=== PATIENT | female | born 1960 | race Caucasian/White ===

== ENCOUNTER 2016-10-11 11:15 | Outpatient (CLI) | payer MEDICAID | END 2016-10-11 11:16 | disposition home or self-care (01) | DX: M19.071 Primary osteoarthritis, right ankle and foot (principal) ==

== ENCOUNTER 2016-12-07 14:48 | Outpatient (CLI) | payer MEDICAID | END 2016-12-07 14:49 | disposition home or self-care (01) | DX: R53.83 Other fatigue (principal) ==

== ENCOUNTER 2017-06-15 11:35 | Emergency (ER) | payer MEDICAID ==
--- NOTE | 2017-06-15 12:18 | ED Physician Documentation ---
PD HPI ABD PAIN - Stated complaint Stated Complaint: ABD PAIN/RASH - Chief complaint Chief Complaint: General - History obtained from History obtained from: Patient - History of Present Illness Timing - onset: How many days ago (2-3 days of upper right abd pain, intermittently. Has had similar with pancreatitis in the past. Nausea but no vomiting. Thought she had yellowing of eyes. Also with left eyebrow/upper lid redness and some weeping in rounded patch over past few days. No other rash noted.) Timing - duration: Days Timing - details: Gradual onset, Still present, Waxing and waning Quality: Cramping, Aching, Pain Location: RUQ, Epigastric Radiation: No: Lower back Improved by: No: Eating, Position Worsened by: Eating, Palpation. No: Position Associated symptoms: Nausea, Loss of appetite. No: Fever, Vomiting, Diarrhea Similar symptoms before: Diagnosis (pancreatitis and usually just has clear liquids and takes meds for 1-2 days.) Recently seen: Not recently seen Review of Systems Constitutional: denies: Fever, Chills Nose: denies: Rhinorrhea / runny nose, Congestion Throat: denies: Sore throat Cardiac: denies: Chest pain / pressure Respiratory: denies: Cough GI: reports: Abdominal Pain, Nausea, Vomiting (few times). denies: Constipation , Diarrhea, Bloody / black stool : denies: Dysuria, Frequency Skin: reports: Rash (left upper eyelid/eyebrow with rounded patch red rash for few days, increasing size.). 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 06/15/17 Ondansetron Odt [Zofran] 4 mg TL Q6H PRN #15 tablet 06/15/17 Sulfamethox/Trimeth 800/160 1 each PO BID #10 tablet 06/15/17 [Bactrim Ds 800/160] oxyCODONE [Roxicodone] 5 mg PO Q4-6H PRN #15 tablet 06/15/17 - Allergies Allergies/Adverse Reactions: Allergies Allergy/AdvReac Type Severity Reaction Status Date / Time ketorolac tromethamine * Allergy Severe Hives Verified 06/15/17 12:22 [From Toradol] - Social History Does the pt smoke?: Yes Smoking Status: Current every day smoker Does the pt drink ETOH?: Yes Does the pt have substance abuse?: No - Immunizations Immunizations are current?: Yes Immunizations: TDAP current <10years - POLST Patient has POLST: No PD ED PE NORMAL - Vitals Vital signs reviewed: Yes - General General: Alert and oriented X 3, No acute distress, Well developed/nourished - HEENT HEENT: Atraumatic, PERRL (nonicteric), Ears normal, Pharynx benign - Neck Neck: Supple, no meningeal sign, No adenopathy - Cardiac Cardiac: RRR, No murmur - Respiratory Respiratory: Clear bilaterally - Abdomen Abdomen: Soft, Non distended, No organomegaly, Other (tender RUQ/epigastric area with some guarding, no percussion tender. ) - Female Female : Deferred - Rectal Rectal: Deferred - Back Back: No CVA TTP - Derm Derm: Normal color, Warm and dry, Other - Extremities Extremities: No deformity, No tenderness to palpate, No edema, No calf tenderness / cord - Neuro Neuro: Alert and oriented X 3, No motor deficit, Normal speech - Psych Psych: Normal mood Results - Vitals Vitals: Vital Signs - 24 hr 06/15/17 06/15/17 06/15/17 11:40 13:39 13:43 Temperature 36.9 C 36.7 C Heart Rate 73 69 66 Respiratory 18 16 16 Rate Blood Pressure 136/86 H 99/66 110/77 O2 Saturation 100 99 99 06/15/17 14:41 Temperature 36.5 C Heart Rate 62 Respiratory 18 Rate Blood Pressure 118/71 O2 Saturation 100 Oxygen O2 Source Room air - Labs Labs: Laboratory Tests 06/15/17 06/15/17 12:30 12:30 WBC 4.2 L RBC 4.07 L Hgb 13.1 Hct 38.9 MCV 95.6 MCH 32.2 H MCHC 33.7 RDW 16.2 H Plt Count 187 MPV 7.1 L Neut # 2.4 Lymph # 1.3 L [place] # 0.4 Eos # 0.1 Baso # 0.0 Absolute Nucleated RBC 0.00 Nucleated RBC % 0.1 Sodium 138 Potassium 3.9 Chloride 101 Carbon Dioxide 27 Anion Gap 10.0 BUN 19 Creatinine 0.6 Estimated GFR (MDRD) 103 Glucose 118 H Calcium 9.6 Total Bilirubin 0.5 AST 148 H ALT 187 H Alkaline Phosphatase 63 Total Protein 7.2 Albumin 4.5 Globulin 2.7 Albumin/Globulin Ratio 1.7 Lipase 77 H - Rads (name of study) RUQ U/S Radiology: Prelim report reviewed (liver abnormal c/w cirrhosis. CBD 9 mm. GB normal. ), EMP read contemporaneously (comparison with MRI abd 11/25 showing CBD 7 mm, is fairly similar. ) PD MEDICAL DECISION MAKING - ED course Complexity details: reviewed results (bili normal and Alk phos okay so not obvious CBD blockage. It is dilated at 9 mm but comparison is 7 mm on prior study. Labs show mild elevation lipase of 77, similar to prior labs. Does not seem significant pancreatic inflammation. The facial rash looks like small patch of impetigo on eyebrow/eyelid area. ), considered differential (eval for pancreatitis, CBD blockage, other process. ), d/w patient Departure - Departure Disposition: 01 Home, Self Care Clinical Impression: Right upper quadrant abdominal pain, Skin infection Pancreatitis, chronic Qualifiers: Pancreatitis type: unspecified pancreatitis type Qualified Code(s): K86.1 - Other chronic pancreatitis Condition: Stable Record reviewed to determine appropriate education?: Yes Instructions: ED Abdominal Pain Unkn Cause, ED Pancreatitis Follow-Up: Miguel Chatterjee PA-C [Primary Care Provider] - Prescriptions: Mupirocin 1 applic TP TID #15 oint...g. Ondansetron Odt [Zofran] 4 mg TL Q6H PRN #15 tablet PRN Reason: Nausea / Vomiting oxyCODONE [Roxicodone] 5 mg PO Q4-6H PRN #15 tablet PRN Reason: Pain Sulfamethox/Trimeth 800/160 [Bactrim Ds 800/160] 1 each PO BID #10 tablet Comments: Small frequent fluids. Clear liquid diet for the next few days. Ondansetron if needed for nausea. Oxycodone if needed for pain. Recheck with your primary care if not better over the next few more days. Your ultrasound shows some inflammation of the liver. Your pancreas numbers are just slightly elevated so consider mild pancreatitis at this time. The common bile duct does not appear clogged. Discharge Date/Time: 06/15/17 14:44
[2017-06-15] MEDS ORDERED: ONDANSETRON 4 MG/2 ML VIAL ONE ×2 (12:37→14:11)
[2017-06-15] MEDS ORDERED: HYDROmorphone 1 MG/ML CARPUJECT ONE ×2 (12:37→14:11)
[2017-06-15 12:38] LABS: BASOPHILS % (AUTO) 0.5 %; EOSINOPHILS # (AUTO) 0.1 10^3/uL (0.0-0.7); EOSINOPHILS % (AUTO) 1.5 %; HCT - HEMATOCRIT 38.9 % (37.0-47.0); HGB - HEMOGLOBIN 13.1 g/dL (12.0-16.0); LYMPHOCYTES # (AUTO) 1.3 10^3/uL (1.5-3.5); LYMPHOCYTES % (AUTO) 31.4 %; MEAN CORPUSCULAR HEMOGLOBIN 32.2 pg (27.0-31.0); MEAN CORPUSCULAR HGB CONC 33.7 g/dL (32.0-36.0); MEAN CORPUSCULAR VOLUME 95.6 fL (81.0-99.0); MEAN PLATELET VOLUME 7.1 fL (7.9-10.8); MONOCYTES # (AUTO) 0.4 10^3/uL (0.0-1.0); MONOCYTES % (AUTO) 9.5 %; NEUTROPHILS # (AUTO) 2.4 10^3/uL (1.5-6.6); NEUTROPHILS % (AUTO) 57.1 %; NUCLEATED RED BLOOD CELLS AUTO 0.1 /100WBC; RED BLOOD COUNT 4.07 10^6/uL (4.20-5.40); RED CELL DISTRIBUTION WIDTH 16.2 % (12.0-15.0); UNCORRECTED WHITE BLOOD COUNT 4.2 x10^3/uL; WHITE BLOOD COUNT 4.2 x10^3/uL (4.8-10.8)
[2017-06-15] MEDS ORDERED: MUPIROCIN 2% OINT 1 GM ONE (12:38)
[2017-06-15 12:57] LABS: ALBUMIN/GLOBULIN RATIO 1.7 (1.0-2.2); BILIRUBIN,TOTAL 0.5 mg/dL (0.2-1.0); CALCIUM 9.6 mg/dL (8.5-10.3); CREATININE 0.6 mg/dL (0.4-1.0); POTASSIUM 3.9 mmol/L (3.5-5.0); TOTAL PROTEIN 7.2 g/dL (6.7-8.2)
[2017-06-15] MEDS: SODIUM CHLORIDE 0.9% 1,000 ML IV ONE (13:12)
[2017-06-15] MEDS: MUPIROCIN 2% OINT 1 GM TOP STA (13:13)
[2017-06-15] MEDS: ONDANSETRON 4 MG/2 ML VIAL IVP STA ×2 (13:13→14:10)
[2017-06-15] MEDS: HYDROmorphone 1 MG/ML CARPUJECT IVP STA ×2 (13:13→14:10)
--- NOTE | 2017-06-15 13:41 | Ultrasound Report ---
RIGHT UPPER QUADRANT ULTRASOUND: 06/15/2017 CLINICAL INDICATION: Pain. TECHNIQUE: Real-time scanning was performed with food service sales representatives static images obtained. FINDINGS: The liver is enlarged, measuring 19.5 cm. Hepatic echogenicity is diffusely increased, and the margin appears mildly lobular, suggestive of cirrhosis. No intrahepatic biliary dilatation is georgina reciated. The common bile duct is enlarged, measuring 9 mm. The gallbladder is unremarkable. The righ t kidney measures 10.4 cm, and demonstrates no hydronephrosis. The pancreatic duct is mildly prominen t, as noted on previous MRI of 12/09/2015. IMPRESSION: A 9 MM COMMON BILE DUCT. NORMAL GALLBLADDER. HETEROGENEOUS, ECHOGENIC LIVER, WITH POSSIBL E EARLY CIRRHOTIC CHANGES. NO EVIDENCE OF CHOLELITHIASIS. JOB #: [id number] EXT JOB #:[id number]
[2017-06-15 14:41] VITALS: BP 118/71
--- NOTE | 2017-06-16 13:24 | ED Physician Documentation ---
ED Addendum - Addendum Addendum: 06/16/17 13:23 pt needed her septra and bactroban rx reprinted
== END 2017-06-15 14:44 | disposition home or self-care (01) ==
LOC: ED 11:35
DX: R10.10 Upper abdominal pain, unspecified (principal); L08.9 Local infection of the skin and subcutaneous tissue, unspecified; I25.2 Old myocardial infarction; F17.200 Nicotine dependence, unspecified, uncomplicated
CPT/HCPCS: 36415; 76705; 80053; 83690; 85025; 96361; 96374; 96375; 96376; 99283; 99284

== ENCOUNTER 2018-02-08 19:05 | Inpatient (IN) | payer MEDICAID ==
[2018-02-08] MEDS ORDERED: ONDANSETRON 4 MG/2 ML VIAL IVP STA (19:51)
[2018-02-08] MEDS ORDERED: MORPHINE 10 MG/ML VIAL IVP STA ×3 (19:51→22:16)
[2018-02-08] MEDS ORDERED: SODIUM CHLORIDE 0.9% 1,000 ML IV ONE (19:51)
--- NOTE | 2018-02-08 19:55 | ED Physician Documentation ---
PD HPI ABD PAIN - Stated complaint Stated Complaint: ABD PX/COUGH - Chief complaint Chief Complaint: Abd Pain - History obtained from History obtained from: Patient - History of Present Illness Timing - onset: Other (57-year-old woman with history of alcoholism and pancreas divisum status post stent placement and later removal about 12 years ago while in [place] in her common bile duct and pancreatic duct. She has episodes of pancreatitis, the last was a few months ago. She had been sober for alcohol from several months. But a week ago she started to feel right upper quadrant epigastric pain associated with productive cough and increased salivation. She has not been able to eat and complains of decreased bowel movements as well. There is no associated fever. Cough is productive of white sputum. She is short of breath. She said that she really has been drinking except for today she had a few sips of a drink to try to help her get sleep.) Review of Systems Ten Systems: 10 systems reviewed and negative Constitutional: reports: Fatigue, Sweats. denies: Fever, Chills Ears: denies: Ear pain, Drainage/discharge Nose: denies: Rhinorrhea / runny nose, Congestion Throat: denies: Sore throat Cardiac: denies: Chest pain / pressure, Palpitations Respiratory: reports: Dyspnea, Cough GI: reports: Abdominal Pain, Nausea, Vomiting. 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 11/16/17 oxyCODONE [Roxicodone] 5 mg PO Q4-6H #15 tablet 11/16/17 - Allergies Allergies/Adverse Reactions: Allergies Allergy/AdvReac Type Severity Reaction Status Date / Time ketorolac tromethamine * Allergy Severe Hives Verified 11/13/17 19:25 [From Toradol] - Social History Does the pt smoke?: Yes Smoking Status: Current every day smoker Does the pt drink ETOH?: Yes Does the pt have substance abuse?: No - Family History Family history: reports: Non contributory - Immunizations Immunizations are current?: Yes Immunizations: TDAP current <10years - POLST Patient has POLST: No POLST Status: Full Code PD ED PE NORMAL - Vitals Vital signs reviewed: Yes - General General: Alert and oriented X 3, Other (Shaky and tremulous) - HEENT HEENT: PERRL, EOMI - Neck Neck: Supple, no meningeal sign, No bony TTP - Cardiac Cardiac: RRR, No murmur - Respiratory Respiratory: No respiratory distress, Clear bilaterally - Abdomen Abdomen: Soft, Other (She has modest upper abdominal tenderness especially in the right upper quadrant with very firm liver.) - Back Back: No CVA TTP, No spinal TTP - Derm Derm: Normal color, Warm and dry - Extremities Extremities: No deformity, No tenderness to palpate, No edema, No calf tenderness / cord - Neuro Neuro: Alert and oriented X 3 Eye Opening: Spontaneous Motor: Obeys Commands Verbal: Oriented GCS Score: 15 Results - Vitals Vitals: Vital Signs - 24 hr 02/08/18 02/08/18 02/08/18 19:17 20:15 21:20 Temperature 36.5 C Heart Rate 107 H 98 95 Respiratory 18 17 18 Rate Blood Pressure 163/95 H 147/93 H 135/88 H O2 Saturation 96 96 99 Oxygen O2 Source Room air - EKG (time done) 1938 Rate: Rate (enter#) (99) Rhythm: NSR Severance: Normal Ischemia: Q waves (inferior), Non specific changes (Increased flat anterior T waves compared to the last EKG in the chart which was November 13, 2017) - Labs Labs: Laboratory Tests 02/08/18 02/08/18 02/08/18 19:35 19:35 19:35 WBC 6.3 RBC 3.94 L Hgb 12.8 Hct 38.7 MCV 98.2 MCH 32.6 H MCHC 33.2 RDW 15.2 H Plt Count 173 MPV 8.0 Neut # 4.7 Lymph # 1.2 L [place] # 0.3 Eos # 0.0 Baso # 0.0 Absolute Nucleated RBC 0.00 Nucleated RBC % 0.0 Sodium 132 L Potassium 3.4 L Chloride 89 L Carbon Dioxide 29 Anion Gap 14.0 H BUN 6 Creatinine 0.5 Estimated GFR (MDRD) 128 Glucose 113 H Calcium 9.3 Magnesium 1.9 Total Bilirubin 1.5 H AST 192 H ALT 82 H Alkaline Phosphatase 184 H Troponin I < 0.04 Total Protein 7.5 Albumin 4.2 Globulin 3.3 Albumin/Globulin Ratio 1.3 Lipase 68 H Urine Opiates Screen Ur Oxycodone Screen Urine Methadone Screen Ur Propoxyphene Screen Ur Barbiturates Screen Ur Tricyclics Screen Ur Phencyclidine Scrn Ur Amphetamine Screen U Methamphetamines Scrn U Benzodiazepines Scrn Urine Cocaine Screen U Cannabinoids Screen Ethyl Alcohol 28.0 02/08/18 20:35 WBC RBC Hgb Hct MCV MCH MCHC RDW Plt Count MPV Neut # Lymph # [place] # Eos # Baso # Absolute Nucleated RBC Nucleated RBC % Sodium Potassium Chloride Carbon Dioxide Anion Gap BUN Creatinine Estimated GFR (MDRD) Glucose Calcium Magnesium Total Bilirubin AST ALT Alkaline Phosphatase Troponin I Total Protein Albumin Globulin Albumin/Globulin Ratio Lipase Urine Opiates Screen POSITIVE H Ur Oxycodone Screen NEGATIVE Urine Methadone Screen NEGATIVE Ur Propoxyphene Screen NEGATIVE Ur Barbiturates Screen NEGATIVE Ur Tricyclics Screen NEGATIVE Ur Phencyclidine Scrn NEGATIVE Ur Amphetamine Screen NEGATIVE U Methamphetamines Scrn NEGATIVE U Benzodiazepines Scrn NEGATIVE Urine Cocaine Screen NEGATIVE U Cannabinoids Screen NEGATIVE Ethyl Alcohol - Rads (name of study) CXR Radiology: EMP read contemporaneously (normal) CT A?P Radiology: EMP read contemporaneously (Fatty liver, chronic L2 compression fracture, distended gallbladder) PD MEDICAL DECISION MAKING - ED course ED course: 57-year-old woman who is evasive about her alcohol use presents with upper abdominal pain, vomiting, dehydration. Some shaking is concerning for alcohol withdrawal. Workup demonstrates significantly enlarged liver, modestly elevated liver enzymes and lipase suggesting a combination of liver disease, gastritis, and pancreatitis as the cause of her pain which was very difficult to control in the emergency department and required multiple divided doses of narcotic analgesia IV fluids etc. Spoke with Dr. Aguilar for observation at 10: 20 PM. Departure - Departure Disposition: ED Place in Observation Clinical Impression: H/O ETOH abuse, LFT elevation Vomiting Qualifiers: Vomiting type: unspecified Vomiting Intractability: intractable Nausea presence : with nausea Qualified Code(s): R11.2 - Nausea with vomiting, unspecified Abdominal pain Qualifiers: Abdominal location: epigastric Qualified Code(s): R10.13 - Epigastric pain Pancreatitis Qualifiers: Chronicity: acute Pancreatitis type: alcohol induced Acute pancreatitis complication: no infection or necrosis Qualified Code(s): K85.20 - Alcohol induced acute pancreatitis without necrosis or infection Condition: Stable
[2018-02-08 20:01] LABS: BASOPHILS % (AUTO) 0.2 %; EOSINOPHILS % (AUTO) 0.2 %; HGB - HEMOGLOBIN 12.8 g/dL (12.0-16.0); LYMPHOCYTES # (AUTO) 1.2 10^3/uL (1.5-3.5); LYMPHOCYTES % (AUTO) 18.6 %; MEAN CORPUSCULAR HEMOGLOBIN 32.6 pg (27.0-31.0); MEAN CORPUSCULAR HGB CONC 33.2 g/dL (32.0-36.0); MEAN CORPUSCULAR VOLUME 98.2 fL (81.0-99.0); MONOCYTES # (AUTO) 0.3 10^3/uL (0.0-1.0); MONOCYTES % (AUTO) 5.6 %; NEUTROPHILS # (AUTO) 4.7 10^3/uL (1.5-6.6); NEUTROPHILS % (AUTO) 75.4 %; PLT - PLATELET COUNT 173 10^3/uL (130-450); RED BLOOD COUNT 3.94 10^6/uL (4.20-5.40); RED CELL DISTRIBUTION WIDTH 15.2 % (12.0-15.0); WHITE BLOOD COUNT 6.3 x10^3/uL (4.8-10.8)
[2018-02-08 20:15] LABS: ALBUMIN 4.2 g/dL (3.2-5.5); ALBUMIN/GLOBULIN RATIO 1.3 (1.0-2.2); BILIRUBIN,TOTAL 1.5 mg/dL (0.2-1.0); CALCIUM 9.3 mg/dL (8.5-10.3); CREATININE 0.5 mg/dL (0.4-1.0); MAGNESIUM 1.9 mg/dL (1.7-2.8); TOTAL PROTEIN 7.5 g/dL (6.7-8.2)
[2018-02-08] MEDS ORDERED: THIAMINE INJ 100 MG in SODIUM CHLORIDE 0.9% 50 ML IV STA (20:18)
[2018-02-08] MEDS ORDERED: IOPAMIDOL-300 100 ML VIAL ONE (20:41)
[2018-02-08 20:53] LABS: MUDS CUTOFF CONCENTRATIONS CUTOFF CONC BELOW:
[2018-02-08 21:10] LABS: COCAINE SCREEN URINE NEGATIVE (NEGATIVE); METHAMPHETAMINES SCREEN, URINE NEGATIVE (NEGATIVE)
[2018-02-08 21:11] LABS: AMPHETAMINE SCREEN,URINE NEGATIVE (NEGATIVE); BENZODIAZEPINES SCREEN, URINE NEGATIVE (NEGATIVE); METHADONE SCREEN, URINE NEGATIVE (NEGATIVE); OPIATE SCREEN, URINE POSITIVE (NEGATIVE); OXYCODONE SCREEN, URINE NEGATIVE (NEGATIVE); TRICYCLIC ANTIDEPRESSANT,URINE NEGATIVE (NEGATIVE)
[2018-02-08 21:12] LABS: PROPOXYPHENE SCREEN, URINE NEGATIVE (NEGATIVE)
[2018-02-08] MEDS ORDERED: IOPAMIDOL-300 100 ML VIAL IVP ONE (21:17)
--- NOTE | 2018-02-08 21:33 | XRAY Preliminary Report ---
Exam: XR CHEST 2 VIEW X-RAY IMPRESSION: No acute cardiopulmonary abnormality. [facility] SITE ID: [id number]
--- NOTE | 2018-02-08 21:33 | XRAY Report ---
EXAM: CHEST RADIOGRAPHY EXAM DATE: 02/08/2018 08:46 PM. CLINICAL HISTORY: Productive cough x1 week COMPARISON: 03/10/2015. TECHNIQUE: 2 views. FINDINGS: Lungs/Pleura: Normal volumes. No focal consolidation or evidence of edema. No pleural effusion or pne umothorax. Mediastinum: Normal cardiomediastinal contour. Other: Mild left convex curvature of the upper lumbar spine. IMPRESSION: No acute cardiopulmonary abnormality. [facility] Referring Provider Line: [phone] SITE ID: [id number]
--- NOTE | 2018-02-08 22:08 | CT Preliminary Report ---
Exam: CT ABDOMEN/PELVIS W/ IMPRESSION: 1. Distended gallbladder without visible stones or dilated ducts. 2. Fatty liver. 3. Chronic L2 compression fracture. [facility] SITE ID: [id number]
--- NOTE | 2018-02-08 22:08 | CT Report ---
EXAM: CT ABDOMEN AND PELVIS EXAM DATE: 02/08/2018 08:49 PM. CLINICAL HISTORY: Upper abdomen pain. Nausea and vomiting. COMPARISONS: 11/13/2017. TECHNIQUE: Routine helical CT imaging was performed through the abdomen and pelvis. IV contrast: 100 ML ISOVUE 300. Enteric contrast: No. Reconstructions: Coronal and sagittal. In accordance with CT protocol optimization, one or more of the following dose reduction techniques w ere utilized for this exam: automated exposure control, adjustment of mA and/or KV based on patient s ize, or use of iterative reconstructive technique. FINDINGS: Lung Bases: Unremarkable. Liver: Few small low-density. Gallbladder/Bile Ducts: Distended gallbladder. No stones or dilated ducts. Spleen: Normal. Pancreas: Normal. Adrenal Glands: Normal. Kidneys: Normal. No masses or hydronephrosis. Peritoneal Cavity/Bowel: Normal. No free fluid, free air or adenopathy. No masses or acute inflammato ry process. Nonvisualized appendix. Pelvic Organs: The reproductive organs and bladder are unremarkable. Vasculature: No aneurysms or other significant abnormality. Bones: Chronic L2 compression fracture. Degenerative disk disease at L4-L5 and L5-S1. Other: None. IMPRESSION: 1. Distended gallbladder without visible stones or dilated ducts. 2. Fatty liver. 3. Chronic L2 compression fracture. [facility] Referring Provider Line: [phone] SITE ID: [id number]
[2018-02-08] MEDS ORDERED: LORazepam 2 MG/ML VIAL IVP STA (22:16)
[2018-02-08] MEDS ORDERED: LACTATED RINGERS 1,000 ML IV STA (22:17)
[2018-02-08] MEDS ORDERED: ALBUTEROL NEB 2.5 MG/3 ML INH PRN (23:08)
[2018-02-08] MEDS ORDERED: ACETAMINOPHEN 325 MG TABLET PO PRN (23:08)
[2018-02-08] MEDS ORDERED: PROMETHAZINE 25 MG/1 ML VIAL IM PRN (23:08)
[2018-02-08] MEDS ORDERED: ONDANSETRON 4 MG/2 ML VIAL IVP PRN (23:08)
[2018-02-08] MEDS ORDERED: PROCHLORPERAZINE 10 MG/2 ML VIAL IVP PRN (23:08)
[2018-02-08] MEDS ORDERED: ZOLPIDEM 5 MG TABLET PO PRN (23:08)
[2018-02-08] MEDS ORDERED: oxyCODONE 5 MG TABLET PO PRN (23:08)
--- NOTE | 2018-02-08 23:26 | HISTORY & PHYSICAL EXAMINATION ---
Chief Complaint - Chief Complaint Chief Complaint: Abdominal pain History of Present Illness - Admitted From Admitted From:: Emergency Department - History Obtained From Records Reviewed: Yes History obtained from: Patient Exam Limitations: None - History of Present Illness HPI Comment/Other: Patient is a 57-year-old female with a past medical history significant for anxiety, migraines, osteoarthritis, alcohol abuse, opioid dependence on suboxone , fatty liver and pancreatitis with history of ductal stenosis treated with ERCP , sphincterotomy and stent placement with removal of stents 2 weeks later who presented to the emergency department with a chief complaint of abdominal pain. The patient was recently hospitalized at [facility] about 2 months ago at which time she was found to have acalculus cholecystitis but was discharged without getting a cholecystectomy as her symptoms and numbers seem to improve. Today the patient presents with 1 week of right upper quadrant abdominal pain. The patient states that over the last week she has been experiencing right upper quadrant abdominal pain and feels as though her abdomen is hard as a rock. She states the pain is dull and constant but she will intermittently have attacks where the pain will become severe and be 10 out of 10. She states the pain comes in waves and is unrelated to her eating. The patient states that over the last 4-5 days she has been unable to eat anything as she has been extremely nauseated and had severe abdominal pain. She states that when she did try to eat chicken broth the other day she vomited right back up. She also states that she is constipated. She states that she is not a heavy drinker and only took a sip of alcohol earlier today but otherwise is not drinking on a daily basis. She states that she stopped taking her Suboxone yesterday as she felt that that was just blocking any pain medication she was taking. She also states that she has been experiencing symptoms of congestion and mucus production every morning. She states that when she wakes up in the morning she feels her eyes are watery and she is congested in her throat she states that she coughs for several minutes and feels short of breath but after about 2-3 hours she states that she does feel much better. She states that today she felt like she was dying she states that she had to lay on her bed and is unable to eat or drink. She states her hands were tingling bilaterally and she states that she just felt like she was going to from her abdominal pain and everything that was going on. Patient denies any headaches, blurred vision, sore throat, difficulty swallowing , palpitations, chest pain, fevers, orthopnea, PND, increased lower extremity swelling, diarrhea, urinary urgency, urinary frequency, dysuria, joint pain, joint swelling, back pain, neck stiffness, recent unintentional weight loss, hair loss, skin rashes, night sweats or any focal neurologic deficits. On presentation to the emergency department the patient was afebrile she was slightly tachycardic and hypertensive but was not in any respiratory distress. The patient was complaining of significant abdominal pain and required several doses of IV pain medication in the emergency department with 3 doses of IV morphine and also required 1 dose of IV Ativan as she appeared to be anxious. The patient's lab work revealed a sodium of 132, potassium of 3.4, bilirubin of 1.5, AST of 192, ALT of 82, alk phos of 184, lipase of 68 and a normal CBC. The patient's U tox was positive for opioids and blood alcohol level was 28. The patient underwent a chest x-ray in the emergency department which revealed no acute cardiopulmonary abnormality, she also underwent a CT of her abdomen and pelvis in the emergency department which revealed a distended gallbladder without visible stones or dilated ducts and a fatty liver. The patient then underwent an ultrasound of her abdomen which showed a normal-appearing gallbladder with questionable extrahepatic bile duct dilation and a fatty liver. Due to the patient being unable to tolerate any oral medication and having intractable abdominal pain the patient was placed in observation for symptom management and further workup. 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 Social History Notes: Patient lives in [place], [place] with her . She has 2 children one son and one daughter. 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 She continues to smoke 3 cigarettes a day and states that she does drink alcohol but only once a week and she drinks 1 large glass of wine. She denies any illicit drug use. - Substance History Use: Uses substance without health or social issues: Tobacco - POLST Patient has POLST: No POLST Status: Full Code Meds/Allgy - Home Medications Home Medications: Ambulatory Orders Medication Instructions Recorded Confirmed Buprenorphine HCl/Naloxone HCl 2 film TOP DAILY 11/14/17 11/14/17 [Suboxone 8 mg-2 mg Sl Film] Ciprofloxacin HCl [Cipro] 500 mg PO BID #10 tablet 11/16/17 Metronidazole [Flagyl] 500 mg PO BID #10 tablet 11/16/17 Omeprazole 20 mg PO DAILY #7 tablet. 11/16/17 oxyCODONE [Roxicodone] 5 mg PO Q4-6H #15 tablet 11/16/17 - Allergies Allergies/Adverse Reactions: Allergies Allergy/AdvReac Type Severity Reaction Status Date / Time ketorolac tromethamine * Allergy Severe Hives Verified 11/13/17 19:25 [From Toradol] Review of Systems - Other Findings Other Findings: A comprehensive review of systems was performed the pertinent positives and negatives are stated above in the HPI and the remainder of the review of systems is negative. Exam - Vital Signs Vital Signs: Vital Signs x48h Temp Pulse Resp BP Pulse Ox 02/08/18 22:48 94 16 99 02/08/18 21:20 95 18 135/88 H 99 02/08/18 20:15 98 17 147/93 H 96 02/08/18 19:17 36.5 C 107 H 18 163/95 H 96 - Physical Exam General Appearance: positive: Alert, Moderate distress (Patient is in significant pain and distress), Anxious, Other (She is very flushed and appears quite disheveled) Eyes Bilateral: positive: Normal inspection, PERRL, EOMI, No lid inflammation, Conjunctivae nml, No scleral icterus ENT: positive: ENT inspection nml, Pharynx nml, Dry mucous membranes. negative : Purulent nasal drainage, Pharyngeal erythema, Oral lesions Neck: positive: Nml inspection, Thyroid nml, No JVD, Trachea midline. negative : Lymphadenopathy (R), Lymphadenopathy (L), Stiff neck, Carotid bruit, Tracheal deviation Respiratory: positive: Chest non-tender, No respiratory distress, Breath sounds nml. negative: Wheezes, Rales, Rhonchi Cardiovascular: positive: Regular rate & rhythm, No murmur, No gallop Peripheral Pulses: positive: 2+ Abdomen: positive: Tenderness (Tender especially in the right upper quadrant and epigastric areas, with guarding and hepatomegaly.), Guarding, Hepatomegaly. negative: Rebound Back: positive: Nml inspection. negative: CVA tenderness (R), CVA tenderness (L ) Skin: positive: Warm, Dry, Other (Flushed appearing). negative: Cyanosis, Diaphoresis, Pallor Extremities: positive: Non-tender, Full ROM, Nml appearance, No pedal edema Neurologic/Psychiatric: positive: Oriented x3, CN's nml (2-12), Motor nml, Sensation nml, Mood/affect nml Conclusion/Plan - Problem List (1) Abdominal pain Conclusion/Plan: Patient presents with abdominal pain that has been going on for the last week. Patient has had abdominal pain in the past secondary to pancreatitis and most recently due to likely acalculus cholecystitis. Today the patient presents with right upper quadrant abdominal pain her description is very much like cholecystitis or pain due to gallstones. However her CT and abdominal ultrasound show a normal gallbladder. The patient does have some extrahepatic biliary ductal dilation on the ultrasound which is concerning. The patient's abdominal pain is most likely secondary to aggravation of her fatty liver due to alcohol abuse. Could also be secondary to gastritis secondary to alcohol. There could also be some biliary obstruction. At this point patient's pain is intractable and she is unable to keep anything down orally therefore she needs to be hospitalized. Plan: N.p.o. IV fluids MRCP GI cocktail and Pepcid IV pain medication IV antiemetics Qualifiers: Abdominal location: right upper quadrant Qualified Code(s): R10.11 - Right upper quadrant pain (2) Fatty liver Conclusion/Plan: The patient presents with right upper quadrant abdominal pain for about 1 week. The patient's liver appears to be enlarged on examination and CT and ultrasound both show a fatty liver. The patient's LFTs are elevated and a 2-1 pattern of AST to ALT and patient does have positive alcohol in her bloodstream. Given this it is likely that the patient has been continuing to drink despite denying it. Patient's drinking is likely led to worsening right upper quadrant abdominal pain from her previously fatty liver. Patient needs to abstain from drinking alcohol and this was explained to the patient she was counseled. In the meantime we will treat the patient with multivitamins, thiamine, folic acid and IV fluid. (3) Hyponatremia Conclusion/Plan: Patient has hyponatremia with a sodium of 132. Patient appears to be hypovolemic with hyponatremia likely secondary to poor oral intake and nausea. Patient will be given IV fluids and will continue to monitor the patient's sodium (4) Hypokalemia Conclusion/Plan: Patient does have hypokalemia with a potassium of 3.4. The patient's potassium will be replaced with IV fluids and will continue to monitor the patient's potassium. Likely patient's potassium is low secondary to nausea and vomiting. (5) H/O ETOH abuse Conclusion/Plan: The patient does have a history of alcohol abuse although she denies drinking heavily at this time. The patient does have positive alcohol in her bloodstream although not at a large concentration. The patient also has elevated LFTs with AST ALT 2:1 ratio. This makes me suspicious that she is still drinking more than she lets on. The patient did also state that she was shaky at home and did appear to be tachycardic on presentation. Although the patient does not appear to be an active alcohol withdrawal we will be very cautious and will treat her with Ativan throughout the hospitalization. Patient will also be given IV thiamine, folic acid and multivitamin. We will monitor closely for alcohol withdrawal. The patient was counseled on need to quit drinking (6) LFT elevation Conclusion/Plan: The patient does have elevated LFTs with 2-1 ratio of AST and ALT and a mildly elevated bilirubin and alk phos. It appears that the LFT elevation is likely due to alcoholic hepatitis. We will monitor the patient's LFTs and treat as above. (7) Pancreatitis Conclusion/Plan: The patient has history of pancreatitis requiring stent placement in the past. Currently the patient does not appear to have pancreatitis as her lipase is only 68. The patient however does continue to have intractable nausea as well as intractable pain. For now the patient will be treated like a pancreatitis with being n.p.o. and symptom management. Qualifiers: Chronicity: acute Pancreatitis type: alcohol induced Acute pancreatitis complication: no infection or necrosis Qualified Code(s): K85.20 - Alcohol induced acute pancreatitis without necrosis or infection (8) Opioid dependence Conclusion/Plan: The patient does have a history of opioid dependence secondary to her history of pancreatitis and long-term use of opioids. The patient is currently on Suboxone to deal with her dependence. The patient states that she did not take Suboxone the last 2 days. The we will need to confirm her dose of Suboxone and give it to her here. The patient will be given IV pain medications in the acute setting of her current condition but we will be careful about how much we will give in for how long we will continue to give it. Qualifiers: Substance use status: in remission Qualified Code(s): F11.21 - Opioid dependence, in remission (9) Anxiety and depression Conclusion/Plan: The patient has history of anxiety and depression and appears to be quite anxious on presentation. The patient will be placed on Ativan every 2 hours as needed while she is hospitalized. (10) Tobacco abuse Conclusion/Plan: The patient continues to drink 3-4 cigarettes a day. The patient was counseled on need to quit smoking. The patient will be offered a nicotine patch while she is hospitalized. - Lab Results Lab results reviewed: Yes Fish Bones: 02/08/18 19:35 02/08/18 19:35 Other Lab Results: Laboratory Results WBC 6.3 x10^3/uL (4.8-10.8) 02/08/18 19:35 RBC 3.94 10^6/uL (4.20-5.40) L 02/08/18 19:35 Hgb 12.8 g/dL (12.0-16.0) 02/08/18 19:35 Hct 38.7 % (37.0-47.0) 02/08/18 19:35 MCV 98.2 fL (81.0-99.0) 02/08/18 19:35 MCH 32.6 pg (27.0-31.0) H 02/08/18 19:35 MCHC 33.2 g/dL (32.0-36.0) 02/08/18 19:35 RDW 15.2 % (12.0-15.0) H 02/08/18 19:35 Plt Count 173 10^3/uL (130-450) 02/08/18 19:35 MPV 8.0 fL (7.9-10.8) 02/08/18 19:35 Neut # 4.7 10^3/uL (1.5-6.6) 02/08/18 19:35 Lymph # 1.2 10^3/uL (1.5-3.5) L 02/08/18 19:35 [place] # 0.3 10^3/uL (0.0-1.0) 02/08/18 19:35 Eos # 0.0 10^3/uL (0.0-0.7) 02/08/18 19:35 Baso # 0.0 10^3/uL (0.0-0.1) 02/08/18 19:35 Absolute Nucleated RBC 0.00 x10^3/uL 02/08/18 19:35 Nucleated RBC % 0.0 /100WBC 02/08/18 19:35 Sodium 132 mmol/L (135-145) L 02/08/18 19:35 Potassium 3.4 mmol/L (3.5-5.0) L 02/08/18 19:35 Chloride 89 mmol/L (101-111) L 02/08/18 19:35 Carbon Dioxide 29 mmol/L (21-32) 02/08/18 19:35 Anion Gap 14.0 (6-13) H 02/08/18 19:35 BUN 6 mg/dL (6-20) 02/08/18 19:35 Creatinine 0.5 mg/dL (0.4-1.0) 02/08/18 19:35 Estimated GFR (MDRD) 128 (>89) 02/08/18 19:35 Glucose 113 mg/dL (70-100) H 02/08/18 19:35 Calcium 9.3 mg/dL (8.5-10.3) 02/08/18 19:35 Magnesium 1.9 mg/dL (1.7-2.8) 02/08/18 19:35 Total Bilirubin 1.5 mg/dL (0.2-1.0) H 02/08/18 19:35 AST 192 IU/L (10-42) H 02/08/18 19:35 ALT 82 IU/L (10-60) H 02/08/18 19:35 Alkaline Phosphatase 184 IU/L (42-121) H 02/08/18 19:35 Troponin I < 0.04 ng/mL (<0.49) 02/08/18 19:35 Total Protein 7.5 g/dL (6.7-8.2) 02/08/18 19:35 Albumin 4.2 g/dL (3.2-5.5) 02/08/18 19:35 Globulin 3.3 g/dL (2.1-4.2) 02/08/18 19:35 Albumin/Globulin Ratio 1.3 (1.0-2.2) 02/08/18 19:35 Lipase 68 U/L (22-51) H 02/08/18 19:35 Urine Opiates Screen POSITIVE (NEGATIVE) H 02/08/18 20:35 Ur Oxycodone Screen NEGATIVE (NEGATIVE) 02/08/18 20:35 Urine Methadone Screen NEGATIVE (NEGATIVE) 02/08/18 20:35 Ur Propoxyphene Screen NEGATIVE (NEGATIVE) 02/08/18 20:35 Ur Barbiturates Screen NEGATIVE (NEGATIVE) 02/08/18 20:35 Ur Tricyclics Screen NEGATIVE (NEGATIVE) 02/08/18 20:35 Ur Phencyclidine Scrn NEGATIVE (NEGATIVE) 02/08/18 20:35 Ur Amphetamine Screen NEGATIVE (NEGATIVE) 02/08/18 20:35 U Methamphetamines Scrn NEGATIVE (NEGATIVE) 02/08/18 20:35 U Benzodiazepines Scrn NEGATIVE (NEGATIVE) 02/08/18 20:35 Urine Cocaine Screen NEGATIVE (NEGATIVE) 02/08/18 20:35 U Cannabinoids Screen NEGATIVE (NEGATIVE) 02/08/18 20:35 Ethyl Alcohol 28.0 mg/dL 02/08/18 19:35 - Diagnostic Imaging Results Diagnostic Imaging Results: positive: Final report reviewed Diagnostic Imaging Results Comments: Abdominal ultrasound Impression: 1. Gallbladder appears normal. 2. Questionable extrahepatic bile duct dilatation is very poorly seen. No cholelithiasis seen in the short visualized portion of the duct. If there is continued clinical concern for obstructive cause of bilirubin elevation, ERCP or MRCP should be considered. 3. Quite fatty liver. CT abdomen/pelvis Impression: 1. Distended gallbladder without visible stone or dilated ducts 2. Fatty liver 3. Chronic L2 compression fracture Chest x-ray Impression: No acute cardiopulmonary abnormality. - EKG Results EKG Interpreted Independently: Yes EKG Comparison: Unchanged from prior EKG Core Measures - Anticipated LOS I expect patient to be DC'd or transferred within 96 hours.: Yes - DVT/VTE - Prophylaxis VTE/DVT Prophylaxis med ordered at admit?: Yes
--- NOTE | 2018-02-09 01:36 | Ultrasound Preliminary Report ---
Exam: US ABDOMEN COMPLETE IMPRESSION: 1. Gallbladder appears normal. 2. Questionable extra hepatic bile duct dilatation is very poorly seen. No cholelithiasis seen in the short visualized portion of the duct. If there is continued clinical concern for an obstructive caus e of bilirubin elevation, ERCP or MRCP should be considered. 3. Quite fatty liver. [facility] SITE ID: [id number]
--- NOTE | 2018-02-09 01:48 | Ultrasound Report ---
EXAM: ABDOMEN ULTRASOUND EXAM DATE: 02/09/2018 12:58 AM. CLINICAL HISTORY: Right upper quadrant abdominal pain, elevated bilirubin. COMPARISON: CT 02/08/2018, ultrasound 11/14/2017. TECHNIQUE: Real-time scanning was performed with static images obtained. FINDINGS: Liver: Large and echogenic without gross focal abnormality seen. Main portal vein flow: Hepatopetal. Gallbladder: Normal. No stones, wall thickening, or sonographic Cheek's sign. Biliary System: No gross intrahepatic ductal dilatation. Extrahepatic duct not well-seen but question ably up to 11 mm. No choledocholithiasis seen in the very short portion of the extrahepatic duct visu alized. Pancreas: Visualized portion is unremarkable. Kidneys: Right: 12 cm longitudinally. Normal. No contour-deforming mass, stones, or hydronephrosis. Left: 11 cm longitudinally. Normal. No contour-deforming mass, stones, or hydronephrosis. Spleen: 12 cm. Normal in size and echotexture. Aorta and Inferior Vena Cava: Unremarkable. Other: None. IMPRESSION: 1. Gallbladder appears normal. 2. Questionable extrahepatic bile duct dilatation is very poorly seen. No choledocholithiasis seen in the short visualized portion of the duct. If there is continued clinical concern for an obstructive cause of bilirubin elevation, ERCP or MRCP should be considered. 3. Quite fatty liver. [facility] Referring Provider Line: [phone] SITE ID: [id number]
[2018-02-09] MEDS: MORPHINE 2 MG/ML SYRINGE IVP PRN ×7 (02:21→22:45)
[2018-02-09] MEDS: SODIUM CHLORIDE FLUSH 0.9% 10 ML SYRINGE IVP SCH ×3 (02:21→17:31)
[2018-02-09] MEDS: FOLIC ACID 1 MG TABLET PO SCH ×2 (02:25→11:42)
[2018-02-09] MEDS: GI COCKTAIL 120 ML BOTTLE PO SCH ×4 (02:26→18:20)
[2018-02-09] MEDS: THIAMINE 100 MG TABLET PO SCH ×2 (02:29→11:42)
[2018-02-09] MEDS: NS W/20 MEQ KCL 1,000 ML IV SCH ×3 (02:30→17:35)
[2018-02-09] MEDS: FAMOTIDINE 20 MG/50 ML 50 ML IV SCH ×3 (02:30→20:24)
[2018-02-09] MEDS: MULTIVITAMIN 10 ML in SODIUM CHLORIDE 0.9% 1,000 ML IV SCH ×2 (03:30→20:35)
[2018-02-09] MEDS: LORazepam 2 MG/ML VIAL IVP PRN ×2 (04:48→20:25)
[2018-02-09] MEDS: SODIUM CHLORIDE FLUSH 0.9% 10 ML SYRINGE IVP PRN (04:49)
[2018-02-09] MEDS: oxyCODONE 5 MG TABLET PO PRN ×2 (06:57→18:19)
[2018-02-09 07:10] LABS: BASOPHILS % (AUTO) 0.6 %; EOSINOPHILS # (AUTO) 0.1 10^3/uL (0.0-0.7); EOSINOPHILS % (AUTO) 1.6 %; HGB - HEMOGLOBIN 11.3 g/dL (12.0-16.0); MEAN CORPUSCULAR HGB CONC 33.6 g/dL (32.0-36.0); MEAN CORPUSCULAR VOLUME 98.1 fL (81.0-99.0); MEAN PLATELET VOLUME 7.1 fL (7.9-10.8); MONOCYTES # (AUTO) 0.4 10^3/uL (0.0-1.0); MONOCYTES % (AUTO) 9.4 %; NEUTROPHILS # (AUTO) 2.4 10^3/uL (1.5-6.6); NEUTROPHILS % (AUTO) 62.4 %; PLT - PLATELET COUNT 132 10^3/uL (130-450); RED BLOOD COUNT 3.41 10^6/uL (4.20-5.40); RED CELL DISTRIBUTION WIDTH 15.6 % (12.0-15.0); WHITE BLOOD COUNT 3.8 x10^3/uL (4.8-10.8)
[2018-02-09 07:27] LABS: ALBUMIN 3.4 g/dL (3.2-5.5); ALBUMIN/GLOBULIN RATIO 1.2 (1.0-2.2); BILIRUBIN,TOTAL 1.4 mg/dL (0.2-1.0); CREATININE 0.5 mg/dL (0.4-1.0); MAGNESIUM 1.8 mg/dL (1.7-2.8); PHOSPHORUS 2.9 mg/dL (2.5-4.6); TOTAL PROTEIN 6.3 g/dL (6.7-8.2)
[2018-02-09 07:45] LABS: INR 1.2 (0.8-1.2); PT - PROTHROMBIN TIME 13.1 secs (9.9-12.6)
[2018-02-09] MEDS: POLYETHYLENE GLYCOL 3350 17 GM PACKET PO SCH (11:43)
[2018-02-09] MEDS: ENOXAPARIN 40 MG/0.4 ML SYRINGE SUBQ SCH (11:43)
--- NOTE | 2018-02-09 12:03 | MRI Preliminary Report ---
Exam: MRI MRCP W/O IMPRESSION: Probable type III pancreas divisum and with filamentous communication between dorsal and ventral duct s. New mild dilatation of main pancreatic duct compared to prior 12/09/2015 MRCP. New mild common josefina e duct dilatation without evidence for choledocholithiasis. Minimal intrahepatic ductal dilatation. G allbladder is distended. Mild diffuse pancreatic edema may be related to pancreatitis. Consider follo w-up ERCP/EUS to further assess pancreatic head if clinically warranted. Hepatomegaly with marked, diffuse fatty liver infiltration has developed since 12/09/2015. [facility] SITE ID: [id number]
--- NOTE | 2018-02-09 13:05 | MRI Report ---
EXAM: MR ABDOMEN WITHOUT CONTRAST (MR CHOLANGIOPANCREATOGRAPHY) EXAM DATE: 02/09/2018 11:30 AM. CLINICAL HISTORY: Abdominal pain and elevated bilirubin. COMPARISON: Correlation with abdominal CT 02/08/2018 and ultrasound 02/09/2018. MRCP 12/09/2015. TECHNIQUE: Multiplanar breath-hold T1 and T2 sequences obtained through the abdomen on an MR scanner. Dedicated 2D and 3D MRCP sequences obtained through the biliary and pancreatic ducts. No intravenous contrast given. FINDINGS: Lung Bases: The lung bases are clear. Liver: Marked diffuse fatty liver infiltration. Estimated/approximate hepatic fat percentage based on in/out phase series: 42%. Severe steatosis. Enlarged right liver lobe measuring 24 cm craniocaudal. CBD: Common bile duct has increased in diameter from 5 mm to 7 mm since 12/09/2015 MRCP. Common hepa tic duct has increased in diameter from 6 mm to 10 mm. Minimal hepatic biliary ductal dilatation. Gallbladder: Distended gallbladder without evidence for stone. Small amount of right upper quadrant f ree fluid. Pancreas: Probable type III pancreas divisum with filamentous connection between dorsal and ventral ducts. Dilatation of duct within pancreatic head is again noted, measuring 8 mm today, previously 5-6 mm. Main pancreatic duct is mildly dilated today measuring 4-5 mm, previously normal at 2-3 mm. Mild edema adjacent to pancreas. No pseudocyst. Spleen: The spleen appears normal. Kidneys and Adrenals: The kidneys appear normal with no mass or hydronephrosis. Small bilateral renal cysts. The adrenals appear normal. Bowel: The small bowel and colon appear normal with no inflammation or obstruction. Retroperitoneum: The retroperitoneal structures appear normal with no mass or lymphadenopathy. IMPRESSION: 1. Probable type III pancreas divisum with filamentous communication between dorsal and ventral ducts . New mild dilatation of main pancreatic duct compared to prior MRCP. Some increase in focal dilatati on of pancreatic duct within head of pancrease. New mild common bile duct dilatation, without evidenc e for choledocholithiasis. Minimal intrahepatic biliary ductal dilatation. Gallbladder is distended. Mild diffuse peripancreatic edema may be related to pancreatitis. Consider follow-up ERCP/EUS to furt her assess pancreatic head if clinically warranted. 2. Hepatomegaly with marked diffuse fatty liver infiltration is new compared to 12/09/2015 MRCP. [facility] Referring Provider Line: [phone] SITE ID: [id number]
[2018-02-09] MEDS: LORazepam 0.5 MG TABLET PO PRN (13:09)
--- NOTE | 2018-02-09 16:17 | CONSULTATION NOTE ---
Referring Provider Name of Referring Provider:: Sung Consult Date: 02/09/18 Chief Complaint - Chief Complaint Chief Complaint: RUQ abd pain History of Present Illness - Admitted From Admitted From:: ER - History Obtained From Records Reviewed: yes History obtained from: pt Exam Limitations: no - History of Present Illness HPI Comment/Other: 57 yo female admitted with 5 day hx of RUQ pain, N, V. Pain is a dull ache with intermittent colicky exacerbation. Unaffected by meals, position. No fever/ chills. Pt has hx many similar episodes. She has a hx of pancreatic divisum and is s/p ERCP with pancreatic stent placement in [place] approx 15 yrs ago. Neg FH GI tumors. No hx melena, hematochezia. Her last bm was 3-4 days ago. Evaluation since admission yesterday has included CT abd/pelvis showing fatty liver and mild biliary ductal dilatation; abd US showing a nl gallbladder and also biliary ductal dilatation; MRCP showing dilated biliary and pancreatic ducts, pancreatic divisum, mild pancreatitis, nl gallbladder, fatty liver. Since admission she has had no further N/V but her pain persists. Nevertheless she is hungry and would like a regular diet and discharge home if possible. No recent significant wt loss. She denies hx of viral hepatitis or high risk behaviors. She reports minimal alcohol intake. History - Past Medical History Cardiovascular: reports: Coronary artery disease, [place] Respiratory: reports: None Neuro: reports: Migraines, Tremors Endocrine/Autoimmune: reports: None GI: reports: Pancreatitis (Pancreatic divisum with a hx of stent placement.), Other (Fatty liver) SERVICE MANAGER: reports: None : reports: None HEENT: reports: None Psych: reports: Anxiety, ADD/ADHD Musculoskeletal: reports: Osteoarthritis Derm: reports: None MRSA Hx?: No - Past Surgical History General: reports: Other (ERCP with sphincterotomies and pancreatic stent placement ) /SERVICE MANAGER: reports: Breast implants HEENT: reports: Other - Family & Social History Family History: Mother: , CVA/TIA, Father: , Hyperlipidemia, Hypertension, [place], Sister: Alive and Well (Epilepsy), Brother: Alive and Well, Other family: Cancer, Diabetes, Type 2 Living arrangement: At home Living Situation: With spouse/s.o. Social History Notes: Patient lives in [place], [place] with her . She has 2 children one son and one daughter. 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 She continues to smoke 3 cigarettes a day and states that she does drink alcohol but only once a week and she drinks 1 large glass of wine. She denies any illicit drug use. - Substance History Use: Uses substance without health or social issues: Tobacco - POLST Patient has POLST: No POLST Status: Full Code Meds/Allgy - Home Medications Home Medications: Ambulatory Orders Medication Instructions Recorded Confirmed Buprenorphine HCl/Naloxone HCl 1.5 film SL DAILY 11/14/17 02/09/18 [Suboxone 8 mg-2 mg Sl Film] Indomethacin 25 - 50 mg PO TID 02/09/18 02/09/18 hydrOXYzine pamoate [Hydroxyzine 25 mg PO BID 02/09/18 02/09/18 Pamoate] - Allergies Allergies/Adverse Reactions: Allergies Allergy/AdvReac Type Severity Reaction Status Date / Time ketorolac tromethamine * Allergy Severe Hives Verified 11/13/17 19:25 [From Toradol] Review of Systems - Constitutional Constitutional: reports: Poor appetite. denies: Fever, Chills, Weight loss - Gastrointestinal Gastrointestinal: reports: Abdominal pain, Constipation, Nausea, Vomiting, Poor appetite. denies: Diarrhea, Rectal bleeding, Black stools, Bloody stools, Lorenzo blood emesis, Coffee grounds emesis Exam - Vital Signs Reviewed Vital Signs: Yes Vital Signs: Vital Signs x48h Temp Pulse Pulse Resp BP Pulse Ox 02/09/18 15:45 36.8 C 79 18 138/81 H 98 02/09/18 09:40 88 14 - Physical Exam General Appearance: positive: Alert, Mild distress Eyes Bilateral: positive: Normal inspection, PERRL, EOMI, Conjunctivae nml, No scleral icterus ENT: positive: ENT inspection nml, Pharynx nml, No signs of dehydration Neck: positive: No JVD. negative: Lymphadenopathy (R), Lymphadenopathy (L) Respiratory: positive: Chest non-tender, No respiratory distress, Breath sounds nml Cardiovascular: positive: No murmur, No gallop Abdomen: positive: Nml bowel sounds, No distention, Tenderness (RUQ and epigastric tenderness, guarding; no generalized peritoneal signs), Guarding. negative: Rebound, Hepatomegaly, Splenomegaly, Mass Skin: positive: Color nml, No rash, Warm, Dry Extremities: positive: Nml appearance, No pedal edema. negative: Calf tenderness Neurologic/Psychiatric: positive: Oriented x3 Conclusion/Plan - Diagnosis Diagnosis: RUQ pain associated with abn lft's, mild elevation of lipase, dilated biliary and pancreatic ducts on imaging all suggest pancreatic divisum with recurrent stricture at ampulla or other site causing pancreatitis and mild biliary obstruction. Also possible is NAFLD with steatohepatiis, or alcoholic hepatitis, or viral hepatitis. Rec: hepatitis screen, and referral for ERCP. - Lab Results Lab results reviewed: Yes Fish Bones: 02/09/18 06:55 02/09/18 06:55 - Diagnostic Imaging Results Diagnostic Imaging Results: positive: Final report reviewed Labs, EKG, Meds, Allergy - Lab Results Fish Bones: 02/09/18 06:55 02/09/18 06:55 Other Lab Results: Lab Results x24hrs 02/09/18 02/09/18 02/09/18 Range/Units 06:55 06:55 06:55 WBC 3.8 L (4.8-10.8) x10^3/uL RBC 3.41 L (4.20-5.40) 10^6/uL Hgb 11.3 L (12.0-16.0) g/dL Hct 33.5 L (37.0-47.0) % MCV 98.1 (81.0-99.0) fL MCH 33.0 H (27.0-31.0) pg MCHC 33.6 (32.0-36.0) g/dL RDW 15.6 H (12.0-15.0) % Plt Count 132 (130-450) 10^3/uL MPV 7.1 L (7.9-10.8) fL Neut # 2.4 (1.5-6.6) 10^3/uL Lymph # 1.0 L (1.5-3.5) 10^3/uL [place] # 0.4 (0.0-1.0) 10^3/uL Eos # 0.1 (0.0-0.7) 10^3/uL Baso # 0.0 (0.0-0.1) 10^3/uL Absolute Nucleated RBC 0.00 x10^3/uL Nucleated RBC % 0.1 /100WBC PT 13.1 H (9.9-12.6) secs INR 1.2 (0.8-1.2) Sodium 136 (135-145) mmol/L Potassium 3.5 (3.5-5.0) mmol/L Chloride 99 L (101-111) mmol/L Carbon Dioxide 30 (21-32) mmol/L Anion Gap 7.0 (6-13) BUN 6 (6-20) mg/dL Creatinine 0.5 (0.4-1.0) mg/dL Estimated GFR (MDRD) 128 (>89) Glucose 129 H (70-100) mg/dL Calcium 8.0 L (8.5-10.3) mg/dL Phosphorus 2.9 (2.5-4.6) mg/dL Magnesium 1.8 (1.7-2.8) mg/dL Total Bilirubin 1.4 H (0.2-1.0) mg/dL AST 147 H (10-42) IU/L ALT 63 H (10-60) IU/L Alkaline Phosphatase 143 H (42-121) IU/L Total Protein 6.3 L (6.7-8.2) g/dL Albumin 3.4 (3.2-5.5) g/dL Globulin 2.9 (2.1-4.2) g/dL Albumin/Globulin Ratio 1.2 (1.0-2.2) lipase 68 - Other Diagnostic Imaging Results Diagnostic Imaging Results Comments: See HPI for details - Medications Medications: Ambulatory Orders Medication Instructions Recorded Confirmed Buprenorphine HCl/Naloxone HCl 1.5 film SL DAILY 11/14/17 02/09/18 [Suboxone 8 mg-2 mg Sl Film] Indomethacin 25 - 50 mg PO TID 02/09/18 02/09/18 hydrOXYzine pamoate [Hydroxyzine 25 mg PO BID 02/09/18 02/09/18 Pamoate] - Allergy Allergy: Allergies Allergy/AdvReac Type Severity Reaction Status Date / Time ketorolac tromethamine * Allergy Severe Hives Verified 11/13/17 19:25 [From Toradol] Buprenorphine HCl/Naloxone HCl [Suboxone 8 mg-2 mg Sl Film] 1.5 film SL DAILY Indomethacin 25 - 50 mg PO TID 02/09/18 hydrOXYzine pamoate [Hydroxyzine Pamoate] 25 mg PO BID 02/09/18
--- NOTE | 2018-02-09 18:41 | PROVIDER PROGRESS NOTE ---
Subjective - Prog Note Date Prog Note Date: 02/09/18 - Subjective Pt reports feeling: No change Subjective: pt can not tolerate the diet, complain lots of pain. No chest pain and SOB. MRCP is done and recommend for ERCP. Pt is transferred in, and may transfer to other hospital for ERCP Current Medications - Current Medications Current Medications: Active Medications Acetaminophen (Tylenol) 650 mg PO Q4HR PRN PRN Reason: Pain 1 to 4 Albuterol () 2.5 mg INH RTQ4H PRN PRN Reason: Wheezing Enoxaparin Sodium (Lovenox) 40 mg SUBQ DAILY [facility] Last Admin: 02/10/18 09:44 Dose: Not Given Folic Acid () 1 mg PO DAILY [facility] Last Admin: 02/10/18 09:41 Dose: 1 mg Hydroxyzine Pamoate (Vistaril) 25 mg PO BID [facility] Last Admin: 02/10/18 09:40 Dose: 25 mg Multivitamins 10 ml/ Sodium (Chloride) 1,010 mls @ 100 mls/hr IV HS [facility] Last Infusion: 02/10/18 07:39 Dose: Infused Famotidine (Pepcid 20 Mg/50 Ml) 50 mls @ 100 mls/hr IV BID [facility] Last Admin: 02/10/18 09:42 Dose: 100 mls/hr Lorazepam (Ativan Inj (Vial)) 1 mg IVP Q2H PRN PRN Reason: Anxiety Last Admin: 02/10/18 04:02 Dose: 1 mg Lorazepam (Ativan) 0.5 mg PO Q6H PRN PRN Reason: Anxiety Last Admin: 02/10/18 07:48 Dose: 0.5 mg Morphine Sulfate (Morphine) 4 mg IVP Q2H PRN PRN Reason: Pain 8 to 10 Last Admin: 02/10/18 09:55 Dose: 4 mg Multi-Ingredient Mouthwash/Gargle () 30 ml PO Q6HR [facility] Last Admin: 02/10/18 06:23 Dose: 30 ml Nicotine (Nicoderm) 1 patch TOP DAILY [facility] Last Admin: 02/10/18 09:42 Dose: 1 patch Ondansetron HCl (Zofran Inj) 4 mg IVP Q6HR PRN PRN Reason: Nausea / Vomiting Oxycodone HCl (Roxicodone) 5 mg PO Q4HR PRN PRN Reason: Pain 5 to 7 Oxycodone HCl (Roxicodone) 10 mg PO Q4HR PRN PRN Reason: Pain 8 to 10 Last Admin: 02/10/18 07:48 Dose: 10 mg (Buprenorphine Hcl/Naloxone Hcl [ Suboxone 8 Mg-2 Mg Sl Film]) 1.5 each PO DAILY [facility] Polyethylene Glycol (Miralax) 17 gm PO DAILY [facility] Last Admin: 02/10/18 09:44 Dose: Not Given Prochlorperazine Edisylate (Compazine Inj) 10 mg IVP Q6HR PRN PRN Reason: Nausea / Vomiting Promethazine HCl (Phenergan Inj) 25 mg IM Q6HR PRN PRN Reason: Nausea / Vomiting Sodium Chloride (Normal Saline Flush 0.9%) 10 ml IVP PRN PRN PRN Reason: NEEDED PER PROVIDER ORDERS Last Admin: 02/10/18 04:01 Dose: 10 ml Sodium Chloride (Normal Saline Flush 0.9%) 10 ml IVP 0100,0900,1700 [facility] Last Admin: 02/10/18 06:30 Dose: 10 ml Thiamine HCl (Vitamin B-1) 100 mg PO DAILY [facility] Last Admin: 02/10/18 09:40 Dose: 100 mg Zolpidem Tartrate (Ambien) 5 mg PO QPM PRN PRN Reason: Insomnia Buprenorphine HCl/Naloxone HCl [Suboxone 8 mg-2 mg Sl Film] 1.5 film SL DAILY Indomethacin 25 - 50 mg PO TID 02/09/18 hydrOXYzine pamoate [Hydroxyzine Pamoate] 25 mg PO BID 02/09/18 Objective - Vital Signs/Intake & Output Reviewed Vital Signs: Yes Vital Signs: Vital Signs x48h Temp Pulse Resp BP Pulse Ox 02/09/18 15:45 36.8 C 79 18 138/81 H 98 Intake & Output: Intake & Output 02/06/18 02/07/18 02/08/18 02/09/18 23:59 23:59 23:59 23:59 Intake Total 2904.167 Balance 2214.167 - Objective General Appearance: positive: No acute distress, Alert. negative: Lethargic Eyes Bilateral: positive: Normal inspection, PERRL, No lid inflammation, Conjunctivae nml ENT: positive: ENT inspection nml, Pharynx nml, No signs of dehydration. negative: Purulent nasal drainage, Pharyngeal erythema, Oral lesions Neck: positive: Nml inspection, Thyroid nml, No JVD, Trachea midline. negative : Thyromegaly, Lymphadenopathy (R), Lymphadenopathy (L), Stiff neck, Carotid bruit, Swelling/bruising, Tracheal deviation Respiratory: positive: Chest non-tender, No respiratory distress, Breath sounds nml. negative: Wheezes, Rales, Rhonchi Cardiovascular: positive: Regular rate & rhythm, No murmur, No gallop. negative : Irregularly irregular, Extrasystoles, Tachycardia, Bradycardia, Systolic murmur, Diastolic murmur Peripheral Pulses: 2+ Radial (R), 2+ Radial (L), 2+ Dorsalis pedis (R), 2+ Dorsalis pedis (L) Abdomen: positive: Non-tender, No organomegaly, Nml bowel sounds, No distention. negative: Tenderness, Guarding, Rebound Back: positive: Nml inspection. negative: CVA tenderness (R), CVA tenderness (L ) Skin: positive: Color nml, No rash, Warm, Dry. negative: Cyanosis, Diaphoresis , Pallor Extremities: positive: Non-tender, Full ROM, Nml appearance. negative: Calf tenderness, Joint swelling, Brian's sign/cords Neurologic/Psychiatric: positive: Oriented x3, Motor nml, Sensation nml, Mood/ affect nml. negative: Sensory loss, Facial droop, Slurred/abnml speech, Depressed mood/affect - Lab Results Fish Bones: 02/10/18 05:45 02/10/18 05:45 Other Labs: Lab Results x24hrs 02/09/18 02/09/18 02/09/18 Range/Units 06:55 06:55 06:55 WBC 3.8 L (4.8-10.8) x10^3/uL RBC 3.41 L (4.20-5.40) 10^6/uL Hgb 11.3 L (12.0-16.0) g/dL Hct 33.5 L (37.0-47.0) % MCV 98.1 (81.0-99.0) fL MCH 33.0 H (27.0-31.0) pg MCHC 33.6 (32.0-36.0) g/dL RDW 15.6 H (12.0-15.0) % Plt Count 132 (130-450) 10^3/uL MPV 7.1 L (7.9-10.8) fL Neut # 2.4 (1.5-6.6) 10^3/uL Lymph # 1.0 L (1.5-3.5) 10^3/uL [place] # 0.4 (0.0-1.0) 10^3/uL Eos # 0.1 (0.0-0.7) 10^3/uL Baso # 0.0 (0.0-0.1) 10^3/uL Absolute Nucleated RBC 0.00 x10^3/uL Nucleated RBC % 0.1 /100WBC PT 13.1 H (9.9-12.6) secs INR 1.2 (0.8-1.2) Sodium 136 (135-145) mmol/L Potassium 3.5 (3.5-5.0) mmol/L Chloride 99 L (101-111) mmol/L Carbon Dioxide 30 (21-32) mmol/L Anion Gap 7.0 (6-13) BUN 6 (6-20) mg/dL Creatinine 0.5 (0.4-1.0) mg/dL Estimated GFR (MDRD) 128 (>89) Glucose 129 H (70-100) mg/dL Calcium 8.0 L (8.5-10.3) mg/dL Phosphorus 2.9 (2.5-4.6) mg/dL Magnesium 1.8 (1.7-2.8) mg/dL Total Bilirubin 1.4 H (0.2-1.0) mg/dL AST 147 H (10-42) IU/L ALT 63 H (10-60) IU/L Alkaline Phosphatase 143 H (42-121) IU/L Total Protein 6.3 L (6.7-8.2) g/dL Albumin 3.4 (3.2-5.5) g/dL Globulin 2.9 (2.1-4.2) g/dL Albumin/Globulin Ratio 1.2 (1.0-2.2) ABX Reporting Has patient been on IV antibiotics over the past 48 hours?: No Assessment/Plan - Problem List (1) Abdominal pain Impression: Conclusion/Plan: pt request regular diet after she did not have abdominal pain and N/V but pt complain abdominal pain again after she eta regular diet transfer to inpt pt may need ERCP Patient presents with abdominal pain that has been going on for the last week. Patient has had abdominal pain in the past secondary to pancreatitis and most recently due to likely acalculus cholecystitis. Today the patient presents with right upper quadrant abdominal pain her description is very much like cholecystitis or pain due to gallstones. However her CT and abdominal ultrasound show a normal gallbladder. The patient does have some extrahepatic biliary ductal dilation on the ultrasound which is concerning. The patient's abdominal pain is most likely secondary to aggravation of her fatty liver due to alcohol abuse. Could also be secondary to gastritis secondary to alcohol. There could also be some biliary obstruction. At this point patient's pain is intractable and she is unable to keep anything down orally therefore she needs to be hospitalized. Plan: N.p.o. IV fluids MRCP GI cocktail and Pepcid IV pain medication IV antiemetics (2) Fatty liver Conclusion/Plan: The patient presents with right upper quadrant abdominal pain for about 1 week. The patient's liver appears to be enlarged on examination and CT and ultrasound both show a fatty liver. The patient's LFTs are elevated and a 2-1 pattern of AST to ALT and patient does have positive alcohol in her bloodstream. Given this it is likely that the patient has been continuing to drink despite denying it. Patient's drinking is likely led to worsening right upper quadrant abdominal pain from her previously fatty liver. Patient needs to abstain from drinking alcohol and this was explained to the patient she was counseled. In the meantime we will treat the patient with multivitamins, thiamine, folic acid and IV fluid. (3) Hyponatremia Conclusion/Plan: resolved Patient has hyponatremia with a sodium of 132. Patient appears to be hypovolemic with hyponatremia likely secondary to poor oral intake and nausea. Patient will be given IV fluids and will continue to monitor the patient's sodium (4) Hypokalemia Conclusion/Plan: resolved Patient does have hypokalemia with a potassium of 3.4. The patient's potassium will be replaced with IV fluids and will continue to monitor the patient's potassium. Likely patient's potassium is low secondary to nausea and vomiting. (5) H/O ETOH abuse Conclusion/Plan: consult with pt for quitting of alcohol The patient does have a history of alcohol abuse although she denies drinking heavily at this time. The patient does have positive alcohol in her bloodstream although not at a large concentration. The patient also has elevated LFTs with AST ALT 2:1 ratio. This makes me suspicious that she is still drinking more than she lets on. The patient did also state that she was shaky at home and did appear to be tachycardic on presentation. Although the patient does not appear to be an active alcohol withdrawal we will be very cautious and will treat her with Ativan throughout the hospitalization. Patient will also be given IV thiamine, folic acid and multivitamin. We will monitor closely for alcohol withdrawal. The patient was counseled on need to quit drinking (6) LFT elevation Conclusion/Plan: order acute hep panel test The patient does have elevated LFTs with 2-1 ratio of AST and ALT and a mildly elevated bilirubin and alk phos. It appears that the LFT elevation is likely due to alcoholic hepatitis. We will monitor the patient's LFTs and treat as above. (7) Pancreatitis Conclusion/Plan: pt denies N/V, continue to check Lipase, lipase 68 The patient has history of pancreatitis requiring stent placement in the past. Currently the patient does not appear to have pancreatitis as her lipase is only 68. The patient however does continue to have intractable nausea as well as intractable pain. For now the patient will be treated like a pancreatitis with being n.p.o. and symptom management. (8) Opioid dependence Conclusion/Plan: consult with pt for quiting of opioid The patient does have a history of opioid dependence secondary to her history of pancreatitis and long-term use of opioids. The patient is currently on Suboxone to deal with her dependence. The patient states that she did not take Suboxone the last 2 days. The we will need to confirm her dose of Suboxone and give it to her here. The patient will be given IV pain medications in the acute setting of her current condition but we will be careful about how much we will give in for how long we will continue to give it. (9) Anxiety and depression Conclusion/Plan: stable The patient has history of anxiety and depression and appears to be quite anxious on presentation. The patient will be placed on Ativan every 2 hours as needed while she is hospitalized. (10) Tobacco abuse Conclusion/Plan: consult for quitting of cigarette smoking. The patient continues to drink 3-4 cigarettes a day. The patient was counseled on need to quit smoking. The patient will be offered a nicotine patch while she is hospitalized. Qualifiers: Abdominal location: right upper quadrant Qualified Code(s): R10.11 - Right upper quadrant pain
[2018-02-09] MEDS: hydrOXYzine PAMOATE 25 MG CAPSULE PO SCH (20:25)
[2018-02-09] MEDS: NICOTINE 14 MG PATCH TOP SCH (20:25)
[2018-02-10] MEDS: GI COCKTAIL 120 ML BOTTLE PO SCH ×3 (00:18→11:49)
[2018-02-10] MEDS: MORPHINE 2 MG/ML SYRINGE IVP PRN ×5 (00:19→09:55)
[2018-02-10] MEDS: LORazepam 2 MG/ML VIAL IVP PRN ×3 (00:20→04:02)
[2018-02-10] MEDS: SODIUM CHLORIDE FLUSH 0.9% 10 ML SYRINGE IVP SCH ×2 (00:20→06:30)
[2018-02-10] MEDS: SODIUM CHLORIDE FLUSH 0.9% 10 ML SYRINGE IVP PRN ×2 (03:01→04:01)
[2018-02-10 06:26] LABS: BASOPHILS % (AUTO) 0.6 %; EOSINOPHILS # (AUTO) 0.1 10^3/uL (0.0-0.7); EOSINOPHILS % (AUTO) 2.2 %; HGB - HEMOGLOBIN 10.9 g/dL (12.0-16.0); LYMPHOCYTES # (AUTO) 1.3 10^3/uL (1.5-3.5); LYMPHOCYTES % (AUTO) 32.2 %; MEAN CORPUSCULAR HEMOGLOBIN 33.7 pg (27.0-31.0); MEAN CORPUSCULAR HGB CONC 33.9 g/dL (32.0-36.0); MEAN CORPUSCULAR VOLUME 99.5 fL (81.0-99.0); MEAN PLATELET VOLUME 7.9 fL (7.9-10.8); MONOCYTES # (AUTO) 0.4 10^3/uL (0.0-1.0); MONOCYTES % (AUTO) 8.7 %; NEUTROPHILS # (AUTO) 2.3 10^3/uL (1.5-6.6); NEUTROPHILS % (AUTO) 56.3 %; PLT - PLATELET COUNT 131 10^3/uL (130-450); RED BLOOD COUNT 3.23 10^6/uL (4.20-5.40); RED CELL DISTRIBUTION WIDTH 15.8 % (12.0-15.0); WHITE BLOOD COUNT 4.2 x10^3/uL (4.8-10.8)
[2018-02-10 06:44] LABS: ALBUMIN 3.3 g/dL (3.2-5.5); ALBUMIN/GLOBULIN RATIO 1.2 (1.0-2.2); BILIRUBIN,TOTAL 0.9 mg/dL (0.2-1.0); CALCIUM 8.1 mg/dL (8.5-10.3); CREATININE 0.4 mg/dL (0.4-1.0)
[2018-02-10] MEDS: LORazepam 0.5 MG TABLET PO PRN (07:48)
[2018-02-10] MEDS: oxyCODONE 5 MG TABLET PO PRN ×2 (07:48→11:48)
[2018-02-10] MEDS ORDERED: BUPRENORPHINE HCL SL SCH (09:00)
[2018-02-10] MEDS ORDERED: NALOXONE HCL SL SCH (09:00)
[2018-02-10] MEDS ORDERED: [UNRECOGNIZED DRUG - OTHER] SL SCH (09:00)
[2018-02-10] MEDS: THIAMINE 100 MG TABLET PO SCH (09:40)
[2018-02-10] MEDS: hydrOXYzine PAMOATE 25 MG CAPSULE PO SCH (09:40)
[2018-02-10] MEDS: FOLIC ACID 1 MG TABLET PO SCH (09:41)
[2018-02-10] MEDS: FAMOTIDINE 20 MG/50 ML 50 ML IV SCH (09:42)
[2018-02-10] MEDS: NICOTINE 14 MG PATCH TOP SCH (09:42)
[2018-02-10] MEDS: ENOXAPARIN 40 MG/0.4 ML SYRINGE SUBQ SCH (09:44)
[2018-02-10] MEDS: POLYETHYLENE GLYCOL 3350 17 GM PACKET PO SCH (09:44)
--- NOTE | 2018-02-10 10:41 | Discharge Plan ---
Discharge Plan Disposition: Home, Self Care Condition: Poor Diet: Regular Activity Restrictions: Activity as Tolerated Shower Restrictions: No (fall precaution) Weight Bearing: Full Weight Instruction Topics: Abdominal Pain, Pancreatitis, ED Gallstone W Biliary Colic , Lipase Additional Instructions or Follow Up instructions: You may follow up your PCP in one week. You did not have abdominal pain after you have regular diet today. You are advised to have ERCP. You would like to have ERCP as out-pt. You may follow up Dr. Aurelio Rojas in 1-2 weeks. Our pharmacy did not have suboxone. You would like to be discharged to home today. Your Lipase level increased from 68 to 292 today. I explain the risk and possible deterioration of your medical condition. You still request to be discharged today. Should your symptoms return or worsen, you may present ER or call 911 for help. No Smoking: If you smoke, Please STOP! Call for help.
[2018-02-10 11:38] VITALS: BP 143/86
--- NOTE | 2018-02-10 11:38 | DISCHARGE SUMMARY ---
Discharge Summary Discharge Date: 02/10/18 Discharging Provider: ARSHAD Primary Care Provider: flora alves [facility] Condition at Discharge: Poor Discharge Disposition: 01 Home, Self Care Discharge Facility Name: home - DIAGNOSES Admission Diagnoses: (1) Abdominal pain (2) Fatty liver (3) Hyponatremia (4) Hypokalemia (5) H/O ETOH abuse (6) LFT elevation (7) Pancreatitis (8) Opioid dependence (9) Anxiety and depression (10) Tobacco abuse Discharge Diagnoses with Status of Each Condition: (1) Abdominal pain resolved. pt denies abdominal pain. pt tolerate the regular diet. pt refused to be transferred and have ERCP done in another facility. pt is advised she had elevated Lipase level. Pt state "I have something needed to be done, I have to leave today. I can do it as out-pt when I am ready" Pt had US, CT and MRCP of abdomen. ERCP is recommended but pt refused to be transferred to another hospital for ERCP. Dr. Aurelio Rojas was reported this condition, pt refused to have referral ERCP for another facility, agree pt may do ERCP as out-pt (2) Fatty liver chronic, stable. (3) Hyponatremia resolved (4) Hypokalemia resolved (5) H/O ETOH abuse pt state she did not drink much but drink daily. pt is advised to quit alcohol drinking completely for her medical condition. pt state she will. (6) LFT elevation chronic condition from last years. acute Hepatitis was done and pending. (7) Pancreatitis pt had elevated Lipase from 68 to 292. pt denies abdominal pain, she tolerated the regular food, no nausea or vomiting. (8) Opioid dependence advise pt quit opioid dependence (9) Anxiety and depression stable (10) Tobacco abuse advise pt quit - HPI History of Present Illness: refer from Dr. Aguilar's HPI for pt as the following: Patient is a 57-year-old female with a past medical history significant for anxiety, migraines, osteoarthritis, alcohol abuse, opioid dependence on suboxone , fatty liver and pancreatitis with history of ductal stenosis treated with ERCP , sphincterotomy and stent placement with removal of stents 2 weeks later who presented to the emergency department with a chief complaint of abdominal pain. The patient was recently hospitalized at [facility] about 2 months ago at which time she was found to have acalculus cholecystitis but was discharged without getting a cholecystectomy as her symptoms and numbers seem to improve. Today the patient presents with 1 week of right upper quadrant abdominal pain. The patient states that over the last week she has been experiencing right upper quadrant abdominal pain and feels as though her abdomen is hard as a rock. She states the pain is dull and constant but she will intermittently have attacks where the pain will become severe and be 10 out of 10. She states the pain comes in waves and is unrelated to her eating. The patient states that over the last 4-5 days she has been unable to eat anything as she has been extremely nauseated and had severe abdominal pain. She states that when she did try to eat chicken broth the other day she vomited right back up. She also states that she is constipated. She states that she is not a heavy drinker and only took a sip of alcohol earlier today but otherwise is not drinking on a daily basis. She states that she stopped taking her Suboxone yesterday as she felt that that was just blocking any pain medication she was taking. She also states that she has been experiencing symptoms of congestion and mucus production every morning. She states that when she wakes up in the morning she feels her eyes are watery and she is congested in her throat she states that she coughs for several minutes and feels short of breath but after about 2-3 hours she states that she does feel much better. She states that today she felt like she was dying she states that she had to lay on her bed and is unable to eat or drink. She states her hands were tingling bilaterally and she states that she just felt like she was going to from her abdominal pain and everything that was going on. Patient denies any headaches, blurred vision, sore throat, difficulty swallowing , palpitations, chest pain, fevers, orthopnea, PND, increased lower extremity swelling, diarrhea, urinary urgency, urinary frequency, dysuria, joint pain, joint swelling, back pain, neck stiffness, recent unintentional weight loss, hair loss, skin rashes, night sweats or any focal neurologic deficits. On presentation to the emergency department the patient was afebrile she was slightly tachycardic and hypertensive but was not in any respiratory distress. The patient was complaining of significant abdominal pain and required several doses of IV pain medication in the emergency department with 3 doses of IV morphine and also required 1 dose of IV Ativan as she appeared to be anxious. The patient's lab work revealed a sodium of 132, potassium of 3.4, bilirubin of 1.5, AST of 192, ALT of 82, alk phos of 184, lipase of 68 and a normal CBC. The patient's U tox was positive for opioids and blood alcohol level was 28. The patient underwent a chest x-ray in the emergency department which revealed no acute cardiopulmonary abnormality, she also underwent a CT of her abdomen and pelvis in the emergency department which revealed a distended gallbladder without visible stones or dilated ducts and a fatty liver. The patient then underwent an ultrasound of her abdomen which showed a normal-appearing gallbladder with questionable extrahepatic bile duct dilation and a fatty liver. Due to the patient being unable to tolerate any oral medication and having intractable abdominal pain the patient was placed in observation for symptom management and further workup. - CONSULTS | PROCEDURES Consultations: Dr. Aurelio Rojas Procedures: no procedure. - ALLERGIES Allergies/Adverse Reactions: Allergies Allergy/AdvReac Type Severity Reaction Status Date / Time ketorolac tromethamine * Allergy Severe Hives Verified 11/13/17 19:25 [From Toradol] - MEDICATIONS Home Medications: Ambulatory Orders Medication Instructions Recorded Confirmed Buprenorphine HCl/Naloxone HCl 1.5 film SL DAILY 11/14/17 02/09/18 [Suboxone 8 mg-2 mg Sl Film] Indomethacin 25 - 50 mg PO TID 02/09/18 02/09/18 hydrOXYzine pamoate [Hydroxyzine 25 mg PO BID 02/09/18 02/09/18 Pamoate] - PHYSICAL EXAM AT DISCHARGE General Appearance: positive: No acute distress, Alert. negative: Lethargic Eyes Bilateral: positive: Normal inspection, PERRL, No lid inflammation, Conjunctivae nml ENT: positive: ENT inspection nml, Pharynx nml, No signs of dehydration. negative: Purulent nasal drainage, Pharyngeal erythema, Oral lesions Neck: positive: Nml inspection, Thyroid nml, No JVD, Trachea midline. negative : Thyromegaly, Lymphadenopathy (R), Lymphadenopathy (L), Stiff neck, Carotid bruit, Swelling/bruising, Tracheal deviation Respiratory: positive: Chest non-tender, No respiratory distress, Breath sounds nml. negative: Wheezes, Rales, Rhonchi Cardiovascular: positive: Regular rate & rhythm, No murmur, No gallop. negative : Irregularly irregular, Extrasystoles, Tachycardia, Bradycardia, Systolic murmur, Diastolic murmur Peripheral Pulses: positive: 2+ Abdomen: positive: Non-tender, No organomegaly, Nml bowel sounds, No distention. negative: Tenderness, Guarding, Rebound Back: positive: Nml inspection. negative: CVA tenderness (R), CVA tenderness (L ) Skin: positive: Color nml, No rash, Warm, Dry. negative: Cyanosis, Diaphoresis , Pallor Extremities: positive: Non-tender, Full ROM, Nml appearance. negative: Calf tenderness, Joint swelling, Brian's sign/cords Neurologic/Psychiatric: positive: Oriented x3, Motor nml, Sensation nml, Mood/ affect nml. negative: Weakness, Sensory loss, Facial droop, Slurred/abnml speech, Depressed mood/affect - LABS Result Diagrams: 02/10/18 05:45 02/10/18 05:45 - FOLLOW UP Follow Up: You may follow up your PCP in one week. You did not have abdominal pain after you have regular diet today. You are advised to have ERCP. You would like to have ERCP as out-pt. You may follow up Dr. Aurelio Rojas in 1-2 weeks. Our pharmacy did not have suboxone. You would like to be discharged to home today. Your Lipase level increased from 68 to 292 today. I explain the risk and possible deterioration of your medical condition. You still request to be discharged today. Should your symptoms return or worsen, you may present ER or call 911 for help. - TIME SPENT Time Spent in Discharge (Minutes): 60
[2018-02-11 16:12] LABS: HEPATITIS A IGM NON-REACTIVE (NON-REACTIVE); HEPATITIS B CORE ANTIBODY IGM NON-REACTIVE (NON-REACTIVE); HEPATITIS B SURFACE ANTIGEN NON-REACTIVE (NON-REACTIVE); HEPATITIS C ANTIBODY NON-REACTIVE (NON-REACTIVE)
== END 2018-02-10 12:20 | disposition home or self-care (01) | DRG 441 ==
LOC: ED 19:05 → OBS 23:08 → OBSVTOIN 02-09 17:31 → MS2 02-09 19:47
PROVIDERS: ADMIT Internal Medicine; ATTEND Nurse Practitioner Gerontology
DX: K70.0 Alcoholic fatty liver (principal); K83.1 Obstruction of bile duct; K86.1 Other chronic pancreatitis; Q45.3 Other congenital malformations of pancreas and pancreatic duct; E87.1 Hypo-osmolality and hyponatremia; F11.20 Opioid dependence, uncomplicated; F10.188 Alcohol abuse with other alcohol-induced disorder; K70.10 Alcoholic hepatitis without ascites; Y90.1 Blood alcohol level of 20-39 mg/100 ml; E87.6 Hypokalemia; F32.9 Major depressive disorder, single episode, unspecified; F41.9 Anxiety disorder, unspecified; F17.210 Nicotine dependence, cigarettes, uncomplicated; F90.9 Attention-deficit hyperactivity disorder, unspecified type; M19.90 Unspecified osteoarthritis, unspecified site; G43.909 Migraine, unspecified, not intractable, without status migrainosus; Z79.899 Other long term (current) drug therapy
CPT/HCPCS: 36415; 71046; 74177; 74181; 76700; 80053; 80074; 80306; 80320; 83690; 83735; 84100; 84484; 85025; 85610; 93005; 96361; 96365; 96366; 96367; 96368; 96375; 96376; 99284

== ENCOUNTER 2018-05-30 10:04 | Observation (INO) | payer MEDICAID ==
--- NOTE | 2018-05-30 11:10 | XRAY Report ---
Reason: soa Procedure Date: 05/30/2018 Accession Number: [id number] / [id number] Procedure: XR - Chest 2 View X-Ray CPT Code: 72580 FULL RESULT: EXAM: CHEST RADIOGRAPHY EXAM DATE: 05/30/2018 10:45 AM. CLINICAL HISTORY: Short of air. COMPARISON: Chest 2 view 02/08/2018 8:33 PM. TECHNIQUE: 2 views. FINDINGS: Lungs/Pleura: No focal opacities evident. No pleural effusion. No pneumothorax. Normal volumes. Mediastinum: Heart and mediastinal contours are unremarkable. Other: None. IMPRESSION: No acute cardiopulmonary abnormality. RADIA
[2018-05-30 11:17] LABS: BASOPHILS % (AUTO) 0.6 %; EOSINOPHILS # (AUTO) 0.1 10^3/uL (0.0-0.7); EOSINOPHILS % (AUTO) 1.8 %; HGB - HEMOGLOBIN 13.6 g/dL (12.0-16.0); LYMPHOCYTES # (AUTO) 0.8 10^3/uL (1.5-3.5); LYMPHOCYTES % (AUTO) 17.6 %; MEAN CORPUSCULAR HEMOGLOBIN 35.5 pg (27.0-31.0); MEAN CORPUSCULAR HGB CONC 34.6 g/dL (32.0-36.0); MEAN CORPUSCULAR VOLUME 102.8 fL (81.0-99.0); MEAN PLATELET VOLUME 7.5 fL (7.9-10.8); MONOCYTES # (AUTO) 0.4 10^3/uL (0.0-1.0); MONOCYTES % (AUTO) 8.5 %; NEUTROPHILS # (AUTO) 3.3 10^3/uL (1.5-6.6); NEUTROPHILS % (AUTO) 71.5 %; PLT - PLATELET COUNT 179 10^3/uL (130-450); RED BLOOD COUNT 3.83 10^6/uL (4.20-5.40); RED CELL DISTRIBUTION WIDTH 13.9 % (12.0-15.0); WHITE BLOOD COUNT 4.6 x10^3/uL (4.8-10.8)
[2018-05-30 11:25] LABS: INR 1.3 (0.8-1.2); PT - PROTHROMBIN TIME 14.3 secs (9.9-12.6)
[2018-05-30 11:28] LABS: ALBUMIN 3.7 g/dL (3.2-5.5); ALBUMIN/GLOBULIN RATIO 1.3 (1.0-2.2); BILIRUBIN,TOTAL 1.2 mg/dL (0.2-1.0); CALCIUM 8.8 mg/dL (8.5-10.3); CREATININE 0.5 mg/dL (0.4-1.0); TOTAL PROTEIN 6.6 g/dL (6.7-8.2)
--- NOTE | 2018-05-30 12:17 | ED Physician Documentation ---
History of Present Illness - Stated complaint Stated Complaint: SOA/ABD PRESSURE - Chief complaint Chief Complaint: Abd Pain - Additonal information Additional information: 58-year-old female presents the emergency department with worsening abdominal pain over the past several months. The patient reports increased abdominal distention. The patient is scheduled to see GI tomorrow for reports increased pain over the past 2 days. The patient reports that the abdominal distention is causing her to feel short of breath. The patient reports URI symptoms, chest pain or dyspnea on exertion. The patient denies any focal area of abdominal pain. The patient denies fevers, chills, dysuria or vaginal discharge. The patient does have a history of alcohol abuse but reports no alcohol for the past 7 days. No triggering factors. No relieving factors. Symptoms are described as moderate. Review of Systems Constitutional: denies: Fever, Chills Eyes: denies: Discharge Ears: denies: Ear pain Nose: denies: Congestion Throat: denies: Sore throat Cardiac: denies: Chest pain / pressure Respiratory: reports: Dyspnea. denies: Cough, Hemoptysis, Wheezing GI: reports: Abdominal Pain : denies: Dysuria Skin: denies: Rash Musculoskeletal: denies: Back pain Neurologic: denies: Generalized weakness PD PAST MEDICAL HISTORY - Past Medical History Past Medical History: Yes Cardiovascular: Coronary artery disease, [place] Respiratory: None Neuro: Migraines, Tremors Endocrine/Autoimmune: None GI: Pancreatitis, Cholelithiasis, Other SELF PAY SPECIALIST: None : None HEENT: None Psych: Anxiety, ADD/ADHD Musculoskeletal: Osteoarthritis Derm: None - Past Surgical History Past Surgical History: Yes General: Other /SELF PAY SPECIALIST: Tubal ligation, Breast implants HEENT: Other - Present Medications Home Medications: Ambulatory Orders Medication Instructions Recorded Confirmed Buprenorphine HCl/Naloxone HCl 1.5 film SL DAILY 11/14/17 02/09/18 [Suboxone 8 mg-2 mg Sl Film] Indomethacin 25 - 50 mg PO TID 02/09/18 02/09/18 hydrOXYzine pamoate [Hydroxyzine 25 mg PO PRN PRN 02/09/18 02/09/18 Pamoate] - Allergies Allergies/Adverse Reactions: Allergies Allergy/AdvReac Type Severity Reaction Status Date / Time ketorolac tromethamine * Allergy Severe Hives Verified 05/30/18 10:26 [From Toradol] - Social History Does the pt smoke?: Yes Smoking Status: Current every day smoker Does the pt drink ETOH?: Yes Does the pt have substance abuse?: No - Immunizations Immunizations are current?: Yes Immunizations: TDAP current <10years - POLST Patient has POLST: No POLST Status: Full Code PD ED PE NORMAL - General General: Alert and oriented X 3, No acute distress, Other (Upon entering room the patient appears to be in no acute distress and is eating Lays potato chips) - HEENT HEENT: Atraumatic - Neck Neck: Supple, no meningeal sign - Cardiac Cardiac: RRR, Strong equal pulses - Respiratory Respiratory: No respiratory distress - Abdomen Abdomen: Soft, Non tender. No: Non distended - Derm Derm: Normal color - Extremities Extremities: No deformity, No edema - Neuro Neuro: Alert and oriented X 3, Normal speech - Psych Psych: Normal mood Results - Vitals Vitals: Vital Signs - 24 hr 05/30/18 05/30/18 10:23 13:57 Temperature 98.7 C H Heart Rate 79 73 Respiratory 22 19 Rate Blood Pressure 136/92 H 129/85 H O2 Saturation 99 97 Oxygen O2 Source Room air - Labs Labs: Laboratory Tests 05/30/18 05/30/18 05/30/18 11:05 11:05 11:05 WBC 4.6 L RBC 3.83 L Hgb 13.6 Hct 39.4 MCV 102.8 H MCH 35.5 H MCHC 34.6 RDW 13.9 Plt Count 179 MPV 7.5 L Neut # (Auto) 3.3 Lymph # (Auto) 0.8 L [place] # (Auto) 0.4 Eos # (Auto) 0.1 Baso # (Auto) 0.0 Absolute Nucleated RBC 0.00 Nucleated RBC % 0.0 PT INR Sodium 137 Potassium 3.7 Chloride 100 L Carbon Dioxide 28 Anion Gap 9.0 BUN 8 Creatinine 0.5 Estimated GFR (MDRD) 127 Glucose 126 H Calcium 8.8 Total Bilirubin 1.2 H AST 114 H ALT 38 Alkaline Phosphatase 101 Troponin I < 0.04 B-Natriuretic Peptide Total Protein 6.6 L Albumin 3.7 Globulin 2.9 Albumin/Globulin Ratio 1.3 Lipase 50 05/30/18 05/30/18 11:05 11:05 WBC RBC Hgb Hct MCV MCH MCHC RDW Plt Count MPV Neut # (Auto) Lymph # (Auto) Laurel # (Auto) Eos # (Auto) Baso # (Auto) Absolute Nucleated RBC Nucleated RBC % PT 14.3 H INR 1.3 H Sodium Potassium Chloride Carbon Dioxide Anion Gap BUN Creatinine Estimated GFR (MDRD) Glucose Calcium Total Bilirubin AST ALT Alkaline Phosphatase Troponin I B-Natriuretic Peptide 142 H Total Protein Albumin Globulin Albumin/Globulin Ratio Lipase - Rads (name of study) CT abd/pelvis Radiology: Final report received (1. Interval development of moderate four- quadrant ascites. 2. Hepatomegaly with recanalized umbilical vein.3. Chronic pancreatic ductal dilatation with pancreatic divisum. 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 There is no clinical evidence to suggest spontaneous bacterial peritonitis at this point. The patient will require admission for a ultrasound-guided paracentesis by interventional radiology in the morning for therapeutic and further workup. The findings and plan were discussed with the patient understands and agrees. The case was discussed with the hospitalist Dr. Altamirano who accepts the patient onto her service - Sepsis Event Vital Signs: Vital Signs - 24 hr 05/30/18 05/30/18 10:23 13:57 Temperature 98.7 C H Heart Rate 79 73 Respiratory 22 19 Rate Blood Pressure 136/92 H 129/85 H O2 Saturation 99 97 Oxygen O2 Source Room air Departure - Departure Disposition: ED Place in Observation Clinical Impression: Abdominal pain Qualifiers: Abdominal location: generalized Qualified Code(s): R10.84 - Generalized abdominal pain Ascites Qualifiers: Ascites type: other type Qualified Code(s): R18.8 - Other ascites Condition: Fair
[2018-05-30] MEDS ORDERED: IOPAMIDOL-300 100 ML VIAL ONE (12:18)
[2018-05-30] MEDS ORDERED: IOPAMIDOL-300 100 ML VIAL IVP ONE (13:11)
--- NOTE | 2018-05-30 13:55 | CT Report ---
Reason: increasing abdominal pain Procedure Date: 05/30/2018 Accession Number: [id number] / [id number] Procedure: CT - Abdomen/Pelvis W/ CPT Code: FULL RESULT: EXAM: CT ABDOMEN AND PELVIS EXAM DATE: 05/30/2018 01:15 PM. CLINICAL HISTORY: Increasing abdominal pain. COMPARISONS: None. TECHNIQUE: Routine helical CT imaging was performed through the abdomen and pelvis. IV contrast: CE. Enteric contrast: No. Reconstructions: Coronal and sagittal. In accordance with CT protocol optimization, one or more of the following dose reduction techniques were utilized for this exam: automated exposure control, adjustment of mA and/or KV based on patient size, or use of iterative reconstructive technique. FINDINGS: Lung Bases: Unremarkable. Liver: Enlarged, fatty infiltrated, 22 cm. Recanalized umbilical vein. Portal vein patent. Gallbladder/Bile Ducts: Unremarkable. Spleen: Normal. Pancreas: Pancreatic ductal dilatation 7 mm with known pancreas divisum stable Adrenal Glands: Normal. Kidneys: Both kidneys have subcentimeter densities too small to characterize Peritoneal Cavity/Bowel: Interval development of moderate four-quadrant ascites. GI tract unremarkable. Pelvic Organs: Bladder are unremarkable. Small fibroid uterus. Vasculature: No aneurysms or other significant abnormality. Bones: Chronic L2 compression Other: None. IMPRESSION: 1. Interval development of moderate four-quadrant ascites. 2. Hepatomegaly with recanalized umbilical vein. 3. Chronic pancreatic ductal dilatation with pancreatic divisum. RADIA
[2018-05-30] MEDS ORDERED: fentaNYL 100 MCG/2 ML VIAL IVP STA ×2 (14:20→16:54)
[2018-05-30] MEDS ORDERED: SODIUM CHLORIDE FLUSH 0.9% 10 ML SYRINGE IVP PRN (16:58)
--- NOTE | 2018-05-30 17:00 | HISTORY & PHYSICAL EXAMINATION ---
Chief Complaint - Chief Complaint Chief Complaint: abdominal swelling History of Present Illness - Admitted From Admitted From:: ED - History Obtained From Records Reviewed: yes History obtained from: chart review, patient Exam Limitations: none - History of Present Illness HPI Comment/Other: Lee Ann Jones is a 58-year old female with a past medical history of alcohol dependence, tobacco dependence, opioid dependence, anxiety, clausterphobia, osteoarthritis, depression, PTSD, ADD, CAD, [place], migraines, tremors, pancreatitis, and cholelithiasis. The patient came to the ED with a primary complaint of shortness of breath and increased abdominal girth. The patient states that over the past month, she has noticed more swelling in her abdomen accompanied with a cough, shortness of breath, loss of appetite, dark urine and decreased activity tolerance. Upon exam the patient appeared short of breath, uncomfortable, and anxious about her upcoming paracentesis. Labs showed a low WBC count of 4.6, an elevated MCV of 102.8, a normal platelet count of 179, a low chloride of 100, an elevated glucose of 126, an elevated bilirubin of 1.2, an elevated AST of 114, and a negative troponin. Her PT/PTT was 1.3/14.3 and a BNP of 142. Labs showed hypertension with a B/P of 136/92, normal heart rate of 79, and she was afebrile. We will admit her to observation for a planned paracentesis in the AM, pain control and re-check labs. History - Past Medical History Cardiovascular: reports: Coronary artery disease, [place], Murmur Respiratory: reports: COPD, Shortness of breath Neuro: reports: Headaches, Migraines, Tremors Endocrine/Autoimmune: reports: None GI: reports: GERD, Pancreatitis, Cirrhosis, Cholelithiasis, Other PLASTER WHITTLER: reports: None : reports: Nocturia HEENT: reports: Chronic sinusitis Psych: reports: Depression, Anxiety, ADD/ADHD, Post traumatic stress disorder Musculoskeletal: reports: Osteoarthritis, Chronic back pain Derm: reports: None MRSA Hx?: No - Past Surgical History General: reports: Other /PLASTER WHITTLER: reports: Tubal ligation, Breast implants HEENT: reports: Other - Family & Social History Family History: Mother: , CVA/TIA, Father: , Hyperlipidemia, Hypertension, [place], Sister: Alive and Well (Epilepsy), Brother: Alive and Well, Other family: Cancer, Diabetes, Type 2 Living arrangement: At home Living Situation: With spouse/s.o. Social History Notes: Patient lives in [place], [place] with her . She has 2 children one son and one daughter. 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 She continues to smoke 3 cigarettes a day and states that she does drink alcohol but only once a week and she drinks 1 large glass of wine. She denies any illicit drug use. - Substance History Use: Uses substance without health or social issues: NONE Abuse: Recurrent use of substance despite neg consequences: Alcohol Abuse Issues: Anxiety Disorder Dependence: Experiences withdrawal or developed tolerances: Tobacco Dependence Issues: Anxiety Disorder Tobacco Details: Cigarettes - POLST Patient has POLST: No POLST Status: Full Code Meds/Allgy - Home Medications Home Medications: Ambulatory Orders Medication Instructions Recorded Confirmed Buprenorphine HCl/Naloxone HCl 1.75 film SL DAILY 11/14/17 05/30/18 [Suboxone 8 mg-2 mg Sl Film] hydrOXYzine pamoate [Hydroxyzine 25 mg PO Q8H PRN 02/09/18 05/30/18 Pamoate] - Allergies Allergies/Adverse Reactions: Allergies Allergy/AdvReac Type Severity Reaction Status Date / Time ketorolac tromethamine * Allergy Severe Hives Verified 05/30/18 10:26 [From Toradol] Review of Systems - Constitutional Constitutional: reports: Fatigue, Weakness, Poor appetite, Weight loss - Eyes Eyes: reports: Corrective lenses - Ears, Nose & Throat Ears, Nose & Throat: reports: Postnasal drainage - Cardiovascular Cariovascular: reports: Edema, Lightheadedness, Decr. exercise tolerance, Orthopnea - Respiratory Respiratory: reports: Cough, Orthopnea, SOB with exertion - Gastrointestinal Gastrointestinal: reports: Abdominal pain, Abdominal distention, Nausea, Reflux/heartburn, Poor appetite - Genitourinary Genitourinary: reports: Dysuria, Frequency, Nocturia - Musculoskeletal Musculoskeletal: reports: Back pain, Muscle weakness - Integumentary Integumentary: reports: Dryness - Neurological Neurological: reports: General weakness, Headache, Memory problems, Pre-existing deficit - Psychiatric Psychiatric: reports: Depression, Anxiety - All Other Systems All Other Systems: reports: Reviewed and negative Exam - Vital Signs Reviewed Vital Signs: Yes Vital Signs: Vital Signs x48h Temp Pulse Resp BP Pulse Ox 05/30/18 13:57 73 19 129/85 H 97 05/30/18 10:23 98.7 C H 79 22 136/92 H 99 - Physical Exam General Appearance: positive: Alert, Moderate distress, Anxious Eyes Bilateral: positive: No lid inflammation ENT: positive: No signs of dehydration Neck: positive: Thyroid nml, No JVD, Stiff neck Respiratory: positive: Chest non-tender, No respiratory distress, Breath sounds nml Cardiovascular: positive: Regular rate & rhythm, Systolic murmur Peripheral Pulses: positive: 2+ Abdomen: positive: Tenderness, Guarding, Hepatomegaly, Abnml bowel sounds Back: positive: Nml inspection Skin: positive: No rash, Warm, Dry, Other (mild jaundice) Extremities: positive: Non-tender, Full ROM, Nml appearance, No pedal edema Neurologic/Psychiatric: positive: Oriented x3, CN's nml (2-12), Motor nml, S ensation nml, Depressed mood/affect Reflexes: Bicep (R): 3+, Bicep (L): 3+ Conclusion/Plan - Problem List (1) Ascites Conclusion/Plan: The patient has a known history of this and states that she just wants to get this taken care of as she will be in her daughter's wedding in the near future and wants to fit into her gown. Plans for the patient to undergo an IR guided paracentesis in the AM. She likely has ascites as a consequence to her alcohol abuse. She states that she does not currently use alcohol and continues to work as a financial supervisor at the [employer]. Plan: Stay in observation for a paracentesis. Qualifiers: Ascites type: other type Qualified Code(s): R18.8 - Other ascites (2) Abdominal pain Conclusion/Plan: Upon exam the patient has tenderness in all 4 quadrants of her abdomen. She as a small stature, so her ascities is very pronounced with the appearance of being . She also complains of back pain as a consequence of her increased abdominal girth. She states that in the ED she was given Fentanyl, which worked for her. Plan: Continue to treat her pain, avoid tylenol as she has liver disease. Qualifiers: Abdominal location: generalized Qualified Code(s): R10.84 - Generalized abdominal pain (3) Anxiety and depression Conclusion/Plan: The patient has several addictions in her life including opioids, tobacco, and alcohol. She is consequently a very anxious person. She is not prescribed any antidepressants for this and does not see a regular therapist. She denies suicidal ideation, and is looking forward to her daughter's wedding. Plan: Continue to monitor for alterations in mood. (4) H/O ETOH abuse Conclusion/Plan: The patient states that she began use in her teens, and doesn't believe that she was ever a true "alcoholic", and her drink of choice was wine. She states that she quit some time last fall. Plan: Continue to encourage cessation. (5) Nicotine dependence Conclusion/Plan: The patient states that with her recent shortness of breath, she has cut back on her cigarette use. Plan: Continue to encourage cessation and offer a patch upon discharge. Qualifiers: Nicotine product type: cigarettes - Lab Results Lab results reviewed: Yes Ricci Bones: 05/31/18 06:23 05/31/18 06:23 Core Measures - Anticipated LOS I expect patient to be DC'd or transferred within 96 hours.: Yes - DVT/VTE - Prophylaxis VTE/DVT Device ordered at admit?: Yes VTE/DVT Prophylaxis med ordered at admit?: No Not Ordered - Medical Reason: Contraindicated - Stroke - Rehab Assessment Rehab services assessment to be ordered?: No Not Ordered - Medical Reason: Contraindicated - AMI - Statin at Admit Aspirin Prescribed on Admit: No Not Ordered - Medical Reason: Contraindicated
[2018-05-30] MEDS ORDERED: hydrOXYzine PAMOATE 25 MG CAPSULE PO PRN (19:53)
[2018-05-30] MEDS ORDERED: ONDANSETRON 4 MG/2 ML VIAL IVP PRN (19:54)
[2018-05-30] MEDS: fentaNYL 100 MCG/2 ML VIAL IVP PRN ×2 (20:18→22:51)
[2018-05-30] MEDS: SODIUM CHLORIDE FLUSH 0.9% 10 ML SYRINGE IVP SCH ×2 (20:19→22:51)
[2018-05-31] MEDS: SODIUM CHLORIDE FLUSH 0.9% 10 ML SYRINGE IVP SCH ×3 (01:21→16:44)
[2018-05-31] MEDS: fentaNYL 100 MCG/2 ML VIAL IVP PRN ×5 (06:39→16:49)
[2018-05-31 06:47] LABS: BASOPHILS % (AUTO) 0.7 %; EOSINOPHILS # (AUTO) 0.2 10^3/uL (0.0-0.7); EOSINOPHILS % (AUTO) 4.4 %; HGB - HEMOGLOBIN 12.8 g/dL (12.0-16.0); LYMPHOCYTES # (AUTO) 1.2 10^3/uL (1.5-3.5); LYMPHOCYTES % (AUTO) 28.5 %; MEAN CORPUSCULAR HEMOGLOBIN 35.5 pg (27.0-31.0); MEAN CORPUSCULAR VOLUME 104.5 fL (81.0-99.0); MEAN PLATELET VOLUME 7.9 fL (7.9-10.8); MONOCYTES # (AUTO) 0.4 10^3/uL (0.0-1.0); MONOCYTES % (AUTO) 9.1 %; NEUTROPHILS # (AUTO) 2.4 10^3/uL (1.5-6.6); NEUTROPHILS % (AUTO) 57.3 %; PLT - PLATELET COUNT 163 10^3/uL (130-450); RED CELL DISTRIBUTION WIDTH 14.4 % (12.0-15.0); WHITE BLOOD COUNT 4.2 x10^3/uL (4.8-10.8)
[2018-05-31 07:00] LABS: ALBUMIN 3.1 g/dL (3.2-5.5); ALBUMIN/GLOBULIN RATIO 1.2 (1.0-2.2); CALCIUM 8.4 mg/dL (8.5-10.3); CREATININE 0.4 mg/dL (0.4-1.0); TOTAL PROTEIN 5.6 g/dL (6.7-8.2)
[2018-05-31] MEDS ORDERED: POLYETHYLENE GLYCOL 3350 17 GM PACKET PO SCH (09:00)
[2018-05-31] MEDS ORDERED: BUFFERED LIDOCAINE 10 ML SYRINGE ID ONE (11:30)
[2018-05-31 13:17] LABS: CC,BF RBC 439 /mm^3
[2018-05-31 13:19] LABS: BF SOURCE PERITONEAL
[2018-05-31 13:20] LABS: BF COLOR YELLOW
--- NOTE | 2018-05-31 13:56 | Ultrasound Report ---
Reason: ascities Procedure Date: 05/31/2018 Accession Number: [id number] / [id number] Procedure: US - Abdominal Paracentesis CPT Code: FULL RESULT: EXAM: ULTRASOUND-GUIDED PARACENTESIS EXAM DATE: 05/31/2018 12:56 PM. CLINICAL HISTORY: Ascites. COMPARISON: ABDOMEN/PELVIS W/ 05/30/2018 12:57 PM. TECHNIQUE: Risks, benefits, and alternatives to the procedure were discussed with the patient. All questions answered. Written and verbal consent obtained. Patient was placed in the supine position and the skin overlying the ascites marked with sonographic guidance. The skin was sterilely prepped and draped, and 1% buffered lidocaine was used for local anesthesia. An 17-gauge safety centesis was advanced into the peritoneal ascites and fluid aspirated. Upon completion, the catheter was removed. FINDINGS: A total of 3300 mL of fluid was removed without immediate complication. Patient tolerated procedure well. IMPRESSION: Ultrasound-guided paracentesis without immediate complications. RADIA
[2018-05-31 14:08] LABS: LYMPHOCYTES %,BODY FLUID 31; MACROPHAGES %,BODY FLUID 49 %; MESOTHELIAL %, BF 7 %; MONOCYTES %,BODY FLUID 7 %
[2018-05-31] MEDS ORDERED: SPIRONOLACTONE 25 MG TABLET PO SCH (16:35)
[2018-05-31] MEDS ORDERED: BUFFERED LIDOCAINE 10 ML SYRINGE IU ONE (17:03)
[2018-05-31 17:12] VITALS: BP 124/77
--- NOTE | 2018-05-31 17:17 | Discharge Plan ---
Discharge Plan Disposition: 01 Home, Self Care Condition: Good Prescriptions: Spironolactone [Aldactone] 25 mg PO DAILY #30 tablet Diet: Regular Activity Restrictions: Activity as Tolerated Shower Restrictions: No Driving Restrictions: No Weight Bearing: Full Weight Additional Instructions or Follow Up instructions: You were in observation overnight for pain control as you waited for your paracentesis. You should be referred to a occupational therapy professor (a liver specialist) by your PCP. To help slow future swelling, you were started on a medication called Spironolactone, which should be increased in dose at a later date. Please take this everyday. Please do not use alcohol and see your PCP within one week. No Smoking: If you smoke, Please STOP! Call for help. Follow-up with: Aurelio Rojas MD [Primary Care Provider] -
--- NOTE | 2018-05-31 17:20 | DISCHARGE SUMMARY ---
Discharge Summary Admit Date: 05/30/18 Discharge Date: 05/31/18 Discharging Provider: RAQUEL Mayer Primary Care Provider: Madhavi Jackson Code Status: Attempt Resuscitation Condition at Discharge: Good Discharge Disposition: 01 Home, Self Care - DIAGNOSES Admission Diagnoses: Other ascites (R18.8) Unspecified abdominal pain (R10.9) Anxiety disorder, unspecified (F41.9) Personal history of other specified conditions (Z87.898) Nicotine dependence, unspecified, uncomplicated (F17.200) Discharge Diagnoses with Status of Each Condition: Other ascites (R18.8) improved, patient was started on spironolactone. Unspecified abdominal pain (R10.9) improved, stable. Anxiety disorder, unspecified (F41.9) chronic, stable. Personal history of other specified conditions (Z87.898) chronic, stable. Nicotine dependence, unspecified, uncomplicated (F17.200) chronic, stable. Shortness of breath (R06.02) chronic, stable and improved since paracentesis. - HPI History of Present Illness: Lee Ann Jones is a 58-year old female with a past medical history of alcohol dependence, tobacco dependence, opioid dependence, anxiety, clausterphobia, osteoarthritis, depression, PTSD, ADD, CAD, [place], migraines, tremors, pancreatitis, and cholelithiasis. The patient came to the ED with a primary complaint of shortness of breath and increased abdominal girth. The patient states that over the past month, she has noticed more swelling in her abdomen accompanied with a cough, shortness of breath, loss of appetite, dark urine and decreased activity tolerance. Upon exam the patient appeared short of breath, uncomfortable, and anxious about her upcoming paracentesis. Labs showed a low WBC count of 4.6, an elevated MCV of 102.8, a normal platelet count of 179, a low chloride of 100, an elevated glucose of 126, an elevated bilirubin of 1.2, an elevated AST of 114, and a negative troponin. Her PT/PTT was 1.3/14.3 and a BNP of 142. Labs showed hypertension with a B/P of 136/92, normal heart rate of 79, and she was afebrile. We will admit her to observation for a planned par acentesis in the AM, pain control and re-check labs. - HOSPITAL COURSE Hospital Course: (1) Ascites The patient has a known history of this and states that she just wants to get this taken care of as she will be in her daughter's wedding in the near future and wants to fit into her gown. Plans for the patient to undergo an IR guided paracentesis in the AM. She likely has ascites as a consequence to her alcohol abuse. 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 The patient underwent a paracentesis as planned with an estimated 2L of fluid drained. She did not have any complications, consumed a meal and was discharged on daily Spironolactone which should be continued and titrated up at home. She should establish care with a chart writer. (2) Abdominal pain Upon exam the patient has tenderness in all 4 quadrants of her abdomen. She as a small stature, so her ascities is very pronounced with the appearance of being . She also complains of back pain as a consequence of her increased abdominal girth. She states that in the ED she was given Fentanyl, which worked for her. After her procedure her pain was nearly resolved and she was cautioned to avoid tylenol at home. (3) Anxiety and depression The patient has several addictions in her life including opioids, tobacco, and alcohol. She is consequently a very anxious person. She is not prescribed any antidepressants for this and does not see a regular therapist. She denied suicidal ideation, and is looking forward to her daughter's wedding. (4) H/O ETOH abuse The patient states that she began use in her teens, and doesn't believe that she was ever a true "alcoholic", and her drink of choice was wine. She states that she quit some time last fall. (5) Nicotine dependence The patient states that with her recent shortness of breath, she has cut back on her cigarette use. Plan: Continue to encourage cessation and offer a patch upon discharge. (6) Shortness of breath The patient complained of shortness of breath that started at home and became worse as her ascites became worse. After her paracentesis, this symptom improved but was not resolved. She was encouraged to stop smoking. Disposition: The patient was anxious to return home and was medically stable at the time of discharge. Sprionolactone was sent to her pharmacy and she was given her first dose here. Her PCP should titrate this dose up in the next few months to slow her ascities. - ALLERGIES Allergies/Adverse Reactions: Allergies Allergy/AdvReac Type Severity Reaction Status Date / Time ketorolac tromethamine * Allergy Severe Hives Verified 05/30/18 10:26 [From Toradol] - MEDICATIONS Home Medications: Ambulatory Orders Medication Instructions Recorded Confirmed Buprenorphine HCl/Naloxone HCl 1.75 film SL DAILY 11/14/17 05/30/18 [Suboxone 8 mg-2 mg Sl Film] hydrOXYzine pamoate [Hydroxyzine 25 mg PO Q8H PRN 02/09/18 05/30/18 Pamoate] Spironolactone [Aldactone] 25 mg PO DAILY #30 tablet 05/31/18 - PHYSICAL EXAM AT DISCHARGE General Appearance: positive: No acute distress, Alert, Anxious Eyes Bilateral: positive: Normal inspection, No lid inflammation ENT: positive: ENT inspection nml, Pharynx nml, No signs of dehydration, Pharyngeal erythema Neck: positive: Thyroid nml, No JVD, Trachea midline, Stiff neck Respiratory: positive: Chest non-tender, No respiratory distress, Breath sounds nml Cardiovascular: positive: Regular rate & rhythm, No gallop, Systolic murmur Peripheral Pulses: positive: 1+ Abdomen: positive: Tenderness, Guarding, Abnml bowel sounds Back: positive: Nml inspection Skin: positive: No rash, Warm, Dry, Other (mild jaundice) Extremities: positive: Non-tender, Full ROM, Nml appearance, No pedal edema Neurologic/Psychiatric: positive: Oriented x3, CN's nml (2-12), Motor nml, Sensation nml, Depressed mood/affect Reflexes: Bicep (R): 2+, Bicep (L): 2+ - LABS Result Diagrams: 05/31/18 06:23 05/31/18 06:23 - DIAGNOSTIC IMAGING Diagnostic Imaging Results: Final report reviewed Diagnostic Imaging Results Comments: EXAM: CHEST RADIOGRAPHY EXAM DATE: 05/30/2018 10:45 AM. IMPRESSION: No acute cardiopulmonary abnormality. EXAM: CT ABDOMEN AND PELVIS EXAM DATE: 05/30/2018 01:15 PM. IMPRESSION: 1. Interval development of moderate four-quadrant ascites. 2. Hepatomegaly with recanalized umbilical vein. 3. Chronic pancreatic ductal dilatation with pancreatic divisum. EXAM: ULTRASOUND-GUIDED PARACENTESIS EXAM DATE: 05/31/2018 12:56 PM. IMPRESSION: Ultrasound-guided paracentesis without immediate complications. - FOLLOW UP Follow Up: Disposition: 01 Home, Self Care Condition: Good Prescriptions: Spironolactone [Aldactone] 25 mg PO DAILY #30 tablet Diet: Regular Activity Restrictions: Activity as Tolerated Shower Restrictions: No Driving Restrictions: No Weight Bearing: Full Weight Additional Instructions or Follow Up instructions: You were in observation overnight for pain control as you waited for your paracentesis. You should be referred to a chart writer (a liver specialist) by your PCP. To help slow future swelling, you were started on a medication called Spironolactone, which should be increased in dose at a later date. Please take this everyday. Please do not use alcohol and see your PCP within one week. - TIME SPENT Time Spent in Discharge (Minutes): 40
== END 2018-05-31 17:30 | disposition home or self-care (01) ==
LOC: ED 10:04 → OBS 16:58
PROVIDERS: ADMIT Nurse Practitioner; ATTEND Nurse Practitioner
DX: R18.8 Other ascites (principal); R10.84 Generalized abdominal pain; F41.9 Anxiety disorder, unspecified; F17.210 Nicotine dependence, cigarettes, uncomplicated; F10.21 Alcohol dependence, in remission; F11.21 Opioid dependence, in remission; F32.9 Major depressive disorder, single episode, unspecified; R16.0 Hepatomegaly, not elsewhere classified; I25.2 Old myocardial infarction; I25.10 Atherosclerotic heart disease of native coronary artery without angina pectoris; J44.9 Chronic obstructive pulmonary disease, unspecified; R17 Unspecified jaundice
CPT/HCPCS: 36415; 49083; 71046; 74177; 80053; 81599; 83690; 83880; 84484; 85025; 85610; 87070; 87205; 89051; 93005; 96374; 96376; 99283; 99284; A9270; G0378; Q9967; 82040; 84155

== ENCOUNTER 2018-07-12 14:50 | Outpatient (CLI) | payer MEDICAID | END 2018-07-12 14:51 | disposition critical access hospital (66) | LOC: EMS 14:50 | PROVIDERS: ATTEND Surgery | DX: R10.9 Unspecified abdominal pain (principal) | CPT/HCPCS: A0425; A0429; A0999 ==

== ENCOUNTER 2018-07-12 14:58 | Observation (INO) | payer MEDICAID ==
[2018-07-12 15:43] LABS: BASOPHILS # (AUTO) 0.1 10^3/uL (0.0-0.1); BASOPHILS % (AUTO) 1.7 %; EOSINOPHILS % (AUTO) 0.6 %; HGB - HEMOGLOBIN 14.1 g/dL (12.0-16.0); LYMPHOCYTES # (AUTO) 1.3 10^3/uL (1.5-3.5); LYMPHOCYTES % (AUTO) 22.9 %; MEAN CORPUSCULAR HEMOGLOBIN 33.7 pg (27.0-31.0); MEAN CORPUSCULAR HGB CONC 34.6 g/dL (32.0-36.0); MEAN CORPUSCULAR VOLUME 97.4 fL (81.0-99.0); MEAN PLATELET VOLUME 7.5 fL (7.9-10.8); MONOCYTES # (AUTO) 0.7 10^3/uL (0.0-1.0); MONOCYTES % (AUTO) 11.9 %; NEUTROPHILS # (AUTO) 3.5 10^3/uL (1.5-6.6); NEUTROPHILS % (AUTO) 62.9 %; PLT - PLATELET COUNT 175 10^3/uL (130-450); RED CELL DISTRIBUTION WIDTH 14.8 % (12.0-15.0); WHITE BLOOD COUNT 5.5 x10^3/uL (4.8-10.8)
[2018-07-12] MEDS ORDERED: FUROSEMIDE 40 MG/4 ML VIAL IVP STA (15:46)
[2018-07-12 15:48] LABS: INR 1.3 (0.8-1.2); PT - PROTHROMBIN TIME 15.1 secs (9.9-12.6)
[2018-07-12 15:56] LABS: ALBUMIN 4.6 g/dL (3.2-5.5); ALBUMIN/GLOBULIN RATIO 1.4 (1.0-2.2); BILIRUBIN,TOTAL 1.1 mg/dL (0.2-1.0); CALCIUM 8.9 mg/dL (8.5-10.3); CREATININE 0.5 mg/dL (0.4-1.0); MAGNESIUM 1.9 mg/dL (1.7-2.8); TOTAL PROTEIN 7.9 g/dL (6.7-8.2)
[2018-07-12] MEDS ORDERED: fentaNYL 100 MCG/2 ML VIAL IVP STA (16:04)
--- NOTE | 2018-07-12 16:12 | ED Physician Documentation ---
History of Present Illness - Stated complaint Stated Complaint: PANCREATITIS - Chief complaint Chief Complaint: Abd Pain - History obtained from History obtained from: Patient - History of Present Illness Timing: How many days ago Pain level max: 8 Pain level now: 8 - Treatment prior to arrival Treatment prior to arrival: Patient is a 58-year-old female who presents to the emergency department with abdominal pain today. States worsening of the past 3 days. Feels like her prior bouts of pancreatitis. She denies any alcohol use. Does have ascites. No fevers. No vomiting. States that she believes that her pancreas has "ruptured". Nothing makes the pain better. Worse with movement or palpation. She also feels short of breath. Review of Systems Ten Systems: 10 systems reviewed and negative Constitutional: denies: Fever, Chills Ears: denies: Ear pain Nose: denies: Rhinorrhea / runny nose, Congestion Throat: denies: Sore throat Cardiac: denies: Palpitations Respiratory: denies: Dyspnea, Cough, Wheezing GI: denies: Vomiting, Diarrhea, Hematemesis Skin: denies: Rash Musculoskeletal: denies: Neck pain, Back pain Neurologic: denies: Headache PD PAST MEDICAL HISTORY - Past Medical History Cardiovascular: Coronary artery disease, [place], Murmur Respiratory: COPD, Shortness of breath Neuro: Headaches, Migraines, Tremors Endocrine/Autoimmune: None GI: GERD, Pancreatitis, Cirrhosis, Cholelithiasis, Other 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: None : Nocturia HEENT: Chronic sinusitis Psych: Depression, Anxiety, ADD/ADHD, Post traumatic stress disorder Musculoskeletal: Osteoarthritis, Chronic back pain Derm: None - Past Surgical History Past Surgical History: Yes General: Other /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: Tubal ligation, Breast implants HEENT: Other - Present Medications Home Medications: Ambulatory Orders Medication Instructions Recorded Confirmed Buprenorphine HCl/Naloxone HCl 1.75 film SL DAILY 11/14/17 05/30/18 [Suboxone 8 mg-2 mg Sl Film] Spironolactone [Aldactone] 25 mg PO DAILY #30 tablet 05/31/18 - Allergies Allergies/Adverse Reactions: Allergies Allergy/AdvReac Type Severity Reaction Status Date / Time ketorolac tromethamine * Allergy Severe Hives Verified 05/30/18 10:26 [From Toradol] - Social History Does the pt smoke?: Yes Smoking Status: Current every day smoker Does the pt drink ETOH?: Yes Does the pt have substance abuse?: No - Immunizations Immunizations are current?: Yes Immunizations: TDAP current <10years - POLST Patient has POLST: No POLST Status: Full Code PD ED PE NORMAL - Vitals Vital signs reviewed: Yes - General General: Alert and oriented X 3, No acute distress - HEENT HEENT: Moist mucous membranes - Neck Neck: Supple, no meningeal sign - Cardiac Cardiac: RRR, Strong equal pulses - Respiratory Respiratory: No respiratory distress, Clear bilaterally - Abdomen Abdomen: Soft, Other (Mild tenderness to palpation epigastric. No peritoneal signs. Mild distention, soft) - Derm Derm: Warm and dry - Extremities Extremities: No edema - Neuro Neuro: Alert and oriented X 3 - Psych Psych: Normal mood, Normal affect Results - Vitals Vitals: Vital Signs - 24 hr 07/12/18 15:17 Temperature 36.5 C Heart Rate 92 Respiratory 30 H Rate Blood Pressure 120/84 H O2 Saturation 99 Oxygen O2 Source Room air - Labs Labs: Laboratory Tests 07/12/18 07/12/18 07/12/18 15:37 15:37 15:37 WBC 5.5 RBC 4.20 Hgb 14.1 Hct 40.9 MCV 97.4 MCH 33.7 H MCHC 34.6 RDW 14.8 Plt Count 175 MPV 7.5 L Neut # (Auto) 3.5 Lymph # (Auto) 1.3 L Larue # (Auto) 0.7 Eos # (Auto) 0.0 Baso # (Auto) 0.1 Absolute Nucleated RBC 0.00 Nucleated RBC % 0.0 PT 15.1 H INR 1.3 H APTT 29.4 Sodium 135 Potassium 3.4 L Chloride 100 L Carbon Dioxide 18 L Anion Gap 17.0 H BUN 8 Creatinine 0.5 Estimated GFR (MDRD) 127 Glucose 92 Calcium 8.9 Magnesium 1.9 Total Bilirubin 1.1 H AST 298 H ALT 137 H Alkaline Phosphatase 128 H Total Protein 7.9 Albumin 4.6 Globulin 3.3 Albumin/Globulin Ratio 1.4 Lipase 176 H Ethyl Alcohol 07/12/18 15:55 WBC RBC Hgb Hct MCV MCH MCHC RDW Plt Count MPV Neut # (Auto) Lymph # (Auto) Larue # (Auto) Eos # (Auto) Baso # (Auto) Absolute Nucleated RBC Nucleated RBC % PT INR APTT Sodium Potassium Chloride Carbon Dioxide Anion Gap BUN Creatinine Estimated GFR (MDRD) Glucose Calcium Magnesium Total Bilirubin AST ALT Alkaline Phosphatase Total Protein Albumin Globulin Albumin/Globulin Ratio Lipase Ethyl Alcohol 208.3 PD MEDICAL DECISION MAKING - ED course Complexity details: reviewed results, re-evaluated patient, considered differential, d/w patient ED course: Upon further history, patient now admits to drinking a bottle of wine daily for the last week. This likely the cause of her recurrent pancreatitis. She continues to have pain and is unable to tolerate p.o. well in the emergency department, therefore will place in observation for further care. Discussed the case with Dr. Hanks, hospitalist who accepts This document was made in part using voice recognition software. While efforts are made to proofread this document, sound alike and grammatical errors may occur. Departure - Departure Disposition: ED Place in Observation Clinical Impression: Alcoholic pancreatitis Qualifiers: Chronicity: acute Acute pancreatitis complication: unspecified Qualified C ode(s): K85.20 - Alcohol induced acute pancreatitis without necrosis or infection Condition: Stable Discharge Date/Time: 07/12/18 19:56
[2018-07-12] MEDS ORDERED: MORPHINE 10 MG/ML VIAL IVP STA (16:59)
[2018-07-12] MEDS ORDERED: SODIUM CHLORIDE 0.9% 1,000 ML IV ONE (17:03)
[2018-07-12] MEDS ORDERED: ONDANSETRON ODT 4 MG TABLET TL PRN (17:16)
[2018-07-12] MEDS ORDERED: ONDANSETRON 4 MG/2 ML VIAL IVP PRN (17:16)
--- NOTE | 2018-07-12 17:26 | HISTORY & PHYSICAL EXAMINATION ---
Chief Complaint - Chief Complaint Chief Complaint: Epigastric and left upper quadrant abdominal pain History of Present Illness - Admitted From Admitted From:: Emergency room/home - History Obtained From Records Reviewed: [facility] History obtained from: Dr. Briones and patient Exam Limitations: acute alcohol intoxication - History of Present Illness HPI Comment/Other: This is an unfortunate white female who has been admitted to our facility numerous times for pancreatitis as well as acute alcohol hepatitis and alcoholic liver disease with ascites. She drinks approximately a bottle of wine a day. Last drink was this morning. She has had numerous episodes of pancreatitis and now returns with 3 days of abdominal pain, it hurts too much to take a deep breath. Pain is in the abdomen when she takes a deep breath. She denies fever, chills. There is been no vomiting or diarrhea. No blood in her stool. Pain is in the epigastrium, radiates to the straight to the back, and slightly to the left side. Pancreatitis began in 2010 when she was visiting son in [facility]. Right upper quadrant pain evaluation showed her to have pancreatitis from pancreas divisum. 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 Since that time this patient has had numerous visits to the emergency room for r ight upper quadrant pain. Sometimes she has been thought to have possible acalculous cholecystitis, but many times the patient has been intoxicated and is also felt to have alcoholic pancreatitis. She was evaluated by Dr. Briones in the emergency room. She is afebrile, normotensive, 99% on room air. Breathing at 30 breaths a minute. Potassium was slightly low at 3.4. Chloride is low at 100. Carbon dioxide is low at 18. BUN 8 creatinine 0.5. Total bili is 1.1, AST 298, ALT 137. Lipase 176 1. Ethyl alcohol is 208.3 In the emergency room she is received fentanyl, Lasix, morphine, and a liter of normal saline. 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: reports: None : reports: Nocturia HEENT: reports: Chronic sinusitis Psych: reports: Depression, Anxiety, ADD/ADHD, Post traumatic stress disorder Musculoskeletal: reports: Osteoarthritis, Chronic back pain Derm: reports: None MRSA Hx?: No - Past Surgical History General: reports: Other /CALENDER ROLL PRESS OPERATOR: reports: Tubal ligation, Breast implants HEENT: reports: Other - Family & Social History Family History: Mother: , CVA/TIA, Father: , Hyperlipidemia, Hypertension, [place], Sister: Alive and Well (Epilepsy), Brother: Alive and Well, Other family: Cancer, Diabetes, Type 2 Social History Notes: Patient lives in [place], [place] with her . She has 2 children one son and one daughter. 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 She continues to smoke 3 cigarettes a day and states that she does drink alcohol but only once a week and she drinks 1 large glass of wine. She denies any illicit drug use. - Substance History Use: Uses substance without health or social issues: NONE - POLST Patient has POLST: No POLST Status: Full Code Meds/Allgy - Home Medications Home Medications: Ambulatory Orders Medication Instructions Recorded Confirmed Buprenorphine HCl/Naloxone HCl 1.75 film SL DAILY 11/14/17 05/30/18 [Suboxone 8 mg-2 mg Sl Film] Lipase/Protease/Amylase [Creon 1 each PO TIDWM #90 capsule. 07/13/18 24,000 Units Capsule] Lorazepam [Ativan] 1 mg PO QPM PRN #14 tablet 07/13/18 Ondansetron Odt [Zofran Odt] 4 mg TL Q6HR PRN #15 tablet 07/13/18 Spironolactone [Aldactone] 50 mg PO DAILY #60 tablet 07/13/18 - Allergies Allergies/Adverse Reactions: Allergies Allergy/AdvReac Type Severity Reaction Status Date / Time ketorolac tromethamine * Allergy Severe Hives Verified 05/30/18 10:26 [From Toradol] Review of Systems - Constitutional Constitutional: reports: Fatigue, Malaise, Poor appetite. denies: Fever, Chills, Weakness, Diaphoresis - Eyes Eyes: denies: Pain, Irritation, Vision loss, Dipolpia - Ears, Nose & Throat Ears, Nose & Throat: denies: Ear pain, Vertigo, Nasal obstruction, Postnasal drainage, Sore throat - Cardiovascular Cariovascular: denies: Irregular heart rate, Chest pain, Edema, Syncope, Exertional dyspnea, Orthopnea - Respiratory Respiratory: denies: Cough, Wheezing, Snoring - Gastrointestinal Gastrointestinal: reports: Abdominal pain, Abdominal distention, Nausea, Vomiting. denies: Diarrhea, Change in bowel habits - Genitourinary Genitourinary: denies: Dysuria, Frequency, Urgency - Musculoskeletal Musculoskeletal: denies: Muscle pain, Gout, Joint swelling - Integumentary Integumentary: denies: Rash, Pruritis - Neurological Neurological: denies: General weakness, Focal weakness, Headache - Psychiatric Psychiatric: reports: Anxiety. denies: Depression, Suicidal - Endocrine Endocrine: denies: Polyuria, Polyphagia - Hematologic/Lymphatic Hematologic/Lymphatic: denies: Anemia, Bruising Prior Level of Functionality: Is still working full-time. Completely independent with activities of daily living. Exam - Vital Signs Reviewed Vital Signs: Yes Vital Signs: Vital Signs x48h Temp Pulse Resp BP Pulse Ox 07/12/18 17:23 94 16 113/78 96 07/12/18 15:17 36.5 C 92 30 H 120/84 H 99 - Physical Exam General Appearance: positive: Alert, Mild distress (From her abdominal pain), Other (Middle-aged white female well-groomed well-nourished) Eyes Bilateral: positive: PERRL, EOMI ENT: positive: Dry mucous membranes Neck: positive: No JVD. negative: Stiff neck, Carotid bruit Respiratory: positive: Chest non-tender. negative: Wheezes, Rales Cardiovascular: positive: Regular rate & rhythm. negative: Systolic murmur, Gallop/S4, Friction rub Peripheral Pulses: positive: 1+ Abdomen: positive: Non-tender, No organomegaly, Nml bowel sounds Skin: positive: Color nml, Warm, Dry Extremities: positive: Non-tender, No pedal edema Neurologic/Psychiatric: positive: Oriented x3, CN's nml (2-12), Motor nml, Other (Tearful and embarrassed about her drinking) Conclusion/Plan - Problem List (1) Alcoholic pancreatitis Conclusion/Plan: Even though we are calling this an acute episode of alcoholic pancreatitis and this wound has been drinking a bottle of wine for a week, this is most likely acute on chronic. She has been having episodes of pancreatitis for years now. Episodic binge drinking.In the past the differential diagnosis included her pancreas divisum, acalculus cholecystitis vs. gallstone pancreatitis. At this point in time I think it is reasonable to say that this is alcoholic pancreatitis. [place] criteria calculated at 2 points. Severe pancreatitis unlikely Plan: Place in observation Give 3 L of IV fluid over the next 24 hours Monitor BMP and hemoglobin hematocrit to then recalculate Julia criteria tomorrow Control pain with IV opiates Control nausea with Zofran Patient counseled to stop drinking and why Qualifiers: Chronicity: acute Acute pancreatitis complication: no infection or necrosis Qualified Code(s): K85.20 - Alcohol induced acute pancreatitis without necrosis or infection (2) Alcoholic hepatitis with ascites Conclusion/Plan: She continues to be a binge drinker. Previous ultrasounds of confirmed fatty liver.She says that she is going to stop drinking. Her daughter is so angry at her right now.Although the thought of spontaneous bacterial peritonitis is been thought of, in a patient with this ascites, she is adamant that this abdominal pain is the same pain that she always has with her pancreatitis and from to the epigastric and left upper quadrant. Plan: Patient is again counseled with regards to what this means. How alcoholic liver disease can progress to esophageal varices, fulminant liver failure.. Banana bag to be started. Ultrasound ordered and canceled. No paracentesis at this time. Monitor for SS of withdrawal. (3) Hypokalemia Conclusion/Plan: Supplement IV - Lab Results Fish Bones: 07/13/18 05:26 07/13/18 05:26 Other Lab Results: Laboratory Tests 07/12/18 15:37 Sodium 135 Potassium 3.4 L Chloride 100 L Carbon Dioxide 18 L Anion Gap 17.0 H Calcium 8.9 Magnesium 1.9 Total Bilirubin 1.1 H AST 298 H ALT 137 H Alkaline Phosphatase 128 H Total Protein 7.9 Lipase 176 H Laboratory Tests 07/12/18 15:37 WBC 5.5 RBC 4.20 Hgb 14.1 Hct 40.9 MCV 97.4 Plt Count 175 - Diagnostic Imaging Results Diagnostic Imaging Results Comments: Review of CT of abdomen and pelvis from May 30 shows a enlarged, fatty liver. Recanalized umbilical vein. Portal vein patent. Pancreatic ductal dilatation 7 mm with known pancreas divisum stable. Moderate 4 quadrant ascites. Chronic L2 compression. - EKG Results EKG Interpreted Independently: No Core Measures - Anticipated LOS I expect patient to be DC'd or transferred within 96 hours.: Yes - DVT/VTE - Prophylaxis VTE/DVT Device ordered at admit?: Yes
[2018-07-12] MEDS: HYDROmorphone 1 MG/ML CARPUJECT IVP PRN ×3 (18:22→22:30)
[2018-07-12] MEDS ORDERED: NICOTINE 21 MG PATCH TOP SCH (21:56)
[2018-07-12] MEDS: SODIUM CHLORIDE FLUSH 0.9% 10 ML SYRINGE IVP PRN ×2 (22:30→23:06)
[2018-07-12] MEDS: DEXTROSE 5%-0.9% NACL 1,000 ML IV SCH ×2 (23:06→23:39)
[2018-07-12 23:07] LABS: MUDS CUTOFF CONCENTRATIONS CUTOFF CONC BELOW:
[2018-07-12 23:18] LABS: AMPHETAMINE SCREEN,URINE POSITIVE (NEGATIVE); BENZODIAZEPINES SCREEN, URINE NEGATIVE (NEGATIVE); COCAINE SCREEN URINE NEGATIVE (NEGATIVE); METHADONE SCREEN, URINE NEGATIVE (NEGATIVE); METHAMPHETAMINES SCREEN, URINE POSITIVE (NEGATIVE); OPIATE SCREEN, URINE POSITIVE (NEGATIVE); OXYCODONE SCREEN, URINE NEGATIVE (NEGATIVE); PROPOXYPHENE SCREEN, URINE NEGATIVE (NEGATIVE); TRICYCLIC ANTIDEPRESSANT,URINE NEGATIVE (NEGATIVE)
[2018-07-12] MEDS: SODIUM CHLORIDE FLUSH 0.9% 10 ML SYRINGE IVP SCH (23:49)
[2018-07-13] MEDS ORDERED: LORazepam 2 MG/ML VIAL IVP SCH (00:08)
[2018-07-13] MEDS: SODIUM CHLORIDE FLUSH 0.9% 10 ML SYRINGE IVP PRN ×5 (00:36→14:49)
[2018-07-13] MEDS: HYDROmorphone 1 MG/ML CARPUJECT IVP PRN ×7 (00:36→17:09)
[2018-07-13] MEDS: DEXTROSE 5%-0.9% NACL 1,000 ML IV SCH (04:20)
[2018-07-13 05:41] LABS: BASOPHILS % (AUTO) 1.1 %; EOSINOPHILS # (AUTO) 0.1 10^3/uL (0.0-0.7); EOSINOPHILS % (AUTO) 1.5 %; HGB - HEMOGLOBIN 11.7 g/dL (12.0-16.0); LYMPHOCYTES # (AUTO) 1.5 10^3/uL (1.5-3.5); LYMPHOCYTES % (AUTO) 35.1 %; MEAN CORPUSCULAR HEMOGLOBIN 33.2 pg (27.0-31.0); MEAN CORPUSCULAR HGB CONC 33.8 g/dL (32.0-36.0); MEAN CORPUSCULAR VOLUME 98.3 fL (81.0-99.0); MEAN PLATELET VOLUME 7.3 fL (7.9-10.8); MONOCYTES # (AUTO) 0.6 10^3/uL (0.0-1.0); MONOCYTES % (AUTO) 13.2 %; NEUTROPHILS # (AUTO) 2.1 10^3/uL (1.5-6.6); NEUTROPHILS % (AUTO) 49.1 %; PLT - PLATELET COUNT 145 10^3/uL (130-450); RED BLOOD COUNT 3.53 10^6/uL (4.20-5.40); RED CELL DISTRIBUTION WIDTH 14.4 % (12.0-15.0); WHITE BLOOD COUNT 4.3 x10^3/uL (4.8-10.8)
[2018-07-13 05:55] LABS: ALBUMIN 3.5 g/dL (3.2-5.5); ALBUMIN/GLOBULIN RATIO 1.2 (1.0-2.2); BILIRUBIN,TOTAL 1.4 mg/dL (0.2-1.0); CALCIUM 7.5 mg/dL (8.5-10.3); CREATININE 0.4 mg/dL (0.4-1.0); PHOSPHORUS 3.4 mg/dL (2.5-4.6); TOTAL PROTEIN 6.4 g/dL (6.7-8.2)
[2018-07-13] MEDS: SODIUM CHLORIDE FLUSH 0.9% 10 ML SYRINGE IVP SCH (07:44)
[2018-07-13] MEDS: POTASSIUM CHLORIDE INJ 40 MEQ in SODIUM CHLORIDE 0.9% 500 ML IV SCH ×2 (08:42→12:56)
[2018-07-13] MEDS ORDERED: POLYETHYLENE GLYCOL 3350 17 GM PACKET PO SCH (09:00)
[2018-07-13] MEDS ORDERED: MULTIVITAMIN 10 ML, THIAMINE INJ 100 MG, FOLIC ACID INJ 1 MG in D5.45NS W/20 MEQ KCL 1,... IV SCH (09:00)
[2018-07-13] MEDS ORDERED: NICOTINE 7 MG PATCH TOP SCH (09:00)
--- NOTE | 2018-07-13 17:21 | Discharge Plan ---
Discharge Plan Disposition: Home, Self Care Condition: Good Prescriptions: Ondansetron Odt [Zofran Odt] 4 mg TL Q6HR PRN #15 tablet PRN Reason: Nausea / Vomiting Lipase/Protease/Amylase [Bulmaro Rosaroi 24,000 Units Capsule] 1 each PO TIDWM #90 capsule. Lorazepam [Ativan] 1 mg PO QPM PRN #14 tablet PRN Reason: Insomnia Potassium Chloride [Klor-Con 10] 20 meq PO DAILY #14 tablet.er Spironolactone [Aldactone] 50 mg PO DAILY #60 tablet Diet: Regular (very low fat with soft easy to digest foods for the next week. Stick close to clear liquids as possible while your pancreas recovers. use the pancreatic enzymes when you eat.) Activity Restrictions: Activity as Tolerated Shower Restrictions: No Driving Restrictions: No Instruction Topics: Lorazepam tablets, Ondansetron tablets, Pancrelipase capsules, Spironolactone tablets, Pancreatitis Chronic Dc Additional Instructions or Follow Up instructions: You were placed in the hospital for observation for recurrent bout of abdominal pain from low-grade pancreatitis. You have 2 causes for your pancreatitis which includes pancreas divisum as well as alcoholic pancreatitis. You must stop dr orlando completely. You cannot have any alcohol at all for the rest of your life.Our oncology social worker has given you a list of possible rehab facilities. I also recommend you join a support group such as Alcoholics Anonymous. You required only one overnight stay. While you are uncomfortable with eating, it is not agonizing. Your vomiting has stopped. I am sending you home on Ativan to help you sleep at night. Pancreatic enzymes to take with each meal to help her digest food. I am also sending you home with Zofran to help you with nausea if it recurs. You may resume your other usual medications. No Smoking: If you smoke, Please STOP! Call for help. Follow-up with: Madhavi Love ARNP [Credentialed Staff Provider] -
[2018-07-13 18:11] VITALS: BP 110/60
--- NOTE | 2018-07-13 19:25 | DISCHARGE SUMMARY ---
Physician: Genet Hanks MD DATE OF ADMISSION: 07/12/2018 DATE OF DISCHARGE: 07/13/2018 DISCHARGE DIAGNOSES 1. Alcoholic pancreatitis. 2. Alcoholic hepatitis with ascites. 3. Hypokalemia. 4. Left upper quadrant abdominal pain. DISCHARGE MEDICATIONS: 1. Buprenorphine with naloxone 1.75 film sublingual daily. 2. Zofran ODT 4 mg every 6 hours as needed for nausea. 3. Creon 24,000-unit capsule 1 capsule with each meal t.i.d. 4. Ativan 1 mg p.o. q. p.m., #14. 5. Potassium chloride 10-mEq tablet 20 mEq daily for 7 days only. 6. Spironolactone increased from 25 mg daily to 50 mg daily. ADMISSION HISTORY: She is a 58-year-old, white female who has a history of pancreas divisum. Initially, that was felt to be the cause of her pancreatitis that started approximately 2010; however, with her frequent hospitalizations or visits to our emergency room, it has become increasingly evident that this patient's pancreatitis is from alcohol abuse. She has been evaluated as gallstone pancreatitis as well. General surgery has seen her twice now. They do not feel she has gallstone pancreatitis. They do not even feel she has acalculous cholecystitis. She is currently drinking a bottle of wine a day. For the last 3 days, she has had increasing abdominal pain, superimposed on chronic abdominal burning. The pain is pleuritic, worse with lying on that side. She denies fever or chills. There has been no vomiting or diarrhea. No blood in her stool. Pain is in the epigastrium and to the left upper quadrant and straight to the back, made worse by food. She was evaluated in the emergency room by Dr. Lan and was afebrile, normotensive, 99% on room air, initially breathing at 30 breaths a minute and, with pain control and IV fluids, was down to normal breaths per minute. Potassium slightly low at 3.4, chloride low at 100, carbon dioxide low at 18. BUN 8, creatinine 0.5. Liver enzymes had an AST of 298, ALT 137, lipase 176 with ethyl alcohol level 208.3. In the emergency room, she received Fentanyl, Lasix, morphine, and a liter of normal saline. She was feeling increasing abdominal distention from the ascites that was seen in May 2018 admission. She did not want a paracentesis, and she states that Lasix made her feel much better. HOSPITAL COURSE: The patient was initially made n.p.o., given 3 liters of fluid over 24 hours. Initial Julia criteria without a blood gas was calculated at 2 points with severe pancreatitis unlikely. Over the next 24 hours, the patient's Julia's criteria changed to 5 points with a 40% predicted mortality. In spite of increasing risks and increasing Julia score, the patient was clinically better. She really wanted to eat and to go home. She was started on a clear liquid diet in the morning and had only midabdominal burning with this, then transitioned to a regular diet that was low fat. Again, she had some abdominal burning with this that was worse, but nothing approaching the severity of her abdominal pain that she has had in the past. She has a slightly distended belly with a fluid wave. Pain is only in the epigastrium and left upper quadrant. We did wonder about spontaneous bacterial peritonitis, but since the pain remained localized only to the areas of where she feels her usual pancreatitis is, we did not pursue a paracentesis. Vital signs remained stable during her stay. She was a little bit hypotensive at 102/57 on the day of discharge, but by the time of discharge was 110/68. She was tolerating a regular diet. Pain was controlled with oral oxycodone alternating with Tylenol. She was requesting Ativan to be given to her at home. She says a part of her problem is insomnia at night, so she uses her alcohol to not only control her pain, but to also get her to sleep at night. I explained to her that her mortality risk is much increased because of her drinking. Over the last couple of years, she has shown progression in the fatty liver disease, which is most likely now to be alcoholic cirrhosis. She has now developed ascites. All prognostic indicators indicate a poor prognosis, if she continues what she is doing, to eventual . She is tearful. She says that her boyfriend and her daughter are quite angry with her right now. She is adamant that she will stop drinking. She was given a list of counselors for rehabilitation. She was also advised to at least start attending AA meetings. During her stay, she did receive a banana bag. At discharge, I have added Bulmaro, started Ativan for only 7 nights. I am strongly encouraging her to take a vitamin. She was hypokalemic during her stay. I requested her to take potassium on a daily basis for the next 7 days and get a BMP checked to make sure she is not hyperkalemic in the face of spironolactone. She said the spironolactone 25 mg is not helping her and requested that she go up to 50 mg a day, and that was given to her as well. I explained that the spironolactone and the potassium supplement can result in too high serum potassium level and that it was important she followup with her PCP to get that checked. I also prescribed Zofran for nausea. I have asked her to please follow up with her primary care provider in the next 1 week, again to stop drinking. At discharge, temperature was 37.1, pulse 82, blood pressure 110/60, respirations 18, 98% on room air. She is a slender, slightly underweight, middle-aged female, pale, but no jaundice. Neck is supple. Lungs are clear. She has a regular rate and rhythm with diminished breath sounds at the bases, which improved with a deep cough. She has a regular rate and rhythm. No murmurs, rubs, or gallops. Abdomen is slightly distended with a slight fluid wave. Tenderness is almost completely gone in the epigastrium and left upper quadrant at discharge. She said it is bearable and controllable and she does not want to stay. Extremities have no edema. Greater than 30 minutes was spent coordinating discharge. TD: 07/13/2018 18:39 NATHAN
== END 2018-07-13 18:01 | disposition home or self-care (01) ==
LOC: ED 14:58 → ICU 17:16 → OBS 19:49
PROVIDERS: ADMIT Specialist; ATTEND Specialist
DX: K85.20 Alcohol induced acute pancreatitis without necrosis or infection (principal); F10.129 Alcohol abuse with intoxication, unspecified; K70.11 Alcoholic hepatitis with ascites; E87.6 Hypokalemia; I25.10 Atherosclerotic heart disease of native coronary artery without angina pectoris; J44.9 Chronic obstructive pulmonary disease, unspecified; R01.1 Cardiac murmur, unspecified; G43.909 Migraine, unspecified, not intractable, without status migrainosus; K21.9 Gastro-esophageal reflux disease without esophagitis; R35.1 Nocturia; J32.9 Chronic sinusitis, unspecified; F41.9 Anxiety disorder, unspecified; F90.9 Attention-deficit hyperactivity disorder, unspecified type; F43.10 Post-traumatic stress disorder, unspecified; M19.90 Unspecified osteoarthritis, unspecified site; G89.29 Other chronic pain; M54.9 Dorsalgia, unspecified; F17.210 Nicotine dependence, cigarettes, uncomplicated; I25.2 Old myocardial infarction
CPT/HCPCS: 36415; 80053; 80306; 80320; 82150; 83690; 83735; 84100; 85025; 85610; 85730; 96361; 96365; 96366; 96367; 96368; 96375; 96376; 99284; A9270; G0378; J1170; J2060; J3411; 96374

== ENCOUNTER 2018-08-14 13:34 | Outpatient (CLI) | payer MEDICAID ==
[2018-08-14 14:17] LABS: CALCIUM 9.2 mg/dL (8.5-10.3); CREATININE 0.7 mg/dL (0.4-1.0)
== END 2018-08-14 13:35 | disposition home or self-care (01) ==
LOC: LAB 13:34
PROVIDERS: ATTEND Nurse Practitioner
DX: E87.6 Hypokalemia (principal); E53.8 Deficiency of other specified B group vitamins
CPT/HCPCS: 36415; 80048; 82607

== ENCOUNTER 2018-08-19 12:21 | Emergency (ER) | payer MEDICAID ==
[2018-08-19] MEDS ORDERED: LIDOCAINE 1% 2 ML VIAL SUBQ ONE (13:59)
[2018-08-19] MEDS ORDERED: cefTRIAXone 1 GM VIAL IM STA (13:59)
--- NOTE | 2018-08-19 14:02 | ED Physician Documentation ---
PD HPI ANIMAL BITE - Stated complaint Stated Complaint: CAT BITE - Chief complaint Chief Complaint: Wound - History obtained from History obtained from: Patient - History of Present Illness Location of injury(ies): LUE, Left hand Details of the event: Cat, Bite, Scratch, Wild animal, Well appearing, Immunization unknown, Provoked Timing - onset: Last night Timing - duration: Hours Timing - details: Abrupt onset, Still present Improved by: Rest, Immobilization Worsened by: Moving, Palpating Associated symptoms: Swelling, Discolored. No: Weakness, Numbness Similar symptoms before: Has not had sx before Recently seen: Not recently seen - Additional information Additional information: 58-year-old female with history of alcoholic cirrhosis has been bitten by a cat last night and she developed immediate redness and swelling. She has had redness and swelling overnight she is come in now to the emergency department with redness and swelling of her left hand. She has bites on the forearm but do not appear to have had any type of reaction to them. She states that the cat is a fat appearing cat that did not appear ill and that is familiar to her neighborhood. When she tried to pet the cat the cat attacked her. She is uncertain about the animals immunizations. Review of Systems Constitutional: denies: Fever, Chills, Myalgias Eyes: denies: Decreased vision Ears: denies: Ear pain Nose: denies: Rhinorrhea / runny nose, Congestion Throat: denies: Sore throat Respiratory: denies: Cough GI: denies: Abdominal Pain, Nausea, Vomiting : denies: Dysuria Skin: denies: Rash Musculoskeletal: reports: Extremity pain, Extremity swelling. denies: Neck pain, Back pain Neurologic: denies: Generalized weakness, Focal weakness, Numbness PD PAST MEDICAL HISTORY - Past Medical History Past Medical History: Yes Cardiovascular: Coronary artery disease, [place], Murmur Respiratory: COPD, Shortness of breath Neuro: Headaches, Migraines, Tremors Endocrine/Autoimmune: None GI: GERD, Pancreatitis, Cirrhosis, Cholelithiasis, Other TOBACCO SORTER: None : Nocturia HEENT: Chronic sinusitis Psych: Depression, Anxiety, ADD/ADHD, Post traumatic stress disorder Musculoskeletal: Osteoarthritis, Chronic back pain Derm: None - Past Surgical History Past Surgical History: Yes General: Other Ortho: Other /TOBACCO SORTER: Tubal ligation, Breast implants HEENT: Other - Present Medications Home Medications: Ambulatory Orders Medication Instructions Recorded Confirmed Buprenorphine HCl/Naloxone HCl 1.75 film SL DAILY 11/14/17 05/30/18 [Suboxone 8 mg-2 mg Sl Film] Lipase/Protease/Amylase [Bulmaro Rosario 1 each PO TIDWM #90 capsule. 07/13/18 24,000 Units Capsule] Ondansetron Odt [Zofran Odt] 4 mg TL Q6HR PRN #15 tablet 07/13/18 Spironolactone [Aldactone] 50 mg PO DAILY #60 tablet 07/13/18 Amox/Clav 875/125 [Augmentin] 1 each PO Q12H #14 tablet 08/19/18 Indomethacin 08/19/18 08/19/18 - Allergies Allergies/Adverse Reactions: Allergies Allergy/AdvReac Type Severity Reaction Status Date / Time ketorolac tromethamine * Allergy Severe Hives Verified 08/19/18 12:31 [From Toradol] - Social History Does the pt smoke?: Yes Smoking Status: Current every day smoker Does the pt drink ETOH?: No Does the pt have substance abuse?: No - Immunizations Immunizations are current?: No Immunizations: TDAP >10years/unknown - POLST Patient has POLST: No POLST Status: Full Code PD ED PE NORMAL - Vitals Vital signs reviewed: Yes (hypertensive ) - General General: Alert and oriented X 3, No acute distress, Well developed/nourished - HEENT HEENT: Atraumatic, PERRL, EOMI - Neck Neck: Supple, no meningeal sign - Respiratory Respiratory: No respiratory distress - Derm Derm: Normal color, Warm and dry, No rash - Extremities Extremities: No deformity, Other (There is swelling and erythema to the dorsum of the left hand with puncture catalan consistent with bites. There are bite markes to the proxima forearm and these to not appear inflammed. ) - Neuro Neuro: Alert and oriented X 3, foreign languages professor 2-12 intact, No motor deficit, No sensory deficit, Normal speech Eye Opening: Spontaneous Motor: Obeys Commands Verbal: Oriented GCS Score: 15 - Psych Psych: Normal mood, Normal affect Results - Vitals Vitals: Vital Signs - 24 hr 08/19/18 12:29 Temperature 37 C Heart Rate 73 Respiratory 17 Rate Blood Pressure 148/83 H O2 Saturation 100 Oxygen O2 Source Room air PD MEDICAL DECISION MAKING - ED course Complexity details: reviewed old records, considered differential, d/w patient ED course: 58-year-old female with an infected cat bite appears to have cellulitis to the left hand. She is administered Rocephin 1 [address] IM and will [address] her on some Augmentin. I have given the patient instructions to return to the emergency department should she have progression of symptoms despite beginning of treatment. Her wound is marked with a surgical marker at 2:00 in the afternoon. Departure - Departure Disposition: 01 Home, Self Care Clinical Impression: Infected cat bite of hand Qualifiers: Encounter type: initial encounter Laterality: left Qualified Code(s): S61.452A - Open bite of left hand, initial encounter; L08.9 - Local infection of the skin and subcutaneous tissue, unspecified; W55.01XA - Bitten by cat, initial encounter Condition: Stable Instructions: ED Bite Cat Follow-Up: Phyllis Daugherty DNP [Primary Care Provider] - Prescriptions: Amox/Clav 875/125 [Augmentin] 1 each PO Q12H #14 tablet
[2018-08-19 14:22] VITALS: BP 140/87
== END 2018-08-19 14:22 | disposition home or self-care (01) ==
LOC: ED 12:21
DX: S61.452A Open bite of left hand, initial encounter (principal); L08.9 Local infection of the skin and subcutaneous tissue, unspecified; W55.01XA Bitten by cat, initial encounter; I25.10 Atherosclerotic heart disease of native coronary artery without angina pectoris; I25.2 Old myocardial infarction; F17.200 Nicotine dependence, unspecified, uncomplicated
CPT/HCPCS: 96372; 99283

== ENCOUNTER 2018-09-19 23:53 | Observation (INO) | payer MEDICAID ==
[2018-09-20 00:21] LABS: BASOPHILS % (AUTO) 0.7 %; EOSINOPHILS % (AUTO) 0.7 %; LYMPHOCYTES # (AUTO) 1.2 10^3/uL (1.5-3.5); LYMPHOCYTES % (AUTO) 23.1 %; MEAN CORPUSCULAR HEMOGLOBIN 33.8 pg (27.0-31.0); MEAN CORPUSCULAR HGB CONC 35.1 g/dL (32.0-36.0); MEAN CORPUSCULAR VOLUME 96.4 fL (81.0-99.0); MEAN PLATELET VOLUME 7.4 fL (7.9-10.8); MONOCYTES # (AUTO) 0.4 10^3/uL (0.0-1.0); MONOCYTES % (AUTO) 8.6 %; NEUTROPHILS # (AUTO) 3.4 10^3/uL (1.5-6.6); NEUTROPHILS % (AUTO) 66.9 %; PLT - PLATELET COUNT 119 10^3/uL (130-450); RED BLOOD COUNT 3.83 10^6/uL (4.20-5.40); RED CELL DISTRIBUTION WIDTH 15.7 % (12.0-15.0); WHITE BLOOD COUNT 5.2 x10^3/uL (4.8-10.8)
[2018-09-20] MEDS ORDERED: ONDANSETRON 4 MG/2 ML VIAL IVP STA (00:29)
[2018-09-20] MEDS ORDERED: SODIUM CHLORIDE 0.9% 1,000 ML IV ONE (00:29)
[2018-09-20] MEDS ORDERED: HYDROmorphone 1 MG/ML CARPUJECT IVP STA ×2 (00:29→01:21)
[2018-09-20 00:30] LABS: ALBUMIN 4.5 g/dL (3.2-5.5); ALBUMIN/GLOBULIN RATIO 1.5 (1.0-2.2); CALCIUM 9.4 mg/dL (8.5-10.3); CREATININE 0.5 mg/dL (0.4-1.0); TOTAL PROTEIN 7.6 g/dL (6.7-8.2)
[2018-09-20 00:38] LABS: MUDS CUTOFF CONCENTRATIONS CUTOFF CONC BELOW:
[2018-09-20 00:46] LABS: BILIRUBIN,URINE NEGATIVE (NEGATIVE); GLUCOSE, URINE (UA) NEGATIVE (NEGATIVE); KETONES,URINE (UA) NEGATIVE (NEGATIVE); LEUKOCYTE ESTERASE, URINE NEGATIVE (NEGATIVE); NITRITE,URINE NEGATIVE (NEGATIVE); OCCULT BLOOD,URINE NEGATIVE (NEGATIVE); PH,URINE 7.5 PH (5.0-7.5); PROTEIN,URINE NEGATIVE (NEGATIVE); UROBILINOGEN,URINE 2 E.U./dL (NORMAL)
[2018-09-20 00:48] LABS: INR 1.2 (0.8-1.2)
[2018-09-20 00:50] LABS: CLARITY,URINE CLEAR (CLEAR)
[2018-09-20 01:17] LABS: AMPHETAMINE SCREEN,URINE NEGATIVE (NEGATIVE); BENZODIAZEPINES SCREEN, URINE NEGATIVE (NEGATIVE); COCAINE SCREEN URINE NEGATIVE (NEGATIVE); METHADONE SCREEN, URINE NEGATIVE (NEGATIVE); METHAMPHETAMINES SCREEN, URINE NEGATIVE (NEGATIVE); OPIATE SCREEN, URINE NEGATIVE (NEGATIVE); OXYCODONE SCREEN, URINE POSITIVE (NEGATIVE); PROPOXYPHENE SCREEN, URINE NEGATIVE (NEGATIVE); TRICYCLIC ANTIDEPRESSANT,URINE NEGATIVE (NEGATIVE)
[2018-09-20] MEDS ORDERED: FOLIC ACID INJ 1 MG, THIAMINE INJ 100 MG, MAGNESIUM SULFATE 2 GM, MULTIVITAMIN 10 ML in... IV STA ×5 (02:04)
--- NOTE | 2018-09-20 02:07 | ED Physician Documentation ---
PD HPI ABD PAIN - Stated complaint Stated Complaint: ABDOMINAL PAIN - Chief complaint Chief Complaint: Abd Pain - History obtained from History obtained from: Patient - History of Present Illness Timing - onset: How many days ago (5) Timing - duration: Days (5) Timing - details: Gradual onset, Still present, Waxing and waning Quality: Sharp, Pain Location: RUQ Improved by: Position Worsened by: Eating, Moving, Breathing, Position, Palpation Associated symptoms: Nausea, Vomiting, Loss of appetite Similar symptoms before: Diagnosis (alcoholic pancreatitis) Recently seen: Admitted - Additional information Additional information: 58-year-old alcoholic female presents to the emergency department with abdominal pain nausea and vomiting of 5 days duration. She states that she was attempted to treat this at home by not eating and staying in her room. She admits to having some wine this morning to make her feel better. She has noted abdominal distention and pain. She is recently been admitted into the hospital again at the end of June and she was discharged the following day improved.A review of the patient's medical record indicates that she does have pancreatic divisum and that this has previously been treated years ago. She carries a diagnosis of recurrent pancreatitis and she has a history of an issue with her gallbladder that is never been completely resolved. She has had a distended tender gallbladder previously with prior admissions that all appeared to be related to alcohol. Review of Systems Constitutional: reports: Myalgias, Fatigue. denies: Fever Eyes: denies: Decreased vision Ears: denies: Ear pain Nose: denies: Rhinorrhea / runny nose, Congestion Throat: denies: Sore throat Cardiac: denies: Chest pain / pressure, Palpitations Respiratory: denies: Dyspnea, Cough GI: reports: Abdominal Pain, Nausea, Vomiting. denies: Diarrhea : denies: Dysuria, Frequency Skin: denies: Rash, Lesions Musculoskeletal: reports: Back pain. denies: Neck pain Neurologic: reports: Generalized weakness. 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 07/13/18 09/20/18 24,000 Units Capsule] Ondansetron Odt [Zofran Odt] 4 mg TL Q6HR PRN #15 tablet 07/13/18 09/20/18 Spironolactone [Aldactone] 50 mg PO DAILY #60 tablet 07/13/18 09/20/18 - Allergies Allergies/Adverse Reactions: Allergies Allergy/AdvReac Type Severity Reaction Status Date / Time ketorolac tromethamine * Allergy Severe Hives Verified 09/19/18 23:58 [From Toradol] - Social History Does the pt smoke?: Yes Smoking Status: Current every day smoker Does the pt drink ETOH?: No Does the pt have substance abuse?: No - Immunizations Immunizations are current?: No Immunizations: TDAP >10years/unknown - POLST Patient has POLST: No POLST Status: Full Code PD ED PE NORMAL - Vitals Vital signs reviewed: Yes (tachy nad hypertensive) - General General: Alert and oriented X 3, Well developed/nourished, Other (moaning in pain rolling side to side) - HEENT HEENT: Atraumatic, PERRL, EOMI, Other (no scleral icterus ) - Neck Neck: Supple, no meningeal sign, No bony TTP - Cardiac Cardiac: No murmur, Other (tachy to 110) - Respiratory Respiratory: No respiratory distress, Clear bilaterally - Abdomen Abdomen: Other (The abdomen is firm and tender to palpation in the RUQ. The pain behavior appear exaggerated with light touch. There is no LUQ tenderness. There is some distention of the abdomen. ) - Back Back: No CVA TTP, No spinal TTP - Derm Derm: Normal color, Warm and dry, No rash - Extremities Extremities: No deformity, No edema - Neuro Neuro: Alert and oriented X 3, hide and skin classer 2-12 intact, No motor deficit, No sensory deficit, Normal speech Eye Opening: Spontaneous Motor: Obeys Commands Verbal: Oriented GCS Score: 15 - Psych Psych: Other (mood is withdrawn and the affect is flat ) Results - Vitals Vitals: Vital Signs - 24 hr 09/19/18 09/20/18 09/20/18 23:56 00:54 01:13 Temperature 35.9 C L Heart Rate 108 H 85 87 Respiratory 18 16 18 Rate Blood Pressure 139/78 H 130/75 115/71 O2 Saturation 99 99 96 09/20/18 09/20/18 09/20/18 01:40 01:54 02:42 Temperature 36.4 C L Heart Rate 85 86 90 Respiratory 15 17 16 Rate Blood Pressure 111/69 120/71 127/62 O2 Saturation 100 98 98 09/20/18 03:10 Temperature Heart Rate 93 Respiratory 16 Rate Blood Pressure 108/65 O2 Saturation 96 Oxygen O2 Source Room air - Labs Labs: Laboratory Tests 09/20/18 09/20/18 09/20/18 00:10 00:10 00:10 WBC 5.2 RBC 3.83 L Hgb 13.0 Hct 36.9 L MCV 96.4 MCH 33.8 H MCHC 35.1 RDW 15.7 H Plt Count 119 L MPV 7.4 L Neut # (Auto) 3.4 Lymph # (Auto) 1.2 L Pope # (Auto) 0.4 Eos # (Auto) 0.0 Baso # (Auto) 0.0 Absolute Nucleated RBC 0.00 Nucleated RBC % 0.1 PT 13.0 H INR 1.2 Sodium 134 L Potassium 3.8 Chloride 94 L Carbon Dioxide 26 Anion Gap 14.0 H BUN 5 L Creatinine 0.5 Estimated GFR (MDRD) 127 Glucose 132 H Calcium 9.4 Total Bilirubin 1.0 AST 98 H ALT 45 Alkaline Phosphatase 116 Total Protein 7.6 Albumin 4.5 Globulin 3.1 Albumin/Globulin Ratio 1.5 Amylase 98 Lipase 90 H Urine Color Urine Clarity Urine pH Ur Specific [place] Urine Protein Urine Glucose (UA) Urine Ketones Urine Occult Blood Urine Nitrite Urine Bilirubin Urine Urobilinogen Ur Leukocyte Esterase Ur Microscopic Review Urine Culture Comments Urine Opiates Screen Ur Oxycodone Screen Urine Methadone Screen Ur Propoxyphene Screen Ur Barbiturates Screen Ur Tricyclics Screen Ur Phencyclidine Scrn Ur Amphetamine Screen U Methamphetamines Scrn U Benzodiazepines Scrn Urine Cocaine Screen U Cannabinoids Screen Ethyl Alcohol 122.5 09/20/18 00:35 WBC RBC Hgb Hct MCV MCH MCHC RDW Plt Count MPV Neut # (Auto) Lymph # (Auto) Pope # (Auto) Eos # (Auto) Baso # (Auto) Absolute Nucleated RBC Nucleated RBC % PT INR Sodium Potassium Chloride Carbon Dioxide Anion Gap BUN Creatinine Estimated GFR (MDRD) Glucose Calcium Total Bilirubin AST ALT Alkaline Phosphatase Total Protein Albumin Globulin Albumin/Globulin Ratio Amylase Lipase Urine Color YELLOW Urine Clarity CLEAR Urine pH 7.5 Ur Specific [place] 1.015 Urine Protein NEGATIVE Urine Glucose (UA) NEGATIVE Urine Ketones NEGATIVE Urine Occult Blood NEGATIVE Urine Nitrite NEGATIVE Urine Bilirubin NEGATIVE Urine Urobilinogen 2 H Ur Leukocyte Esterase NEGATIVE Ur Microscopic Review NOT INDICATED Urine Culture Comments NOT INDICATED Urine Opiates Screen NEGATIVE Ur Oxycodone Screen POSITIVE H Urine Methadone Screen NEGATIVE Ur Propoxyphene Screen NEGATIVE Ur Barbiturates Screen NEGATIVE Ur Tricyclics Screen NEGATIVE Ur Phencyclidine Scrn NEGATIVE Ur Amphetamine Screen NEGATIVE U Methamphetamines Scrn NEGATIVE U Benzodiazepines Scrn NEGATIVE Urine Cocaine Screen NEGATIVE U Cannabinoids Screen NEGATIVE Ethyl Alcohol Procedures - Bedside sono Bedside sono by EMP: With use of bedside ultrasound the gallbladder is imaged it does appear to be tender and distended with a gallbladder wall thickness of 0.4 cm. - IVC sono (time) 0020 Bedside IVC sono: IVC measures (cm) (0.92), IVC collapsed c insp (cm) (complete), Dehydration (est 1-2 liter deficit) PD MEDICAL DECISION MAKING - ED course Complexity details: reviewed old records, reviewed results, re-evaluated patient, considered differential, d/w patient ED course: 58-year-old female with alcoholic pancreatitis and alcoholic cirrhosis with ascites has had 4 admissions to the hospital in the past year for alcoholic pancreatitis. Each of those admissions have been accompanied by severe abdominal pain that is been difficult to control in the emergency department and vomiting and dehydration. She has cleared each of these times with IV hydration and bowel rest and she has not stopped drinking. She has made a lot of statements that she wants to stop drinking. Today appears no different than previously she does have a swollen tender gallbladder mildly elevated lipase mildly elevated LFTs but her Julia criteria do not indicate significant mortality anticipated. Here in the emergency department she is administered intravenous saline Dilaudid Zofran and and a banana bag. She continues to have pain and she is administered morphine as well. Departure - Departure Disposition: ED Place in Observation Clinical Impression: Right upper quadrant abdominal pain, H/O ETOH abuse, Dehydration Pancreatitis, chronic Qualifiers: Pancreatitis type: alcohol induced Qualified Code(s): K86.0 - Alcohol-induced chronic pancreatitis Ascites Qualifiers: Ascites type: due to alcoholic cirrhosis Qualified Code(s): K70.31 - Alcoholic cirrhosis of liver with ascites
[2018-09-20] MEDS ORDERED: THIAMINE 100 MG/1 ML 2 ML MDV ONE (02:29)
[2018-09-20] MEDS ORDERED: MAGNESIUM SULFATE 1 GM/2 ML VIAL ONE (02:37)
[2018-09-20] MEDS ORDERED: MORPHINE 10 MG/ML VIAL IVP STA (02:51)
[2018-09-20] MEDS ORDERED: PROCHLORPERAZINE 10 MG/2 ML VIAL IVP PRN (03:49)
[2018-09-20] MEDS ORDERED: ONDANSETRON 4 MG/2 ML VIAL IVP PRN (03:49)
[2018-09-20] MEDS ORDERED: TEMAZEPAM 15 MG CAPSULE PO PRN (03:49)
[2018-09-20] MEDS ORDERED: ACETAMINOPHEN 1,000 MG/100 ML 100 ML IV PRN (04:26)
[2018-09-20] MEDS: SODIUM CHLORIDE 0.9% 1,000 ML IV SCH ×2 (04:34→09:52)
[2018-09-20] MEDS: HYDROmorphone 0.5 MG/0.5 ML SYRINGE IVP PRN ×3 (04:44→11:33)
[2018-09-20] MEDS: MORPHINE 2 MG/ML CARPUJECT IVP PRN ×3 (05:49→16:33)
--- NOTE | 2018-09-20 06:56 | HISTORY & PHYSICAL EXAMINATION ---
Chief Complaint - Chief Complaint Chief Complaint: Abdominal pain History of Present Illness - Admitted From Admitted From:: Emergency department - History Obtained From Records Reviewed: Emergency department as well as previous visits History obtained from: Patient and Dr. 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 Patient has a history of multiple episodes of acute pancreatitis in the past year, most recently seen in the hospital in May 2018 with similar symptoms having undergone diagnostic workup for acute pancreatitis presents with similar symptoms that began without known precipitant 5 days prior to presenting to the ED. Patient states that she was in her previous state of health, had not had any changes to her diet, no changes to activity level, and suddenly began to have pain Which has been progressively worsening associated with nausea but no vomiti ng, no fevers, no hematochezia. Patient had been drinking about 1 bottle of wine regularly up until about 2 months ago at which point she decreased to 1 glass of wine. She states the last 5 days she has not had anything to eat with the exception of 1 glass of wine last night that she says she took to help ease her anxiety. She has been through this before, and has a referral to a cold roll inspector, and she was hoping she could manage this at home by simply not eating however the pain got so much worse that she had to come into the ED. In the emergency department, patient presented with her same symptoms and workup included lab work showing a only mildly elevated lipase of 70, and without any other major lab abnormalities. Dr. Diaz, ED physician, having reviewed her records saw that she was presenting in a very similar fashion to the acute pancreatitis she has had before performed a bedside ultrasound to make sure she did not have any obstruction, or dilated bile duct on ultrasound which she did not. He also noted that she required a significant amount of pain medication mosley ving first given 1 mg of Dilaudid x2 which did not help very much, progressing to 10 mg of morphine x1 which after 2 hours already started to wear off. Having concluded that she is in acute alcoholic pancreatitis, and seeing that she has previously responded very well within 24-48 hours hospitalist service was contacted to place the patient in observation and pain control. History - Past Medical History Cardiovascular: reports: Coronary artery disease, [place], Murmur Respiratory: reports: COPD, Shortness of breath Neuro: reports: Headaches, Migraines, Tremors Endocrine/Autoimmune: reports: None GI: reports: GERD, Pancreatitis, Cirrhosis, Cholelithiasis, Other BRICK PICKER: reports: None : reports: Nocturia HEENT: reports: Chronic sinusitis Psych: reports: Depression, Anxiety, ADD/ADHD, Post traumatic stress disorder Musculoskeletal: reports: Osteoarthritis, Chronic back pain Derm: reports: None MRSA Hx?: No - Past Surgical History General: reports: Other Ortho: reports: Other /BRICK PICKER: reports: Tubal ligation, Breast implants HEENT: reports: Other - Family & Social History Family History: Mother: , CVA/TIA, Father: , Hyperlipidemia, Hypertension, CT, Sister: Alive and Well (Epilepsy), Brother: Alive and Well, Other family: Cancer, Diabetes, Type 2 Social History Notes: Patient lives in [place], [place] with her . She has 2 children one son and one daughter. 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 She continues to smoke 3 cigarettes a day and states that she does drink alcohol but only once a week and she drinks 1 large glass of wine. She denies any illicit drug use. - Substance History Use: Uses substance without health or social issues: NONE - POLST Patient has POLST: No POLST Status: Full Code Meds/Allgy - Home Medications Home Medications: Ambulatory Orders Medication Instructions Recorded Confirmed Lipase/Protease/Amylase [Bulmaro Rosario 1 each PO TIDWM #90 capsule. 07/13/18 09/20/18 24,000 Units Capsule] Ondansetron Odt [Zofran Odt] 4 mg TL Q6HR PRN #15 tablet 07/13/18 09/20/18 Spironolactone [Aldactone] 50 mg PO DAILY #60 tablet 07/13/18 09/20/18 - Allergies Allergies/Adverse Reactions: Allergies Allergy/AdvReac Type Severity Reaction Status Date / Time ketorolac tromethamine * Allergy Severe Hives Verified 09/19/18 23:58 [From Toradol] Prior Level of Functionality: Independent Exam - Vital Signs Reviewed Vital Signs: Yes Vital Signs: Vital Signs x48h Temp Pulse Pulse Resp BP BP Pulse Ox 09/20/18 05:19 82 12 113/60 94 09/20/18 04:37 37.1 C 93 20 136/73 H 96 09/20/18 04:07 89 18 103/66 96 09/20/18 03:10 93 16 108/65 96 09/20/18 02:42 90 16 127/62 98 09/20/18 01:54 36.4 C L 86 17 120/71 98 09/20/18 01:40 85 15 111/69 100 09/20/18 01:13 87 18 115/71 96 09/20/18 00:54 85 16 130/75 99 09/19/18 23:56 35.9 C L 108 H 18 139/78 H 99 - Physical Exam General Appearance: positive: Mild distress Eyes Bilateral: positive: Normal inspection ENT: positive: ENT inspection nml Neck: positive: Nml inspection Respiratory: positive: Chest non-tender, Breath sounds nml Cardiovascular: positive: Regular rate & rhythm, No gallop, Irregularly irregular, Systolic murmur Peripheral Pulses: positive: 2+ Abdomen: positive: Tenderness, Other (Abdomen is mildly tense without any obvious fluid wave or ascites). negative: Guarding, Rebound, Hepatomegaly, Splenomegaly, Mass, Abnml bowel sounds Skin: positive: Color nml, No rash Extremities: positive: Non-tender, Nml appearance, No pedal edema Neurologic/Psychiatric: positive: Oriented x3, CN's nml (2-12), Motor nml Conclusion/Plan - Problem List (1) Alcoholic pancreatitis Conclusion/Plan: Based on the patient's symptoms and her history, the most likely diagnosis to explain her pain is acute alcoholic pancreatitis. Initial plan is to admit the patient with n.p.o., IV fluids at 200 mL's per hour, and monitor for symptomatic improvement. However, having said that, her pain control has been more difficult this time, requiring 10 mg of morphine and 2 mg of Dilaudid in the urgency department. Initially, I do not think a CT scan is necessary given the consistency with her symptoms and previous evaluations, but if her pain does not improve within 6-8 hours, or if it worsens, and may be necessary to order a CT scan of the abdomen with contrast to ensure that there is no morphologic change or obstruction for which she may need an ERCP and transfer. Qualifiers: Chronicity: acute Acute pancreatitis complication: no infection or necrosis Qualified Code(s): K85.20 - Alcohol induced acute pancreatitis without necrosis or infection (2) Alcohol abuse Conclusion/Plan: According to the patient, she has not had alcohol for 5 days, she may be passed the withdrawal window. But she did have one glass of wine last night in the last 5 days, so this may be enough to restart her withdrawal clock. She does not have evidence of withdrawal at the time of admission and therefore does not need a CIWA protocol, but will start with as needed Ativan and start the protocol if necessary. (3) Right upper quadrant abdominal pain Conclusion/Plan: As stated above, most likely diagnosis is acute alcoholic pancreatitis but would not hesitate to order CT scan with contrast of the abdomen stat if symptoms worsen, or if she fails to improve in 6-8 hours of adequate treatment. - Lab Results Lab results reviewed: Yes Ricci Bones: 09/20/18 00:10 09/20/18 00:10 Core Measures - Anticipated LOS I expect patient to be DC'd or transferred within 96 hours.: Yes - DVT/VTE - Prophylaxis VTE/DVT Device ordered at admit?: Yes
[2018-09-20] MEDS: PANTOPRAZOLE 40 MG VIAL IVP SCH (07:48)
[2018-09-20] MEDS: SODIUM CHLORIDE FLUSH 0.9% 10 ML SYRINGE IVP SCH ×3 (07:49→23:39)
[2018-09-20] MEDS: LORazepam 2 MG/ML VIAL IVP PRN ×5 (07:49→23:36)
[2018-09-20] MEDS ORDERED: MULTIVITAMIN 10 ML, THIAMINE INJ 100 MG, FOLIC ACID INJ 1 MG in SODIUM CHLORIDE 0.9% 1,... IV SCH (09:00)
[2018-09-20] MEDS: POLYETHYLENE GLYCOL 3350 17 GM PACKET PO SCH (09:28)
--- NOTE | 2018-09-20 10:18 | XRAY Report ---
Reason: Positive TB screen Procedure Date: 09/20/2018 Accession Number: [id number] / [id number] Procedure: XR - Chest 2 View X-Ray CPT Code: 01569 FULL RESULT: EXAM: CHEST RADIOGRAPHY EXAM DATE: 09/20/2018 08:29 AM. CLINICAL HISTORY: Positive TB screen. COMPARISON: CHEST 2 VIEW 05/30/2018 10:25 AM. TECHNIQUE: 2 views. FINDINGS: Lungs/Pleura: No focal opacities evident. No pleural effusion. No pneumothorax. Normal volumes. Mediastinum: Heart and mediastinal contours are unremarkable. Other: None. IMPRESSION: No perihilar or intrapulmonary calcific foci to suggest prior tuberculosis and no evidence of active pneumonia. RADIA
[2018-09-20] MEDS: SODIUM CHLORIDE FLUSH 0.9% 10 ML SYRINGE IVP PRN ×4 (18:24→23:54)
[2018-09-20] MEDS: MORPHINE 4 MG/ML VIAL IVP PRN ×3 (19:35→23:53)
[2018-09-21] MEDS: MULTIVITAMIN 10 ML, THIAMINE INJ 100 MG, FOLIC ACID INJ 1 MG in SODIUM CHLORIDE 0.9% 1,... IV SCH (01:51)
[2018-09-21] MEDS: SODIUM CHLORIDE FLUSH 0.9% 10 ML SYRINGE IVP PRN ×5 (01:59→11:44)
[2018-09-21] MEDS: MORPHINE 4 MG/ML VIAL IVP PRN ×3 (04:03→20:32)
[2018-09-21] MEDS: PANTOPRAZOLE 40 MG VIAL IVP SCH (06:10)
[2018-09-21 06:11] LABS: ALBUMIN 3.2 g/dL (3.2-5.5); ALBUMIN/GLOBULIN RATIO 1.2 (1.0-2.2); ALKALINE PHOSPHATASE 87 IU/L (42-121); ALT ALANINE AMINOTRANSFERASE 34 IU/L (10-60); AST ASPARTATE AMINOTRANSFERASE 73 IU/L (10-42); BILIRUBIN,TOTAL 0.8 mg/dL (0.2-1.0); BUN - BLOOD UREA NITROGEN < 5 mg/dL (6-20); CALCIUM 7.6 mg/dL (8.5-10.3); CARBON DIOXIDE - CO2 25 mmol/L (21-32); CHLORIDE 106 mmol/L (101-111); CREATININE 0.4 mg/dL (0.4-1.0); GFR - MDRD 165 (>89); GLUCOSE 109 mg/dL (70-100); LIPASE 144 U/L (22-51); SODIUM 137 mmol/L (135-145); TOTAL PROTEIN 5.8 g/dL (6.7-8.2)
[2018-09-21] MEDS: HYDROmorphone 1 MG/ML CARPUJECT IVP PRN ×5 (07:58→23:02)
[2018-09-21] MEDS: LORazepam 2 MG/ML VIAL IVP PRN ×3 (10:12→19:40)
[2018-09-21] MEDS: POLYETHYLENE GLYCOL 3350 17 GM PACKET PO SCH (10:12)
[2018-09-21] MEDS: SODIUM CHLORIDE FLUSH 0.9% 10 ML SYRINGE IVP SCH ×2 (10:12→16:10)
--- NOTE | 2018-09-21 13:32 | MRI Report ---
Reason: upper quandrant pain Procedure Date: 09/21/2018 Accession Number: [id number] / [id number] Procedure: MRI - MRCP W/O CPT Code: FULL RESULT: EXAM: MR ABDOMEN WITHOUT CONTRAST (MR CHOLANGIOPANCREATOGRAPHY) EXAM DATE: 09/21/2018 10:58 AM. CLINICAL HISTORY: Upper quadrant pain. COMPARISON: MRCP without contrast 02/09/2018 11:04 AM. TECHNIQUE: Multiplanar breath-hold T1 and T2 sequences obtained through the abdomen on an MR scanner. Dedicated 2D and 3D MRCP sequences obtained through the biliary and pancreatic ducts. No intravenous contrast given. FINDINGS: Study quality is degraded by ascites, increased from prior. Lung Bases: The lung bases are clear. Saline breast implants are noted. Liver: The liver has normal size, morphology and signal. No evidence of mass. The intrahepatic bile ducts appear normal. CBD: Common hepatic duct measures 10 mm, similar to prior. The CBD is 10 mm in diameter, dilated. No stones are seen. Gallbladder: Gallbladder is distended without gallstones. Pancreas: The pancreas appears normal with no mass. The pancreatic duct measures 6 mm in diameter with redemonstration of pancreatic divisum with focal dilation of pancreatic duct in the head of up to 8 mm. Spleen: The spleen appears normal. Kidneys and Adrenals: The kidneys appear normal with no mass or hydronephrosis. There are small bilateral cysts in the kidneys. The adrenals appear normal. Bowel: The small bowel and colon appear normal with no inflammation or obstruction. Retroperitoneum: The retroperitoneal structures appear normal with no mass or lymphadenopathy. IMPRESSION: No choledocholithiasis. Moderate ascites. Redemonstration of extrahepatic biliary ductal dilation and pancreatic divisum with pancreatic ductal dilation. Hepatomegaly with steatosis. RADIA
[2018-09-21] MEDS ORDERED: SODIUM CHLORIDE 0.9% 1,000 ML IV ONE (13:34)
[2018-09-21] MEDS: SODIUM CHLORIDE 0.9% 1,000 ML IV SCH ×2 (13:34→20:19)
--- NOTE | 2018-09-21 14:12 | PROVIDER PROGRESS NOTE ---
Subjective - Prog Note Date Prog Note Date: 09/21/18 - Subjective Pt reports feeling: Improved Subjective: pt report she did not have more N/V, but she report she has still abdominal pain, locates at right epigastric. she denies fever, chill, chest pain, cough SOB. she is planned to have MRCP. Current Medications - Current Medications Current Medications: Active Medications Hydromorphone HCl (Dilaudid Inj Carp) 1 mg IVP Q1H PRN PRN Reason: PAIN Last Admin: 09/21/18 11:44 Dose: 1 mg Acetaminophen (Ofirmev) 100 mls @ 400 mls/hr IV Q6HR PRN PRN Reason: PAIN Last Infusion: 09/20/18 05:20 Dose: Infused Multivitamins 10 ml/ Thiamine HCl 100 mg/ Folic Acid 1 mg/Sodium Chloride 1,011.2 mls @ 100 mls/hr IV Q24H [facility] Last Infusion: 09/21/18 13:33 Dose: Infused Sodium Chloride (Normal Saline 0.9%) 1,000 mls @ 150 mls/hr IV .Q6H40M [facility] Last Admin: 09/21/18 13:34 Dose: 150 mls/hr Lorazepam (Ativan Inj (Vial)) 1 mg IVP Q2H PRN PRN Reason: Alcohol Withdrawal Last Admin: 09/21/18 12:44 Dose: 1 mg Morphine Sulfate (Morphine) 4 mg IVP Q2HR PRN PRN Reason: Pain 8 to 10 Last Admin: 09/21/18 04:03 Dose: 4 mg Ondansetron HCl (Zofran Inj) 4 mg IVP Q6HR PRN PRN Reason: Nausea / Vomiting Pantoprazole Sodium (Protonix) 40 mg IVP QDAC [facility] Last Admin: 09/21/18 06:10 Dose: 40 mg Polyethylene Glycol (Miralax) 17 gm PO DAILY [facility] Last Admin: 09/21/18 10:12 Dose: Not Given Prochlorperazine Edisylate (Compazine Inj) 10 mg IVP Q6HR PRN PRN Reason: Nausea / Vomiting Sodium Chloride (Normal Saline Flush 0.9%) 10 ml IVP PRN PRN PRN Reason: NEEDED PER PROVIDER ORDERS Last Admin: 09/21/18 11:44 Dose: 10 ml Sodium Chloride (Normal Saline Flush 0.9%) 10 ml IVP 0100,0900,1700 [facility] Last Admin: 09/21/18 10:12 Dose: 10 ml Temazepam (Restoril) 15 mg PO QPM PRN PRN Reason: Insomnia Objective - Vital Signs/Intake & Output Reviewed Vital Signs: Yes Vital Signs: Vital Signs x48h Temp Pulse Resp BP Pulse Ox 09/21/18 07:36 37.0 C 87 18 106/61 100 Intake & Output: Intake & Output 09/18/18 09/19/18 09/20/18 09/21/18 23:59 23:59 23:59 23:59 Intake Total 6160.2 1811.2 Balance 6160.2 1811.2 - Objective General Appearance: positive: No acute distress, Alert. negative: Lethargic Eyes Bilateral: positive: Normal inspection, PERRL, Conjunctivae nml ENT: positive: ENT inspection nml, Pharynx nml, No signs of dehydration. negative: Purulent nasal drainage, Pharyngeal erythema, Oral lesions Neck: positive: Nml inspection, Thyroid nml, No JVD, Trachea midline. negative: Thyromegaly, Lymphadenopathy (R), Lymphadenopathy (L), Stiff neck, Swelling/bruising, Tracheal deviation Respiratory: positive: Chest non-tender, No respiratory distress, Breath sounds nml. negative: Wheezes, Rales, Rhonchi Cardiovascular: positive: Regular rate & rhythm, No murmur, No gallop. negative: Irregularly irregular, Extrasystoles, Tachycardia, Bradycardia, JVD present, Systolic murmur, Diastolic murmur Peripheral Pulses: 2+ Radial (R), 2+ Radial (L), 2+ Dorsalis pedis (R), 2+ Dorsalis pedis (L) Abdomen: positive: Non-tender, No organomegaly, No distention. negative: Tenderness, Guarding, Rebound Back: positive: Nml inspection, CVA tenderness (R). negative: CVA tenderness (L) Skin: positive: Color nml, No rash, Warm, Dry. negative: Cyanosis, Diaphoresis, Pallor Extremities: positive: Non-tender, Full ROM, Nml appearance. negative: Calf tenderness, Joint swelling, Brian's sign/cords Neurologic/Psychiatric: positive: Oriented x3, Motor nml, Sensation nml, Mood/affect nml. negative: Weakness, Sensory loss, Facial droop, Slurred/abnml speech, Depressed mood/affect - Lab Results Fish Bones: 09/20/18 00:10 09/21/18 05:07 Other Labs: Lab Results x24hrs 09/21/18 Range/Units 05:07 Sodium 137 (135-145) mmol/L Potassium 3.7 (3.5-5.0) mmol/L Chloride 106 (101-111) mmol/L Carbon Dioxide 25 (21-32) mmol/L Anion Gap 6.0 (6-13) BUN < 5 L (6-20) mg/dL Creatinine 0.4 (0.4-1.0) mg/dL Estimated GFR (MDRD) 165 (>89) Glucose 109 H (70-100) mg/dL Calcium 7.6 L (8.5-10.3) mg/dL Total Bilirubin 0.8 (0.2-1.0) mg/dL AST 73 H (10-42) IU/L ALT 34 (10-60) IU/L Alkaline Phosphatase 87 (42-121) IU/L Total Protein 5.8 L (6.7-8.2) g/dL Albumin 3.2 (3.2-5.5) g/dL Globulin 2.6 (2.1-4.2) g/dL Albumin/Globulin Ratio 1.2 (1.0-2.2) Lipase 144 H (22-51) U/L ABX Reporting Has patient been on IV antibiotics over the past 48 hours?: No Assessment/Plan - Problem List (1) Alcoholic pancreatitis Impression: pt report she feel better, N/V controlled. but pt report she still has abdominal pain. order MRCP, is pending continue IVF of NS continue pain control pt request to have diet, start clear liquid diet, advanced as tolerate. continue lab monitor (2) Alcohol abuse Conclusion/Plan: pt report she did have alcohol intake before she was admitted. pt has hx of alcohol abuse. It seems pt did not present alcohol withdrawal symptoms at this time, closely monitor, if need CIWA. continue Ativan PRN continue multiple vit (3) Right upper quadrant abdominal pain Conclusion/Plan: pt continue to have abdominal pain. pt has hx of pancreas divisum, order MRCP, will followup continue pain control Qualifiers: Chronicity: acute Acute pancreatitis complication: no infection or necrosis Qualified Code(s): K85.20 - Alcohol induced acute pancreatitis without necrosis or infection
[2018-09-22] MEDS: LORazepam 2 MG/ML VIAL IVP PRN ×2 (00:55→03:36)
[2018-09-22] MEDS: HYDROmorphone 1 MG/ML CARPUJECT IVP PRN ×3 (01:01→07:37)
[2018-09-22] MEDS ORDERED: INSULIN REGULAR HUMAN 100 UNIT/1 ML 10 ML MDV ONE (02:52)
[2018-09-22] MEDS: MULTIVITAMIN 10 ML, THIAMINE INJ 100 MG, FOLIC ACID INJ 1 MG in SODIUM CHLORIDE 0.9% 1,... IV SCH (02:55)
[2018-09-22] MEDS: SODIUM CHLORIDE FLUSH 0.9% 10 ML SYRINGE IVP PRN ×2 (03:36→07:06)
[2018-09-22 05:42] LABS: BASOPHILS % (AUTO) 0.5 %; EOSINOPHILS # (AUTO) 0.1 10^3/uL (0.0-0.7); HGB - HEMOGLOBIN 11.1 g/dL (12.0-16.0); LYMPHOCYTES # (AUTO) 1.1 10^3/uL (1.5-3.5); LYMPHOCYTES % (AUTO) 31.7 %; MEAN CORPUSCULAR HEMOGLOBIN 33.9 pg (27.0-31.0); MEAN CORPUSCULAR HGB CONC 33.1 g/dL (32.0-36.0); MEAN CORPUSCULAR VOLUME 102.5 fL (81.0-99.0); MEAN PLATELET VOLUME 7.2 fL (7.9-10.8); MONOCYTES # (AUTO) 0.3 10^3/uL (0.0-1.0); NEUTROPHILS # (AUTO) 1.9 10^3/uL (1.5-6.6); NEUTROPHILS % (AUTO) 55.8 %; PLT - PLATELET COUNT 113 10^3/uL (130-450); RED BLOOD COUNT 3.27 10^6/uL (4.20-5.40); RED CELL DISTRIBUTION WIDTH 16.5 % (12.0-15.0); WHITE BLOOD COUNT 3.4 x10^3/uL (4.8-10.8)
[2018-09-22 05:52] LABS: ALBUMIN 3.1 g/dL (3.2-5.5); ALBUMIN/GLOBULIN RATIO 1.1 (1.0-2.2); BILIRUBIN,TOTAL 0.7 mg/dL (0.2-1.0); CALCIUM 8.2 mg/dL (8.5-10.3); CREATININE 0.3 mg/dL (0.4-1.0); TOTAL PROTEIN 5.8 g/dL (6.7-8.2)
[2018-09-22] MEDS: PANTOPRAZOLE 40 MG VIAL IVP SCH (07:05)
[2018-09-22] MEDS: SODIUM CHLORIDE FLUSH 0.9% 10 ML SYRINGE IVP SCH (07:11)
[2018-09-22] MEDS ORDERED: SODIUM CHLORIDE 0.9% 1,000 ML IV SCH (07:21)
[2018-09-22] MEDS ORDERED: LIPASE/PROTEASE/AMYLASE CAPSULE PO SCH (08:00)
[2018-09-22 08:15] VITALS: BP 127/54
[2018-09-22] MEDS: POLYETHYLENE GLYCOL 3350 17 GM PACKET PO SCH (08:41)
[2018-09-22] MEDS ORDERED: SPIRONOLACTONE 25 MG TABLET PO SCH (09:00)
[2018-09-22] MEDS: MORPHINE 4 MG/ML VIAL IVP PRN (09:13)
--- NOTE | 2018-09-22 10:38 | Discharge Plan ---
Discharge Plan Disposition: Home, Self Care Condition: Poor Prescriptions: Multivitamin [Multiple Vitamins] 1 each PO DAILY #10 tablet oxyCODONE [Roxicodone] 10 mg PO Q6H PRN #30 tablet PRN Reason: Pain Diet: Regular Activity Restrictions: Activity as Tolerated Shower Restrictions: No (fall precaution) Instruction Topics: Oxycodone tablets or capsules, Pancreatitis, ED Withdrawal Alcohol, Withdrawal Alcohol What Expect Additional Instructions or Follow Up instructions: You may followup your PCP in one week, followup chain repairer as out-pt. You are encouraged to quit your alcohol. Should your symptoms return or worsen, you may present ER or call 911 or your PCP for help No Smoking: If you smoke, Please STOP! Call for help. Follow-up with: Phyllis Daugherty DNP [Primary Care Provider] -
--- NOTE | 2018-09-22 10:46 | DISCHARGE SUMMARY ---
Discharge Summary Discharge Date: 09/22/18 Discharging Provider: ARSHAD Primary Care Provider: Phyllis Smith Condition at Discharge: Poor Discharge Disposition: 01 Home, Self Care Discharge Facility Name: home - DIAGNOSES Admission Diagnoses: (1) Alcoholic pancreatitis (2) Alcohol abuse (3) Right upper quadrant abdominal pain Discharge Diagnoses with Status of Each Condition: 1) Alcoholic pancreatitis Lipase is down to 90. pt report she tolerate the regular diet, no N/V or diarrhea. her pain is controlled. she had hx of chronic pain issue. advise pt quit alcohol. she state she will quit. Her MRCP still reveal pancreas divisum as her baseline without significant new findings (2) Alcohol abuse discuss with pt about her alcohol abuse. she state she will quit alcohol abuse (3) Right upper quadrant abdominal pain better controlled. discuss with pt about her alcohol abuse and quit alcohol. MRCP still reveal pancreas divisum as her baseline. (4) chronic pain pt report she had hx of chronic pain, followup PCP and pain management. - HPI History of Present Illness: refer from Dr. 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 Patient has a history of multiple episodes of acute pancreatitis in the past year, most recently seen in the hospital in May 2018 with similar symptoms having undergone diagnostic workup for acute pancreatitis presents with similar symptoms that began without known precipitant 5 days prior to presenting to the ED. Patient states that she was in her previous state of health, had not had any changes to her diet, no changes to activity level, and suddenly began to have pain Which has been progressively worsening associated with nausea but no vomiting, no fevers, no hematochezia. Patient had been drinking about 1 bottle of wine regularly up until about 2 months ago at which point she decreased to 1 glass of wine. She states the last 5 days she has not had anything to eat with the exception of 1 glass of wine last night that she says she took to help ease her anxiety. She has been through this before, and has a referral to a certified hyperbaric technician, and she was hoping she could manage this at home by simply not eating however the pain got so much worse that she had to come into the ED. In the emergency department, patient presented with her same symptoms and workup included lab work showing a only mildly elevated lipase of 70, and without any other major lab abnormalities. Dr. Diaz, ED physician, having reviewed her records saw that she was presenting in a very similar fashion to the acute pancreatitis she has had before performed a bedside ultrasound to make sure she did not have any obstruction, or dilated bile duct on ultrasound which she did not. He also noted that she required a significant amount of pain medication having first given 1 mg of Dilaudid x2 which did not help very much, progressing to 10 mg of morphine x1 which after 2 hours already started to wear off. Having concluded that she is in acute alcoholic pancreatitis, and seeing that she has previously responded very well within 24-48 hours hospitalist service was contacted to place the patient in observation and pain control. - HOSPITAL COURSE Hospital Course: pt was admitted for N/V, and upper right quadrant pain. pt has hx of alcohol abuse and chronic pain. pt report she did drink lots of alcohol recently. pt also had hx of pancreas divisum, her lab test lipase was very slightly elevated at 90. pt was treated bowel rest, IVF of NS, pain control, anti-emesis. pt also had MRCP. After treatment, pt can tolerate regular, she report her pain is good controlled, she request to be d/c home. pt's MRCP has no significant new findings. pt is advised to quit alcohol. pt state she will and understand the importance for her to quit alcohol. - ALLERGIES Allergies/Adverse Reactions: Allergies Allergy/AdvReac Type Severity Reaction Status Date / Time ketorolac tromethamine * Allergy Severe Hives Verified 09/19/18 23:58 [From Toradol] - MEDICATIONS Home Medications: Ambulatory Orders Medication Instructions Recorded Confirmed Lipase/Protease/Amylase [Bulmaro Rosario 1 each PO TIDWM #90 capsule. 07/13/18 09/20/18 24,000 Units Capsule] Ondansetron Odt [Zofran Odt] 4 mg TL Q6HR PRN #15 tablet 07/13/18 09/20/18 Spironolactone [Aldactone] 50 mg PO DAILY #60 tablet 07/13/18 09/20/18 Multivitamin [Multiple Vitamins] 1 each PO DAILY #10 tablet 09/22/18 oxyCODONE [Roxicodone] 10 mg PO Q6H PRN #30 tablet 09/22/18 - PHYSICAL EXAM AT DISCHARGE General Appearance: positive: No acute distress, Alert. negative: Lethargic Eyes Bilateral: positive: Normal inspection, PERRL, No lid inflammation, Conjunctivae nml ENT: positive: ENT inspection nml, Pharynx nml, No signs of dehydration. negative: Purulent nasal drainage, Pharyngeal erythema, Oral lesions Neck: positive: Nml inspection, Thyroid nml, No JVD, Trachea midline. negative: Thyromegaly, Lymphadenopathy (R), Lymphadenopathy (L), Stiff neck, Swelling/bruising, Tracheal deviation Respiratory: positive: Chest non-tender, No respiratory distress, Breath sounds nml. negative: Wheezes, Rales, Rhonchi Cardiovascular: positive: Regular rate & rhythm, No murmur, No gallop. negative: Irregularly irregular, Extrasystoles, Tachycardia, Bradycardia, JVD present, Systolic murmur, Diastolic murmur Peripheral Pulses: positive: 2+ Abdomen: positive: Non-tender, No organomegaly, Nml bowel sounds, No distention. negative: Tenderness, Guarding, Rebound Back: positive: Nml inspection. negative: CVA tenderness (R), CVA tenderness (L) Skin: positive: Color nml, No rash, Warm, Dry. negative: Cyanosis, Diaphoresis, Pallor Extremities: positive: Non-tender, Full ROM, Nml appearance. negative: Calf tenderness, Joint swelling, Brian's sign/cords Neurologic/Psychiatric: positive: Oriented x3, Motor nml, Sensation nml, Mood/affect nml. negative: Weakness, Sensory loss, Facial droop, Slurred/abnml speech, Depressed mood/affect - LABS Result Diagrams: 09/22/18 05:20 09/22/18 05:20 - FOLLOW UP Follow Up: You may followup your PCP in one week, followup certified hyperbaric technician as out-pt for your pancreas divisum. You are encouraged to quit your alcohol. Should your symptoms return or worsen, you may present ER or call 911 or your PCP for help - TIME SPENT Time Spent in Discharge (Minutes): 50
== END 2018-09-22 11:43 | disposition home or self-care (01) ==
LOC: ED 23:53 → OBS 09-20 03:49
PROVIDERS: ADMIT Family Medicine Sports Medicine; ATTEND Nurse Practitioner Gerontology
DX: K85.20 Alcohol induced acute pancreatitis without necrosis or infection (principal); F10.10 Alcohol abuse, uncomplicated; R10.11 Right upper quadrant pain; G89.29 Other chronic pain; K21.9 Gastro-esophageal reflux disease without esophagitis; F17.210 Nicotine dependence, cigarettes, uncomplicated; J44.9 Chronic obstructive pulmonary disease, unspecified; R63.0 Anorexia; I25.2 Old myocardial infarction; I25.10 Atherosclerotic heart disease of native coronary artery without angina pectoris; K74.60 Unspecified cirrhosis of liver
CPT/HCPCS: 36415; 71046; 74181; 80053; 80306; 80320; 81003; 82150; 83690; 85025; 85610; 96365; 96367; 96375; 96376; 99284; A9270; G0378; J0131; J1170; J2060; J2270; J3411; 81001; 87086; 99285

== ENCOUNTER 2018-12-06 05:04 | Outpatient (CLI) | payer MEDICAID | END 2018-12-06 05:05 | disposition critical access hospital (66) | LOC: EMS 05:04 | PROVIDERS: ATTEND Surgery | DX: R10.9 Unspecified abdominal pain (principal); R05 Cough | CPT/HCPCS: A0425; A0429; A0999 ==

== ENCOUNTER 2018-12-06 05:10 | Inpatient (IN) | payer MEDICAID ==
[2018-12-06] MEDS ORDERED: LORazepam 2 MG/ML VIAL IVP STA ×2 (05:34→06:46)
[2018-12-06] MEDS ORDERED: HALOPERIDOL 5 MG/ML VIAL IVP ONE (05:34)
[2018-12-06] MEDS ORDERED: SODIUM CHLORIDE 0.9% 1,000 ML IV ONE ×3 (05:35→06:15)
--- NOTE | 2018-12-06 05:54 | ED Physician Documentation ---
PD HPI ABD PAIN - Stated complaint Stated Complaint: ABD PAIN - Chief complaint Chief Complaint: Abd Pain - History obtained from History obtained from: Patient - History of Present Illness Timing - onset: How many weeks ago (2) Timing - duration: Weeks (2) Timing - details: Gradual onset Pain level max: 6 Pain level now: 6 Severity Comments: moderate Quality: Cramping Location: RUQ Radiation: No: Chest, Left flank, Right flank Improved by: No: Eating Worsened by: Eating Associated symptoms: Nausea, Vomiting Similar symptoms before: Diagnosis (Recurrent pancreatitis) Review of Systems Ten Systems: 10 systems reviewed and negative Constitutional: reports: Reviewed and negative Eyes: reports: Reviewed and negative Ears: reports: Reviewed and negative Nose: reports: Reviewed and negative Throat: reports: Reviewed and negative Cardiac: reports: Reviewed and negative Respiratory: reports: Reviewed and negative GI: reports: Reviewed and negative : reports: Reviewed and negative Skin: reports: Reviewed and negative Musculoskeletal: reports: Reviewed and negative Neurologic: reports: Reviewed and negative Psychiatric: reports: Reviewed and negative Endocrine: reports: Reviewed and negative Immunocompromised: reports: Reviewed and negative PD PAST MEDICAL HISTORY - Past Medical History Cardiovascular: Coronary artery disease, AR, Murmur Respiratory: COPD, Shortness of breath Neuro: Headaches, Migraines, Tremors Endocrine/Autoimmune: None GI: GERD, Pancreatitis, Cirrhosis, Cholelithiasis, Other 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 07/13/18 09/20/18 24,000 Units Capsule] Ondansetron Odt [Zofran Odt] 4 mg TL Q6HR PRN #15 tablet 07/13/18 09/20/18 Spironolactone [Aldactone] 50 mg PO DAILY #60 tablet 07/13/18 09/20/18 Multivitamin [Multiple Vitamins] 1 each PO DAILY #10 tablet 09/22/18 oxyCODONE [Roxicodone] 10 mg PO Q6H PRN #30 tablet 09/22/18 - Allergies Allergies/Adverse Reactions: Allergies Allergy/AdvReac Type Severity Reaction Status Date / Time ketorolac tromethamine * Allergy Severe Hives Verified 12/06/18 05:14 [From Toradol] - Social History Does the pt smoke?: Yes Smoking Status: Current every day smoker Does the pt drink ETOH?: No Does the pt have substance abuse?: No - Family History Family history: reports: Other (Reviewed and not pertinent) - Immunizations Immunizations are current?: No Immunizations: TDAP >10years/unknown - POLST Patient has POLST: No POLST Status: Full Code PD ED PE NORMAL - Vitals Vital signs reviewed: Yes - General General: Alert and oriented X 3, No acute distress - HEENT HEENT: PERRL - Neck Neck: Supple, no meningeal sign - Cardiac Cardiac: RRR, No murmur - Respiratory Respiratory: Clear bilaterally - Abdomen Abdomen: Normal bowel sounds, Soft, Non distended, Other (Generalized abdominal tenderness with no guarding read) - Derm Derm: Warm and dry - Extremities Extremities: No deformity - Neuro Neuro: Alert and oriented X 3 - Psych Psych: Normal mood, Normal affect Results - Vitals Vitals: Vital Signs - 24 hr 12/06/18 12/06/18 12/06/18 05:11 05:45 06:05 Temperature 37.1 C Heart Rate 98 90 102 H Respiratory 20 18 17 Rate Blood Pressure 131/70 H 125/98 H 130/76 O2 Saturation 99 99 92 Oxygen O2 Source Room air - EKG (time done) 0541 Rate: Rate (enter#) (87) Rhythm: NSR [place]: Normal Intervals: Normal NV. No: Prolonged QT QRS: Normal Ischemia: Normal ST segments. No: T wave inversion - Labs Labs: Laboratory Tests 12/06/18 12/06/18 12/06/18 05:53 05:53 05:53 WBC 4.9 RBC 3.35 L Hgb 11.2 L Hct 32.7 L MCV 97.6 MCH 33.4 H MCHC 34.2 RDW 22.3 H Plt Count 124 L MPV 7.0 L Neut # (Auto) 3.8 Lymph # (Auto) 0.5 L [place] # (Auto) 0.6 Eos # (Auto) 0.0 Baso # (Auto) 0.0 Absolute Nucleated RBC 0.01 Nucleated RBC % 0.2 Sodium 129 L Potassium 3.2 L Chloride 88 L Carbon Dioxide 23 Anion Gap 18.0 H BUN 8 Creatinine 0.3 L Estimated GFR (MDRD) 229 Glucose 128 H Lactic Acid Calcium 8.6 Total Bilirubin 4.8 H AST 420 H ALT 120 H Alkaline Phosphatase 286 H Troponin I < 0.04 Total Protein 6.4 L Albumin 3.5 Globulin 2.9 Albumin/Globulin Ratio 1.2 Lipase 190 H Ethyl Alcohol 12/06/18 12/06/18 05:53 05:53 WBC RBC Hgb Hct MCV MCH MCHC RDW Plt Count MPV Neut # (Auto) Lymph # (Auto) [place] # (Auto) Eos # (Auto) Baso # (Auto) Absolute Nucleated RBC Nucleated RBC % Sodium Potassium Chloride Carbon Dioxide Anion Gap BUN Creatinine Estimated GFR (MDRD) Glucose Lactic Acid 3.9 H* Calcium Total Bilirubin AST ALT Alkaline Phosphatase Troponin I Total Protein Albumin Globulin Albumin/Globulin Ratio Lipase Ethyl Alcohol 20.5 PD MEDICAL DECISION MAKING - ED course Complexity details: reviewed old records, reviewed results, re-evaluated patient, considered differential, d/w patient ED course: 58-year-old female with history of recurrent pancreatitis and recent daily alcohol use presents with right upper quadrant abdominal pain. Labs notable for elevated LFTs and elevated lipase. Patient unable to p.o. Patient's lactate is elevated. Patient given IV fluids, broad-spectrum antibiotics, signed out to incoming physician with CT abdomen pelvis pending. Departure - Departure Clinical Impression: Hepatitis, Lactic acidosis, Hypokalemia Acute pancreatitis Qualifiers: Pancreatitis type: alcohol induced Acute pancreatitis complication: unspecified Qualified Code(s): K85.20 - Alcohol induced acute pancreatitis without necrosis or infection
[2018-12-06] MEDS ORDERED: IOPAMIDOL-300 100 ML VIAL ONE (06:02)
[2018-12-06] MEDS ORDERED: DICYCLOMINE 10 MG CAPSULE PO STA (06:08)
[2018-12-06] MEDS ORDERED: METOCLOPRAMIDE 10 MG/2 ML VIAL IVP STA (06:08)
[2018-12-06 06:14] LABS: ALBUMIN 3.5 g/dL (3.2-5.5); ALBUMIN/GLOBULIN RATIO 1.2 (1.0-2.2); BILIRUBIN,TOTAL 4.8 mg/dL (0.2-1.0); CALCIUM 8.6 mg/dL (8.5-10.3); CREATININE 0.3 mg/dL (0.4-1.0); TOTAL PROTEIN 6.4 g/dL (6.7-8.2)
[2018-12-06 06:17] LABS: BASOPHILS % (AUTO) 0.6 %; EOSINOPHILS % (AUTO) 0.2 %; HGB - HEMOGLOBIN 11.2 g/dL (12.0-16.0); LYMPHOCYTES # (AUTO) 0.5 10^3/uL (1.5-3.5); LYMPHOCYTES % (AUTO) 9.8 %; MEAN CORPUSCULAR HEMOGLOBIN 33.4 pg (27.0-31.0); MEAN CORPUSCULAR HGB CONC 34.2 g/dL (32.0-36.0); MEAN CORPUSCULAR VOLUME 97.6 fL (81.0-99.0); MONOCYTES # (AUTO) 0.6 10^3/uL (0.0-1.0); MONOCYTES % (AUTO) 11.9 %; NEUTROPHILS # (AUTO) 3.8 10^3/uL (1.5-6.6); NEUTROPHILS % (AUTO) 77.5 %; PLT - PLATELET COUNT 124 10^3/uL (130-450); RED BLOOD COUNT 3.35 10^6/uL (4.20-5.40); RED CELL DISTRIBUTION WIDTH 22.3 % (12.0-15.0); WHITE BLOOD COUNT 4.9 x10^3/uL (4.8-10.8)
[2018-12-06] MEDS ORDERED: MORPHINE 2 MG/ML SYRINGE IVP STA (06:17)
[2018-12-06] MEDS ORDERED: PIPERACILLIN/TAZOBACTAM 4.5 GM in SODIUM CHLORIDE 0.9% MINIBAG 100 ML IV STA (06:18)
[2018-12-06] MEDS ORDERED: IOPAMIDOL-300 100 ML VIAL IVP ONE (06:34)
[2018-12-06] MEDS ORDERED: POTASSIUM CHLOR 20 MEQ/100 ML 20 MEQ/100 ML BAG IV ONE (06:45)
[2018-12-06] MEDS ORDERED: MAGNESIUM SULFATE 2 GRAM 2 GM/50 ML BAG IV ONE (06:46)
[2018-12-06 06:51] LABS: MUDS CUTOFF CONCENTRATIONS CUTOFF CONC BELOW:
--- NOTE | 2018-12-06 06:54 | CT Report ---
Reason: abd pain, h/o pancreatitis Procedure Date: 12/06/2018 Accession Number: [id number] / [id number] Procedure: CT - Abdomen/Pelvis W CPT Code: FULL RESULT: EXAM: CT ABDOMEN AND PELVIS EXAM DATE: 12/06/2018 06:35 AM. CLINICAL HISTORY: Abd pain, h/o pancreatitis. COMPARISONS: ABDOMEN/PELVIS W/ 05/30/2018 12:57 PM. TECHNIQUE: Routine helical CT imaging was performed through the abdomen and pelvis. IV contrast: ISOVUE 300 100mL. Enteric contrast: No. Reconstructions: Coronal and sagittal. In accordance with CT protocol optimization, one or more of the following dose reduction techniques were utilized for this exam: automated exposure control, adjustment of mA and/or KV based on patient size, or use of iterative reconstructive technique. FINDINGS: Lung Bases: Unremarkable. Liver: Diffuse decrease in hepatic attenuation. Stable recanalization of the umbilical vein, compatible with portal hypertension. No definite focal hepatic lesion. Gallbladder/Bile Ducts: Unremarkable. Spleen: Normal. Pancreas: Stable appearance of the pancreas. No evident peripancreatic inflammation to suggest pancreatitis. Adrenal Glands: Normal. Kidneys: 2 mm nonobstructing calculus in the upper pole of the left kidney. Peritoneal Cavity/Bowel: Decreased volume of ascites. No evidence of bowel obstruction. No free intraperitoneal gas. Pelvic Organs: Normal. The bladder and visualized pelvic organs are within normal limits. Vasculature: No aneurysms or other significant abnormality. Bones: No significant abnormality. Other: None. IMPRESSION: Heterogeneous liver. Interval decrease in volume of ascites. Stable recanalization of the umbilical vein. No evidence of bowel obstruction or perforation. No localized peripancreatic inflammation appreciated. RADIA
[2018-12-06 06:55] LABS: BILIRUBIN,URINE NEGATIVE (NEGATIVE); GLUCOSE, URINE (UA) NEGATIVE (NEGATIVE); KETONES,URINE (UA) NEGATIVE (NEGATIVE); LEUKOCYTE ESTERASE, URINE NEGATIVE (NEGATIVE); NITRITE,URINE NEGATIVE (NEGATIVE); OCCULT BLOOD,URINE NEGATIVE (NEGATIVE); PROTEIN,URINE NEGATIVE (NEGATIVE); UROBILINOGEN,URINE 0.2 (NORMAL) E.U./dL (NORMAL)
[2018-12-06 07:09] LABS: CLARITY,URINE HAZY (CLEAR)
[2018-12-06 07:12] LABS: AMPHETAMINE SCREEN,URINE NEGATIVE (NEGATIVE); BENZODIAZEPINES SCREEN, URINE NEGATIVE (NEGATIVE); COCAINE SCREEN URINE NEGATIVE (NEGATIVE); METHADONE SCREEN, URINE NEGATIVE (NEGATIVE); METHAMPHETAMINES SCREEN, URINE NEGATIVE (NEGATIVE); OPIATE SCREEN, URINE NEGATIVE (NEGATIVE); OXYCODONE SCREEN, URINE NEGATIVE (NEGATIVE); PROPOXYPHENE SCREEN, URINE NEGATIVE (NEGATIVE); TRICYCLIC ANTIDEPRESSANT,URINE NEGATIVE (NEGATIVE)
[2018-12-06 07:13] LABS: BACTERIA,URINE Few /HPF (None Seen); RBC,URINE 0-5 /HPF (0-5); SQUAMOUS EPITHELIAL CELL,UR MOD Squamous (<= Few)
[2018-12-06] MEDS: POTASSIUM CHLOR 10 MEQ/100 ML 10 MEQ/100 ML BAG IV SCH ×2 (08:11→10:24)
[2018-12-06] MEDS ORDERED: ONDANSETRON 4 MG/2 ML VIAL IVP PRN (08:33)
[2018-12-06] MEDS ORDERED: ZOLPIDEM 5 MG TABLET PO PRN (08:33)
[2018-12-06] MEDS ORDERED: ACETAMINOPHEN 325 MG TABLET PO PRN (08:33)
[2018-12-06] MEDS ORDERED: PROCHLORPERAZINE 10 MG/2 ML VIAL IVP PRN (08:33)
[2018-12-06] MEDS ORDERED: POTASSIUM CHLORIDE 20 MEQ TABLET PO STA (08:44)
[2018-12-06] MEDS ORDERED: SODIUM CHLORIDE 0.9% 1,000 ML IV SCH (09:00)
[2018-12-06 09:04] LABS: INR 1.6 (0.8-1.2); PT - PROTHROMBIN TIME 17.8 secs (9.9-12.6)
--- NOTE | 2018-12-06 09:29 | XRAY Report ---
Reason: cough, fever at home Procedure Date: 12/06/2018 Accession Number: [id number] / [id number] Procedure: XR - Chest 2 View X-Ray CPT Code: 12279 FULL RESULT: EXAM: CHEST RADIOGRAPHY EXAM DATE: 12/06/2018 09:13 AM. CLINICAL HISTORY: Cough, fever at home. Pancreatitis. COMPARISON: CHEST 2 VIEW 09/20/2018 8:12 AM. TECHNIQUE: 2 views. FINDINGS: Lungs/Pleura: No focal opacities evident. No pleural effusion. No pneumothorax. Normal volumes. Mediastinum: Heart and mediastinal contours are unremarkable. Other: Mild right hemidiaphragm elevation. IMPRESSION: No consolidation evident. RADIA
[2018-12-06] MEDS: SODIUM CHLORIDE 0.9% 1,000 ML IV SCH ×2 (10:09→18:22)
[2018-12-06] MEDS: NICOTINE 14 MG PATCH TOP SCH (10:10)
[2018-12-06] MEDS: SODIUM CHLORIDE FLUSH 0.9% 10 ML SYRINGE IVP SCH ×3 (10:10→23:49)
[2018-12-06] MEDS: MORPHINE 2 MG/ML SYRINGE IVP PRN ×6 (10:10→23:49)
[2018-12-06] MEDS: POLYETHYLENE GLYCOL 3350 17 GM PACKET PO SCH (10:14)
--- NOTE | 2018-12-06 10:21 | HISTORY & PHYSICAL EXAMINATION ---
Chief Complaint - Chief Complaint Chief Complaint: abdominal pain History of Present Illness - History of Present Illness HPI Comment/Other: Lee Ann Jones is a 58-year old female with a past medical history significant of alcohol dependence, tobacco dependence, opioid dependence, anxiety, clausterphobia, osteoarthritis, depression, PTSD, ADD, CAD, NM, migraines, tremors, pancreatitis, and cholelithiasis, who came to the ED with a primary complaint of abdominal pain. She report she just drunk one cup of alcohol on last night, then she became abdominal pain. Pt is sharp, located on right upper and middle quadrant of abdomen, which was the similar as her previous admission complaints. Pt was admitted to our facility numerous times for pancreatitis as well as acute alcohol hepatitis and alcoholic liver disease with ascites. She drinks approximately a bottle of wine a day. pt also complain of cough with yellowish sputum. CXR reveals unremarkable. CT of abdomen and pelvis reveals heterogeneous liver, interval decrease in volume of ascites. stable recanalization of umbilical vein. No SBO or perforation, no localized peripancreatic inflammation. Pt has positive level of alcohol in UDS, elevated lactic acid, significant elevated total bililubin, and liver enzyme, and slightly elevated Lipase 190. pt also report lower degree fever at home. pt denies chest chest pain, headache, shortness of breath, nausea, vomiting or diarrhea. pt is admitted for recurrent acute alcoholic pancreatitis. History - Past Medical History Cardiovascular: reports: Coronary artery disease, NM, Murmur Respiratory: reports: Shortness of breath Neuro: reports: Headaches, Migraines, Tremors Endocrine/Autoimmune: reports: None GI: reports: GERD, Pancreatitis, Cirrhosis, Cholelithiasis, Other TALENT ANALYST: reports: None : reports: Nocturia HEENT: reports: Chronic sinusitis Psych: reports: Depression, Anxiety, ADD/ADHD, Post traumatic stress disorder Musculoskeletal: reports: Osteoarthritis, Chronic back pain Derm: reports: None MRSA Hx?: No - Past Surgical History General: reports: Other Ortho: reports: Other /TALENT ANALYST: reports: Tubal ligation, Breast implants HEENT: reports: Other - Family & Social History Family History: Mother: , CVA/TIA, Father: , Hyperlipidemia, Hypertension, NM, Sister: Alive and Well (Epilepsy), Brother: Alive and Well, Other family: Cancer, Diabetes, Type 2 Social History Notes: Patient lives in [place], [place] with her . She has 2 children one son and one daughter. 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 She continues to smoke 3 cigarettes a day and states that she does drink alcohol but only once a week and she drinks 1 large glass of wine. She denies any illicit drug use. - Substance History Use: Uses substance without health or social issues: NONE - POLST Patient has POLST: No POLST Status: Full Code Meds/Allgy - Home Medications Home Medications: Ambulatory Orders Medication Instructions Recorded Confirmed Lipase/Protease/Amylase [Bulmaro Rosario 1 each PO TIDWM #90 capsule. 07/13/18 12/06/18 24,000 Units Capsule] Ondansetron Odt [Zofran Odt] 4 mg TL Q6HR PRN #15 tablet 07/13/18 12/06/18 Multivitamin [Multiple Vitamins] 1 each PO DAILY #10 tablet 09/22/18 12/06/18 Spironolactone [Aldactone] 25 mg PO BID 12/06/18 12/06/18 - Allergies Allergies/Adverse Reactions: Allergies Allergy/AdvReac Type Severity Reaction Status Date / Time ketorolac tromethamine * Allergy Severe Hives Verified 12/06/18 05:14 [From Toradol] Review of Systems - Constitutional Constitutional: reports: Fever. denies: Fatigue, Chills, Malaise, Weakness, Poor appetite, Diaphoresis, Night sweats - Eyes Eyes: denies: Pain, Irritation, Amaurosis, Blurred vision, Spots in vision, Field loss, Vision loss, Dipolpia - Ears, Nose & Throat Ears, Nose & Throat: denies: Ear pain, Hearing loss, Tinnitus, Vertigo, Nasal p ain, Nasal discharge, Nosebleeds, Nasal obstruction, Postnasal drainage, Dentures, Sore throat, Hoarseness, Mouth lesions, Bleeding gums - Cardiovascular Cariovascular: denies: Irregular heart rate, Palpitations, Chest pain, Edema, Syncope, Exertional dyspnea, Decr. exercise tolerance - Respiratory Respiratory: reports: Cough, Sputum production. denies: Wheezing, Snoring, Hemoptysis, Orthopnea, SOB at rest, SOB with exertion - Gastrointestinal Gastrointestinal: reports: Abdominal pain. denies: Abdominal distention, Constipation, Diarrhea, Change in bowel habits, Rectal bleeding, Black stools, Bloody stools, Nausea, Vomiting, Bile emesis, Lorenzo blood emesis, Coffee grounds emesis, Reflux/heartburn - Genitourinary Genitourinary: denies: Dysuria, Frequency, Urgency, Hematuria, Incontinence, Flank pain, Nocturia, Urethral discharge - Musculoskeletal Musculoskeletal: denies: Muscle pain, Back pain, Muscle aches, Stiffness, Limited range of motion, Muscle weakness, Gout, Joint pain - Integumentary Integumentary: denies: Rash, Pruritis, Lesions, Lumps, Acne, Pigment changes, Nail changes - Neurological Neurological: denies: General weakness, Focal weakness, Headache, Dizziness, Numbness, Memory problems, Pre-existing deficit, Abnormal gait, Seizures, Incoordination, Slurred speech - Psychiatric Psychiatric: denies: Depression, Anxiety, Suicidal, Delusions, Hallucinations, Homicidal - Endocrine Endocrine: denies: Polyuria, Polydypsia, Polyphagia, Intolerance to cold - Hematologic/Lymphatic Hematologic/Lymphatic: denies: Anemia, Bruising, Petechiae, Blood clots, Lymphadenopathy, Bleeding tendencies Exam - Vital Signs Reviewed Vital Signs: Yes Vital Signs: Vital Signs x48h Temp Pulse Pulse Resp BP BP Pulse Ox 12/06/18 09:44 37.2 C 84 20 108/66 99 12/06/18 09:28 94 12/06/18 08:11 94 16 104/68 98 12/06/18 07:30 87 15 106/66 96 12/06/18 07:19 89 15 113/70 92 12/06/18 06:47 36.9 C 98 16 117/68 96 12/06/18 06:05 102 H 17 130/76 92 12/06/18 05:45 90 18 125/98 H 99 12/06/18 05:11 37.1 C 98 20 131/70 H 99 - Physical Exam General Appearance: positive: No acute distress, Alert. negative: Lethargic Eyes Bilateral: positive: Normal inspection, PERRL, No lid inflammation, Conjunctivae nml ENT: positive: ENT inspection nml, Pharynx nml, No signs of dehydration. negative: Purulent nasal drainage, Pharyngeal erythema, Oral lesions Neck: positive: Nml inspection, Thyroid nml, No JVD, Trachea midline. negative: Thyromegaly, Lymphadenopathy (R), Lymphadenopathy (L), Stiff neck, Swelling/bruising, Tracheal deviation Respiratory: positive: Chest non-tender, No respiratory distress, Breath sounds nml. negative: Wheezes, Rales, Rhonchi Cardiovascular: positive: Regular rate & rhythm, No murmur, No gallop. negative: Irregularly irregular, Extrasystoles, Tachycardia, Bradycardia, JVD present, Systolic murmur, Diastolic murmur Peripheral Pulses: positive: 2+ Abdomen: positive: No organomegaly, Nml bowel sounds, Tenderness. negative: Non-tender, No distention, Guarding, Rebound Back: positive: Nml inspection. negative: CVA tenderness (R), CVA tenderness (L) Skin: positive: Color nml, No rash, Warm, Dry. negative: Cyanosis, Diaphoresis, Pallor Extremities: positive: Non-tender, Full ROM, Nml appearance. negative: Calf tenderness, Joint swelling, Brian's sign/cords Neurologic/Psychiatric: positive: Oriented x3, Motor nml, Sensation nml, Mood/affect nml. negative: Weakness, Sensory loss, Facial droop, Slurred/abnml speech, Depressed mood/affect Sepsis Event Note (H) - Evaluation Current Stage of Sepsis: Ruled out Conclusion/Plan - Problem List (1) Acute pancreatitis Conclusion/Plan: recurrent, and pt was admitted for numerous times for same problem. CT of abdomen reveals no significant acute finding. pain control bowel rest NPO with IVF of NS Lipase monitor Qualifiers: Pancreatitis type: alcohol induced Acute pancreatitis complication: unspecified Qualified Code(s): K85.20 - Alcohol induced acute pancreatitis without necrosis or infection (2) Lactic acidosis Conclusion/Plan: pt has initially elevated Lactic acid up to 3.9. Second time it is down to 2.0. hydration, treat infection with cough and yellowing sputum with Azithyomycin (3) Elevated liver enzymes Conclusion/Plan: The similar problem as her every time admission, alcoholic hepatitis, elevated liver enzyme, and total Bili advise pt quit alcohol continue support, daily lab monitor (4) Alcoholism /alcohol abuse Conclusion/Plan: advise and consult with pt for quit alcohol again. since pt has previous withdrawal, and clinic present some tremor, anxiety put CIWA protocol IV of ativan as needed order and B1 vitamin (5) Cigarette smoker Conclusion/Plan: pt report she still continue to smoke cigarette 3 per day. and ask for nicotine patch (6) Cough productive of yellow sputum Conclusion/Plan: pt seem present bronchititis, cough, sputum with yellowing, and report lower degree fever at home begin with Azithyoimycin, followup blood culture done at ER. (7) Hyponatremia Conclusion/Plan: today Na 129, continue IVF of NS, daily lab monitor (8) Hypokalemia Conclusion/Plan: K is 3.2 today, replacement, daily lab monitor (9) Full code status Conclusion/Plan: pt request full code - Lab Results Fish Bones: 12/06/18 05:53 12/06/18 05:53 Core Measures - Anticipated LOS I expect patient to be DC'd or transferred within 96 hours.: Yes - DVT/VTE - Prophylaxis VTE/DVT Device ordered at admit?: Yes VTE/DVT Prophylaxis med ordered at admit?: Yes - Stroke - Rehab Assessment Rehab services assessment to be ordered?: Yes - AMI - Statin at Admit Aspirin Prescribed on Admit: Yes
[2018-12-06] MEDS: THIAMINE 100 MG TABLET PO SCH (10:23)
[2018-12-06] MEDS: ENOXAPARIN 40 MG/0.4 ML SYRINGE SUBQ SCH (10:23)
[2018-12-06] MEDS: PANTOPRAZOLE 40 MG TABLET PO SCH (10:23)
[2018-12-06] MEDS: PRENATAL VITAMIN TABLET PO SCH (10:23)
[2018-12-06] MEDS ORDERED: AZITHROMYCIN 250 MG TABLET PO SCH (13:00)
[2018-12-06] MEDS: LORazepam 2 MG/ML VIAL IVP PRN ×3 (14:46→21:55)
[2018-12-06] MEDS: SODIUM CHLORIDE FLUSH 0.9% 10 ML SYRINGE IVP PRN ×3 (18:18→21:55)
[2018-12-07] MEDS: SODIUM CHLORIDE FLUSH 0.9% 10 ML SYRINGE IVP PRN ×3 (01:17→10:50)
[2018-12-07] MEDS: LORazepam 2 MG/ML VIAL IVP PRN ×6 (01:17→22:44)
[2018-12-07] MEDS: SODIUM CHLORIDE 0.9% 1,000 ML IV SCH ×3 (01:44→17:38)
[2018-12-07] MEDS: MORPHINE 2 MG/ML SYRINGE IVP PRN ×4 (03:30→10:49)
[2018-12-07] MEDS: PANTOPRAZOLE 40 MG TABLET PO SCH (06:34)
[2018-12-07 06:44] LABS: BASOPHILS % (AUTO) 1.1 %; EOSINOPHILS % (AUTO) 1.1 %; HGB - HEMOGLOBIN 10.8 g/dL (12.0-16.0); LYMPHOCYTES # (AUTO) 0.6 10^3/uL (1.5-3.5); MEAN CORPUSCULAR HEMOGLOBIN 33.7 pg (27.0-31.0); MEAN CORPUSCULAR HGB CONC 33.6 g/dL (32.0-36.0); MEAN CORPUSCULAR VOLUME 100.2 fL (81.0-99.0); MEAN PLATELET VOLUME 7.7 fL (7.9-10.8); MONOCYTES # (AUTO) 0.4 10^3/uL (0.0-1.0); MONOCYTES % (AUTO) 12.9 %; NEUTROPHILS # (AUTO) 2.2 10^3/uL (1.5-6.6); NEUTROPHILS % (AUTO) 66.9 %; PLT - PLATELET COUNT 114 10^3/uL (130-450); RED BLOOD COUNT 3.21 10^6/uL (4.20-5.40); WHITE BLOOD COUNT 3.4 x10^3/uL (4.8-10.8)
[2018-12-07 06:56] LABS: ALBUMIN 2.8 g/dL (3.2-5.5); ALKALINE PHOSPHATASE 239 IU/L (42-121); ALT ALANINE AMINOTRANSFERASE 92 IU/L (10-60); AST ASPARTATE AMINOTRANSFERASE 275 IU/L (10-42); BILIRUBIN,TOTAL 5.7 mg/dL (0.2-1.0); BUN - BLOOD UREA NITROGEN < 5 mg/dL (6-20); CALCIUM 7.1 mg/dL (8.5-10.3); CARBON DIOXIDE - CO2 23 mmol/L (21-32); CHLORIDE 102 mmol/L (101-111); CREATININE 0.3 mg/dL (0.4-1.0); GFR - MDRD 229 (>89); GLUCOSE 108 mg/dL (70-100); LIPASE 132 U/L (22-51); MAGNESIUM 1.7 mg/dL (1.7-2.8); SODIUM 134 mmol/L (135-145); TOTAL PROTEIN 5.5 g/dL (6.7-8.2)
[2018-12-07] MEDS ORDERED: POTASSIUM CHLORIDE 20 MEQ TABLET PO ONE (08:11)
[2018-12-07] MEDS ORDERED: POTASSIUM CHLOR 20 MEQ/100 ML 20 MEQ/100 ML BAG IV ONE (08:11)
[2018-12-07] MEDS: THIAMINE 100 MG TABLET PO SCH (08:19)
[2018-12-07] MEDS: PRENATAL VITAMIN TABLET PO SCH (08:19)
[2018-12-07] MEDS: ENOXAPARIN 40 MG/0.4 ML SYRINGE SUBQ SCH (08:19)
[2018-12-07] MEDS: AZITHROMYCIN 250 MG TABLET PO SCH (08:19)
[2018-12-07] MEDS: SACCHAROMYCES BOULARDII 250 MG CAPSULE PO SCH ×2 (08:19→17:39)
[2018-12-07] MEDS: POLYETHYLENE GLYCOL 3350 17 GM PACKET PO SCH (08:20)
[2018-12-07] MEDS: NICOTINE 14 MG PATCH TOP SCH (08:21)
[2018-12-07] MEDS: SODIUM CHLORIDE FLUSH 0.9% 10 ML SYRINGE IVP SCH ×2 (08:28→15:44)
[2018-12-07] MEDS ORDERED: CALCIUM GLUCONATE 1,000 MG in SODIUM CHLORIDE 0.9% 50 ML IV SCH (09:00)
[2018-12-07] MEDS: HYDROmorphone 1 MG/ML CARPUJECT IVP PRN ×4 (12:53→21:17)
--- NOTE | 2018-12-07 13:11 | PROVIDER PROGRESS NOTE ---
Subjective - Prog Note Date Prog Note Date: 12/07/18 - Subjective Pt reports feeling: Improved Subjective: pt report her abdominal pain is slight better but still has pain. she denies chill, fever, chest pain, shortness of breath. Current Medications - Current Medications Current Medications: Active Medications Acetaminophen (Tylenol) 650 mg PO Q4HR PRN PRN Reason: Pain 1 to 4 Azithromycin (Zithromax) 250 mg PO DAILY [facility] Stop: 12/10/18 12:00 Last Admin: 12/07/18 08:19 Dose: 250 mg Enoxaparin Sodium (Lovenox) 40 mg SUBQ DAILY [facility] Last Admin: 12/07/18 08:19 Dose: 40 mg Hydromorphone HCl (Dilaudid Inj Carp) 1 mg IVP Q2HR PRN PRN Reason: PAIN Last Admin: 12/07/18 12:53 Dose: 1 mg Sodium Chloride (Normal Saline 0.9%) 1,000 mls @ 125 mls/hr IV .Q8H [facility] Last Admin: 12/07/18 09:25 Dose: 125 mls/hr Lorazepam (Ativan Inj (Vial)) 1 mg IVP Q30M PRN; Protocol PRN Reason: CIWA >8 Last Admin: 12/07/18 12:32 Dose: 1 mg Nicotine (Nicoderm) 1 patch TOP DAILY [facility] Last Admin: 12/07/18 08:21 Dose: 1 patch Ondansetron HCl (Zofran Inj) 4 mg IVP Q6HR PRN PRN Reason: Nausea / Vomiting Pantoprazole Sodium (Protonix) 40 mg PO QDAC [facility] Last Admin: 12/07/18 06:34 Dose: 40 mg Polyethylene Glycol (Miralax) 17 gm PO DAILY [facility] Last Admin: 12/07/18 08:20 Dose: Not Given Multivit/Folic Acid/Iron (Trinatal Rx 1) 1 tab PO DAILY [facility] Last Admin: 12/07/18 08:19 Dose: 1 tab Prochlorperazine Edisylate (Compazine Inj) 10 mg IVP Q6HR PRN PRN Reason: Nausea / Vomiting Saccharomyces Boulardii (Florastor) 250 mg PO BIDWM [facility] Last Admin: 12/07/18 08:19 Dose: 250 mg Sodium Chloride (Normal Saline Flush 0.9%) 10 ml IVP PRN PRN PRN Reason: NEEDED PER PROVIDER ORDERS Last Admin: 12/07/18 10:50 Dose: 10 ml Sodium Chloride (Normal Saline Flush 0.9%) 10 ml IVP 0100,0900,1700 [facility] Last Admin: 12/07/18 08:28 Dose: 10 ml Thiamine HCl (Vitamin B-1) 100 mg PO DAILY [facility] Last Admin: 12/07/18 08:19 Dose: 100 mg Zolpidem Tartrate (Ambien) 5 mg PO QPM PRN PRN Reason: Insomnia Spironolactone [Aldactone] 25 mg PO BID 12/06/18 Objective - Vital Signs/Intake & Output Reviewed Vital Signs: Yes Vital Signs: Vital Signs x48h Temp Pulse Resp BP Pulse Ox 12/07/18 08:34 36.9 C 91 16 120/64 98 12/07/18 04:44 36.8 C 89 18 112/69 99 Intake & Output: Intake & Output 12/04/18 12/05/18 12/06/18 12/07/18 23:59 23:59 23:59 23:59 Intake Total 4350 2041.250 Balance 4350 2041.250 - Objective General Appearance: positive: No acute distress, Alert. negative: Lethargic Eyes Bilateral: positive: Normal inspection, PERRL, No lid inflammation, Conjunctivae nml ENT: positive: ENT inspection nml, Pharynx nml, No signs of dehydration. negative: Purulent nasal drainage, Pharyngeal erythema, Oral lesions Neck: positive: Nml inspection, Thyroid nml, No JVD, Trachea midline. negative: Thyromegaly, Lymphadenopathy (R), Lymphadenopathy (L), Stiff neck, Swelling/ bruising, Tracheal deviation Respiratory: positive: Chest non-tender, No respiratory distress, Breath sounds nml. negative: Wheezes, Rales, Rhonchi Cardiovascular: positive: Regular rate & rhythm, No murmur, No gallop. negative: Irregularly irregular, Extrasystoles, Tachycardia, Bradycardia, JVD present, Systolic murmur, Diastolic murmur Peripheral Pulses: 2+ Radial (R), 2+ Radial (L), 2+ Dorsalis pedis (R), 2+ Dorsalis pedis (L) Abdomen: positive: Non-tender, No organomegaly, Nml bowel sounds, No distention. negative: Tenderness, Guarding, Rebound Back: positive: Nml inspection. negative: CVA tenderness (R), CVA tenderness (L) Skin: positive: Color nml, No rash, Warm, Dry. negative: Cyanosis, Diaphoresis, Pallor Extremities: positive: Non-tender, Full ROM, Nml appearance. negative: Calf tenderness, Joint swelling, Brian's sign/cords Neurologic/Psychiatric: positive: Oriented x3, Motor nml, Sensation nml. negative: Weakness, Sensory loss, Facial droop, Slurred/abnml speech, Depressed mood/affect - Lab Results Fish Bones: 12/07/18 05:10 12/07/18 05:10 Other Labs: Lab Results x24hrs 12/07/18 12/07/18 Range/Units 05:10 05:10 WBC 3.4 L (4.8-10.8) x10^3/uL RBC 3.21 L (4.20-5.40) 10^6/uL Hgb 10.8 L (12.0-16.0) g/dL Hct 32.2 L (37.0-47.0) % MCV 100.2 H (81.0-99.0) fL MCH 33.7 H (27.0-31.0) pg MCHC 33.6 (32.0-36.0) g/dL RDW 23.0 H (12.0-15.0) % Plt Count 114 L (130-450) 10^3/uL MPV 7.7 L (7.9-10.8) fL Neut # (Auto) 2.2 (1.5-6.6) 10^3/uL Lymph # (Auto) 0.6 L (1.5-3.5) 10^3/uL [place] # (Auto) 0.4 (0.0-1.0) 10^3/uL Eos # (Auto) 0.0 (0.0-0.7) 10^3/uL Baso # (Auto) 0.0 (0.0-0.1) 10^3/uL Absolute Nucleated RBC 0.01 x10^3/uL Nucleated RBC % 0.3 /100WBC Sodium 134 L (135-145) mmol/L Potassium 3.1 L (3.5-5.0) mmol/L Chloride 102 (101-111) mmol/L Carbon Dioxide 23 (21-32) mmol/L Anion Gap 9.0 (6-13) BUN < 5 L (6-20) mg/dL Creatinine 0.3 L (0.4-1.0) mg/dL Estimated GFR (MDRD) 229 (>89) Glucose 108 H (70-100) mg/dL Calcium 7.1 L (8.5-10.3) mg/dL Magnesium 1.7 (1.7-2.8) mg/dL Total Bilirubin 5.7 H (0.2-1.0) mg/dL AST 275 H (10-42) IU/L ALT 92 H (10-60) IU/L Alkaline Phosphatase 239 H (42-121) IU/L Total Protein 5.5 L (6.7-8.2) g/dL Albumin 2.8 L (3.2-5.5) g/dL Globulin 2.7 (2.1-4.2) g/dL Albumin/Globulin Ratio 1.0 (1.0-2.2) Lipase 132 H (22-51) U/L ABX Reporting Has patient been on IV antibiotics over the past 48 hours?: No Sepsis Event Note (H) - Evaluation Current Stage of Sepsis: Ruled out Assessment/Plan - Problem List (1) Acute pancreatitis Impression: 12/07 pt feel slight better for pain. Lipase is down to 130 from 190. continue IVF of NS, continue Lab monitor pain control with dilaudid since morphine does not control her pain recurrent, and pt was admitted for numerous times for same problem. CT of abdomen reveals no significant acute finding. pain control bowel rest NPO with IVF of NS Lipase monitor (2) Lactic acidosis Conclusion/Plan: stable pt has initially elevated Lactic acid up to 3.9. Second time it is down to 2.0. hydration, treat infection with cough and yellowing sputum with Azithyomycin (3) Elevated liver enzymes Conclusion/Plan: 12/07 improved. continue lab monitor The similar problem as her every time admission, alcoholic hepatitis, elevated liver enzyme, and total Bili advise pt quit alcohol continue support, daily lab monitor (4) Alcoholism /alcohol abuse Conclusion/Plan: advise and consult with pt for quit alcohol again. since pt has previous withdrawal, and clinic present some tremor, anxiety put CIWA protocol IV of ativan as needed order and B1 vitamin (5) Cigarette smoker Conclusion/Plan: pt report she still continue to smoke cigarette 3 per day. and ask for nicotine patch (6) Cough productive of yellow sputum Conclusion/Plan: 12/07pt feel better for her cough and breath. 99% sats on room air continue Azithyomycin pt seem present bronchititis, cough, sputum with yellowing, and report lower degree fever at home begin with Azithyoimycin, followup blood culture done at ER. (7) Hyponatremia Conclusion/Plan: 12/07 Improved. Na 134 today Na 129, continue IVF of NS, daily lab monitor (8) Hypokalemia Conclusion/Plan: K is 3.2 today, replacement, daily lab monitor Qualifiers: Pancreatitis type: alcohol induced Acute pancreatitis complication: unspecified Qualified Code(s): K85.20 - Alcohol induced acute pancreatitis without necrosis or infection
[2018-12-08] MEDS: SODIUM CHLORIDE FLUSH 0.9% 10 ML SYRINGE IVP SCH ×3 (01:18→17:07)
[2018-12-08] MEDS: SODIUM CHLORIDE 0.9% 1,000 ML IV SCH ×3 (01:19→18:31)
[2018-12-08] MEDS: HYDROmorphone 1 MG/ML CARPUJECT IVP PRN ×7 (01:30→20:28)
[2018-12-08] MEDS: SODIUM CHLORIDE FLUSH 0.9% 10 ML SYRINGE IVP PRN ×2 (04:53→20:28)
[2018-12-08 06:24] LABS: BASOPHILS # (AUTO) 0.1 10^3/uL (0.0-0.1); BASOPHILS % (AUTO) 1.8 %; EOSINOPHILS % (AUTO) 0.9 %; HGB - HEMOGLOBIN 11.6 g/dL (12.0-16.0); LYMPHOCYTES # (AUTO) 0.7 10^3/uL (1.5-3.5); LYMPHOCYTES % (AUTO) 12.5 %; MEAN CORPUSCULAR HEMOGLOBIN 33.9 pg (27.0-31.0); MEAN CORPUSCULAR HGB CONC 34.1 g/dL (32.0-36.0); MEAN CORPUSCULAR VOLUME 99.6 fL (81.0-99.0); MEAN PLATELET VOLUME 7.6 fL (7.9-10.8); MONOCYTES # (AUTO) 0.6 10^3/uL (0.0-1.0); NEUTROPHILS # (AUTO) 3.9 10^3/uL (1.5-6.6); NEUTROPHILS % (AUTO) 73.8 %; PLT - PLATELET COUNT 125 10^3/uL (130-450); RED BLOOD COUNT 3.43 10^6/uL (4.20-5.40); RED CELL DISTRIBUTION WIDTH 24.1 % (12.0-15.0); WHITE BLOOD COUNT 5.3 x10^3/uL (4.8-10.8)
[2018-12-08] MEDS: PANTOPRAZOLE 40 MG TABLET PO SCH (06:32)
[2018-12-08 06:38] LABS: ALBUMIN 2.9 g/dL (3.2-5.5); ALKALINE PHOSPHATASE 237 IU/L (42-121); ALT ALANINE AMINOTRANSFERASE 92 IU/L (10-60); AST ASPARTATE AMINOTRANSFERASE 237 IU/L (10-42); BUN - BLOOD UREA NITROGEN < 5 mg/dL (6-20); CALCIUM 7.5 mg/dL (8.5-10.3); CARBON DIOXIDE - CO2 21 mmol/L (21-32); CHLORIDE 105 mmol/L (101-111); GLUCOSE 138 mg/dL (70-100); LIPASE 100 U/L (22-51); SODIUM 136 mmol/L (135-145); TOTAL PROTEIN 5.8 g/dL (6.7-8.2)
[2018-12-08 06:46] LABS: CREATININE < 0.3 mg/dL (0.4-1.0)
[2018-12-08] MEDS: ENOXAPARIN 40 MG/0.4 ML SYRINGE SUBQ SCH (08:26)
[2018-12-08] MEDS: SACCHAROMYCES BOULARDII 250 MG CAPSULE PO SCH ×2 (08:26→17:16)
[2018-12-08] MEDS: AZITHROMYCIN 250 MG TABLET PO SCH (08:26)
[2018-12-08] MEDS: NICOTINE 14 MG PATCH TOP SCH (08:26)
[2018-12-08] MEDS: POLYETHYLENE GLYCOL 3350 17 GM PACKET PO SCH (08:27)
[2018-12-08] MEDS: THIAMINE 100 MG TABLET PO SCH (08:27)
[2018-12-08] MEDS: PRENATAL VITAMIN TABLET PO SCH (08:27)
[2018-12-08] MEDS: LORazepam 0.5 MG TABLET PO PRN ×2 (11:02→17:06)
--- NOTE | 2018-12-08 12:12 | Ultrasound Report ---
Reason: elevated bili, right upper quadrant pain Procedure Date: 12/08/2018 Accession Number: [id number] / [id number] Procedure: US - Abdomen Limited CPT Code: FULL RESULT: EXAM: ABDOMEN ULTRASOUND LIMITED, RUQ EXAM DATE: 12/08/2018 10:53 AM. CLINICAL HISTORY: Elevated bili, right upper quadrant pain. COMPARISON: ABDOMEN LIMITED 11/14/2017 8:47 AM. TECHNIQUE: Real-time scanning was performed with static images obtained. FINDINGS: The examination is limited by patient body habitus and poor acoustic windows. Liver: Increased echogenicity is noted of liver parenchyma which masks fine detail such as underlying masses. There is hepatomegaly with the right lobe of the liver measuring greater than 22 cm. Contour of the liver appears nodular with perihepatic ascites. Main portal vein flow: Hepatopetal. Gallbladder: There is ascites. Gallbladder wall is thin. Sludge is noted within the gallbladder. Sonographic Cheek's sign is negative. Biliary System: CBD measures 11 mm. Intrahepatic ducts are difficult to assess due to the echogenic parenchyma. The CBD caliber is larger than normal. Other: None. IMPRESSION: Tumefactive sludge in the gallbladder. Markedly dilated CBD, suspicious for distal biliary obstruction. Perihepatic ascites and cirrhosis. RADIA
[2018-12-09] MEDS: LORazepam 0.5 MG TABLET PO PRN ×3 (00:33→12:30)
[2018-12-09] MEDS: HYDROmorphone 1 MG/ML CARPUJECT IVP PRN ×5 (00:34→09:54)
[2018-12-09] MEDS: SODIUM CHLORIDE 0.9% 1,000 ML IV SCH ×3 (02:27→18:05)
[2018-12-09] MEDS: SODIUM CHLORIDE FLUSH 0.9% 10 ML SYRINGE IVP SCH ×4 (03:09→15:49)
[2018-12-09] MEDS: PANTOPRAZOLE 40 MG TABLET PO SCH (06:32)
[2018-12-09 07:07] LABS: BASOPHILS % (AUTO) 0.9 %; EOSINOPHILS % (AUTO) 0.7 %; HGB - HEMOGLOBIN 11.4 g/dL (12.0-16.0); LYMPHOCYTES % (AUTO) 29.5 %; MEAN CORPUSCULAR HEMOGLOBIN 33.7 pg (27.0-31.0); MEAN CORPUSCULAR HGB CONC 33.3 g/dL (32.0-36.0); MEAN CORPUSCULAR VOLUME 101.4 fL (81.0-99.0); MEAN PLATELET VOLUME 7.5 fL (7.9-10.8); MONOCYTES % (AUTO) 7.9 %; PLT - PLATELET COUNT 134 10^3/uL (130-450); RED BLOOD COUNT 3.37 10^6/uL (4.20-5.40); RED CELL DISTRIBUTION WIDTH 25.6 % (12.0-15.0); WHITE BLOOD COUNT 5.8 x10^3/uL (4.8-10.8)
[2018-12-09 07:14] LABS: ALBUMIN 2.5 g/dL (3.2-5.5); ALBUMIN/GLOBULIN RATIO 0.9 (1.0-2.2); ALKALINE PHOSPHATASE 186 IU/L (42-121); ALT ALANINE AMINOTRANSFERASE 82 IU/L (10-60); AST ASPARTATE AMINOTRANSFERASE 204 IU/L (10-42); BILIRUBIN,TOTAL 8.5 mg/dL (0.2-1.0); BUN - BLOOD UREA NITROGEN 5 mg/dL (6-20); CALCIUM 7.1 mg/dL (8.5-10.3); CARBON DIOXIDE - CO2 21 mmol/L (21-32); CHLORIDE 103 mmol/L (101-111); GLUCOSE 92 mg/dL (70-100); LIPASE 71 U/L (22-51); SODIUM 133 mmol/L (135-145); TOTAL PROTEIN 5.4 g/dL (6.7-8.2)
[2018-12-09 07:18] LABS: CREATININE < 0.3 mg/dL (0.4-1.0)
[2018-12-09 07:42] LABS: ABNORMAL LYMPHS % (MANUAL) 0 %
[2018-12-09 07:45] LABS: BAND NEUTROPHILS % (MANUAL) 2 %; BASOPHILS # (MANUAL) 0.2 10^3/uL (0-0.1); BASOPHILS % (MANUAL) 3 %; LYMPHOCYTES # (MANUAL) 0.9 10^3/uL (1.5-3.5); LYMPHOCYTES % (MANUAL) 15 %; MONOCYTES # (MANUAL) 0.5 10^3/uL (0.0-1.0); NEUTROPHILS # (MANUAL) 4.3 10^3/uL (1.5-6.6); NEUTROPHILS % (MANUAL) 72 %
[2018-12-09 07:46] LABS: PLATELET MORPHOLOGY NORMAL APPEARANCE (NORMAL)
[2018-12-09 07:47] LABS: DIFFERENTIAL COMMENT MANUAL DIFFERENTIAL; PLATELET ESTIMATE, MANUAL DECREASED (<130,000) (NORMAL)
[2018-12-09] MEDS: POLYETHYLENE GLYCOL 3350 17 GM PACKET PO SCH (08:15)
[2018-12-09] MEDS: PRENATAL VITAMIN TABLET PO SCH (08:44)
[2018-12-09] MEDS: NICOTINE 14 MG PATCH TOP SCH (08:44)
[2018-12-09] MEDS: SACCHAROMYCES BOULARDII 250 MG CAPSULE PO SCH ×2 (08:44→18:05)
[2018-12-09] MEDS: AZITHROMYCIN 250 MG TABLET PO SCH (08:44)
[2018-12-09] MEDS: THIAMINE 100 MG TABLET PO SCH (08:44)
[2018-12-09] MEDS: ENOXAPARIN 40 MG/0.4 ML SYRINGE SUBQ SCH (08:45)
--- NOTE | 2018-12-09 11:49 | PROVIDER PROGRESS NOTE ---
Subjective - Prog Note Date Prog Note Date: 12/08/18 - Subjective Pt reports feeling: Improved Subjective: In the morning when I assessed pt. pt stated she still feel pain at her abdomen. Pt also had elevated Bilirubin. So I order the US of abdomen. After [facility] had the the result of US. I discussed the US test result with my colleague Dr. Yeni Barrera. I assessed pt again. Pt stated she feel her abdomen pain was much better. I also discussed the US result with pt, pt had dilated CBD at 11 mm diameter, suspicious for distal biliary obstruction. Pt told she had stents on the area done before. She had a similar abdomen pain at , and she had MRCP on 2018, which measured dilation as 10mm diameter, no stone. Because pt felt her abdomen pain is much better, and there is similar dilation, so I called and consulted by phone with our surgeon , he advised order of MRCP, if pt has stone or obstruction, and pt need ERCP, pt need to be transferred. I then ordered MRCP Current Medications - Current Medications Current Medications: Active Medications Acetaminophen (Tylenol) 650 mg PO Q4HR PRN PRN Reason: Pain 1 to 4 Azithromycin (Zithromax) 250 mg PO DAILY [facility] Stop: 12/10/18 12:00 Last Admin: 12/09/18 08:44 Dose: 250 mg Enoxaparin Sodium (Lovenox) 40 mg SUBQ DAILY [facility] Last Admin: 12/09/18 08:45 Dose: 40 mg Hydromorphone HCl (Dilaudid Inj Carp) 1 mg IVP Q2HR PRN PRN Reason: PAIN Last Admin: 12/09/18 09:54 Dose: 1 mg Hydromorphone HCl (Dilaudid [employer] 20mg/100ml) 20 mg IV PRN PRN; Protocol PRN Reason: Abdominal Pain Sodium Chloride (Normal Saline 0.9%) 1,000 mls @ 125 mls/hr IV .Q8H [facility] Last Admin: 12/09/18 10:38 Dose: 125 mls/hr Lorazepam (Ativan Inj (Vial)) 1 mg IVP Q30M PRN; Protocol PRN Reason: CIWA >8 Last Admin: 12/07/18 22:44 Dose: 1 mg Lorazepam (Ativan) 0.5 mg PO Q6H PRN PRN Reason: Anxiety Last Admin: 12/09/18 06:33 Dose: 0.5 mg Nicotine (Nicoderm) 1 patch TOP DAILY [facility] Last Admin: 12/09/18 08:44 Dose: 1 patch Ondansetron HCl (Zofran Inj) 4 mg IVP Q6HR PRN PRN Reason: Nausea / Vomiting Pantoprazole Sodium (Protonix) 40 mg PO QDAC [facility] Last Admin: 12/09/18 06:32 Dose: 40 mg Polyethylene Glycol (Miralax) 17 gm PO DAILY [facility] Last Admin: 12/09/18 08:15 Dose: Not Given Multivit/Folic Acid/Iron (Trinatal Rx 1) 1 tab PO DAILY [facility] Last Admin: 12/09/18 08:44 Dose: 1 tab Prochlorperazine Edisylate (Compazine Inj) 10 mg IVP Q6HR PRN PRN Reason: Nausea / Vomiting Saccharomyces Boulardii (Florastor) 250 mg PO BIDWM [facility] Last Admin: 12/09/18 08:44 Dose: 250 mg Sodium Chloride (Normal Saline Flush 0.9%) 10 ml IVP PRN PRN PRN Reason: NEEDED PER PROVIDER ORDERS Last Admin: 12/08/18 20:28 Dose: 10 ml Sodium Chloride (Normal Saline Flush 0.9%) 10 ml IVP 0100,0900,1700 [facility] Last Admin: 12/09/18 08:45 Dose: 10 ml Thiamine HCl (Vitamin B-1) 100 mg PO DAILY [facility] Last Admin: 12/09/18 08:44 Dose: 100 mg Zolpidem Tartrate (Ambien) 5 mg PO QPM PRN PRN Reason: Insomnia Spironolactone [Aldactone] 25 mg PO BID 12/06/18 Objective - Vital Signs/Intake & Output Reviewed Vital Signs: Yes Vital Signs: Vital Signs x48h Temp Pulse Resp BP Pulse Ox 12/09/18 07:30 36.8 C 88 18 124/71 97 12/09/18 05:35 36.6 C 89 18 122/74 99 Intake & Output: Intake & Output 12/06/18 12/07/18 12/08/18 12/09/18 23:59 23:59 23:59 23:59 Intake Total 4350 4021.250 3748.417 1991.667 Output Total 350 300 Balance 4350 4021.250 3398.417 1691.667 - Objective General Appearance: positive: No acute distress, Alert. negative: Lethargic Eyes Bilateral: positive: Normal inspection, PERRL, No lid inflammation, Conjunctivae nml ENT: positive: ENT inspection nml, Pharynx nml, No signs of dehydration. negative: Purulent nasal drainage, Pharyngeal erythema, Oral lesions Neck: positive: Nml inspection, Thyroid nml, No JVD, Trachea midline. negative: Thyromegaly, Lymphadenopathy (R), Lymphadenopathy (L), Stiff neck, Swelling/bruising, Tracheal deviation Respiratory: positive: Chest non-tender, No respiratory distress, Breath sounds nml. negative: Wheezes, Rales, Rhonchi Cardiovascular: positive: Regular rate & rhythm, No murmur, No gallop. negative: Irregularly irregular, Extrasystoles, Tachycardia, Bradycardia, JVD present, Systolic murmur, Diastolic murmur Peripheral Pulses: 2+ Radial (R), 2+ Radial (L), 2+ Dorsalis pedis (R), 2+ Dorsalis pedis (L) Abdomen: positive: No organomegaly, Nml bowel sounds, Tenderness. negative: Non-tender, Guarding, Rebound Back: positive: Nml inspection. negative: CVA tenderness (R), CVA tenderness (L) Skin: positive: Color nml, No rash, Warm, Dry. negative: Cyanosis, Diaphoresis, Pallor Extremities: positive: Non-tender, Full ROM, Nml appearance. negative: Calf tenderness, Joint swelling, Brian's sign/cords Neurologic/Psychiatric: positive: Oriented x3, Motor nml, Sensation nml, Mood/affect nml. negative: Weakness, Sensory loss, Facial droop, Slurred/abnml speech, Depressed mood/affect - Lab Results Fish Bones: 12/09/18 06:32 12/09/18 06:32 Other Labs: Lab Results x24hrs 12/09/18 12/09/18 Range/Units 06:32 06:32 WBC 5.8 (4.8-10.8) x10^3/uL RBC 3.37 L (4.20-5.40) 10^6/uL Hgb 11.4 L (12.0-16.0) g/dL Hct 34.2 L (37.0-47.0) % MCV 101.4 H (81.0-99.0) fL MCH 33.7 H (27.0-31.0) pg MCHC 33.3 (32.0-36.0) g/dL RDW 25.6 H (12.0-15.0) % Plt Count 134 (130-450) 10^3/uL MPV 7.5 L (7.9-10.8) fL Neut # (Auto) Not Reportable Lymph # (Auto) Not Reportable [place] # (Auto) Not Reportable Eos # (Auto) Not Reportable Baso # (Auto) Not Reportable Absolute Nucleated RBC Not Reportable Total Counted 100 Band Neuts % (Manual) 2 (0 - 10) % Abnorm Lymph % (Manual) 0 % Nucleated RBC % Not Reportable Neutrophils # (Manual) 4.3 (1.5-6.6) 10^3/uL Lymphocytes # (Manual) 0.9 L (1.5-3.5) 10^3/uL Monocytes # (Manual) 0.5 (0.0-1.0) 10^3/uL Eosinophils # (Manual) 0.0 (0-0.7) 10^3/uL Basophils # (Manual) 0.2 H (0-0.1) 10^3/uL Differential Comment MANUAL DIFFERENTIAL Manual Slide Review Indicated WBC Morphology 1+ TOXIC GRANULATION (NORMAL) Platelet Estimate DECREASED (<130,000) (NORMAL) Platelet Morphology NORMAL APPEARANCE (NORMAL) RBC Morph Micro Appear 1+ MACROCYTOSIS (NORMAL) Sodium 133 L (135-145) mmol/L Potassium 3.5 (3.5-5.0) mmol/L Chloride 103 (101-111) mmol/L Carbon Dioxide 21 (21-32) mmol/L Anion Gap 9.0 (6-13) BUN 5 L (6-20) mg/dL Creatinine < 0.3 L (0.4-1.0) mg/dL Estimated GFR (MDRD) Not Reportable Glucose 92 (70-100) mg/dL Calcium 7.1 L (8.5-10.3) mg/dL Total Bilirubin 8.5 H (0.2-1.0) mg/dL AST 204 H (10-42) IU/L ALT 82 H (10-60) IU/L Alkaline Phosphatase 186 H (42-121) IU/L Total Protein 5.4 L (6.7-8.2) g/dL Albumin 2.5 L (3.2-5.5) g/dL Globulin 2.9 (2.1-4.2) g/dL Albumin/Globulin Ratio 0.9 L (1.0-2.2) Lipase 71 H (22-51) U/L ABX Reporting Has patient been on IV antibiotics over the past 48 hours?: Yes Sepsis Event Note (H) - Evaluation Current Stage of Sepsis: Ruled out Assessment/Plan - Problem List (1) Acute pancreatitis Impression: pt feel her abdominal pain is much better at the afternoon. Her Lipase is down to 100 continue IVF of NS, clear diet, advanced diet as tolerated continue monitor Lipase, other lab and vital monitor continue pain control 12/07 pt feel slight better for pain. Lipase is down to 130 from 190. continue IVF of NS, continue Lab monitor pain control with dilaudid since morphine does not control her pain recurrent, and pt was admitted for numerous times for same problem. CT of abdomen reveals no significant acute finding. pain control bowel rest NPO with IVF of NS Lipase monitor (2) Lactic acidosis Conclusion/Plan: stable pt has initially elevated Lactic acid up to 3.9. Second time it is down to 2.0. hydration, treat infection with cough and yellowing sputum with Azithyomycin (3) Elevated liver enzymes Conclusion/Plan: 12/08 slight improved. pt has hx of alcoholic hepatic cirrhosis 12/07 improved. continue lab monitor The similar problem as her every time admission, alcoholic hepatitis, elevated liver enzyme, and total Bili advise pt quit alcohol continue support, daily lab monitor (4) Alcoholism /alcohol abuse Conclusion/Plan: advise and consult with pt for quit alcohol again. since pt has previous withdrawal, and clinic present some tremor, anxiety put CIWA protocol IV of ativan as needed order and B1 vitamin (5) Cigarette smoker Conclusion/Plan: pt report she still continue to smoke cigarette 3 per day. and ask for nicotine patch (6) Cough productive of yellow sputum Conclusion/Plan: 12/08 improved. 99% on room air 12/07pt feel better for her cough and breath. 99% sats on room air continue Azithyomycin pt seem present bronchititis, cough, sputum with yellowing, and report lower degree fever at home begin with Azithyoimycin, followup blood culture done at ER. (7) Hyponatremia Conclusion/Plan: 12/08 resolved. Na 136 12/07 Improved. Na 134 today Na 129, continue IVF of NS, daily lab monitor (8) Hypokalemia Conclusion/Plan: 12/08 resolved K is 3.2 today, replacement, daily lab monitor (9) elevated total bilirubin today pt's bilirubin is 7. In the morning pt still complain abdominal pain. order US limited abdomen. The result was discussed with pt. At the time pt rep ort her abdominal pain is much better. pt had dilated CBD at 11 mm diameter, suspicious for distal biliary obstruction. I also discussed with Dr. Yeni Barrera. [facility] called and consulted with our surgeon Dr. Knight. He advised to order MRCP. MRCP was ordered. Pt had similar dilation in US today as she had one on MRCP. followup MRCP result. continue lab monitor closely. If pt's bilirubin continue increase, pt may need high level care with GI speciality. Qualifiers: Pancreatitis type: alcohol induced Acute pancreatitis complication: unsp ecified Qualified Code(s): K85.20 - Alcohol induced acute pancreatitis without necrosis or infection
[2018-12-09] MEDS: HYDROmorphone PCA 20MG/100ML IV PRN (12:09)
--- NOTE | 2018-12-09 17:28 | PROVIDER PROGRESS NOTE ---
Subjective - Prog Note Date Prog Note Date: 12/09/18 Prog Note Time: 12:00 - Subjective Pt reports feeling: No change Subjective: Lee Ann complains of extreme thirst and requests a Popsicle . She denies chest pain, nausea, vomiting, dizziness or a new cough. -Offered to search for an accepting facility to undergo a more emergent MRCP since this department has no weekend hours[place] I explained the possible implications of waiting; such as worsening bilirubin, infection, uncontrolled pain, or worsening of pancreatitis. Current Medications - Current Medications Current Medications: Active Medications Azithromycin (Zithromax) 250 mg PO DAILY [facility] Stop: 12/10/18 12:00 Last Admin: 12/09/18 08:44 Dose: 250 mg Enoxaparin Sodium (Lovenox) 40 mg SUBQ DAILY [facility] Last Admin: 12/09/18 08:45 Dose: 40 mg Hydromorphone HCl (Dilaudid Inj Carp) 1 mg IVP Q2HR PRN PRN Reason: PAIN Last Admin: 12/09/18 09:54 Dose: 1 mg Hydromorphone HCl (Dilaudid [employer] 20mg/100ml) 20 mg IV PRN PRN; Protocol PRN Reason: Abdominal Pain Last Admin: 12/09/18 12:09 Dose: 20 mg Sodium Chloride (Normal Saline 0.9%) 1,000 mls @ 125 mls/hr IV .Q8H [facility] Last Admin: 12/09/18 10:38 Dose: 125 mls/hr Lorazepam (Ativan Inj (Vial)) 1 mg IVP Q30M PRN; Protocol PRN Reason: CIWA >8 Last Admin: 12/07/18 22:44 Dose: 1 mg Lorazepam (Ativan) 0.5 mg PO Q6H PRN PRN Reason: Anxiety Last Admin: 12/09/18 12:30 Dose: 0.5 mg Nicotine (Nicoderm) 1 patch TOP DAILY [facility] Last Admin: 12/09/18 08:44 Dose: 1 patch Ondansetron HCl (Zofran Inj) 4 mg IVP Q6HR PRN PRN Reason: Nausea / Vomiting Pantoprazole Sodium (Protonix) 40 mg PO QDAC [facility] Last Admin: 12/09/18 06:32 Dose: 40 mg Polyethylene Glycol (Miralax) 17 gm PO DAILY [facility] Last Admin: 12/09/18 08:15 Dose: Not Given Multivit/Folic Acid/Iron (Trinatal Rx 1) 1 tab PO DAILY [facility] Last Admin: 12/09/18 08:44 Dose: 1 tab Prochlorperazine Edisylate (Compazine Inj) 10 mg IVP Q6HR PRN PRN Reason: Nausea / Vomiting Saccharomyces Boulardii (Florastor) 250 mg PO BIDWM [facility] Last Admin: 12/09/18 08:44 Dose: 250 mg Thiamine HCl (Vitamin B-1) 100 mg PO DAILY [facility] Last Admin: 12/09/18 08:44 Dose: 100 mg Zolpidem Tartrate (Ambien) 5 mg PO QPM PRN PRN Reason: Insomnia Spironolactone [Aldactone] 25 mg PO BID 12/06/18 Objective - Vital Signs/Intake & Output Reviewed Vital Signs: Yes Vital Signs: Vital Signs x48h Temp Pulse Resp BP Pulse Ox 12/09/18 16:00 37.2 C 90 18 117/72 96 12/09/18 12:40 20 12/09/18 12:22 37 C 87 20 125/74 98 Intake & Output: Intake & Output 12/06/18 12/07/18 12/08/18 12/09/18 23:59 23:59 23:59 23:59 Intake Total 4350 4021.250 3748.417 1991.667 Output Total 350 300 Balance 4350 4021.250 3398.417 1691.667 - Objective General Appearance: positive: Alert, Moderate distress, Anxious Eyes Bilateral: positive: PERRL Eyes: OU Conjunctivae pale, OU Scleral icterus (mild) ENT: positive: Pharynx nml, Dry mucous membranes Neck: positive: Thyroid nml, Trachea midline, Stiff neck Respiratory: positive: Chest non-tender, No respiratory distress Cardiovascular: positive: Regular rate & rhythm, Systolic murmur, Diastolic murmur, Decreased pulse(s) Peripheral Pulses: 1+ Radial (R), 1+ Radial (L) Abdomen: positive: Tenderness, Guarding, Hepatomegaly, Splenomegaly, Abnml bowel sounds Back: positive: Nml inspection Skin: positive: No rash, Warm, Other (bronze) Extremities: positive: Non-tender, Pedal edema Neurologic/Psychiatric: positive: Oriented x3, CN's nml (2-12), Motor nml, Weakness, Slurred/abnml speech, Depressed mood/affect Reflexes: Bicep (R): 2+, Bicep (L): 2+ - Lab Results Fish Bones: 12/10/18 06:07 12/10/18 06:07 Other Labs: Lab Results x24hrs 12/09/18 12/09/18 Range/Units 06:32 06:32 WBC 5.8 (4.8-10.8) x10^3/uL RBC 3.37 L (4.20-5.40) 10^6/uL Hgb 11.4 L (12.0-16.0) g/dL Hct 34.2 L (37.0-47.0) % MCV 101.4 H (81.0-99.0) fL MCH 33.7 H (27.0-31.0) pg MCHC 33.3 (32.0-36.0) g/dL RDW 25.6 H (12.0-15.0) % Plt Count 134 (130-450) 10^3/uL MPV 7.5 L (7.9-10.8) fL Neut # (Auto) Not Reportable Lymph # (Auto) Not Reportable [place] # (Auto) Not Reportable Eos # (Auto) Not Reportable Baso # (Auto) Not Reportable Absolute Nucleated RBC Not Reportable Total Counted 100 Band Neuts % (Manual) 2 (0 - 10) % Abnorm Lymph % (Manual) 0 % Nucleated RBC % Not Reportable Neutrophils # (Manual) 4.3 (1.5-6.6) 10^3/uL Lymphocytes # (Manual) 0.9 L (1.5-3.5) 10^3/uL Monocytes # (Manual) 0.5 (0.0-1.0) 10^3/uL Eosinophils # (Manual) 0.0 (0-0.7) 10^3/uL Basophils # (Manual) 0.2 H (0-0.1) 10^3/uL Differential Comment MANUAL DIFFERENTIAL Manual Slide Review Indicated WBC Morphology 1+ TOXIC GRANULATION (NORMAL) Platelet Estimate DECREASED (<130,000) (NORMAL) Platelet Morphology NORMAL APPEARANCE (NORMAL) RBC Morph Micro Appear 1+ MACROCYTOSIS (NORMAL) Sodium 133 L (135-145) mmol/L Potassium 3.5 (3.5-5.0) mmol/L Chloride 103 (101-111) mmol/L Carbon Dioxide 21 (21-32) mmol/L Anion Gap 9.0 (6-13) BUN 5 L (6-20) mg/dL Creatinine < 0.3 L (0.4-1.0) mg/dL Estimated GFR (MDRD) Not Reportable Glucose 92 (70-100) mg/dL Calcium 7.1 L (8.5-10.3) mg/dL Total Bilirubin 8.5 H (0.2-1.0) mg/dL AST 204 H (10-42) IU/L ALT 82 H (10-60) IU/L Alkaline Phosphatase 186 H (42-121) IU/L Total Protein 5.4 L (6.7-8.2) g/dL Albumin 2.5 L (3.2-5.5) g/dL Globulin 2.9 (2.1-4.2) g/dL Albumin/Globulin Ratio 0.9 L (1.0-2.2) Lipase 71 H (22-51) U/L ABX Reporting Has patient been on IV antibiotics over the past 48 hours?: No Sepsis Event Note (H) - Evaluation Current Stage of Sepsis: Ruled out Assessment/Plan - Problem List (1) Acute pancreatitis Impression: - MRCP was ordered, but no available services on the weekend - Spoke with Lee Ann who refuses a transfer to another hospital to undergo a more urgent MRCP Plan: Continue pain control with dilaudid ULTRASOUND COORDINATOR, await MRCP on Tuesday, general surgery following Qualifiers: Pancreatitis type: alcohol induced Acute pancreatitis complication: unspecified Qualified Code(s): K85.20 - Alcohol induced acute pancreatitis without necrosis or infection (2) Total bilirubin, elevated Impression: - Bili up to 8.5 today, which has increased from admission (5.7) - On exam, diffuse abdominal tenderness is appreciated Plan: Continue labs, await MRCP (3) B12 deficiency anemia Impression: -H/H 11.4/34.2 today with an elevated MCV of 101.4, consistent with this disorder Plan: Continue to monitor, transfuse if hemoglobin less than 7 (4) ADD (attention deficit disorder) Impression: - Life long disorder - No prescribed meds at this time Plan: Monitor for impulsive or inattention (5) Elevated liver enzymes Impression: -AST 204, ALT 82, alk phos 186 today (generally unchanged from previous) Plan: Continue to monitor, await MRCP
[2018-12-10] MEDS: SODIUM CHLORIDE FLUSH 0.9% 10 ML SYRINGE IVP SCH ×3 (01:49→17:11)
[2018-12-10] MEDS: SODIUM CHLORIDE 0.9% 1,000 ML IV SCH ×4 (01:49→20:51)
[2018-12-10] MEDS: PANTOPRAZOLE 40 MG TABLET PO SCH (06:19)
[2018-12-10 06:38] LABS: BASOPHILS % (AUTO) 2.3 %; EOSINOPHILS % (AUTO) 0.4 %; HGB - HEMOGLOBIN 11.6 g/dL (12.0-16.0); LYMPHOCYTES % (AUTO) 32.5 %; MEAN CORPUSCULAR HEMOGLOBIN 34.5 pg (27.0-31.0); MEAN CORPUSCULAR HGB CONC 33.7 g/dL (32.0-36.0); MEAN CORPUSCULAR VOLUME 102.3 fL (81.0-99.0); MEAN PLATELET VOLUME 7.6 fL (7.9-10.8); MONOCYTES % (AUTO) 13.9 %; NEUTROPHILS % (AUTO) 50.9 %; PLT - PLATELET COUNT 141 10^3/uL (130-450); RED BLOOD COUNT 3.36 10^6/uL (4.20-5.40); RED CELL DISTRIBUTION WIDTH 26.7 % (12.0-15.0)
[2018-12-10 06:50] LABS: ALBUMIN 2.5 g/dL (3.2-5.5); ALBUMIN/GLOBULIN RATIO 0.8 (1.0-2.2); BILIRUBIN,TOTAL 9.9 mg/dL (0.2-1.0); CREATININE 0.3 mg/dL (0.4-1.0); TOTAL PROTEIN 5.5 g/dL (6.7-8.2)
[2018-12-10 07:55] LABS: ABNORMAL LYMPHS % (MANUAL) 0 %
[2018-12-10 08:01] LABS: BAND NEUTROPHILS % (MANUAL) 1 %; EOSINOPHILS # (MANUAL) 0.2 10^3/uL (0-0.7); LYMPHOCYTES % (MANUAL) 17 %; NEUTROPHILS # (MANUAL) 3.9 10^3/uL (1.5-6.6); NEUTROPHILS % (MANUAL) 64 %
[2018-12-10 08:05] LABS: PLATELET MORPHOLOGY NORMAL APPEARANCE (NORMAL)
[2018-12-10 08:06] LABS: DIFFERENTIAL COMMENT MANUAL DIFFERENTIAL; PLATELET ESTIMATE, MANUAL NORMAL (130-450,000) (NORMAL)
[2018-12-10] MEDS: LORazepam 0.5 MG TABLET PO PRN ×3 (08:21→22:02)
[2018-12-10] MEDS: AZITHROMYCIN 250 MG TABLET PO SCH (08:21)
[2018-12-10] MEDS: NICOTINE 14 MG PATCH TOP SCH (08:21)
[2018-12-10] MEDS: SACCHAROMYCES BOULARDII 250 MG CAPSULE PO SCH ×2 (08:21→17:10)
[2018-12-10] MEDS: PRENATAL VITAMIN TABLET PO SCH (08:21)
[2018-12-10] MEDS: THIAMINE 100 MG TABLET PO SCH (08:21)
[2018-12-10] MEDS: ENOXAPARIN 40 MG/0.4 ML SYRINGE SUBQ SCH (08:21)
[2018-12-10] MEDS: POLYETHYLENE GLYCOL 3350 17 GM PACKET PO SCH (08:24)
[2018-12-10] MEDS ORDERED: ONDANSETRON 4 MG/2 ML VIAL IVP PRN (11:01)
--- NOTE | 2018-12-10 11:01 | PROVIDER PROGRESS NOTE ---
Subjective - Prog Note Date Prog Note Date: 12/10/18 Prog Note Time: 10:58 - Subjective Pt reports feeling: No change Subjective: Lee Ann admits to sleeping well last night, but complains of increased shortness of breath when sitting up due to her abdominal edema. Current Medications - Current Medications Current Medications: Active Medications Acetaminophen (Tylenol) 650 mg PO Q4HR PRN PRN Reason: Pain 1 to 4 Azithromycin (Zithromax) 250 mg PO DAILY [facility] Stop: 12/10/18 12:00 Last Admin: 12/10/18 08:21 Dose: 250 mg Enoxaparin Sodium (Lovenox) 40 mg SUBQ DAILY [facility] Last Admin: 12/10/18 08:21 Dose: 40 mg Hydromorphone HCl (Dilaudid Inj Carp) 1 mg IVP Q2HR PRN PRN Reason: PAIN Last Admin: 12/09/18 09:54 Dose: 1 mg Hydromorphone HCl (Dilaudid Civil Cad Designer 20mg/100ml) 20 mg IV PRN PRN; Protocol PRN Reason: Abdominal Pain Last Admin: 12/09/18 12:09 Dose: 20 mg Lorazepam (Ativan Inj (Vial)) 1 mg IVP Q30M PRN; Protocol PRN Reason: CIWA >8 Last Admin: 12/07/18 22:44 Dose: 1 mg Lorazepam (Ativan) 0.5 mg PO Q6H PRN PRN Reason: Anxiety Last Admin: 12/10/18 08:21 Dose: 0.5 mg Nicotine (Nicoderm) 1 patch TOP DAILY [facility] Last Admin: 12/10/18 08:21 Dose: 1 patch Ondansetron HCl (Zofran Inj) 4 mg IVP Q4HR PRN PRN Reason: Nausea / Vomiting Pantoprazole Sodium (Protonix) 40 mg PO QDAC [facility] Last Admin: 12/10/18 06:19 Dose: 40 mg Polyethylene Glycol (Miralax) 17 gm PO DAILY [facility] Last Admin: 12/10/18 08:24 Dose: Not Given Multivit/Folic Acid/Iron (Trinatal Rx 1) 1 tab PO DAILY [facility] Last Admin: 12/10/18 08:21 Dose: 1 tab Prochlorperazine Edisylate (Compazine Inj) 10 mg IVP Q6HR PRN PRN Reason: Nausea / Vomiting Saccharomyces Boulardii (Florastor) 250 mg PO BIDWM [facility] Last Admin: 12/10/18 08:21 Dose: 250 mg Sodium Chloride (Normal Saline Flush 0.9%) 10 ml IVP PRN PRN PRN Reason: NEEDED PER PROVIDER ORDERS Last Admin: 12/08/18 20:28 Dose: 10 ml Sodium Chloride (Normal Saline Flush 0.9%) 10 ml IVP 0100,0900,1700 [facility] Last Admin: 12/10/18 08:24 Dose: Not Given Thiamine HCl (Vitamin B-1) 100 mg PO DAILY [facility] Last Admin: 12/10/18 08:21 Dose: 100 mg Ursodiol (Benny 250) 500 mg PO BID [facility] Zolpidem Tartrate (Ambien) 5 mg PO QPM PRN PRN Reason: Insomnia Spironolactone [Aldactone] 25 mg PO BID 12/06/18 Objective - Vital Signs/Intake & Output Reviewed Vital Signs: Yes Vital Signs: Vital Signs x48h Temp Pulse Resp BP BP Pulse Ox 12/10/18 10:00 16 12/10/18 08:00 16 12/10/18 07:31 37.1 C 88 16 118/75 97 12/10/18 06:22 18 12/10/18 05:05 36.9 C 87 18 118/79 97 12/10/18 04:52 18 Intake & Output: Intake & Output 12/07/18 12/08/18 12/09/18 12/10/18 23:59 23:59 23:59 23:59 Intake Total 4021.250 3748.417 3162.917 2456.667 Output Total 350 300 300 Balance 4021.250 3398.417 2862.917 2156.667 - Objective General Appearance: positive: Alert, Mild distress, Anxious Eyes Bilateral: positive: PERRL Eyes: OU Scleral icterus ENT: positive: Pharynx nml, Dry mucous membranes Neck: positive: Thyroid nml, No JVD, Trachea midline Respiratory: positive: Chest non-tender, Wheezes, Rhonchi, Other (Difficulty with breathing, worse when HOB is up) Cardiovascular: positive: Tachycardia, Systolic murmur, Decreased pulse(s) Peripheral Pulses: 1+ Radial (R), 1+ Radial (L) Abdomen: positive: Tenderness, Guarding, Hepatomegaly, Abnml bowel sounds Back: positive: Nml inspection Skin: positive: No rash, Warm, Dry (flaky), Other (bronze toned skin) Extremities: positive: Non-tender, Pedal edema Neurologic/Psychiatric: positive: Oriented x3, CN's nml (2-12), Motor nml, Sensation nml, Weakness, Depressed mood/affect, Other (forgetful) Reflexes: Bicep (R): 3+, Bicep (L): 3+ - Lab Results Fish Bones: 12/10/18 06:07 12/10/18 06:07 Other Labs: Lab Results x24hrs 12/10/18 12/10/18 Range/Units 06:07 06:07 WBC 6.0 (4.8-10.8) x10^3/uL RBC 3.36 L (4.20-5.40) 10^6/uL Hgb 11.6 L (12.0-16.0) g/dL Hct 34.4 L (37.0-47.0) % MCV 102.3 H (81.0-99.0) fL MCH 34.5 H (27.0-31.0) pg MCHC 33.7 (32.0-36.0) g/dL RDW 26.7 H (12.0-15.0) % Plt Count 141 (130-450) 10^3/uL MPV 7.6 L (7.9-10.8) fL Neut # (Auto) Not Reportable Lymph # (Auto) Not Reportable [place] # (Auto) Not Reportable Eos # (Auto) Not Reportable Baso # (Auto) Not Reportable Absolute Nucleated RBC Not Reportable Total Counted 200 Band Neuts % (Manual) 1 (0 - 10) % Abnorm Lymph % (Manual) 0 % Nucleated RBC % Not Reportable Neutrophils # (Manual) 3.9 (1.5-6.6) 10^3/uL Lymphocytes # (Manual) 1.0 L (1.5-3.5) 10^3/uL Monocytes # (Manual) 1.0 (0.0-1.0) 10^3/uL Eosinophils # (Manual) 0.2 (0-0.7) 10^3/uL Basophils # (Manual) 0.0 (0-0.1) 10^3/uL Differential Comment MANUAL DIFFERENTIAL Manual Slide Review Indicated WBC Morphology NORMAL APPEARANCE (NORMAL) Platelet Estimate NORMAL (130-450,000) (NORMAL) Platelet Morphology NORMAL APPEARANCE (NORMAL) RBC Morph Micro Appear 1+ POLYCHROMASIA (NORMAL) Sodium 132 L (135-145) mmol/L Potassium 3.2 L (3.5-5.0) mmol/L Chloride 104 (101-111) mmol/L Carbon Dioxide 21 (21-32) mmol/L Anion Gap 7.0 (6-13) BUN 6 (6-20) mg/dL Creatinine 0.3 L (0.4-1.0) mg/dL Estimated GFR (MDRD) 229 (>89) Glucose 98 (70-100) mg/dL Calcium 7.0 L (8.5-10.3) mg/dL Total Bilirubin 9.9 H (0.2-1.0) mg/dL AST 172 H (10-42) IU/L ALT 77 H (10-60) IU/L Alkaline Phosphatase 172 H (42-121) IU/L Total Protein 5.5 L (6.7-8.2) g/dL Albumin 2.5 L (3.2-5.5) g/dL Globulin 3.0 (2.1-4.2) g/dL Albumin/Globulin Ratio 0.8 L (1.0-2.2) Lipase 63 H (22-51) U/L ABX Reporting Has patient been on IV antibiotics over the past 48 hours?: No Sepsis Event Note (H) - Evaluation Current Stage of Sepsis: Ruled out Assessment/Plan - Problem List (1) Acute pancreatitis Impression: - MRCP was ordered, but no available services on the weekend - Spoke with Lee Ann and her boyfriend again today; who refuses a transfer to another hospital to undergo a more urgent MRCP - Started Ursodiol today to help dissolve sludge in common bile duct, but this may cause nausea Plan: Continue pain control with dilaudid METAL TILE SETTER, await MRCP on Tuesday, general surgery following Qualifiers: Pancreatitis type: alcohol induced Acute pancreatitis complication: unspecified Qualified Code(s): K85.20 - Alcohol induced acute pancreatitis without necrosis or infection (2) Total bilirubin, elevated Impression: - Bili up to 9.9 today, which has increased from admission (5.7) - On exam, diffuse abdominal tenderness is appreciated - No jaundice appreciated on exam, only mild scleral icterus Plan: Continue labs, await MRCP (3) B12 deficiency anemia Impression: -H/H 11.6/34.4 today with an elevated MCV of 102.3, consistent with this disorder Plan: Continue to monitor, transfuse if hemoglobin less than 7 (4) ADD (attention deficit disorder) Impression: - Life long disorder - No prescribed meds at this time Plan: Monitor for impulsive or inattention (5) Elevated liver enzymes Impression: -AST 172, ALT 77, alk phos 172 today (generally unchanged from previous) - Still with a firm, tight abdominal appearance Plan: Continue to monitor, await MRCP (6) Tachycardia Impression: - Heart rates elevated at 90-110 - + murmur Plan: Continue to hydrate, consider beta blockers if still the case after MRCP
[2018-12-10] MEDS: URSODIOL 250 MG TABLET PO SCH ×2 (11:24→20:51)
[2018-12-10] MEDS: HYDROmorphone PCA 20MG/100ML IV PRN (20:10)
[2018-12-11] MEDS: SODIUM CHLORIDE FLUSH 0.9% 10 ML SYRINGE IVP SCH ×3 (00:28→16:47)
[2018-12-11 05:56] LABS: BASOPHILS # (AUTO) 0.1 10^3/uL (0.0-0.1); BASOPHILS % (AUTO) 1.5 %; EOSINOPHILS % (AUTO) 0.4 %; HGB - HEMOGLOBIN 11.6 g/dL (12.0-16.0); LYMPHOCYTES # (AUTO) 2.6 10^3/uL (1.5-3.5); MEAN CORPUSCULAR HEMOGLOBIN 34.1 pg (27.0-31.0); MEAN CORPUSCULAR HGB CONC 33.3 g/dL (32.0-36.0); MEAN CORPUSCULAR VOLUME 102.2 fL (81.0-99.0); MEAN PLATELET VOLUME 7.4 fL (7.9-10.8); MONOCYTES # (AUTO) 0.8 10^3/uL (0.0-1.0); MONOCYTES % (AUTO) 14.2 %; NEUTROPHILS # (AUTO) 2.3 10^3/uL (1.5-6.6); NEUTROPHILS % (AUTO) 38.9 %; PLT - PLATELET COUNT 151 10^3/uL (130-450); RED CELL DISTRIBUTION WIDTH 26.6 % (12.0-15.0); WHITE BLOOD COUNT 5.8 x10^3/uL (4.8-10.8)
[2018-12-11 06:07] LABS: ALBUMIN 2.5 g/dL (3.2-5.5); ALBUMIN/GLOBULIN RATIO 0.9 (1.0-2.2); ALKALINE PHOSPHATASE 176 IU/L (42-121); ALT ALANINE AMINOTRANSFERASE 66 IU/L (10-60); AST ASPARTATE AMINOTRANSFERASE 135 IU/L (10-42); BUN - BLOOD UREA NITROGEN 5 mg/dL (6-20); CALCIUM 7.1 mg/dL (8.5-10.3); CARBON DIOXIDE - CO2 21 mmol/L (21-32); CHLORIDE 106 mmol/L (101-111); CREATININE < 0.3 mg/dL (0.4-1.0); GLUCOSE 93 mg/dL (70-100); LIPASE 44 U/L (22-51); SODIUM 135 mmol/L (135-145); TOTAL PROTEIN 5.2 g/dL (6.7-8.2)
[2018-12-11 06:27] LABS: PLATELET ESTIMATE, MANUAL NORMAL (130-450,000) (NORMAL); PLATELET MORPHOLOGY NORMAL APPEARANCE (NORMAL)
[2018-12-11] MEDS: SODIUM CHLORIDE 0.9% 1,000 ML IV SCH ×2 (06:38→18:48)
[2018-12-11] MEDS: LORazepam 0.5 MG TABLET PO PRN ×2 (06:39→13:51)
[2018-12-11] MEDS: PANTOPRAZOLE 40 MG TABLET PO SCH (06:40)
[2018-12-11] MEDS: POLYETHYLENE GLYCOL 3350 17 GM PACKET PO SCH (07:55)
[2018-12-11] MEDS: URSODIOL 250 MG TABLET PO SCH (09:32)
[2018-12-11] MEDS: NICOTINE 14 MG PATCH TOP SCH (09:32)
[2018-12-11] MEDS: SACCHAROMYCES BOULARDII 250 MG CAPSULE PO SCH ×2 (09:32→16:42)
[2018-12-11] MEDS: ENOXAPARIN 40 MG/0.4 ML SYRINGE SUBQ SCH (09:32)
[2018-12-11] MEDS: PRENATAL VITAMIN TABLET PO SCH (09:32)
[2018-12-11] MEDS: THIAMINE 100 MG TABLET PO SCH (09:33)
--- NOTE | 2018-12-11 10:39 | PROVIDER PROGRESS NOTE ---
Subjective - Prog Note Date Prog Note Date: 12/11/18 Prog Note Time: 10:36 - Subjective Pt reports feeling: No change Subjective: Lee Ann admits to increased abdominal pain, ongoing RUQ pain, nausea, no appetite, and difficulty with sitting up in bed as this makes her very short of breath. She denies chest pain, fever, chills, insomnia, a rash, blurred vision, dizziness, vomiting, diarrhea or a productive cough. She continues on the Dilaudid MANAGER SURGICAL with good relief. Current Medications - Current Medications Current Medications: Active Medications: Acetaminophen (Tylenol) 650 mg PO Q4HR PRN Enoxaparin Sodium (Lovenox) 40 mg SUBQ DAILY [facility] Hydromorphone HCl (Dilaudid Inj Carp) 1 mg IVP Q2HR PRN Hydromorphone HCl (Dilaudid Quality Control Assessor 20mg/100ml) 20 mg IV PRN PRN; Protocol Sodium Chloride (Normal Saline 0.9%) 1,000 mls @ 100 mls/hr IV .Q10H [facility] Lorazepam (Ativan Inj (Vial)) 1 mg IVP Q30M PRN; Protocol Lorazepam (Ativan) 0.5 mg PO Q6H PRN Nicotine (Nicoderm) 1 patch TOP DAILY [facility] Ondansetron HCl (Zofran Inj) 4 mg IVP Q4HR PRN Pantoprazole Sodium (Protonix) 40 mg PO QDAC [facility] Polyethylene Glycol (Miralax) 17 gm PO DAILY [facility] Multivit/Folic Acid/Iron (Trinatal Rx 1) 1 tab PO DAILY [facility] Prochlorperazine Edisylate (Compazine Inj) 10 mg IVP Q6HR PRN Saccharomyces Boulardii (Florastor) 250 mg PO BIDWM [facility] Thiamine HCl (Vitamin B-1) 100 mg PO DAILY [facility] Ursodiol (Benny 250) 500 mg PO BID [facility] Zolpidem Tartrate (Ambien) 5 mg PO QPM PRN Vitamin K 10 mg IV x1 HOME meds: Spironolactone [Aldactone] 25 mg PO BID 12/06/18 Objective - Vital Signs/Intake & Output Reviewed Vital Signs: Yes Vital Signs: Vital Signs x48h Temp Pulse Resp BP Pulse Ox 12/11/18 09:29 16 12/11/18 09:00 36.8 C 86 18 113/69 96 12/11/18 06:00 18 12/11/18 04:00 16 Intake & Output: Intake & Output 12/08/18 12/09/18 12/10/18 12/11/18 23:59 23:59 23:59 23:59 Intake Total 3748.417 3162.917 4338.000 1428.333 Output Total 350 300 300 Balance 3398.417 2862.917 4038.000 1428.333 - Objective General Appearance: positive: Alert, Moderate distress, Anxious Eyes Bilateral: positive: PERRL Eyes: OU Scleral icterus (moderate today) ENT: positive: Pharyngeal erythema, Dry mucous membranes Neck: positive: No JVD, Trachea midline, Lymphadenopathy (R), Lymphadenopathy (L), Stiff neck Respiratory: positive: Chest non-tender, Rhonchi Cardiovascular: positive: Tachycardia, Systolic murmur, Gallop/S3 Peripheral Pulses: 1+ Radial (R), 1+ Radial (L) Abdomen: positive: Guarding, Hepatomegaly, Abnml bowel sounds, Other (firm, rounded, rotund) Back: positive: Nml inspection Skin: positive: No rash, Warm, Dry, Other (mild jaundice, bronze) Extremities: positive: Non-tender, Pedal edema, Other (dry, flaky skin BLEs) Neurologic/Psychiatric: positive: Oriented x3, CN's nml (2-12), Weakness, Sensory loss, Depressed mood/affect, Other (sluggish speech) Reflexes: Bicep (R): 2+, Bicep (L): 2+ - Lab Results Fish Bones: 12/11/18 05:40 12/11/18 05:40 Other Labs: Lab Results x24hrs 12/11/18 12/11/18 Range/Units 05:40 05:40 WBC 5.8 (4.8-10.8) x10^3/uL RBC 3.40 L (4.20-5.40) 10^6/uL Hgb 11.6 L (12.0-16.0) g/dL Hct 34.8 L (37.0-47.0) % MCV 102.2 H (81.0-99.0) fL MCH 34.1 H (27.0-31.0) pg MCHC 33.3 (32.0-36.0) g/dL RDW 26.6 H (12.0-15.0) % Plt Count 151 (130-450) 10^3/uL MPV 7.4 L (7.9-10.8) fL Neut # (Auto) 2.3 (1.5-6.6) 10^3/uL Lymph # (Auto) 2.6 (1.5-3.5) 10^3/uL Page # (Auto) 0.8 (0.0-1.0) 10^3/uL Eos # (Auto) 0.0 (0.0-0.7) 10^3/uL Baso # (Auto) 0.1 (0.0-0.1) 10^3/uL Absolute Nucleated RBC 0.00 x10^3/uL Nucleated RBC % 0.0 /100WBC Manual Slide Review Indicated Platelet Estimate NORMAL (130-450,000) (NORMAL) Platelet Morphology NORMAL APPEARANCE (NORMAL) RBC Morph Micro Appear 1+ TARGET CELLS (NORMAL) Sodium 135 (135-145) mmol/L Potassium 3.1 L (3.5-5.0) mmol/L Chloride 106 (101-111) mmol/L Carbon Dioxide 21 (21-32) mmol/L Anion Gap 8.0 (6-13) BUN 5 L (6-20) mg/dL Creatinine < 0.3 L (0.4-1.0) mg/dL Estimated GFR (MDRD) (>89) Glucose 93 (70-100) mg/dL Calcium 7.1 L (8.5-10.3) mg/dL Total Bilirubin 10.0 H (0.2-1.0) mg/dL AST 135 H (10-42) IU/L ALT 66 H (10-60) IU/L Alkaline Phosphatase 176 H (42-121) IU/L Total Protein 5.2 L (6.7-8.2) g/dL Albumin 2.5 L (3.2-5.5) g/dL Globulin 2.7 (2.1-4.2) g/dL Albumin/Globulin Ratio 0.9 L (1.0-2.2) Lipase 44 (22-51) U/L ABX Reporting Has patient been on IV antibiotics over the past 48 hours?: No Sepsis Event Note (H) - Evaluation Current Stage of Sepsis: Ruled out Assessment/Plan - Problem List (1) Alcoholic hepatitis with ascites Impression: - A call to , Hepatology was made for a possible transfer to a higher level of care. - Spoke with Conchita Santiago MD who suggested vitamin K 10 mg x1 - Recommend IR to perform an abdominal US to tap abdomen for diagnostic purposes concerning for peritonitis. - Awaiting transfer to for more specialized care Plan: Continue to monitor, watch for bleeding, give Vitamin K, and IR for abdominal paracentesis is pending (2) Acute pancreatitis Impression: - MRCP was ordered, but no available services on the weekend, and NO services until as per MRI department - Spoke with Lee Ann; who refuses a transfer to another hospital to undergo a more urgent MRCP - Started Ursodiol on 12/10/2018 to help dissolve sludge in common bile duct, but this may cause nausea - Dr. Aurelio Rojas was updated on the plan and current bili level - Now Paracentesis US with IR is pending Plan: Continue pain control with dilaudid MANAGER SURGICAL, await paracentesis for diagnostic sampling, general surgery following Qualifiers: Pancreatitis type: alcohol induced Acute pancreatitis complication: unspecified Qualified Code(s): K85.20 - Alcohol induced acute pancreatitis without necrosis or infection (3) Total bilirubin, elevated Impression: - Bili up to 11.4 today, which has increased from admission (5.7) - On exam, abdominal tenderness is appreciated. Primarily to RUQ, and bilateral lower quadrants. - Mild jaundice appreciated on exam, and mild scleral icterus Plan: Continue labs, await paracentesis and possible transfer to Hepatology (4) B12 deficiency anemia Impression: -H/H 11.6/34.8, with an elevated MCV of 102.3, consistent with this disorder Plan: Continue to monitor, transfuse if hemoglobin less than 7 (5) ADD (attention deficit disorder) Impression: - Life long disorder - No prescribed meds at this time Plan: Monitor for impulsive or inattention (6) Elevated liver enzymes Impression: -AST 135, ALT 66, alk phos 176 (generally unchanged from previous) - Still with a firm, tight abdominal appearance - Now with low abdominal pain, RUQ pain Plan: Continue to monitor, await transfer to (7) Tachycardia Impression: - Heart rates elevated at 90-110 - + murmur Plan: Continue to hydrate, consider beta blockers if still the case after MRCP
[2018-12-11] MEDS ORDERED: IOPAMIDOL-300 50 ML VIAL ONE (14:02)
[2018-12-11] MEDS ORDERED: IOPAMIDOL-300 100 ML VIAL ONE (14:02)
--- NOTE | 2018-12-11 14:32 | CONSULTATION NOTE ---
Referring Provider Name of Referring Provider:: Shaggy Zelaya APC Consult Date: 12/11/18 Chief Complaint - Chief Complaint Chief Complaint: abd pain, jaundice History of Present Illness - Admitted From Admitted From:: ER - History Obtained From Records Reviewed: yes History obtained from: pt, records Exam Limitations: complex past medical hx - History of Present Illness HPI Comment/Other: 58 yo female admitted 12/06/18 with diagnosis of alcoholic pancreatitis and hepatitis, with progressive worsening of jaundice, increasing abdominal distention, and an US showing sludge in gallbladder and dilated extrahepatic bile duct to 11 mm concerning for possible distal obstruction. MRCP was ordered but is not presently available. Surgical consultation was requested for additional advice regarding management. Pt has chronic abdominal pain, chronic alcoholism and hx of multiple admits for same. She also has a hx of pancreatic divisum diagnosed approx 15 yrs ago with ERCP (per pt, in [place]) and treated with pancreatic sphincterotomy and stenting. An MRI in 2015 showed pancreatic divisum and a 10 mm common bile duct. An MRCP in Sep showed similar findings. Pt complains of chronic epigastric and RUQ pain over past 18 months, worsening recently with associated N/V prompting current admission. She reports a 30 # wt loss over the same period of time. Neg FH GI tumors; denies prior colonoscopy. Reports several glasses of wine over the past week prior to admission. Her diet consists primarily of nutritional supplements such as Ensure, which temporarily relieve her abd discomfort. No hx GI bleeding but she reports recent nose bleeds and gross hematuria. No recent fever/chills. Previous imaging has shown ascites, an enlarged cirrhotic liver, and evidence of portal hypertension. CT abd/pelvis this admission does not show evidence of intrahepatic bile duct dilation, or pancreatic mass. Ascites is present. History - Past Medical History Cardiovascular: reports: Coronary artery disease, [place], Murmur Respiratory: reports: Shortness of breath Neuro: reports: Headaches, Migraines, Tremors Endocrine/Autoimmune: reports: None GI: reports: GERD, Pancreatitis, Hepatitis, Cirrhosis, Cholelithiasis (sludge in gallbladder), Other. denies: GI bleed RD LAB TECHNICIAN: reports: None : reports: Nocturia HEENT: reports: Chronic sinusitis Psych: reports: Depression, Anxiety, ADD/ADHD, Post traumatic stress disorder Musculoskeletal: reports: Osteoarthritis, Chronic back pain Derm: reports: None MRSA Hx?: No - Past Surgical History General: reports: Other Ortho: reports: Other /RD LAB TECHNICIAN: reports: Tubal ligation, Breast implants HEENT: reports: Other - Family & Social History Family History: Mother: , CVA/TIA, Father: , Hyperlipidemia, Hypertension, [place], Sister: Alive and Well (Epilepsy), Brother: Alive and Well, Other family: Cancer, Diabetes, Type 2 Family History Comment/Other: neg for GI tumors Living arrangement: At home Living Situation: With spouse/s.o. Social History Notes: Patient lives in [place], [place] with her . She has 2 children one son and one daughter. 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 She continues to smoke 3 cigarettes a day and states that she does drink alcohol but only once a week and she drinks 1 large glass of wine. She denies any illicit drug use. - Substance History Abuse: Recurrent use of substance despite neg consequences: Alcohol Dependence: Experiences withdrawal or developed tolerances: Tobacco Tobacco Details: Cigarettes - POLST Patient has POLST: No POLST Status: Full Code Meds/Allgy - Home Medications Home Medications: Ambulatory Orders Medication Instructions Recorded Confirmed Lipase/Protease/Amylase [Bulmaro Rosario 1 each PO TIDWM #90 capsule. 07/13/18 12/06/18 24,000 Units Capsule] Ondansetron Odt [Zofran Odt] 4 mg TL Q6HR PRN #15 tablet 07/13/18 12/06/18 Multivitamin [Multiple Vitamins] 1 each PO DAILY #10 tablet 09/22/18 12/06/18 Spironolactone [Aldactone] 25 mg PO BID 12/06/18 12/06/18 - Allergies Allergies/Adverse Reactions: Allergies Allergy/AdvReac Type Severity Reaction Status Date / Time ketorolac tromethamine * Allergy Severe Hives Verified 12/06/18 05:14 [From Toradol] Review of Systems - Constitutional Constitutional: reports: Poor appetite, Weight loss. denies: Fever, Chills - Ears, Nose & Throat Ears, Nose & Throat: reports: Nosebleeds - Cardiovascular Cariovascular: denies: Chest pain - Respiratory Respiratory: denies: Hemoptysis - Gastrointestinal Gastrointestinal: reports: Abdominal pain, Abdominal distention, Nausea, Vomiting. denies: Rectal bleeding, Black stools, Bloody stools - Genitourinary Genitourinary: reports: Hematuria - Neurological Neurological: reports: General weakness - Hematologic/Lymphatic Hematologic/Lymphatic: denies: Bruising, Blood clots Exam - Vital Signs Reviewed Vital Signs: Yes Vital Signs: Vital Signs x48h Temp Pulse Resp BP BP Pulse Ox 12/11/18 13:52 18 12/11/18 13:00 37.0 C 88 18 134/76 H 96 12/11/18 12:00 14 12/11/18 09:29 16 12/11/18 09:00 36.8 C 86 18 113/69 96 - Physical Exam General Appearance: positive: Alert, Mild distress Eyes Bilateral: positive: Other (marked scleral icterus) ENT: positive: Dry mucous membranes Neck: positive: No JVD, Trachea midline. negative: Lymphadenopathy (R), Lym phadenopathy (L) Respiratory: positive: Chest non-tender, No respiratory distress, Breath sounds nml Cardiovascular: positive: Regular rate & rhythm, No murmur, No gallop Abdomen: positive: Non-tender, No organomegaly, Nml bowel sounds, Other (marked distention, firm; early caput medusae). negative: Guarding, Rebound, Hepa tomegaly, Splenomegaly, Mass Skin: positive: Color nml, No rash, Warm, Dry. negative: Cyanosis Extremities: positive: Pedal edema, Other (muscle wasting evident). negative: Calf tenderness Neurologic/Psychiatric: positive: Oriented x3 Conclusion/Plan - Diagnosis Diagnosis: 1. Abnormal liver function tests; ddx includes liver failure/acute hepatitis, obstructive jaundice. 2. Worsening ascites. 3. Possible evolving coagulopathy - Plan Plan: Would obtain total and direct bilirubin, GGT and repeat INR. If findings suggest hepatic failure/dysfunction rather than obstruction, then no further imaging/evaluation of biliary tree would be indicated at present. If findings suggest obstruction, then a repeat abd/pelvis CT might be helpful pending more definitive evaluation with MRCP. Consider US guided paracentesis for sx ascites. Consider EGD to evaluate for varices and initiate banding therapy if present, when/if acute condition subsides. - Lab Results Fish Bones: 12/11/18 05:40 12/11/18 05:40 Other Lab Results: Bili increased from 4 to 10 since admit, ALT, AST initially moderated elevated, now minimally elevated; lipase initially mildly elevated, now back to nl. - Diagnostic Imaging Results Diagnostic Imaging Results: positive: Final report reviewed, Discussed with radiologist, Read independently Diagnostic Imaging Results Comments: See HPI
[2018-12-11 14:51] LABS: INR 2.4 (0.8-1.2); PT - PROTHROMBIN TIME 26.9 secs (9.9-12.6)
[2018-12-11 14:56] LABS: BILIRUBIN,DIRECT 6.5 mg/dL (0.1-0.5); BILIRUBIN,INDIRECT 4.9 mg/dL; BILIRUBIN,TOTAL 11.4 mg/dL (0.2-1.0)
[2018-12-11] MEDS ORDERED: IOPAMIDOL-300 100 ML VIAL IVP ONE (16:12)
--- NOTE | 2018-12-11 16:31 | CT Report ---
Reason: elevated bili, abdominal pain Procedure Date: 12/11/2018 Accession Number: [id number] / [id number] Procedure: CT - Abdomen/Pelvis W CPT Code: FULL RESULT: EXAM: CT ABDOMEN AND PELVIS EXAM DATE: 12/11/2018 03:58 PM. CLINICAL HISTORY: Elevated bili, abdominal pain. COMPARISONS: ABDOMEN/PELVIS W/ 12/06/2018 6:24 AM. TECHNIQUE: Routine helical CT imaging was performed through the abdomen and pelvis. IV contrast: 100 cc Isovue-300. Enteric contrast: Yes. Reconstructions: Coronal and sagittal. In accordance with CT protocol optimization, one or more of the following dose reduction techniques were utilized for this exam: automated exposure control, adjustment of mA and/or KV based on patient size, or use of iterative reconstructive technique. FINDINGS: Lung Bases: Small bilateral pleural effusions with underlying atelectasis in the posterior sulci. Small hiatal hernia with oral contrast in the distal esophagus most compatible with reflux. Liver: Diffusely hypoattenuated parenchyma with marked heterogeneity. Probable cysts or hemangiomata along the right lobe image best seen on sagittal image 59. No definite suspicious lesion. Recanalization of umbilical vein. Gallbladder/Bile Ducts: Distended gallbladder. No ductal dilation. Spleen: Normal. Pancreas: Normal. Adrenal Glands: Normal. Kidneys: Tiny probable cortical cysts. Punctate nonobstructing calcification in left mid kidney. Otherwise unremarkable. No hydronephrosis. Peritoneal Cavity/Bowel: Moderate amount of ascites. No free air, bowel dilation, more lymphadenopathy. The appendix is well visualized and normal. Pelvic Organs: Normal. The bladder and visualized pelvic organs are within normal limits. Vasculature: No aneurysms or other significant abnormality. Bones: No significant abnormality. Other: Bilateral decompressed breast implants. Anasarca. IMPRESSION: 1. Fatty liver with recanalization of umbilical vein and a moderate amount of ascites. Ascites has increased since previous exam. 2. Small bilateral pleural effusions with underlying atelectasis not present on previous exam. 3. Anasarca, new since previous exam. 4. Other chronic or incidental findings. RADIA
[2018-12-11] MEDS: HYDROmorphone 1 MG/ML CARPUJECT IVP PRN (16:44)
[2018-12-11] MEDS ORDERED: PHYTONADIONE INJ (ADULT) 10 MG in SODIUM CHLORIDE 0.9% 50 ML IV ONE (17:50)
[2018-12-11] MEDS: SODIUM CHLORIDE FLUSH 0.9% 10 ML SYRINGE IVP PRN (18:49)
[2018-12-12] MEDS: SODIUM CHLORIDE FLUSH 0.9% 10 ML SYRINGE IVP SCH ×2 (00:05→08:25)
[2018-12-12] MEDS: SODIUM CHLORIDE FLUSH 0.9% 10 ML SYRINGE IVP PRN (00:13)
[2018-12-12] MEDS: HYDROmorphone PCA 20MG/100ML IV PRN ×2 (02:58→06:03)
[2018-12-12] MEDS: SODIUM CHLORIDE 0.9% 1,000 ML IV SCH (03:49)
[2018-12-12 05:48] LABS: BASOPHILS % (AUTO) 2.5 %; EOSINOPHILS % (AUTO) 0.2 %; HGB - HEMOGLOBIN 10.6 g/dL (12.0-16.0); LYMPHOCYTES % (AUTO) 40.3 %; MEAN CORPUSCULAR HEMOGLOBIN 34.1 pg (27.0-31.0); MEAN CORPUSCULAR HGB CONC 33.5 g/dL (32.0-36.0); MEAN CORPUSCULAR VOLUME 101.8 fL (81.0-99.0); MEAN PLATELET VOLUME 7.5 fL (7.9-10.8); MONOCYTES % (AUTO) 14.3 %; NEUTROPHILS % (AUTO) 42.7 %; PLT - PLATELET COUNT 157 10^3/uL (130-450); RED BLOOD COUNT 3.12 10^6/uL (4.20-5.40); RED CELL DISTRIBUTION WIDTH 26.7 % (12.0-15.0); WHITE BLOOD COUNT 4.9 x10^3/uL (4.8-10.8)
[2018-12-12 05:58] LABS: ALBUMIN 2.2 g/dL (3.2-5.5); ALBUMIN/GLOBULIN RATIO 0.8 (1.0-2.2); ALKALINE PHOSPHATASE 159 IU/L (42-121); ALT ALANINE AMINOTRANSFERASE 60 IU/L (10-60); AST ASPARTATE AMINOTRANSFERASE 117 IU/L (10-42); BILIRUBIN,TOTAL 10.4 mg/dL (0.2-1.0); BUN - BLOOD UREA NITROGEN < 5 mg/dL (6-20); CALCIUM 7.1 mg/dL (8.5-10.3); CARBON DIOXIDE - CO2 23 mmol/L (21-32); CHLORIDE 105 mmol/L (101-111); GLUCOSE 98 mg/dL (70-100); SODIUM 135 mmol/L (135-145); TOTAL PROTEIN 5.1 g/dL (6.7-8.2)
[2018-12-12 05:59] LABS: CREATININE < 0.3 mg/dL (0.4-1.0)
[2018-12-12 06:01] LABS: INR 2.1 (0.8-1.2); PT - PROTHROMBIN TIME 23.2 secs (9.9-12.6)
[2018-12-12] MEDS: PANTOPRAZOLE 40 MG TABLET PO SCH (06:08)
[2018-12-12 06:14] LABS: ABNORMAL LYMPHS % (MANUAL) 0 %; BAND NEUTROPHILS % (MANUAL) 0 %
[2018-12-12 06:56] LABS: BASOPHILS % (MANUAL) 1 %; LYMPHOCYTES # (MANUAL) 0.7 10^3/uL (1.5-3.5); LYMPHOCYTES % (MANUAL) 14 %; MONOCYTES # (MANUAL) 0.7 10^3/uL (0.0-1.0); NEUTROPHILS # (MANUAL) 3.4 10^3/uL (1.5-6.6); NEUTROPHILS % (MANUAL) 70 %
[2018-12-12 06:57] LABS: PLATELET ESTIMATE, MANUAL NORMAL (130-450,000) (NORMAL)
[2018-12-12] MEDS ORDERED: SODIUM CHLORIDE 0.9% 1,000 ML IV SCH (07:33)
[2018-12-12] MEDS ORDERED: POTASSIUM CHLORIDE 20 MEQ TABLET PO SCH (08:00)
[2018-12-12] MEDS ORDERED: SODIUM CHLORIDE 0.9% 50 ML IV ONE (08:06)
[2018-12-12] MEDS: POTASSIUM CHLOR 10 MEQ/100 ML 10 MEQ/100 ML BAG IV SCH ×2 (08:22→09:24)
[2018-12-12] MEDS: NICOTINE 14 MG PATCH TOP SCH (08:24)
[2018-12-12] MEDS: SACCHAROMYCES BOULARDII 250 MG CAPSULE PO SCH (08:24)
[2018-12-12] MEDS: POLYETHYLENE GLYCOL 3350 17 GM PACKET PO SCH (08:24)
[2018-12-12] MEDS: PRENATAL VITAMIN TABLET PO SCH (08:24)
[2018-12-12] MEDS ORDERED: CALCIUM GLUCONATE 1,000 MG in SODIUM CHLORIDE 0.9% 50 ML IV ONE (08:30)
[2018-12-12] MEDS: LORazepam 0.5 MG TABLET PO PRN ×3 (11:17→16:04)
[2018-12-12] MEDS ORDERED: BUFFERED LIDOCAINE 10 ML SYRINGE ONE (11:41)
[2018-12-12] MEDS ORDERED: SODIUM CHLORIDE 0.9% 500 ML IV PRN (13:12)
--- NOTE | 2018-12-12 13:46 | DISCHARGE SUMMARY ---
"Discharge Summary Discharge Date: 12/12/18 Discharging Provider: ARSHAD Primary Care Provider: Phyllis Smith Discharge Disposition: 02 Transfer Acute Care Hosp Discharge Facility Name: [facility] - DIAGNOSES Admission Diagnoses: (1) Acute alcoholic pancreatitis (2) elevated Lactic acidosis (3) Elevated liver enzymes and total bilirubin (4) Alcoholism /alcohol abuse with hepatic ascites (5) Cigarette smoker (6) Cough productive of yellow sputum (7) Hyponatremia (8) Hypokalemia Discharge Diagnoses with Status of Each Condition: (1) Acute alcoholic pancreatitis with abdominal pain (2) elevated Lactic acidosis (3) Elevated liver enzymes and total bilirubin (4) Alcoholism /alcohol abuse with hepatic ascites (5) Cigarette smoker (6) Cough productive of yellow sputum (7) Hyponatremia (8) Hypokalemia - HPI History of Present Illness: Lee Ann Jones is a 58-year old female with a past medical history significant of alcohol dependence, tobacco dependence, opioid dependence, anxiety, clausterphobia, osteoarthritis, depression, PTSD, ADD, CAD, [place], migraines, tremors, pancreatitis, and cholelithiasis, who came to the ED with a primary complaint of abdominal pain. She report she just drunk one cup of alcohol on last night, then she became abdominal pain. Pain was sharp, was located on right upper and middle quadrant of abdomen. The pain is the similar as her previous admission's complaints. Pt was admitted to our facility numerous times for acute alcoholic pancreatitis as well as acute alcohol hepatitis. pt had hx of alcoholic liver disease with ascites. She usually drinks approximately a bottle of wine a day in the previous. pt also complain of cough with yellowish sputum today. CXR reveals unremarkable. CT of abdomen and pelvis reveals heterogeneous liver, interval decrease in volume of ascites, stable recanalization of umbilical vein, No SBO or perforation, no localized peripancreatic inflammation. Pt has positive level of alcohol in UDS, elevated lactic acid, elevated total bililubin, and liver enzyme, and slightly elevated Lipase 190. pt also report lower degree fever at home. pt denies chest chest pain, headache, shortness of breath, nausea, vomiting or diarrhea. pt is admitted for above medical reason. - CONSULTS | PROCEDURES Consultations: Dr. Aurelio Rojas, IR Procedures: paracentesis - HOSPITAL COURSE Hospital Course: (1) Acute alcoholic pancreatitis with abdominal pain pt's upper quadrant pain is still not released. Lipase is decreased to normal arrange. pt has hx of pancreatic divisum diagnosed approx 15 yrs ago with ERCP and treated with pancreatic sphincterotomy and stenting. US reveals dilution to 11mm at distal CBD but the latest CT did not reveals dilution. we even do not have MRCP study now. pt require GI speciality and high level care. pt is transfer to [facility] for high level of care (2) elevated Lactic acidosis resolved (3) Elevated liver enzymes and total bilirubin pt had steady elevated total bilirubin from 4.8 to 10.4 now, and jaundice. Pt also had elevated direct bili and elevated GGT, elevated liver enzyme, and elevated PT/INR. pt has no anticoagulant. it indicate pt may have liver failure, distal CBD blockage or stenosis. pt need more studies, need high level of care, may need side laster tack as well. (4) Alcoholism /alcohol abuse with hepatic ascites pt had paracentesis today, pt had 3.5 liter of fluid draw. The gram staining and culture are pending. (5) Cigarette smoker request nicotin patch (6) Cough productive of yellow sputum resolved, no more cough (7) Hyponatremia resolved (8) Hypokalemia replaced - ALLERGIES Allergies/Adverse Reactions: Allergies Allergy/AdvReac Type Severity Reaction Status Date / Time ketorolac tromethamine * Allergy Severe Hives Verified 12/06/18 05:14 [From Toradol] - MEDICATIONS Home Medications: Ambulatory Orders Medication Instructions Recorded Confirmed Lipase/Protease/Amylase [Bulmaro Rosario 1 each PO TIDWM #90 capsule. 07/13/18 12/06/18 24,000 Units Capsule] Ondansetron Odt [Zofran Odt] 4 mg TL Q6HR PRN #15 tablet 07/13/18 12/06/18 Multivitamin [Multiple Vitamins] 1 each PO DAILY #10 tablet 09/22/18 12/06/18 Spironolactone [Aldactone] 25 mg PO BID 12/06/18 12/06/18 - PHYSICAL EXAM AT DISCHARGE General Appearance: positive: Alert, Mild distress. negative: Lethargic Eyes Bilateral: positive: Normal inspection, PERRL, No lid inflammation, Conjunctivae nml ENT: positive: ENT inspection nml, Pharynx nml, No signs of dehydration. negative: Purulent nasal drainage, Pharyngeal erythema, Oral lesions Neck: positive: Nml inspection, Thyroid nml, No JVD, Trachea midline. negative: Thyromegaly, Lymphadenopathy (R), Lymphadenopathy (L), Stiff neck, Swelling/bruising, Tracheal deviation Respiratory: positive: Chest non-tender, No respiratory distress, Breath sounds nml. negative: Wheezes, Rales, Rhonchi Cardiovascular: positive: Regular rate & rhythm, No murmur, No gallop. negative: Irregularly irregular, Extrasystoles, Tachycardia, Bradycardia, JVD present, Systolic murmur, Diastolic murmur Peripheral Pulses: positive: 2+ Abdomen: positive: Tenderness, Abnml bowel sounds. negative: No distention, Guarding, Rebound Back: positive: Nml inspection. negative: CVA tenderness (R), CVA tenderness (L) Skin: positive: Color nml, No rash, Warm, Dry. negative: Cyanosis, Diaphoresis, Pallor Extremities: positive: Non-tender, Full ROM, Nml appearance. negative: Calf tenderness, Joint swelling, Brian's sign/cords Neurologic/Psychiatric: positive: Oriented x3, Sensation nml, Mood/affect nml. negative: Weakness, Sensory loss, Facial droop, Slurred/abnml speech, Depressed mood/affect - LABS Result Diagrams: 12/12/18 05:10 12/12/18 05:10 - SEPSIS Current Stage of Sepsis: Ruled out - FOLLOW UP Follow Up: transfer to [facility] for high level care - TIME SPENT Time Spent in Discharge (Minutes): 60"
--- NOTE | 2018-12-12 13:49 | Ultrasound Report ---
Reason: evaluate for peritonitis Procedure Date: 12/12/2018 Accession Number: [id number] / [id number] Procedure: US - Abdominal Paracentesis CPT Code: FULL RESULT: EXAM: ULTRASOUND-GUIDED PARACENTESIS EXAM DATE: 12/12/2018 12:36 PM. CLINICAL HISTORY: Evaluate for peritonitis. COMPARISON: ABDOMINAL PARACENTESIS 05/31/2018 11:35 AM. TECHNIQUE: Risks, benefits, and alternatives to the procedure were discussed with the patient. All questions answered. Written and verbal consent obtained. Patient was placed in the supine position and the skin overlying the ascites marked with sonographic guidance. The skin was sterilely prepped and draped, and 1% buffered lidocaine was used for local anesthesia. An 18-gauge shopandsave catheter was advanced into the peritoneal ascites and fluid aspirated. Upon completion, the catheter was removed. FINDINGS: A total of 3200 mL of fluid was removed without immediate complication. Patient tolerated procedure well. IMPRESSION: Ultrasound-guided paracentesis without immediate complications. Per prior instruction, samples were sent for Gram stain, culture and sensitivity. JALEN
[2018-12-12 15:58] VITALS: BP 104/55
[2018-12-12] MEDS ORDERED: BUFFERED LIDOCAINE 10 ML SYRINGE IU ONE (18:14)
== END 2018-12-12 14:05 | disposition short-term general hospital (02) | DRG 439 ==
LOC: EDUNIT# → EDBD → ED 05:10 → MS2 08:33
PROVIDERS: ADMIT Nurse Practitioner Gerontology; ATTEND Nurse Practitioner Gerontology
PROC: 0W9G3ZX Drainage of Peritoneal Cavity, Percutaneous Approach, Diagnostic (ICD-10-PCS; principal; 2018-12-12)
DX: K85.20 Alcohol induced acute pancreatitis without necrosis or infection (principal); E87.2 Acidosis; E87.1 Hypo-osmolality and hyponatremia; F11.20 Opioid dependence, uncomplicated; K86.0 Alcohol-induced chronic pancreatitis; I25.10 Atherosclerotic heart disease of native coronary artery without angina pectoris; I25.2 Old myocardial infarction; R01.1 Cardiac murmur, unspecified; J44.9 Chronic obstructive pulmonary disease, unspecified; G43.909 Migraine, unspecified, not intractable, without status migrainosus; R25.1 Tremor, unspecified; K21.9 Gastro-esophageal reflux disease without esophagitis; K70.31 Alcoholic cirrhosis of liver with ascites; K80.20 Calculus of gallbladder without cholecystitis without obstruction; R35.1 Nocturia; J32.9 Chronic sinusitis, unspecified; F32.9 Major depressive disorder, single episode, unspecified; F41.9 Anxiety disorder, unspecified; F90.9 Attention-deficit hyperactivity disorder, unspecified type; F43.10 Post-traumatic stress disorder, unspecified; M19.90 Unspecified osteoarthritis, unspecified site; G89.29 Other chronic pain; M54.9 Dorsalgia, unspecified; F17.210 Nicotine dependence, cigarettes, uncomplicated; E87.6 Hypokalemia; R79.89 Other specified abnormal findings of blood chemistry; F10.20 Alcohol dependence, uncomplicated; F40.240 Claustrophobia; K70.11 Alcoholic hepatitis with ascites; E80.6 Other disorders of bilirubin metabolism; D51.9 Vitamin B12 deficiency anemia, unspecified; R00.0 Tachycardia, unspecified
CPT/HCPCS: 36415; 49083; 71046; 74177; 76705; 80053; 80306; 80320; 81001; 82247; 82248; 82977; 83605; 83690; 83735; 84484; 85025; 85610; 87040; 87070; 87205; 93005; 96365; 96368; 96375; 96376; 99284; A9270; J1170; J1650; J2060; J2270; J2765; J7040; Q9967; 81003; 87086

== ENCOUNTER 2018-12-20 13:51 | Outpatient (CLI) | payer MEDICAID ==
[2018-12-20 19:30] LABS: ALBUMIN 2.7 g/dL (3.2-5.5); ALBUMIN/GLOBULIN RATIO 0.7 (1.0-2.2); BILIRUBIN,TOTAL 8.4 mg/dL (0.2-1.0); CALCIUM 8.4 mg/dL (8.5-10.3); CREATININE 0.7 mg/dL (0.4-1.0); TOTAL PROTEIN 6.8 g/dL (6.7-8.2)
[2018-12-20 19:42] LABS: BASOPHILS # (AUTO) 0.1 10^3/uL (0.0-0.1); BASOPHILS % (AUTO) 0.8 %; EOSINOPHILS % (AUTO) 0.3 %; HGB - HEMOGLOBIN 12.6 g/dL (12.0-16.0); LYMPHOCYTES # (AUTO) 1.4 10^3/uL (1.5-3.5); LYMPHOCYTES % (AUTO) 12.8 %; MEAN CORPUSCULAR HEMOGLOBIN 33.8 pg (27.0-31.0); MEAN CORPUSCULAR HGB CONC 32.5 g/dL (32.0-36.0); MEAN CORPUSCULAR VOLUME 103.9 fL (81.0-99.0); MEAN PLATELET VOLUME 9.2 fL (7.9-10.8); MONOCYTES # (AUTO) 0.8 10^3/uL (0.0-1.0); MONOCYTES % (AUTO) 7.2 %; NEUTROPHILS # (AUTO) 8.8 10^3/uL (1.5-6.6); NEUTROPHILS % (AUTO) 78.9 %; PLT - PLATELET COUNT 250 10^3/uL (130-450); RED BLOOD COUNT 3.74 10^6/uL (4.20-5.40); RED CELL DISTRIBUTION WIDTH 25.1 % (12.0-15.0); WHITE BLOOD COUNT 11.1 x10^3/uL (4.8-10.8)
== END 2018-12-20 23:59 | disposition home or self-care (01) ==
LOC: LAB.N 13:51
PROVIDERS: ATTEND Family Medicine
DX: K86.1 Other chronic pancreatitis (principal); R10.9 Unspecified abdominal pain; N18.2 Chronic kidney disease, stage 2 (mild); K72.90 Hepatic failure, unspecified without coma
CPT/HCPCS: 36415; 80053; 82150; 83690; 85025; 85610

== ENCOUNTER 2018-12-25 09:05 | Outpatient (CLI) | payer MEDICAID ==
[2018-12-25 09:48] LABS: BASOPHILS # (AUTO) 0.1 10^3/uL (0.0-0.1); BASOPHILS % (AUTO) 0.6 %; EOSINOPHILS # (AUTO) 0.2 10^3/uL (0.0-0.7); EOSINOPHILS % (AUTO) 1.3 %; HGB - HEMOGLOBIN 12.8 g/dL (12.0-16.0); LYMPHOCYTES # (AUTO) 1.8 10^3/uL (1.5-3.5); LYMPHOCYTES % (AUTO) 15.5 %; MEAN CORPUSCULAR HEMOGLOBIN 35.1 pg (27.0-31.0); MEAN CORPUSCULAR HGB CONC 33.7 g/dL (32.0-36.0); MEAN CORPUSCULAR VOLUME 104.2 fL (81.0-99.0); MEAN PLATELET VOLUME 8.4 fL (7.9-10.8); MONOCYTES # (AUTO) 0.9 10^3/uL (0.0-1.0); MONOCYTES % (AUTO) 8.1 %; NEUTROPHILS # (AUTO) 8.5 10^3/uL (1.5-6.6); NEUTROPHILS % (AUTO) 74.5 %; PLT - PLATELET COUNT 265 10^3/uL (130-450); RED BLOOD COUNT 3.64 10^6/uL (4.20-5.40); RED CELL DISTRIBUTION WIDTH 20.6 % (12.0-15.0); WHITE BLOOD COUNT 11.4 x10^3/uL (4.8-10.8)
[2018-12-25 09:54] LABS: ALBUMIN 2.7 g/dL (3.2-5.5); ALBUMIN/GLOBULIN RATIO 0.6 (1.0-2.2); BILIRUBIN,TOTAL 6.7 mg/dL (0.2-1.0); CALCIUM 8.7 mg/dL (8.5-10.3); CREATININE 0.5 mg/dL (0.4-1.0); TOTAL PROTEIN 6.9 g/dL (6.7-8.2)
[2018-12-25 10:15] LABS: PLATELET ESTIMATE, MANUAL NORMAL (130-450,000) (NORMAL); PLATELET MORPHOLOGY NORMAL APPEARANCE (NORMAL)
== END 2018-12-25 09:06 | disposition home or self-care (01) ==
LOC: LAB 09:05
PROVIDERS: ATTEND Family Medicine
DX: K72.90 Hepatic failure, unspecified without coma (principal); K86.1 Other chronic pancreatitis
CPT/HCPCS: 36415; 80053; 82150; 83690; 85025

== ENCOUNTER 2019-01-01 09:03 | Outpatient (CLI) | payer MEDICAID ==
[2019-01-01 09:43] LABS: BASOPHILS # (AUTO) 0.1 10^3/uL (0.0-0.1); BASOPHILS % (AUTO) 1.1 %; EOSINOPHILS # (AUTO) 0.1 10^3/uL (0.0-0.7); EOSINOPHILS % (AUTO) 1.3 %; HGB - HEMOGLOBIN 13.3 g/dL (12.0-16.0); LYMPHOCYTES # (AUTO) 1.3 10^3/uL (1.5-3.5); LYMPHOCYTES % (AUTO) 12.5 %; MEAN CORPUSCULAR HEMOGLOBIN 35.3 pg (27.0-31.0); MEAN CORPUSCULAR HGB CONC 33.5 g/dL (32.0-36.0); MEAN CORPUSCULAR VOLUME 105.2 fL (81.0-99.0); MEAN PLATELET VOLUME 8.2 fL (7.9-10.8); MONOCYTES # (AUTO) 0.8 10^3/uL (0.0-1.0); MONOCYTES % (AUTO) 7.7 %; NEUTROPHILS # (AUTO) 8.2 10^3/uL (1.5-6.6); NEUTROPHILS % (AUTO) 77.4 %; PLT - PLATELET COUNT 271 10^3/uL (130-450); RED BLOOD COUNT 3.76 10^6/uL (4.20-5.40); RED CELL DISTRIBUTION WIDTH 17.7 % (12.0-15.0); WHITE BLOOD COUNT 10.5 x10^3/uL (4.8-10.8)
[2019-01-01 09:57] LABS: ALBUMIN 3.2 g/dL (3.2-5.5); ALBUMIN/GLOBULIN RATIO 0.7 (1.0-2.2); BILIRUBIN,TOTAL 4.4 mg/dL (0.2-1.0); CALCIUM 9.1 mg/dL (8.5-10.3); CREATININE 0.7 mg/dL (0.4-1.0); TOTAL PROTEIN 7.9 g/dL (6.7-8.2)
== END 2019-01-01 09:04 | disposition home or self-care (01) ==
LOC: LAB 09:03
PROVIDERS: ATTEND Family Medicine
DX: K72.90 Hepatic failure, unspecified without coma (principal); K86.1 Other chronic pancreatitis; R10.9 Unspecified abdominal pain
CPT/HCPCS: 36415; 80053; 82150; 83690; 85025; 85610

== ENCOUNTER 2019-01-08 08:30 | Outpatient (CLI) | payer MEDICAID ==
[2019-01-08 09:02] LABS: BASOPHILS # (AUTO) 0.1 10^3/uL (0.0-0.1); BASOPHILS % (AUTO) 0.6 %; EOSINOPHILS # (AUTO) 0.2 10^3/uL (0.0-0.7); EOSINOPHILS % (AUTO) 1.5 %; HGB - HEMOGLOBIN 14.4 g/dL (12.0-16.0); LYMPHOCYTES # (AUTO) 2.1 10^3/uL (1.5-3.5); LYMPHOCYTES % (AUTO) 20.3 %; MEAN CORPUSCULAR HEMOGLOBIN 34.8 pg (27.0-31.0); MEAN CORPUSCULAR HGB CONC 33.1 g/dL (32.0-36.0); MEAN CORPUSCULAR VOLUME 105.2 fL (81.0-99.0); MEAN PLATELET VOLUME 8.1 fL (7.9-10.8); MONOCYTES # (AUTO) 0.9 10^3/uL (0.0-1.0); MONOCYTES % (AUTO) 8.7 %; NEUTROPHILS # (AUTO) 7.1 10^3/uL (1.5-6.6); NEUTROPHILS % (AUTO) 68.9 %; PLT - PLATELET COUNT 265 10^3/uL (130-450); RED BLOOD COUNT 4.14 10^6/uL (4.20-5.40); RED CELL DISTRIBUTION WIDTH 15.8 % (12.0-15.0); WHITE BLOOD COUNT 10.4 x10^3/uL (4.8-10.8)
[2019-01-08 09:12] LABS: ALBUMIN 3.6 g/dL (3.2-5.5); ALBUMIN/GLOBULIN RATIO 0.7 (1.0-2.2); BILIRUBIN,TOTAL 3.2 mg/dL (0.2-1.0); CALCIUM 9.7 mg/dL (8.5-10.3); CREATININE 0.5 mg/dL (0.4-1.0); TOTAL PROTEIN 8.5 g/dL (6.7-8.2)
== END 2019-01-08 08:31 | disposition home or self-care (01) ==
LOC: LAB 08:30
PROVIDERS: ATTEND Family Medicine
DX: K72.90 Hepatic failure, unspecified without coma (principal); K86.1 Other chronic pancreatitis
CPT/HCPCS: 36415; 80053; 82150; 83690; 85025; 85610

== ENCOUNTER 2019-02-11 17:06 | Outpatient (CLI) | payer MEDICAID | END 2019-02-11 17:07 | disposition critical access hospital (66) | LOC: EMS 17:06 | PROVIDERS: ATTEND Surgery | DX: R10.9 Unspecified abdominal pain (principal); S00.11XA Contusion of right eyelid and periocular area, initial encounter; S80.12XA Contusion of left lower leg, initial encounter; S80.11XA Contusion of right lower leg, initial encounter; S30.1XXA Contusion of abdominal wall, initial encounter; X58.XXXA Exposure to other specified factors, initial encounter | CPT/HCPCS: A0425; A0429; A0999 ==

== ENCOUNTER 2019-02-11 17:15 | Inpatient (IN) | payer MEDICAID ==
[~2019-02-11 17:15] MED LIST: IOVERSOL 320 100 ML VIAL IVP ONE
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
[2019-02-11 17:37] LABS: BASOPHILS # (AUTO) 0.1 10^3/uL (0.0-0.1); BASOPHILS % (AUTO) 0.6 %; EOSINOPHILS # (AUTO) 0.1 10^3/uL (0.0-0.7); EOSINOPHILS % (AUTO) 0.7 %; HGB - HEMOGLOBIN 13.2 g/dL (12.0-16.0); LYMPHOCYTES # (AUTO) 2.7 10^3/uL (1.5-3.5); LYMPHOCYTES % (AUTO) 31.1 %; MEAN CORPUSCULAR HEMOGLOBIN 33.1 pg (27.0-31.0); MEAN CORPUSCULAR HGB CONC 34.7 g/dL (32.0-36.0); MEAN CORPUSCULAR VOLUME 95.3 fL (81.0-99.0); MEAN PLATELET VOLUME 7.3 fL (7.9-10.8); MONOCYTES # (AUTO) 0.6 10^3/uL (0.0-1.0); MONOCYTES % (AUTO) 7.3 %; NEUTROPHILS # (AUTO) 5.2 10^3/uL (1.5-6.6); NEUTROPHILS % (AUTO) 60.3 %; PLT - PLATELET COUNT 126 10^3/uL (130-450); RED BLOOD COUNT 3.99 10^6/uL (4.20-5.40); RED CELL DISTRIBUTION WIDTH 14.5 % (12.0-15.0); WHITE BLOOD COUNT 8.6 x10^3/uL (4.8-10.8)
[2019-02-11] MEDS ORDERED: SODIUM CHLORIDE 0.9% 1,000 ML IV ONE ×2 (17:45→19:29)
[2019-02-11 17:49] LABS: ALBUMIN 3.8 g/dL (3.2-5.5); BILIRUBIN,TOTAL 1.2 mg/dL (0.2-1.0); CALCIUM 8.3 mg/dL (8.5-10.3); CREATININE 0.3 mg/dL (0.4-1.0); TOTAL PROTEIN 7.6 g/dL (6.7-8.2)
[2019-02-11] MEDS ORDERED: IOVERSOL 320 100 ML VIAL IVP ONE ×2 (17:59→18:29)
--- NOTE | 2019-02-11 18:48 | XRAY Report ---
Reason: chest pain Procedure Date: 02/11/2019 Accession Number: [id number] / [id number] Procedure: XR - Chest 1 View X-Ray CPT Code: 02270 FULL RESULT: EXAM: CHEST RADIOGRAPHY EXAM DATE: 02/11/2019 06:00 PM. CLINICAL HISTORY: Chest pain. COMPARISON: CHEST 2 VIEW 12/06/2018 8:49 AM. TECHNIQUE: 1 view. FINDINGS: Lungs/Pleura: No focal opacities evident. No pleural effusion. No pneumothorax. Mediastinum: Within exam limitations, the cardiomediastinal contour is normal. Other: None. IMPRESSION: No acute intrathoracic plain film abnormality. RADIA
--- NOTE | 2019-02-11 18:59 | CT Report ---
Reason: trauma Procedure Date: 02/11/2019 Accession Number: [id number] / [id number] Procedure: CT - HEAD WO CPT Code: FULL RESULT: EXAM: CT HEAD WITHOUT CONTRAST. EXAM DATE: 02/11/2019 06:11 PM. CLINICAL HISTORY: Trauma. COMPARISON: None. TECHNIQUE: Multiaxial CT images were obtained from the foramen magnum to the vertex. Reformats: Sagittal and coronal. IV contrast: None. In accordance with CT protocol optimization, one or more of the following dose reduction techniques were utilized for this exam: automated exposure control, adjustment of mA and/or KV based on patient size, or use of iterative reconstructive technique. FINDINGS: Parenchyma: No intraparenchymal hemorrhage. No evidence of mass, midline shift, or CT findings of infarction. Mcbride-white differentiation is distinct. Extraaxial Spaces: Normal for age. No subdural or epidural collections identified. Ventricles: Normal in size and position. Sinuses and Orbits: Imaged paranasal sinuses, orbits, and mastoids show no significant abnormality. Bones: No evidence of fracture or calvarial defect. Other: A mucus retention cyst is in the right maxillary sinus. IMPRESSION: No acute findings. RADIA
--- NOTE | 2019-02-11 19:02 | CT Report ---
Reason: trauma Procedure Date: 02/11/2019 Accession Number: [id number] / [id number] Procedure: CT - MAXILLOFACIAL WO CPT Code: FULL RESULT: EXAM: CT MAXILLOFACIAL WITHOUT CONTRAST. EXAM DATE: 02/11/2019 06:11 PM. CLINICAL HISTORY: Trauma. COMPARISONS: Orbit exam 08/20/2014. TECHNIQUE: Thin-section axial images were acquired of the face without contrast. Post-processing: Coronal and sagittal reformats. Other: None. In accordance with CT protocol optimization, one or more of the following dose reduction techniques were utilized for this exam: automated exposure control, adjustment of mA and/or KV based on patient size, or use of iterative reconstructive technique. FINDINGS: Soft Tissue: The infratemporal fossa and parapharyngeal spaces are unremarkable. Orbits: Symmetric and unremarkable. Bones: Prominent degenerative changes in the visualized cervical spine. Mild osteopenia is present. Temporomandibular Joints: The temporomandibular joints are symmetric and normally located. Sinuses: Normal. No mucosal thickening or fluid levels. Other: A mucus retention cyst is in the right maxillary sinus. There is mild left maxillary mucosal thickening. No fractures. IMPRESSION: No traumatic findings. RADIA
--- NOTE | 2019-02-11 19:05 | CT Report ---
Reason: abd pain Procedure Date: 02/11/2019 Accession Number: [id number] / [id number] Procedure: CT - Abdomen/Pelvis W CPT Code: FULL RESULT: EXAM: CT ABDOMEN AND PELVIS EXAM DATE: 02/11/2019 06:28 PM. CLINICAL HISTORY: Abdomen pain. COMPARISONS: ABDOMEN/PELVIS W/ 12/11/2018 3:47 PM. TECHNIQUE: Routine helical CT imaging was performed through the abdomen and pelvis. IV contrast: 80 cc of Optiray 320. Enteric contrast: No. Reconstructions: Coronal and sagittal. In accordance with CT protocol optimization, one or more of the following dose reduction techniques were utilized for this exam: automated exposure control, adjustment of mA and/or KV based on patient size, or use of iterative reconstructive technique. FINDINGS: Lung Bases: Collapsed breast implants noted. Esophageal varices noted. Liver: Diffuse low density. Mild heterogeneity. Gallbladder/Bile Ducts: Unremarkable. Spleen: Normal. Pancreas: Normal. Adrenal Glands: Normal. Kidneys: Normal. No masses or hydronephrosis. Peritoneal Cavity/Bowel: Mild ascites, less than prior exam. No free air or adenopathy. No masses. Diffuse wall thickening involving the right colon and hepatic flexure. The appendix is well visualized and normal. Pelvic Organs: Normal. The bladder and visualized pelvic organs are within normal limits. Vasculature: No aortic aneurysm. Recanalized umbilical vein noted. Bones: Chronic L2 compression fracture. Degenerative disk disease at L4-L5 and L5-S1. Other: None. IMPRESSION: 1. Fatty mildly heterogeneous liver likely due to cirrhosis, with esophageal varices, recanalized umbilical vein, and mild ascites, less than prior exam. 2. Right-sided colitis, likely secondary to portal hypertension. RADIA
[2019-02-11] MEDS ORDERED: PROCHLORPERAZINE 10 MG/2 ML VIAL IVP PRN (20:50)
[2019-02-11] MEDS ORDERED: ONDANSETRON ODT 4 MG TABLET TL PRN (20:50)
[2019-02-11] MEDS ORDERED: ONDANSETRON 4 MG/2 ML VIAL IVP PRN (20:50)
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
[2019-02-11] MEDS ORDERED: NS W/20 MEQ KCL 1,000 ML IV SCH (21:00)
[2019-02-11 21:02] LABS: BILIRUBIN,URINE NEGATIVE (NEGATIVE); GLUCOSE, URINE (UA) NEGATIVE (NEGATIVE); KETONES,URINE (UA) NEGATIVE (NEGATIVE); LEUKOCYTE ESTERASE, URINE NEGATIVE (NEGATIVE); MUDS CUTOFF CONCENTRATIONS CUTOFF CONC BELOW:; NITRITE,URINE NEGATIVE (NEGATIVE); OCCULT BLOOD,URINE NEGATIVE (NEGATIVE); PH,URINE 6.5 PH (5.0-7.5); PROTEIN,URINE NEGATIVE (NEGATIVE); UROBILINOGEN,URINE 0.2 (NORMAL) E.U./dL (NORMAL)
[2019-02-11 21:05] LABS: CLARITY,URINE CLEAR (CLEAR)
[2019-02-11 21:13] LABS: AMPHETAMINE SCREEN,URINE NEGATIVE (NEGATIVE); BENZODIAZEPINES SCREEN, URINE NEGATIVE (NEGATIVE); COCAINE SCREEN URINE NEGATIVE (NEGATIVE); METHADONE SCREEN, URINE NEGATIVE (NEGATIVE); METHAMPHETAMINES SCREEN, URINE NEGATIVE (NEGATIVE); OPIATE SCREEN, URINE NEGATIVE (NEGATIVE); OXYCODONE SCREEN, URINE NEGATIVE (NEGATIVE); PROPOXYPHENE SCREEN, URINE NEGATIVE (NEGATIVE); TRICYCLIC ANTIDEPRESSANT,URINE NEGATIVE (NEGATIVE)
[2019-02-11] MEDS: oxyCODONE 5 MG TABLET PO PRN (21:35)
[2019-02-11] MEDS ORDERED: THIAMINE 100 MG/1 ML 2 ML MDV ONE (23:20)
[2019-02-11 23:51] LABS: HGB - HEMOGLOBIN 11.8 g/dL (12.0-16.0)
[2019-02-11] MEDS: ACETAMINOPHEN 325 MG TABLET PO PRN (23:58)
[2019-02-12] MEDS: oxyCODONE 5 MG TABLET PO PRN ×3 (01:17→09:13)
[2019-02-12] MEDS: SODIUM CHLORIDE FLUSH 0.9% 10 ML SYRINGE IVP SCH ×3 (01:23→18:56)
[2019-02-12] MEDS: ACETAMINOPHEN 325 MG TABLET PO PRN ×2 (03:58→11:14)
[2019-02-12 05:07] LABS: BASOPHILS % (AUTO) 0.4 %; EOSINOPHILS # (AUTO) 0.1 10^3/uL (0.0-0.7); EOSINOPHILS % (AUTO) 1.3 %; LYMPHOCYTES # (AUTO) 1.7 10^3/uL (1.5-3.5); LYMPHOCYTES % (AUTO) 30.3 %; MEAN CORPUSCULAR HEMOGLOBIN 33.4 pg (27.0-31.0); MEAN CORPUSCULAR HGB CONC 33.9 g/dL (32.0-36.0); MEAN CORPUSCULAR VOLUME 98.3 fL (81.0-99.0); MEAN PLATELET VOLUME 7.3 fL (7.9-10.8); MONOCYTES # (AUTO) 0.6 10^3/uL (0.0-1.0); MONOCYTES % (AUTO) 10.8 %; NEUTROPHILS # (AUTO) 3.2 10^3/uL (1.5-6.6); NEUTROPHILS % (AUTO) 57.2 %; PLT - PLATELET COUNT 111 10^3/uL (130-450); RED CELL DISTRIBUTION WIDTH 14.6 % (12.0-15.0); WHITE BLOOD COUNT 5.6 x10^3/uL (4.8-10.8)
[2019-02-12 05:18] LABS: ALBUMIN 2.9 g/dL (3.2-5.5); BILIRUBIN,TOTAL 1.3 mg/dL (0.2-1.0); CREATININE 0.3 mg/dL (0.4-1.0); TOTAL PROTEIN 5.8 g/dL (6.7-8.2)
[2019-02-12] MEDS: PANTOPRAZOLE 40 MG VIAL IVP SCH (06:42)
[2019-02-12] MEDS: SODIUM CHLORIDE FLUSH 0.9% 10 ML SYRINGE IVP PRN ×4 (06:42→21:49)
[2019-02-12] MEDS ORDERED: SODIUM BICARBONATE 100 MEQ in DEXTROSE 5% 1,000 ML IV SCH (07:00)
[2019-02-12] MEDS: MULTIVITAMIN 10 ML, THIAMINE INJ 100 MG, FOLIC ACID INJ 1 MG in SODIUM CHLORIDE 0.9% 1,... IV SCH ×2 (07:39→09:58)
[2019-02-12] MEDS ORDERED: MULTIVITAMIN 10 ML, THIAMINE INJ 100 MG, FOLIC ACID INJ 1 MG in SODIUM CHLORIDE 0.9% 1,... IV SCH (09:00)
[2019-02-12] MEDS: LORazepam 1 MG TABLET PO PRN ×5 (09:11→20:43)
[2019-02-12] MEDS: POLYETHYLENE GLYCOL 3350 17 GM PACKET PO SCH (09:12)
[2019-02-12 10:50] LABS: HGB - HEMOGLOBIN 9.5 g/dL (12.0-16.0)
[2019-02-12 10:56] LABS: INR 1.6 (0.8-1.2); PT - PROTHROMBIN TIME 17.5 secs (9.9-12.6)
--- NOTE | 2019-02-12 11:29 | CONSULTATION NOTE ---
Referring Provider Name of Referring Provider:: TARAS Montelongo Consult Date: 02/12/19 Chief Complaint - Chief Complaint Chief Complaint: vomiting blood History of Present Illness - Admitted From Admitted From:: ER - History Obtained From Records Reviewed: yes History obtained from: pt, records Exam Limitations: unreliable historian - History of Present Illness HPI Comment/Other: 58 yo female admitted last night with acute alcohol intoxication and abdominal pain. She has known alcoholic liver disease as well as hx of pancreatic divisum and is s/p pancreatic sphincterotomy with stent placement in the remote past. Has had multiple admissions this year for alcoholic hepatitis, acute liver failure, symptomatic ascites. At a recent admission at [facility] she apparently underwent an EGD showing small nonbleeding varices that were reportedly not treated. She reports an episode of hemetemisis last night prior to admission where a cup of bright red blood was vomited. She reports several bloody stools over night as well. She reports continued ongoing chronic upper abdominal pain. She denies any prior episodes of GI bleeding. She reports no prior lower gi evaluations and a neg FH GI tumors. She reports 25# wt loss over the last several months and attributes it to diuretic use. She denies use of NSAIDs. She reports minimal alcohol use, having one glass of wine prior to admission, but alcohol level on admission was over 500. She has been hemodynamically stable since admission although Hgb has dropped from 13 to 9.5 overnight. There has been no hematemsis since admission. CT abd/pelvis yesterday showed esophageal varices, portal hypertension, ascites, possible right sided colitis, possible portal hypertension induced. 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 : reports: Nocturia HEENT: reports: Chronic sinusitis Psych: reports: Depression, Anxiety, ADD/ADHD, Post traumatic stress disorder Musculoskeletal: reports: Osteoarthritis, Chronic back pain Derm: reports: None MRSA Hx?: No - Past Surgical History General: reports: Other Ortho: reports: Other /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 Social History Notes: Patient lives in [place], [place] with her boyfriend. She has 2 children one son and one daughter. 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 She continues to smoke 3 cigarettes a day and states that she does drink alcohol but only once a week and she drinks 1 large glass of wine. She denies any illicit drug use. - Substance History Use: Uses substance without health or social issues: Tobacco Abuse: Recurrent use of substance despite neg consequences: Alcohol Abuse Issues: Intoxication, Mood Disorder, Other (Alcoholic liver disease) Dependence: Experiences withdrawal or developed tolerances: Alcohol Dependence Issues: Intoxication Tobacco Details: Cigarettes - POLST Patient has POLST: No POLST Status: Full Code Meds/Allgy - Home Medications Home Medications: Ambulatory Orders Medication Instructions Recorded Confirmed Lipase/Protease/Amylase [Bulmaro Rosario 1 each PO TIDWM #90 capsule. 07/13/18 02/12/19 24,000 Units Capsule] Multivitamin [Multiple Vitamins] 1 each PO DAILY #10 tablet 09/22/18 02/12/19 Spironolactone [Aldactone] 25 mg PO BID 12/06/18 02/12/19 Naloxone HCl [Narcan] 1 spray ALLI PRN PRN 02/12/19 02/12/19 - Allergies Allergies/Adverse Reactions: Allergies Allergy/AdvReac Type Severity Reaction Status Date / Time ketorolac tromethamine * Allergy Severe Hives Verified 02/11/19 17:24 [From Toradol] Review of Systems - Constitutional Constitutional: reports: Weakness, Weight loss - Cardiovascular Cariovascular: denies: Chest pain - Respiratory Respiratory: denies: Cough - Gastrointestinal Gastrointestinal: reports: Abdominal pain, Abdominal distention, Change in bowel habits, Bloody stools, Lorenzo blood emesis - Neurological Neurological: reports: General weakness - Hematologic/Lymphatic Hematologic/Lymphatic: reports: Bruising, Bleeding tendencies Exam - Vital Signs Reviewed Vital Signs: Yes Vital Signs: Vital Signs x48h Temp Pulse Pulse Resp BP Pulse Ox 02/12/19 08:00 36.7 C 100 18 144/79 H 95 06/03/19 05:29 36.7 C 97 18 99 - Physical Exam General Appearance: positive: Mild distress, Anxious Eyes Bilateral: positive: No scleral icterus ENT: positive: Dry mucous membranes Neck: positive: No JVD Respiratory: positive: Chest non-tender, No respiratory distress, Breath sounds nml. negative: Wheezes, Rales, Rhonchi Cardiovascular: positive: Regular rate & rhythm, No murmur, No gallop Abdomen: positive: Non-tender, No organomegaly, Nml bowel sounds. negative: No distention (mod distention with fluid wave), Tenderness, Guarding, Rebound, Hepatomegaly, Splenomegaly Skin: positive: Color nml, No rash, Warm, Dry. negative: Cyanosis Extremities: positive: No pedal edema. negative: Calf tenderness (mild muscle wasting is noted.) Neurologic/Psychiatric: positive: Oriented x3, Other (tremulous) Conclusion/Plan - Diagnosis Diagnosis: UGI Bleed/hematemesis in pt with known alcoholic liver disease and varices; at risk for variceal hemorrhage, less likely PUD, gastritis, etc; currently hemodynamically stable. - Plan Plan: EGD with possible banding. PAR conference. Will schedule for later today. Thanks, - Lab Results Lab results reviewed: Yes Fish Bones: 02/12/19 10:44 02/12/19 04:58 - Diagnostic Imaging Results Diagnostic Imaging Results Comments: See HPI
[2019-02-12] MEDS: MORPHINE 2 MG/ML CARPUJECT IVP PRN ×4 (11:34→18:58)
--- NOTE | 2019-02-12 11:40 | ANESTHESIA ---
Pre-Anesthesia VS, & Labs - Diagnosis GI Bleed - Procedure EGD Vital Signs: Temp Pulse Resp BP Pulse Ox 36.7 C 100 18 144/79 H 95 02/12/19 08:00 02/12/19 08:00 02/12/19 08:00 02/12/19 08:00 02/12/19 08:00 Height 5 ft 2 in Weight (kg) 54.5 kg Body Mass Index 21.9 - NPO >8 hours Last Fluid Intake: Water 30 mins ago - Is Patient ?: No - Lab Results Current Lab Results: Laboratory Tests 02/12/19 10:44: PT 17.5 H, INR 1.6 H 02/12/19 10:44: Ethyl Alcohol 5.3 02/12/19 10:44: Lipase 166 H 02/12/19 10:44: Lactic Acid 2.3 H 02/12/19 10:44: Hgb 9.5 L, Hct 27.7 L 02/12/19 04:58: Magnesium 1.7 02/12/19 04:58: Lactic Acid 5.4 H* 02/12/19 04:58: Sodium 134 L, Potassium 3.5, Chloride 107, Carbon Dioxide 15 L, Anion Gap 12.0, BUN 5 L, Creatinine 0.3 L, Estimated GFR (MDRD) 229, Glucose 112 H, Calcium 7.0 L, Total Bilirubin 1.3 H, AST 107 H, ALT 37, Alkaline Phosphatase 78, Total Protein 5.8 L, Albumin 2.9 L, Globulin 2.9, Albumin/Globulin Ratio 1.0, Ethyl Alcohol 134.9 02/12/19 04:58: WBC 5.6, RBC 3.00 L, Hgb 10.0 L, Hct 29.5 L, MCV 98.3, MCH 33.4 H, MCHC 33.9, RDW 14.6, Plt Count 111 L, MPV 7.3 L, Neut # (Auto) 3.2, Lymph # (Auto) 1.7, Wright # (Auto) 0.6, Eos # (Auto) 0.1, Baso # (Auto) 0.0, Absolute Nucleated RBC 0.00, Nucleated RBC % 0.1 02/11/19 23:27: Blood Type A POSITIVE, Antibody Screen NEGATIVE 02/11/19 23:27: Hgb 11.8 L, Hct 34.6 L 02/11/19 20:55: Urine Opiates Screen NEGATIVE, Ur Oxycodone Screen NEGATIVE, Urine Methadone Screen NEGATIVE, Ur Propoxyphene Screen NEGATIVE, Ur Barbiturat es Screen NEGATIVE, Ur Tricyclics Screen NEGATIVE, Ur Phencyclidine Scrn NEGATIVE, Ur Amphetamine Screen NEGATIVE, U Methamphetamines Scrn NEGATIVE, U Benzodiazepines Scrn NEGATIVE, Urine Cocaine Screen NEGATIVE, U Cannabinoids Screen NEGATIVE 02/11/19 20:45: Lactic Acid 3.4 H* 02/11/19 18:30: Lactic Acid 3.5 H* 02/11/19 17:30: Ethyl Alcohol 527.1 H* 02/11/19 17:30: Sodium 128 L, Potassium 3.4 L, Chloride 94 L, Carbon Dioxide 19 L, Anion Gap 15.0 H, BUN 7, Creatinine 0.3 L, Estimated GFR (MDRD) 229, Glucose 128 H, Calcium 8.3 L, Total Bilirubin 1.2 H, AST 115 H, ALT 44, Alkaline Phosphatase 103, Total Protein 7.6, Albumin 3.8, Globulin 3.8, Albumin/Globulin Ratio 1.0, Lipase 142 H 02/11/19 17:30: WBC 8.6, RBC 3.99 L, Hgb 13.2, Hct 38.1, MCV 95.3, MCH 33.1 H, MCHC 34.7, RDW 14.5, Plt Count 126 L, MPV 7.3 L, Neut # (Auto) 5.2, Lymph # (Auto) 2.7, Wright # (Auto) 0.6, Eos # (Auto) 0.1, Baso # (Auto) 0.1, Absolute Nuc leated RBC 0.01, Nucleated RBC % 0.1 Fish Bones: 02/12/19 10:44 02/12/19 04:58 Home Medications and Allergies Home Medications: Ambulatory Orders Naloxone HCl [Narcan] 1 spray ALLI PRN PRN 02/12/19 Active Medications Acetaminophen (Tylenol) 650 mg PO Q4HR PRN PRN Reason: Pain 1 to 4 Last Admin: 02/12/19 11:14 Dose: 650 mg Multivitamins 10 ml/ Thiamine HCl 100 mg/ Folic Acid 1 mg/Sodium Chloride 1,011.2 mls @ 150 mls/hr IV DAILY MEDARDO Last Admin: 02/12/19 09:58 Dose: 75 mls/hr Sodium Bicarbonate 100 meq/ (Dextrose) 1,100 mls @ 100 mls/hr IV .Q11H COUNT INCLUDES THE [facility] Last Infusion: 02/12/19 08:19 Dose: 75 mls/hr Octreotide Acetate 500 mcg/ (Sodium Chloride) 100 mls @ 10 mls/hr IV .Q10H MEDARDO Lorazepam (Ativan) 1 mg PO Q1H PRN; Protocol PRN Reason: CIWA > 8 Last Admin: 02/12/19 11:14 Dose: 1 mg Morphine Sulfate (Morphine (Carpuject)) 2 mg IVP Q2HR PRN PRN Reason: PAIN Last Admin: 02/12/19 11:34 Dose: 2 mg Ondansetron HCl (Zofran Inj) 4 mg IVP Q6HR PRN PRN Reason: Nausea / Vomiting Ondansetron HCl (Zofran Odt) 4 mg TL Q6HR PRN PRN Reason: Nausea / Vomiting Pantoprazole Sodium (Protonix) 40 mg IVP QDAC COUNT INCLUDES THE [facility] Last Admin: 02/12/19 06:42 Dose: 40 mg Polyethylene Glycol (Miralax) 17 gm PO DAILY COUNT INCLUDES THE [facility] Last Admin: 02/12/19 09:12 Dose: Not Given Prochlorperazine Edisylate (Compazine Inj) 10 mg IVP Q6HR PRN PRN Reason: Nausea / Vomiting Sodium Chloride (Normal Saline Flush 0.9%) 10 ml IVP PRN PRN PRN Reason: NEEDED PER PROVIDER ORDERS Last Admin: 02/12/19 06:46 Dose: 10 ml Sodium Chloride (Normal Saline Flush 0.9%) 10 ml IVP 0100,0900,1700 COUNT INCLUDES THE [facility] Last Admin: 02/12/19 09:13 Dose: 10 ml Spironolactone [Aldactone] 25 mg PO BID 12/06/18 Naloxone HCl [Narcan] 1 spray ALLI PRN PRN 02/12/19 Allergies/Adverse Reactions: Allergies Allergy/AdvReac Type Severity Reaction Status Date / Time ketorolac tromethamine * Allergy Severe Hives Verified 02/11/19 17:24 [From Toradol] Anes History & Medical History - Medical History Cardiovascular: reports: Coronary artery disease, [place] Pulmonary: reports: Shortness of breath Gastrointestinal: reports: GERD, Pancreatitis, Hepatitis, Cirrhosis, Cholelithiasis (sludge in gallbladder), Other Urinary: reports: Nocturia Neuro: reports: Headaches, Migraines, Tremors Musculoskeletal: reports: Osteoarthritis, Chronic back pain Endocrine/Autoimmune: reports: None Blood Disorders: reports: None Skin: reports: None Smoking Status: Current every day smoker Psychosocial: reports: Alcohol - Surgical History General: Other Eyes Ears Nose Throat (EENT): Other Gynecologic: Tubal ligation, Breast implants Orthopedic: Other Exam General: Alert, Oriented x3, Cooperative, No acute distress Dental: WNL Mouth Openin Fingerbreadth Neck Mobility: Normal Mallampati classification: III Thyromental Distance: greater than 6 cm Plan Anesthesia Type: General Consent for Procedure(s) Verified and Reviewed: Yes Code Status: Attempt Resuscitation ASA classification: 3-Severe systemic disease Is this case an emergency?: Yes
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
[2019-02-12] MEDS ORDERED: LACTATED RINGERS 1,000 ML IV ONE (11:50)
[2019-02-12] MEDS ORDERED: SUGAMMADEX 200 MG/2 ML VIAL IVP ONE (12:17)
[2019-02-12] MEDS ORDERED: fentaNYL 100 MCG/2 ML VIAL ONE (13:03)
[2019-02-12] MEDS: OCTREOTIDE 500 MCG in SODIUM CHLORIDE 0.9% 100ML 99 ML IV SCH (13:27)
[2019-02-12] MEDS ORDERED: SODIUM CHLORIDE 0.9% 1,000 ML IV SCH ×3 (15:00)
[2019-02-12 16:37] LABS: HGB - HEMOGLOBIN 9.5 g/dL (12.0-16.0)
[2019-02-12] MEDS: MORPHINE 2 MG/ML SYRINGE IVP PRN (21:48)
[2019-02-12 22:48] LABS: HGB - HEMOGLOBIN 9.5 g/dL (12.0-16.0)
[2019-02-13] MEDS: MORPHINE 2 MG/ML SYRINGE IVP PRN ×5 (00:53→13:53)
[2019-02-13] MEDS: SODIUM CHLORIDE FLUSH 0.9% 10 ML SYRINGE IVP SCH ×4 (00:53→23:53)
[2019-02-13] MEDS: OCTREOTIDE 500 MCG in SODIUM CHLORIDE 0.9% 100ML 99 ML IV SCH ×2 (00:57→08:27)
[2019-02-13] MEDS: SODIUM CHLORIDE FLUSH 0.9% 10 ML SYRINGE IVP PRN ×6 (04:40→23:53)
[2019-02-13 05:58] LABS: BASOPHILS % (AUTO) 0.7 %; EOSINOPHILS # (AUTO) 0.1 10^3/uL (0.0-0.7); EOSINOPHILS % (AUTO) 3.6 %; HGB - HEMOGLOBIN 9.8 g/dL (12.0-16.0); LYMPHOCYTES # (AUTO) 1.2 10^3/uL (1.5-3.5); LYMPHOCYTES % (AUTO) 39.7 %; MEAN CORPUSCULAR HGB CONC 33.7 g/dL (32.0-36.0); MEAN CORPUSCULAR VOLUME 98.1 fL (81.0-99.0); MEAN PLATELET VOLUME 7.5 fL (7.9-10.8); MONOCYTES # (AUTO) 0.4 10^3/uL (0.0-1.0); MONOCYTES % (AUTO) 11.7 %; NEUTROPHILS # (AUTO) 1.4 10^3/uL (1.5-6.6); NEUTROPHILS % (AUTO) 44.3 %; PLT - PLATELET COUNT 78 10^3/uL (130-450); RED BLOOD COUNT 2.98 10^6/uL (4.20-5.40); RED CELL DISTRIBUTION WIDTH 14.9 % (12.0-15.0); WHITE BLOOD COUNT 3.1 x10^3/uL (4.8-10.8)
[2019-02-13 06:00] LABS: INR 1.6 (0.8-1.2); PT - PROTHROMBIN TIME 17.5 secs (9.9-12.6)
[2019-02-13] MEDS: PANTOPRAZOLE 40 MG VIAL IVP SCH (06:06)
[2019-02-13 06:15] LABS: ALBUMIN 2.7 g/dL (3.2-5.5); ALKALINE PHOSPHATASE 66 IU/L (42-121); ALT ALANINE AMINOTRANSFERASE 31 IU/L (10-60); AST ASPARTATE AMINOTRANSFERASE 84 IU/L (10-42); BILIRUBIN,TOTAL 1.8 mg/dL (0.2-1.0); BUN - BLOOD UREA NITROGEN < 5 mg/dL (6-20); CALCIUM 7.1 mg/dL (8.5-10.3); CARBON DIOXIDE - CO2 23 mmol/L (21-32); CHLORIDE 100 mmol/L (101-111); CREATININE 0.4 mg/dL (0.4-1.0); GFR - MDRD 165 (>89); GLUCOSE 134 mg/dL (70-100); LIPASE 107 U/L (22-51); MAGNESIUM 1.3 mg/dL (1.7-2.8); PHOSPHORUS 2.3 mg/dL (2.5-4.6); SODIUM 132 mmol/L (135-145); TOTAL PROTEIN 5.3 g/dL (6.7-8.2)
[2019-02-13 06:16] LABS: CRP - C-REACTIVE PROTEIN < 1.0 mg/dL (0-1.0)
[2019-02-13] MEDS ORDERED: POTASSIUM CHLORIDE 20 MEQ/15 ML UDC PO SCH (08:00)
[2019-02-13] MEDS: LORazepam 1 MG TABLET PO PRN ×5 (08:28→20:22)
[2019-02-13] MEDS: POLYETHYLENE GLYCOL 3350 17 GM PACKET PO SCH (08:28)
[2019-02-13] MEDS: ACETAMINOPHEN 325 MG TABLET PO PRN ×2 (08:56→13:53)
[2019-02-13] MEDS ORDERED: MULTIVITAMIN 10 ML, THIAMINE INJ 100 MG, FOLIC ACID INJ 1 MG in SODIUM CHLORIDE 0.9% 1,... IV SCH (09:00)
--- NOTE | 2019-02-13 10:02 | PROVIDER PROGRESS NOTE ---
Assessment/Plan - Problem List (1) Esophageal varices with hemorrhage Qualifiers: Esophageal varices type: secondary Qualified Code(s): I85.11 - Secondary esophageal varices with bleeding Assessment/Plan: Bleeding clinically resolved following EGD with variceal band ligation; at risk for rebleeding; Rec: advance to soft diet as clarissa; outpt f/u with me; Pt will need repeat banding q 3 months until varices have resolved; pt needs to stop drinking to allow liver disease to possibly improve and portal hypertension to possibly resolve. Discussed with patient. Beta yvonne therapy has also been shown to reduce risk of recurrent bleeding from varices. - Current Meds Current Meds: Current Medications Generic Name Dose Route Start Last Admin Trade Name Freq PRN Reason Stop Dose Admin Acetaminophen 650 mg 02/11/19 20:50 02/13/19 08:56 Tylenol PO 650 mg Q4HR PRN Administration Pain 1 to 4 Octreotide Acetate 500 mcg/ 100 mls @ 10 mls/hr 02/12/19 12:00 02/13/19 08:27 Sodium Chloride IV 50 mcg/hr .Q10H MEDARDO 10 mls/hr Administration 50 MCG/HR Multivitamins 10 ml/ Thiamine 1,011.2 mls @ 125 mls/hr 02/13/19 09:00 02/13/19 08:58 HCl 100 mg/ Folic Acid 1 mg/ IV 125 mls/hr Sodium Chloride DAILY MEDARDO Administration Lorazepam 1 mg 02/12/19 08:32 02/13/19 08:28 Ativan PO 1 mg Q1H PRN Administration CIWA > 8 Protocol Morphine Sulfate 2 mg 02/12/19 20:30 02/13/19 08:28 Morphine IVP 2 mg Q2HR PRN Administration PAIN Polyethylene Glycol 17 gm 02/12/19 09:00 02/13/19 08:28 Miralax PO Not Given DAILY MEDARDO Potassium Chloride 40 meq 02/13/19 08:00 02/13/19 08:26 PO 40 meq DAILYWM MEDARDO Administration Sodium Chloride 10 ml 02/11/19 20:50 02/13/19 08:58 Normal Saline Flush 0.9% IVP 10 ml PRN PRN Administration NEEDED PER PROVIDER ORDERS Sodium Chloride 10 ml 02/12/19 01:00 02/13/19 08:29 Normal Saline Flush 0.9% IVP 10 ml 0100,0900,1700 MEDARDO Administration - Lab Result Fish Bone Diagrams: 02/13/19 05:17 02/13/19 05:17 Subjective - Subjective Patient Reports: Abdominal Pain (no change in chronic RUQ pain), Other (c/o mild ondynophagia, no N/V; no bm since procedure yesterday) Objective Vital Signs: Vital Signs - 24 hr 02/12/19 02/12/19 02/12/19 12:39 12:45 12:50 Temperature 36.9 C 37 C 37 C Heart Rate 105 H 104 H 106 H Heart Rate [ Brachial] Heart Rate [ Monitoring electrodes] Heart Rate [ Radial] Respiratory 20 20 20 Rate Blood Pressure 131/78 H 126/72 125/69 Blood Pressure [Right Brachial artery] O2 Saturation 100 100 95 02/12/19 02/12/19 02/12/19 12:55 13:00 13:05 Temperature 36.8 C 36.8 C 37 C Heart Rate 105 H 103 H 104 H Heart Rate [ Brachial] Heart Rate [ Monitoring electrodes] Heart Rate [ Radial] Respiratory 20 18 20 Rate Blood Pressure 123/70 123/69 123/68 Blood Pressure [Right Brachial artery] O2 Saturation 95 95 94 02/12/19 02/12/19 02/12/19 13:21 14:02 15:55 Temperature 37 C 37.2 C 37.0 C Heart Rate Heart Rate [ 102 H Brachial] Heart Rate [ Monitoring electrodes] Heart Rate [ 103 H 99 Radial] Respiratory 14 18 16 Rate Blood Pressure Blood Pressure 112/69 122/70 111/56 L [Right Brachial artery] O2 Saturation 94 94 94 02/12/19 02/12/19 02/12/19 17:10 19:03 20:11 Temperature 37.1 C Heart Rate Heart Rate [ 92 Brachial] Heart Rate [ 93 94 Monitoring electrodes] Heart Rate [ Radial] Respiratory 16 Rate Blood Pressure Blood Pressure 104/65 [Right Brachial artery] O2 Saturation 96 98 02/13/19 02/13/19 02/13/19 00:44 05:00 08:10 Temperature 37.0 C 36.8 C 37.1 C Heart Rate Heart Rate [ 94 Brachial] Heart Rate [ 99 99 Monitoring electrodes] Heart Rate [ Radial] Respiratory 18 18 18 Rate Blood Pressure Blood Pressure 112/67 109/73 108/58 L [Right Brachial artery] O2 Saturation 98 95 98 Oxygen O2 Source Nasal cannula I&O (Last 24 Hrs): Intake and Output Totals x24h 02/11/19 02/12/19 02/13/19 23:59 23:59 23:59 Intake Total 1823.7 3852.550 990 Output Total 1100 Balance 1823.7 2752.550 990 General: Alert, Oriented x3, Cooperative, No acute distress, Other (tremulous and anxious) Abdomen: No tenderness, Other (mod distention, firm) Extremities: No edema, No tenderness/swelling - Results Results: Laboratory Results WBC 3.1 x10^3/uL (4.8-10.8) L 02/13/19 05:17 RBC 2.98 10^6/uL (4.20-5.40) L 02/13/19 05:17 Hgb 9.8 g/dL (12.0-16.0) L 02/13/19 05:17 Hct 29.2 % (37.0-47.0) L 02/13/19 05:17 MCV 98.1 fL (81.0-99.0) 02/13/19 05:17 MCH 33.0 pg (27.0-31.0) H 02/13/19 05:17 MCHC 33.7 g/dL (32.0-36.0) 02/13/19 05:17 RDW 14.9 % (12.0-15.0) 02/13/19 05:17 Plt Count 78 10^3/uL (130-450) L 02/13/19 05:17 MPV 7.5 fL (7.9-10.8) L 02/13/19 05:17 Neut # (Auto) 1.4 10^3/uL (1.5-6.6) L 02/13/19 05:17 Lymph # (Auto) 1.2 10^3/uL (1.5-3.5) L 02/13/19 05:17 [place] # (Auto) 0.4 10^3/uL (0.0-1.0) 02/13/19 05:17 Eos # (Auto) 0.1 10^3/uL (0.0-0.7) 02/13/19 05:17 Baso # (Auto) 0.0 10^3/uL (0.0-0.1) 02/13/19 05:17 Absolute Nucleated RBC 0.00 x10^3/uL 02/13/19 05:17 Nucleated RBC % 0.1 /100WBC 02/13/19 05:17 ESR 10 mm/Hr (0-30) 02/13/19 05:17 PT 17.5 secs (9.9-12.6) H 02/13/19 05:17 INR 1.6 (0.8-1.2) H 02/13/19 05:17 Sodium 132 mmol/L (135-145) L 02/13/19 05:17 Potassium 3.2 mmol/L (3.5-5.0) L 02/13/19 05:17 Chloride 100 mmol/L (101-111) L 02/13/19 05:17 Carbon Dioxide 23 mmol/L (21-32) 02/13/19 05:17 Anion Gap 9.0 (6-13) 02/13/19 05:17 BUN < 5 mg/dL (6-20) L 02/13/19 05:17 Creatinine 0.4 mg/dL (0.4-1.0) 02/13/19 05:17 Estimated GFR (MDRD) 165 (>89) 02/13/19 05:17 Glucose 134 mg/dL (70-100) H 02/13/19 05:17 Lactic Acid 1.2 mmol/L (0.5-2.2) 02/12/19 14:03 Calcium 7.1 mg/dL (8.5-10.3) L 02/13/19 05:17 Phosphorus 2.3 mg/dL (2.5-4.6) L 02/13/19 05:17 Magnesium 1.3 mg/dL (1.7-2.8) L 02/13/19 05:17 Total Bilirubin 1.8 mg/dL (0.2-1.0) H 02/13/19 05:17 AST 84 IU/L (10-42) H 02/13/19 05:17 ALT 31 IU/L (10-60) 02/13/19 05:17 Alkaline Phosphatase 66 IU/L (42-121) 02/13/19 05:17 C-Reactive Protein < 1.0 mg/dL (0-1.0) 02/13/19 05:17 Total Protein 5.3 g/dL (6.7-8.2) L 02/13/19 05:17 Albumin 2.7 g/dL (3.2-5.5) L 02/13/19 05:17 Globulin 2.6 g/dL (2.1-4.2) 02/13/19 05:17 Albumin/Globulin Ratio 1.0 (1.0-2.2) 02/13/19 05:17 Lipase 107 U/L (22-51) H 02/13/19 05:17 Urine Color YELLOW 02/11/19 20:55 Urine Clarity CLEAR (CLEAR) 02/11/19 20:55 Urine pH 6.5 PH (5.0-7.5) 02/11/19 20:55 Ur Specific [place] <=1.005 (1.002-1.030) 02/11/19 20:55 Urine Protein NEGATIVE mg/dL (NEGATIVE) 02/11/19 20:55 Urine Glucose (UA) NEGATIVE mg/dL (NEGATIVE) 02/11/19 20:55 Urine Ketones NEGATIVE mg/dL (NEGATIVE) 02/11/19 20:55 Urine Occult Blood NEGATIVE (NEGATIVE) 02/11/19 20:55 Urine Nitrite NEGATIVE (NEGATIVE) 02/11/19 20:55 Urine Bilirubin NEGATIVE (NEGATIVE) 02/11/19 20:55 Urine Urobilinogen 0.2 (NORMAL) E.U./dL (NORMAL) 02/11/19 20:55 Ur Leukocyte Esterase NEGATIVE (NEGATIVE) 02/11/19 20:55 Ur Microscopic Review NOT INDICATED 02/11/19 20:55 Urine Culture Comments NOT INDICATED 02/11/19 20:55 Stl Occult Blood (IFOB) POSITIVE (NEGATIVE) A 02/12/19 06:06 Urine Opiates Screen NEGATIVE (NEGATIVE) 02/11/19 20:55 Ur Oxycodone Screen NEGATIVE (NEGATIVE) 02/11/19 20:55 Urine Methadone Screen NEGATIVE (NEGATIVE) 02/11/19 20:55 Ur Propoxyphene Screen NEGATIVE (NEGATIVE) 02/11/19 20:55 Ur Barbiturates Screen NEGATIVE (NEGATIVE) 02/11/19 20:55 Ur Tricyclics Screen NEGATIVE (NEGATIVE) 02/11/19 20:55 Ur Phencyclidine Scrn NEGATIVE (NEGATIVE) 02/11/19 20:55 Ur Amphetamine Screen NEGATIVE (NEGATIVE) 02/11/19 20:55 U Methamphetamines Scrn NEGATIVE (NEGATIVE) 02/11/19 20:55 U Benzodiazepines Scrn NEGATIVE (NEGATIVE) 02/11/19 20:55 Urine Cocaine Screen NEGATIVE (NEGATIVE) 02/11/19 20:55 U Cannabinoids Screen NEGATIVE (NEGATIVE) 02/11/19 20:55 Ethyl Alcohol 5.3 mg/dL 02/12/19 10:44 Blood Type A POSITIVE 02/11/19 23:27 Blood Type Recheck A POSITIVE 02/12/19 10:44 Antibody Screen NEGATIVE 02/11/19 23:27 - Procedures Procedures: Procedures DRAINAGE OF PERITONEAL CAVITY, PERCUTANEOUS APPROACH, DIAGN (12/06/18) Sepsis Event Note (H) - Evaluation Current Stage of Sepsis: Ruled out ABX Reporting Has patient been on IV antibiotics over the past 48 hours?: No
[2019-02-13] MEDS: SPIRONOLACTONE 25 MG TABLET PO SCH ×2 (10:33→22:16)
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
[2019-02-13] MEDS ORDERED: ROCURONIUM 50 MG/5 ML VIAL IVP ONE (12:43)
[2019-02-13] MEDS ORDERED: PROPOFOL 200 MG/20 ML VIAL IVP ONE (12:43)
[2019-02-13] MEDS: THIAMINE 100 MG TABLET PO SCH (13:31)
[2019-02-13] MEDS: MAGNESIUM OXIDE 400 MG TABLET PO SCH (17:18)
[2019-02-13] MEDS: oxyCODONE 5 MG TABLET PO PRN ×2 (17:19→23:51)
[2019-02-13] MEDS: LIPASE/PROTEASE/AMYLASE CAPSULE PO SCH (17:58)
[2019-02-13] MEDS: PROPRANOLOL 10 MG TABLET PO SCH ×2 (18:40→23:44)
[2019-02-13] MEDS ORDERED: PANTOPRAZOLE 40 MG TABLET PO SCH (21:00)
[2019-02-14] MEDS: LORazepam 1 MG TABLET PO PRN (01:44)
[2019-02-14 04:53] LABS: BASOPHILS % (AUTO) 1.1 %; EOSINOPHILS # (AUTO) 0.1 10^3/uL (0.0-0.7); EOSINOPHILS % (AUTO) 4.1 %; HGB - HEMOGLOBIN 10.2 g/dL (12.0-16.0); LYMPHOCYTES % (AUTO) 29.3 %; MEAN CORPUSCULAR HEMOGLOBIN 33.4 pg (27.0-31.0); MEAN CORPUSCULAR VOLUME 98.3 fL (81.0-99.0); MEAN PLATELET VOLUME 7.8 fL (7.9-10.8); MONOCYTES # (AUTO) 0.4 10^3/uL (0.0-1.0); MONOCYTES % (AUTO) 10.6 %; NEUTROPHILS # (AUTO) 1.8 10^3/uL (1.5-6.6); NEUTROPHILS % (AUTO) 54.9 %; PLT - PLATELET COUNT 87 10^3/uL (130-450); RED BLOOD COUNT 3.06 10^6/uL (4.20-5.40); RED CELL DISTRIBUTION WIDTH 14.7 % (12.0-15.0); WHITE BLOOD COUNT 3.4 x10^3/uL (4.8-10.8)
[2019-02-14 04:57] LABS: INR 1.6 (0.8-1.2); PT - PROTHROMBIN TIME 17.5 secs (9.9-12.6)
[2019-02-14 05:14] LABS: ALBUMIN 2.6 g/dL (3.2-5.5); ALBUMIN/GLOBULIN RATIO 0.9 (1.0-2.2); ALKALINE PHOSPHATASE 73 IU/L (42-121); ALT ALANINE AMINOTRANSFERASE 28 IU/L (10-60); AST ASPARTATE AMINOTRANSFERASE 78 IU/L (10-42); BILIRUBIN,TOTAL 1.4 mg/dL (0.2-1.0); BUN - BLOOD UREA NITROGEN < 5 mg/dL (6-20); CALCIUM 7.8 mg/dL (8.5-10.3); CARBON DIOXIDE - CO2 25 mmol/L (21-32); CHLORIDE 102 mmol/L (101-111); CREATININE 0.4 mg/dL (0.4-1.0); GAMMA GLUTAMYL TRANSPEPTIDASE 90 IU/L (8-38); GFR - MDRD 165 (>89); GLUCOSE 122 mg/dL (70-100); MAGNESIUM 1.5 mg/dL (1.7-2.8); PHOSPHORUS 2.4 mg/dL (2.5-4.6); SODIUM 133 mmol/L (135-145); TOTAL PROTEIN 5.4 g/dL (6.7-8.2)
[2019-02-14] MEDS: oxyCODONE 5 MG TABLET PO PRN ×2 (05:57→11:24)
[2019-02-14] MEDS ORDERED: PANTOPRAZOLE 40 MG TABLET PO SCH (07:00)
[2019-02-14] MEDS ORDERED: POLYETHYLENE GLYCOL 3350 17 GM PACKET PO PRN (07:01)
--- NOTE | 2019-02-14 07:05 | PROVIDER PROGRESS NOTE ---
Assessment/Plan - Problem List (1) Esophageal varices with hemorrhage Qualifiers: Esophageal varices type: secondary Qualified Code(s): I85.11 - Secondary esophageal varices with bleeding Assessment/Plan: Resolved; agree with beta yvonne therapy; rx ascites; outpt f/u in my office to arrange repeat banding to reduce risk of rebleeding. - Current Meds Current Meds: Current Medications Generic Name Dose Route Start Last Admin Trade Name Freq PRN Reason Stop Dose Admin Lipase/Protease/Amylase 1 cap 02/13/19 17:00 02/13/19 17:[address] 5,000/17,000/27,000 Chcf PO 1 cap TIDWM MEDARDO Administration Lorazepam 1 mg 02/12/19 08:32 02/14/19 01:44 Ativan PO 1 mg Q1H PRN Administration CIWA > 8 Protocol Magnesium Oxide 800 mg 02/13/19 17:00 02/13/19 17:18 Mag Ox PO 800 mg BIDWM MEDARDO Administration Oxycodone HCl 5 mg 02/13/19 15:37 02/14/19 05:57 Roxicodone PO 5 mg Q4HR PRN Administration PAIN Pantoprazole Sodium 40 mg 02/14/19 07:00 02/14/19 06:54 Protonix PO 40 mg QDAC MEDARDO Administration Propranolol HCl 10 mg 02/13/19 16:00 02/13/19 23:44 Inderal PO 10 mg BID MEDARDO Administration Sodium Chloride 10 ml 02/11/19 20:50 02/13/19 23:53 Normal Saline Flush 0.9% IVP 10 ml PRN PRN Administration NEEDED PER PROVIDER ORDERS Sodium Chloride 10 ml 02/12/19 01:00 02/13/19 23:53 Normal Saline Flush 0.9% IVP 10 ml 0100,0900,1700 MEDARDO Administration Spironolactone 25 mg 02/13/19 09:00 02/13/19 22:16 Aldactone PO 25 mg BID MEDARDO Administration Thiamine HCl 100 mg 02/13/19 12:00 02/13/19 13:31 Vitamin B-1 PO 100 mg DAILY MEDARDO Administration - Lab Result Lab results reviewed: Yes Fish Bone Diagrams: 02/14/19 04:35 02/14/19 04:35 - Additional Planning Condition/Complexity: Improved My Orders: My Active Orders 02/14/19 07:00 Pantoprazole [Protonix] 40 mg PO QDAC 02/14/19 07:01 Polyethylene Glycol 3350 [Miralax] 17 gm PO DAILY PRN Plan Discussed with:: Patient, Other (Dr. Hanks) Time Spent: 15-30 minutes Subjective - Subjective Patient Reports: Feeling Better, Abdominal Pain (c/o persistent RUQ pain, chronic, but tolerating soft diet well, no N/V; no bm since banding procedure 2 days ago.) Objective Vital Signs: Vital Signs - 24 hr 02/13/19 02/13/19 02/13/19 08:10 12:00 15:41 Temperature 37.1 C 36.8 C 37.0 C Heart Rate [ Brachial] Heart Rate [ 99 91 90 Monitoring electrodes] Respiratory 18 20 20 Rate Blood Pressure 108/58 L 112/50 L 99/58 L [Right Brachial artery] O2 Saturation 98 95 96 02/13/19 02/13/19 02/13/19 18:00 22:00 23:50 Temperature 36.9 C 36.7 C Heart Rate [ Brachial] Heart Rate [ 87 94 93 Monitoring electrodes] Respiratory 20 16 Rate Blood Pressure 100/65 114/78 106/67 [Right Brachial artery] O2 Saturation 97 97 02/14/19 02/14/19 01:42 06:05 Temperature Heart Rate [ 79 Brachial] Heart Rate [ 79 Monitoring electrodes] Respiratory Rate Blood Pressure 107/60 106/68 [Right Brachial artery] O2 Saturation 95 Oxygen O2 Source Room air I&O (Last 24 Hrs): Intake and Output Totals x24h 02/12/19 02/13/19 02/14/19 23:59 23:59 23:59 Intake Total 3852.550 2682.2 340 Output Total 1100 Balance 2752.550 2682.2 340 General: Alert, Oriented x3, Cooperative, No acute distress Neuro: Alert Abdomen: No tenderness (when distracted), No masses, Other (moderately distended c/w ascites) Extremities: No edema, No tenderness/swelling - Results Results: Laboratory Results WBC 3.4 x10^3/uL (4.8-10.8) L 02/14/19 04:35 RBC 3.06 10^6/uL (4.20-5.40) L 02/14/19 04:35 Hgb 10.2 g/dL (12.0-16.0) L 02/14/19 04:35 Hct 30.0 % (37.0-47.0) L 02/14/19 04:35 MCV 98.3 fL (81.0-99.0) 02/14/19 04:35 MCH 33.4 pg (27.0-31.0) H 02/14/19 04:35 MCHC 34.0 g/dL (32.0-36.0) 02/14/19 04:35 RDW 14.7 % (12.0-15.0) 02/14/19 04:35 Plt Count 87 10^3/uL (130-450) L 02/14/19 04:35 MPV 7.8 fL (7.9-10.8) L 02/14/19 04:35 Neut # (Auto) 1.8 10^3/uL (1.5-6.6) 02/14/19 04:35 Lymph # (Auto) 1.0 10^3/uL (1.5-3.5) L 02/14/19 04:35 [place] # (Auto) 0.4 10^3/uL (0.0-1.0) 02/14/19 04:35 Eos # (Auto) 0.1 10^3/uL (0.0-0.7) 02/14/19 04:35 Baso # (Auto) 0.0 10^3/uL (0.0-0.1) 02/14/19 04:35 Absolute Nucleated RBC 0.00 x10^3/uL 02/14/19 04:35 Nucleated RBC % 0.1 /100WBC 02/14/19 04:35 ESR 10 mm/Hr (0-30) 02/13/19 05:17 PT 17.5 secs (9.9-12.6) H 02/14/19 04:35 INR 1.6 (0.8-1.2) H 02/14/19 04:35 Sodium 133 mmol/L (135-145) L 02/14/19 04:35 Potassium 3.8 mmol/L (3.5-5.0) 02/14/19 04:35 Chloride 102 mmol/L (101-111) 02/14/19 04:35 Carbon Dioxide 25 mmol/L (21-32) 02/14/19 04:35 Anion Gap 6.0 (6-13) 02/14/19 04:35 BUN < 5 mg/dL (6-20) L 02/14/19 04:35 Creatinine 0.4 mg/dL (0.4-1.0) 02/14/19 04:35 Estimated GFR (MDRD) 165 (>89) 02/14/19 04:35 Glucose 122 mg/dL (70-100) H 02/14/19 04:35 Lactic Acid 1.2 mmol/L (0.5-2.2) 02/12/19 14:03 Calcium 7.8 mg/dL (8.5-10.3) L 02/14/19 04:35 Phosphorus 2.4 mg/dL (2.5-4.6) L 02/14/19 04:35 Magnesium 1.5 mg/dL (1.7-2.8) L 02/14/19 04:35 Total Bilirubin 1.4 mg/dL (0.2-1.0) H 02/14/19 04:35 GGT 90 IU/L (8-38) H 02/14/19 04:35 AST 78 IU/L (10-42) H 02/14/19 04:35 ALT 28 IU/L (10-60) 02/14/19 04:35 Alkaline Phosphatase 73 IU/L (42-121) 02/14/19 04:35 C-Reactive Protein < 1.0 mg/dL (0-1.0) 02/13/19 05:17 Total Protein 5.4 g/dL (6.7-8.2) L 02/14/19 04:35 Albumin 2.6 g/dL (3.2-5.5) L 02/14/19 04:35 Globulin 2.8 g/dL (2.1-4.2) 02/14/19 04:35 Albumin/Globulin Ratio 0.9 (1.0-2.2) L 02/14/19 04:35 Lipase 107 U/L (22-51) H 02/13/19 05:17 Urine Color YELLOW 02/11/19 20:55 Urine Clarity CLEAR (CLEAR) 02/11/19 20:55 Urine pH 6.5 PH (5.0-7.5) 02/11/19 20:55 Ur Specific [place] <=1.005 (1.002-1.030) 02/11/19 20:55 Urine Protein NEGATIVE mg/dL (NEGATIVE) 02/11/19 20:55 Urine Glucose (UA) NEGATIVE mg/dL (NEGATIVE) 02/11/19 20:55 Urine Ketones NEGATIVE mg/dL (NEGATIVE) 02/11/19 20:55 Urine Occult Blood NEGATIVE (NEGATIVE) 02/11/19 20:55 Urine Nitrite NEGATIVE (NEGATIVE) 02/11/19 20:55 Urine Bilirubin NEGATIVE (NEGATIVE) 02/11/19 20:55 Urine Urobilinogen 0.2 (NORMAL) E.U./dL (NORMAL) 02/11/19 20:55 Ur Leukocyte Esterase NEGATIVE (NEGATIVE) 02/11/19 20:55 Ur Microscopic Review NOT INDICATED 02/11/19 20:55 Urine Culture Comments NOT INDICATED 02/11/19 20:55 Stl Occult Blood (IFOB) POSITIVE (NEGATIVE) A 02/12/19 06:06 Urine Opiates Screen NEGATIVE (NEGATIVE) 02/11/19 20:55 Ur Oxycodone Screen NEGATIVE (NEGATIVE) 02/11/19 20:55 Urine Methadone Screen NEGATIVE (NEGATIVE) 02/11/19 20:55 Ur Propoxyphene Screen NEGATIVE (NEGATIVE) 02/11/19 20:55 Ur Barbiturates Screen NEGATIVE (NEGATIVE) 02/11/19 20:55 Ur Tricyclics Screen NEGATIVE (NEGATIVE) 02/11/19 20:55 Ur Phencyclidine Scrn NEGATIVE (NEGATIVE) 02/11/19 20:55 Ur Amphetamine Screen NEGATIVE (NEGATIVE) 02/11/19 20:55 U Methamphetamines Scrn NEGATIVE (NEGATIVE) 02/11/19 20:55 U Benzodiazepines Scrn NEGATIVE (NEGATIVE) 02/11/19 20:55 Urine Cocaine Screen NEGATIVE (NEGATIVE) 02/11/19 20:55 U Cannabinoids Screen NEGATIVE (NEGATIVE) 02/11/19 20:55 Ethyl Alcohol 5.3 mg/dL 02/12/19 10:44 Blood Type A POSITIVE 02/11/19 23:27 Blood Type Recheck A POSITIVE 02/12/19 10:44 Antibody Screen NEGATIVE 02/11/19 23:27 - Procedures Procedures: Procedures DRAINAGE OF PERITONEAL CAVITY, PERCUTANEOUS APPROACH, DIAGN (12/06/18) Sepsis Event Note (H) - Evaluation Current Stage of Sepsis: Ruled out ABX Reporting Has patient been on IV antibiotics over the past 48 hours?: No
--- NOTE | 2019-02-14 07:55 | Discharge Plan ---
Discharge Plan Disposition: Home, Self Care Condition: Good Prescriptions: oxyCODONE [Roxicodone] 5 mg PO Q4HR PRN #25 tablet PRN Reason: Pain Magnesium Oxide [Mag Ox] 400 mg PO BIDWM #60 tablet Propranolol [Inderal] 10 mg PO BID #60 tablet Thiamine [Vitamin B-1] 100 mg PO DAILY #30 tablet Diet: Soft Activity Restrictions: Activity as Tolerated Shower Restrictions: No Driving Restrictions: No Instruction Topics: Oxycodone extended-release capsules, Ethanol Blood, Alcoholism Additional Instructions or Follow Up instructions: You were admitted for a GI bleed. General surgery, Dr. Aurelio Rojas performed an esophageal banding to resolve the bleeding. You did not require a blood transfusion. You will need to follow up with Dr. Aurelio Rojas in one week and plan for more esophageal banding procedures in the near future. Please take magnesium twice daily because your magnesium blood level is low. You have a condition called portal hypertension (a consequence of your liver disease), which leads to worsening of your esophageal varices. Please take a medication called propranolol, which has been started here. I have given you a short course of oxycodone for your abdominal pain and headaches. To ensure your intermediate frame tender health, you should no longer use alcohol. Social work has provided you with near-by community resources. Please see your PCP within one week of this visit. No Smoking: If you smoke, Please STOP! Call for help.
[2019-02-14] MEDS ORDERED: PRENATAL VITAMIN TABLET PO SCH (08:00)
[2019-02-14] MEDS: SODIUM CHLORIDE FLUSH 0.9% 10 ML SYRINGE IVP SCH (08:32)
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
[2019-02-14] MEDS: MAGNESIUM OXIDE 400 MG TABLET PO SCH (11:24)
[2019-02-14] MEDS: SPIRONOLACTONE 25 MG TABLET PO SCH (11:24)
[2019-02-14] MEDS: LIPASE/PROTEASE/AMYLASE CAPSULE PO SCH ×2 (11:24→14:37)
[2019-02-14] MEDS: THIAMINE 100 MG TABLET PO SCH (11:25)
[2019-02-14] MEDS: PROPRANOLOL 10 MG TABLET PO SCH (11:27)
[2019-02-14] MEDS ORDERED: ZINC OXIDE 20% OINT 28.35 GM TUBE TOP PRN (12:30)
[2019-02-14 14:03] VITALS: BP 115/66
== END 2019-02-14 15:00 | disposition home or self-care (01) | DRG 441 ==
LOC: EDUNIT# → ED 17:15 → MS2 20:50
PROVIDERS: ADMIT Specialist; ATTEND Nurse Practitioner
PROC: 06L38CZ Occlusion of Esophageal Vein with Extraluminal Device, Via Natural or Artificial Opening Endoscopic (ICD-10-PCS; principal; 2019-02-12 12:00)
DX: K76.6 Portal hypertension (principal); I85.11 Secondary esophageal varices with bleeding; T74.11XA Adult physical abuse, confirmed, initial encounter; K86.0 Alcohol-induced chronic pancreatitis; E87.1 Hypo-osmolality and hyponatremia; F11.20 Opioid dependence, uncomplicated; F10.24 Alcohol dependence with alcohol-induced mood disorder; D62 Acute posthemorrhagic anemia; K70.31 Alcoholic cirrhosis of liver with ascites; S00.12XA Contusion of left eyelid and periocular area, initial encounter; S00.11XA Contusion of right eyelid and periocular area, initial encounter; S00.33XA Contusion of nose, initial encounter; S00.03XA Contusion of scalp, initial encounter; S00.83XA Contusion of other part of head, initial encounter; S30.1XXA Contusion of abdominal wall, initial encounter; S20.222A Contusion of left back wall of thorax, initial encounter; S40.022A Contusion of left upper arm, initial encounter; S40.021A Contusion of right upper arm, initial encounter; S80.12XA Contusion of left lower leg, initial encounter; S80.11XA Contusion of right lower leg, initial encounter; H11.31 Conjunctival hemorrhage, right eye; Y04.2XXA Assault by strike against or bumped into by another person, initial encounter; W10.9XXA Fall (on) (from) unspecified stairs and steps, initial encounter; Y90.8 Blood alcohol level of 240 mg/100 ml or more; Y07.03 Male partner, perpetrator of maltreatment and neglect; G89.4 Chronic pain syndrome; D51.9 Vitamin B12 deficiency anemia, unspecified; E87.6 Hypokalemia; E87.8 Other disorders of electrolyte and fluid balance, not elsewhere classified; F10.229 Alcohol dependence with intoxication, unspecified; F43.10 Post-traumatic stress disorder, unspecified; F90.9 Attention-deficit hyperactivity disorder, unspecified type; F40.240 Claustrophobia; M19.90 Unspecified osteoarthritis, unspecified site; M54.9 Dorsalgia, unspecified; I25.10 Atherosclerotic heart disease of native coronary artery without angina pectoris; G43.909 Migraine, unspecified, not intractable, without status migrainosus; K70.11 Alcoholic hepatitis with ascites; K52.9 Noninfective gastroenteritis and colitis, unspecified; K82.8 Other specified diseases of gallbladder; K21.9 Gastro-esophageal reflux disease without esophagitis; F41.9 Anxiety disorder, unspecified; F32.9 Major depressive disorder, single episode, unspecified; B19.20 Unspecified viral hepatitis C without hepatic coma; F17.210 Nicotine dependence, cigarettes, uncomplicated; I25.2 Old myocardial infarction; Z79.899 Other long term (current) drug therapy; Z98.82 Breast implant status; Z87.738 Personal history of other specified (corrected) congenital malformations of digestive system
CPT/HCPCS: 36415; 70450; 70486; 71045; 74177; 80053; 80306; 80320; 81003; 82274; 82977; 83605; 83690; 83735; 84100; 85014; 85018; 85025; 85610; 85651; 86140; 86850; 86900; 86901; 87040; 87177; 87209; 93005; 96360; 96361; 99284; A9270; J2270; J3411; J7120; J8499; Q0162; Q9967; 81001; 87086

== ENCOUNTER 2019-02-17 21:02 | Outpatient (CLI) | payer MEDICAID | END 2019-02-17 21:03 | disposition critical access hospital (66) | LOC: EMS 21:02 | PROVIDERS: ATTEND Surgery | DX: K92.0 Hematemesis (principal); K92.1 Melena; R42 Dizziness and giddiness; R53.1 Weakness | CPT/HCPCS: A0425; A0429; A0999 ==

== ENCOUNTER 2019-02-17 21:10 | Emergency (ER) | payer MEDICAID ==
[2019-02-17] MEDS ORDERED: PANTOPRAZOLE 80 MG in SODIUM CHLORIDE 0.9% 100ML 100 ML IV STA (21:27)
[2019-02-17] MEDS ORDERED: OCTREOTIDE 500 MCG in SODIUM CHLORIDE 0.9% 100ML 95 ML IV STA (21:27)
[2019-02-17] MEDS ORDERED: OCTREOTIDE 100 MCG/ML VIAL IVP STA (21:27)
[2019-02-17] MEDS ORDERED: cefTRIAXone 1 GM in SODIUM CHLORIDE 0.9% MINIBAG 100 ML IV STA (21:27)
[2019-02-17] MEDS ORDERED: PANTOPRAZOLE 40 MG VIAL IVP STA (21:27)
[2019-02-17] MEDS ORDERED: SODIUM CHLORIDE 0.9% 1,000 ML IV ONE (21:27)
--- NOTE | 2019-02-17 21:32 | ED Physician Documentation ---
PD HPI ABD PAIN - Stated complaint Stated Complaint: VOMITING BLOOD - Chief complaint Chief Complaint: Abd Pain - History obtained from History obtained from: Patient, EMS - History of Present Illness Timing - onset: Other (This is a 58-year-old woman with history of alcoholism, varices and cirrhosis who presents with continued vomiting of blood. She was discharged here 3 days ago after admission for bleeding esophageal varices. She did have endoscopy with treatment here. She says that subsequent to discharge she is continued to vomit blood and have melena. She also has abdominal swelling. No acute abdominal pain but she does have chronic abdominal pain. She admits to drinking 2 glasses of Chardonnay tonight. She says she is taking her medications except for the pain medication she was prescribed because she has been vomiting it up.) Review of Systems Ten Systems: 10 systems reviewed and negative Constitutional: denies: Fever, Chills Throat: denies: Dental pain / toothache, Sore throat Cardiac: denies: Chest pain / pressure, Palpitations PD PAST MEDICAL HISTORY - Past Medical History Cardiovascular: Coronary artery disease, [place], Murmur Respiratory: Shortness of breath Neuro: Headaches, Migraines, Tremors Endocrine/Autoimmune: None GI: GERD, Pancreatitis, Hepatitis, Cirrhosis, Cholelithiasis (sludge in gallbladder), Other FAMILY AND MARRIAGE COUNSELLOR: None : Nocturia HEENT: Chronic sinusitis Psych: Depression, Anxiety, ADD/ADHD, Post traumatic stress disorder Musculoskeletal: Osteoarthritis, Chronic back pain Derm: None - Past Surgical History Past Surgical History: Yes General: Other Ortho: Other /FAMILY AND MARRIAGE COUNSELLOR: Tubal ligation, Breast implants HEENT: Other - Present Medications Home Medications: Ambulatory Orders Medication Instructions Recorded Confirmed RX: Lipase/Protease/Amylase [Creon 1 each PO TIDWM #90 capsule. 07/13/18 02/12/19 24,000 Units Capsule] RX: Multivitamin [Multiple 1 each PO DAILY #10 tablet 09/22/18 02/12/19 Vitamins] RX: Spironolactone [Aldactone] 25 mg PO BID 12/06/18 02/12/19 RX: Naloxone HCl [Narcan] 1 spray ALLI PRN PRN 02/12/19 02/12/19 RX: Magnesium Oxide [Mag Ox] 400 mg PO BIDWM #60 tablet 02/14/19 RX: Propranolol [Inderal] 10 mg PO BID #60 tablet 02/14/19 RX: Thiamine [Vitamin B-1] 100 mg PO DAILY #30 tablet 02/14/19 RX: oxyCODONE [Roxicodone] 5 mg PO Q4HR PRN #25 tablet 02/14/19 - Allergies Allergies/Adverse Reactions: Allergies Allergy/AdvReac Type Severity Reaction Status Date / Time ketorolac tromethamine * Allergy Severe Hives Verified 02/11/19 17:24 [From Toradol] - Social History Does the pt smoke?: Yes Smoking Status: Current every day smoker Does the pt drink ETOH?: No Does the pt have substance abuse?: No - Family History Family history: reports: Non contributory - Immunizations Immunizations are current?: No Immunizations: TDAP >10years/unknown - POLST Patient has POLST: No POLST Status: Full Code PD ED PE NORMAL - Vitals Vital signs reviewed: Yes - General General: Alert and oriented X 3, No acute distress, Other (She smells of alcohol) - HEENT HEENT: PERRL, EOMI, Other (Right greater than left periorbital ecchymosis from an injury about 10 days ago) - Neck Neck: Supple, no meningeal sign, No bony TTP - Cardiac Cardiac: RRR, No murmur - Respiratory Respiratory: No respiratory distress, Clear bilaterally - Abdomen Abdomen: Other (She has ascites, not quite tense but close with mild upper abdominal and right upper quadrant tenderness) - Back Back: No CVA TTP, No spinal TTP - Derm Derm: Normal color, Warm and dry - Extremities Extremities: Normal ROM s pain, No calf tenderness / cord - Neuro Neuro: Alert and oriented X 3, Normal speech Results - Vitals Vitals: Vital Signs - 24 hr 02/18/19 02/18/19 02/18/19 09:00 11:21 12:25 Heart Rate 62 66 93 Respiratory 22 22 18 Rate Blood Pressure 113/74 111/82 H 111/72 O2 Saturation 99 100 99 02/18/19 02/18/19 14:48 16:04 Heart Rate 67 88 Respiratory 18 20 Rate Blood Pressure 93/62 107/73 O2 Saturation 100 97 Oxygen O2 Source Room air - EKG (time done) 2133 Rate: Rate (enter#) (92) Rhythm: NSR [place]: Normal Intervals: Normal [place] QRS: Normal Ischemia: Q waves (inferior) Computer interpretation: Agree with computer - Labs Labs: Laboratory Tests 02/17/19 02/17/19 02/17/19 21:45 21:45 21:45 WBC 6.2 RBC 3.36 L Hgb 11.2 L Hct 33.0 L MCV 98.1 MCH 33.2 H MCHC 33.9 RDW 16.2 H Plt Count 136 MPV 7.6 L Neut # (Auto) 3.2 Lymph # (Auto) 1.8 [place] # (Auto) 1.0 Eos # (Auto) 0.1 Baso # (Auto) 0.0 Absolute Nucleated RBC 0.00 Nucleated RBC % 0.1 PT 16.2 H INR 1.4 H Sodium 139 Potassium 3.3 L Chloride 104 Carbon Dioxide 22 Anion Gap 13.0 BUN 9 Creatinine 0.5 Estimated GFR (MDRD) 127 Glucose 126 H Lactic Acid Calcium 8.3 L Magnesium 1.9 Total Bilirubin 0.9 AST 68 H ALT 31 Alkaline Phosphatase 87 Total Protein 5.9 L Albumin 3.0 L Globulin 2.9 Albumin/Globulin Ratio 1.0 Lipase 101 H Ethyl Alcohol 189.8 Blood Type Antibody Screen 02/17/19 02/17/19 02/18/19 21:45 21:45 05:25 WBC RBC Hgb 10.6 L Hct 31.4 L MCV MCH MCHC RDW Plt Count MPV Neut # (Auto) Lymph # (Auto) [place] # (Auto) Eos # (Auto) Baso # (Auto) Absolute Nucleated RBC Nucleated RBC % PT INR Sodium Potassium Chloride Carbon Dioxide Anion Gap BUN Creatinine Estimated GFR (MDRD) Glucose Lactic Acid 2.9 H Calcium Magnesium Total Bilirubin AST ALT Alkaline Phosphatase Total Protein Albumin Globulin Albumin/Globulin Ratio Lipase Ethyl Alcohol Blood Type A POSITIVE Antibody Screen NEGATIVE PD MEDICAL DECISION MAKING - ED course ED course: She presents by ambulance for complaints of upper GI bleeding in the setting of known varices. However she is hemodynamically stable here with no vomiting and no melena. Her Hgb Is a point higher than it was 3 days ago on discharge. She is intoxicated with a blood alcohol of 189. I touched base by phone with Dr. Aurelio Rojas, the on-call surgeon who knows her well and did not see any indication for urgent intervention. He does relay a history of both drug- seeking behavior and attention seeking as well as some malingering. Given the hemodynamic stability and improved H&H significant GI bleed is unlikely. I discussed with this with the patient, she seems more worried about pain medication and anxiety then she does about the bleeding. I discussed with her that at this point there does not seem to be an indication for admission, but I recommended social work consultation for inpatient alcohol detoxification given that alcoholism is definitely killing her. She agreed and will board in the emergency department overnight pending that. Initially given the chief complaint I had ordered antibiotics, Rocephin, octreotide, Protonix and blood. I canceled all of these orders except for the Protonix bolus and added thiamine and Ativan to help her rest overnight. Care to Dr. Wiley at shift change with the plan to do a H&H in 6 hours or so out of an abundance of caution and then social work in the morning. If the patient changes her mind about detox and would like to be discharged I do not think that is unsafe. Departure - Departure Disposition: 01 Home, Self Care Clinical Impression: History of substance abuse, Alcohol abuse Ascites Qualifiers: Ascites type: due to alcoholic cirrhosis Qualified Code(s): K70.31 - Alcoholic cirrhosis of liver with ascites Alcohol intoxication Qualifiers: Complication of substance-induced condition: uncomplicated Qualified Code(s): F10.920 - Alcohol use, unspecified with intoxication, uncomplicated Condition: Fair Discharge Date/Time: 02/18/19 17:29
[2019-02-17 21:49] LABS: BASOPHILS % (AUTO) 0.4 %; EOSINOPHILS # (AUTO) 0.1 10^3/uL (0.0-0.7); EOSINOPHILS % (AUTO) 0.8 %; HGB - HEMOGLOBIN 11.2 g/dL (12.0-16.0); LYMPHOCYTES # (AUTO) 1.8 10^3/uL (1.5-3.5); LYMPHOCYTES % (AUTO) 29.9 %; MEAN CORPUSCULAR HEMOGLOBIN 33.2 pg (27.0-31.0); MEAN CORPUSCULAR HGB CONC 33.9 g/dL (32.0-36.0); MEAN CORPUSCULAR VOLUME 98.1 fL (81.0-99.0); MEAN PLATELET VOLUME 7.6 fL (7.9-10.8); NEUTROPHILS # (AUTO) 3.2 10^3/uL (1.5-6.6); NEUTROPHILS % (AUTO) 51.9 %; PLT - PLATELET COUNT 136 10^3/uL (130-450); RED BLOOD COUNT 3.36 10^6/uL (4.20-5.40); RED CELL DISTRIBUTION WIDTH 16.2 % (12.0-15.0); WHITE BLOOD COUNT 6.2 x10^3/uL (4.8-10.8)
[2019-02-17] MEDS ORDERED: MORPHINE 2 MG/ML CARPUJECT IVP STA (21:50)
[2019-02-17 21:56] LABS: INR 1.4 (0.8-1.2); PT - PROTHROMBIN TIME 16.2 secs (9.9-12.6)
[2019-02-17 22:00] LABS: BILIRUBIN,TOTAL 0.9 mg/dL (0.2-1.0); CALCIUM 8.3 mg/dL (8.5-10.3); CREATININE 0.5 mg/dL (0.4-1.0); MAGNESIUM 1.9 mg/dL (1.7-2.8); TOTAL PROTEIN 5.9 g/dL (6.7-8.2)
[2019-02-17] MEDS ORDERED: THIAMINE INJ 100 MG in SODIUM CHLORIDE 0.9% 50 ML IV STA (22:11)
[2019-02-17] MEDS ORDERED: LORazepam 2 MG/ML VIAL IVP STA (22:11)
[2019-02-18] MEDS ORDERED: LORazepam 2 MG/ML VIAL IVP STA ×5 (00:29→17:28)
[2019-02-18 05:32] LABS: HGB - HEMOGLOBIN 10.6 g/dL (12.0-16.0)
[2019-02-18] MEDS ORDERED: LORazepam 2 MG/ML VIAL ONE (15:21)
[2019-02-18 16:05] VITALS: BP 107/73
== END 2019-02-18 17:29 | disposition home or self-care (01) ==
LOC: EDUNIT# → ED 21:10
DX: K70.31 Alcoholic cirrhosis of liver with ascites (principal); F10.220 Alcohol dependence with intoxication, uncomplicated; Y90.6 Blood alcohol level of 120-199 mg/100 ml; I85.10 Secondary esophageal varices without bleeding; F41.9 Anxiety disorder, unspecified; F17.200 Nicotine dependence, unspecified, uncomplicated
CPT/HCPCS: 36415; 80053; 80320; 83605; 83690; 83735; 85014; 85018; 85025; 85610; 86850; 86900; 86901; 93005; 99284; J2060; J2354; J3411; J7040; 80306; 86920

== ENCOUNTER 2019-03-03 08:44 | Emergency (ER) | payer MEDICAID ==
[2019-03-03] MEDS ORDERED: PANTOPRAZOLE 40 MG VIAL IVP STA (09:25)
[2019-03-03] MEDS ORDERED: FAMOTIDINE 20 MG/2 ML VIAL IVP STA (09:25)
[2019-03-03] MEDS ORDERED: SUCRALFATE 1 GM/10 ML UDC PO STA (09:25)
[2019-03-03] MEDS ORDERED: PHENobarb/HYOSCY/ATROPINE/SCOP 5 ML UDC PO STA ×2 (09:25→09:51)
[2019-03-03] MEDS ORDERED: LIDOCAINE VISCOUS 2% 15 ML UDC MM STA (09:27)
[2019-03-03] MEDS ORDERED: chlordiazePOXIDE 25 MG CAPSULE PO STA (09:31)
--- NOTE | 2019-03-03 09:31 | ED Physician Documentation ---
PD HPI ABD PAIN - Stated complaint Stated Complaint: ABD PX/POST OP COMPLICATIONS - Chief complaint Chief Complaint: Abd Pain - History obtained from History obtained from: Patient - History of Present Illness Timing - onset: Other (several days) Timing - duration: Days (3) Timing - details: Gradual onset Pain level max: 9 Pain level now: 8 Quality: Aching, Pain Location: Epigastric Improved by: Other (nothing) Worsened by: Eating, Palpation Associated symptoms: Nausea. No: Fever, Vomiting, Hematemesis, Diarrhea, Constipation, Melena, Hematochezia, Dysuria, Hematuria Recently seen: Not recently seen Review of Systems Ten Systems: 10 systems reviewed and negative Constitutional: denies: Fever, Chills Nose: denies: Rhinorrhea / runny nose, Congestion Throat: denies: Sore throat GI: denies: Vomiting, Diarrhea Skin: denies: Rash Musculoskeletal: denies: Neck pain, Back pain Neurologic: denies: Headache PD PAST MEDICAL HISTORY - Past Medical History Cardiovascular: Coronary artery disease, [place], Murmur Respiratory: Shortness of breath Neuro: Headaches, Migraines, Tremors Endocrine/Autoimmune: None GI: GERD, Pancreatitis, Hepatitis, Cirrhosis, Cholelithiasis (sludge in gallbladder), Other DIE DEVELOPER: None : Nocturia HEENT: Chronic sinusitis Psych: Depression, Anxiety, ADD/ADHD, Post traumatic stress disorder Musculoskeletal: Osteoarthritis, Chronic back pain Derm: None - Past Surgical History Past Surgical History: Yes General: Other Ortho: Other /DIE DEVELOPER: Tubal ligation, Breast implants HEENT: Other - Present Medications Home Medications: Ambulatory Orders Medication Instructions Recorded Confirmed Lipase/Protease/Amylase [Bulmaro [place] 1 each PO TIDWM #90 capsule. 07/13/18 02/12/19 24,000 Units Capsule] Multivitamin [Multiple Vitamins] 1 each PO DAILY #10 tablet 09/22/18 02/12/19 Spironolactone [Aldactone] 25 mg PO BID 12/06/18 02/12/19 Naloxone HCl [Narcan] 1 spray ALLI PRN PRN 02/12/19 02/12/19 Magnesium Oxide [Mag Ox] 400 mg PO BIDWM #60 tablet 02/14/19 Propranolol [Inderal] 10 mg PO BID #60 tablet 02/14/19 Thiamine [Vitamin B-1] 100 mg PO DAILY #30 tablet 02/14/19 oxyCODONE [Roxicodone] 5 mg PO Q4HR PRN #25 tablet 02/14/19 Furosemide [Lasix] 20 mg PO DAILY #14 tablet 03/03/19 Pantoprazole [Protonix] 40 mg PO BID #30 tablet 03/03/19 oxyCODONE [Roxicodone] 5 mg PO Q4-6H PRN #14 tablet 03/03/19 - Allergies Allergies/Adverse Reactions: Allergies Allergy/AdvReac Type Severity Reaction Status Date / Time ketorolac tromethamine * Allergy Severe Hives Verified 03/03/19 09:02 [From Toradol] - Social History Does the pt smoke?: Yes Smoking Status: Current every day smoker Does the pt drink ETOH?: No Does the pt have substance abuse?: No - Immunizations Immunizations are current?: No Immunizations: TDAP >10years/unknown - POLST Patient has POLST: No POLST Status: Full Code PD ED PE NORMAL - Vitals Vital signs reviewed: Yes - General General: Alert and oriented X 3, No acute distress, Well developed/nourished - HEENT HEENT: PERRL, Moist mucous membranes - Neck Neck: Supple, no meningeal sign - Cardiac Cardiac: RRR, Strong equal pulses - Respiratory Respiratory: No respiratory distress, Clear bilaterally - Abdomen Abdomen: Normal bowel sounds, Soft, Other (mild distension. mild epigastric TTP. no peritoneal signs. ) - Derm Derm: Warm and dry, No rash - Extremities Extremities: No edema - Neuro Neuro: Alert and oriented X 3 - Psych Psych: Normal mood, Normal affect Results - Vitals Vitals: Vital Signs - 24 hr 03/03/19 03/03/19 08:57 10:20 Temperature 36.2 C L Heart Rate 101 H 90 Respiratory 22 15 Rate Blood Pressure 112/95 H 93/52 L O2 Saturation 97 96 Oxygen O2 Source Room air - Labs Labs: Laboratory Tests 03/03/19 03/03/19 03/03/19 09:32 09:32 09:32 WBC 10.7 RBC 4.19 L Hgb 12.1 Hct 38.7 MCV 92.4 MCH 28.9 MCHC 31.3 L RDW 16.8 H Plt Count 373 MPV 9.2 Neut # (Auto) 6.8 H Lymph # (Auto) 2.7 [place] # (Auto) 0.9 Eos # (Auto) 0.2 Baso # (Auto) 0.1 Absolute Nucleated RBC 0.00 Nucleated RBC % 0.0 PT 16.0 H INR 1.4 H APTT 34.9 H Sodium 139 Potassium 3.7 Chloride 105 Carbon Dioxide 22 Anion Gap 12.0 BUN 10 Creatinine 0.7 Estimated GFR (MDRD) 86 L Glucose 119 H Calcium 9.2 Total Bilirubin 0.9 AST 61 H ALT 28 Alkaline Phosphatase 91 Total Protein 7.0 Albumin 3.2 Globulin 3.8 Albumin/Globulin Ratio 0.8 L Lipase 159 H Urine Color Urine Clarity Urine pH Ur Specific [place] Urine Protein Urine Glucose (UA) Urine Ketones Urine Occult Blood Urine Nitrite Urine Bilirubin Urine Urobilinogen Ur Leukocyte Esterase Urine RBC Urine WBC Ur Squamous Epith Cells Amorphous Sediment Urine Bacteria Urine Casts Ur Microscopic Review Urine Culture Comments Urine Opiates Screen Ur Oxycodone Screen Urine Methadone Screen Ur Propoxyphene Screen Ur Barbiturates Screen Ur Tricyclics Screen Ur Phencyclidine Scrn Ur Amphetamine Screen U Methamphetamines Scrn U Benzodiazepines Scrn Urine Cocaine Screen U Cannabinoids Screen Ethyl Alcohol < 5.0 03/03/19 03/03/19 09:34 09:34 WBC RBC Hgb Hct MCV MCH MCHC RDW Plt Count MPV Neut # (Auto) Lymph # (Auto) [place] # (Auto) Eos # (Auto) Baso # (Auto) Absolute Nucleated RBC Nucleated RBC % PT INR APTT Sodium Potassium Chloride Carbon Dioxide Anion Gap BUN Creatinine Estimated GFR (MDRD) Glucose Calcium Total Bilirubin AST ALT Alkaline Phosphatase Total Protein Albumin Globulin Albumin/Globulin Ratio Lipase Urine Color YELLOW Urine Clarity CLOUDY Urine pH 7.5 Ur Specific [place] 1.015 Urine Protein NEGATIVE Urine Glucose (UA) NEGATIVE Urine Ketones NEGATIVE Urine Occult Blood TRACE-INTA Urine Nitrite NEGATIVE Urine Bilirubin NEGATIVE Urine Urobilinogen 0.2 (NORMAL) Ur Leukocyte Esterase NEGATIVE Urine RBC 0-5 Urine WBC 0-3 Ur Squamous Epith Cells MANY Squamous H Amorphous Sediment Marked Urine Bacteria Many H Urine Casts 6-10 Granular Casts Ur Microscopic Review INDICATED Urine Culture Comments NOT INDICATED Urine Opiates Screen NEGATIVE Ur Oxycodone Screen NEGATIVE Urine Methadone Screen NEGATIVE Ur Propoxyphene Screen NEGATIVE Ur Barbiturates Screen NEGATIVE Ur Tricyclics Screen NEGATIVE Ur Phencyclidine Scrn NEGATIVE Ur Amphetamine Screen NEGATIVE U Methamphetamines Scrn NEGATIVE U Benzodiazepines Scrn POSITIVE H Urine Cocaine Screen NEGATIVE U Cannabinoids Screen NEGATIVE Ethyl Alcohol PD MEDICAL DECISION MAKING - ED course Complexity details: reviewed old records ([facility] d/c summary.), reviewed results, re-evaluated patient, considered differential, d/w patient ED course: Patient with alcoholic cirrhosis and mild ascites. No diffuse abdominal tenderness. No fevers. No leukocytosis. No evidence of SBP. She does have chronic epigastric pain from chronic pancreatitis. No significant change to GI cocktail. Is not taking her Protonix. Pain improved with IV Protonix and a single dose of oxycodone. Will prescribe a small amount of pain medications for home. We will follow-up with her doctor for further evaluation and care. No indication for emergent paracentesis at this time. Recommend she have this performed with radiology next week. She will contact her doctor's office on Tuesday for this referral. Patient counseled regarding signs and symptoms for which I believe and urgent re-evaluation would be necessary. Patient with good understanding of and agreement to plan and is comfortable going home at this time This document was made in part using voice recognition software. While efforts are made to proofread this document, sound alike and grammatical errors may occur. Departure - Departure Disposition: Home, Self Care Clinical Impression: Chronic pancreatitis Qualifiers: Pancreatitis type: alcohol induced Qualified Code(s): K86.0 - Alcohol-induced chronic pancreatitis Ascites Qualifiers: Ascites type: due to alcoholic cirrhosis Qualified Code(s): K70.31 - Alcoholic cirrhosis of liver with ascites Condition: Stable Health Concerns: abd pain Plan of Treatment: lasix, pain control Care Goals: improve condition Assessment: improved Instructions: Pancreatitis Chronic Dc, ED Ascites Follow-Up: Phyllis Daugherty DNP [Credentialed Staff Provider] - Within 1 week Prescriptions: Furosemide [Lasix] 20 mg PO DAILY #14 tablet oxyCODONE [Roxicodone] 5 mg PO Q4-6H PRN #14 tablet PRN Reason: Abdominal Pain Pantoprazole [Protonix] 40 mg PO BID #30 tablet Comments: Use the medications as prescribed. Follow-up with your doctor for further care. Return if you worsen. You should contact the clinic on Tuesday to have your paracentesis scheduled with radiology. Do not drink alcohol or drive while on narcotic pain medicine. Note that many narcotic pain relievers also contain tylenol/acetaminophen. Please ensure that your total dose of acetaminophen from all sources does not exceed 3 grams (3000mg) per day. You may constipated on this medication, take a stool softener such as "Colace" twice a day while you are on it. Also recommend a [id number] laxative such as senna or MiraLAX any day that you do not have a bowel movement. If you received narcotic pain medication in the emergency department, do not drive or operate machinery for the next 24 hours.
[2019-03-03] MEDS ORDERED: PHENobarb/HYOSCY/ATROPINE/SCOP 5 ML SYRINGE PO STA ×2 (09:37→09:59)
[2019-03-03 09:43] LABS: BILIRUBIN,URINE NEGATIVE (NEGATIVE); GLUCOSE, URINE (UA) NEGATIVE (NEGATIVE); KETONES,URINE (UA) NEGATIVE (NEGATIVE); LEUKOCYTE ESTERASE, URINE NEGATIVE (NEGATIVE); NITRITE,URINE NEGATIVE (NEGATIVE); OCCULT BLOOD,URINE TRACE-INTA (NEGATIVE); PH,URINE 7.5 PH (5.0-7.5); PROTEIN,URINE NEGATIVE (NEGATIVE); UROBILINOGEN,URINE 0.2 (NORMAL) E.U./dL (NORMAL)
[2019-03-03 09:59] LABS: AMORPHOUS SEDIMENT,UR Marked /LPF; BACTERIA,URINE Many /HPF (None Seen); CLARITY,URINE CLOUDY (CLEAR); RBC,URINE 0-5 /HPF (0-5); SQUAMOUS EPITHELIAL CELL,UR MANY Squamous (<= Few)
[2019-03-03 09:59] LABS: BASOPHILS # (AUTO) 0.1 10^3/uL (0.0-0.1); BASOPHILS % (AUTO) 0.6 %; EOSINOPHILS # (AUTO) 0.2 10^3/uL (0.0-0.7); EOSINOPHILS % (AUTO) 2.2 %; HGB - HEMOGLOBIN 12.1 g/dL (12.0-16.0); LYMPHOCYTES # (AUTO) 2.7 10^3/uL (1.5-3.5); LYMPHOCYTES % (AUTO) 25.4 %; MEAN CORPUSCULAR HEMOGLOBIN 28.9 pg (27.0-31.0); MEAN CORPUSCULAR HGB CONC 31.3 g/dL (32.0-36.0); MEAN CORPUSCULAR VOLUME 92.4 fL (81.0-99.0); MEAN PLATELET VOLUME 9.2 fL (7.9-10.8); MONOCYTES # (AUTO) 0.9 10^3/uL (0.0-1.0); NEUTROPHILS # (AUTO) 6.8 10^3/uL (1.5-6.6); NEUTROPHILS % (AUTO) 63.3 %; PLT - PLATELET COUNT 373 10^3/uL (130-450); RED BLOOD COUNT 4.19 10^6/uL (4.20-5.40); RED CELL DISTRIBUTION WIDTH 16.8 % (12.0-15.0); WHITE BLOOD COUNT 10.7 x10^3/uL (4.8-10.8)
[2019-03-03 10:08] LABS: ALBUMIN 3.2 g/dL (3.2-5.5); ALBUMIN/GLOBULIN RATIO 0.8 (1.0-2.2); ALKALINE PHOSPHATASE 91 IU/L (42-121); ALT ALANINE AMINOTRANSFERASE 28 IU/L (10-60); AST ASPARTATE AMINOTRANSFERASE 61 IU/L (10-42); BILIRUBIN,TOTAL 0.9 mg/dL (0.2-1.0); BUN - BLOOD UREA NITROGEN 10 mg/dL (6-20); CALCIUM 9.2 mg/dL (8.5-10.3); CARBON DIOXIDE - CO2 22 mmol/L (21-32); CHLORIDE 105 mmol/L (101-111); CREATININE 0.7 mg/dL (0.4-1.0); GFR - MDRD 86 (>89); GLUCOSE 119 mg/dL (70-100); LIPASE 159 U/L (22-51); SODIUM 139 mmol/L (135-145)
[2019-03-03 10:12] LABS: MUDS CUTOFF CONCENTRATIONS CUTOFF CONC BELOW:
[2019-03-03 10:12] LABS: INR 1.4 (0.8-1.2)
[2019-03-03 10:19] LABS: PARTIAL THROMBOPLASTIN TIME 34.9 secs (24.9-33.3)
[2019-03-03 10:23] LABS: AMPHETAMINE SCREEN,URINE NEGATIVE (NEGATIVE); BENZODIAZEPINES SCREEN, URINE POSITIVE (NEGATIVE); COCAINE SCREEN URINE NEGATIVE (NEGATIVE); METHADONE SCREEN, URINE NEGATIVE (NEGATIVE); METHAMPHETAMINES SCREEN, URINE NEGATIVE (NEGATIVE); OPIATE SCREEN, URINE NEGATIVE (NEGATIVE); OXYCODONE SCREEN, URINE NEGATIVE (NEGATIVE); PROPOXYPHENE SCREEN, URINE NEGATIVE (NEGATIVE); TRICYCLIC ANTIDEPRESSANT,URINE NEGATIVE (NEGATIVE)
[2019-03-03] MEDS ORDERED: oxyCODONE 5 MG TABLET PO STA (10:45)
[2019-03-03 11:04] VITALS: BP 109/74
== END 2019-03-03 11:07 | disposition home or self-care (01) ==
LOC: ED 08:44
DX: K86.0 Alcohol-induced chronic pancreatitis (principal); K70.31 Alcoholic cirrhosis of liver with ascites; F17.200 Nicotine dependence, unspecified, uncomplicated
CPT/HCPCS: 36415; 80053; 80306; 80320; 81001; 83690; 85025; 85610; 85730; 96374; 99283; 99284; A9270; 81003; 87086

== ENCOUNTER 2019-03-11 11:57 | Outpatient (CLI) | payer MEDICAID ==
[2019-03-11 12:50] LABS: ALBUMIN 3.3 g/dL (3.2-5.5); ALBUMIN/GLOBULIN RATIO 0.8 (1.0-2.2); CALCIUM 9.1 mg/dL (8.5-10.3); CREATININE 0.7 mg/dL (0.4-1.0); TOTAL PROTEIN 7.3 g/dL (6.7-8.2)
== END 2019-03-11 11:58 | disposition home or self-care (01) ==
LOC: LAB 11:57
PROVIDERS: ATTEND Family Medicine
DX: K72.90 Hepatic failure, unspecified without coma (principal); K86.1 Other chronic pancreatitis
CPT/HCPCS: 36415; 80053; 82150; 83690; 85025; 85610

== ENCOUNTER 2019-03-12 11:16 | Outpatient (CLI) | payer MEDICAID ==
[2019-03-12 11:38] LABS: BASOPHILS % (AUTO) 0.2 %; EOSINOPHILS # (AUTO) 0.2 10^3/uL (0.0-0.7); EOSINOPHILS % (AUTO) 3.9 %; HGB - HEMOGLOBIN 10.2 g/dL (12.0-16.0); LYMPHOCYTES # (AUTO) 1.5 10^3/uL (1.5-3.5); LYMPHOCYTES % (AUTO) 33.8 %; MEAN CORPUSCULAR HEMOGLOBIN 28.8 pg (27.0-31.0); MEAN CORPUSCULAR HGB CONC 31.7 g/dL (32.0-36.0); MEAN PLATELET VOLUME 9.5 fL (7.9-10.8); MONOCYTES # (AUTO) 0.6 10^3/uL (0.0-1.0); MONOCYTES % (AUTO) 14.4 %; NEUTROPHILS # (AUTO) 2.1 10^3/uL (1.5-6.6); NEUTROPHILS % (AUTO) 47.2 %; PLT - PLATELET COUNT 199 10^3/uL (130-450); RED BLOOD COUNT 3.54 10^6/uL (4.20-5.40); RED CELL DISTRIBUTION WIDTH 16.1 % (12.0-15.0); WHITE BLOOD COUNT 4.4 x10^3/uL (4.8-10.8)
[2019-03-12 11:49] LABS: INR 1.4 (0.8-1.2); PT - PROTHROMBIN TIME 15.6 secs (9.9-12.6)
== END 2019-03-12 11:17 | disposition home or self-care (01) ==
LOC: LAB 11:16
PROVIDERS: ATTEND Family Medicine
DX: K72.90 Hepatic failure, unspecified without coma (principal); K86.1 Other chronic pancreatitis; K86.81 Exocrine pancreatic insufficiency
CPT/HCPCS: 36415; 85025; 85610

== ENCOUNTER 2019-04-26 17:54 | Outpatient (CLI) | payer MEDICAID | END 2019-04-26 17:55 | disposition critical access hospital (66) | LOC: EMS 17:54 | PROVIDERS: ATTEND Surgery | DX: K92.0 Hematemesis (principal); K92.1 Melena | CPT/HCPCS: A0425; A0429; A0999 ==

== ENCOUNTER 2019-04-26 18:03 | Emergency (ER) | payer MEDICAID ==
[2019-04-26 18:50] LABS: BASOPHILS % (AUTO) 0.3 %; EOSINOPHILS # (AUTO) 0.1 10^3/uL (0.0-0.7); EOSINOPHILS % (AUTO) 1.1 %; LYMPHOCYTES # (AUTO) 3.3 10^3/uL (1.5-3.5); LYMPHOCYTES % (AUTO) 29.5 %; MEAN CORPUSCULAR HGB CONC 32.1 g/dL (32.0-36.0); MEAN PLATELET VOLUME 9.3 fL (7.9-10.8); MONOCYTES # (AUTO) 0.6 10^3/uL (0.0-1.0); MONOCYTES % (AUTO) 5.6 %; NEUTROPHILS % (AUTO) 62.9 %; PLT - PLATELET COUNT 171 10^3/uL (130-450); RED CELL DISTRIBUTION WIDTH 21.5 % (12.0-15.0); WHITE BLOOD COUNT 11.1 x10^3/uL (4.8-10.8)
[2019-04-26 18:54] LABS: HGB - HEMOGLOBIN 5.4 g/dL (12.0-16.0)
[2019-04-26] MEDS ORDERED: OCTREOTIDE 500 MCG in SODIUM CHLORIDE 0.9% 100ML 95 ML IV STA (18:55)
[2019-04-26] MEDS ORDERED: cefTRIAXone 1 GM in SODIUM CHLORIDE 0.9% MINIBAG 100 ML IV STA (18:55)
[2019-04-26] MEDS ORDERED: OCTREOTIDE 100 MCG/ML VIAL IVP STA (18:55)
[2019-04-26] MEDS ORDERED: PANTOPRAZOLE 80 MG in SODIUM CHLORIDE 0.9% 100ML 100 ML IV STA ×4 (18:55)
[2019-04-26 19:02] LABS: INR 1.4 (0.8-1.2); PT - PROTHROMBIN TIME 16.2 secs (9.9-12.6)
[2019-04-26 19:06] LABS: ALBUMIN 3.6 g/dL (3.2-5.5); BILIRUBIN,TOTAL 0.7 mg/dL (0.2-1.0); CALCIUM 9.2 mg/dL (8.5-10.3); CREATININE 0.8 mg/dL (0.4-1.0); TOTAL PROTEIN 7.2 g/dL (6.7-8.2)
[2019-04-26] MEDS ORDERED: MORPHINE 2 MG/ML CARPUJECT IVP STA ×3 (19:16→20:59)
[2019-04-26] MEDS ORDERED: ONDANSETRON 4 MG/2 ML VIAL IVP STA (19:16)
--- NOTE | 2019-04-26 19:17 | ED Physician Documentation ---
History of Present Illness - Stated complaint Stated Complaint: VOMITED BLOOD 4 DAYS AGO - Chief complaint Chief Complaint: Abd Pain - History obtained from History obtained from: Patient - History of Present Illness Timing: Other (This is a 58-year-old woman with alcoholic cirrhosis who continues to drink despite having trouble with esophageal varices and bleeding. She says she has been bleeding for 4 to 5 days with hematemesis all over her bedroom. She feels weak and dizzy and did pass out a couple of days ago and hit her head on something and has a persistent headache as well. The only other pain is in her epigastrium. She was last banded a couple of months ago at [facility]. She is noncompliant with her medications because she cannot get down the stairs to where she keeps the medications.) Review of Systems Ten Systems: 10 systems reviewed and negative Constitutional: reports: Fatigue. denies: Fever, Chills Cardiac: denies: Chest pain / pressure, Palpitations Respiratory: denies: Dyspnea, Cough GI: reports: Abdominal Pain, Nausea, Vomiting, Hematemesis, Bloody / black stool. denies: Diarrhea PD PAST MEDICAL HISTORY - Past Medical History Cardiovascular: Coronary artery disease, OR, Murmur Respiratory: Shortness of breath Neuro: Headaches, Migraines, Tremors Endocrine/Autoimmune: None GI: GERD, Pancreatitis, Hepatitis, Cirrhosis, Cholelithiasis (sludge in gallbladder), Other [employer] MEMBER: None : Nocturia HEENT: Chronic sinusitis Psych: Depression, Anxiety, ADD/ADHD, Post traumatic stress disorder Musculoskeletal: Osteoarthritis, Chronic back pain Derm: None - Past Surgical History Past Surgical History: Yes General: Other Ortho: Other /[employer] MEMBER: Tubal ligation, Breast implants HEENT: Other - Present Medications Home Medications: Ambulatory Orders Medication Instructions Recorded Confirmed Lipase/Protease/Amylase [Bulmaro Rosario 1 each PO TIDWM #90 capsule. 07/13/18 02/12/19 24,000 Units Capsule] Multivitamin [Multiple Vitamins] 1 each PO DAILY #10 tablet 09/22/18 02/12/19 Spironolactone [Aldactone] 25 mg PO BID 12/06/18 02/12/19 Naloxone HCl [Narcan] 1 spray ALLI PRN PRN 02/12/19 02/12/19 Magnesium Oxide [Mag Ox] 400 mg PO BIDWM #60 tablet 02/14/19 Propranolol [Inderal] 10 mg PO BID #60 tablet 02/14/19 Thiamine [Vitamin B-1] 100 mg PO DAILY #30 tablet 02/14/19 oxyCODONE [Roxicodone] 5 mg PO Q4HR PRN #25 tablet 02/14/19 Furosemide [Lasix] 20 mg PO DAILY #14 tablet 03/03/19 Pantoprazole [Protonix] 40 mg PO BID #30 tablet 03/03/19 oxyCODONE [Roxicodone] 5 mg PO Q4-6H PRN #14 tablet 03/03/19 - Allergies Allergies/Adverse Reactions: Allergies Allergy/AdvReac Type Severity Reaction Status Date / Time ketorolac tromethamine * Allergy Severe Hives Verified 03/03/19 09:02 [From Toradol] - Social History Does the pt smoke?: Yes Smoking Status: Current every day smoker Does the pt drink ETOH?: No Does the pt have substance abuse?: No - Immunizations Immunizations are current?: No Immunizations: TDAP >10years/unknown - POLST Patient has POLST: No POLST Status: Full Code PD ED PE NORMAL - Vitals Vital signs reviewed: Yes - General General: Alert and oriented X 3, No acute distress - HEENT HEENT: PERRL, EOMI - Neck Neck: Supple, no meningeal sign, No bony TTP - Cardiac Cardiac: RRR, No murmur - Respiratory Respiratory: No respiratory distress, Clear bilaterally - Abdomen Abdomen: Other (Mild epigastric tenderness without surgical signs, small volume ascites, not tense, no diffuse tenderness.) - Derm Derm: Normal color, Warm and dry, No rash - Extremities Extremities: No edema, No calf tenderness / cord - Neuro Neuro: Alert and oriented X 3, Normal speech Results - Vitals Vitals: Vital Signs - 24 hr 04/26/19 04/26/19 04/26/19 18:11 20:26 20:42 Temperature 37.3 C 37.1 C 37.4 C Heart Rate 101 H 90 91 Respiratory 16 25 H 17 Rate Blood Pressure 99/61 86/54 L 90/55 L O2 Saturation 100 04/26/19 21:07 Temperature Heart Rate 88 Respiratory 25 H Rate Blood Pressure 91/55 L O2 Saturation 100 Oxygen O2 Source Room air - Labs Labs: Laboratory Tests 04/26/19 04/26/1919 18:38 18:38 18:38 WBC 11.1 H RBC 2.00 L Hgb 5.4 L* Hct 16.8 L* MCV 84.0 MCH 27.0 MCHC 32.1 RDW 21.5 H Plt Count 171 MPV 9.3 Neut # (Auto) 7.0 H Lymph # (Auto) 3.3 [place] # (Auto) 0.6 Eos # (Auto) 0.1 Baso # (Auto) 0.0 Absolute Nucleated RBC 0.02 Nucleated RBC % 0.2 Platelet Estimate NORMAL (130-450,000) Platelet Morphology NORMAL APPEARANCE RBC Morph Micro Appear 1+ POLYCHROMASIA PT 16.2 H INR 1.4 H Sodium 133 L Potassium 3.3 L Chloride 94 L Carbon Dioxide 19 L Anion Gap 20.0 H BUN 20 Creatinine 0.8 Estimated GFR (MDRD) 74 L Glucose 125 H Calcium 9.2 Total Bilirubin 0.7 AST 254 H ALT 181 H Alkaline Phosphatase 97 Total Protein 7.2 Albumin 3.6 Globulin 3.6 Albumin/Globulin Ratio 1.0 Lipase 175 H Ethyl Alcohol 188.2 Blood Type Antibody Screen Crossmatch IS Only 04/26/19 18:38 WBC RBC Hgb Hct MCV MCH MCHC RDW Plt Count MPV Neut # (Auto) Lymph # (Auto) [place] # (Auto) Eos # (Auto) Baso # (Auto) Absolute Nucleated RBC Nucleated RBC % Platelet Estimate Platelet Morphology RBC Morph Micro Appear PT INR Sodium Potassium Chloride Carbon Dioxide Anion Gap BUN Creatinine Estimated GFR (MDRD) Glucose Calcium Total Bilirubin AST ALT Alkaline Phosphatase Total Protein Albumin Globulin Albumin/Globulin Ratio Lipase Ethyl Alcohol Blood Type A POSITIVE Antibody Screen NEGATIVE Crossmatch IS Only See Detail - Rads (name of study) Ct Head Radiology: EMP read contemporaneously (no ICH) Procedures - General procedure General procedure: Prior to my personal evaluation I had written triage orders including 2 IVs. The nurses were only able to find one. I placed a second IV, and 18-gauge in the right external jugular vein after ChloraPrep which diony and flushed well. Subsequent to that the nurse needed more access for all the drips and what not. I placed a second external jugular IV, peripheral 20-gauge in the left external jugular vein this time after ChloraPrep which flushed and diony well. PD MEDICAL DECISION MAKING - ED course ED course: 58-year-old woman with history of alcoholic cirrhosis and known varices presents with 4 days of hematemesis. She has a mild shock index with a heart rate of 105 and a systolic of 99. She has a hemoglobin of 5.6. She hit her head a couple of days ago but a head CT showed no intracranial hemorrhage. She was started on both octreotide and Protonix drips. Blood was readied and transfused. She received 1 g of Rocephin IV. Initially I called [facility] for potential transfer to a GI capable facility, their ICU was full. We follow this by calling [facility], their ICU was full. We called this by calling [place] and I discussed the case with her GI doctor office assistant receptionist there, Dr Ryan, who will see in consult. But deferred to the cue selector for admission. They were paged at approximately 8:[address] Salomon, the cue selector in [place] at 9:24 PM. - Critical Care Time(min): 45 Time Includes: Direct patient care, Review records, Reassess patient, Document care, Coordinate care, Medical consult Procedures included in critical care time: Peripheral IV Departure - Departure Disposition: 02 Transfer Acute Care Hosp Clinical Impression: H/O ETOH abuse, LFT elevation, Alcoholic hepatitis with ascites Fall from slip, trip, or stumble Qualifiers: Encounter type: initial encounter Qualified Code(s): W01.0XXA - Fall on same level from slipping, tripping and stumbling without subsequent striking against object, initial encounter Pancreatitis, chronic Qualifiers: Pancreatitis type: alcohol induced Qualified Code(s): K86.0 - Alcohol-induced chronic pancreatitis Hematemesis Qualifiers: Nausea presence: with nausea Qualified Code(s): K92.0 - Hematemesis Esophageal varices with hemorrhage Qualifiers: Esophageal varices type: secondary Qualified Code(s): I85.11 - Secondary esophageal varices with bleeding Head injury Qualifiers: Encounter type: initial encounter Qualified Code(s): S09.90XA - Unspecified injury of head, initial encounter Condition: Critical
[2019-04-26 19:40] LABS: PLATELET ESTIMATE, MANUAL NORMAL (130-450,000) (NORMAL); PLATELET MORPHOLOGY NORMAL APPEARANCE (NORMAL)
--- NOTE | 2019-04-26 20:26 | CT Report ---
Reason: head inj Procedure Date: 04/26/2019 Accession Number: [id number] / [id number] Procedure: CT - HEAD WO CPT Code: FULL RESULT: EXAM: CT HEAD EXAM DATE: 04/26/2019 08:01 PM. CLINICAL HISTORY: Head inj. Scalp swelling COMPARISON: FACIAL [facility]ES W/O 02/11/2019 6:11 PM. TECHNIQUE: Multiaxial CT images were obtained from the foramen magnum to the vertex. Reformats: Sagittal and coronal. IV contrast: None. In accordance with CT protocol optimization, one or more of the following dose reduction techniques were utilized for this exam: automated exposure control, adjustment of mA and/or KV based on patient size, or use of iterative reconstructive technique. FINDINGS: Parenchyma: No intraparenchymal hemorrhage. No evidence of mass, midline shift, or CT findings of infarction. Mcbride-white differentiation is distinct. Extraaxial Spaces: Normal for age. No subdural or epidural collections identified. Ventricles: Normal in size and position. Sinuses and Orbits: Imaged paranasal sinuses, orbits, and mastoids show no significant abnormality. Bones: There is posterior left scalp hematoma. There is no calvarium fracture. Other: None. IMPRESSION: 1. Posterior left scalp hematoma without fracture. 2. Negative for an acute or focal intracranial abnormality. RADIA
[2019-04-26 23:50] VITALS: BP 93/67
== END 2019-04-26 23:50 | disposition short-term general hospital (02) ==
LOC: EDUNIT# → ED 18:03
DX: F10.10 Alcohol abuse, uncomplicated (principal); R79.89 Other specified abnormal findings of blood chemistry; K70.11 Alcoholic hepatitis with ascites; K86.0 Alcohol-induced chronic pancreatitis; K92.0 Hematemesis; I85.11 Secondary esophageal varices with bleeding; S09.90XA Unspecified injury of head, initial encounter; W19.XXXA Unspecified fall, initial encounter; F17.200 Nicotine dependence, unspecified, uncomplicated
CPT/HCPCS: 36415; 36430; 70450; 80053; 80320; 83690; 85025; 85610; 86850; 86900; 86901; 86920; 96365; 96366; 96368; 96375; 96376; 99285; 99291; J2354; P9016

== ENCOUNTER 2019-05-08 15:57 | Outpatient (CLI) | payer MEDICAID ==
[2019-05-08 16:21] LABS: BASOPHILS % (AUTO) 0.7 %; EOSINOPHILS # (AUTO) 0.1 10^3/uL (0.0-0.7); EOSINOPHILS % (AUTO) 1.9 %; HGB - HEMOGLOBIN 11.2 g/dL (12.0-16.0); LYMPHOCYTES # (AUTO) 1.6 10^3/uL (1.5-3.5); MEAN CORPUSCULAR HEMOGLOBIN 27.6 pg (27.0-31.0); MEAN CORPUSCULAR HGB CONC 30.9 g/dL (32.0-36.0); MEAN CORPUSCULAR VOLUME 89.4 fL (81.0-99.0); MEAN PLATELET VOLUME 9.4 fL (7.9-10.8); MONOCYTES # (AUTO) 0.7 10^3/uL (0.0-1.0); MONOCYTES % (AUTO) 11.5 %; NEUTROPHILS # (AUTO) 3.3 10^3/uL (1.5-6.6); NEUTROPHILS % (AUTO) 57.6 %; PLT - PLATELET COUNT 220 10^3/uL (130-450); RED BLOOD COUNT 4.06 10^6/uL (4.20-5.40); RED CELL DISTRIBUTION WIDTH 18.6 % (12.0-15.0); WHITE BLOOD COUNT 5.8 x10^3/uL (4.8-10.8)
[2019-05-08 16:35] LABS: ALBUMIN 3.2 g/dL (3.2-5.5); ALBUMIN/GLOBULIN RATIO 0.8 (1.0-2.2); BILIRUBIN,TOTAL 0.4 mg/dL (0.2-1.0); CALCIUM 8.8 mg/dL (8.5-10.3); CREATININE 0.8 mg/dL (0.4-1.0)
== END 2019-05-08 15:58 | disposition home or self-care (01) ==
LOC: LAB 15:57
PROVIDERS: ATTEND Family Medicine
DX: K86.1 Other chronic pancreatitis (principal)
CPT/HCPCS: 36415; 80053; 82150; 83690; 85025

== ENCOUNTER 2019-05-21 10:26 | Outpatient (CLI) | payer MEDICAID ==
[2019-05-21 10:39] LABS: BASOPHILS % (AUTO) 0.7 %; EOSINOPHILS # (AUTO) 0.2 10^3/uL (0.0-0.7); EOSINOPHILS % (AUTO) 3.4 %; HGB - HEMOGLOBIN 11.8 g/dL (12.0-16.0); LYMPHOCYTES # (AUTO) 1.8 10^3/uL (1.5-3.5); LYMPHOCYTES % (AUTO) 34.3 %; MEAN CORPUSCULAR HEMOGLOBIN 27.1 pg (27.0-31.0); MEAN CORPUSCULAR HGB CONC 31.1 g/dL (32.0-36.0); MEAN CORPUSCULAR VOLUME 86.9 fL (81.0-99.0); MEAN PLATELET VOLUME 9.8 fL (7.9-10.8); MONOCYTES # (AUTO) 0.8 10^3/uL (0.0-1.0); MONOCYTES % (AUTO) 14.3 %; NEUTROPHILS # (AUTO) 2.5 10^3/uL (1.5-6.6); NEUTROPHILS % (AUTO) 47.1 %; PLT - PLATELET COUNT 228 10^3/uL (130-450); RED BLOOD COUNT 4.36 10^6/uL (4.20-5.40); RED CELL DISTRIBUTION WIDTH 17.8 % (12.0-15.0); WHITE BLOOD COUNT 5.4 x10^3/uL (4.8-10.8)
[2019-05-21 11:16] LABS: ALBUMIN 4.1 g/dL (3.2-5.5); ALBUMIN/GLOBULIN RATIO 0.9 (1.0-2.2); BILIRUBIN,TOTAL 0.7 mg/dL (0.2-1.0); CALCIUM 9.5 mg/dL (8.5-10.3); CREATININE 0.9 mg/dL (0.4-1.0); TOTAL PROTEIN 8.6 g/dL (6.7-8.2)
== END 2019-05-21 10:27 | disposition home or self-care (01) ==
LOC: LAB 10:26
PROVIDERS: ATTEND Family Medicine
DX: K86.1 Other chronic pancreatitis (principal)
CPT/HCPCS: 36415; 80053; 83690; 85025

== ENCOUNTER 2019-06-12 09:22 | Outpatient (CLI) | payer MEDICAID ==
[2019-06-12 09:52] LABS: BASOPHILS % (AUTO) 0.4 %; EOSINOPHILS # (AUTO) 0.1 10^3/uL (0.0-0.7); HGB - HEMOGLOBIN 11.6 g/dL (12.0-16.0); LYMPHOCYTES # (AUTO) 2.2 10^3/uL (1.5-3.5); LYMPHOCYTES % (AUTO) 43.5 %; MEAN CORPUSCULAR HEMOGLOBIN 27.1 pg (27.0-31.0); MEAN CORPUSCULAR HGB CONC 32.1 g/dL (32.0-36.0); MEAN CORPUSCULAR VOLUME 84.3 fL (81.0-99.0); MEAN PLATELET VOLUME 8.6 fL (7.9-10.8); MONOCYTES # (AUTO) 0.6 10^3/uL (0.0-1.0); MONOCYTES % (AUTO) 12.1 %; NEUTROPHILS # (AUTO) 2.1 10^3/uL (1.5-6.6); NEUTROPHILS % (AUTO) 41.6 %; PLT - PLATELET COUNT 218 10^3/uL (130-450); RED BLOOD COUNT 4.28 10^6/uL (4.20-5.40); RED CELL DISTRIBUTION WIDTH 18.5 % (12.0-15.0)
[2019-06-12 10:10] LABS: ALBUMIN 4.5 g/dL (3.2-5.5); BILIRUBIN,TOTAL 0.9 mg/dL (0.2-1.0); CALCIUM 9.6 mg/dL (8.5-10.3); CREATININE 0.8 mg/dL (0.4-1.0); TOTAL PROTEIN 8.8 g/dL (6.7-8.2)
== END 2019-06-12 09:23 | disposition home or self-care (01) ==
LOC: LAB 09:22
PROVIDERS: ATTEND Family Medicine
DX: K86.1 Other chronic pancreatitis (principal)
CPT/HCPCS: 36415; 80053; 82150; 83690; 85025

== ENCOUNTER 2019-07-15 14:20 | Outpatient (CLI) | payer MEDICAID | END 2019-07-15 14:21 | disposition critical access hospital (66) | LOC: EMS 14:20 | PROVIDERS: ATTEND Surgery | DX: R26.2 Difficulty in walking, not elsewhere classified (principal); R10.9 Unspecified abdominal pain ==

== ENCOUNTER 2019-07-15 14:28 | Emergency (ER) | payer MEDICAID ==
[2019-07-15 14:37] VITALS: BP 114/82
[2019-07-15] MEDS ORDERED: MAG HYDROX/AL HYDROX/SIMETH 30 ML UDC PO STA (14:57)
[2019-07-15] MEDS ORDERED: LIDOCAINE VISCOUS 2% 15 ML UDC MM STA (14:57)
[2019-07-15] MEDS ORDERED: PANTOPRAZOLE 40 MG TABLET PO STA (14:57)
[2019-07-15] MEDS ORDERED: THIAMINE 100 MG TABLET PO STA (14:58)
--- NOTE | 2019-07-15 15:00 | ED Physician Documentation ---
History of Present Illness - Stated complaint Stated Complaint: ETOH - Chief complaint Chief Complaint: General - History obtained from History obtained from: Patient (59-year-old woman with history of esophageal varices and alcoholism presents by ambulance. Her chief complaint is right upper quadrant pain and needing pain medications for same. Per her daughter called the ambulance, she the daughter lives in [place]. Patient says the right upper quadrant pain is been going on for 2 weeks. It is not related to eating although she admits she is not eating much. She has been on a brady for the last 2 days, she blames her significant other Don for that but it is unclear on initial evaluation why.) Review of Systems Constitutional: denies: Fever, Chills GI: denies: Nausea, Vomiting, Hematemesis, Bloody / black stool PD PAST MEDICAL HISTORY - Past Medical History Cardiovascular: Coronary artery disease, GA, Murmur Respiratory: Shortness of breath Neuro: Headaches, Migraines, Tremors Endocrine/Autoimmune: None GI: GERD, Pancreatitis, Hepatitis, Cirrhosis, Cholelithiasis, Other OIL WELL ENGINEER: None : Nocturia HEENT: Chronic sinusitis Psych: Depression, Anxiety, ADD/ADHD, Post traumatic stress disorder Musculoskeletal: Osteoarthritis, Chronic back pain Derm: None - Past Surgical History Past Surgical History: Yes General: Other Ortho: Other /OIL WELL ENGINEER: Tubal ligation, Breast implants HEENT: Other - Present Medications Home Medications: Ambulatory Orders Medication Instructions Recorded Confirmed Lipase/Protease/Amylase [Bulmaro Rosario 1 each PO TIDWM #90 capsule. 07/13/18 02/12/19 24,000 Units Capsule] Multivitamin [Multiple Vitamins] 1 each PO DAILY #10 tablet 09/22/18 02/12/19 Spironolactone [Aldactone] 25 mg PO BID 12/06/18 02/12/19 Naloxone HCl [Narcan] 1 spray ALLI PRN PRN 02/12/19 02/12/19 Magnesium Oxide [Mag Ox] 400 mg PO BIDWM #60 tablet 02/14/19 Propranolol [Inderal] 10 mg PO BID #60 tablet 02/14/19 Thiamine [Vitamin B-1] 100 mg PO DAILY #30 tablet 02/14/19 oxyCODONE [Roxicodone] 5 mg PO Q4HR PRN #25 tablet 02/14/19 Furosemide [Lasix] 20 mg PO DAILY #14 tablet 03/03/19 Pantoprazole [Protonix] 40 mg PO BID #30 tablet 03/03/19 oxyCODONE [Roxicodone] 5 mg PO Q4-6H PRN #14 tablet 03/03/19 - Allergies Allergies/Adverse Reactions: Allergies Allergy/AdvReac Type Severity Reaction Status Date / Time ketorolac tromethamine * Allergy Severe Hives Verified 07/15/19 14:36 [From Toradol] - Social History Does the pt smoke?: Yes Smoking Status: Current every day smoker Does the pt drink ETOH?: No Does the pt have substance abuse?: No - Immunizations Immunizations are current?: No Immunizations: TDAP >10years/unknown - POLST Patient has POLST: No POLST Status: Full Code PD ED PE NORMAL - Vitals Vital signs reviewed: Yes - General General: Other (She is alert and oriented but obviously intoxicated, she is quite touchy and kind of grabbing at me and holding me. She says she loves me.) - HEENT HEENT: PERRL (With nystagmus, nonicteric) - Neck Neck: Supple, no meningeal sign, No bony TTP - Cardiac Cardiac: RRR, No murmur - Respiratory Respiratory: No respiratory distress, Clear bilaterally - Abdomen Abdomen: Soft, Non tender - Derm Derm: No rash - Neuro Neuro: No motor deficit, No sensory deficit Eye Opening: Spontaneous Motor: Obeys Commands Verbal: Oriented GCS Score: 15 Results - Vitals Vitals: Vital Signs - 24 hr 07/15/19 14:31 Temperature 36.6 C Heart Rate 68 Respiratory 20 Rate Blood Pressure 114/82 H O2 Saturation 99 Oxygen O2 Source Room air - Labs Labs: Laboratory Tests 07/15/19 07/15/19 07/15/19 15:10 15:10 15:10 WBC 5.8 RBC 3.84 L Hgb 9.4 L Hct 31.1 L MCV 81.0 MCH 24.5 L MCHC 30.2 L RDW 17.5 H Plt Count 248 MPV 8.8 Neut # (Auto) 3.0 Lymph # (Auto) 2.2 [place] # (Auto) 0.4 Eos # (Auto) 0.1 Baso # (Auto) 0.1 Absolute Nucleated RBC 0.00 Nucleated RBC % 0.0 PT 15.2 H INR 1.4 H Sodium 144 Potassium 3.7 Chloride 105 Carbon Dioxide 25 Anion Gap 14.0 H BUN 13 Creatinine 0.6 Estimated GFR (MDRD) 103 Glucose 100 Calcium 8.4 L Total Bilirubin 0.4 AST 35 ALT 23 Alkaline Phosphatase 73 Total Protein 8.0 Albumin 4.0 Globulin 4.0 Albumin/Globulin Ratio 1.0 Lipase 105 H Ethyl Alcohol 407.3 PD MEDICAL DECISION MAKING - ED course ED course: 59-year-old woman presents with alcohol intoxication, some right upper quadrant pain but no tenderness. Labs show significantly elevated alcohol greater than 400. Plan was to observe her and treat her pain with PPIs, of course we were avoiding Toradol given the allergy and history of GI bleeding and Tylenol given the tenuous liver status. She would require prolonged observation given the blood alcohol level but eventually ambulated out of the department in no distress. Departure - Departure Disposition: ED [facility] Clinical Impression: Alcohol intoxication Qualifiers: Complication of substance-induced condition: uncomplicated Qualified Code(s): F10.920 - Alcohol use, unspecified with intoxication, uncomplicated
[2019-07-15 15:27] LABS: BASOPHILS # (AUTO) 0.1 10^3/uL (0.0-0.1); BASOPHILS % (AUTO) 0.9 %; EOSINOPHILS # (AUTO) 0.1 10^3/uL (0.0-0.7); EOSINOPHILS % (AUTO) 2.4 %; HGB - HEMOGLOBIN 9.4 g/dL (12.0-16.0); LYMPHOCYTES # (AUTO) 2.2 10^3/uL (1.5-3.5); LYMPHOCYTES % (AUTO) 38.4 %; MEAN CORPUSCULAR HEMOGLOBIN 24.5 pg (27.0-31.0); MEAN CORPUSCULAR HGB CONC 30.2 g/dL (32.0-36.0); MEAN PLATELET VOLUME 8.8 fL (7.9-10.8); MONOCYTES # (AUTO) 0.4 10^3/uL (0.0-1.0); MONOCYTES % (AUTO) 6.4 %; NEUTROPHILS % (AUTO) 51.7 %; PLT - PLATELET COUNT 248 10^3/uL (130-450); RED BLOOD COUNT 3.84 10^6/uL (4.20-5.40); RED CELL DISTRIBUTION WIDTH 17.5 % (12.0-15.0); WHITE BLOOD COUNT 5.8 x10^3/uL (4.8-10.8)
[2019-07-15 15:33] LABS: BILIRUBIN,TOTAL 0.4 mg/dL (0.2-1.0); CALCIUM 8.4 mg/dL (8.5-10.3); CREATININE 0.6 mg/dL (0.4-1.0)
[2019-07-15 15:41] LABS: INR 1.4 (0.8-1.2); PT - PROTHROMBIN TIME 15.2 secs (9.9-12.6)
== END 2019-07-15 17:45 | disposition left against medical advice (07) ==
LOC: EDUNIT# → ED 14:28
DX: R10.11 Right upper quadrant pain (principal); F10.120 Alcohol abuse with intoxication, uncomplicated; F17.200 Nicotine dependence, unspecified, uncomplicated
CPT/HCPCS: 36415; 80053; 80320; 83690; 85025; 85610; 99283; A9270

== ENCOUNTER 2019-07-19 10:16 | Outpatient (CLI) | payer MEDICAID | END 2019-07-19 10:17 | disposition home or self-care (01) | LOC: LAB 10:16 | PROVIDERS: ATTEND Family Medicine | DX: Z53.9 Procedure and treatment not carried out, unspecified reason (principal) ==

== ENCOUNTER 2019-08-10 10:17 | Outpatient (CLI) | payer MEDICAID ==
[2019-08-10 13:05] LABS: THYROID STIMULATING HORMONE 3.46 uIU/mL (0.34-5.60)
[2019-08-10 13:07] LABS: FREE T4 (FREE THYROXINE) 0.77 ng/dL (0.58-1.64)
== END 2019-08-10 23:59 | disposition home or self-care (01) ==
LOC: LAB.N 10:17
PROVIDERS: ATTEND Family Medicine
DX: R22.1 Localized swelling, mass and lump, neck (principal)
CPT/HCPCS: 36415; 84439; 84443; 84481

== ENCOUNTER 2019-08-20 14:00 | Outpatient (CLI) | payer MEDICAID | END 2019-08-20 14:01 | disposition home or self-care (01) | LOC: LAB 14:00 | PROVIDERS: ATTEND Family Medicine | DX: D64.9 Anemia, unspecified (principal) | CPT/HCPCS: 36415; 80053; 82150; 82607; 83690; 85025 ==

== ENCOUNTER 2019-08-21 10:40 | Outpatient (CLI) | payer MEDICAID ==
[2019-08-21 18:43] LABS: BASOPHILS % (AUTO) 0.6 %
[2019-08-21 18:46] LABS: EOSINOPHILS # (AUTO) 0.1 10^3/uL (0.0-0.7); EOSINOPHILS % (AUTO) 1.8 %; HGB - HEMOGLOBIN 8.5 g/dL (12.0-16.0); LYMPHOCYTES # (AUTO) 1.3 10^3/uL (1.5-3.5); LYMPHOCYTES % (AUTO) 26.9 %; MEAN CORPUSCULAR HEMOGLOBIN 21.6 pg (27.0-31.0); MEAN CORPUSCULAR HGB CONC 28.8 g/dL (32.0-36.0); MEAN CORPUSCULAR VOLUME 75.1 fL (81.0-99.0); MEAN PLATELET VOLUME 9.4 fL (7.9-10.8); MONOCYTES # (AUTO) 0.6 10^3/uL (0.0-1.0); MONOCYTES % (AUTO) 11.3 %; NEUTROPHILS # (AUTO) 2.9 10^3/uL (1.5-6.6); PLT - PLATELET COUNT 247 10^3/uL (130-450); RED BLOOD COUNT 3.93 10^6/uL (4.20-5.40); RED CELL DISTRIBUTION WIDTH 19.9 % (12.0-15.0); WHITE BLOOD COUNT 4.9 x10^3/uL (4.8-10.8)
[2019-08-21 19:04] LABS: BILIRUBIN,TOTAL 0.7 mg/dL (0.2-1.0); CREATININE 0.8 mg/dL (0.4-1.0); TOTAL PROTEIN 8.1 g/dL (6.7-8.2)
== END 2019-08-21 23:59 | disposition home or self-care (01) ==
LOC: LAB.N 10:40
PROVIDERS: ATTEND Physician Assistant Medical
DX: K86.1 Other chronic pancreatitis (principal); K86.81 Exocrine pancreatic insufficiency; N18.2 Chronic kidney disease, stage 2 (mild)
CPT/HCPCS: 36415; 80053; 82150; 83690; 85025

== ENCOUNTER 2019-08-25 16:24 | Outpatient (CLI) | payer MEDICAID ==
--- NOTE | 2019-08-27 12:59 | Ultrasound Report ---
Reason: LOCALIZED SWELLING, MASS Procedure Date: 08/25/2019 Accession Number: [id number] / [id number] Procedure: US - Head or Neck Soft Tissue CPT Code: Final Report FULL RESULT: EXAM: THYROID ULTRASOUND EXAM DATE: 08/25/2019 05:23 PM. CLINICAL HISTORY: LOCALIZED SWELLING, MASS. COMPARISON: None. TECHNIQUE: Real time sonographic imaging of the thyroid was performed by the police detention attendant. Multiple herbicide service sales representative static images were saved for review. FINDINGS: THYROID GLAND: Right Lobe: 4.1 x 2 x 1.2 cm, volume 5.1 cc. Heterogeneous Right Lobe Nodules: None. Left Lobe: 3.9 x 1.3 x 1.1 cm, volume 2.9 cc. Ny's Left Lobe Nodules: None. Multiple small colloid cysts largest 3 mm Isthmus: 0.3 cm AP. Isthmic Nodules: None. LYMPH NODES: No adenopathy demonstrated in the central or lateral compartment. OTHER: No ultrasonographic findings in the palpable regions posterolateral neck left greater than right. IMPRESSION: 1. Small cysts left lobe. No further follow-up needed. 2. No ultrasonographic findings in the bilateral palpable region posterior lateral neck Management recommendations are based on 2015 [place] [employer] Management Guidelines for Adult Patients with Thyroid Nodules and Differentiated Thyroid Cancer. RADIA
== END 2019-08-25 16:25 | disposition home or self-care (01) ==
LOC: DI 16:24
PROVIDERS: ATTEND Family Medicine
DX: E04.2 Nontoxic multinodular goiter (principal)
CPT/HCPCS: 76536

== ENCOUNTER 2019-10-09 11:58 | Outpatient (CLI) | payer MEDICAID ==
[2019-10-09 12:13] LABS: BASOPHILS % (AUTO) 0.6 %; EOSINOPHILS # (AUTO) 0.1 10^3/uL (0.0-0.7); EOSINOPHILS % (AUTO) 2.2 %; LYMPHOCYTES # (AUTO) 1.3 10^3/uL (1.5-3.5); LYMPHOCYTES % (AUTO) 26.7 %; MEAN CORPUSCULAR HEMOGLOBIN 17.4 pg (27.0-31.0); MEAN CORPUSCULAR HGB CONC 26.3 g/dL (32.0-36.0); MEAN CORPUSCULAR VOLUME 66.2 fL (81.0-99.0); MEAN PLATELET VOLUME 9.5 fL (7.9-10.8); MONOCYTES # (AUTO) 0.7 10^3/uL (0.0-1.0); MONOCYTES % (AUTO) 14.3 %; NEUTROPHILS # (AUTO) 2.8 10^3/uL (1.5-6.6); PLT - PLATELET COUNT 244 10^3/uL (130-450); RED BLOOD COUNT 3.67 10^6/uL (4.20-5.40); RED CELL DISTRIBUTION WIDTH 22.5 % (12.0-15.0); WHITE BLOOD COUNT 4.9 x10^3/uL (4.8-10.8)
[2019-10-09 12:23] LABS: INR 1.3 (0.8-1.2); PT - PROTHROMBIN TIME 14.9 secs (9.9-12.6)
[2019-10-09 12:26] LABS: ALBUMIN 4.2 g/dL (3.2-5.5); BILIRUBIN,TOTAL 0.8 mg/dL (0.2-1.0); CREATININE 0.8 mg/dL (0.4-1.0); TOTAL PROTEIN 8.3 g/dL (6.7-8.2)
[2019-10-09 12:30] LABS: PARTIAL THROMBOPLASTIN TIME 32.1 secs (24.9-33.3)
[2019-10-09 13:08] LABS: HGB - HEMOGLOBIN 6.4 g/dL (12.0-16.0)
[2019-10-09 13:09] LABS: PLATELET ESTIMATE, MANUAL NORMAL (130-450,000) (NORMAL); PLATELET MORPHOLOGY 1+ LARGE PLATELETS (NORMAL)
== END 2019-10-09 11:59 | disposition home or self-care (01) ==
LOC: LAB 11:58
PROVIDERS: ATTEND Family Medicine
DX: K70.31 Alcoholic cirrhosis of liver with ascites (principal); K86.81 Exocrine pancreatic insufficiency; K86.1 Other chronic pancreatitis; N18.2 Chronic kidney disease, stage 2 (mild)
CPT/HCPCS: 36415; 80053; 82150; 83690; 85025; 85610; 85730

== ENCOUNTER 2019-10-10 07:16 | Emergency (ER) | payer MEDICAID ==
[2019-10-10] MEDS ORDERED: HYDROmorphone 1 MG/ML CARPUJECT IVP STA ×2 (07:51→10:59)
[2019-10-10] MEDS ORDERED: IOVERSOL 320 100 ML VIAL IVP ONE ×2 (07:57→08:42)
[2019-10-10 08:00] LABS: BASOPHILS % (AUTO) 0.8 %; EOSINOPHILS # (AUTO) 0.1 10^3/uL (0.0-0.7); EOSINOPHILS % (AUTO) 2.3 %; LYMPHOCYTES # (AUTO) 1.3 10^3/uL (1.5-3.5); LYMPHOCYTES % (AUTO) 27.4 %; MEAN CORPUSCULAR HEMOGLOBIN 18.1 pg (27.0-31.0); MEAN CORPUSCULAR HGB CONC 27.6 g/dL (32.0-36.0); MEAN CORPUSCULAR VOLUME 65.5 fL (81.0-99.0); MONOCYTES # (AUTO) 0.7 10^3/uL (0.0-1.0); MONOCYTES % (AUTO) 13.4 %; NEUTROPHILS # (AUTO) 2.7 10^3/uL (1.5-6.6); NEUTROPHILS % (AUTO) 55.7 %; PLT - PLATELET COUNT 256 10^3/uL (130-450); RED BLOOD COUNT 3.71 10^6/uL (4.20-5.40); RED CELL DISTRIBUTION WIDTH 22.5 % (12.0-15.0); WHITE BLOOD COUNT 4.9 x10^3/uL (4.8-10.8)
[2019-10-10 08:02] LABS: ABSOLUTE RETICS # AUTO 0.078 10^6/uL (0.020-0.110); RED BLOOD COUNT 3.69 10^6/uL (4.20-5.40)
[2019-10-10 08:03] LABS: HGB - HEMOGLOBIN 6.7 g/dL (12.0-16.0)
[2019-10-10 08:08] LABS: ALBUMIN 4.2 g/dL (3.2-5.5); BILIRUBIN,TOTAL 0.6 mg/dL (0.2-1.0); CALCIUM 9.2 mg/dL (8.5-10.3); CREATININE 0.7 mg/dL (0.4-1.0); TOTAL PROTEIN 8.6 g/dL (6.7-8.2)
[2019-10-10 08:24] LABS: % IRON SATURATION 3 % (20-50); IRON 22 ug/dL (28-170); TOTAL IRON BINDING CAPACITY 837 ug/dL (250-450); TRANSFERRIN 598 mg/dL (192-382)
[2019-10-10 08:32] LABS: FERRITIN 12.8 ng/mL (11.0-306.8)
--- NOTE | 2019-10-10 08:44 | CT Report ---
Reason: fell and struck RUQ/ pain locally and drop Hgb Procedure Date: 10/10/2019 Accession Number: [id number] / [id number] Procedure: CT - Abdomen/Pelvis W CPT Code: Final Report FULL RESULT: EXAM: CT ABDOMEN AND PELVIS EXAM DATE: 10/10/2019 08:32 AM. CLINICAL HISTORY: Right upper quadrant pain. Anemia. COMPARISONS: ABDOMEN/PELVIS W/ 02/11/2019 6:17 PM. TECHNIQUE: Routine helical CT imaging was performed through the abdomen and pelvis. IV contrast: 100 mL Optiray 320. Enteric contrast: No. Reconstructions: Coronal and sagittal. In accordance with CT protocol optimization, one or more of the following dose reduction techniques were utilized for this exam: automated exposure control, adjustment of mA and/or KV based on patient size, or use of iterative reconstructive technique. FINDINGS: Lung Bases: Unremarkable. Liver: Cirrhotic liver with no masses is demonstrated. Recanalized periumbilical vein is seen. Mild paraesophageal varices are present. Gallbladder/Bile Ducts: Unremarkable. Spleen: Normal. No splenomegaly. Pancreas: Normal. Adrenal Glands: Normal. Kidneys: 3 mm nonobstructing stone in the mid left kidney is seen. There is no hydronephrosis. Peritoneal Cavity/Bowel: Large-volume ascites is present. No free air or loculated fluid collections are demonstrated. The bowel loops demonstrate no obstruction or ileus. The appendix is well visualized and normal. Pelvic Organs: Normal. The bladder and visualized pelvic organs are within normal limits. Vasculature: No aneurysms or other significant abnormality. Bones: Minor compression deformity at L2 is seen, stable. No acute osseous abnormality is demonstrated. Other: None. IMPRESSION: 1. Cirrhosis and large-volume ascites. Recanalized periumbilical vein and mild paraesophageal varices consistent with portal hypertension are also seen. 2. No acute intra-abdominal abnormality demonstrated otherwise. 3. Left-sided nephrolithiasis without hydronephrosis. 4. Stable minor chronic L2 compression fracture. RADIA
--- NOTE | 2019-10-10 10:03 | CT Report ---
Reason: headache, fall Procedure Date: 10/10/2019 Accession Number: [id number] / [id number] Procedure: CT - HEAD WO CPT Code: Final Report FULL RESULT: EXAM: CT HEAD EXAM DATE: 10/10/2019 09:50 AM. CLINICAL HISTORY: Headache, fall. COMPARISON: HEAD W/O 04/26/2019 7:54 PM. TECHNIQUE: Multiaxial CT images were obtained from the foramen magnum to the vertex. Reformats: Sagittal and coronal. IV contrast: None. In accordance with CT protocol optimization, one or more of the following dose reduction techniques were utilized for this exam: automated exposure control, adjustment of mA and/or KV based on patient size, or use of iterative reconstructive technique. FINDINGS: Parenchyma: No intraparenchymal hemorrhage. No evidence of mass, midline shift, or CT findings of infarction. Mcbride-white differentiation is distinct. Extraaxial Spaces: There is enhancement of venous structures. No subdural or epidural collections identified. Ventricles: Normal in size and position. Sinuses and Orbits: Imaged paranasal sinuses, orbits, and mastoids show no significant abnormality. Bones: No evidence of fracture or calvarial defect. Other: None. IMPRESSION: 1. Persistent venous contrast from earlier abdomen / pelvis CT. 2. Otherwise unremarkable head CT. RADIA
[2019-10-10 13:13] LABS: HGB - HEMOGLOBIN 7.6 g/dL (12.0-16.0)
--- NOTE | 2019-10-10 13:15 | ED Physician Documentation ---
History of Present Illness - Stated complaint Stated Complaint: ABNORMAL LABS - Chief complaint Chief Complaint: General - History obtained from History obtained from: Patient - History of Present Illness Timing: How many weeks ago (has had general weakness and dyspnea with exertion for 1-2 weeks, with history of ascites/cirrhosis, renal insufficiency, and anemia. No known CHF. She did fall and struck right anterolateral ribs and upper abd couple weeks ago and still hurting that area. Seen by PMD for regular appt yesterday and had blood tests routinely. Found to have Hgb 6.4, so referred to ER for evaluation.) Review of Systems Constitutional: reports: Fatigue. denies: Fever, Chills, Myalgias Eyes: denies: Decreased vision Nose: denies: Rhinorrhea / runny nose, Congestion, Epistaxis Throat: denies: Sore throat Cardiac: reports: Pedal edema (better than baseline recently, with ongoing diuretic use as Rx.). denies: Chest pain / pressure, Palpitations, Calf pain Respiratory: reports: Dyspnea. denies: Cough GI: reports: Abdominal Pain, Abdominal Swelling (moderate), Nausea. 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 07/13/18 24,000 Units Capsule] Multivitamin [Multiple Vitamins] 1 each PO DAILY #10 tablet 09/22/18 02/12/19 Spironolactone [Aldactone] 25 mg PO BID 12/06/18 02/12/19 Naloxone HCl [Narcan] 1 spray ALLI PRN PRN 02/12/19 02/12/19 Magnesium Oxide [Mag Ox] 400 mg PO BIDWM #60 tablet 02/14/19 Propranolol [Inderal] 10 mg PO BID #60 tablet 02/14/19 Thiamine [Vitamin B-1] 100 mg PO DAILY #30 tablet 02/14/19 oxyCODONE [Roxicodone] 5 mg PO Q4HR PRN #25 tablet 02/14/19 Furosemide [Lasix] 20 mg PO DAILY #14 tablet 03/03/19 Pantoprazole [Protonix] 40 mg PO BID #30 tablet 03/03/19 oxyCODONE [Roxicodone] 5 mg PO Q4-6H PRN #14 tablet 03/03/19 Ferrous Sulfate 325 mg PO DAILY #30 tablet 10/10/19 - Allergies Allergies/Adverse Reactions: Allergies Allergy/AdvReac Type Severity Reaction Status Date / Time ketorolac tromethamine * Allergy Severe Hives Verified 07/15/19 14:36 [From Toradol] - Social History Does the pt smoke?: Yes Smoking Status: Current every day smoker Does the pt drink ETOH?: No Does the pt have substance abuse?: No - Immunizations Immunizations are current?: No Immunizations: TDAP >10years/unknown - POLST Patient has POLST: No POLST Status: Full Code PD ED PE NORMAL - Vitals Vital signs reviewed: Yes - General General: Alert and oriented X 3, No acute distress, Well developed/nourished - HEENT HEENT: PERRL, Moist mucous membranes, Pharynx benign - Neck Neck: Supple, no meningeal sign, No adenopathy - Cardiac Cardiac: RRR, No murmur - Respiratory Respiratory: Clear bilaterally - Abdomen Abdomen: Normal bowel sounds, Soft, No organomegaly, Other (dullness to percussion, with some ascitic distension. Not tender nor tense generally. Has local tendernes RUQ and right lower ribs/cartilage anterolateral area. No noted deformity nor creiptance. ) - Female Female : Deferred - Rectal Rectal: Deferred - Back Back: No CVA TTP - Derm Derm: Normal color, Warm and dry - Extremities Extremities: No deformity, No tenderness to palpate, No calf tenderness / cord, Other (1+ edema in both legs and ankles. ) - Neuro Neuro: Alert and oriented X 3, No motor deficit, No sensory deficit, Normal speech Eye Opening: Spontaneous Motor: Obeys Commands Verbal: Oriented GCS Score: 15 Results - Vitals Vitals: Vital Signs - 24 hr 10/10/19 10/10/19 10/10/19 07:26 08:40 10:11 Temperature 36.6 C 36.8 C Heart Rate 89 78 78 Respiratory 16 17 15 Rate Blood Pressure 116/63 129/77 114/71 O2 Saturation 100 95 10/10/19 10/10/19 10/10/19 10:24 10:26 10:55 Temperature 36.9 C 37.0 C Heart Rate 73 74 74 Respiratory 15 16 17 Rate Blood Pressure 119/72 110/56 L 120/70 O2 Saturation 98 10/10/19 10/10/19 10/10/19 11:59 12:06 13:57 Temperature 37.1 C 37.0 C Heart Rate 68 75 72 Respiratory 14 18 16 Rate Blood Pressure 118/49 L 110/78 117/71 O2 Saturation 99 97 Oxygen O2 Source Room air - Labs Labs: Laboratory Tests 10/10/19 10/10/19 10/10/19 07:37 07:37 07:37 WBC 4.9 RBC 3.71 L 3.69 L Hgb 6.7 L* Hct 24.3 L MCV 65.5 L MCH 18.1 L MCHC 27.6 L RDW 22.5 H Plt Count 256 MPV 9.0 Reticulocyte % (Auto) 2.10 Neut # (Auto) 2.7 Lymph # (Auto) 1.3 L [place] # (Auto) 0.7 Eos # (Auto) 0.1 Baso # (Auto) 0.0 Absolute Nucleated RBC 0.00 Nucleated RBC % 0.0 Absolute Retic 0.078 Sodium Potassium Chloride Carbon Dioxide Anion Gap BUN Creatinine Estimated GFR (MDRD) Glucose Calcium Iron 22 L TIBC 837 H % Saturation 3 L Transferrin 598 H Ferritin Total Bilirubin AST ALT Alkaline Phosphatase Total Protein Albumin Globulin Albumin/Globulin Ratio Lipase Vitamin B12 Folate Blood Type Antibody Screen Crossmatch IS Only 10/10/19 10/10/19 10/10/19 07:37 07:37 08:16 WBC RBC Hgb Hct MCV MCH MCHC RDW Plt Count MPV Reticulocyte % (Auto) Neut # (Auto) Lymph # (Auto) [place] # (Auto) Eos # (Auto) Baso # (Auto) Absolute Nucleated RBC Nucleated RBC % Absolute Retic Sodium 134 L Potassium 3.2 L Chloride 94 L Carbon Dioxide 28 Anion Gap 12.0 BUN 21 H Creatinine 0.7 Estimated GFR (MDRD) 86 L Glucose 105 H Calcium 9.2 Iron TIBC % Saturation Transferrin Ferritin 12.8 Total Bilirubin 0.6 AST 29 ALT 17 Alkaline Phosphatase 85 Total Protein 8.6 H Albumin 4.2 Globulin 4.4 H Albumin/Globulin Ratio 1.0 Lipase 94 H Vitamin B12 584 Folate 41.00 Blood Type A POSITIVE Antibody Screen NEGATIVE Crossmatch IS Only See Detail 10/10/19 12:43 WBC RBC Hgb 7.6 L Hct 26.3 L MCV MCH MCHC RDW Plt Count MPV Reticulocyte % (Auto) Neut # (Auto) Lymph # (Auto) [place] # (Auto) Eos # (Auto) Baso # (Auto) Absolute Nucleated RBC Nucleated RBC % Absolute Retic Sodium Potassium Chloride Carbon Dioxide Anion Gap BUN Creatinine Estimated GFR (MDRD) Glucose Calcium Iron TIBC % Saturation Transferrin Ferritin Total Bilirubin AST ALT Alkaline Phosphatase Total Protein Albumin Globulin Albumin/Globulin Ratio Lipase Vitamin B12 Folate Blood Type Antibody Screen Crossmatch IS Only - Rads (name of study) abd CT Radiology: Prelim report reviewed (no bleeding noted. Has chronic ascites.), See rad report head CT Radiology: Prelim report reviewed (no ICH), See rad report PD MEDICAL DECISION MAKING - ED course Complexity details: reviewed results (low iron and is most likely cause of the progressive anemia. ), considered differential (Consider blood loss, but no reports of melena, bloody stool, nosebleeds. Had recent fall with tenderness/pain in RUQ/lower chest area, so could have bled into those areas. Can get CT to evaluate. Also consider poor production with low iron, folate, or B12. Could have marrow dysfunction with anemia of chronic disease as well. ), d/w patient ED course: prior trend of CBC was decreasing Hgb, from 11 to 9 to 8 now to 6.4 over the past 3-4 months. No acute distress. General weakness with fatigue. Is below 7 hgb so can trasfuse a unit to get he above that level and start some iron supplements. Was not acute symptoms enough for hospitalization. Did transfusion in ER. Departure - Departure Disposition: 01 Home, Self Care Clinical Impression: Weakness, Dyspnea on effort Anemia Qualifiers: Anemia type: iron deficiency Iron deficiency anemia type: unspecified iron deficiency Qualified Code(s): D50.9 - Iron deficiency anemia, unspecified Liver cirrhosis, alcoholic Qualifiers: Ascites presence: with ascites Qualified Code(s): K70.31 - Alcoholic cirrhosis of liver with ascites Clinical Impression: (Ruled Out): GI bleeding Condition: Stable Record reviewed to determine appropriate education?: Yes Instructions: ED Anemia Iron Deficiency Follow-Up: BRYAN TOBIAS MD [Primary Care Provider] - Prescriptions: Ferrous Sulfate 325 mg PO DAILY #30 tablet Comments: Continue usual medications. Add iron supplement daily. Follow-up with your primary care Tuesday as planned. They will likely want to recheck your blood count and couple of weeks to see if the iron supplement is improving your blood count. Your CT scan states abnormal pancreas without any cysts at this time. Discharge Date/Time: 10/10/19 14:04
[2019-10-10 13:58] VITALS: BP 117/71
== END 2019-10-10 14:04 | disposition home or self-care (01) ==
LOC: ED 07:16
DX: D50.9 Iron deficiency anemia, unspecified (principal); R53.1 Weakness; R06.00 Dyspnea, unspecified; R51 Headache; K70.31 Alcoholic cirrhosis of liver with ascites; F17.200 Nicotine dependence, unspecified, uncomplicated
CPT/HCPCS: 36415; 36430; 70450; 74177; 80053; 82607; 82728; 82746; 83540; 83690; 84466; 85014; 85018; 85025; 85045; 86850; 86900; 86901; 86920; 96374; 96376; 99284; 99285; J1170; P9016; Q9967

== ENCOUNTER 2019-10-17 11:55 | Outpatient (CLI) | payer MEDICAID ==
[~2019-10-17 11:55] MED LIST changes: +BUFFERED LIDOCAINE 10 ML SYRINGE ONE; -IOVERSOL 320 100 ML VIAL IVP ONE
--- NOTE | 2019-10-17 17:01 | Ultrasound Report ---
Reason: CHRONIC PANCREATITIS, ALCOHOLIC CIRRHOSIS OF LIVER, ASCITES Procedure Date: 10/17/2019 Accession Number: [id number] / [id number] Procedure: US - Abdomen Limited CPT Code: Final Report FULL RESULT: EXAM: ABDOMEN ULTRASOUND LIMITED, RUQ EXAM DATE: 10/17/2019 01:15 PM. CLINICAL HISTORY: CHRONIC PANCREATITIS, ALCOHOLIC CIRRHOSIS OF LIVER, ASCITES. Assess fluid prior to paracentesis. COMPARISON: ABDOMINAL PARACENTESIS 12/12/2018 12:36 PM ABDOMEN/PELVIS / 10/10/2019 8:26 AM. TECHNIQUE: Real-time scanning was performed with static images obtained. FINDINGS: A small amount of ascites is present of insufficient quantity to safely perform a paracentesis. The liver has a cirrhotic appearance. IMPRESSION: Paracentesis not performed due to insufficient fluid. RADIA
== END 2019-10-17 11:56 | disposition home or self-care (01) ==
LOC: LAB 11:55 → DI 11:56
PROVIDERS: ATTEND Family Medicine
DX: K86.1 Other chronic pancreatitis (principal); K70.31 Alcoholic cirrhosis of liver with ascites
CPT/HCPCS: 76705

== ENCOUNTER 2019-11-28 15:22 | Emergency (ER) | payer MEDICAID ==
[2019-11-28 15:54] LABS: BASOPHILS # (AUTO) 0.1 10^3/uL (0.0-0.1); BASOPHILS % (AUTO) 0.9 %; EOSINOPHILS % (AUTO) 0.2 %; LYMPHOCYTES # (AUTO) 1.8 10^3/uL (1.5-3.5); LYMPHOCYTES % (AUTO) 16.1 %; MEAN CORPUSCULAR HEMOGLOBIN 21.1 pg (27.0-31.0); MEAN CORPUSCULAR VOLUME 72.9 fL (81.0-99.0); MEAN PLATELET VOLUME 7.9 fL (7.9-10.8); MONOCYTES # (AUTO) 0.8 10^3/uL (0.0-1.0); MONOCYTES % (AUTO) 7.2 %; NEUTROPHILS # (AUTO) 8.4 10^3/uL (1.5-6.6); NEUTROPHILS % (AUTO) 75.1 %; PLT - PLATELET COUNT 296 10^3/uL (130-450); RED BLOOD COUNT 4.73 10^6/uL (4.20-5.40); RED CELL DISTRIBUTION WIDTH 25.4 % (12.0-15.0); WHITE BLOOD COUNT 11.1 x10^3/uL (4.8-10.8)
[2019-11-28 15:56] VITALS: BP 132/67
[2019-11-28] MEDS ORDERED: FOLIC ACID INJ 1 MG, THIAMINE INJ 100 MG, MAGNESIUM SULFATE 2 GM, MULTIVITAMIN 10 ML in... IV STA ×5 (15:59)
[2019-11-28] MEDS ORDERED: HYDROmorphone 1 MG/ML CARPUJECT IVP STA ×2 (16:00→17:33)
[2019-11-28] MEDS ORDERED: ONDANSETRON 4 MG/2 ML VIAL IVP STA ×2 (16:00→17:33)
--- NOTE | 2019-11-28 16:03 | ED Physician Documentation ---
PD HPI ABD PAIN - Stated complaint Stated Complaint: ABD Px - Chief complaint Chief Complaint: Abd Pain - History obtained from History obtained from: Patient, Family - History of Present Illness Timing - onset: How many days ago (2) Timing - duration: Days (2) Timing - details: Gradual onset, Still present Quality: Cramping, Sharp, Pain Location: All over / everywhere Improved by: Laying still Worsened by: Eating, Moving, Breathing, Position, Palpation Associated symptoms: Nausea, Diarrhea, Loss of appetite. No: Vomiting Similar symptoms before: Diagnosis (pancreatitis.) Recently seen: Not recently seen - Additional information Additional information: 59-year-old alcoholic female with a history of recurrent alcoholic pancreatitis had wine over the weekend 3 bottles and she is developed pain nausea and diarrhea. She has not had any vomiting with this she has typical epigastric pain similar to what she is had previously with pancreatitis. She has more swelling of her ascites than usual as well. She has had this happen to her previously when she has started drinking again. She blames the drinking on her roommate who apparently brings the wind to her and leaves. She exhibits anger toward him for doing this. She does not seem to blame herself. Review of Systems Constitutional: denies: Fever Eyes: denies: Decreased vision Ears: denies: Ear pain Nose: denies: Rhinorrhea / runny nose, Congestion Throat: denies: Sore throat Cardiac: denies: Chest pain / pressure, Palpitations Respiratory: reports: Dyspnea, Cough GI: reports: Abdominal Pain, Nausea, Diarrhea. denies: Vomiting : denies: Dysuria, Frequency Skin: denies: Rash Musculoskeletal: denies: Neck pain, Back pain Neurologic: reports: Generalized weakness. 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 07/13/18 02/12/19 24,000 Units Capsule] Multivitamin [Multiple Vitamins] 1 each PO DAILY #10 tablet 09/22/18 02/12/19 Spironolactone [Aldactone] 25 mg PO BID 12/06/18 02/12/19 Naloxone HCl [Narcan] 1 spray ALLI PRN PRN 02/12/19 02/12/19 Magnesium Oxide [Mag Ox] 400 mg PO BIDWM #60 tablet 02/14/19 Propranolol [Inderal] 10 mg PO BID #60 tablet 02/14/19 Thiamine [Vitamin B-1] 100 mg PO DAILY #30 tablet 02/14/19 oxyCODONE [Roxicodone] 5 mg PO Q4HR PRN #25 tablet 02/14/19 Furosemide [Lasix] 20 mg PO DAILY #14 tablet 03/03/19 Pantoprazole [Protonix] 40 mg PO BID #30 tablet 03/03/19 oxyCODONE [Roxicodone] 5 mg PO Q4-6H PRN #14 tablet 03/03/19 Ferrous Sulfate 325 mg PO DAILY #30 tablet 10/10/19 - Allergies Allergies/Adverse Reactions: Allergies Allergy/AdvReac Type Severity Reaction Status Date / Time ketorolac tromethamine * Allergy Severe Hives Verified 11/28/19 15:24 [From Toradol] - Social History Does the pt smoke?: Yes Smoking Status: Current every day smoker Does the pt drink ETOH?: No Does the pt have substance abuse?: No - Immunizations Immunizations are current?: No Immunizations: TDAP >10years/unknown - POLST Patient has POLST: No POLST Status: Full Code PD ED PE NORMAL - Vitals Vital signs reviewed: Yes (hypertensive ) - General General: Alert and oriented X 3, Well developed/nourished, Other (appears anxious and in pain ) - HEENT HEENT: Atraumatic, PERRL, EOMI, Ears normal, Other (dry mucous membranes ) - Neck Neck: Supple, no meningeal sign - Cardiac Cardiac: Other (tachy to 100 with 2/6 holosystolic murmer at LSB) - Respiratory Respiratory: No respiratory distress, Clear bilaterally - Abdomen Abdomen: Other (distended with fluid wave not tense ascites but firm. Generally tender and with epigastric tenderness.) - Derm Derm: Normal color, Warm and dry, No rash - Extremities Extremities: No deformity, No edema, No calf tenderness / cord - Neuro Neuro: digital strategy manager 2-12 intact, No motor deficit, No sensory deficit, Normal speech Eye Opening: Spontaneous Motor: Obeys Commands Verbal: Oriented GCS Score: 15 - Psych Psych: Other (mood is anxious and the affect is blunted. ) Results - Vitals Vitals: Vital Signs - 24 hr 11/28/19 11/28/19 15:24 15:51 Temperature 36.5 C Heart Rate 100 64 Respiratory 16 14 Rate Blood Pressure 137/97 H 132/67 H O2 Saturation 99 98 Oxygen O2 Source Room air - Labs Labs: Laboratory Tests 11/28/19 11/28/19 11/28/19 15:46 15:46 15:46 WBC 11.1 H RBC 4.73 Hgb 10.0 L Hct 34.5 L MCV 72.9 L MCH 21.1 L MCHC 29.0 L RDW 25.4 H Plt Count 296 MPV 7.9 Neut # (Auto) 8.4 H Lymph # (Auto) 1.8 [place] # (Auto) 0.8 Eos # (Auto) 0.0 Baso # (Auto) 0.1 Absolute Nucleated RBC 0.00 Nucleated RBC % 0.0 Sodium 132 L Potassium 3.5 Chloride 94 L Carbon Dioxide 18 L Anion Gap 20.0 H BUN 8 Creatinine 0.5 Estimated GFR (MDRD) 127 Glucose 128 H Calcium 8.7 Total Bilirubin 0.5 AST 51 H ALT 20 Alkaline Phosphatase 153 H Ammonia Total Protein 8.3 H Albumin 4.1 Globulin 4.2 Albumin/Globulin Ratio 1.0 Amylase 90 Lipase 42 Urine Color Urine Clarity Urine pH Ur Specific [place] Urine Protein Urine Glucose (UA) Urine Ketones Urine Occult Blood Urine Nitrite Urine Bilirubin Urine Urobilinogen Ur Leukocyte Esterase Urine RBC Urine WBC Ur Squamous Epith Cells Urine Bacteria Ur Microscopic Review Urine Culture Comments Ethyl Alcohol 368.4 11/28/19 11/28/19 16:14 19:17 WBC RBC Hgb Hct MCV MCH MCHC RDW Plt Count MPV Neut # (Auto) Lymph # (Auto) [place] # (Auto) Eos # (Auto) Baso # (Auto) Absolute Nucleated RBC Nucleated RBC % Sodium Potassium Chloride Carbon Dioxide Anion Gap BUN Creatinine Estimated GFR (MDRD) Glucose Calcium Total Bilirubin AST ALT Alkaline Phosphatase Ammonia 27.3 Total Protein Albumin Globulin Albumin/Globulin Ratio Amylase Lipase Urine Color YELLOW Urine Clarity CLEAR Urine pH 6.0 Ur Specific [place] 1.020 Urine Protein NEGATIVE Urine Glucose (UA) NEGATIVE Urine Ketones NEGATIVE Urine Occult Blood NEGATIVE Urine Nitrite NEGATIVE Urine Bilirubin NEGATIVE Urine Urobilinogen 0.2 (NORMAL) Ur Leukocyte Esterase TRACE H Urine RBC None Seen Urine WBC 0-3 Ur Squamous Epith Cells MOD Squamous H Urine Bacteria None Seen Ur Microscopic Review INDICATED Urine Culture Comments NOT INDICATED Ethyl Alcohol - Rads (name of study) chest Radiology: Prelim report reviewed (Impression: Normal single view chest.), EMP read indepedently, See rad report Procedures - IVC sono (time) 1555 Bedside IVC sono: IVC measures (cm) (1.09), IVC collapsed c insp (cm) (complete), Dehydration (est 1+ liter deficit) PD MEDICAL DECISION MAKING - ED course Complexity details: reviewed old records, reviewed results, re-evaluated patient, considered differential, d/w patient, d/w family ED course: 59-year-old female with a history of chronic alcoholic pancreatitis has been drinking again she has developed symptoms she has nausea abdominal pain diarrhea and volume contraction. She is administered a banana bag IV Dilaudid and Zofran we are checking her lipase. She has a cough and a chest is negative. She has some improvement but is emotional and her blood alcohol is 368. She keeps blaming her partner for bringing her wine. Her lipase and amylase are negative. She is administered IV protonix and carafate and we will hydrate her with a banana bag and discharge. She is inquiring about tapping and her abdomen today is soft and this is not indicated as emergent. Departure - Departure Disposition: 01 Home, Self Care Clinical Impression: Alcoholism /alcohol abuse Alcohol intoxication Qualifiers: Complication of substance-induced condition: with unspecified complication Qualified Code(s): F10.929 - Alcohol use, unspecified with intoxication, unspecified Liver cirrhosis, alcoholic Qualifiers: Ascites presence: with ascites Qualified Code(s): K70.31 - Alcoholic cirrhosis of liver with ascites Abdominal pain Qualifiers: Abdominal location: epigastric Qualified Code(s): R10.13 - Epigastric pain Instructions: ED Alcohol Intoxication, ED Alcohol Abuse Follow-Up: BRYAN TOBIAS MD [Primary Care Provider] -
[2019-11-28 16:07] LABS: ALBUMIN 4.1 g/dL (3.2-5.5); BILIRUBIN,TOTAL 0.5 mg/dL (0.2-1.0); CALCIUM 8.7 mg/dL (8.5-10.3); CREATININE 0.5 mg/dL (0.4-1.0); TOTAL PROTEIN 8.3 g/dL (6.7-8.2)
--- NOTE | 2019-11-28 16:33 | XRAY Report ---
Reason: chest pain Procedure Date: 11/28/2019 Accession Number: [id number] / [id number] Procedure: XR - Chest 1 View X-Ray CPT Code: 19421 Final Report FULL RESULT: EXAM: CHEST RADIOGRAPHY EXAM DATE: 11/28/2019 04:21 PM. CLINICAL HISTORY: Chest pain. COMPARISON: CHEST 1 VIEW 02/11/2019 6:03 PM. TECHNIQUE: 1 portable view. FINDINGS: Lungs/Pleura: No focal opacities evident. No pleural effusion. No pneumothorax. Mediastinum: Within exam limitations, the cardiomediastinal contour is normal. Other: None. IMPRESSION: Normal single view chest. RADIA
[2019-11-28] MEDS ORDERED: SUCRALFATE 1 GM/10 ML UDC PO STA (16:43)
[2019-11-28] MEDS ORDERED: PANTOPRAZOLE 40 MG VIAL IVP STA (16:43)
[2019-11-28 19:25] LABS: BILIRUBIN,URINE NEGATIVE (NEGATIVE); CLARITY,URINE CLEAR (CLEAR); GLUCOSE, URINE (UA) NEGATIVE (NEGATIVE); KETONES,URINE (UA) NEGATIVE (NEGATIVE); LEUKOCYTE ESTERASE, URINE TRACE (NEGATIVE); NITRITE,URINE NEGATIVE (NEGATIVE); OCCULT BLOOD,URINE NEGATIVE (NEGATIVE); PROTEIN,URINE NEGATIVE (NEGATIVE); UROBILINOGEN,URINE 0.2 (NORMAL) E.U./dL (NORMAL)
[2019-11-28 19:34] LABS: BACTERIA,URINE None Seen /HPF (None Seen); RBC,URINE None Seen /HPF (0-5); SQUAMOUS EPITHELIAL CELL,UR MOD Squamous (<= Few)
== END 2019-11-28 19:57 | disposition home or self-care (01) ==
LOC: ED 15:22
DX: F10.229 Alcohol dependence with intoxication, unspecified (principal); E86.0 Dehydration; R10.13 Epigastric pain; K70.31 Alcoholic cirrhosis of liver with ascites; K86.0 Alcohol-induced chronic pancreatitis; F17.210 Nicotine dependence, cigarettes, uncomplicated
CPT/HCPCS: 36415; 71045; 80053; 80320; 81001; 82140; 82150; 83690; 85025; 96365; 96366; 96375; 96376; 99284; 99285; A9270; J1170; J3411; 81003; 87086

== ENCOUNTER 2019-11-30 18:11 | Emergency (ER) | payer MEDICAID ==
--- NOTE | 2019-11-30 18:36 | ED Physician Documentation ---
PD HPI ABD PAIN - Stated complaint Stated Complaint: SOA, DISTENDED ABD - Chief complaint Chief Complaint: Abd Pain - History obtained from History obtained from: Patient (59-year-old woman with alcoholic cirrhosis presents requesting a paracentesis. Her last paracentesis was in April of last year. She is feeling tight and shortness of breath because of the abdominal distention. No fevers.) Review of Systems Constitutional: reports: Fatigue. denies: Fever, Chills, Myalgias Respiratory: reports: Dyspnea. denies: Cough GI: reports: Abdominal Pain. 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 07/13/18 02/12/19 24,000 Units Capsule] Multivitamin [Multiple Vitamins] 1 each PO DAILY #10 tablet 09/22/18 02/12/19 Spironolactone [Aldactone] 25 mg PO BID 12/06/18 02/12/19 Naloxone HCl [Narcan] 1 spray ALLI PRN PRN 02/12/19 02/12/19 Magnesium Oxide [Mag Ox] 400 mg PO BIDWM #60 tablet 02/14/19 Propranolol [Inderal] 10 mg PO BID #60 tablet 02/14/19 Thiamine [Vitamin B-1] 100 mg PO DAILY #30 tablet 02/14/19 Furosemide [Lasix] 20 mg PO DAILY #14 tablet 03/03/19 Pantoprazole [Protonix] 40 mg PO BID #30 tablet 03/03/19 Ferrous Sulfate 325 mg PO DAILY #30 tablet 10/10/19 - Allergies Allergies/Adverse Reactions: Allergies Allergy/AdvReac Type Severity Reaction Status Date / Time ketorolac tromethamine * Allergy Severe Hives Verified 11/30/19 18:18 [From Toradol] - Social History Does the pt smoke?: Yes Smoking Status: Current every day smoker Does the pt drink ETOH?: No Does the pt have substance abuse?: No - Immunizations Immunizations are current?: No Immunizations: TDAP >10years/unknown - POLST Patient has POLST: No POLST Status: Full Code PD ED PE NORMAL - Vitals Vital signs reviewed: Yes - General General: Alert and oriented X 3, No acute distress - Respiratory Respiratory: No respiratory distress, Clear bilaterally - Abdomen Abdomen: Other (Distended tight abdomen dull to percussion without tenderness) - Back Back: No CVA TTP, No spinal TTP - Neuro Neuro: Alert and oriented X 3, Normal speech Results - Vitals Vitals: Vital Signs - 24 hr 11/30/19 11/30/19 11/30/19 18:14 18:40 19:51 Temperature 36.5 C 36.9 C Heart Rate 97 95 92 Respiratory 20 20 18 Rate Blood Pressure 130/83 H 127/65 110/78 O2 Saturation 99 99 98 Oxygen O2 Source Room air - Labs Labs: Laboratory Tests 11/30/19 11/30/19 11/30/19 18:30 18:30 18:30 WBC 7.1 RBC 4.21 Hgb 9.5 L Hct 31.5 L MCV 74.8 L MCH 22.6 L MCHC 30.2 L RDW 25.2 H Plt Count 227 MPV 9.0 Neut # (Auto) 4.4 Lymph # (Auto) 2.0 [place] # (Auto) 0.6 Eos # (Auto) 0.1 Baso # (Auto) 0.0 Absolute Nucleated RBC 0.00 Nucleated RBC % 0.0 Manual Slide Review Indicated Platelet Estimate NORMAL (130-450,000) Platelet Morphology NORMAL APPEARANCE RBC Morph Micro Appear 2+ HYPOCHROMASIA PT 12.8 H INR 1.1 Sodium 132 L Potassium 3.4 L Chloride 99 L Carbon Dioxide 20 L Anion Gap 13.0 BUN 7 Creatinine 0.5 Estimated GFR (MDRD) 127 Glucose 133 H Calcium 9.3 Total Bilirubin 0.5 AST 66 H ALT 20 Alkaline Phosphatase 135 H Total Protein 7.7 Albumin 3.6 Globulin 4.1 Albumin/Globulin Ratio 0.9 L Lipase 64 H Ethyl Alcohol 354.7 Procedures - Paracentesis Preparation: Consent obtained, Local anesthesia Location: RLQ Technique: Z-tract, Catheter over needle Fluid: Clear, Volume - enter cc (6500ml) Aftercare: No complications, Patient tolerated well PD MEDICAL DECISION MAKING - ED course ED course: 59-year-old woman with alcoholic cirrhosis presents with dyspnea requesting a paracentesis. This was done after informed consent and she felt much better afterwards. She was continually requesting pain medications but based on her blood alcohol level this would not be appropriate. I considered giving her albumin, but her serum albumin level is surprisingly normal and she never became hypotensive during or after the procedure. Departure - Departure Disposition: Home, Self Care Clinical Impression: Alcohol intoxication, Dyspnea on effort, Liver cirrhosis, alcoholic Condition: Stable Record reviewed to determine appropriate education?: Yes Instructions: ED Alcohol Intoxication Comments: Continue current medications. As discussed it is imperative to quit drinking. You will soon if you do not stop drinking. Call your doctor to arrange a follow-up appointment, make the next available appointment. In the interim, return anytime if worse or if new symptoms develop.
[2019-11-30 18:39] LABS: BASOPHILS % (AUTO) 0.6 %; EOSINOPHILS # (AUTO) 0.1 10^3/uL (0.0-0.7); HGB - HEMOGLOBIN 9.5 g/dL (12.0-16.0); LYMPHOCYTES % (AUTO) 27.7 %; MEAN CORPUSCULAR HEMOGLOBIN 22.6 pg (27.0-31.0); MEAN CORPUSCULAR HGB CONC 30.2 g/dL (32.0-36.0); MEAN CORPUSCULAR VOLUME 74.8 fL (81.0-99.0); MONOCYTES # (AUTO) 0.6 10^3/uL (0.0-1.0); NEUTROPHILS # (AUTO) 4.4 10^3/uL (1.5-6.6); NEUTROPHILS % (AUTO) 61.3 %; PLT - PLATELET COUNT 227 10^3/uL (130-450); RED BLOOD COUNT 4.21 10^6/uL (4.20-5.40); RED CELL DISTRIBUTION WIDTH 25.2 % (12.0-15.0); WHITE BLOOD COUNT 7.1 x10^3/uL (4.8-10.8)
[2019-11-30 18:49] LABS: ALBUMIN 3.6 g/dL (3.2-5.5); ALBUMIN/GLOBULIN RATIO 0.9 (1.0-2.2); BILIRUBIN,TOTAL 0.5 mg/dL (0.2-1.0); CALCIUM 9.3 mg/dL (8.5-10.3); CREATININE 0.5 mg/dL (0.4-1.0); TOTAL PROTEIN 7.7 g/dL (6.7-8.2)
[2019-11-30 19:00] LABS: INR 1.1 (0.8-1.2); PT - PROTHROMBIN TIME 12.8 secs (9.9-12.6)
[2019-11-30 19:19] LABS: PLATELET ESTIMATE, MANUAL NORMAL (130-450,000) (NORMAL); PLATELET MORPHOLOGY NORMAL APPEARANCE (NORMAL)
[2019-11-30 19:57] VITALS: BP 110/78
== END 2019-11-30 20:30 | disposition home or self-care (01) ==
LOC: ED 18:11
DX: K70.31 Alcoholic cirrhosis of liver with ascites (principal); F10.129 Alcohol abuse with intoxication, unspecified; F17.210 Nicotine dependence, cigarettes, uncomplicated
CPT/HCPCS: 36415; 49082; 80053; 80320; 83690; 85025; 85610

== ENCOUNTER 2019-12-02 12:22 | Emergency (ER) | payer MEDICAID ==
--- NOTE | 2019-12-02 12:31 | ED Physician Documentation ---
PD HPI ABD PAIN - Stated complaint Stated Complaint: ABD PX - Chief complaint Chief Complaint: Abd Pain - History obtained from History obtained from: Patient - History of Present Illness Timing - duration: Days Timing - details: Still present Pain level now: 9 Quality: Other ("On fire") Location: RUQ, RLQ Associated symptoms: Near syncope / syncope. No: Fever, Nausea, Vomiting, Dysuria Recently seen: Emergency Dept - Additional information Additional information: This is a 59-year-old woman who presents with complaints that she had her abdomen "tapped" the other day and now it feels as if "her belly is on fire". They removed fluid because she had a significant swelling in the abdomen that she says is from her pancreas they took off 5 L she does not know what that day that was. She had the same bandage on the site where the tap was done until he removed it here upon her presentation to the emergency department and she is not sure whether or not there was drainage. She says her pain is a 9 out of 10. She said she used to drink alcohol quitting yesterday but then said she had a glass of wine today at 9 AM because her boyfriend just keeps bringing it to her. She has not taken anything at home for the pain. She is felt dizzy and reports loss of consciousness because she found a huge "bleeding" on the back of her head but she does not know when it happened. She has been feeling dizzy. She complains of coughing and feeling wheezing in her chest when she breathes but she has no asthma. Denies any dysuria but cannot remember the last time she urinated. She denies any edema. No nausea or vomiting.Has a history of esophageal varices that required banding but denies hepatitis. Review of Systems Unable to obtain: Other (Unreliable historian) Constitutional: denies: Fever Cardiac: denies: Pedal edema Respiratory: reports: Dyspnea, Cough, Wheezing GI: reports: Abdominal Pain. 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 07/13/18 02/12/19 24,000 Units Capsule] Multivitamin [Multiple Vitamins] 1 each PO DAILY #10 tablet 09/22/18 02/12/19 Spironolactone [Aldactone] 25 mg PO BID 12/06/18 02/12/19 Naloxone HCl [Narcan] 1 spray ALLI PRN PRN 02/12/19 02/12/19 Magnesium Oxide [Mag Ox] 400 mg PO BIDWM #60 tablet 02/14/19 Propranolol [Inderal] 10 mg PO BID #60 tablet 02/14/19 Thiamine [Vitamin B-1] 100 mg PO DAILY #30 tablet 02/14/19 Furosemide [Lasix] 20 mg PO DAILY #14 tablet 03/03/19 Pantoprazole [Protonix] 40 mg PO BID #30 tablet 03/03/19 Ferrous Sulfate 325 mg PO DAILY #30 tablet 10/10/19 - Allergies Allergies/Adverse Reactions: Allergies Allergy/AdvReac Type Severity Reaction Status Date / Time ketorolac tromethamine * Allergy Severe Hives Verified 11/30/19 18:18 [From Toradol] - Social History Does the pt smoke?: Yes Smoking Status: Current every day smoker Does the pt drink ETOH?: No Does the pt have substance abuse?: No - Immunizations Immunizations are current?: No Immunizations: TDAP >10years/unknown - POLST Patient has POLST: No POLST Status: Full Code PD ED PE NORMAL - Vitals Vital signs reviewed: Yes - General General: Alert and oriented X 3, No acute distress, Well developed/nourished - HEENT HEENT: Atraumatic, PERRL, EOMI, Other (No scleral icterus. There is no obvious blood in her hair.) - Neck Neck: Supple, no meningeal sign - Cardiac Cardiac: RRR, No murmur, Strong equal pulses - Respiratory Respiratory: No respiratory distress, Clear bilaterally - Abdomen Abdomen: Other (Abdomen is still mildly distended and there is high-pitched gurgling bowel tones, But the abdomen is soft without definite tenderness and no hepatomegaly.) - Back Back: Other (No bruising is noted) - Derm Derm: No rash, Other (She has a sallow complexion) - Neuro Neuro: Alert and oriented X 3, No motor deficit, No sensory deficit, Normal speech Results - Vitals Vitals: Oxygen O2 Source Room air - Labs Labs: Laboratory Tests 12/02/19 12/02/19 12/02/19 12:38 12:38 12:38 WBC 6.6 RBC 4.77 Hgb 10.6 L Hct 35.4 L MCV 74.2 L MCH 22.2 L MCHC 29.9 L RDW 25.7 H Plt Count 186 MPV 8.2 Neut # (Auto) 4.1 Lymph # (Auto) 1.9 [place] # (Auto) 0.4 Eos # (Auto) 0.1 Baso # (Auto) 0.1 Absolute Nucleated RBC 0.00 Nucleated RBC % 0.0 PT 15.4 H INR 1.4 H Sodium 137 Potassium 3.7 Chloride 99 L Carbon Dioxide 26 Anion Gap 12.0 BUN 10 Creatinine 0.5 Estimated GFR (MDRD) 127 Glucose 144 H Calcium 7.8 L Total Bilirubin 0.5 AST 60 H ALT 23 Alkaline Phosphatase 149 H Total Protein 7.1 Albumin 3.4 Globulin 3.7 Albumin/Globulin Ratio 0.9 L Lipase 73 H Ethyl Alcohol 350.6 - Rads (name of study) acute abd series Radiology: EMP read contemporaneously, See rad report (non-specific bowel gas pattern. No free air) PD MEDICAL DECISION MAKING - ED course Complexity details: reviewed old records, reviewed results, re-evaluated patient, d/w patient ED course: Her acute abdominal series does not show any free intraperitoneal air and there is a nonspecific bowel gas pattern. White blood cell count is normal. Electrolytes are essentially normal her lipase is only 74. Alcohol level is 350. I discussed with her that I would not use narcotics for chronic abdominal pain. She was given 2-1/2 mg of Haldol and 25 mg of Benadryl and 10 of Pepcid. On reevaluation she said she was sleepy the pain was slightly improved. We had a lengthy discussion about alcohol treatment programs and how it is going to have to be her that initiates treatment plans in order for it to be successful. She states understanding and really has a desire to stop drinking but just does not feel that she can. Departure - Departure Disposition: 01 Home, Self Care Clinical Impression: Ascites due to chronic alcoholic hepatitis Abdominal pain Qualifiers: Abdominal location: unspecified location Qualified Code(s): R10.9 - Unspecified abdominal pain Alcohol intoxication Qualifiers: Complication of substance-induced condition: with unspecified complication Qualified Code(s): F10.929 - Alcohol use, unspecified with intoxication, unspecified Condition: Good Instructions: Addiction Alcohol Follow-Up: BRYAN TOBIAS MD [Primary Care Provider] - Comments: Unfortunately, your pain is not going to resolve until you make the choice to stop drinking. You have indicated to me that you have referral sources for alcohol treatment programs and I would encourage you to contact them about getting in for alcohol treatment. Discharge Date/Time: 12/02/19 14:00
[2019-12-02 12:47] LABS: BASOPHILS # (AUTO) 0.1 10^3/uL (0.0-0.1); BASOPHILS % (AUTO) 0.8 %; EOSINOPHILS # (AUTO) 0.1 10^3/uL (0.0-0.7); EOSINOPHILS % (AUTO) 1.7 %; HGB - HEMOGLOBIN 10.6 g/dL (12.0-16.0); LYMPHOCYTES # (AUTO) 1.9 10^3/uL (1.5-3.5); LYMPHOCYTES % (AUTO) 28.5 %; MEAN CORPUSCULAR HEMOGLOBIN 22.2 pg (27.0-31.0); MEAN CORPUSCULAR HGB CONC 29.9 g/dL (32.0-36.0); MEAN CORPUSCULAR VOLUME 74.2 fL (81.0-99.0); MEAN PLATELET VOLUME 8.2 fL (7.9-10.8); MONOCYTES # (AUTO) 0.4 10^3/uL (0.0-1.0); MONOCYTES % (AUTO) 6.1 %; NEUTROPHILS # (AUTO) 4.1 10^3/uL (1.5-6.6); NEUTROPHILS % (AUTO) 62.6 %; PLT - PLATELET COUNT 186 10^3/uL (130-450); RED BLOOD COUNT 4.77 10^6/uL (4.20-5.40); RED CELL DISTRIBUTION WIDTH 25.7 % (12.0-15.0); WHITE BLOOD COUNT 6.6 x10^3/uL (4.8-10.8)
[2019-12-02] MEDS ORDERED: diphenhydrAMINE INJ 50 MG/ML VIAL IVP STA (12:51)
[2019-12-02 12:54] LABS: INR 1.4 (0.8-1.2); PT - PROTHROMBIN TIME 15.4 secs (9.9-12.6)
[2019-12-02] MEDS ORDERED: HALOPERIDOL 5 MG/ML VIAL IVP STA (12:54)
[2019-12-02] MEDS ORDERED: FAMOTIDINE 20 MG/2 ML VIAL IVP STA (12:57)
[2019-12-02 13:03] LABS: ALBUMIN 3.4 g/dL (3.2-5.5); ALBUMIN/GLOBULIN RATIO 0.9 (1.0-2.2); BILIRUBIN,TOTAL 0.5 mg/dL (0.2-1.0); CALCIUM 7.8 mg/dL (8.5-10.3); CREATININE 0.5 mg/dL (0.4-1.0); TOTAL PROTEIN 7.1 g/dL (6.7-8.2)
--- NOTE | 2019-12-02 13:42 | XRAY Report ---
Reason: abdominal pain Procedure Date: 12/02/2019 Accession Number: [id number] / [id number] Procedure: XR - Abdomen Acute CPT Code: Final Report FULL RESULT: EXAM: ABDOMINAL SERIES AND PA CHEST EXAM DATE: 12/02/2019 12:49 PM. CLINICAL HISTORY: Abdominal pain. COMPARISON: CHEST 1 VIEW 11/28/2019 4:04 PM. TECHNIQUE: 2 views abdomen and 1 view chest. FINDINGS: CHEST: Lungs/Pleura: No focal opacities. No effusion or pneumothorax. Mediastinum: Within exam limitations, cardiomediastinal contour is normal. ABDOMEN: Bowel Gas Pattern: Within normal limits. No dilated loops or abnormal fluid levels. Centralization of small bowel loops could reflect ascites. Free Air: None. Other: None. IMPRESSION: 1. Overall nonobstructive bowel gas pattern. 2. No evidence for pneumoperitoneum. 3. Centralization of few gas-filled loops of small bowel could reflect ascites. RADIA
[2019-12-02 13:56] VITALS: BP 103/76
== END 2019-12-02 14:00 | disposition home or self-care (01) ==
LOC: ED 12:22
DX: K70.11 Alcoholic hepatitis with ascites (principal); F10.129 Alcohol abuse with intoxication, unspecified; F17.200 Nicotine dependence, unspecified, uncomplicated
CPT/HCPCS: 36415; 74022; 80053; 80320; 83690; 85025; 85610; 96374; 96375; 99284; 99285; J1200

== ENCOUNTER 2019-12-07 14:48 | Emergency (ER) | payer MEDICAID ==
[2019-12-07 14:59] VITALS: BP 125/78
--- NOTE | 2019-12-07 15:30 | ED Physician Documentation ---
History of Present Illness - Stated complaint Stated Complaint: ABD PX - Chief complaint Chief Complaint: Abd Pain - History obtained from History obtained from: Patient - History of Present Illness Timing: Chronic Pain level max: 9 Pain level now: 9 - Additonal information Additional information: 59-year-old female with a history of alcoholic cirrhosis with varices. She states that she is having ongoing abdominal pain. This is chronic is been present for several months. She states her doctor will not give her pain medications. She states that she had a paracentesis 4 to 5 days ago. States that her abdomen is swollen again. She does not know what medication she takes at home. She is not sure if she is on diuretics or not but thinks she is. She states she last saw her doctor 1 month ago. Does not have any fevers. Occasionally has a cough, but nothing significant. No vomiting. No diarrhea. No constipation. She is not taking anything for pain at home. 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 07/13/18 02/12/19 24,000 Units Capsule] Multivitamin [Multiple Vitamins] 1 each PO DAILY #10 tablet 09/22/18 02/12/19 Spironolactone [Aldactone] 25 mg PO BID 12/06/18 02/12/19 Naloxone HCl [Narcan] 1 spray ALLI PRN PRN 02/12/19 02/12/19 Magnesium Oxide [Mag Ox] 400 mg PO BIDWM #60 tablet 02/14/19 Propranolol [Inderal] 10 mg PO BID #60 tablet 02/14/19 Thiamine [Vitamin B-1] 100 mg PO DAILY #30 tablet 02/14/19 Furosemide [Lasix] 20 mg PO DAILY #14 tablet 03/03/19 Pantoprazole [Protonix] 40 mg PO BID #30 tablet 03/03/19 Ferrous Sulfate 325 mg PO DAILY #30 tablet 10/10/19 Furosemide [Lasix] 20 mg PO DAILY #30 tablet 12/07/19 - Allergies Allergies/Adverse Reactions: Allergies Allergy/AdvReac Type Severity Reaction Status Date / Time ketorolac tromethamine * Allergy Severe Hives Verified 12/07/19 14:59 [From Toradol] - Social History Does the pt smoke?: Yes Smoking Status: Current every day smoker Does the pt drink ETOH?: No Does the pt have substance abuse?: No - Immunizations Immunizations are current?: No Immunizations: TDAP >10years/unknown - POLST Patient has POLST: No POLST Status: Full Code PD ED PE NORMAL - Vitals Vital signs reviewed: Yes - General General: Alert and oriented X 3, No acute distress, Well developed/nourished - HEENT HEENT: Moist mucous membranes - Neck Neck: Supple, no meningeal sign - Cardiac Cardiac: RRR - Respiratory Respiratory: No respiratory distress, Clear bilaterally - Abdomen Abdomen: Normal bowel sounds, Soft, Other (Mild distention, mild diffuse tenderness. No peritoneal signs.) - Derm Derm: Warm and dry, No rash - Extremities Extremities: No edema - Neuro Neuro: Alert and oriented X 3 - Psych Psych: Normal mood, Normal affect Results - Vitals Vitals: Vital Signs - 24 hr 12/07/19 12/07/19 12/07/19 14:51 14:59 16:59 Temperature 36.3 C L Heart Rate 99 99 96 Respiratory 20 20 18 Rate Blood Pressure 125/78 125/78 125/78 O2 Saturation 100 100 100 Oxygen O2 Source Room air - Labs Labs: Laboratory Tests 12/07/19 12/07/19 12/07/19 15:58 15:58 16:16 WBC 6.6 RBC 4.39 Hgb 10.1 L Hct 32.7 L MCV 74.5 L MCH 23.0 L MCHC 30.9 L RDW 26.6 H Plt Count 183 MPV 8.8 Neut # (Auto) 4.2 Lymph # (Auto) 1.5 [place] # (Auto) 0.8 Eos # (Auto) 0.0 Baso # (Auto) 0.0 Absolute Nucleated RBC 0.00 Nucleated RBC % 0.0 Manual Slide Review Indicated WBC Morphology NORMAL APPEARANCE Platelet Estimate NORMAL (130-450,000) Platelet Morphology NORMAL APPEARANCE RBC Morph Micro Appear 1+ MICROCYTOSIS PT 14.7 H INR 1.3 H Sodium 132 L Potassium 3.8 Chloride 98 L Carbon Dioxide 17 L Anion Gap 17.0 H BUN 8 Creatinine 0.4 Estimated GFR (MDRD) 164 Glucose 103 H Calcium 7.4 L Total Bilirubin 0.6 AST 57 H ALT 18 Alkaline Phosphatase 190 H Total Protein 6.4 L Albumin 2.9 L Globulin 3.5 Albumin/Globulin Ratio 0.8 L Lipase 80 H Ethyl Alcohol 364.8 PD MEDICAL DECISION MAKING - ED course Complexity details: reviewed results, re-evaluated patient, considered differential, d/w patient ED course: No acute emergency medical condition at this time. We will change her diuretics. Informed the patient that we will not be giving her narcotics in the emergency department. She will follow-up with her doctor to see if he will refill her pain medications early for her. No evidence of SBP. No evidence of sepsis. No evidence of acute abdomen. I reviewed her medication list from her doctor's office prior to changing her diuretics and adding Lasix. Patient counseled regarding signs and symptoms for which I believe and urgent re- evaluation would be necessary. Patient with good understanding of and agreement to plan and is comfortable going home at this time This document was made in part using voice recognition software. While efforts are made to proofread this document, sound alike and grammatical errors may occur. Patient was again counseled to stop drinking alcohol. Departure - Departure Disposition: 01 Home, Self Care Clinical Impression: Chronic abdominal pain, Ascites due to chronic alcoholic hepatitis Alcohol intoxication Qualifiers: Complication of substance-induced condition: uncomplicated Qualified Code(s): F10.920 - Alcohol use, unspecified with intoxication, uncomplicated Liver cirrhosis, alcoholic Qualifiers: Ascites presence: with ascites Qualified Code(s): K70.31 - Alcoholic cirrhosis of liver with ascites Condition: Good Instructions: ED Abdominal Pain Unkn Cause, ED Alcohol Abuse Follow-Up: BRYAN TOBIAS MD [Primary Care Provider] - Within 3 Days Prescriptions: Furosemide [Lasix] 20 mg PO DAILY #30 tablet Comments: You need to follow-up with your doctor for further pain medication. You are significantly elevated in your alcohol level today, therefore we will not give you narcotic pain medication at this time as mixing this with alcohol can be exceedingly dangerous. We also do not refill lost pain medication. Your laboratory tests do not show any significant abnormalities from your prior. We will restart you on Lasix in combination with your Spironolactone. You need to follow-up with your doctor in 3 days for repeat evaluation and to repeat your laboratory testing. Discharge Date/Time: 12/07/19 17:11
[2019-12-07 16:11] LABS: INR 1.3 (0.8-1.2); PT - PROTHROMBIN TIME 14.7 secs (9.9-12.6)
[2019-12-07 16:16] LABS: ALBUMIN 2.9 g/dL (3.2-5.5); ALBUMIN/GLOBULIN RATIO 0.8 (1.0-2.2); BILIRUBIN,TOTAL 0.6 mg/dL (0.2-1.0); CALCIUM 7.4 mg/dL (8.5-10.3); CREATININE 0.4 mg/dL (0.4-1.0); TOTAL PROTEIN 6.4 g/dL (6.7-8.2)
[2019-12-07 16:22] LABS: BASOPHILS % (AUTO) 0.6 %; EOSINOPHILS % (AUTO) 0.5 %; HGB - HEMOGLOBIN 10.1 g/dL (12.0-16.0); LYMPHOCYTES # (AUTO) 1.5 10^3/uL (1.5-3.5); LYMPHOCYTES % (AUTO) 23.3 %; MEAN CORPUSCULAR HGB CONC 30.9 g/dL (32.0-36.0); MEAN CORPUSCULAR VOLUME 74.5 fL (81.0-99.0); MEAN PLATELET VOLUME 8.8 fL (7.9-10.8); MONOCYTES # (AUTO) 0.8 10^3/uL (0.0-1.0); MONOCYTES % (AUTO) 12.1 %; NEUTROPHILS # (AUTO) 4.2 10^3/uL (1.5-6.6); PLT - PLATELET COUNT 183 10^3/uL (130-450); RED BLOOD COUNT 4.39 10^6/uL (4.20-5.40); RED CELL DISTRIBUTION WIDTH 26.6 % (12.0-15.0); WHITE BLOOD COUNT 6.6 x10^3/uL (4.8-10.8)
[2019-12-07 16:37] LABS: PLATELET ESTIMATE, MANUAL NORMAL (130-450,000) (NORMAL); PLATELET MORPHOLOGY NORMAL APPEARANCE (NORMAL)
[2019-12-07] MEDS ORDERED: FUROSEMIDE 20 MG TABLET PO STA (16:46)
== END 2019-12-07 17:11 | disposition home or self-care (01) ==
LOC: ED 14:48
DX: R10.9 Unspecified abdominal pain (principal); G89.29 Other chronic pain; K70.11 Alcoholic hepatitis with ascites; F17.200 Nicotine dependence, unspecified, uncomplicated
CPT/HCPCS: 80053; 80320; 83690; 85025; 85610

== ENCOUNTER 2019-12-08 17:37 | Emergency (ER) | payer MEDICAID ==
[2019-12-08] MEDS ORDERED: SODIUM CHLORIDE 0.9% 1,000 ML IV ONE (17:56)
[2019-12-08] MEDS ORDERED: HYOSCYAMINE SL 0.125 MG TABLET SL STA (17:56)
[2019-12-08] MEDS ORDERED: PANTOPRAZOLE 40 MG VIAL IVP STA (17:57)
[2019-12-08] MEDS ORDERED: cefTRIAXone 1 GM VIAL IVP STA (18:02)
--- NOTE | 2019-12-08 18:02 | ED Physician Documentation ---
PD HPI ABD PAIN - Stated complaint Stated Complaint: VOMITING/DIARRHEA - Chief complaint Chief Complaint: Abd Pain - History obtained from History obtained from: Patient - History of Present Illness Timing - onset: Today Timing - duration: Days (1) Timing - details: Abrupt onset Pain level max: 9 Pain level now: 9 Quality: Aching, Pain Location: All over / everywhere Improved by: Other (nothing) Worsened by: Other (nothing) Associated symptoms: Nausea, Vomiting, Hematemesis, Melena. No: Fever - Additional information Additional information: 59-year-old female, chronic alcoholic with alcoholic cirrhosis and ascites. She states that she vomited bright red blood today x1 and had dark tarry stools today x1. She states she has a history of varices and they were last banded in April 2019 at [facility] in [place]. She has also been out of her oxycodone for the past 2 weeks and has multiple visits to the emergency department for pain related complaints since that time. No fevers. Nothing makes it better or worse. Review of Systems Ten Systems: 10 systems reviewed and negative Constitutional: denies: Fever, Chills Nose: denies: Rhinorrhea / runny nose, Congestion Cardiac: denies: Chest pain / pressure Respiratory: denies: Cough GI: reports: Nausea, Vomiting, Hematemesis, Bloody / black stool. 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 07/13/18 02/12/19 24,000 Units Capsule] Multivitamin [Multiple Vitamins] 1 each PO DAILY #10 tablet 09/22/18 02/12/19 Spironolactone [Aldactone] 25 mg PO BID 12/06/18 02/12/19 Naloxone HCl [Narcan] 1 spray ALLI PRN PRN 02/12/19 02/12/19 Magnesium Oxide [Mag Ox] 400 mg PO BIDWM #60 tablet 02/14/19 Propranolol [Inderal] 10 mg PO BID #60 tablet 02/14/19 Thiamine [Vitamin B-1] 100 mg PO DAILY #30 tablet 02/14/19 Furosemide [Lasix] 20 mg PO DAILY #14 tablet 03/03/19 Pantoprazole [Protonix] 40 mg PO BID #30 tablet 03/03/19 Ferrous Sulfate 325 mg PO DAILY #30 tablet 10/10/19 Furosemide [Lasix] 20 mg PO DAILY #30 tablet 12/07/19 - Allergies Allergies/Adverse Reactions: Allergies Allergy/AdvReac Type Severity Reaction Status Date / Time ketorolac tromethamine * Allergy Severe Hives Verified 12/08/19 17:41 [From Toradol] - Social History Does the pt smoke?: Yes Smoking Status: Current every day smoker Does the pt drink ETOH?: No Does the pt have substance abuse?: No - Immunizations Immunizations are current?: No Immunizations: TDAP >10years/unknown - POLST Patient has POLST: No POLST Status: Full Code PD ED PE NORMAL - Vitals Vital signs reviewed: Yes - General General: Alert and oriented X 3, No acute distress, Well developed/nourished - HEENT HEENT: PERRL, Moist mucous membranes - Neck Neck: Supple, no meningeal sign - Cardiac Cardiac: RRR - Respiratory Respiratory: No respiratory distress, Clear bilaterally - Abdomen Abdomen: Soft, Other (Moderately distended, diffuse tenderness without peritoneal signs) - Rectal Rectal: Other (Minimal amount of dark stool in the rectal vault. No tenderness) - Back Back: No spinal TTP - Derm Derm: Warm and dry, No rash - Extremities Extremities: No edema - Neuro Neuro: Alert and oriented X 3 - Psych Psych: Normal mood, Normal affect Results - Vitals Vitals: Vital Signs - 24 hr 12/08/19 12/08/19 17:41 17:58 Temperature 36.8 C 36.9 C Heart Rate 100 92 Respiratory 18 18 Rate Blood Pressure 127/82 H 133/88 H O2 Saturation 97 96 Oxygen O2 Source Room air - Labs Labs: Microbiology 12/08/19 17:50 Occult Blood - Final Stool Laboratory Tests 12/08/19 12/08/19 12/08/19 18:15 18:15 18:15 WBC 7.2 RBC 4.11 L Hgb 9.6 L Hct 30.9 L MCV 75.2 L MCH 23.4 L MCHC 31.1 L RDW 26.2 H Plt Count 169 MPV 8.8 Neut # (Auto) 4.4 Lymph # (Auto) 1.7 Pepin # (Auto) 1.0 Eos # (Auto) 0.0 Baso # (Auto) 0.1 Absolute Nucleated RBC 0.00 Nucleated RBC % 0.0 Manual Slide Review Indicated RBC Morph Micro Appear 2+ POIKILOCYTOSIS PT 14.2 H INR 1.3 H APTT 31.6 Sodium Potassium Chloride Carbon Dioxide Anion Gap BUN Creatinine Estimated GFR (MDRD) Glucose Calcium Total Bilirubin AST ALT Alkaline Phosphatase Total Protein Albumin Globulin Albumin/Globulin Ratio Lipase Ethyl Alcohol Blood Type A POSITIVE Antibody Screen NEGATIVE 12/08/19 18:15 WBC RBC Hgb Hct MCV MCH MCHC RDW Plt Count MPV Neut # (Auto) Lymph # (Auto) Pepin # (Auto) Eos # (Auto) Baso # (Auto) Absolute Nucleated RBC Nucleated RBC % Manual Slide Review RBC Morph Micro Appear PT INR APTT Sodium 128 L Potassium 3.5 Chloride 93 L Carbon Dioxide 20 L Anion Gap 15.0 H BUN 8 Creatinine 0.5 Estimated GFR (MDRD) 127 Glucose 106 H Calcium 7.9 L Total Bilirubin 0.6 AST 65 H ALT 19 Alkaline Phosphatase 213 H Total Protein 7.0 Albumin 3.2 Globulin 3.8 Albumin/Globulin Ratio 0.8 L Lipase 49 Ethyl Alcohol 274.6 Blood Type Antibody Screen PD MEDICAL DECISION MAKING - ED course Complexity details: reviewed results, re-evaluated patient, considered differential, d/w patient ED course: Patient with reports of what sounds like possible variceal bleeding today. We do not have GI here. She will need transfer for higher level of care. Fecal occult blood is positive. Last time patient had her varices banded was April 2019 at [facility] in [place]. Patient was given Protonix, Rocephin and IV fluids here. Patient was graciously accepted to [facility] by Dr. Jordan at 1945. COBRA forms completed. Patient remained stable throughout the emergency department stay. This document was made in part using voice recognition software. While efforts are made to proofread this document, sound alike and grammatical errors may occur. Departure - Departure Disposition: 02 Transfer Acute Care Hosp Clinical Impression: Ascites due to chronic alcoholic hepatitis, Alcohol abuse Esophageal varices with hemorrhage Qualifiers: Esophageal varices type: unspecified type Qualified Code(s): I85.01 - Esophageal varices with bleeding Condition: Stable
[2019-12-08 18:27] LABS: BASOPHILS # (AUTO) 0.1 10^3/uL (0.0-0.1); BASOPHILS % (AUTO) 0.7 %; EOSINOPHILS % (AUTO) 0.1 %; HGB - HEMOGLOBIN 9.6 g/dL (12.0-16.0); LYMPHOCYTES # (AUTO) 1.7 10^3/uL (1.5-3.5); LYMPHOCYTES % (AUTO) 23.3 %; MEAN CORPUSCULAR HEMOGLOBIN 23.4 pg (27.0-31.0); MEAN CORPUSCULAR HGB CONC 31.1 g/dL (32.0-36.0); MEAN CORPUSCULAR VOLUME 75.2 fL (81.0-99.0); MEAN PLATELET VOLUME 8.8 fL (7.9-10.8); MONOCYTES % (AUTO) 14.1 %; NEUTROPHILS # (AUTO) 4.4 10^3/uL (1.5-6.6); NEUTROPHILS % (AUTO) 61.4 %; PLT - PLATELET COUNT 169 10^3/uL (130-450); RED BLOOD COUNT 4.11 10^6/uL (4.20-5.40); RED CELL DISTRIBUTION WIDTH 26.2 % (12.0-15.0); WHITE BLOOD COUNT 7.2 x10^3/uL (4.8-10.8)
[2019-12-08 18:34] LABS: INR 1.3 (0.8-1.2); PT - PROTHROMBIN TIME 14.2 secs (9.9-12.6)
[2019-12-08 18:39] LABS: ALBUMIN 3.2 g/dL (3.2-5.5); ALBUMIN/GLOBULIN RATIO 0.8 (1.0-2.2); BILIRUBIN,TOTAL 0.6 mg/dL (0.2-1.0); CALCIUM 7.9 mg/dL (8.5-10.3); CREATININE 0.5 mg/dL (0.4-1.0)
[2019-12-08 18:41] LABS: PARTIAL THROMBOPLASTIN TIME 31.6 secs (24.9-33.3)
[2019-12-08 20:27] VITALS: BP 144/73
== END 2019-12-08 20:27 | disposition short-term general hospital (02) ==
LOC: ED 17:37
DX: I85.01 Esophageal varices with bleeding (principal); K70.11 Alcoholic hepatitis with ascites; F10.10 Alcohol abuse, uncomplicated; R10.9 Unspecified abdominal pain; G89.29 Other chronic pain; F17.200 Nicotine dependence, unspecified, uncomplicated
CPT/HCPCS: 36415; 80053; 80320; 82272; 83690; 85025; 85610; 85730; 86850; 86900; 86901; 96374; 99284; 99285; A9270

== ENCOUNTER 2019-12-19 12:22 | Outpatient (CLI) | payer MEDICAID ==
[2019-12-19 12:47] LABS: BASOPHILS % (AUTO) 0.7 %; EOSINOPHILS % (AUTO) 0.4 %; HGB - HEMOGLOBIN 9.4 g/dL (12.0-16.0); LYMPHOCYTES # (AUTO) 1.2 10^3/uL (1.5-3.5); LYMPHOCYTES % (AUTO) 21.3 %; MEAN CORPUSCULAR HEMOGLOBIN 25.8 pg (27.0-31.0); MEAN CORPUSCULAR HGB CONC 29.7 g/dL (32.0-36.0); MEAN CORPUSCULAR VOLUME 87.1 fL (81.0-99.0); MEAN PLATELET VOLUME 8.6 fL (7.9-10.8); MONOCYTES # (AUTO) 0.5 10^3/uL (0.0-1.0); MONOCYTES % (AUTO) 9.4 %; NEUTROPHILS # (AUTO) 3.7 10^3/uL (1.5-6.6); NEUTROPHILS % (AUTO) 67.8 %; PLT - PLATELET COUNT 350 10^3/uL (130-450); RED BLOOD COUNT 3.64 10^6/uL (4.20-5.40); RED CELL DISTRIBUTION WIDTH 30.5 % (12.0-15.0); WHITE BLOOD COUNT 5.4 x10^3/uL (4.8-10.8)
[2019-12-19 13:06] LABS: ALBUMIN 4.9 g/dL (3.2-5.5); ALBUMIN/GLOBULIN RATIO 1.5 (1.0-2.2); BILIRUBIN,TOTAL 0.8 mg/dL (0.2-1.0); CALCIUM 9.3 mg/dL (8.5-10.3); CREATININE 0.7 mg/dL (0.4-1.0); TOTAL PROTEIN 8.1 g/dL (6.7-8.2)
[2019-12-19 13:07] LABS: RBC MORPHOLOGY (MULTIPLE) 4+ ANISOCYTOSIS (NORMAL)
== END 2019-12-19 12:23 | disposition home or self-care (01) ==
LOC: LAB 12:22
PROVIDERS: ATTEND Family Medicine
DX: K92.2 Gastrointestinal hemorrhage, unspecified (principal)
CPT/HCPCS: 36415; 80053; 83735; 85025

== ENCOUNTER 2019-12-27 11:46 | Outpatient (CLI) | payer MEDICAID ==
[2019-12-27 12:15] LABS: BASOPHILS # (AUTO) 0.1 10^3/uL (0.0-0.1); EOSINOPHILS # (AUTO) 0.2 10^3/uL (0.0-0.7); EOSINOPHILS % (AUTO) 2.1 %; HGB - HEMOGLOBIN 12.6 g/dL (12.0-16.0); LYMPHOCYTES # (AUTO) 1.6 10^3/uL (1.5-3.5); LYMPHOCYTES % (AUTO) 22.1 %; MEAN CORPUSCULAR HEMOGLOBIN 25.5 pg (27.0-31.0); MEAN CORPUSCULAR HGB CONC 29.6 g/dL (32.0-36.0); MEAN CORPUSCULAR VOLUME 86.2 fL (81.0-99.0); MEAN PLATELET VOLUME 8.5 fL (7.9-10.8); MONOCYTES # (AUTO) 0.5 10^3/uL (0.0-1.0); MONOCYTES % (AUTO) 7.2 %; NEUTROPHILS # (AUTO) 4.8 10^3/uL (1.5-6.6); NEUTROPHILS % (AUTO) 67.3 %; PLT - PLATELET COUNT 367 10^3/uL (130-450); RED BLOOD COUNT 4.94 10^6/uL (4.20-5.40); RED CELL DISTRIBUTION WIDTH 26.8 % (12.0-15.0); WHITE BLOOD COUNT 7.2 x10^3/uL (4.8-10.8)
[2019-12-27 12:28] LABS: ALBUMIN 4.8 g/dL (3.2-5.5); ALBUMIN/GLOBULIN RATIO 1.4 (1.0-2.2); BILIRUBIN,TOTAL 0.6 mg/dL (0.2-1.0); CALCIUM 8.9 mg/dL (8.5-10.3); CREATININE 0.8 mg/dL (0.4-1.0); TOTAL PROTEIN 8.3 g/dL (6.7-8.2)
[2019-12-27 12:47] LABS: RBC MORPHOLOGY (MULTIPLE) 4+ ANISOCYTOSIS (NORMAL)
--- NOTE | 2019-12-27 12:57 | XRAY Report ---
Reason: PNEUMONIA Procedure Date: 12/27/2019 Accession Number: [id number] / [id number] Procedure: XR - Chest 2 View X-Ray CPT Code: 04457 Addended Final Report FULL RESULT: EXAM: CHEST RADIOGRAPHY EXAM DATE: 12/27/2019 12:32 PM. CLINICAL HISTORY: Cough, shortness of breath, evaluate for pneumonia. COMPARISON: Acute abdomen series from 12/02/2019. CT of the abdomen and pelvis from 10/10/2019. TECHNIQUE: 2 views. FINDINGS: Lungs/Pleura: There is a large right pleural effusion, which is new from the prior examination. Patchy opacity is demonstrated in the right hilum and midlung, presumably atelectasis. The left lung is clear. No left pleural effusion is demonstrated. No pneumothorax. Mediastinum: There is obscuration of the right heart and mediastinal contours. Left heart and mediastinal contours are within normal limits. Pulmonary vasculature is unremarkable. Other: None. IMPRESSION: New large right pleural effusion with probable associated atelectasis. 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 Neoplastic process is considered unlikely given normal chest radiograph on 12/02/2019. RADIA The call report notification system was initiated by Dr. Adam Hurst at 12:50 PM on 12/27/2019. ADDENDUM: 12/27/19 13:07 The above call report findings were discussed with Dr. Yury Chiang by Dr. Adam Hurst at 01:07 PM on 12/27/2019.
== END 2019-12-27 11:47 | disposition home or self-care (01) ==
LOC: LAB 11:46
PROVIDERS: ATTEND Family Medicine
DX: J90 Pleural effusion, not elsewhere classified (principal)
CPT/HCPCS: 36415; 71046; 80053; 85025

== ENCOUNTER 2019-12-28 09:57 | Emergency (ER) | payer MEDICAID ==
[2019-12-28] MEDS ORDERED: HYDROcod/ACETAM 5/325 MG TABLET PO STA (10:21)
--- NOTE | 2019-12-28 10:31 | ED Physician Documentation ---
History of Present Illness - Stated complaint Stated Complaint: SOA - Chief complaint Chief Complaint: Resp - History obtained from History obtained from: Patient - History of Present Illness Timing: How many days ago (several) Pain level max: 5 Pain level now: 5 - Additonal information Additional information: Patient presents to the emergency department with a pleural effusion found on chest x-ray. Her doctor sent her here to have the pleural effusion drained. She states that she is having difficulty breathing and pain. Has not been taking her pain medication at home. She states that she recently finished a course of antibiotics for pneumonia, does not know which antibiotics they were. She is a well-known patient with cirrhosis and esophageal varices. Nothing makes this better or worse. Review of Systems Ten Systems: 10 systems reviewed and negative Constitutional: denies: Fever, Chills Throat: denies: Sore throat Cardiac: denies: Chest pain / pressure, Palpitations Respiratory: reports: Dyspnea. denies: Hemoptysis, Wheezing GI: denies: Vomiting, Diarrhea Skin: denies: Rash Musculoskeletal: denies: Neck pain, Back pain Neurologic: denies: Headache PD PAST MEDICAL HISTORY - Past Medical History Past Medical History: Yes Cardiovascular: Coronary artery disease, [place], Murmur Respiratory: Shortness of breath Neuro: Headaches, Migraines, Tremors Endocrine/Autoimmune: None GI: GERD, Pancreatitis, Hepatitis, Cirrhosis, Cholelithiasis, Other CONTRACTS MANAGER: None : Nocturia HEENT: Chronic sinusitis Psych: Depression, Anxiety, ADD/ADHD, Post traumatic stress disorder Musculoskeletal: Osteoarthritis, Chronic back pain Derm: None - Past Surgical History Past Surgical History: Yes General: Other Ortho: Other /CONTRACTS MANAGER: Tubal ligation, Breast implants HEENT: Other - Present Medications Home Medications: Ambulatory Orders Medication Instructions Recorded Confirmed Lipase/Protease/Amylase [Bulmaro Rosario 1 each PO TIDWM #90 capsule. 07/13/18 02/12/19 24,000 Units Capsule] Multivitamin [Multiple Vitamins] 1 each PO DAILY #10 tablet 09/22/18 02/12/19 Spironolactone [Aldactone] 25 mg PO BID 12/06/18 02/12/19 Naloxone HCl [Narcan] 1 spray ALLI PRN PRN 02/12/19 02/12/19 Magnesium Oxide [Mag Ox] 400 mg PO BIDWM #60 tablet 02/14/19 Propranolol [Inderal] 10 mg PO BID #60 tablet 02/14/19 Thiamine [Vitamin B-1] 100 mg PO DAILY #30 tablet 02/14/19 Furosemide [Lasix] 20 mg PO DAILY #14 tablet 03/03/19 Pantoprazole [Protonix] 40 mg PO BID #30 tablet 03/03/19 Ferrous Sulfate 325 mg PO DAILY #30 tablet 10/10/19 Furosemide [Lasix] 20 mg PO DAILY #30 tablet 12/07/19 - Allergies Allergies/Adverse Reactions: Allergies Allergy/AdvReac Type Severity Reaction Status Date / Time ketorolac tromethamine * Allergy Severe Hives Verified 12/28/19 10:03 [From Toradol] - Social History Does the pt smoke?: Yes Smoking Status: Current every day smoker Does the pt drink ETOH?: No Does the pt have substance abuse?: No - Immunizations Immunizations are current?: No Immunizations: TDAP >10years/unknown - POLST Patient has POLST: No POLST Status: Full Code PD ED PE NORMAL - Vitals Vital signs reviewed: Yes - General General: Alert and oriented X 3, No acute distress, Well developed/nourished - HEENT HEENT: PERRL, Moist mucous membranes - Neck Neck: Supple, no meningeal sign - Cardiac Cardiac: RRR, Strong equal pulses - Respiratory Respiratory: No respiratory distress, Other (Diminished breath sounds right lung) - Abdomen Abdomen: Soft, Non tender, Non distended - Derm Derm: Warm and dry - Extremities Extremities: No calf tenderness / cord - Neuro Neuro: Alert and oriented X 3 - Psych Psych: Normal mood, Normal affect Results - Vitals Vitals: Vital Signs - 24 hr 12/28/19 12/28/19 12/28/19 10:03 10:36 10:40 Temperature 37.1 C Heart Rate 85 79 78 Respiratory 24 16 22 Rate Blood Pressure 136/94 H 128/87 H 128/87 H O2 Saturation 94 97 97 12/28/19 12/28/19 12/28/19 11:55 13:10 13:41 Temperature Heart Rate 81 78 78 Respiratory 19 19 18 Rate Blood Pressure 115/79 103/71 106/68 O2 Saturation 97 94 98 Oxygen O2 Source Room air - Labs Labs: Laboratory Tests 12/28/19 12/28/19 12/28/19 10:55 10:55 10:55 WBC 6.6 RBC 4.56 Hgb 11.6 L Hct 39.5 MCV 86.6 MCH 25.4 L MCHC 29.4 L RDW 27.0 H Plt Count 341 MPV 8.6 Neut # (Auto) 4.2 Lymph # (Auto) 1.5 Marion # (Auto) 0.6 Eos # (Auto) 0.1 Baso # (Auto) 0.1 Absolute Nucleated RBC 0.00 Nucleated RBC % 0.0 Manual Slide Review Indicated RBC Morph Micro Appear 4+ ANISOCYTOSIS PT 15.3 H INR 1.4 H APTT 33.8 H Sodium 138 Potassium 3.8 Chloride 102 Carbon Dioxide 25 Anion Gap 11.0 BUN 18 Creatinine 0.7 Estimated GFR (MDRD) 86 L Glucose 95 Calcium 9.5 Total Bilirubin 0.7 AST 50 H ALT 34 Alkaline Phosphatase 104 Total Protein 8.3 H Albumin 4.8 Globulin 3.5 Albumin/Globulin Ratio 1.4 Lipase 81 H Fluid Source Fluid Color Fluid Clarity Fluid WBC Fluid RBC 12/28/19 12:50 WBC RBC Hgb Hct MCV MCH MCHC RDW Plt Count MPV Neut # (Auto) Lymph # (Auto) Marion # (Auto) Eos # (Auto) Baso # (Auto) Absolute Nucleated RBC Nucleated RBC % Manual Slide Review RBC Morph Micro Appear PT INR APTT Sodium Potassium Chloride Carbon Dioxide Anion Gap BUN Creatinine Estimated GFR (MDRD) Glucose Calcium Total Bilirubin AST ALT Alkaline Phosphatase Total Protein Albumin Globulin Albumin/Globulin Ratio Lipase Fluid Source PLEURAL Fluid Color YELLOW Fluid Clarity CLEAR Fluid WBC 385 Fluid RBC 2000 - Rads (name of study) CT chest Radiology: Prelim report reviewed, EMP read contemporaneously, See rad report (1. Large right pleural effusion with displacement of the heart and mediastinum toward the left. Resulting compressive atelectasis of the majority of the right lung. 2. Superior endplate L2 Schmorl's node appears well healed with about 5 mm of posterior retropulsion. 3. In the abdomen, liver shows a cirrhotic configuration with short gastric varices at the GE junction. ) cxr Radiology: Prelim report reviewed, EMP read contemporaneously, See rad report (1. Right pleural effusion has decreased compared to 12/27/2019, now moderate volume. Adjacent atelectasis and potential airspace disease. 2. No pneumothorax. ) Procedures - Thoracentesis Preparation: Consent obtained, Sitting Technique: Catheter over needle, Right, Ultrasound used Fluid: Clear, Sent for cell count, Sent for gram stain, Sent for culture, Sent for pH, Sent for LDH, Sent fluid:serum LDH, Sent fluid:serum protein, Sent for cytology Aftercare: CXR obtained, No pneumo, No complications, Patient tolerated well, Dressing applied PD MEDICAL DECISION MAKING - ED course Complexity details: reviewed results, re-evaluated patient, considered differential, d/w patient ED course: 59-year-old female with a large right-sided pleural effusion. CAT scan was performed and does not appear to be loculated. Thoracentesis was then performed. Fluid sent for lab analysis. The send out test will be followed up by her doctor Dr. Tobias. Patient feels much better. Her pain is improved. Her breathing is much easier. 2.5 L were removed. Patient counseled regarding signs and symptoms for which I believe and urgent re-evaluation would be necessary. Patient with good understanding of and agreement to plan and is comfortable going home at this time This document was made in part using voice recognition software. While efforts are made to proofread this document, sound alike and grammatical errors may occur. Departure - Departure Disposition: 01 Home, Self Care Clinical Impression: Pleural effusion Condition: Good Instructions: ED Effusion Pleural Follow-Up: BRYAN TOBIAS MD [Primary Care Provider] - Within 1 week Comments: Increase your Lasix to 40 mg once a day continue to your Spironolactone at 100 mg daily. Return if you worsen. Follow-up with Dr. Tobias for your test results from the pleural effusion fluid that we sent to the lab. Discharge Date/Time: 12/28/19 13:43
[2019-12-28] MEDS ORDERED: IOVERSOL 320 100 ML VIAL IVP ONE ×2 (10:47→12:16)
[2019-12-28 11:00] LABS: BASOPHILS # (AUTO) 0.1 10^3/uL (0.0-0.1); BASOPHILS % (AUTO) 1.1 %; EOSINOPHILS # (AUTO) 0.1 10^3/uL (0.0-0.7); HGB - HEMOGLOBIN 11.6 g/dL (12.0-16.0); LYMPHOCYTES # (AUTO) 1.5 10^3/uL (1.5-3.5); LYMPHOCYTES % (AUTO) 23.3 %; MEAN CORPUSCULAR HEMOGLOBIN 25.4 pg (27.0-31.0); MEAN CORPUSCULAR HGB CONC 29.4 g/dL (32.0-36.0); MEAN CORPUSCULAR VOLUME 86.6 fL (81.0-99.0); MEAN PLATELET VOLUME 8.6 fL (7.9-10.8); MONOCYTES # (AUTO) 0.6 10^3/uL (0.0-1.0); NEUTROPHILS # (AUTO) 4.2 10^3/uL (1.5-6.6); NEUTROPHILS % (AUTO) 64.3 %; PLT - PLATELET COUNT 341 10^3/uL (130-450); RED BLOOD COUNT 4.56 10^6/uL (4.20-5.40); WHITE BLOOD COUNT 6.6 x10^3/uL (4.8-10.8)
[2019-12-28 11:08] LABS: INR 1.4 (0.8-1.2); PT - PROTHROMBIN TIME 15.3 secs (9.9-12.6)
[2019-12-28 11:14] LABS: ALBUMIN 4.8 g/dL (3.2-5.5); ALBUMIN/GLOBULIN RATIO 1.4 (1.0-2.2); BILIRUBIN,TOTAL 0.7 mg/dL (0.2-1.0); CALCIUM 9.5 mg/dL (8.5-10.3); CREATININE 0.7 mg/dL (0.4-1.0); TOTAL PROTEIN 8.3 g/dL (6.7-8.2)
[2019-12-28 11:15] LABS: PARTIAL THROMBOPLASTIN TIME 33.8 secs (24.9-33.3)
[2019-12-28 11:23] LABS: RBC MORPHOLOGY (MULTIPLE) 4+ ANISOCYTOSIS (NORMAL)
[2019-12-28] MEDS ORDERED: LORazepam 2 MG/ML VIAL IVP STA (12:30)
--- NOTE | 2019-12-28 13:23 | XRAY Report ---
Reason: s/p thoracentesis Procedure Date: 12/28/2019 Accession Number: [id number] / [id number] Procedure: XR - Chest 1 View X-Ray CPT Code: 37295 Final Report FULL RESULT: EXAM: CHEST RADIOGRAPHY EXAM DATE: 12/28/2019 12:57 PM. CLINICAL HISTORY: S/p thoracentesis. COMPARISON: CHEST 2 VIEW 12/27/2019 12:27 PM CHEST 1 VIEW 02/11/2019 6:03 PM. TECHNIQUE: 1 view. FINDINGS: Lungs/Pleura: Moderate right pleural effusion, previously enlarged. No pneumothorax. Mediastinum: Within exam limitations, the cardiomediastinal contour is normal. No mediastinal shift. Other: None. IMPRESSION: 1. Right pleural effusion has decreased compared to 12/27/2019, now moderate volume. Adjacent atelectasis and potential airspace disease. 2. No pneumothorax. RADIA
[2019-12-28 13:34] LABS: BF CLARITY CLEAR
[2019-12-28 13:35] LABS: BF COLOR YELLOW; BF SOURCE PLEURAL
[2019-12-28 13:42] VITALS: BP 106/68
--- NOTE | 2019-12-28 13:59 | CT Report ---
Reason: pleural effusion Procedure Date: 12/28/2019 Accession Number: [id number] / [id number] Procedure: CT - CHEST W CPT Code: Final Report FULL RESULT: EXAM: CT CHEST EXAM DATE: 12/28/2019 12:05 PM. CLINICAL HISTORY: Pleural effusion. COMPARISONS: CHEST 2 VIEW 12/27/2019 12:27 PM CHEST 1 VIEW 02/11/2019 6:03 PM. TECHNIQUE: Routine helical CT imaging was performed through the chest. IV contrast: None. Reconstructions: Coronal and sagittal. In accordance with CT protocol optimization, one or more of the following dose reduction techniques were utilized for this exam: automated exposure control, adjustment of mA and/or KV based on patient size, or use of iterative reconstructive technique. FINDINGS: Lungs/Pleura: Large right pleural effusion with displacement of the heart and mediastinum toward the left. Resulting compressive atelectasis of the majority of the right lung. Mediastinum: No focal discrete abnormally enlarged lymph nodes are seen. Bones: Superior endplate L2 Schmorl's node with a small amount of retropulsion is noted, this is thought to be well-healed. No fracture lines. There is about 5 mm of posterior retropulsion. Visualized Abdomen: Visualized abdomen shows cirrhotic liver configuration, short gastric varices at the GE junction. Other: None. IMPRESSION: 1. Large right pleural effusion with displacement of the heart and mediastinum toward the left. Resulting compressive atelectasis of the majority of the right lung. 2. Superior endplate L2 Schmorl's node appears well healed with about 5 mm of posterior retropulsion. 3. In the abdomen, liver shows a cirrhotic configuration with short gastric varices at the GE junction. RADIA
[2019-12-28 14:34] LABS: CC,BF RBC < 3000 /mm^3
== END 2019-12-28 13:43 | disposition home or self-care (01) ==
LOC: ED 09:57
DX: J90 Pleural effusion, not elsewhere classified (principal); F17.200 Nicotine dependence, unspecified, uncomplicated; K74.60 Unspecified cirrhosis of liver
CPT/HCPCS: 32555; 36415; 71045; 71260; 80053; 81599; 82042; 82247; 83615; 83690; 84157; 85025; 85610; 85730; 87070; 87205; 89051; 99284; A9270; J2060; Q9967

== ENCOUNTER 2020-01-03 14:47 | Outpatient (CLI) | payer MEDICAID | END 2020-01-03 14:48 | disposition home or self-care (01) | LOC: LAB 14:47 | PROVIDERS: ATTEND Family Medicine | DX: J90 Pleural effusion, not elsewhere classified (principal) | CPT/HCPCS: 36415; 83615 ==

== ENCOUNTER 2020-01-10 13:17 | Outpatient (CLI) | payer MEDICAID | END 2020-01-10 13:18 | disposition critical access hospital (66) | LOC: EMS 13:17 | PROVIDERS: ATTEND Surgery | DX: R07.81 Pleurodynia (principal); M79.674 Pain in right toe(s); Z72.89 Other problems related to lifestyle | CPT/HCPCS: A0425; A0429; A0999 ==

== ENCOUNTER 2020-01-10 13:25 | Emergency (ER) | payer MEDICAID ==
--- NOTE | 2020-01-10 13:44 | ED Physician Documentation ---
History of Present Illness - Stated complaint Stated Complaint: HBD - Chief complaint Chief Complaint: General - History obtained from History obtained from: Patient (Patient is a 59 yo w/ pmh of alcoholism and liver disease among multiple other chronic medical conditions who presents today via EMS for "pain all over" and "I don't feel good. " She reports right rib pain and a contusion and pain on the left foot. She is not sure how she injured her foot. She denies fever/chills, cough or URI sx, chest pain, dyspnea, abd pain, n/v/d. Pt admits to alcohol intoxication.) Review of Systems Unable to obtain: Confused (Pt is intoxicated, ROS unreliable) Constitutional: reports: Reviewed and negative Eyes: reports: Reviewed and negative Ears: reports: Reviewed and negative Nose: reports: Reviewed and negative Throat: reports: Reviewed and negative Cardiac: reports: Reviewed and negative Respiratory: reports: Reviewed and negative, Other ("I have pneumonia") GI: reports: Abdominal Pain, Abdominal Swelling, Nausea, Vomiting. denies: Constipation, Diarrhea, Hematemesis, Bloody / black stool : reports: Reviewed and negative Skin: reports: Reviewed and negative Musculoskeletal: reports: Extremity pain (left foot pain). denies: Extremity swelling Neurologic: reports: Confused, Altered mental status. 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 07/13/18 02/12/19 24,000 Units Capsule] Multivitamin [Multiple Vitamins] 1 each PO DAILY #10 tablet 09/22/18 02/12/19 Spironolactone [Aldactone] 25 mg PO BID 12/06/18 02/12/19 Naloxone HCl [Narcan] 1 spray ALLI PRN PRN 02/12/19 02/12/19 Magnesium Oxide [Mag Ox] 400 mg PO BIDWM #60 tablet 02/14/19 Propranolol [Inderal] 10 mg PO BID #60 tablet 02/14/19 Thiamine [Vitamin B-1] 100 mg PO DAILY #30 tablet 02/14/19 Furosemide [Lasix] 20 mg PO DAILY #14 tablet 03/03/19 Pantoprazole [Protonix] 40 mg PO BID #30 tablet 03/03/19 Ferrous Sulfate 325 mg PO DAILY #30 tablet 10/10/19 Furosemide [Lasix] 20 mg PO DAILY #30 tablet 12/07/19 - Allergies Allergies/Adverse Reactions: Allergies Allergy/AdvReac Type Severity Reaction Status Date / Time ketorolac tromethamine * Allergy Severe Hives Verified 01/10/20 13:40 [From Toradol] - Social History Does the pt smoke?: Yes Smoking Status: Current every day smoker Does the pt drink ETOH?: Yes Does the pt have substance abuse?: No - Immunizations Immunizations are current?: No Immunizations: TDAP >10years/unknown - POLST Patient has POLST: No POLST Status: Full Code PD ED PE NORMAL - Vitals Vital signs reviewed: Yes - General General: No acute distress, Well developed/nourished, Other (alert, oriented to self and town. intoxicated) - HEENT HEENT: Atraumatic, PERRL, EOMI, Moist mucous membranes - Cardiac Cardiac: RRR, No murmur, No gallop, No rub - Respiratory Respiratory: No respiratory distress, Clear bilaterally (dimnished right lower lung) - Abdomen Abdomen: Normal bowel sounds, Soft, Non tender, Other (slight distention) - Derm Derm: Normal color, Warm and dry, No rash - Extremities Extremities: Other (contusion and mild swelling around left great toe, tender) - Neuro Neuro: No motor deficit, No sensory deficit, Other (intoxicated) Eye Opening: Spontaneous Motor: Obeys Commands Verbal: Confused GCS Score: 14 Results - Vitals Vitals: Vital Signs - 24 hr 01/10/20 01/10/20 01/10/20 13:35 15:27 17:40 Temperature 36.5 C 36.4 C L Heart Rate 89 97 111 H Respiratory 20 20 20 Rate Blood Pressure 133/83 H 112/84 H 129/66 O2 Saturation 95 96 94 Oxygen O2 Source Room air - Labs Labs: Laboratory Tests 01/10/20 01/10/20 01/10/20 14:04 14:21 14:21 WBC 7.5 RBC 4.63 Hgb 12.1 Hct 38.2 MCV 82.5 MCH 26.1 L MCHC 31.7 L RDW 23.3 H Plt Count 205 MPV 8.9 Neut # (Auto) 5.3 Lymph # (Auto) 1.7 [place] # (Auto) 0.4 Eos # (Auto) 0.1 Baso # (Auto) 0.1 Absolute Nucleated RBC 0.00 Nucleated RBC % 0.0 PT INR Sodium 137 Potassium 3.9 Chloride 98 L Carbon Dioxide 18 L Anion Gap 21.0 H BUN 7 Creatinine 0.5 Estimated GFR (MDRD) 127 Glucose 89 Calcium 8.5 Total Bilirubin 1.0 AST 62 H ALT 29 Alkaline Phosphatase 166 H Ammonia Total Protein 8.0 Albumin 4.4 Globulin 3.6 Albumin/Globulin Ratio 1.2 Lipase 105 H Urine Color YELLOW Urine Clarity CLEAR Urine pH 6.0 Ur Specific [place] <=1.005 Urine Protein NEGATIVE Urine Glucose (UA) NEGATIVE Urine Ketones TRACE Urine Occult Blood LARGE H Urine Nitrite NEGATIVE Urine Bilirubin NEGATIVE Urine Urobilinogen 0.2 (NORMAL) Ur Leukocyte Esterase NEGATIVE Urine RBC TNTC H Urine WBC 0-3 Ur Squamous Epith Cells NONE SEEN Urine Bacteria None Seen Ur Microscopic Review INDICATED Urine Culture Comments NOT INDICATED Ethyl Alcohol 444.7 01/10/20 01/10/20 14:21 14:46 WBC RBC Hgb Hct MCV MCH MCHC RDW Plt Count MPV Neut # (Auto) Lymph # (Auto) [place] # (Auto) Eos # (Auto) Baso # (Auto) Absolute Nucleated RBC Nucleated RBC % PT 13.0 H INR 1.1 Sodium Potassium Chloride Carbon Dioxide Anion Gap BUN Creatinine Estimated GFR (MDRD) Glucose Calcium Total Bilirubin AST ALT Alkaline Phosphatase Ammonia 29.6 Total Protein Albumin Globulin Albumin/Globulin Ratio Lipase Urine Color Urine Clarity Urine pH Ur Specific [place] Urine Protein Urine Glucose (UA) Urine Ketones Urine Occult Blood Urine Nitrite Urine Bilirubin Urine Urobilinogen Ur Leukocyte Esterase Urine RBC Urine WBC Ur Squamous Epith Cells Urine Bacteria Ur Microscopic Review Urine Culture Comments Ethyl Alcohol PD MEDICAL DECISION MAKING - ED course Complexity details: reviewed old records, reviewed results, re-evaluated patient, considered differential, d/w patient ED course: Patient presented generally feeling unwell. She reported to me a hx/o liver disease and initially denied alcohol use. Given confusion, and AMS workup was pursued which indicated patient was intoxicated. I obtained an xray due to recent pleural effusion and also right rib pain. NO acute rib findings but pleural effusion did increase from her last visit. She is not short of breath however and is not hypoxic on exam. She had a contusion and pain around the left great toe and this was also xray'd and negative for fracture. Patient rested in the ED for several hours until clinically sober, ambulatory, and tolerating po. She is safe for home discharge. Encouraged alcohol cessation. Advised fup with PCP in 1-2 weeks and consider re-imaging of chest to monitor pleural effusion. She may need a thoracentesis again n the future but it is not indicated today. Departure - Departure Disposition: 01 Home, Self Care Clinical Impression: Alcoholism /alcohol abuse, Pleural effusion Alcohol intoxication Qualifiers: Complication of substance-induced condition: uncomplicated Qualified Code(s): F10.920 - Alcohol use, unspecified with intoxication, uncomplicated Contusion of left foot including toes Qualifiers: Encounter type: initial encounter Qualified Code(s): S90.32XA - Contusion of left foot, initial encounter Condition: Good Record reviewed to determine appropriate education?: Yes Instructions: ED Alcohol Intoxication, ED Contusion Lower Extr Ch Comments: You presented to the ER today with generalized pain as well as alcohol intoxicat ion. You have some bruises on the left foot and some discomfort on the right ribs. We xray'd these areas and there were no fractures. For the contusions you may apply a cool compress and take tylenol if needed. You do have an increase in the fluid in the right lung. It is possible it will need to be drained again in the future. Please follow up with your primary doctor in the next 1-2 weeks for re-evaluation. Return at anytime if you feel shortness of breath or chest pain. Please refrain from alcohol use. Discharge Date/Time: 01/10/20 17:53
[2020-01-10 14:08] LABS: BILIRUBIN,URINE NEGATIVE (NEGATIVE); GLUCOSE, URINE (UA) NEGATIVE (NEGATIVE); KETONES,URINE (UA) TRACE mg/dL (NEGATIVE); LEUKOCYTE ESTERASE, URINE NEGATIVE (NEGATIVE); NITRITE,URINE NEGATIVE (NEGATIVE); OCCULT BLOOD,URINE LARGE (NEGATIVE); PROTEIN,URINE NEGATIVE (NEGATIVE); UROBILINOGEN,URINE 0.2 (NORMAL) E.U./dL (NORMAL)
[2020-01-10 14:11] LABS: CLARITY,URINE CLEAR (CLEAR)
[2020-01-10 14:17] LABS: BACTERIA,URINE None Seen /HPF (None Seen); RBC,URINE TNTC /HPF (0-5); SQUAMOUS EPITHELIAL CELL,UR NONE SEEN (<= Few)
--- NOTE | 2020-01-10 14:23 | XRAY Report ---
Reason: COUGH Procedure Date: 01/10/2020 Accession Number: [id number] / [id number] Procedure: XR - Chest 1 View X-Ray CPT Code: 08956 Final Report FULL RESULT: EXAM: CHEST RADIOGRAPHY EXAM DATE: 01/10/2020 02:17 PM. CLINICAL HISTORY: COUGH. COMPARISON: CHEST 1 VIEW 12/28/2019 12:57 PM. TECHNIQUE: 1 view. FINDINGS: Lungs/Pleura: Large right pleural effusion at least 50% of lung volume. Underlying infiltrate or atelectasis. Left lung normally aerated. Mediastinum: Within exam limitations, the cardiomediastinal contour is normal. Other: None. IMPRESSION: Increasing large right pleural effusion at least 50% of lung volume. RADIA
--- NOTE | 2020-01-10 14:24 | XRAY Report ---
Reason: unknown injury, contusion/swelling Procedure Date: 01/10/2020 Accession Number: [id number] / [id number] Procedure: XR - Foot 3 View LT CPT Code: Final Report FULL RESULT: EXAM: LEFT FOOT RADIOGRAPHY EXAM DATE: 01/10/2020 02:17 PM. CLINICAL HISTORY: Unknown injury, contusion/swelling. COMPARISON: None. TECHNIQUE: 3 views. FINDINGS: Bones: Normal. No fractures or bone lesions. Joints: First [place] PD osteophyte, joint space narrowing, subchondral sclerosis. Soft Tissues: Normal. No soft tissue swelling. IMPRESSION: No acute fracture RADIA
[2020-01-10 14:32] LABS: BASOPHILS # (AUTO) 0.1 10^3/uL (0.0-0.1); BASOPHILS % (AUTO) 0.8 %; EOSINOPHILS # (AUTO) 0.1 10^3/uL (0.0-0.7); EOSINOPHILS % (AUTO) 0.7 %; HGB - HEMOGLOBIN 12.1 g/dL (12.0-16.0); LYMPHOCYTES # (AUTO) 1.7 10^3/uL (1.5-3.5); MEAN CORPUSCULAR HEMOGLOBIN 26.1 pg (27.0-31.0); MEAN CORPUSCULAR HGB CONC 31.7 g/dL (32.0-36.0); MEAN CORPUSCULAR VOLUME 82.5 fL (81.0-99.0); MEAN PLATELET VOLUME 8.9 fL (7.9-10.8); MONOCYTES # (AUTO) 0.4 10^3/uL (0.0-1.0); MONOCYTES % (AUTO) 5.1 %; NEUTROPHILS # (AUTO) 5.3 10^3/uL (1.5-6.6); NEUTROPHILS % (AUTO) 70.1 %; PLT - PLATELET COUNT 205 10^3/uL (130-450); RED BLOOD COUNT 4.63 10^6/uL (4.20-5.40); RED CELL DISTRIBUTION WIDTH 23.3 % (12.0-15.0); WHITE BLOOD COUNT 7.5 x10^3/uL (4.8-10.8)
[2020-01-10 14:50] LABS: ALBUMIN 4.4 g/dL (3.2-5.5); ALBUMIN/GLOBULIN RATIO 1.2 (1.0-2.2); CALCIUM 8.5 mg/dL (8.5-10.3); CREATININE 0.5 mg/dL (0.4-1.0)
[2020-01-10 15:00] LABS: INR 1.1 (0.8-1.2)
[2020-01-10] MEDS ORDERED: HYDROcod/ACETAM 5/325 MG TABLET PO STA (15:54)
[2020-01-10 17:43] VITALS: BP 129/66
== END 2020-01-10 17:53 | disposition home or self-care (01) ==
LOC: EDUNIT# → ED 13:25
DX: J90 Pleural effusion, not elsewhere classified (principal); S90.32XA Contusion of left foot, initial encounter; X58.XXXA Exposure to other specified factors, initial encounter; R07.81 Pleurodynia; F10.129 Alcohol abuse with intoxication, unspecified; K74.60 Unspecified cirrhosis of liver; F17.200 Nicotine dependence, unspecified, uncomplicated
CPT/HCPCS: 36415; 71045; 73630; 80053; 80320; 81001; 82140; 83690; 85025; 85610; 99283; 99284; A9270; 81003; 87086

== ENCOUNTER 2020-01-11 21:29 | Emergency (ER) | payer MEDICAID ==
[2020-01-11 22:00] LABS: BASOPHILS # (AUTO) 0.1 10^3/uL (0.0-0.1); BASOPHILS % (AUTO) 0.7 %; EOSINOPHILS % (AUTO) 0.3 %; HGB - HEMOGLOBIN 11.6 g/dL (12.0-16.0); LYMPHOCYTES # (AUTO) 2.7 10^3/uL (1.5-3.5); LYMPHOCYTES % (AUTO) 38.5 %; MEAN CORPUSCULAR HEMOGLOBIN 26.1 pg (27.0-31.0); MEAN CORPUSCULAR HGB CONC 31.4 g/dL (32.0-36.0); MEAN CORPUSCULAR VOLUME 83.3 fL (81.0-99.0); MEAN PLATELET VOLUME 8.7 fL (7.9-10.8); MONOCYTES # (AUTO) 0.3 10^3/uL (0.0-1.0); MONOCYTES % (AUTO) 4.5 %; NEUTROPHILS # (AUTO) 3.9 10^3/uL (1.5-6.6); NEUTROPHILS % (AUTO) 55.9 %; PLT - PLATELET COUNT 166 10^3/uL (130-450); RED BLOOD COUNT 4.44 10^6/uL (4.20-5.40); RED CELL DISTRIBUTION WIDTH 22.6 % (12.0-15.0); WHITE BLOOD COUNT 6.9 x10^3/uL (4.8-10.8)
[2020-01-11 22:05] LABS: INR 1.2 (0.8-1.2); PT - PROTHROMBIN TIME 13.4 secs (9.9-12.6)
[2020-01-11 22:12] LABS: PARTIAL THROMBOPLASTIN TIME 31.6 secs (24.9-33.3)
[2020-01-11 22:18] LABS: PLATELET ESTIMATE, MANUAL NORMAL (130-450,000) (NORMAL); PLATELET MORPHOLOGY NORMAL APPEARANCE (NORMAL)
[2020-01-11 22:25] LABS: ALBUMIN 3.9 g/dL (3.2-5.5); ALBUMIN/GLOBULIN RATIO 1.1 (1.0-2.2); BILIRUBIN,TOTAL 0.8 mg/dL (0.2-1.0); CALCIUM 8.3 mg/dL (8.5-10.3); CREATININE 0.4 mg/dL (0.4-1.0); TOTAL PROTEIN 7.5 g/dL (6.7-8.2)
--- NOTE | 2020-01-11 22:35 | ED Physician Documentation ---
History of Present Illness - Stated complaint Stated Complaint: SOA/RIB PX/TOE PX - Chief complaint Chief Complaint: Resp - History obtained from History obtained from: Patient - History of Present Illness Timing: Other (multiple c/o over various time frames) Pain level now: 8 Improved by: rest Worsened by: movement, palpation (left foot, coccyx) - Additonal information Additional information: patient has multiple c/o. T+R yesterday for similar c/o. c/o dyspnea, gradually worsening over days, possibly weeks. She tells me "I have pneumonia", although in further discussion, she explains that a few weeks ago she was treated inpatient at [facility]. She says she was discharged "with nothing" (unclear if she means without medications or a diagnosis). She says she then called someone at [facility] and was told her diagnosis was pneumonia. Patient says she then called her PMD and was prescribed "a strong antibiotic for a week", which she completed. After all of this explanation, I ask her why she says she currently has pneumonia and she says because she is short of breath. She acknowledges that this has also been caused by fluid building up on her lung without pneumonia. She also says she fell last night and hurt her "tailbone" and her left foot. I explained that she was evaluated in this ED yesterday early afternoon and had xrays of the left foot and the chest (ED MD note indicates the cxr was done partially to evaluate c/o right rib pain, as well as reevaluation of effusion). Thus, I inquired as to why she was here during the early afternoon yesterday with similar pain c/o (except now also c/o "tailbone" pain) if she fell last night. She cannot provide a cogent explanation. She denies fever, abdominal pain. She does c/o "pain all over" and requests "can I please have something for the pain". I remarked to her that her records ([facility] form) indicate regular prescriptions from PMD for oxycodone and I ask when she last took a dose. She initially tells me "I'm out of those". When I remark that she should not be out of a regularly prescribed controlled substance medication such as this, she says she is not out but that she didn't take any today because she drank alcohol and knows not to mix the alcohol with the opiate medication. Review of Systems Constitutional: denies: Fever, Chills, Sweats Cardiac: reports: Chest pain / pressure (right chest wall pain). denies: Palpitations, Pedal edema Respiratory: reports: Dyspnea. 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 07/13/18 02/12/19 24,000 Units Capsule] Multivitamin [Multiple Vitamins] 1 each PO DAILY #10 tablet 09/22/18 02/12/19 Spironolactone [Aldactone] 25 mg PO BID 12/06/18 02/12/19 Naloxone HCl [Narcan] 1 spray ALLI PRN PRN 02/12/19 02/12/19 Magnesium Oxide [Mag Ox] 400 mg PO BIDWM #60 tablet 02/14/19 Propranolol [Inderal] 10 mg PO BID #60 tablet 02/14/19 Thiamine [Vitamin B-1] 100 mg PO DAILY #30 tablet 02/14/19 Furosemide [Lasix] 20 mg PO DAILY #14 tablet 03/03/19 Pantoprazole [Protonix] 40 mg PO BID #30 tablet 03/03/19 Ferrous Sulfate 325 mg PO DAILY #30 tablet 10/10/19 Furosemide [Lasix] 20 mg PO DAILY #30 tablet 12/07/19 - Allergies Allergies/Adverse Reactions: Allergies Allergy/AdvReac Type Severity Reaction Status Date / Time ketorolac tromethamine * Allergy Severe Hives Verified 01/11/20 21:38 [From Toradol] - Social History Does the pt smoke?: Yes Smoking Status: Current every day smoker Does the pt drink ETOH?: Yes Does the pt have substance abuse?: No - Immunizations Immunizations are current?: No Immunizations: TDAP >10years/unknown - POLST Patient has POLST: No POLST Status: Full Code PD ED PE NORMAL - Vitals Vital signs reviewed: Yes - General General: Alert and oriented X 3, No acute distress, Well developed/nourished, Other (speaking in long, full sentences) - HEENT HEENT: Moist mucous membranes - Neck Neck: Supple, no meningeal sign - Cardiac Cardiac: No murmur, No gallop, No rub - Respiratory Respiratory: No respiratory distress, Other (decreased breath sounds right hemithroax about assisted from base; left lung sounds are clear with good air movement) - Abdomen Abdomen: Soft, Non tender - Derm Derm: Normal color, Warm and dry - Extremities Extremities: No deformity, Normal ROM s pain, No edema, Other (mild bruising left foot surrounding first MCP and medial aspect of forefoot) PD ED PE EXPANDED - Cardiac Cardiac: Tachy, Regular Rhythm - Back Back: Other (TTP directly over coccyx without bruising or crepitus. There is faint bruising noted posteriorly of proximal-most aspects thighs) Results - Vitals Vitals: Vital Signs - 24 hr 01/11/20 01/11/20 01/11/20 21:33 21:44 21:50 Temperature 36.7 C Heart Rate 108 H Respiratory 18 17 Rate Blood Pressure 147/96 H O2 Saturation 95 01/11/20 01/11/20 01/11/20 22:02 22:34 23:03 Temperature Heart Rate Respiratory 18 19 17 Rate Blood Pressure O2 Saturation 96 01/11/20 01/12/20 01/12/20 23:10 00:02 00:11 Temperature Heart Rate 106 H Respiratory 17 17 18 Rate Blood Pressure 125/69 O2 Saturation 97 Oxygen O2 Source Nasal cannula Oxygen Flow Rate 2 - Labs Labs: Laboratory Tests 01/11/20 01/11/20 01/11/20 21:53 21:53 21:53 WBC 6.9 RBC 4.44 Hgb 11.6 L Hct 37.0 MCV 83.3 MCH 26.1 L MCHC 31.4 L RDW 22.6 H Plt Count 166 MPV 8.7 Neut # (Auto) 3.9 Lymph # (Auto) 2.7 [place] # (Auto) 0.3 Eos # (Auto) 0.0 Baso # (Auto) 0.1 Absolute Nucleated RBC 0.00 Nucleated RBC % 0.0 Manual Slide Review Indicated Platelet Estimate NORMAL (130-450,000) Platelet Morphology NORMAL APPEARANCE RBC Morph Micro Appear 1+ OVALOCYTES PT 13.4 H INR 1.2 APTT 31.6 Sodium 137 Potassium 4.2 Chloride 100 L Carbon Dioxide 21 Anion Gap 16.0 H BUN 6 Creatinine 0.4 Estimated GFR (MDRD) 164 Glucose 117 H Calcium 8.3 L Total Bilirubin 0.8 AST 69 H ALT 27 Alkaline Phosphatase 162 H Total Protein 7.5 Albumin 3.9 Globulin 3.6 Albumin/Globulin Ratio 1.1 Lipase 95 H Ethyl Alcohol 311.4 - Rads (name of study) cxr Radiology: Prelim report reviewed, See rad report sacrum/coccyx xrays Radiology: Prelim report reviewed, See rad report pelvis xray Radiology: Prelim report reviewed, See rad report PD MEDICAL DECISION MAKING - ED course Complexity details: reviewed old records, reviewed results, re-evaluated patient, considered differential, d/w patient ED course: Patient says she cannot take tylenol due to liver disease. She claims to have never taken ibuprofen (including when I mention Advil, Motrin). However, she claims allergy to toradol, and has h/o varices mentioned on her [facility] form. Furthermore, I explained to her why I would not feel narcotic/opiate medication would be appropriate at this time for the same reason she gave me during HPI for not taking them at home: her high blood ethanol level. I offered ice packs for the foot and coccyx, which she declines. On reevaluation, I discussed the results with patient. The CXR does not appear to have significant change from previous (appears marginally improved to me). She continues to talk in long, full sentences with no respiratory distress. Her pelvis/coccyx xrays are unremarkable. Her other tests do not reveal any new/worse/emergently concerning findings. She seemed to be reassured with these results. She continued to ask for pain medication. I agreed with a single dose of 5mg oxycodone and this was given. She was able to ambulate in ED on room air without any respiratory distress/difficulty Departure - Departure Disposition: 01 Home, Self Care Clinical Impression: Pleural effusion Alcohol intoxication Qualifiers: Complication of substance-induced condition: uncomplicated Qualified Code(s): F10.920 - Alcohol use, unspecified with intoxication, uncomplicated Coccygeal contusion Qualifiers: Encounter type: initial encounter Qualified Code(s): S30.0XXA - Contusion of lower back and pelvis, initial encounter Condition: Good Instructions: ED Contusion Back, ED Alcohol Intoxication, ED Effusion Pleural Discharge Date/Time: 01/12/20 01:35
--- NOTE | 2020-01-11 23:39 | XRAY Report ---
Reason: dyspnea, decreased right breath sounds Procedure Date: 01/11/2020 Accession Number: [id number] / [id number] Procedure: XR - Chest 2 View X-Ray CPT Code: 37284 Final Report FULL RESULT: EXAM: CHEST RADIOGRAPHY EXAM DATE: 01/11/2020 10:51 PM. CLINICAL HISTORY: Dyspnea, decreased right breath sounds. COMPARISON: CHEST 2 VIEW 01/10/2020 1:53 PM. TECHNIQUE: 2 views. FINDINGS: Lungs/Pleura: Moderate to large right pleural effusion. The left lung is clear. No pneumothorax. Mediastinum: Heart and mediastinal contours are unremarkable. Other: None. IMPRESSION: Moderate to large right pleural effusion. RADIA
--- NOTE | 2020-01-11 23:40 | XRAY Report ---
Reason: fall, pain, bruising Procedure Date: 01/11/2020 Accession Number: [id number] / [id number] Procedure: XR - Pelvis 1 View CPT Code: Final Report FULL RESULT: EXAM: PELVIS RADIOGRAPHY EXAM DATE: 01/11/2020 10:51 PM. CLINICAL HISTORY: Fall, pain, bruising. COMPARISON: XR PELVIS COMPLETE 3 VIEWS 06/24/2011 5:06 PM. TECHNIQUE: 1 view. FINDINGS: Bones: Normal. No fracture or bone lesion. Joints: The visualized hip, pubis symphysis, and sacroiliac joints are preserved. No subluxation. Soft Tissues: Normal. No soft tissue swelling. IMPRESSION: Normal pelvis radiography. RADIA
--- NOTE | 2020-01-11 23:41 | XRAY Report ---
Reason: fall, tenderness Procedure Date: 01/11/2020 Accession Number: [id number] / [id number] Procedure: XR - Sacrum/Coccyx CPT Code: Final Report FULL RESULT: EXAM: SACRUM AND COCCYX RADIOGRAPHY EXAM DATE: 01/11/2020 10:51 PM. HISTORY: Fall, tenderness. COMPARISONS: XR PELVIS COMPLETE 3 VIEWS 06/24/2011 5:06 PM. TECHNIQUE: 2 views. FINDINGS: Alignment: Normal. The sacrum and coccyx are normally aligned. Bones: Normal. No fracture or bone lesion. Joints: Normal. The sacroiliac joints and visualized hips are within normal limits. Soft Tissues: Unremarkable. IMPRESSION: Normal sacrum and coccyx radiography. RADIA
[2020-01-12 00:03] VITALS: BP 125/69
[2020-01-12] MEDS ORDERED: oxyCODONE 5 MG TABLET PO STA (00:20)
== END 2020-01-12 01:35 | disposition home or self-care (01) ==
LOC: ED 21:29
DX: J90 Pleural effusion, not elsewhere classified (principal); F10.129 Alcohol abuse with intoxication, unspecified; S30.0XXA Contusion of lower back and pelvis, initial encounter; S90.32XA Contusion of left foot, initial encounter; W19.XXXA Unspecified fall, initial encounter; F17.200 Nicotine dependence, unspecified, uncomplicated
CPT/HCPCS: 36415; 71046; 72170; 72220; 80053; 80320; 83690; 85025; 85610; 85730; 99284; A9270

== ENCOUNTER 2020-01-13 12:24 | Emergency (ER) | payer MEDICAID ==
[2020-01-13] MEDS ORDERED: SODIUM CHLORIDE 0.9% 1,000 ML IV ONE (12:50)
[2020-01-13 13:08] LABS: BASOPHILS # (AUTO) 0.1 10^3/uL (0.0-0.1); BASOPHILS % (AUTO) 0.8 %; EOSINOPHILS % (AUTO) 0.5 %; HGB - HEMOGLOBIN 11.8 g/dL (12.0-16.0); LYMPHOCYTES # (AUTO) 1.2 10^3/uL (1.5-3.5); LYMPHOCYTES % (AUTO) 19.5 %; MEAN CORPUSCULAR HEMOGLOBIN 26.5 pg (27.0-31.0); MEAN CORPUSCULAR HGB CONC 31.7 g/dL (32.0-36.0); MEAN CORPUSCULAR VOLUME 83.4 fL (81.0-99.0); MEAN PLATELET VOLUME 8.1 fL (7.9-10.8); MONOCYTES # (AUTO) 0.5 10^3/uL (0.0-1.0); MONOCYTES % (AUTO) 8.1 %; NEUTROPHILS # (AUTO) 4.5 10^3/uL (1.5-6.6); NEUTROPHILS % (AUTO) 70.8 %; PLT - PLATELET COUNT 112 10^3/uL (130-450); RED BLOOD COUNT 4.46 10^6/uL (4.20-5.40); RED CELL DISTRIBUTION WIDTH 22.2 % (12.0-15.0); WHITE BLOOD COUNT 6.3 x10^3/uL (4.8-10.8)
[2020-01-13] MEDS ORDERED: MORPHINE 2 MG/ML CARPUJECT IVP STA ×2 (13:17→14:38)
[2020-01-13] MEDS ORDERED: PANTOPRAZOLE 40 MG VIAL IV STA (13:17)
[2020-01-13] MEDS ORDERED: diazePAM INJ 5 MG/ML SYRINGE IVP STA (13:17)
[2020-01-13 13:18] LABS: INR 1.2 (0.8-1.2); PT - PROTHROMBIN TIME 13.7 secs (9.9-12.6)
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
[2020-01-13] MEDS ORDERED: ONDANSETRON 4 MG/2 ML VIAL IVP STA (13:30)
[2020-01-13 13:34] LABS: ALBUMIN 4.2 g/dL (3.2-5.5); ALBUMIN/GLOBULIN RATIO 1.2 (1.0-2.2); BILIRUBIN,TOTAL 1.1 mg/dL (0.2-1.0); CALCIUM 9.1 mg/dL (8.5-10.3); CREATININE 0.4 mg/dL (0.4-1.0); TOTAL PROTEIN 7.8 g/dL (6.7-8.2)
--- NOTE | 2020-01-13 13:53 | XRAY Report ---
Reason: chest pain Procedure Date: 01/13/2020 Accession Number: [id number] / [id number] Procedure: XR - Chest 1 View X-Ray CPT Code: 45703 Final Report FULL RESULT: EXAM: CHEST RADIOGRAPHY EXAM DATE: 01/13/2020 01:41 PM. CLINICAL HISTORY: Chest pain. COMPARISON: CHEST 2 VIEW 01/11/2020 10:51 PM. TECHNIQUE: 1 view. FINDINGS: Lungs/Pleura: Similar right mid to lower lung opacity adjusting moderate to large effusion and atelectasis and/or consolidation. Left lung is clear. No detectable pneumothorax. Mediastinum: Within exam limitations, the cardiomediastinal contour is normal. Other: None. IMPRESSION: 1. Similar moderate to large right pleural effusion and basal atelectasis and/or consolidation. RADIA
--- NOTE | 2020-01-13 15:29 | XRAY Report ---
Reason: chest pain Procedure Date: 01/13/2020 Accession Number: [id number] / [id number] Procedure: XR - Chest 1 View X-Ray CPT Code: 38770 Final Report FULL RESULT: EXAM: CHEST RADIOGRAPHY EXAM DATE: 01/13/2020 03:16 PM. CLINICAL HISTORY: Chest pain. Post thoracentesis. COMPARISON: CHEST 1 VIEW 01/13/2020 1:20 PM. TECHNIQUE: 1 view. FINDINGS: Lungs/Pleura: Modestly decreased right mid to lower lung opacity consistent with moderate to large effusion and atelectasis and/or consolidation. Probable small right apical pneumothorax measuring 6 mm. Left lung is clear. Mediastinum: Within exam limitations, the cardiomediastinal contour is normal. Other: None. IMPRESSION: 1. Modestly decreased moderate to large right pleural effusion and basal atelectasis and/or consolidation with probable small right apical pneumothorax status post thoracentesis. RADIA The call report notification system was initiated by Dr. Tru Clay at 03:21 PM on 01/13/2020. The above call report findings were discussed with Flor Tucker by Dr. Tru Clay at 03:27 PM on 01/13/2020.
[2020-01-13] MEDS ORDERED: ACETAMINOPHEN 325 MG TABLET PO STA (17:41)
--- NOTE | 2020-01-13 18:57 | XRAY Report ---
Reason: possible pneumothorax on prior cxr Procedure Date: 01/13/2020 Accession Number: [id number] / [id number] Procedure: XR - Chest 1 View X-Ray CPT Code: 22876 Final Report FULL RESULT: EXAM: CHEST RADIOGRAPHY EXAM DATE: 01/13/2020 06:46 PM. CLINICAL HISTORY: Possible pneumothorax on prior cxr. COMPARISON: CHEST 1 VIEW 01/13/2020 2:57 PM. TECHNIQUE: 1 view. FINDINGS: Lungs/Pleura: Persistent pleural line at the right apex compatible with small pneumothorax, with pleural separation of 9 mm. Stable moderate right pleural effusion with overlying atelectasis/infiltrate. Clear left lung with sharp costophrenic angle and no pneumothorax Mediastinum: Within exam limitations, the cardiomediastinal contour is normal. Other: None. IMPRESSION: Small right apical pneumothorax, slightly larger. RADIA
--- NOTE | 2020-01-13 19:31 | ED Physician Documentation ---
ED Addendum - Addendum Addendum: 01/13/20 19:29 Patient was signed out to me awaiting repeat chest x-ray. The repeat chest x- ray shows a slightly larger pneumothorax, but not large enough to require a chest tube. Discussed the case with Dr. Garcia, general surgery on-call. As the clinics are closed because of coronavirus, will bring the patient back to the emergency department tomorrow for a repeat chest x-ray. Patient counseled regarding signs and symptoms for which I believe and urgent re-evaluation would be necessary. Patient with good understanding of and agreement to plan and is comfortable going home at this time This document was made in part using voice recognition software. While efforts are made to proofread this document, sound alike and grammatical errors may occur. Departure - Departure Disposition: 01 Home, Self Care Clinical Impression: Pneumothorax on right Condition: Good Instructions: ED Pneumothorax Blunt Trauma Follow-Up: BRYAN TOBIAS MD [Primary Care Provider] - Within 3 Days Comments: Return to the emergency department tomorrow for another chest x-ray. If the pneumothorax is larger, we will need to place a chest tube. As of right now this should likely still resolve on its own.
[2020-01-13 19:33] VITALS: BP 114/72
== END 2020-01-13 19:40 | disposition home or self-care (01) ==
LOC: ED 12:24
DX: J90 Pleural effusion, not elsewhere classified (principal); J93.9 Pneumothorax, unspecified; F17.200 Nicotine dependence, unspecified, uncomplicated
CPT/HCPCS: 32554; 36415; 71045; 80053; 80320; 83690; 85025; 85610; 86850; 86900; 86901; 93005; 96361; 96374; 96375; 99285; A9270

== ENCOUNTER 2020-01-16 14:07 | Emergency (ER) | payer MEDICAID ==
--- NOTE | 2020-01-16 14:17 | ED Physician Documentation ---
<Sergei Alfaro - Last Filed: 01/16/20 19:56> PD HPI DYSPNEA - Stated complaint Stated Complaint: SOA PD PAST MEDICAL HISTORY - Present Medications Home Medications: Ambulatory Orders Medication Instructions Recorded Confirmed Lipase/Protease/Amylase [Bulmaro Rosario 1 each PO TIDWM #90 capsule. 07/13/18 02/12/19 24,000 Units Capsule] Multivitamin [Multiple Vitamins] 1 each PO DAILY #10 tablet 09/22/18 02/12/19 Spironolactone [Aldactone] 25 mg PO BID 12/06/18 02/12/19 Naloxone HCl [Narcan] 1 spray ALLI PRN PRN 02/12/19 02/12/19 Magnesium Oxide [Mag Ox] 400 mg PO BIDWM #60 tablet 02/14/19 Propranolol [Inderal] 10 mg PO BID #60 tablet 02/14/19 Thiamine [Vitamin B-1] 100 mg PO DAILY #30 tablet 02/14/19 Furosemide [Lasix] 20 mg PO DAILY #14 tablet 03/03/19 Pantoprazole [Protonix] 40 mg PO BID #30 tablet 03/03/19 Ferrous Sulfate 325 mg PO DAILY #30 tablet 10/10/19 Furosemide [Lasix] 20 mg PO DAILY #30 tablet 12/07/19 - Allergies Allergies/Adverse Reactions: Allergies Allergy/AdvReac Type Severity Reaction Status Date / Time ketorolac tromethamine * Allergy Severe Hives Verified 01/16/20 14:20 [From Toradol] PD MEDICAL DECISION MAKING - ED course Complexity details: other (19:30 patient signed out to me at shift change. I spoke with dr. johnson at [facility] in [place] who agreed to accept this patient. patient updated and agreeable to transfer. ) - Consults Consults: Other (19:[address] johnson at [facility] who will accept this patient. ) Departure - Departure Disposition: 02 Transfer Acute Care Hosp Clinical Impression: Pleural effusion Pneumothorax Qualifiers: Pneumothorax type: unspecified pneumothorax Qualified Code(s): J93.9 - Pneumothorax, unspecified Alcohol intoxication Qualifiers: Complication of substance-induced condition: with unspecified complication Qualified Code(s): F10.929 - Alcohol use, unspecified with intoxication, unspecified Condition: Stable Discharge Date/Time: 01/16/20 20:50 <Kartik Bose - Last Filed: 01/16/20 23:50> PD HPI DYSPNEA - History obtained from History obtained from: Patient - History of Present Illness Timing - onset: How many days ago (She has had 1 or 2 weeks of shortness of breath and pain in the chest associated with effusion and some cough. She was seen in the ER 3 days ago with the above symptoms and consented and had a thoracentesis done on the right to remove some of the fluid and improve her symptoms. Postprocedure she had a small pneumothorax that stayed the same or slightly larger over several hours. However was not large enough to need chest tube. She was discharged home to return the following day for another x-ray. She states she is continued with pain on breathing and dyspnea and lightheadedness over the past 3 days without much improvement. She states it was hurting more post thoracentesis than it was prior and has persisted. She called the office for a primary care follow-up and was directed to come to the ER) Timing - onset during: Other (increased pain and dyspnea onset after thoracentesis 3 days ago) Timing - duration: Days Timing - details: Abrupt onset, Still present Inciting event(s): Other (chronic pleural effusion and had small PTX post recent thoracentesis) Improved by: No: Rest Associated symptoms: Cough, Wheezing. No: Fever, Hemoptysis, Bilateral edema Similar symptoms before: Has not had sx before Recently seen: Emergency Dept Review of Systems Constitutional: reports: Myalgias, Fatigue. denies: Fever, Chills Nose: denies: Rhinorrhea / runny nose, Congestion Throat: denies: Sore throat Cardiac: reports: Chest pain / pressure. denies: Palpitations, Pedal edema, Calf pain Respiratory: reports: Dyspnea, Cough, Wheezing. denies: Hemoptysis GI: reports: Nausea. denies: Abdominal Pain, Vomiting, Diarrhea Skin: denies: Lesions Neurologic: reports: Generalized weakness. denies: Focal weakness, Numbness, Near syncope PD PAST MEDICAL HISTORY - Past Medical History Cardiovascular: Coronary artery disease, [place], Murmur Respiratory: Shortness of breath Neuro: Headaches, Migraines, Tremors Endocrine/Autoimmune: None GI: GERD, Pancreatitis, Hepatitis, Cirrhosis, Cholelithiasis, Other [place] OR [place] AUDITOR: None : Nocturia HEENT: Chronic sinusitis Psych: Depression, Anxiety, ADD/ADHD, Post traumatic stress disorder Musculoskeletal: Osteoarthritis, Chronic back pain Derm: None - Past Surgical History Past Surgical History: Yes General: Other Ortho: Other /[place] OR [place] AUDITOR: Tubal ligation, Breast implants HEENT: Other - Living Situation Living Situation: reports: With spouse/s.o. Living Arrangement: reports: At home - Social History Does the pt smoke?: Yes Smoking Status: Current every day smoker Does the pt drink ETOH?: Yes ETOH Use: Other (states last drink was earlier today) Does the pt have substance abuse?: No - Immunizations Immunizations are current?: No Immunizations: TDAP >10years/unknown - POLST Patient has POLST: No POLST Status: Full Code PD ED PE NORMAL - Vitals Vital signs reviewed: Yes - General General: Alert and oriented X 3, Well developed/nourished, Other (She appears uncomfortable with pleuritic pain and partial sentence dyspnea. Her oxygenation is good at 98% on room air. She is splinted movement and breathing for the right chest however.) - HEENT HEENT: Atraumatic, Pharynx benign - Neck Neck: Supple, no meningeal sign, No JVD - Cardiac Cardiac: RRR, No murmur - Respiratory Respiratory: No: Clear bilaterally (normal on left; seems mildly diminished on right at apex and base. No coarse sounds. ) - Abdomen Abdomen: Soft, Non tender, No organomegaly, Other (some shifting dullness c/w ascites. Not distended. ). No: Normal bowel sounds (diminished) - Female Female : Deferred - Rectal Rectal: Deferred - Back Back: No CVA TTP - Derm Derm: Normal color, Warm and dry - Extremities Extremities: No tenderness to palpate, No edema, No calf tenderness / cord - Neuro Neuro: Alert and oriented X 3, No motor deficit, Normal speech Results - Vitals Vitals: Vital Signs - 24 hr 01/16/20 01/16/20 01/16/20 14:09 15:30 17:00 Temperature 36 C L Heart Rate 103 H 94 98 Respiratory 24 23 12 Rate Blood Pressure 130/93 H 139/91 H 141/68 H O2 Saturation 98 98 95 01/16/20 19:18 Temperature Heart Rate 98 Respiratory 14 Rate Blood Pressure 121/83 H O2 Saturation 95 Oxygen O2 Source Room air - Labs Labs: Laboratory Tests 01/16/20 01/16/20 01/16/20 14:15 14:15 14:50 WBC 7.9 RBC 4.43 Hgb 12.0 Hct 37.3 MCV 84.2 MCH 27.1 MCHC 32.2 RDW 22.6 H Plt Count 116 L MPV 8.9 Neut # (Auto) 4.7 Lymph # (Auto) 2.3 [place] # (Auto) 0.7 Eos # (Auto) 0.1 Baso # (Auto) 0.0 Absolute Nucleated RBC 0.00 Nucleated RBC % 0.0 Manual Slide Review Indicated WBC Morphology NORMAL APPEARANCE Platelet Estimate DECREASED (<130,000) Platelet Morphology NORMAL APPEARANCE RBC Morph Micro Appear 1+ POLYCHROMASIA PT 13.8 H INR 1.2 APTT 30.4 Sodium 135 Potassium 4.0 Chloride 99 L Carbon Dioxide 23 Anion Gap 13.0 BUN 8 Creatinine 0.5 Estimated GFR (MDRD) 127 Glucose 112 H Calcium 8.8 Magnesium 2.0 Total Bilirubin 0.7 AST 89 H ALT 35 Alkaline Phosphatase 209 H Total Protein 7.4 Albumin 3.7 Globulin 3.7 Albumin/Globulin Ratio 1.0 Lipase 83 H Ethyl Alcohol 344.2 - Rads (name of study) chest xray Radiology: Prelim report reviewed (larger/marked pleural effusion. Increased/persistent PTX compared to 3 days prior. ), See rad report PD MEDICAL DECISION MAKING - ED course Complexity details: reviewed results (persistent PTX and large effusion. Pt stable with good vitals and sats. Prolonged ER course with consultation of Surgery and Hospitalist service here and then awaiting return call [facility] (waited 1-2 hours, then they called back and would wait for change of shift for Hospitalist service for them to return call regarding transfer, so was about 3 hours duration for that, but they do have beds and her GI is there, and she was there a month ago, so seeme wardetter disposition, and waited).), considered differential, d/w patient, d/w benefits consultant (d/w Dr. Gómez, surgery, who felt the patient would be better treated with medical approach on the effusion and PTX would resolve. I felt that this is 3 days after the PTX and is bigger with large effusion too, so would need drainage. He refers her then to facility to better treat her cirrhosis/etc. with GI as well. ) - Consults Consults: Consulted (name) (graves - ) Departure - Departure Record reviewed to determine appropriate education?: Yes
[2020-01-16] MEDS ORDERED: HYDROmorphone 1 MG/ML CARPUJECT IVP STA ×2 (14:37→15:54)
[2020-01-16] MEDS ORDERED: SODIUM CHLORIDE 0.9% 1,000 ML IV ONE (14:37)
[2020-01-16 14:45] LABS: BASOPHILS % (AUTO) 0.4 %; EOSINOPHILS # (AUTO) 0.1 10^3/uL (0.0-0.7); EOSINOPHILS % (AUTO) 1.6 %; LYMPHOCYTES # (AUTO) 2.3 10^3/uL (1.5-3.5); LYMPHOCYTES % (AUTO) 28.7 %; MEAN CORPUSCULAR HEMOGLOBIN 27.1 pg (27.0-31.0); MEAN CORPUSCULAR HGB CONC 32.2 g/dL (32.0-36.0); MEAN CORPUSCULAR VOLUME 84.2 fL (81.0-99.0); MEAN PLATELET VOLUME 8.9 fL (7.9-10.8); MONOCYTES # (AUTO) 0.7 10^3/uL (0.0-1.0); NEUTROPHILS # (AUTO) 4.7 10^3/uL (1.5-6.6); NEUTROPHILS % (AUTO) 59.9 %; PLT - PLATELET COUNT 116 10^3/uL (130-450); RED BLOOD COUNT 4.43 10^6/uL (4.20-5.40); RED CELL DISTRIBUTION WIDTH 22.6 % (12.0-15.0); WHITE BLOOD COUNT 7.9 x10^3/uL (4.8-10.8)
[2020-01-16 15:01] LABS: INR 1.2 (0.8-1.2); PT - PROTHROMBIN TIME 13.8 secs (9.9-12.6)
[2020-01-16 15:05] LABS: PLATELET ESTIMATE, MANUAL DECREASED (<130,000) (NORMAL); PLATELET MORPHOLOGY NORMAL APPEARANCE (NORMAL)
[2020-01-16 15:09] LABS: PARTIAL THROMBOPLASTIN TIME 30.4 secs (24.9-33.3)
[2020-01-16 15:14] LABS: ALBUMIN 3.7 g/dL (3.2-5.5); BILIRUBIN,TOTAL 0.7 mg/dL (0.2-1.0); CALCIUM 8.8 mg/dL (8.5-10.3); CREATININE 0.5 mg/dL (0.4-1.0); TOTAL PROTEIN 7.4 g/dL (6.7-8.2)
--- NOTE | 2020-01-16 15:35 | XRAY Report ---
Reason: recent left PTX; eval of progression Procedure Date: 01/16/2020 Accession Number: [id number] / [id number] Procedure: XR - Chest 3 View X-Ray CPT Code: 03847 Final Report FULL RESULT: EXAM: CHEST RADIOGRAPHY EXAM DATE: 01/16/2020 03:14 PM. CLINICAL HISTORY: Recent pneumothorax. Evaluate for progression. COMPARISON: CHEST 1 VIEW 01/13/2020 6:16 PM. TECHNIQUE: 3 views including frontal inspiration and expiration, and lateral. FINDINGS: Lungs/Pleura: Right hydropneumothorax with increased, large component of effusion and similar to slightly increased small component of pneumothorax with approximately 8 mm apical pleural separation. The left lung remains clear. Mediastinum: Normal cardiomediastinal contour. Other: The bones are unremarkable. IMPRESSION: Increased size of right hydropneumothorax with increased, large component of effusion and similar to slightly increased small component of pneumothorax. RADIA
[2020-01-16] MEDS ORDERED: ACETAMINOPHEN 1,000 MG/100 ML 100 ML IV ONE (15:55)
[2020-01-16 19:20] VITALS: BP 121/83
[2020-01-16] MEDS ORDERED: HYDROmorphone 2 MG/ML VIAL IVP STA (20:29)
== END 2020-01-16 20:50 | disposition short-term general hospital (02) ==
LOC: ED 14:07
DX: J90 Pleural effusion, not elsewhere classified (principal); J95.811 Postprocedural pneumothorax; Y83.8 Other surgical procedures as the cause of abnormal reaction of the patient, or of later complication, without mention of misadventure at the time of the procedure; F17.200 Nicotine dependence, unspecified, uncomplicated; F10.929 Alcohol use, unspecified with intoxication, unspecified
CPT/HCPCS: 36415; 71047; 80053; 80320; 83690; 83735; 85025; 85610; 85730; 96361; 96365; 96375; 96376; 99284; 99285; J0131; J1170

== ENCOUNTER 2020-01-16 20:51 | Outpatient (CLI) | payer MEDICAID | END 2020-01-16 23:59 | disposition short-term general hospital (02) | LOC: EMS 20:51 | PROVIDERS: ATTEND Surgery | DX: J93.9 Pneumothorax, unspecified (principal) | CPT/HCPCS: A0425; A0426 ==

== ENCOUNTER 2020-02-13 08:30 | Outpatient (CLI) | payer MEDICAID ==
[2020-02-13 10:00] LABS: % IRON SATURATION 10 % (20-50); ALBUMIN 3.3 g/dL (3.2-5.5); ALBUMIN/GLOBULIN RATIO 0.9 (1.0-2.2); ALKALINE PHOSPHATASE 86 IU/L (42-121); ALT ALANINE AMINOTRANSFERASE 37 IU/L (10-60); AST ASPARTATE AMINOTRANSFERASE 52 IU/L (10-42); BILIRUBIN,TOTAL 0.5 mg/dL (0.2-1.0); BUN - BLOOD UREA NITROGEN 15 mg/dL (6-20); CALCIUM 8.8 mg/dL (8.5-10.3); CARBON DIOXIDE - CO2 26 mmol/L (21-32); CHLORIDE 106 mmol/L (101-111); CHOL/HDL RATIO 3.9 (<4.4); CHOLESTEROL 167 mg/dL; CREATININE 0.7 mg/dL (0.4-1.0); GLUCOSE 193 mg/dL (70-100); HDL CHOLESTEROL 43 mg/dL; IRON 44 ug/dL (28-170); LDL CHOLESTEROL,CALCULATED 108 mg/dL; LDL/HDL RATIO 2.5 (<4.4); LIPASE 75 U/L (22-51); SODIUM 139 mmol/L (135-145); TOTAL IRON BINDING CAPACITY 461 ug/dL (250-450); TOTAL PROTEIN 6.9 g/dL (6.7-8.2); TRANSFERRIN 329 mg/dL (192-382); VLDL CHOLESTEROL 16 mg/dL
[2020-02-13 10:11] LABS: FERRITIN 39.7 ng/mL (11.0-306.8)
[2020-02-13 11:28] LABS: FREE T4 (FREE THYROXINE) 0.6 ng/dL (0.58-1.64)
== END 2020-02-13 08:31 | disposition home or self-care (01) ==
LOC: LAB 08:30
PROVIDERS: ATTEND Family Medicine
DX: K86.1 Other chronic pancreatitis (principal); K86.81 Exocrine pancreatic insufficiency; N18.2 Chronic kidney disease, stage 2 (mild); E78.5 Hyperlipidemia, unspecified; D50.9 Iron deficiency anemia, unspecified; R53.83 Other fatigue; R53.81 Other malaise
CPT/HCPCS: 36415; 80053; 80061; 82728; 83540; 83690; 83721; 84439; 84443; 84466

== ENCOUNTER 2020-02-13 13:44 | Outpatient (CLI) | payer MEDICAID ==
--- NOTE | 2020-02-13 14:28 | XRAY Report ---
Reason: PLEURAL EFFUSION Procedure Date: 02/13/2020 Accession Number: [id number] / [id number] Procedure: WCP - Chest 2 View X-Ray CPT Code: 38605 Final Report FULL RESULT: PROCEDURE: Chest 2 View X-Ray INDICATIONS: PLEURAL EFFUSION TECHNIQUE: 2 views of the chest are obtained. COMPARISON: Chest x-ray examination dated at 06.[place] FINDINGS: Previously seen right pleural effusion is significantly decreased in size, and is now small. The lungs are clear. No pneumothoraces. Heart size is within normal limits. Visualized osseous structures are grossly unremarkable. IMPRESSION: Nearly resolved right pleural effusion. Reviewed by: Modesta Vides MD on 02/13/2020 2:26 PM PDT Approved by: Modesta Vides MD on 02/13/2020 2:26 PM PDT Station ID: [id number]
== END 2020-02-13 23:59 | disposition home or self-care (01) ==
LOC: DI.WCP 13:44
PROVIDERS: ATTEND Family Medicine
DX: J90 Pleural effusion, not elsewhere classified (principal); K86.1 Other chronic pancreatitis; K86.81 Exocrine pancreatic insufficiency; N18.2 Chronic kidney disease, stage 2 (mild); E78.5 Hyperlipidemia, unspecified; D50.9 Iron deficiency anemia, unspecified; R53.83 Other fatigue; R53.81 Other malaise
CPT/HCPCS: 36415; 71046; 80053; 80061; 82728; 83540; 83690; 83721; 84439; 84443; 84466

== ENCOUNTER 2020-02-28 14:55 | Outpatient (CLI) | payer MEDICAID | END 2020-02-28 14:56 | disposition critical access hospital (66) | LOC: EMS 14:55 | PROVIDERS: ATTEND Surgery | DX: R10.2 Pelvic and perineal pain (principal); S09.90XA Unspecified injury of head, initial encounter; S49.92XA Unspecified injury of left shoulder and upper arm, initial encounter; Y04.8XXA Assault by other bodily force, initial encounter | CPT/HCPCS: A0425; A0428; A0999 ==

== ENCOUNTER 2020-02-28 15:05 | Emergency (ER) | payer MEDICAID ==
[2020-02-28] MEDS ORDERED: ACETAMINOPHEN 325 MG TABLET PO STA (15:30)
[2020-02-28 15:32] VITALS: BP 108/71
[2020-02-28 15:33] LABS: BASOPHILS # (AUTO) 0.1 10^3/uL (0.0-0.1); EOSINOPHILS # (AUTO) 0.1 10^3/uL (0.0-0.7); EOSINOPHILS % (AUTO) 1.4 %; HGB - HEMOGLOBIN 12.6 g/dL (12.0-16.0); LYMPHOCYTES # (AUTO) 3.1 10^3/uL (1.5-3.5); LYMPHOCYTES % (AUTO) 44.1 %; MEAN CORPUSCULAR HEMOGLOBIN 27.8 pg (27.0-31.0); MEAN CORPUSCULAR HGB CONC 33.2 g/dL (32.0-36.0); MEAN CORPUSCULAR VOLUME 83.7 fL (81.0-99.0); MEAN PLATELET VOLUME 8.6 fL (7.9-10.8); MONOCYTES # (AUTO) 0.2 10^3/uL (0.0-1.0); NEUTROPHILS # (AUTO) 3.6 10^3/uL (1.5-6.6); NEUTROPHILS % (AUTO) 50.4 %; PLT - PLATELET COUNT 166 10^3/uL (130-450); RED BLOOD COUNT 4.53 10^6/uL (4.20-5.40); RED CELL DISTRIBUTION WIDTH 17.4 % (12.0-15.0); WHITE BLOOD COUNT 7.1 x10^3/uL (4.8-10.8)
[2020-02-28 15:38] LABS: INR 1.2 (0.8-1.2); PT - PROTHROMBIN TIME 13.8 secs (9.9-12.6)
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
[2020-02-28 15:45] LABS: ALBUMIN/GLOBULIN RATIO 1.1 (1.0-2.2); BILIRUBIN,TOTAL 0.8 mg/dL (0.2-1.0); CALCIUM 8.4 mg/dL (8.5-10.3); CREATININE 0.4 mg/dL (0.4-1.0); PARTIAL THROMBOPLASTIN TIME 36.2 secs (24.9-33.3); TOTAL PROTEIN 7.6 g/dL (6.7-8.2)
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
== END 2020-02-28 17:22 | disposition home or self-care (01) ==
LOC: EDUNIT# → ED 15:05
DX: T76.21XA Adult sexual abuse, suspected, initial encounter (principal); S42.032A Displaced fracture of lateral end of left clavicle, initial encounter for closed fracture; S00.83XA Contusion of other part of head, initial encounter; S00.33XA Contusion of nose, initial encounter; S40.012A Contusion of left shoulder, initial encounter; S40.022A Contusion of left upper arm, initial encounter; Y07.01 Husband, perpetrator of maltreatment and neglect; F10.920 Alcohol use, unspecified with intoxication, uncomplicated; F17.200 Nicotine dependence, unspecified, uncomplicated; Z53.20 Procedure and treatment not carried out because of patient's decision for unspecified reasons
CPT/HCPCS: 36415; 70450; 80053; 80320; 83690; 85025; 85610; 85730; 87491; 87591; 87661; 99284

== ENCOUNTER 2020-02-29 07:50 | Outpatient (CLI) | payer MEDICAID | END 2020-02-29 07:51 | disposition critical access hospital (66) | LOC: EMS 07:50 | PROVIDERS: ATTEND Surgery | DX: S69.92XA Unspecified injury of left wrist, hand and finger(s), initial encounter (principal); S09.92XA Unspecified injury of nose, initial encounter; W19.XXXA Unspecified fall, initial encounter | CPT/HCPCS: A0425; A0429; A0999 ==

== ENCOUNTER 2020-02-29 07:58 | Emergency (ER) | payer MEDICAID ==
[2020-02-29 08:19] VITALS: BP 98/65
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
--- NOTE | 2020-02-29 09:21 | XRAY Report ---
PROCEDURE: Nasal Bones INDICATIONS: fall/pain/swelling TECHNIQUE: 4 views of the nasal bones acquired. COMPARISON: None FINDINGS: Bones: No bilateral symmetric nasal bone fractures appear present, without impaction or significant deviation. Nasal septum is midline. Mildly prominent nasociliary nerve grooves are noted. Soft tissues: No suspicious soft tissue calcifications. IMPRESSION: Bilateral nondisplaced nasal bone fractures, no sign of midline nasal septal fracture. Adjacent paran angy sinuses visualized appear normal. Reviewed by: Lake Green MD on 02/29/2020 8:19 AM NATHALIE Approved by: Lake Green MD on 02/29/2020 8:19 AM NATHALIE Station ID: [id number]
--- NOTE | 2020-02-29 09:25 | XRAY Report ---
PROCEDURE: Wrist 4 View LT INDICATIONS: fall/pain/swelling TECHNIQUE: 4 views of the wrist were acquired. COMPARISON: None FINDINGS: Bones: No fractures or dislocations but there is mild arthritic change at the distal scaphoid and ba se of the trapezium. There also is degenerative osteoarthritis that is moderate in severity at the fi rst carpal-metacarpal articulation and the first MC-P joint.. No suspicious bony lesions. Scaphoid view: No trauma. Soft tissues: No suspicious soft tissue calcifications. IMPRESSION: No acute trauma found. Moderate osteoarthritis at the wrist and base of the first carpal- metacarpal and first metacarpal-phalangeal joints as noted. Reviewed by: Lake Green MD on 02/29/2020 8:24 AM NATHALIE Approved by: Lake Green MD on 02/29/2020 8:24 AM NATHALIE Station ID: [id number]
== END 2020-02-29 09:05 | disposition left against medical advice (07) ==
LOC: EDUNIT# → ED 07:58
DX: S02.2XXA Fracture of nasal bones, initial encounter for closed fracture (principal); S00.83XA Contusion of other part of head, initial encounter; S60.212A Contusion of left wrist, initial encounter; W19.XXXA Unspecified fall, initial encounter; F10.10 Alcohol abuse, uncomplicated; F17.200 Nicotine dependence, unspecified, uncomplicated; M19.032 Primary osteoarthritis, left wrist
CPT/HCPCS: 70160; 99284

== ENCOUNTER 2020-03-01 14:29 | Outpatient (CLI) | payer MEDICAID | END 2020-03-01 14:30 | disposition EMS.NT | LOC: EMS 14:29 | PROVIDERS: ATTEND Surgery | DX: R09.89 Other specified symptoms and signs involving the circulatory and respiratory systems (principal); Z72.89 Other problems related to lifestyle ==

== ENCOUNTER 2020-03-02 22:37 | Emergency (ER) | payer MEDICAID ==
[2020-03-02] MEDS ORDERED: FOLIC ACID INJ 1 MG, THIAMINE INJ 100 MG, MAGNESIUM SULFATE 2 GM, MULTIVITAMIN 10 ML in... IV STA ×5 (23:20)
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
[2020-03-02 23:50] LABS: BASOPHILS # (AUTO) 0.1 10^3/uL (0.0-0.1); BASOPHILS % (AUTO) 0.6 %; EOSINOPHILS # (AUTO) 0.1 10^3/uL (0.0-0.7); EOSINOPHILS % (AUTO) 1.2 %; HGB - HEMOGLOBIN 11.1 g/dL (12.0-16.0); LYMPHOCYTES # (AUTO) 2.3 10^3/uL (1.5-3.5); MEAN CORPUSCULAR HEMOGLOBIN 27.8 pg (27.0-31.0); MEAN CORPUSCULAR HGB CONC 33.1 g/dL (32.0-36.0); MEAN PLATELET VOLUME 8.7 fL (7.9-10.8); MONOCYTES # (AUTO) 0.4 10^3/uL (0.0-1.0); MONOCYTES % (AUTO) 4.6 %; NEUTROPHILS # (AUTO) 5.2 10^3/uL (1.5-6.6); NEUTROPHILS % (AUTO) 64.4 %; PLT - PLATELET COUNT 121 10^3/uL (130-450); RED BLOOD COUNT 3.99 10^6/uL (4.20-5.40); RED CELL DISTRIBUTION WIDTH 17.5 % (12.0-15.0)
[2020-03-02] MEDS ORDERED: THIAMINE 100 MG/1 ML 2 ML MDV ONE (23:51)
[2020-03-02] MEDS ORDERED: MAGNESIUM SULFATE 1 GM/2 ML VIAL ONE (23:51)
[2020-03-02] MEDS ORDERED: FOLIC ACID 5 MG/1 ML 10ML MDV ONE (23:51)
[2020-03-02 23:54] LABS: INR 1.3 (0.8-1.2); PT - PROTHROMBIN TIME 14.5 secs (9.9-12.6)
[2020-03-03] LABS: ALBUMIN 3.8 g/dL (3.2-5.5); ALBUMIN/GLOBULIN RATIO 1.1 (1.0-2.2); BILIRUBIN,TOTAL 0.8 mg/dL (0.2-1.0); CALCIUM 8.2 mg/dL (8.5-10.3); CREATININE 0.4 mg/dL (0.4-1.0); MAGNESIUM 1.8 mg/dL (1.7-2.8); PHOSPHORUS 3.2 mg/dL (2.5-4.6); TOTAL PROTEIN 7.4 g/dL (6.7-8.2)
[2020-03-03] MEDS ORDERED: LORazepam 2 MG/ML VIAL IVP STA ×8 (00:02→21:32)
[2020-03-03] MEDS ORDERED: SODIUM CHLORIDE 0.9% 1,000 ML IV STA ×2 (06:15)
[2020-03-03 08:16] LABS: CALCIUM 7.3 mg/dL (8.5-10.3); CREATININE 0.4 mg/dL (0.4-1.0)
[2020-03-03] MEDS ORDERED: MORPHINE 2 MG/ML CARPUJECT IVP STA ×2 (08:22→17:00)
[2020-03-03] MEDS ORDERED: LACTATED RINGERS 1,000 ML IV STA ×2 (08:24→13:58)
[2020-03-03] MEDS ORDERED: CALCIUM CARBONATE CHEW 500 MG TABLET PO STA (08:27)
--- NOTE | 2020-03-03 09:34 | XRAY Report ---
PROCEDURE: Chest 1 View X-Ray INDICATIONS: right sided chest pain TECHNIQUE: One view of the chest was acquired. COMPARISON: Chest x-ray 02/13/2020 FINDINGS: Surgical changes and devices: None. Lungs and pleura: No pleural effusions or pneumothorax. Lungs are clear. Mediastinum: Mediastinal contours appear normal. Heart size is normal. Bones and chest wall: No suspicious bony lesions. Overlying soft tissues appear unremarkable. IMPRESSION: No acute pulmonary process. The above findings are concordant with preliminary report. Reviewed by: Jenni Walsh MD on 03/03/2020 9:33 AM PDT Approved by: Jenni Walsh MD on 03/03/2020 9:33 AM PDT Station ID: [id number]
[2020-03-03] MEDS ORDERED: chlordiazePOXIDE 25 MG CAPSULE PO STA (14:22)
[2020-03-03 15:26] LABS: MUDS CUTOFF CONCENTRATIONS CUTOFF CONC BELOW:
[2020-03-03 15:35] LABS: BILIRUBIN,URINE NEGATIVE (NEGATIVE); GLUCOSE, URINE (UA) NEGATIVE (NEGATIVE); KETONES,URINE (UA) NEGATIVE (NEGATIVE); LEUKOCYTE ESTERASE, URINE NEGATIVE (NEGATIVE); NITRITE,URINE NEGATIVE (NEGATIVE); OCCULT BLOOD,URINE NEGATIVE (NEGATIVE); PH,URINE 7.5 PH (5.0-7.5); PROTEIN,URINE NEGATIVE (NEGATIVE); UROBILINOGEN,URINE 0.2 (NORMAL) E.U./dL (NORMAL)
[2020-03-03 15:36] LABS: CLARITY,URINE CLEAR (CLEAR)
[2020-03-03 15:39] LABS: AMPHETAMINE SCREEN,URINE NEGATIVE (NEGATIVE); BENZODIAZEPINES SCREEN, URINE POSITIVE (NEGATIVE); COCAINE SCREEN URINE NEGATIVE (NEGATIVE); METHADONE SCREEN, URINE NEGATIVE (NEGATIVE); METHAMPHETAMINES SCREEN, URINE NEGATIVE (NEGATIVE); OPIATE SCREEN, URINE POSITIVE (NEGATIVE); OXYCODONE SCREEN, URINE NEGATIVE (NEGATIVE); PROPOXYPHENE SCREEN, URINE NEGATIVE (NEGATIVE); TRICYCLIC ANTIDEPRESSANT,URINE NEGATIVE (NEGATIVE)
--- NOTE | 2020-03-03 15:48 | ED Physician Documentation ---
ED Addendum - Addendum Addendum: 03/03/20 15:46 Social work was consulted regarding potentially getting the patient for detox. The patient states she is not sure if she wanted to go to detox at this time and might prefer going home. The hospital social worker felt the patient was not in good shape or self-care appropriately and felt the patient should be evaluated by [facility]. We did have to wait a while for the patient to give a urine sample to have the urine tox screen as well which social work said the dispatch was requiring before they would contact the [facility]. During this time the patient was given interval doses of lorazepam and then p.o. Librium to help with her shakiness. She was mildly tachycardic but otherwise conversant and with good blood pressure so did not seem in severe enough withdrawal for medical admission per se. At this point will be awaiting the [facility] evaluation regarding disability and concerns over self-care due to her alcoholism.
--- NOTE | 2020-03-03 17:21 | ED Physician Documentation ---
ED Addendum - Addendum Addendum: 03/03/20 17:20 Care assumed at shift change. She has been a little shaky and has gotten a couple of doses of Ativan. I spoke with the DCR, Natali, by phone. Feels the patient probably is attainable but there are no beds available social at this point she is doing a "walk away." We will probably just keep boarding here in the emergency department and keeping her withdrawal at bay pending further attempts at placement tomorrow. 03/03/20 20:14 Subsequently though the DCR did find a bed in [place] for her and she was accepted. [facility] are completed. She is stable for transport. 03/03/20 20:15 Diagnoses: 1. Alcoholism with abuse and intoxication 2 cirrhosis
[2020-03-03] MEDS ORDERED: PANTOPRAZOLE 40 MG VIAL IVP STA (20:41)
[2020-03-03] MEDS ORDERED: OLANZapine 10 MG VIAL IM STA (23:18)
[2020-03-04] MEDS ORDERED: LORazepam 2 MG/ML VIAL IVP STA (08:01)
[2020-03-04 08:19] VITALS: BP 142/104
== END 2020-03-04 08:35 ==
LOC: ED 22:37
DX: F10.229 Alcohol dependence with intoxication, unspecified (principal); K70.30 Alcoholic cirrhosis of liver without ascites; R00.0 Tachycardia, unspecified; F17.200 Nicotine dependence, unspecified, uncomplicated
CPT/HCPCS: 36415; 71045; 80048; 80053; 80306; 80320; 81003; 83605; 83690; 83735; 84100; 85025; 85610; 96361; 96365; 96372; 96375; 96376; 99283; 99285; A9270; J2060; J3411; J7120; 81001; 87086

== ENCOUNTER 2020-05-09 14:04 | Outpatient (CLI) | payer MEDICAID | END 2020-05-09 14:05 | disposition critical access hospital (66) | LOC: EMS 14:04 | PROVIDERS: ATTEND Surgery | DX: R06.02 Shortness of breath (principal); R07.1 Chest pain on breathing; R05 Cough; R50.9 Fever, unspecified | CPT/HCPCS: A0425; A0429; A0999 ==

== ENCOUNTER 2020-05-09 14:16 | Emergency (ER) | payer MEDICAID ==
[2020-05-09] MEDS ORDERED: ACETAMINOPHEN 325 MG TABLET PO STA (14:52)
--- NOTE | 2020-05-09 15:24 | XRAY Report ---
PROCEDURE: Chest 1 View X-Ray INDICATIONS: cough, congestion, covid+ 3 weeks ago TECHNIQUE: One view of the chest was acquired. COMPARISON: 03/02/2020, 02/13/2020 FINDINGS: Surgical changes and devices: None. Lungs and pleura: No pleural effusions or pneumothorax. No focal infiltrates are seen. Mediastinum: The aorta is prominent and tortuous. The cardiac contours are within normal limits. Bones and chest wall: No suspicious bony lesions. Overlying soft tissues appear unremarkable. IMPRESSION: No focal infiltrates are seen. Reviewed by: Tommie Turner MD on 05/09/2020 2:23 PM AKDT Approved by: Tommie Turner MD on 05/09/2020 2:23 PM AKDT Station ID: [id number]
[2020-05-09 15:58] LABS: BASOPHILS # (AUTO) 0.1 10^3/uL (0.0-0.1); BASOPHILS % (AUTO) 0.9 %; EOSINOPHILS # (AUTO) 0.2 10^3/uL (0.0-0.7); EOSINOPHILS % (AUTO) 2.2 %; LYMPHOCYTES # (AUTO) 1.2 10^3/uL (1.5-3.5); LYMPHOCYTES % (AUTO) 15.2 %; MEAN CORPUSCULAR HEMOGLOBIN 26.5 pg (27.0-31.0); MEAN CORPUSCULAR HGB CONC 33.2 g/dL (32.0-36.0); MEAN CORPUSCULAR VOLUME 79.8 fL (81.0-99.0); MEAN PLATELET VOLUME 9.7 fL (7.9-10.8); MONOCYTES # (AUTO) 0.8 10^3/uL (0.0-1.0); MONOCYTES % (AUTO) 10.5 %; NEUTROPHILS # (AUTO) 5.5 10^3/uL (1.5-6.6); NEUTROPHILS % (AUTO) 70.6 %; PLT - PLATELET COUNT 97 10^3/uL (130-450); RED BLOOD COUNT 3.77 10^6/uL (4.20-5.40); RED CELL DISTRIBUTION WIDTH 19.9 % (12.0-15.0); WHITE BLOOD COUNT 7.7 x10^3/uL (4.8-10.8)
[2020-05-09 16:09] LABS: ALBUMIN 2.8 g/dL (3.2-5.5); ALBUMIN/GLOBULIN RATIO 0.8 (1.0-2.2); BILIRUBIN,TOTAL 1.4 mg/dL (0.2-1.0); CALCIUM 8.2 mg/dL (8.5-10.3); CREATININE 0.4 mg/dL (0.4-1.0); TOTAL PROTEIN 6.2 g/dL (6.7-8.2)
[2020-05-09] MEDS ORDERED: SODIUM CHLORIDE 0.9% 1,000 ML IV STA (16:16)
[2020-05-09] MEDS ORDERED: levoFLOXacin 250 MG TABLET PO STA (17:19)
--- NOTE | 2020-05-09 17:20 | ED Physician Documentation ---
History of Present Illness - Stated complaint Stated Complaint: C+ - Chief complaint Chief Complaint: Resp - History obtained from History obtained from: Patient - History of Present Illness Timing: How many weeks ago (1) Pain level max: 0 Pain level now: 0 - Additonal information Additional information: Patient states she has been coughing for the past week. Nothing makes it better or worse. States she tested positive for COVID 2 to 3 weeks ago. Review of Systems Constitutional: reports: Chills. denies: Fever Nose: reports: Congestion Throat: reports: Sore throat Respiratory: reports: Dyspnea, Cough. denies: Wheezing GI: denies: Abdominal Pain, Nausea, Vomiting, Diarrhea Skin: denies: Rash Neurologic: denies: Focal weakness, Numbness, Headache PD PAST MEDICAL HISTORY - Past Medical History Cardiovascular: Coronary artery disease, [place], Murmur Respiratory: Shortness of breath Neuro: Headaches, Migraines, Tremors Endocrine/Autoimmune: None GI: GERD, Pancreatitis, Hepatitis, Cirrhosis, Cholelithiasis, Other CLINICAL SOCIOLOGIST: None : Nocturia HEENT: Chronic sinusitis Psych: Depression, Anxiety, ADD/ADHD, Post traumatic stress disorder Musculoskeletal: Osteoarthritis, Chronic back pain Derm: None - Past Surgical History Past Surgical History: Yes General: Other Ortho: Other /CLINICAL SOCIOLOGIST: Tubal ligation, Breast implants HEENT: Other - Present Medications Home Medications: Ambulatory Orders Medication Instructions Recorded Confirmed Lipase/Protease/Amylase [Bulmaro Rosario 1 each PO TIDWM #90 capsule. 07/13/18 02/12/19 24,000 Units Capsule] Multivitamin [Multiple Vitamins] 1 each PO DAILY #10 tablet 09/22/18 02/12/19 Spironolactone [Aldactone] 25 mg PO BID 12/06/18 02/12/19 Naloxone HCl [Narcan] 1 spray ALLI PRN PRN 02/12/19 02/12/19 Magnesium Oxide [Mag Ox] 400 mg PO BIDWM #60 tablet 02/14/19 Propranolol [Inderal] 10 mg PO BID #60 tablet 02/14/19 Thiamine [Vitamin B-1] 100 mg PO DAILY #30 tablet 02/14/19 Furosemide [Lasix] 20 mg PO DAILY #14 tablet 03/03/19 Pantoprazole [Protonix] 40 mg PO BID #30 tablet 03/03/19 Ferrous Sulfate 325 mg PO DAILY #30 tablet 10/10/19 Furosemide [Lasix] 20 mg PO DAILY #30 tablet 12/07/19 Levofloxacin [Levaquin] 750 mg PO DAILY #4 tablet 05/09/20 - Allergies Allergies/Adverse Reactions: Allergies Allergy/AdvReac Type Severity Reaction Status Date / Time ketorolac tromethamine * Allergy Severe Hives Verified 05/09/20 14:20 [From Toradol] - Social History Does the pt smoke?: Yes Smoking Status: Current every day smoker Does the pt drink ETOH?: Yes Does the pt have substance abuse?: No - Immunizations Immunizations are current?: No Immunizations: TDAP >10years/unknown - POLST Patient has POLST: No POLST Status: Full Code PD ED PE NORMAL - Vitals Vital signs reviewed: Yes - General General: Alert and oriented X 3, No acute distress, Well developed/nourished - HEENT HEENT: PERRL, Ears normal, Moist mucous membranes, Pharynx benign - Neck Neck: Supple, no meningeal sign - Cardiac Cardiac: RRR - Respiratory Respiratory: No respiratory distress, Clear bilaterally - Abdomen Abdomen: Soft, Non tender, Non distended - Back Back: No CVA TTP, No spinal TTP - Derm Derm: Warm and dry - Extremities Extremities: No edema, No calf tenderness / cord - Neuro Neuro: Alert and oriented X 3 - Psych Psych: Normal mood, Normal affect Results - Vitals Vitals: Vital Signs - 24 hr 05/09/20 05/09/20 05/09/20 14:21 17:35 18:23 Temperature 37.3 C 36.9 C Heart Rate 100 116 H 88 Respiratory 16 14 Rate Blood Pressure 116/70 150/64 H 110/77 O2 Saturation 96 96 99 Oxygen O2 Source Room air - Labs Labs: Laboratory Tests 05/09/20 05/09/20 05/09/20 15:39 15:39 15:39 WBC 7.7 RBC 3.77 L Hgb 10.0 L Hct 30.1 L MCV 79.8 L MCH 26.5 L MCHC 33.2 RDW 19.9 H Plt Count 97 L MPV 9.7 Neut # (Auto) 5.5 Lymph # (Auto) 1.2 L [place] # (Auto) 0.8 Eos # (Auto) 0.2 Baso # (Auto) 0.1 Absolute Nucleated RBC 0.02 Nucleated RBC % 0.3 Sodium 129 L Potassium 3.0 L Chloride 92 L Carbon Dioxide 25 Anion Gap 12.0 BUN 6 Creatinine 0.4 Estimated GFR (MDRD) 164 Glucose 114 H Lactic Acid 3.0 H* Calcium 8.2 L Total Bilirubin 1.4 H AST 130 H ALT 56 Alkaline Phosphatase 318 H Total Protein 6.2 L Albumin 2.8 L Globulin 3.4 Albumin/Globulin Ratio 0.8 L Lipase 65 H - Rads (name of study) Chest x-ray Radiology: Prelim report reviewed, EMP read contemporaneously, See rad report (No acute abnormality) PD MEDICAL DECISION MAKING - ED course Complexity details: reviewed old records, reviewed results, re-evaluated patient, considered differential, d/w patient ED course: Patient is well-appearing, nontoxic. Afebrile. No hypoxia. No respiratory distress. Will place on antibiotics given her long history of methamphetamine abuse and other drug abuse. We will use Levaquin as many of the other antibiotics interact with her normal medications. Tolerating p.o. without difficulty. Given IV fluids. Elevated lactate is likely secondary to decreased clearance secondary to her liver disease. Does not likely represent sepsis in this patient. Patient counseled regarding signs and symptoms for which I bel ieve and urgent re-evaluation would be necessary. Patient with good understanding of and agreement to plan and is comfortable going home at this time This document was made in part using voice recognition software. While efforts are made to proofread this document, sound alike and grammatical errors may occur. Departure - Departure Disposition: 01 Home, Self Care Clinical Impression: Upper respiratory infection Qualifiers: URI type: unspecified URI Qualified Code(s): J06.9 - Acute upper respiratory infection, unspecified Condition: Good Instructions: ED Bronchitis Asthmatic Follow-Up: BRYAN TOBIAS MD [Primary Care Provider] - Within 1 week Prescriptions: Levofloxacin [Levaquin] 750 mg PO DAILY #4 tablet Comments: Take all antibiotics until gone. Return if you worsen. Drink plenty of fluids and rest. Discharge Date/Time: 05/09/20 18:23
[2020-05-09 18:24] VITALS: BP 110/77
== END 2020-05-09 18:23 | disposition home or self-care (01) ==
LOC: EDUNIT# → ED 14:16
DX: J06.9 Acute upper respiratory infection, unspecified (principal); Z20.828 Contact with and (suspected) exposure to other viral communicable diseases; K74.60 Unspecified cirrhosis of liver; F17.200 Nicotine dependence, unspecified, uncomplicated
CPT/HCPCS: 36415; 71045; 80053; 83605; 83690; 85025; 87040; 87635; 96360; 96361; 99284; A9270

== ENCOUNTER 2020-05-10 16:12 | Outpatient (CLI) | payer MEDICAID | END 2020-05-10 16:13 | disposition critical access hospital (66) | LOC: EMS 16:12 | PROVIDERS: ATTEND Surgery | DX: K92.1 Melena (principal); R53.1 Weakness; R06.02 Shortness of breath; R05 Cough; Z72.89 Other problems related to lifestyle | CPT/HCPCS: A0425; A0427; A0999 ==

== ENCOUNTER 2020-05-10 16:19 | Emergency (ER) | payer MEDICAID ==
[2020-05-10] MEDS ORDERED: SODIUM CHLORIDE 0.9% 1,000 ML IV STA ×3 (16:27→19:35)
--- NOTE | 2020-05-10 16:31 | ED Physician Documentation ---
History of Present Illness - Stated complaint Stated Complaint: GIB - History obtained from History obtained from: Patient, EMS - History of Present Illness Timing: Today Pain level max: 0 Pain level now: 0 - Additonal information Additional information: Patient states that she started to have diarrhea last night. She states it is dark in color and is concerned about a potential GI bleed. She has had these in the past. Nothing makes it better or worse. The patient's roommate called EMS because she was lying in bed defecating on herself. Patient states that she did not want to get up because she did not want to get any blood on the floor. She states that instead she decided to lie in bed and have diarrhea. She apparently was drinking wine upon arrival with EMS. Patient was seen here yesterday for a chronic ongoing cough and started on Levaquin. Review of Systems Ten Systems: 10 systems reviewed and negative Constitutional: denies: Fever, Chills Ears: denies: Ear pain Respiratory: reports: Cough GI: reports: Diarrhea. denies: Nausea, Vomiting Skin: denies: Rash Musculoskeletal: denies: Neck pain, Back pain Neurologic: denies: Headache PD PAST MEDICAL HISTORY - Past Medical History Cardiovascular: Coronary artery disease, [place], Murmur Respiratory: Shortness of breath Neuro: Headaches, Migraines, Tremors Endocrine/Autoimmune: None GI: GERD, Pancreatitis, Hepatitis, Cirrhosis, Cholelithiasis, Other FOUNDRY HAND: None : Nocturia HEENT: Chronic sinusitis Psych: Depression, Anxiety, ADD/ADHD, Post traumatic stress disorder Musculoskeletal: Osteoarthritis, Chronic back pain Derm: None - Past Surgical History Past Surgical History: Yes General: Other Ortho: Other /FOUNDRY HAND: Tubal ligation, Breast implants HEENT: Other - Present Medications Home Medications: Ambulatory Orders Medication Instructions Recorded Confirmed Lipase/Protease/Amylase [Bulmaro Rosario 1 each PO TIDWM #90 capsule. 07/13/18 02/12/19 24,000 Units Capsule] Multivitamin [Multiple Vitamins] 1 each PO DAILY #10 tablet 09/22/18 02/12/19 Spironolactone [Aldactone] 25 mg PO BID 12/06/18 02/12/19 Naloxone HCl [Narcan] 1 spray ALLI PRN PRN 02/12/19 02/12/19 Magnesium Oxide [Mag Ox] 400 mg PO BIDWM #60 tablet 02/14/19 Propranolol [Inderal] 10 mg PO BID #60 tablet 02/14/19 Thiamine [Vitamin B-1] 100 mg PO DAILY #30 tablet 02/14/19 Furosemide [Lasix] 20 mg PO DAILY #14 tablet 03/03/19 Pantoprazole [Protonix] 40 mg PO BID #30 tablet 03/03/19 Ferrous Sulfate 325 mg PO DAILY #30 tablet 10/10/19 Furosemide [Lasix] 20 mg PO DAILY #30 tablet 12/07/19 Levofloxacin [Levaquin] 750 mg PO DAILY #4 tablet 05/09/20 - Allergies Allergies/Adverse Reactions: Allergies Allergy/AdvReac Type Severity Reaction Status Date / Time ketorolac tromethamine * Allergy Severe Hives Verified 05/10/20 16:52 [From Toradol] - Social History Does the pt smoke?: Yes Smoking Status: Current every day smoker Does the pt drink ETOH?: Yes Does the pt have substance abuse?: No - Immunizations Immunizations are current?: No Immunizations: TDAP >10years/unknown - POLST Patient has POLST: No POLST Status: Full Code PD ED PE NORMAL - Vitals Vital signs reviewed: Yes - General General: Alert and oriented X 3, No acute distress, Well developed/nourished - HEENT HEENT: PERRL, Moist mucous membranes - Neck Neck: Supple, no meningeal sign - Cardiac Cardiac: RRR, Strong equal pulses - Respiratory Respiratory: No respiratory distress, Clear bilaterally - Abdomen Abdomen: Soft, Non tender, Non distended - Derm Derm: Warm and dry - Extremities Extremities: No edema - Neuro Neuro: Alert and oriented X 3 - Psych Psych: Normal mood, Normal affect Results - Vitals Vitals: Vital Signs - 24 hr 05/10/20 05/10/20 05/10/20 16:41 17:01 18:44 Temperature 36.9 C 36.7 C Heart Rate 99 104 H 105 H Respiratory 30 H 20 26 H Rate Blood Pressure 98/44 L 106/59 L O2 Saturation 98 100 100 05/10/20 19:10 Temperature 36.2 C L Heart Rate 104 H Respiratory 22 Rate Blood Pressure 115/61 O2 Saturation 100 Oxygen O2 Source Room air - Labs Labs: Microbiology 05/10/20 17:40 Occult Blood - Final Stool Laboratory Tests 05/10/20 05/10/20 05/10/20 16:54 16:54 16:54 WBC 10.4 RBC 3.57 L Hgb 9.4 L Hct 29.4 L MCV 82.4 MCH 26.3 L MCHC 32.0 RDW 20.9 H Plt Count 111 L MPV 9.2 Neut # (Auto) 6.8 H Lymph # (Auto) 2.3 [place] # (Auto) 1.1 H Eos # (Auto) 0.1 Baso # (Auto) 0.0 Absolute Nucleated RBC 0.02 Nucleated RBC % 0.2 Manual Slide Review Indicated Platelet Estimate DECREASED (<130,000) Platelet Morphology NORMAL APPEARANCE RBC Morph Micro Appear 2+ ANISOCYTOSIS PT 19.7 H INR 1.8 H APTT 36.0 H Sodium 135 Potassium 2.7 L Chloride 99 L Carbon Dioxide 20 L Anion Gap 16.0 H BUN 6 Creatinine 0.4 Estimated GFR (MDRD) 164 Glucose 129 H Calcium 7.5 L Total Bilirubin 0.9 AST 84 H ALT 50 Alkaline Phosphatase 291 H Total Protein 5.8 L Albumin 2.5 L Globulin 3.3 Albumin/Globulin Ratio 0.8 L Lipase 81 H Ethyl Alcohol 255.7 PD MEDICAL DECISION MAKING - ED course Complexity details: reviewed old records, reviewed results, re-evaluated patient, considered differential, d/w patient, d/w political consultant ED course: Patient with known esophageal varices and positive fecal occult blood. Appears to have melena on exam. Given tranexamic acid, Rocephin, Protonix. Given IV fluids. Blood pressure remains around 110 systolic. Mentating normally. Her heart rate is between 90 and 100. We do not have the ability to care for esophageal varices in this hospital, therefore she will need to be transferred. Patient is continually requesting narcotics. I informed her that due to her alcohol level, she cannot have narcotics at this time. This would be especially dangerous given her liver disease and lack of metabolism of the alcohol and opiates. Patient has no specific acute pain. She states that is her chronic pain. Discussed the case with Sandra Alejo in [place] [address], graciously accepts in transfer. COBRA forms completed. This document was made in part using voice recognition software. While efforts are made to proofread this document, sound alike and grammatical errors may occur. Departure - Departure Disposition: 02 Transfer Acute Care Hosp Clinical Impression: Melena GI bleed Qualifiers: GI bleed type/associated pathology: unspecified gastrointestinal hemorrhage type Qualified Code(s): K92.2 - Gastrointestinal hemorrhage, unspecified Alcohol intoxication Qualifiers: Complication of substance-induced condition: uncomplicated Qualified Code(s): F10.920 - Alcohol use, unspecified with intoxication, uncomplicated Anemia Qualifiers: Anemia type: unspecified type Qualified Code(s): D64.9 - Anemia, unspecified Esophageal varices with hemorrhage Qualifiers: Esophageal varices type: unspecified type Qualified Code(s): I85.01 - Esophageal varices with bleeding Condition: Stable
[2020-05-10 16:57] LABS: BASOPHILS % (AUTO) 0.1 %; EOSINOPHILS # (AUTO) 0.1 10^3/uL (0.0-0.7); EOSINOPHILS % (AUTO) 1.2 %; HGB - HEMOGLOBIN 9.4 g/dL (12.0-16.0); LYMPHOCYTES # (AUTO) 2.3 10^3/uL (1.5-3.5); LYMPHOCYTES % (AUTO) 22.5 %; MEAN CORPUSCULAR HEMOGLOBIN 26.3 pg (27.0-31.0); MEAN CORPUSCULAR VOLUME 82.4 fL (81.0-99.0); MEAN PLATELET VOLUME 9.2 fL (7.9-10.8); MONOCYTES # (AUTO) 1.1 10^3/uL (0.0-1.0); MONOCYTES % (AUTO) 10.1 %; NEUTROPHILS # (AUTO) 6.8 10^3/uL (1.5-6.6); NEUTROPHILS % (AUTO) 65.1 %; PLT - PLATELET COUNT 111 10^3/uL (130-450); RED BLOOD COUNT 3.57 10^6/uL (4.20-5.40); RED CELL DISTRIBUTION WIDTH 20.9 % (12.0-15.0); WHITE BLOOD COUNT 10.4 x10^3/uL (4.8-10.8)
[2020-05-10 17:04] LABS: INR 1.8 (0.8-1.2); PT - PROTHROMBIN TIME 19.7 secs (9.9-12.6)
[2020-05-10 17:11] LABS: ALBUMIN 2.5 g/dL (3.2-5.5); ALBUMIN/GLOBULIN RATIO 0.8 (1.0-2.2); BILIRUBIN,TOTAL 0.9 mg/dL (0.2-1.0); CALCIUM 7.5 mg/dL (8.5-10.3); CREATININE 0.4 mg/dL (0.4-1.0); TOTAL PROTEIN 5.8 g/dL (6.7-8.2)
[2020-05-10 17:46] LABS: PLATELET ESTIMATE, MANUAL DECREASED (<130,000) (NORMAL); PLATELET MORPHOLOGY NORMAL APPEARANCE (NORMAL); RBC MORPHOLOGY (MULTIPLE) 2+ ANISOCYTOSIS (NORMAL)
[2020-05-10] MEDS ORDERED: TRANEXAMIC ACID 1,000 MG in SODIUM CHLORIDE 0.9% 100ML 100 ML IV STA (18:22)
[2020-05-10] MEDS ORDERED: PANTOPRAZOLE 40 MG VIAL IVP STA (18:22)
[2020-05-10] MEDS ORDERED: TRANEXAMIC ACID 1,000 MG/10 ML VIAL ONE (18:35)
[2020-05-10] MEDS ORDERED: cefTRIAXone 1 GM VIAL IVP STA (19:02)
[2020-05-10 20:55] VITALS: BP 115/81
== END 2020-05-10 21:07 | disposition short-term general hospital (02) ==
LOC: EDUNIT# → ED 16:19
DX: K92.1 Melena (principal); I85.01 Esophageal varices with bleeding; F10.920 Alcohol use, unspecified with intoxication, uncomplicated; D64.9 Anemia, unspecified; F17.200 Nicotine dependence, unspecified, uncomplicated
CPT/HCPCS: 36415; 80053; 80320; 82272; 83690; 85025; 85610; 85730; 86850; 86900; 86901; 96361; 96374; 96375; 99284

== ENCOUNTER 2020-05-10 21:08 | Outpatient (CLI) | payer MEDICAID | END 2020-05-10 21:09 | disposition short-term general hospital (02) | LOC: EMS 21:08 | PROVIDERS: ATTEND Surgery | DX: I85.00 Esophageal varices without bleeding (principal); K92.1 Melena | CPT/HCPCS: A0425; A0426 ==

== ENCOUNTER 2020-07-18 20:21 | Outpatient (CLI) | payer MEDICAID | END 2020-07-18 20:22 | disposition critical access hospital (66) | LOC: EMS 20:21 | PROVIDERS: ATTEND Surgery | DX: R51.9 Headache, unspecified (principal); R10.10 Upper abdominal pain, unspecified; R05 Cough; R41.0 Disorientation, unspecified | CPT/HCPCS: A0425; A0429; A0999 ==

== ENCOUNTER 2020-07-18 20:29 | Inpatient (IN) | payer MEDICAID ==
[2020-07-18] MEDS ORDERED: FOLIC ACID INJ 1 MG, THIAMINE INJ 100 MG, MAGNESIUM SULFATE 2 GM, MULTIVITAMIN 10 ML in... IV STA ×5 (20:36)
[2020-07-18] MEDS ORDERED: LORazepam 2 MG/ML VIAL IVP STA (20:41)
--- NOTE | 2020-07-18 20:41 | ED Physician Documentation ---
History of Present Illness - Stated complaint Stated Complaint: ABD PX/ MONROY/ COUGH - History obtained from History obtained from: Patient, EMS - Additonal information Additional information: 60-year-old woman presents by ambulance. She reportedly has been sitting in the same chair for about a week not getting up. She has a productive cough with green sputum and shortness of breath. She denies fevers. Sounds like she has not been eating or drinking much. Says that her last alcoholic drink was about a week ago. She has been incontinent of liquid stool. She complains of headache. Review of Systems Constitutional: reports: Reviewed and negative Ears: reports: Reviewed and negative Nose: reports: Reviewed and negative Throat: reports: Reviewed and negative Cardiac: reports: Reviewed and negative Respiratory: reports: Reviewed and negative PD PAST MEDICAL HISTORY - Past Medical History Cardiovascular: Coronary artery disease, [place], Murmur Respiratory: Shortness of breath Neuro: Headaches, Migraines, Tremors Endocrine/Autoimmune: None GI: GERD, Pancreatitis, Hepatitis, Cirrhosis, Cholelithiasis, Other SPECIAL DELIVERY MESSENGER: None : Nocturia HEENT: Chronic sinusitis Psych: Depression, Anxiety, ADD/ADHD, Post traumatic stress disorder Musculoskeletal: Osteoarthritis, Chronic back pain Derm: None - Past Surgical History Past Surgical History: Yes General: Other Ortho: Other /SPECIAL DELIVERY MESSENGER: Tubal ligation, Breast implants HEENT: Other - Present Medications Home Medications: Ambulatory Orders Medication Instructions Recorded Confirmed Lipase/Protease/Amylase [Bulmaro Rosario 1 each PO TIDWM #90 capsule. 07/13/18 02/12/19 24,000 Units Capsule] Multivitamin [Multiple Vitamins] 1 each PO DAILY #10 tablet 09/22/18 02/12/19 Spironolactone [Aldactone] 25 mg PO BID 12/06/18 02/12/19 Naloxone HCl [Narcan] 1 spray ALLI PRN PRN 02/12/19 02/12/19 Magnesium Oxide [Mag Ox] 400 mg PO BIDWM #60 tablet 02/14/19 Propranolol [Inderal] 10 mg PO BID #60 tablet 02/14/19 Thiamine [Vitamin B-1] 100 mg PO DAILY #30 tablet 02/14/19 Furosemide [Lasix] 20 mg PO DAILY #14 tablet 03/03/19 Pantoprazole [Protonix] 40 mg PO BID #30 tablet 03/03/19 Ferrous Sulfate 325 mg PO DAILY #30 tablet 10/10/19 Furosemide [Lasix] 20 mg PO DAILY #30 tablet 12/07/19 levoFLOXacin [Levaquin] 750 mg PO DAILY #4 tablet 05/09/20 - Allergies Allergies/Adverse Reactions: Allergies Allergy/AdvReac Type Severity Reaction Status Date / Time ketorolac tromethamine * Allergy Severe Hives Verified 07/18/20 21:30 [From Toradol] - Social History Does the pt smoke?: Yes Smoking Status: Current every day smoker Does the pt drink ETOH?: Yes Does the pt have substance abuse?: No - Immunizations Immunizations are current?: No Immunizations: TDAP >10years/unknown - POLST Patient has POLST: No POLST Status: Full Code PD ED PE NORMAL - Vitals Vital signs reviewed: Yes - General General: Alert and oriented X 3, No acute distress - HEENT HEENT: Other (Very dry mucous membranes with some perioral sores) - Neck Neck: Supple, no meningeal sign, No bony TTP - Cardiac Cardiac: RRR, No murmur - Respiratory Respiratory: No respiratory distress, Other (Rhonchorous throughout without other focal findings) - Abdomen Abdomen: Soft, Non tender - Back Back: No CVA TTP, No spinal TTP - Derm Derm: Normal color, Warm and dry - Neuro Neuro: Alert and oriented X 3, Normal speech Results - Vitals Vitals: Vital Signs - 24 hr 07/18/20 07/18/20 07/18/20 20:29 21:33 22:02 Temperature 36.8 C Heart Rate 109 H 114 H 114 H Respiratory 20 24 16 Rate Blood Pressure 105/59 L 105/59 L 105/59 L O2 Saturation 100 96 97 07/18/20 07/18/20 07/19/20 22:29 23:51 00:33 Temperature 37.2 C 36.8 C 36.8 C Heart Rate 112 H 117 H 116 H Respiratory 18 18 29 H Rate Blood Pressure 113/61 112/74 111/63 O2 Saturation 99 98 99 07/19/20 07/19/20 07/19/20 01:05 01:43 02:15 Temperature 38.0 C H Heart Rate 112 H 118 H 120 H Respiratory 12 21 15 Rate Blood Pressure 108/63 108/63 108/63 O2 Saturation 96 96 97 07/19/20 07/19/20 07/19/20 02:53 04:02 04:10 Temperature 36.9 C 36.8 C 37.0 C Heart Rate 114 H 112 H 114 H Respiratory 16 20 18 Rate Blood Pressure 104/67 104/57 L 102/54 L O2 Saturation 97 95 96 07/19/20 05:01 Temperature 36.9 C Heart Rate 116 H Respiratory 24 Rate Blood Pressure 105/64 O2 Saturation 97 Oxygen O2 Source Room air - EKG (time done) 2044 Rate: Rate (enter#) (108) Rhythm: Sinus tachycardia [place]: Normal Intervals: Other (LAFB) Ischemia: Non specific changes Computer interpretation: Agree with computer - Labs Labs: Laboratory Tests 07/18/20 07/18/20 07/18/20 21:15 21:15 21:15 WBC RBC Hgb Hct MCV MCH MCHC RDW Plt Count MPV Neut # (Auto) Lymph # (Auto) [place] # (Auto) Eos # (Auto) Baso # (Auto) Absolute Nucleated RBC Nucleated RBC % Manual Slide Review Platelet Estimate Platelet Morphology RBC Morph Micro Appear PT 16.4 H INR 1.5 H D-Dimer 658.7 H VBG pH VBG pCO2 VBG pO2 VBG HCO3 VBG Total CO2 VBG O2 Saturation VBG Base Excess Sodium 140 Potassium 3.4 L Chloride 101 Carbon Dioxide 24 Anion Gap 15.0 H BUN 9 Creatinine 0.3 L Estimated GFR (MDRD) 228 Glucose 107 H Lactic Acid 3.8 H* Calcium 7.9 L Total Bilirubin 0.8 AST 149 H ALT 62 H Alkaline Phosphatase 174 H B-Natriuretic Peptide Total Protein 5.9 L Albumin 2.9 L Globulin 3.0 Albumin/Globulin Ratio 1.0 Lipase 318 H Urine Color Urine Clarity Urine pH Ur Specific [place] Urine Protein Urine Glucose (UA) Urine Ketones Urine Occult Blood Urine Nitrite Urine Bilirubin Urine Urobilinogen Ur Leukocyte Esterase Ur Microscopic Review Urine Culture Comments Urine Opiates Screen Ur Oxycodone Screen Urine Methadone Screen Ur Propoxyphene Screen Ur Barbiturates Screen Ur Tricyclics Screen Ur Phencyclidine Scrn Ur Amphetamine Screen U Methamphetamines Scrn U Benzodiazepines Scrn Urine Cocaine Screen U Cannabinoids Screen Ethyl Alcohol 412.2 Serum Ketones NEGATIVE SARS-CoV-2 (PCR) 07/18/20 07/18/20 07/18/20 21:15 21:15 21:40 WBC 9.4 RBC 3.92 L Hgb 10.7 L Hct 32.1 L MCV 81.9 MCH 27.3 MCHC 33.3 RDW 21.6 H Plt Count 83 L MPV 10.1 Neut # (Auto) 7.1 H Lymph # (Auto) 1.3 L [place] # (Auto) 0.9 Eos # (Auto) 0.1 Baso # (Auto) 0.1 Absolute Nucleated RBC 0.00 Nucleated RBC % 0.0 Manual Slide Review Indicated Platelet Estimate DECREASED (<130,000) Platelet Morphology NORMAL APPEARANCE RBC Morph Micro Appear 1+ SCHISTOCYTES PT INR D-Dimer VBG pH VBG pCO2 VBG pO2 VBG HCO3 VBG Total CO2 VBG O2 Saturation VBG Base Excess Sodium Potassium Chloride Carbon Dioxide Anion Gap BUN Creatinine Estimated GFR (MDRD) Glucose Lactic Acid Calcium Total Bilirubin AST ALT Alkaline Phosphatase B-Natriuretic Peptide 18 Total Protein Albumin Globulin Albumin/Globulin Ratio Lipase Urine Color YELLOW Urine Clarity CLEAR Urine pH 6.5 Ur Specific [place] 1.020 Urine Protein NEGATIVE Urine Glucose (UA) NEGATIVE Urine Ketones NEGATIVE Urine Occult Blood NEGATIVE Urine Nitrite NEGATIVE Urine Bilirubin NEGATIVE Urine Urobilinogen 0.2 (NORMAL) Ur Leukocyte Esterase NEGATIVE Ur Microscopic Review NOT INDICATED Urine Culture Comments NOT INDICATED Urine Opiates Screen NEGATIVE Ur Oxycodone Screen NEGATIVE Urine Methadone Screen NEGATIVE Ur Propoxyphene Screen NEGATIVE Ur Barbiturates Screen NEGATIVE Ur Tricyclics Screen NEGATIVE Ur Phencyclidine Scrn NEGATIVE Ur Amphetamine Screen NEGATIVE U Methamphetamines Scrn NEGATIVE U Benzodiazepines Scrn NEGATIVE Urine Cocaine Screen NEGATIVE U Cannabinoids Screen NEGATIVE Ethyl Alcohol Serum Ketones SARS-CoV-2 (PCR) 07/18/20 07/18/20 07/19/20 21:52 22:21 01:05 WBC RBC Hgb Hct MCV MCH MCHC RDW Plt Count MPV Neut # (Auto) Lymph # (Auto) [place] # (Auto) Eos # (Auto) Baso # (Auto) Absolute Nucleated RBC Nucleated RBC % Manual Slide Review Platelet Estimate Platelet Morphology RBC Morph Micro Appear PT INR D-Dimer VBG pH 7.335 VBG pCO2 21.4 L VBG pO2 57.5 H VBG HCO3 11.2 L VBG Total CO2 11.8 L VBG O2 Saturation 85.5 H VBG Base Excess -13.6 L Sodium Potassium Chloride Carbon Dioxide Anion Gap BUN Creatinine Estimated GFR (MDRD) Glucose Lactic Acid 3.5 H* Calcium Total Bilirubin AST ALT Alkaline Phosphatase B-Natriuretic Peptide Total Protein Albumin Globulin Albumin/Globulin Ratio Lipase Urine Color Urine Clarity Urine pH Ur Specific [place] Urine Protein Urine Glucose (UA) Urine Ketones Urine Occult Blood Urine Nitrite Urine Bilirubin Urine Urobilinogen Ur Leukocyte Esterase Ur Microscopic Review Urine Culture Comments Urine Opiates Screen Ur Oxycodone Screen Urine Methadone Screen Ur Propoxyphene Screen Ur Barbiturates Screen Ur Tricyclics Screen Ur Phencyclidine Scrn Ur Amphetamine Screen U Methamphetamines Scrn U Benzodiazepines Scrn Urine Cocaine Screen U Cannabinoids Screen Ethyl Alcohol Serum Ketones SARS-CoV-2 (PCR) NOT DETECTED - Rads (name of study) 1v chest Radiology: EMP read contemporaneously (NAD) Procedures - General procedure General procedure: She was difficult for IV access as well as blood draws. I personally did the initial blood draw from the left brachial artery without complication. Notified that I missed the green tube for the blood gas and we were ignoring this initially, but when her D-dimer came back positive she also needed an another IV as the current IV was in her hand and I personally placed a long 20-gauge IV in the right deep brachial vein just above the antecubital fossa using real-time ultrasound guidance after ChloraPrep which flushed and diony well. PD MEDICAL DECISION MAKING - ED course ED course: 60-year-old woman with cirrhosis and alcoholism presents By ambulance with cough and shortness of breath but appears quite disheveled. Somehow although reportedly she has not gotten up from the same chair for the last week her blood alcohol is 412. She is mildly tachycardic. Mild liver inflammation. Her H&H is at her baseline. D-dimer was high and a CT is pending at shift change. [place] te high, but prob d/t volume depletion as opposed to sepsis et al. Given IVF. No evidence of sepsis/infection at change of shift. Care to overnight physician. If we find something to admit her for of course we will, otherwise she will be allowed to sober up in the ER to consider DCR evaluation when clinically sober for evaluation for Juan's law custodial. Departure - Departure Disposition: 66 [facility] DC/Xfer Clinical Impression: History of substance abuse, LFT elevation, Lactic acidosis, Alcohol abuse, D yspnea on effort, Pleural effusion, Sepsis, Sinusitis, Abdominal pain, Headache Diarrhea Qualifiers: Diarrhea type: unspecified type Qualified Code(s): R19.7 - Diarrhea, unspecified Alcohol intoxication Qualifiers: Complication of substance-induced condition: uncomplicated Qualified Code(s): F10.920 - Alcohol use, unspecified with intoxication, uncomplicated Condition: Stable Discharge Date/Time: 07/19/20 06:10
[2020-07-18] MEDS ORDERED: MAGNESIUM SULFATE 1 GM/2 ML VIAL ONE (21:09)
[2020-07-18] MEDS ORDERED: FOLIC ACID 5 MG/1 ML 10ML MDV ONE (21:09)
[2020-07-18] MEDS ORDERED: THIAMINE 100 MG/1 ML 2 ML MDV ONE (21:09)
[2020-07-18] MEDS ORDERED: COD LIVER OIL/ZINC OXIDE 113 GM TUBE TOP STA (21:10)
[2020-07-18] MEDS ORDERED: MIN OIL/DIMETHICON/COCONUT OIL 92 GM TUBE TOP STA (21:21)
[2020-07-18] MEDS ORDERED: SODIUM CHLORIDE 0.9% 1,000 ML IV STA (21:21)
[2020-07-18 21:34] LABS: BASOPHILS # (AUTO) 0.1 10^3/uL (0.0-0.1); BASOPHILS % (AUTO) 0.5 %; EOSINOPHILS # (AUTO) 0.1 10^3/uL (0.0-0.7); EOSINOPHILS % (AUTO) 0.5 %; HGB - HEMOGLOBIN 10.7 g/dL (12.0-16.0); LYMPHOCYTES # (AUTO) 1.3 10^3/uL (1.5-3.5); LYMPHOCYTES % (AUTO) 13.4 %; MEAN CORPUSCULAR HEMOGLOBIN 27.3 pg (27.0-31.0); MEAN CORPUSCULAR HGB CONC 33.3 g/dL (32.0-36.0); MEAN CORPUSCULAR VOLUME 81.9 fL (81.0-99.0); MEAN PLATELET VOLUME 10.1 fL (7.9-10.8); MONOCYTES # (AUTO) 0.9 10^3/uL (0.0-1.0); MONOCYTES % (AUTO) 9.6 %; NEUTROPHILS # (AUTO) 7.1 10^3/uL (1.5-6.6); NEUTROPHILS % (AUTO) 75.4 %; PLT - PLATELET COUNT 83 10^3/uL (130-450); RED BLOOD COUNT 3.92 10^6/uL (4.20-5.40); RED CELL DISTRIBUTION WIDTH 21.6 % (12.0-15.0); WHITE BLOOD COUNT 9.4 x10^3/uL (4.8-10.8)
[2020-07-18 21:37] LABS: INR 1.5 (0.8-1.2); PT - PROTHROMBIN TIME 16.4 secs (9.9-12.6)
[2020-07-18 21:40] LABS: ALBUMIN 2.9 g/dL (3.2-5.5); ALKALINE PHOSPHATASE 174 IU/L (42-121); ALT ALANINE AMINOTRANSFERASE 62 IU/L (10-60); AST ASPARTATE AMINOTRANSFERASE 149 IU/L (10-42); BILIRUBIN,TOTAL 0.8 mg/dL (0.2-1.0); BUN - BLOOD UREA NITROGEN 9 mg/dL (6-20); CALCIUM 7.9 mg/dL (8.5-10.3); CARBON DIOXIDE - CO2 24 mmol/L (21-32); CHLORIDE 101 mmol/L (101-111); CREATININE 0.3 mg/dL (0.4-1.0); GLUCOSE 107 mg/dL (70-100); LIPASE 318 U/L (22-51); SODIUM 140 mmol/L (135-145); TOTAL PROTEIN 5.9 g/dL (6.7-8.2)
[2020-07-18 21:41] LABS: D-DIMER 658.7 ng/mL (200.0-255.0)
--- NOTE | 2020-07-18 21:41 | XRAY Report ---
PROCEDURE: Chest 1 View X-Ray INDICATIONS: cough/dyspnea TECHNIQUE: One view of the chest was acquired. COMPARISON: 05.09.20 FINDINGS: Surgical changes and devices: None. Lungs and pleura: No pleural effusions or pneumothorax. Lungs are clear. Mediastinum: Mediastinal contours appear normal. Heart size is normal. Bones and chest wall: No suspicious bony lesions. Overlying soft tissues appear unremarkable. IMPRESSION: No acute process. Reviewed by: Modesta Vides MD on 07/18/2020 9:40 PM [facility] Approved by: Modesta Vides MD on 07/18/2020 9:40 PM [facility] Station ID: [id number]
[2020-07-18 21:42] LABS: KETONES, SERUM (ACETEST) NEGATIVE (NEGATIVE)
[2020-07-18 21:54] LABS: BILIRUBIN,URINE NEGATIVE (NEGATIVE); GLUCOSE, URINE (UA) NEGATIVE (NEGATIVE); KETONES,URINE (UA) NEGATIVE (NEGATIVE); LEUKOCYTE ESTERASE, URINE NEGATIVE (NEGATIVE); MUDS CUTOFF CONCENTRATIONS CUTOFF CONC BELOW:; NITRITE,URINE NEGATIVE (NEGATIVE); OCCULT BLOOD,URINE NEGATIVE (NEGATIVE); PH,URINE 6.5 PH (5.0-7.5); PROTEIN,URINE NEGATIVE (NEGATIVE); UROBILINOGEN,URINE 0.2 (NORMAL) E.U./dL (NORMAL)
[2020-07-18 21:55] LABS: CLARITY,URINE CLEAR (CLEAR)
[2020-07-18 22:05] LABS: VBG BASE EXCESS -13.6 mmol/L (-2 - +2); VBG PCO2 21.4 mmHg (41-51); VBG PH 7.335 (7.31-7.41); VBG PO2 57.5 mmHg (25-47); VBG TOTAL CO2 11.8 mmol/L (24-29)
[2020-07-18] MEDS ORDERED: IOVERSOL 320 100 ML VIAL IVP ONE (22:07)
[2020-07-18 22:08] LABS: PLATELET ESTIMATE, MANUAL DECREASED (<130,000) (NORMAL); PLATELET MORPHOLOGY NORMAL APPEARANCE (NORMAL)
[2020-07-18 22:12] LABS: AMPHETAMINE SCREEN,URINE NEGATIVE (NEGATIVE); BENZODIAZEPINES SCREEN, URINE NEGATIVE (NEGATIVE); COCAINE SCREEN URINE NEGATIVE (NEGATIVE); METHADONE SCREEN, URINE NEGATIVE (NEGATIVE); METHAMPHETAMINES SCREEN, URINE NEGATIVE (NEGATIVE); OPIATE SCREEN, URINE NEGATIVE (NEGATIVE); OXYCODONE SCREEN, URINE NEGATIVE (NEGATIVE); PROPOXYPHENE SCREEN, URINE NEGATIVE (NEGATIVE); TRICYCLIC ANTIDEPRESSANT,URINE NEGATIVE (NEGATIVE)
[2020-07-18] MEDS ORDERED: POTASSIUM CHLORIDE 20 MEQ TABLET PO STA (22:33)
[2020-07-18] MEDS ORDERED: IBUPROFEN 600 MG TABLET PO STA (22:35)
[2020-07-18] MEDS ORDERED: LACTATED RINGERS 1,000 ML IV STA (22:35)
[2020-07-18] MEDS: IOVERSOL 320 100 ML VIAL IVP ONE (23:40)
--- NOTE | 2020-07-19 01:02 | ED Physician Documentation ---
ED Addendum - Addendum Addendum: 07/19/20 01:01 Patient with rectal temp of 100.4. Sepsis suspected at this time. Patient has already received 30 cc/kg IV fluids and oral ibuprofen. Will add antibiotics on at this time for suspected abdominal source.Repeat lactate ordered. We will draw blood cultures. 07/19/20 01:32 On my reevaluation patient with improvement in headache. HR improved, RR now wnl. Still with epigastric abdominal pain. not endorsing any dyspnea at this time. mild tenderness to BL UQ on exam. will obtain ct abdomen/pelvis for potential source. possible that fever is attributable to pancreatitis, but we will treat as sepsis at this time. 07/19/20 03:59 d/w hospitalist. lactate improved, hr improved. patient with sinusitis on head ct as well as new pleural effusion - possible septic source. bedside ruq without evidence of cholecystitis or cholelithiasis. will admit for iv antibiotics/furth er workup.
[2020-07-19] MEDS ORDERED: VANCOMYCIN INJ 1 GM in SODIUM CHLORIDE 0.9% 500 ML IV STA (01:04)
[2020-07-19] MEDS ORDERED: CEFEPIME 1 GM in SODIUM CHLORIDE 0.9% MINIBAG 100 ML IV STA (01:05)
[2020-07-19] MEDS ORDERED: IOVERSOL 320 100 ML VIAL IVP ONE (01:18)
[2020-07-19] MEDS ORDERED: VANCOMYCIN 1 GM VIAL ONE (01:26)
[2020-07-19] MEDS ORDERED: LACTATED RINGERS 1,000 ML IV STA (01:40)
[2020-07-19] MEDS ORDERED: chlordiazePOXIDE 25 MG CAPSULE PO STA (02:53)
[2020-07-19] MEDS ORDERED: ONDANSETRON 4 MG/2 ML VIAL IVP PRN (05:15)
--- NOTE | 2020-07-19 05:23 | HISTORY & PHYSICAL EXAMINATION ---
Chief Complaint - Chief Complaint Chief Complaint: falls, generalized pain, alcohol intoxication/withdrawal History of Present Illness - Admitted From Admitted From:: [facility] ED - History Obtained From Records Reviewed: Yes History obtained from: Patient - History of Present Illness HPI Comment/Other: Patient is a 60-year-old female with medical history significant for alcohol abuse, cirrhosis for which she has undergone TIPS procedure, history of pancreatitis, coronary artery disease, COPD, PTSD, anxiety, chronic pain who presented to the ED with complaint of multiple falls. It is difficult to objectively ascertain the patient's actual complains because she has a weinberg positive review of system. Objectively in the ED she was found to be tachycardic with a heart rate as high as 120s, tachypneic, febrile with a temperature of 38 C. She also had a lactic acid of 3.8. She was also intoxicated with an alcohol level of 412. Despite this level of alcohol she also appeared to be tremulous. She reports drinking a box of wine which is about 3 L today. She will go for months without drinking and then binge drink. She has been binge drinking for the past 5 days. Her lipase level was 318. 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 She reports chest pain, dyspnea, abdominal pain, nausea, vomiting. She was initially presented for concern of being septic. She is being admitted for further treatment. 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: reports: None : reports: Nocturia HEENT: reports: Chronic sinusitis Psych: reports: Depression, Anxiety, ADD/ADHD, Post traumatic stress disorder Musculoskeletal: reports: Osteoarthritis, Chronic back pain Derm: reports: None MRSA Hx?: No - Past Surgical History General: reports: Other Ortho: reports: Other /COMPUTER ENGINEERING TECHNOLOGIST: reports: Tubal ligation, Breast implants HEENT: reports: Other - Family & Social History Family History: Mother: , CVA/TIA, Father: , Hyperlipidemia, Hypertension, [place], Sister: Alive and Well (Epilepsy), Brother: Alive and Well, Other family: Cancer, Diabetes, Type 2 Family History Comment/Other: neg for GI tumors Social History Notes: Patient lives in [place], [place] with her boyfriend. She has 2 children one son and one daughter. 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 She continues to smoke 3 cigarettes a day.She would go for months without drinking and binge drink. For the pas 5 days she has been drinking a box of wine daily. She denies any illicit drug use. - Substance History Use: Uses substance without health or social issues: Tobacco - POLST Patient has POLST: No POLST Status: Full Code Meds/Allgy - Home Medications Home Medications: Ambulatory Orders Medication Instructions Recorded Confirmed Lipase/Protease/Amylase [Creon 1 each PO TIDWM #90 capsule. 07/13/18 02/12/19 24,000 Units Capsule] Multivitamin [Multiple Vitamins] 1 each PO DAILY #10 tablet 09/22/18 02/12/19 Spironolactone [Aldactone] 25 mg PO BID 12/06/18 02/12/19 Naloxone HCl [Narcan] 1 spray ALLI PRN PRN 02/12/19 02/12/19 Magnesium Oxide [Mag Ox] 400 mg PO BIDWM #60 tablet 02/14/19 Propranolol [Inderal] 10 mg PO BID #60 tablet 02/14/19 Thiamine [Vitamin B-1] 100 mg PO DAILY #30 tablet 02/14/19 Furosemide [Lasix] 20 mg PO DAILY #14 tablet 03/03/19 Pantoprazole [Protonix] 40 mg PO BID #30 tablet 03/03/19 Ferrous Sulfate 325 mg PO DAILY #30 tablet 10/10/19 Furosemide [Lasix] 20 mg PO DAILY #30 tablet 12/07/19 levoFLOXacin [Levaquin] 750 mg PO DAILY #4 tablet 05/09/20 - Allergies Allergies/Adverse Reactions: Allergies Allergy/AdvReac Type Severity Reaction Status Date / Time ketorolac tromethamine * Allergy Severe Hives Verified 07/18/20 21:30 [From Toradol] Review of Systems - Constitutional Constitutional: reports: Fever, Other (Intoxicated,Frequent falls). denies: Weakness - Eyes Eyes: denies: Pain, Vision loss - Ears, Nose & Throat Ears, Nose & Throat: denies: Ear pain - Cardiovascular Cariovascular: reports: Palpitations. denies: Irregular heart rate, Chest pain, Edema, Exertional dyspnea, Decr. exercise tolerance - Respiratory Respiratory: denies: Cough, Sputum production, Wheezing, SOB at rest, SOB with exertion - Gastrointestinal Gastrointestinal: reports: Abdominal pain, Nausea. denies: Abdominal distention - Genitourinary Genitourinary: denies: Dysuria, Frequency, Urgency, Hematuria - Musculoskeletal Musculoskeletal: denies: Muscle pain, Back pain - Integumentary Integumentary: denies: Rash, Pruritis, Lesions - Neurological Neurological: denies: General weakness - Psychiatric Psychiatric: denies: Depression, Anxiety - Endocrine Endocrine: denies: Polyuria, Polydypsia - Hematologic/Lymphatic Hematologic/Lymphatic: denies: Anemia, Bruising, Petechiae Prior Level of Functionality: She is normally independent of activities of daily living Exam - Vital Signs Vital Signs: Vital Signs x48h Temp Pulse Resp BP Pulse Ox 07/19/20 05:01 36.9 C 116 H 24 105/64 97 07/19/20 04:10 37.0 C 114 H 18 102/54 L 96 07/19/20 04:02 36.8 C 112 H 20 104/57 L 95 07/19/20 02:53 36.9 C 114 H 16 104/67 97 07/19/20 02:15 120 H 15 108/63 97 07/19/20 01:43 118 H 21 108/63 96 07/19/20 01:05 38.0 C H 112 H 12 108/63 96 07/19/20 00:33 36.8 C 116 H 29 H 111/63 99 07/18/20 23:51 36.8 C 117 H 18 112/74 98 07/18/20 22:29 37.2 C 112 H 18 113/61 99 07/18/20 22:02 114 H 16 105/59 L 97 07/18/20 21:33 114 H 24 105/59 L 96 - Physical Exam General Appearance: positive: No acute distress, Alert Eyes Bilateral: positive: PERRL, EOMI ENT: positive: Dry mucous membranes Neck: positive: No JVD, Trachea midline Respiratory: positive: Chest non-tender, No respiratory distress, Rhonchi (Mild, right lung base.). negative: Wheezes, Rales Cardiovascular: positive: Tachycardia Abdomen: positive: Non-tender, No organomegaly, Nml bowel sounds, No distention Back: positive: Nml inspection Skin: positive: Color nml, No rash, Warm, Dry Extremities: positive: Non-tender, Full ROM, Nml appearance, No pedal edema Neurologic/Psychiatric: positive: Oriented x3 Sepsis Event Note (H) - Sepsis Criteria Sepsis Criteria: Recorded Heart Rate greater than 90 bpm, Recorded Respiratory Rate greater than 20, Metabolic: lactate > 2 mmol/L Conclusion/Plan - Problem List (1) SIRS (systemic inflammatory response syndrome) Conclusion/Plan: In light of patient's lactic acidosis, tachypnea, tachycardia and temperature of 38 C, it was initially thought that she was septic and septic protocol was initiated in the ED. She received a dose of vancomycin and cefepime. We will hold off on antibiotics for now. Will resume antibiotics if patient develops a fever again, blood culture is positive and/or patient's white count becomes elevated. (2) Alcohol withdrawal Conclusion/Plan: Patient placed on CIWA protocol. Patient would receive a banana bag. Thiamine 100 mg tablet daily. (3) Sinus tachycardia Conclusion/Plan: Question if this is mainly because patient has not taken her medication versus alcohol withdrawal symptoms. She is normally on propanolol 10 mg p.o. twice daily (4) Lactic acidosis Conclusion/Plan: This is likely due to patient's alcoholism. Patient receiving IV hydration. We will trend lactic acid. Anticipating improvement/resolution. (5) Alcoholism /alcohol abuse Conclusion/Plan: Patient has been drinking 1 box of wine which is approximately 3 L daily for the past 5 days. She will go for months without drinking then binge drink for a while. She attributes this current episode to boredom. CIWA protocol initiated. (6) Pancreatitis, chronic Conclusion/Plan: Patient's lipase was 318. Will trend. Patient received IV contrast for a CT angio of the chest. Will allow for sufficient time to pass since contrast was administered before repeating contrast for CT abdomen pelvis. This is to determine if there is an acute component to patient's pancreatitis today. Considering patient has been binge drinking for the past 5 days. Patient receiving IV hydration with normal saline. Patient is supposed to be on Creon. Will resume once verified. Qualifiers: Pancreatitis type: alcohol induced Qualified Code(s): K86.0 - Alcohol- induced chronic pancreatitis (7) Cirrhosis Conclusion/Plan: Patient is normally supposed to be on spironolactone, Lasix. However will hold while actively hydrating patient. - Lab Results Fish Bones: 07/18/20 21:15 07/18/20 21:15 Core Measures - Anticipated LOS I expect patient to be DC'd or transferred within 96 hours.: Yes - DVT/VTE - Prophylaxis VTE/DVT Device ordered at admit?: Yes
[2020-07-19] MEDS ORDERED: ACETAMINOPHEN 325 MG TABLET PO PRN (06:55)
[2020-07-19] MEDS: PANTOPRAZOLE 40 MG TABLET PO SCH (07:01)
[2020-07-19] MEDS: LORazepam 2 MG/ML VIAL IVP PRN ×12 (07:01→21:58)
[2020-07-19] MEDS: IOVERSOL 320 100 ML VIAL IVP ONE (07:43)
[2020-07-19] MEDS: chlordiazePOXIDE 25 MG CAPSULE PO SCH ×4 (07:54→23:43)
[2020-07-19] MEDS: THIAMINE 100 MG TABLET PO SCH (08:28)
[2020-07-19] MEDS: PRENATAL VITAMIN TABLET PO SCH (08:28)
[2020-07-19] MEDS: SODIUM CHLORIDE FLUSH 0.9% 10 ML SYRINGE IVP SCH ×3 (08:29→21:06)
[2020-07-19] MEDS ORDERED: MULTIVITAMIN 10 ML, THIAMINE INJ 100 MG, FOLIC ACID INJ 1 MG in SODIUM CHLORIDE 0.9% 1,... IV SCH (09:00)
--- NOTE | 2020-07-19 09:17 | CT Report ---
PROCEDURE: HEAD WO INDICATIONS: persistent headache TECHNIQUE: Noncontrast 4.5 mm thick angled axial sections acquired from the foramen magnum to the vertex. For r adiation dose reduction, the following was used: automated exposure control, adjustment of mA and/or kV according to patient size. COMPARISON: None. FINDINGS: Image quality: Excellent. CSF spaces: Basal cisterns are patent. No extra-axial fluid collections. Ventricles, cerebral sulc i, and basal cisterns are symmetric in size and morphology. Brain: No midline shift. No intracranial masses or hemorrhage. Mcbride-white matter interface is norm al. There is diffuse cortical volume loss with associated ex vacuo dilatation of the bilateral ventr icles. No acute intracranial hemorrhage or evidence of transcortical infarction. Scattered bilatera l periventricular white matter hypoattenuation likely sequela from chronic small vessel ischemic dise ase. Atherosclerotic calcifications within the intracranial segments of the bilateral internal caroti d arteries are noted. Skull and face: Calvarium and visualized facial bones are intact, without suspicious lesions. Sinuses: Visualized sinuses and mastoids are clear. IMPRESSION: CT head without acute intracranial abnormalities. Stable age-related senescent changes and sequela of chronic small vessel ischemic disease. No significant discrepancy with initial interpretation by overnight radiologist. Reviewed by: Rafi Lamb MD on 07/19/2020 8:16 AM [facility] Approved by: Rafi Lamb MD on 07/19/2020 8:16 AM [facility] Station ID: [id number]
[2020-07-19] MEDS: SODIUM CHLORIDE FLUSH 0.9% 10 ML SYRINGE IVP PRN ×4 (09:29→21:58)
[2020-07-19] MEDS: ZINC OXIDE 20% OINT 30 GM TUBE TOP PRN ×3 (09:40→20:00)
[2020-07-19] MEDS: SODIUM CHLORIDE 0.9% 1,000 ML IV SCH ×2 (10:39→19:39)
--- NOTE | 2020-07-19 10:41 | PHARMACY PROGRESS NOTE ---
- Best Possible Medication History Admit Date and Time: 07/19/20 0515 Processed by: Pharmacy Medication History completed: Yes Patient Interview: Pt unable to participate Secondary Source(s): Physician records, Pharmacy records, Insurance records Additional source for medlist was a discharge list from [facility] in [place]. As the person ultimately responsible for medication therapy, providers are able to order a medication from an existing home medication list in [facility] via the "Reconcile Routine" prior to Confirmation of that medication by marketing support manager. Such practice is discouraged except when the physician, in their clinical judgment, deems that a medical need exists for a medication without regard to previous use.
--- NOTE | 2020-07-19 11:38 | CT Report ---
PROCEDURE: ANGIO CHEST W/WO INDICATIONS: dyspnea, high dimer CONTRAST: IV CONTRAST: Optiray 320 ml: 80 PO CONTRAST: *NO PO CONTRAST TECHNIQUE: After the administration of intravenous contrast, 2 mm thick sections acquired from the pulmonary api goldie to the posterior costophrenic angles. 3-dimensional maximum intensity projection (MIP) coronal a nd sagittal reformats were then acquired through the thorax. For radiation dose reduction, the follow ing was used: automated exposure control, adjustment of mA and/or kV according to patient size. COMPARISON: 12/28/2019 FINDINGS: Image quality: Study limited by suboptimal timing of intravenous contrast and respiratory motion jorge alberto fact most pronounced in the lung bases. Pulmonary arteries: Pulmonary arteries are normal in size, and demonstrate no intraluminal filling d efects to suggest central pulmonary embolism. Lungs and pleura: Mild bibasilar atelectasis. Otherwise, lungs are clear. No pleural effusions or pn eumothorax. Central and peripheral airways are patent. Mediastinum: Heart size is normal, without pericardial effusion. No mediastinal or hilar adenopathy . Thoracic aorta is normal in caliber and enhancement. Esophagus is normal in caliber, without hiat al hernia. Bones and chest wall: No suspicious bony lesions. Ribs and thoracic spine appear intact throughout. The thyroid is normal. No axillary or supraclavicular adenopathy. Ruptured bilateral breast impla nts. Abdomen: Visualized upper abdominal solid organs appear normal in the early arterial phase of enhanc ement. Status post TIPS. IMPRESSION: No acute pulmonary emboli or acute cardiopulmonary abnormalities. Other chronic findings as above. No significant discrepancy with initial interpretation by overnight radiologist. Reviewed by: Rafi Lamb MD on 07/19/2020 10:37 AM [facility] Approved by: Rafi Lamb MD on 07/19/2020 10:37 AM [facility] Station ID: [id number]
--- NOTE | 2020-07-19 11:45 | CT Report ---
PROCEDURE: Abdomen/Pelvis W INDICATIONS: sepsis, abd pain CONTRAST: IV CONTRAST: Optiray 320 ml: 100 PO CONTRAST: *NO PO CONTRAST TECHNIQUE: After the administration of weight appropriate dose of intravenous contrast, 5 mm thick sections acqu ired from the diaphragms to the symphysis. 5 mm thick coronal and sagittal reformats were acquired. For radiation dose reduction, the following was used: automated exposure control, adjustment of mA and/or kV according to patient size. COMPARISON: 10/10/2019 FINDINGS: Image quality: Excellent. ABDOMEN: Lung bases: Patchy bibasilar atelectasis. Heart size is normal. Solid organs: Cirrhotic appearance of the liver with underlying diffuse hepatic steatosis. No definit e focal intrahepatic mass lesions identified. Status post TIPS which appears patent. Gallbladder is unremarkable Biliary system is non dilated. Pancreas enhances normally. No adrenal nodules. Kidne ys demonstrate normal size and enhancement, without hydronephrosis. Peritoneum and bowel: Multiple scattered loops of mildly distended small bowel filled with air and f luid without evidence of bowel wall thickening. No evidence for transition point or obstructive bowel pattern. No free fluid or air. Nodes and vessels: No retroperitoneal or mesenteric adenopathy by size criteria. Aorta and inferior vena cava are normal in size. Miscellaneous: No ventral hernias. PELVIS: Genitourinary: Bladder wall thickness is normal. Miscellaneous: No inguinal hernias or adenopathy. Bones: No suspicious bony lesions. No acute vertebral body compression fractures. Stable chronic co mpression fracture at L2. IMPRESSION: 1. Liver cirrhosis with patent appearing TIPS. 2. Findings consistent with mild ileus. No evidence for bowel obstruction. 3. Diffuse hepatic steatosis. 4. Stable chronic anterior compression fracture at L2. No significant discrepancy with initial interpretation by overnight radiologist. Reviewed by: Rafi Lamb MD on 07/19/2020 10:43 AM [facility] Approved by: Rafi Lamb MD on 07/19/2020 10:43 AM [facility] Station ID: [id number]
[2020-07-19] MEDS: NICOTINE 21 MG PATCH TOP SCH (19:15)
[2020-07-19] MEDS: CEFEPIME 2 GM in SODIUM CHLORIDE 0.9% MINIBAG 100 ML IV SCH ×2 (19:38→23:18)
--- NOTE | 2020-07-19 19:42 | XRAY Report ---
PROCEDURE: Chest 1 View X-Ray INDICATIONS: Fever, eval for pneumonia TECHNIQUE: One view of the chest was acquired. COMPARISON: Single view the chest dated 05/09/2020 FINDINGS: Surgical changes and devices: None. Lungs and pleura: No pleural effusions or pneumothorax. Lungs are clear. Mediastinum: Mediastinal contours appear normal. Heart size is normal. Bones and chest wall: No suspicious bony lesions. Overlying soft tissues appear unremarkable. IMPRESSION: No acute cardial pulmonary findings. Reviewed by: Eli Lomax MD on 07/19/2020 7:40 PM PST Approved by: Eli Lomax MD on 07/19/2020 7:40 PM [facility] Station ID: [id number]
[2020-07-19] MEDS: VANCOMYCIN INJ 1 GM in SODIUM CHLORIDE 0.9% 250 ML IV SCH (21:12)
[2020-07-19] MEDS: LORazepam 100MG/100ML D5W 100 ML IV SCH (23:38)
[2020-07-20] MEDS: ZINC OXIDE 20% OINT 30 GM TUBE TOP PRN ×3 (03:26→20:52)
[2020-07-20] MEDS: SODIUM CHLORIDE 0.9% 1,000 ML IV SCH ×3 (04:02→22:47)
[2020-07-20 05:41] LABS: BASOPHILS % (AUTO) 0.3 %; EOSINOPHILS # (AUTO) 0.1 10^3/uL (0.0-0.7); EOSINOPHILS % (AUTO) 2.3 %; LYMPHOCYTES # (AUTO) 1.1 10^3/uL (1.5-3.5); LYMPHOCYTES % (AUTO) 27.9 %; MEAN CORPUSCULAR HEMOGLOBIN 27.9 pg (27.0-31.0); MEAN CORPUSCULAR HGB CONC 33.2 g/dL (32.0-36.0); MEAN CORPUSCULAR VOLUME 84.1 fL (81.0-99.0); MONOCYTES # (AUTO) 0.5 10^3/uL (0.0-1.0); MONOCYTES % (AUTO) 11.3 %; NEUTROPHILS # (AUTO) 2.3 10^3/uL (1.5-6.6); NEUTROPHILS % (AUTO) 57.9 %; PLT - PLATELET COUNT 43 10^3/uL (130-450); RED BLOOD COUNT 3.58 10^6/uL (4.20-5.40); RED CELL DISTRIBUTION WIDTH 21.7 % (12.0-15.0)
[2020-07-20 05:57] LABS: INR 1.5 (0.8-1.2); PT - PROTHROMBIN TIME 16.3 secs (9.9-12.6)
[2020-07-20 06:01] LABS: ALBUMIN 2.8 g/dL (3.2-5.5); ALBUMIN/GLOBULIN RATIO 0.9 (1.0-2.2); ALKALINE PHOSPHATASE 261 IU/L (42-121); ALT ALANINE AMINOTRANSFERASE 74 IU/L (10-60); AST ASPARTATE AMINOTRANSFERASE 214 IU/L (10-42); BILIRUBIN,TOTAL 1.8 mg/dL (0.2-1.0); BUN - BLOOD UREA NITROGEN < 5 mg/dL (6-20); CALCIUM 8.1 mg/dL (8.5-10.3); CARBON DIOXIDE - CO2 27 mmol/L (21-32); CHLORIDE 103 mmol/L (101-111); CREATININE 0.3 mg/dL (0.4-1.0); GLUCOSE 132 mg/dL (70-100); LIPASE 197 U/L (22-51); SODIUM 138 mmol/L (135-145)
[2020-07-20 06:16] LABS: PLATELET ESTIMATE, MANUAL DECREASED (<130,000) (NORMAL); PLATELET MORPHOLOGY NORMAL APPEARANCE (NORMAL)
[2020-07-20] MEDS: PANTOPRAZOLE 40 MG TABLET PO SCH ×3 (07:00→09:30)
[2020-07-20] MEDS: chlordiazePOXIDE 25 MG CAPSULE PO SCH ×6 (07:00→23:30)
[2020-07-20] MEDS ORDERED: LIDOCAINE PATCH 5% TOP PRN (07:55)
--- NOTE | 2020-07-20 08:00 | PROVIDER PROGRESS NOTE ---
Assessment/Plan - Problem List (1) Alcohol withdrawal Assessment/Plan: Yesterday at 1900, she began to hallucinate. All day yesterday her CIWA score was 17-19 and she had to be increased to the higher dose of IV Ativan from 1 mg every 30 minutes to 2 mg every 30 minutes. Because of the hallucination she was transferred to the ICU overnight. She is on IV Ativan drip now. Will change her diet from regular diet down to full liquids, she does awaken slightly to swallow. We will put her on a banana bag IV hydration, stop the p.o. thiamine and other p.o. meds, switch to IV forms if possible. (2) SIRS (systemic inflammatory response syndrome) Assessment/Plan: She continues to have signs of inflammation with her fever, and infection (bacteremia). Continue with empiric antibiotics and IV fluids (3) Gram-positive bacteremia Assessment/Plan: The source is not known. She was started on empiric cefepime and vancomycin which had also been first given in the ER. Continue to monitor VS and labs and treat the infection (4) Cirrhosis Assessment/Plan: CT of the abdomen was done and showed cirrhosis of the of the liver, no ascites and otherwise on normal abdomen exam. (5) Thrombocytopenia Assessment/Plan: Platelet count is low, often seen with alcoholism. She is not on any empiric anticoagulants for DVT prophylaxis. Follow CBC daily (6) Hypokalemia Assessment/Plan: Related to poor p.o. intake and a patient who is alcoholic. Replace. Follow all her electrolytes including magnesium and calcium, replace with the ICU protocol now (8) Alcohol abuse Assessment/Plan: We will change her oral thiamine to banana bag with thiamine and multivitamins. Continue to treat the current alcohol withdrawal. Social work consult will be needed when she is medically cleared for managing alcohol abuse (9) Diffuse pain Assessment/Plan: On presentation, when she was verbal, she gave a positive review of systems to every part of her body that was in pain. There is a suspicion of withdrawal from other drug use therefore Will use lidocaine patch but no stronger medications at this time. (10) History of substance abuse Assessment/Plan: At this time it is unclear what other substance she was abusing (11) Chronic pancreatitis due to acute alcohol intoxication Assessment/Plan: Lipase was elevated, is slightly improved by daily labs. Continue with IV hydration, continue with easy to digest diet for bowel rest. Follow lipase daily. (12) Tobacco use Assessment/Plan: A Nicotine patch 21 mg was started yesterday (13) MRSA carrier Assessment/Plan: He is ordered to get topical alcohol nasal treatment now. (14) Lactic acidosis Assessment/Plan: Resolved - Current Meds Current Meds: Current Medications Generic Name Dose Route Start Last Admin Trade Name Freq PRN Reason Stop Dose Admin Chlordiazepoxide HCl 25 mg 07/19/20 08:00 07/19/20 23:43 Librium PO 25 mg Q6HR MEDARDO Administration Sodium Chloride 1,000 mls @ 100 mls/hr 07/19/20 06:00 07/20/20 06:00 Normal Saline 0.9% IV 100 mls/hr .Q10H MEDARDO Infusion Cefepime HCl 2 gm/ Sodium 100 mls @ 200 mls/hr 07/19/20 19:09 07/19/20 23:18 Chloride IV Not Given BID MEDARDO Vancomycin HCl 1 gm/ Sodium 250 mls @ 167 mls/hr 07/19/20 20:00 07/19/20 23:55 Chloride IV Infused Q12H MEDARDO Infusion Lorazepam 100 mls @ 5 mls/hr 07/19/20 23:00 07/20/20 06:00 Ativan IV 4 mg/hr .Q20H MEDARDO 4 mls/hr Titration Protocol 5 MG/HR Multi-Ingredient Ointment 1 applic 07/19/20 07:36 07/20/20 03:26 Zinc Oxide TOP 1 applic PRN PRN Administration Skin Care Nicotine 1 patch 07/19/20 18:29 07/19/20 19:15 Nicoderm TOP 1 patch DAILY MEDARDO Administration Pantoprazole Sodium 40 mg 07/19/20 07:00 07/19/20 07:01 Protonix PO 40 mg QDAC MEDARDO Administration Multivit/Folic Acid/Iron 1 tab 07/19/20 09:00 07/19/20 08:28 Trinatal Rx 1 PO 1 tab DAILY MEDARDO Administration Sodium Chloride 10 ml 07/19/20 05:15 07/19/20 21:58 Normal Saline Flush 0.9% IVP 10 ml PRN PRN Administration NEEDED PER PROVIDER ORDERS Sodium Chloride 10 ml 07/19/20 09:00 07/19/20 21:06 Normal Saline Flush 0.9% IVP 10 ml 0100,0900,1700 MEDARDO Administration Thiamine HCl 100 mg 07/19/20 09:00 07/19/20 08:28 Vitamin B-1 PO 100 mg DAILY MEDARDO Administration - Lab Result Fish Bone Diagrams: 07/20/20 04:40 07/20/20 04:40 - Additional Planning My Orders: My Active Orders 07/19/20 18:29 Nicotine 21 mg Patch [Nicoderm] 1 patch TOP DAILY 07/19/20 19:07 Vancomycin: Pharmacy To Dose [Vancomycin-Pharmacy To Dose] 1 each MC ONCE PRN 07/19/20 19:09 Cefepime 2 gm Sodium Chloride 0.9% Minibag [Normal Saline 0.9% Minibag] 100 ml IV BID 07/20/20 07:27 Initiate ICU Electrolyte Prot. [RC] QSHIFT 07/20/20 07:29 Acetaminophen [Tylenol] 650 mg PO Q4HR PRN 07/20/20 07:55 Lidocaine Patch 5% [Lidoderm Patch] 1 patch TOP DAILY PRN 07/21/20 05:00 AMMONIA [CHEM] DAILYLAB Subjective - Subjective Patient Reports: Other (She is obtunded, slurring and whispering with her speech, in the ICU on Ativan drip. When asked about pain, she points to her forehead.) Nursing Reports: Other (He is only taking liquids, not eating solids and has very slow muscle movement.) Objective Vital Signs: Vital Signs - 24 hr 07/19/20 07/19/20 07/19/20 08:00 12:01 16:00 Temperature 37.1 C 37.2 C 37.2 C Heart Rate [ Monitoring electrodes] Heart Rate [ 105 H 113 H 108 H Radial] Respiratory 18 16 20 Rate Blood Pressure [Left Brachial artery] Blood Pressure 111/51 L 118/67 119/66 [Right Brachial artery] O2 Saturation 95 95 94 07/19/20 07/19/20 07/20/20 21:00 23:15 00:00 Temperature 37.1 C 37.6 C H Heart Rate [ 98 100 Monitoring electrodes] Heart Rate [ 114 H Radial] Respiratory 16 17 18 Rate Blood Pressure 118/71 125/86 H [Left Brachial artery] Blood Pressure 114/69 [Right Brachial artery] O2 Saturation 97 98 99 07/20/20 07/20/20 07/20/20 01:00 04:00 06:06 Temperature Heart Rate [ 94 91 94 Monitoring electrodes] Heart Rate [ Radial] Respiratory 22 24 21 Rate Blood Pressure 121/66 119/68 112/66 [Left Brachial artery] Blood Pressure [Right Brachial artery] O2 Saturation 98 100 99 07/20/20 07:06 Temperature Heart Rate [ 92 Monitoring electrodes] Heart Rate [ Radial] Respiratory 24 Rate Blood Pressure 118/62 [Left Brachial artery] Blood Pressure [Right Brachial artery] O2 Saturation 95 Oxygen O2 Source Room air I&O (Last 24 Hrs): Intake and Output Totals x24h 07/18/20 07/19/20 07/20/20 23:59 23:59 23:59 Intake Total 1370 5550.200 1805.767 Output Total 300 1750 300 Balance 1070 3800.200 1505.767 General: Other (Lethargic (is on iv Ativan drip)) HEENT: Mucous membr. moist/pink, Other (Disheveled and poorly kempt) Neck: Supple, No JVD Neuro: Speech Slurred, Other (Lethargic (on IV Ativan drip)) Cardiovascular: Regular rate Respiratory: No respiratory distress Abdomen: Soft - Results Results: Laboratory Results WBC 4.0 x10^3/uL (4.8-10.8) L 07/20/20 04:40 RBC 3.58 10^6/uL (4.20-5.40) L 07/20/20 04:40 Hgb 10.0 g/dL (12.0-16.0) L 07/20/20 04:40 Hct 30.1 % (37.0-47.0) L 07/20/20 04:40 MCV 84.1 fL (81.0-99.0) 07/20/20 04:40 MCH 27.9 pg (27.0-31.0) 07/20/20 04:40 MCHC 33.2 g/dL (32.0-36.0) 07/20/20 04:40 RDW 21.7 % (12.0-15.0) H 07/20/20 04:40 Plt Count 43 10^3/uL (130-450) L 07/20/20 04:40 MPV 10.1 fL (7.9-10.8) 07/18/20 21:15 Neut # (Auto) 2.3 10^3/uL (1.5-6.6) 07/20/20 04:40 Lymph # (Auto) 1.1 10^3/uL (1.5-3.5) L 07/20/20 04:40 Payne # (Auto) 0.5 10^3/uL (0.0-1.0) 07/20/20 04:40 Eos # (Auto) 0.1 10^3/uL (0.0-0.7) 07/20/20 04:40 Baso # (Auto) 0.0 10^3/uL (0.0-0.1) 07/20/20 04:40 Absolute Nucleated RBC 0.00 x10^3/uL 07/20/20 04:40 Nucleated RBC % 0.0 /100WBC 07/20/20 04:40 Manual Slide Review Indicated 07/20/20 04:40 WBC Morphology NORMAL APPEARANCE (NORMAL) 07/20/20 04:40 Platelet Estimate DECREASED (<130,000) (NORMAL) 07/20/20 04:40 Platelet Morphology NORMAL APPEARANCE (NORMAL) 07/20/20 04:40 RBC Morph Micro Appear 2+ ANISOCYTOSIS (NORMAL) 1+ HYPOCHROMASIA (NORMAL) 07/20/20 04:40 RBC Morph Micro Appear 2+ ANISOCYTOSIS (NORMAL) 1+ HYPOCHROMASIA (NORMAL) 07/20/20 04:40 PT 16.3 secs (9.9-12.6) H 07/20/20 04:40 INR 1.5 (0.8-1.2) H 07/20/20 04:40 D-Dimer 658.7 ng/mL (200.0-255.0) H 07/18/20 21:15 VBG pH 7.335 (7.31-7.41) 07/18/20 21:52 VBG pCO2 21.4 mmHg (41-51) L 07/18/20 21:52 VBG pO2 57.5 mmHg (25-47) H 07/18/20 21:52 VBG HCO3 11.2 mmol/L (23-28) L 07/18/20 21:52 VBG Total CO2 11.8 mmol/L (24-29) L 07/18/20 21:52 VBG O2 Saturation 85.5 % (60-80) H 07/18/20 21:52 VBG Base Excess -13.6 mmol/L (-2 - +2) L 07/18/20 21:52 Sodium 138 mmol/L (135-145) 07/20/20 04:40 Potassium 2.7 mmol/L (3.5-5.0) L 07/20/20 04:40 Chloride 103 mmol/L (101-111) 07/20/20 04:40 Carbon Dioxide 27 mmol/L (21-32) 07/20/20 04:40 Anion Gap 8.0 (6-13) 07/20/20 04:40 BUN < 5 mg/dL (6-20) L 07/20/20 04:40 Creatinine 0.3 mg/dL (0.4-1.0) L 07/20/20 04:40 Estimated GFR (MDRD) 228 (>89) 07/20/20 04:40 Glucose 132 mg/dL (70-100) H 07/20/20 04:40 Lactic Acid 1.7 mmol/L (0.5-2.2) 07/19/20 13:15 Calcium 8.1 mg/dL (8.5-10.3) L 07/20/20 04:40 Total Bilirubin 1.8 mg/dL (0.2-1.0) H 07/20/20 04:40 AST 214 IU/L (10-42) H 07/20/20 04:40 ALT 74 IU/L (10-60) H 07/20/20 04:40 Alkaline Phosphatase 261 IU/L (42-121) H 07/20/20 04:40 Ammonia 41.0 umol/L (7-35) H 07/20/20 04:40 B-Natriuretic Peptide 18 pg/mL (5-100) 07/18/20 21:15 Total Protein 6.0 g/dL (6.7-8.2) L 07/20/20 04:40 Albumin 2.8 g/dL (3.2-5.5) L 07/20/20 04:40 Globulin 3.2 g/dL (2.1-4.2) 07/20/20 04:40 Albumin/Globulin Ratio 0.9 (1.0-2.2) L 07/20/20 04:40 Lipase 197 U/L (22-51) H 07/20/20 04:40 Urine Color YELLOW 07/18/20 21:40 Urine Clarity CLEAR (CLEAR) 07/18/20 21:40 Urine pH 6.5 PH (5.0-7.5) 07/18/20 21:40 Ur Specific [place] 1.020 (1.002-1.030) 07/18/20 21:40 Urine Protein NEGATIVE mg/dL (NEGATIVE) 07/18/20 21:40 Urine Glucose (UA) NEGATIVE mg/dL (NEGATIVE) 07/18/20 21:40 Urine Ketones NEGATIVE mg/dL (NEGATIVE) 07/18/20 21:40 Urine Occult Blood NEGATIVE (NEGATIVE) 07/18/20 21:40 Urine Nitrite NEGATIVE (NEGATIVE) 07/18/20 21:40 Urine Bilirubin NEGATIVE (NEGATIVE) 07/18/20 21:40 Urine Urobilinogen 0.2 (NORMAL) E.U./dL (NORMAL) 07/18/20 21:40 Ur Leukocyte Esterase NEGATIVE (NEGATIVE) 07/18/20 21:40 Ur Microscopic Review NOT INDICATED 07/18/20 21:40 Urine Culture Comments NOT INDICATED 07/18/20 21:40 Nasal Screen MRSA (PCR) POSITIVE (NEGATIVE) A* 07/19/20 23:10 Urine Opiates Screen NEGATIVE (NEGATIVE) 07/18/20 21:40 Ur Oxycodone Screen NEGATIVE (NEGATIVE) 07/18/20 21:40 Urine Methadone Screen NEGATIVE (NEGATIVE) 07/18/20 21:40 Ur Propoxyphene Screen NEGATIVE (NEGATIVE) 07/18/20 21:40 Ur Barbiturates Screen NEGATIVE (NEGATIVE) 07/18/20 21:40 Ur Tricyclics Screen NEGATIVE (NEGATIVE) 07/18/20 21:40 Ur Phencyclidine Scrn NEGATIVE (NEGATIVE) 07/18/20 21:40 Ur Amphetamine Screen NEGATIVE (NEGATIVE) 07/18/20 21:40 U Methamphetamines Scrn NEGATIVE (NEGATIVE) 07/18/20 21:40 U Benzodiazepines Scrn NEGATIVE (NEGATIVE) 07/18/20 21:40 Urine Cocaine Screen NEGATIVE (NEGATIVE) 07/18/20 21:40 U Cannabinoids Screen NEGATIVE (NEGATIVE) 07/18/20 21:40 Ethyl Alcohol 412.2 mg/dL 07/18/20 21:15 Serum Ketones NEGATIVE (NEGATIVE) 07/18/20 21:15 SARS-CoV-2 (PCR) NOT DETECTED 07/18/20 22:21 - Procedures Procedures: Procedures (02/11/19) DRAINAGE OF PERITONEAL CAVITY, PERCUTANEOUS APPROACH, DIAGN (12/06/18) Sepsis Event Note (H) - Sepsis Criteria Sepsis Criteria: Recorded Heart Rate greater than 90 bpm, Recorded Respiratory Rate greater than 20, Metabolic: lactate > 2 mmol/L
[2020-07-20] MEDS: VANCOMYCIN INJ 1 GM in SODIUM CHLORIDE 0.9% 250 ML IV SCH ×2 (08:35→20:31)
[2020-07-20] MEDS: NICOTINE 21 MG PATCH TOP SCH (09:20)
[2020-07-20] MEDS: ethyl alcohoL 62% SWAB AMPULE NAS SCH ×2 (09:29→20:51)
[2020-07-20] MEDS: SODIUM CHLORIDE FLUSH 0.9% 10 ML SYRINGE IVP SCH ×2 (09:42→17:05)
[2020-07-20] MEDS: POTASSIUM CHLORIDE 20 MEQ TABLET PO SCH ×2 (09:43→12:29)
[2020-07-20] MEDS: THIAMINE 100 MG TABLET PO SCH (09:54)
[2020-07-20] MEDS: PRENATAL VITAMIN TABLET PO SCH (09:54)
[2020-07-20] MEDS: CEFEPIME 2 GM in SODIUM CHLORIDE 0.9% MINIBAG 100 ML IV SCH ×2 (10:05→21:51)
--- NOTE | 2020-07-20 14:01 | PHARMACY PROGRESS NOTE ---
- Therapy Status Vancomycin regimen day #: 2 Therapy status: Awaiting steady state Basis for treatment: Empirical Treatment indication: Sepsis Concurrent antibiotics: Cefepime - FLORINDA Risk Risk level for Acute Kidney Injury: Moderate Acute Kidney Injury risk factors: Goal trough >15, Sepsis - Monitoring and Recommendation Clinical response to treatment: I&O Previous 24 hours 07/18/20 07/19/20 07/20/20 23:59 23:59 23:59 Intake Total 1370 5550.200 2945.100 Output Total 300 1750 900 Balance 1070 3800.200 2045.100 Lab Results 07/20/20 07/18/20 04:40 21:15 BUN < 5 L 9 Creatinine 0.3 L 0.3 L Estimated GFR (MDRD) 228 228 Cultures 07/19/20 01:30 Blood Blood Culture - Preliminary 07/19/20 01:35 Blood Blood Culture - Preliminary NO GROWTH AFTER 1 DAY Monitoring plan: Daily serum creatinine, Suggest ongoing fluid replacement Next trough due prior to maintenance dose #: 6 Next trough due (date/time): 07/22/20 @ 0730 Areas for additional monitoring: IV to PO when appropriate, Therapy de- escalation based on culture results Pharmacy recommendation: Continue current regime
[2020-07-20] MEDS: MULTIVITAMIN 10 ML, FOLIC ACID INJ 1 MG, THIAMINE INJ 100 MG, MAGNESIUM SULFATE 2 GM in... IV SCH ×5 (15:03)
[2020-07-20] MEDS: LORazepam 100MG/100ML D5W 100 ML IV SCH (19:14)
[2020-07-21] MEDS: SODIUM CHLORIDE FLUSH 0.9% 10 ML SYRINGE IVP SCH ×3 (00:28→18:17)
[2020-07-21] MEDS: SODIUM CHLORIDE 0.9% 1,000 ML IV SCH ×3 (01:50→18:19)
[2020-07-21] MEDS: ZINC OXIDE 20% OINT 30 GM TUBE TOP PRN ×2 (02:15→05:00)
[2020-07-21] MEDS ORDERED: PHENOL THROAT SPRAY 177 ML MM PRN (03:30)
[2020-07-21 04:16] LABS: VBG PH 7.51 (7.31-7.41)
[2020-07-21 04:18] LABS: BASOPHILS % (AUTO) 0.5 %; EOSINOPHILS # (AUTO) 0.1 10^3/uL (0.0-0.7); EOSINOPHILS % (AUTO) 3.8 %; HGB - HEMOGLOBIN 10.2 g/dL (12.0-16.0); LYMPHOCYTES % (AUTO) 27.9 %; MEAN CORPUSCULAR HEMOGLOBIN 28.1 pg (27.0-31.0); MEAN CORPUSCULAR HGB CONC 32.9 g/dL (32.0-36.0); MEAN CORPUSCULAR VOLUME 85.4 fL (81.0-99.0); MONOCYTES # (AUTO) 0.3 10^3/uL (0.0-1.0); MONOCYTES % (AUTO) 9.3 %; NEUTROPHILS # (AUTO) 2.1 10^3/uL (1.5-6.6); NEUTROPHILS % (AUTO) 58.2 %; PLT - PLATELET COUNT 52 10^3/uL (130-450); RED BLOOD COUNT 3.63 10^6/uL (4.20-5.40); RED CELL DISTRIBUTION WIDTH 21.9 % (12.0-15.0); WHITE BLOOD COUNT 3.7 x10^3/uL (4.8-10.8)
[2020-07-21 04:29] LABS: ALBUMIN 2.8 g/dL (3.2-5.5); ALBUMIN/GLOBULIN RATIO 0.8 (1.0-2.2); ALKALINE PHOSPHATASE 270 IU/L (42-121); ALT ALANINE AMINOTRANSFERASE 88 IU/L (10-60); AST ASPARTATE AMINOTRANSFERASE 197 IU/L (10-42); BILIRUBIN,TOTAL 1.4 mg/dL (0.2-1.0); BUN - BLOOD UREA NITROGEN < 5 mg/dL (6-20); CALCIUM 7.9 mg/dL (8.5-10.3); CARBON DIOXIDE - CO2 23 mmol/L (21-32); CHLORIDE 107 mmol/L (101-111); CREATININE 0.3 mg/dL (0.4-1.0); GLUCOSE 109 mg/dL (70-100); LIPASE 142 U/L (22-51); SODIUM 138 mmol/L (135-145); TOTAL PROTEIN 6.1 g/dL (6.7-8.2)
[2020-07-21 04:39] LABS: PLATELET ESTIMATE, MANUAL DECREASED (<130,000) (NORMAL); PLATELET MORPHOLOGY NORMAL APPEARANCE (NORMAL)
[2020-07-21] MEDS ORDERED: DEXTROSE 5% 50 ML IV ONE (04:57)
[2020-07-21] MEDS: LORazepam 100MG/100ML D5W 100 ML IV SCH ×3 (05:50→18:18)
[2020-07-21] MEDS ORDERED: POTASSIUM CHLORIDE 20 MEQ TABLET PO ONE (06:07)
[2020-07-21] MEDS: PANTOPRAZOLE 40 MG TABLET PO SCH (06:51)
[2020-07-21] MEDS: chlordiazePOXIDE 25 MG CAPSULE PO SCH ×4 (06:51→23:28)
[2020-07-21] MEDS: NICOTINE 21 MG PATCH TOP SCH (08:24)
[2020-07-21] MEDS: NEUTRA-PHOS 250 MG TABLET PO SCH ×2 (08:24→12:46)
[2020-07-21] MEDS: PRENATAL VITAMIN TABLET PO SCH (08:24)
[2020-07-21] MEDS: ethyl alcohoL 62% SWAB AMPULE NAS SCH ×2 (08:26→20:53)
[2020-07-21] MEDS: CEFEPIME 2 GM in SODIUM CHLORIDE 0.9% MINIBAG 100 ML IV SCH ×2 (08:40→21:08)
[2020-07-21] MEDS: THIAMINE 100 MG TABLET PO SCH (08:46)
[2020-07-21] MEDS: VANCOMYCIN INJ 1 GM in SODIUM CHLORIDE 0.9% 250 ML IV SCH ×2 (10:23→20:44)
[2020-07-21] MEDS: MULTIVITAMIN 10 ML, FOLIC ACID INJ 1 MG, THIAMINE INJ 100 MG, MAGNESIUM SULFATE 2 GM in... IV SCH ×5 (12:20)
--- NOTE | 2020-07-21 19:31 | PROVIDER PROGRESS NOTE ---
Assessment/Plan - Problem List (1) SIRS (systemic inflammatory response syndrome) Assessment/Plan: Patient made SIRS criteria upon admission by virtue of lactic acidosis, tachypnea, tachycardia and a temperature of 38 C. As a result she was on vancomycin and cefepime. Preliminary is on 1 bottle of the patient's blood cultures grew gram-positive cocci which were later confirmed to be coagulase-negative staph aureus. It is likely that this is a contaminant. As a result antibiotics were discontinued on July 21, 2020. (2) Alcohol withdrawal Assessment/Plan: Patient was initially admitted to the [facility] floor on CIWA protocol, Librium 25 mg p.o. every 6 hours. However she consistently was scoring 17-19 on the CIWA scoring. As a result she was transferred to the ICU and placed on Ativan drip this has steadily been titrated up to 14. Patient was initially significantly tremulous however this has considerably improved over the past couple of days. Despite this dose of Ativan she is still very much awake. The goal would be to start titrating her down to wean her off of the Ativan drip. (3) Sinus tachycardia Assessment/Plan: This was likely related to patient's alcohol withdrawal. It is resolved. (4) Lactic acidosis Assessment/Plan: Resolved (5) Alcoholism /alcohol abuse Assessment/Plan: Currently on CIWA protocol. Receiving a banana bag. On Librium 25 mg p.o. every 6 hours. (6) Pancreatitis, chronic Qualifiers: Pancreatitis type: alcohol induced Qualified Code(s): K86.0 - Alcohol- induced chronic pancreatitis (7) Cirrhosis Assessment/Plan: CT abdomen pelvis done on July 19, 2020 showed a patent appearing TIPS. There was also diffuse hepatic steatosis. Lipase has not been higher than 197. Patient has mild elevated liver enzymes. (8) Somnolence Assessment/Plan: Suspect Ativan drip and librium are strongly contributing to this. The goal would be to titrate and wean off Ativan considering patient is no longer significantly tremulous. We will also decrease Librium frequency from q6hrs to bid. Lactulose 10 mg p.o. twice daily has also been ordered. Patient's ammonia level was 52. We will recheck with a.m. labs. - Current Meds Current Meds: Current Medications Generic Name Dose Route Start Last Admin Trade Name Freq PRN Reason Stop Dose Admin Alcohol 1 amp 07/20/20 09:00 07/21/20 08:26 Nozin ALLI 1 amp BID MEDARDO Administration Chlordiazepoxide HCl 25 mg 07/19/20 08:00 07/21/20 18:39 Librium PO 25 mg Q6HR MEDARDO Administration Sodium Chloride 1,000 mls @ 100 mls/hr 07/19/20 06:00 07/21/20 18:19 Normal Saline 0.9% IV Not Given .Q10H MEDARDO Cefepime HCl 2 gm/ Sodium 100 mls @ 200 mls/hr 07/19/20 19:09 07/21/20 09:10 Chloride IV Infused BID MEDARDO Infusion Vancomycin HCl 1 gm/ Sodium 250 mls @ 167 mls/hr 07/19/20 20:00 07/21/20 11:53 Chloride IV Infused Q12H MEDARDO Infusion Lorazepam 100 mls @ 5 mls/hr 07/19/20 23:00 07/21/20 18:18 Ativan IV 14 mg/hr .Q20H MEDARDO 14 mls/hr Administration Protocol 5 MG/HR Multivitamins 10 ml/ Folic 1,015.2 mls @ 100 mls/hr 07/20/20 15:00 07/21/20 12:20 Acid 1 mg/ Thiamine HCl 100 mg IV 100 mls/hr / Magnesium Sulfate 2 gm/ DAILY MEDARDO Administration Sodium Chloride Lidocaine 1 patch 07/20/20 07:55 07/20/20 20:51 Lidoderm Patch TOP 1 patch DAILY PRN Administration PAIN Multi-Ingredient Ointment 1 applic 07/19/20 07:36 07/21/20 05:00 Zinc Oxide TOP 1 applic PRN PRN Administration Skin Care Nicotine 1 patch 07/19/20 18:29 07/21/20 08:24 Nicoderm TOP 1 patch DAILY MEDARDO Administration Pantoprazole Sodium 40 mg 07/19/20 07:00 07/21/20 06:51 Protonix PO 40 mg QDAC MEDARDO Administration Sodium Chloride 10 ml 07/19/20 05:15 07/19/20 21:58 Normal Saline Flush 0.9% IVP 10 ml PRN PRN Administration NEEDED PER PROVIDER ORDERS Sodium Chloride 10 ml 07/19/20 09:00 07/21/20 18:17 Normal Saline Flush 0.9% IVP Not Given 0100,0900,1700 MEDARDO - Lab Result Fish Bone Diagrams: 07/21/20 04:05 07/21/20 04:05 - Additional Planning My Orders: My Active Orders 07/21/20 03:30 Phenol [Chloraseptic] 2 sprays MM Q2HR PRN 07/22/20 05:00 CALCIUM, IONIZED ([facility]) [BG] DAILYLAB CBC - COMP BLD CT W/AUTO DIFF [HEME] DAILYLAB COMPREHENSIVE METABOLIC PANEL [CHEM] DAILYLAB LIPASE [CHEM] DAILYLAB PHOSPHORUS [CHEM] DAILYLAB 07/22/20 07:30 VANCOMYCIN TROUGH [CHEM] Timed 07/23/20 05:00 CALCIUM, IONIZED ([facility]) [BG] DAILYLAB CBC - COMP BLD CT W/AUTO DIFF [HEME] DAILYLAB COMPREHENSIVE METABOLIC PANEL [CHEM] DAILYLAB PHOSPHORUS [CHEM] DAILYLAB 07/24/20 05:00 CBC - COMP BLD CT W/AUTO DIFF [HEME] DAILYLAB COMPREHENSIVE METABOLIC PANEL [CHEM] DAILYLAB Subjective - Subjective Patient Reports: Other (Patient is slightly somnolent however her level of weakness is impressive given that she is on Ativan at 14 mg/h. She is still able to tell where she is and why. She always complains of generalized pain. Her tremulousness is markedly improved.) Objective Vital Signs: Vital Signs - 24 hr 07/20/20 07/20/20 07/20/20 20:00 21:00 22:00 Temperature 36.5 C Heart Rate [ 95 83 96 Monitoring electrodes] Respiratory 19 25 H 20 Rate Blood Pressure 124/75 116/69 127/99 H [Left Brachial artery] O2 Saturation 98 99 07/20/20 07/21/20 07/21/20 23:00 00:00 01:00 Temperature 36.8 C 36.8 C Heart Rate [ 93 93 93 Monitoring electrodes] Respiratory 21 22 14 Rate Blood Pressure 116/71 113/85 H 129/56 L [Left Brachial artery] O2 Saturation 99 99 99 07/21/20 07/21/20 07/21/20 02:00 03:00 04:00 Temperature 37.4 C Heart Rate [ 89 84 90 Monitoring electrodes] Respiratory 18 21 18 Rate Blood Pressure 116/68 115/72 118/74 [Left Brachial artery] O2 Saturation 97 96 99 07/21/20 07/21/20 07/21/20 05:26 06:00 07:00 Temperature 36.8 C Heart Rate [ 89 87 87 Monitoring electrodes] Respiratory 21 18 18 Rate Blood Pressure 121/67 101/62 [Left Brachial artery] O2 Saturation 07/21/20 07/21/20 07/21/20 08:00 09:00 10:00 Temperature 36.4 C L Heart Rate [ 90 92 85 Monitoring electrodes] Respiratory 20 18 26 H Rate Blood Pressure 125/71 119/65 119/66 [Left Brachial artery] O2 Saturation 97 97 95 07/21/20 07/21/20 07/21/20 11:00 12:00 13:00 Temperature 36.8 C Heart Rate [ 83 90 91 Monitoring electrodes] Respiratory 20 19 16 Rate Blood Pressure 101/65 119/70 113/93 H [Left Brachial artery] O2 Saturation 99 99 98 07/21/20 07/21/20 07/21/20 14:00 15:00 16:00 Temperature Heart Rate [ 84 84 87 Monitoring electrodes] Respiratory 17 20 17 Rate Blood Pressure 118/68 122/69 107/60 [Left Brachial artery] O2 Saturation 99 100 99 07/21/20 07/21/20 17:00 18:00 Temperature Heart Rate [ 86 90 Monitoring electrodes] Respiratory 21 23 Rate Blood Pressure 100/65 107/63 [Left Brachial artery] O2 Saturation 98 97 Oxygen O2 Source Room air I&O (Last 24 Hrs): Intake and Output Totals x24h 07/19/20 07/20/20 07/21/20 23:59 23:59 23:59 Intake Total 5550.200 5087.083 2472.600 Output Total 1750 2400 1575 Balance 3800.200 2687.083 897.600 General: Oriented x3, Other (Somnolent) HEENT: PERRLA, EOMI Neck: Supple, No JVD Cardiovascular: Regular rate Respiratory: Chest non-tender, No respiratory distress, Breath sounds nml Abdomen: Normal bowel sounds, Soft, No tenderness Extremities: No clubbing, No cyanosis, No edema - Results Results: Laboratory Results WBC 3.7 x10^3/uL (4.8-10.8) L 07/21/20 04:05 RBC 3.63 10^6/uL (4.20-5.40) L 07/21/20 04:05 Hgb 10.2 g/dL (12.0-16.0) L 07/21/20 04:05 Hct 31.0 % (37.0-47.0) L 07/21/20 04:05 MCV 85.4 fL (81.0-99.0) 07/21/20 04:05 MCH 28.1 pg (27.0-31.0) 07/21/20 04:05 MCHC 32.9 g/dL (32.0-36.0) 07/21/20 04:05 RDW 21.9 % (12.0-15.0) H 07/21/20 04:05 Plt Count 52 10^3/uL (130-450) L 07/21/20 04:05 MPV 10.1 fL (7.9-10.8) 07/18/20 21:15 Neut # (Auto) 2.1 10^3/uL (1.5-6.6) 07/21/20 04:05 Lymph # (Auto) 1.0 10^3/uL (1.5-3.5) L 07/21/20 04:05 [place] # (Auto) 0.3 10^3/uL (0.0-1.0) 07/21/20 04:05 Eos # (Auto) 0.1 10^3/uL (0.0-0.7) 07/21/20 04:05 Baso # (Auto) 0.0 10^3/uL (0.0-0.1) 07/21/20 04:05 Absolute Nucleated RBC 0.00 x10^3/uL 07/21/20 04:05 Nucleated RBC % 0.0 /100WBC 07/21/20 04:05 Manual Slide Review Indicated 07/21/20 04:05 WBC Morphology NORMAL APPEARANCE (NORMAL) 07/20/20 04:40 Platelet Estimate DECREASED (<130,000) (NORMAL) 07/21/20 04:05 Platelet Morphology NORMAL APPEARANCE (NORMAL) 07/21/20 04:05 RBC Morph Micro Appear 1+ HYPOCHROMASIA (NORMAL) 2+ ANISOCYTOSIS (NORMAL) 07/21/20 04:05 RBC Morph Micro Appear 1+ HYPOCHROMASIA (NORMAL) 2+ ANISOCYTOSIS (NORMAL) 07/21/20 04:05 PT 16.3 secs (9.9-12.6) H 07/20/20 04:40 INR 1.5 (0.8-1.2) H 07/20/20 04:40 D-Dimer 658.7 ng/mL (200.0-255.0) H 07/18/20 21:15 VBG pH 7.510 (7.31-7.41) H 07/21/20 04:05 VBG pCO2 21.4 mmHg (41-51) L 07/18/20 21:52 VBG pO2 57.5 mmHg (25-47) H 07/18/20 21:52 VBG HCO3 11.2 mmol/L (23-28) L 07/18/20 21:52 VBG Total CO2 11.8 mmol/L (24-29) L 07/18/20 21:52 VBG O2 Saturation 85.5 % (60-80) H 07/18/20 21:52 VBG Base Excess -13.6 mmol/L (-2 - +2) L 07/18/20 21:52 Ionized Calcium 1.08 mmol/L (1.15-1.33) L 07/21/20 04:05 Sodium 138 mmol/L (135-145) 07/21/20 04:05 Potassium 3.2 mmol/L (3.5-5.0) L 07/21/20 04:05 Chloride 107 mmol/L (101-111) 07/21/20 04:05 Carbon Dioxide 23 mmol/L (21-32) 07/21/20 04:05 Anion Gap 8.0 (6-13) 07/21/20 04:05 BUN < 5 mg/dL (6-20) L 07/21/20 04:05 Creatinine 0.3 mg/dL (0.4-1.0) L 07/21/20 04:05 Estimated GFR (MDRD) 228 (>89) 07/21/20 04:05 Glucose 109 mg/dL (70-100) H 07/21/20 04:05 Lactic Acid 1.7 mmol/L (0.5-2.2) 07/19/20 13:15 Calcium 7.9 mg/dL (8.5-10.3) L 07/21/20 04:05 Phosphorus 1.9 mg/dL (2.5-4.6) L 07/21/20 04:05 Magnesium 2.0 mg/dL (1.7-2.8) 07/21/20 04:05 Total Bilirubin 1.4 mg/dL (0.2-1.0) H 07/21/20 04:05 AST 197 IU/L (10-42) H 07/21/20 04:05 ALT 88 IU/L (10-60) H 07/21/20 04:05 Alkaline Phosphatase 270 IU/L (42-121) H 07/21/20 04:05 Ammonia 52.0 umol/L (7-35) H 07/21/20 04:05 B-Natriuretic Peptide 18 pg/mL (5-100) 07/18/20 21:15 Total Protein 6.1 g/dL (6.7-8.2) L 07/21/20 04:05 Albumin 2.8 g/dL (3.2-5.5) L 07/21/20 04:05 Globulin 3.3 g/dL (2.1-4.2) 07/21/20 04:05 Albumin/Globulin Ratio 0.8 (1.0-2.2) L 07/21/20 04:05 Lipase 142 U/L (22-51) H 07/21/20 04:05 Urine Color YELLOW 07/18/20 21:40 Urine Clarity CLEAR (CLEAR) 07/18/20 21:40 Urine pH 6.5 PH (5.0-7.5) 07/18/20 21:40 Ur Specific [place] 1.020 (1.002-1.030) 07/18/20 21:40 Urine Protein NEGATIVE mg/dL (NEGATIVE) 07/18/20 21:40 Urine Glucose (UA) NEGATIVE mg/dL (NEGATIVE) 07/18/20 21:40 Urine Ketones NEGATIVE mg/dL (NEGATIVE) 07/18/20 21:40 Urine Occult Blood NEGATIVE (NEGATIVE) 07/18/20 21:40 Urine Nitrite NEGATIVE (NEGATIVE) 07/18/20 21:40 Urine Bilirubin NEGATIVE (NEGATIVE) 07/18/20 21:40 Urine Urobilinogen 0.2 (NORMAL) E.U./dL (NORMAL) 07/18/20 21:40 Ur Leukocyte Esterase NEGATIVE (NEGATIVE) 07/18/20 21:40 Ur Microscopic Review NOT INDICATED 07/18/20 21:40 Urine Culture Comments NOT INDICATED 07/18/20 21:40 Nasal Screen MRSA (PCR) POSITIVE (NEGATIVE) A* 07/19/20 23:10 Urine Opiates Screen NEGATIVE (NEGATIVE) 07/18/20 21:40 Ur Oxycodone Screen NEGATIVE (NEGATIVE) 07/18/20 21:40 Urine Methadone Screen NEGATIVE (NEGATIVE) 07/18/20 21:40 Ur Propoxyphene Screen NEGATIVE (NEGATIVE) 07/18/20 21:40 Ur Barbiturates Screen NEGATIVE (NEGATIVE) 07/18/20 21:40 Ur Tricyclics Screen NEGATIVE (NEGATIVE) 07/18/20 21:40 Ur Phencyclidine Scrn NEGATIVE (NEGATIVE) 07/18/20 21:40 Ur Amphetamine Screen NEGATIVE (NEGATIVE) 07/18/20 21:40 U Methamphetamines Scrn NEGATIVE (NEGATIVE) 07/18/20 21:40 U Benzodiazepines Scrn NEGATIVE (NEGATIVE) 07/18/20 21:40 Urine Cocaine Screen NEGATIVE (NEGATIVE) 07/18/20 21:40 U Cannabinoids Screen NEGATIVE (NEGATIVE) 07/18/20 21:40 Ethyl Alcohol 412.2 mg/dL 07/18/20 21:15 Serum Ketones NEGATIVE (NEGATIVE) 07/18/20 21:15 SARS-CoV-2 (PCR) NOT DETECTED 07/18/20 22:21 - Procedures Procedures: Procedures (02/11/19) DRAINAGE OF PERITONEAL CAVITY, PERCUTANEOUS APPROACH, DIAGN (12/06/18) Sepsis Event Note (H) - Sepsis Criteria Sepsis Criteria: Recorded Heart Rate greater than 90 bpm, Recorded Respiratory Rate greater than 20, Metabolic: lactate > 2 mmol/L ABX Reporting Has patient been on IV antibiotics over the past 48 hours?: Yes
[2020-07-22] MEDS: LORazepam 100MG/100ML D5W 100 ML IV SCH ×2 (01:14→08:58)
[2020-07-22] MEDS: SODIUM CHLORIDE FLUSH 0.9% 10 ML SYRINGE IVP SCH ×3 (01:17→17:05)
[2020-07-22 05:01] LABS: BASOPHILS % (AUTO) 0.3 %; EOSINOPHILS # (AUTO) 0.1 10^3/uL (0.0-0.7); HGB - HEMOGLOBIN 10.1 g/dL (12.0-16.0); LYMPHOCYTES # (AUTO) 1.2 10^3/uL (1.5-3.5); LYMPHOCYTES % (AUTO) 33.7 %; MEAN CORPUSCULAR HEMOGLOBIN 27.5 pg (27.0-31.0); MEAN CORPUSCULAR HGB CONC 31.1 g/dL (32.0-36.0); MEAN CORPUSCULAR VOLUME 88.6 fL (81.0-99.0); MEAN PLATELET VOLUME 9.1 fL (7.9-10.8); MONOCYTES # (AUTO) 0.3 10^3/uL (0.0-1.0); MONOCYTES % (AUTO) 8.6 %; NEUTROPHILS % (AUTO) 54.1 %; PLT - PLATELET COUNT 63 10^3/uL (130-450); RED BLOOD COUNT 3.67 10^6/uL (4.20-5.40); RED CELL DISTRIBUTION WIDTH 22.5 % (12.0-15.0); WHITE BLOOD COUNT 3.6 x10^3/uL (4.8-10.8)
[2020-07-22 05:06] LABS: VBG PH 7.465 (7.31-7.41)
[2020-07-22 05:16] LABS: PLATELET ESTIMATE, MANUAL DECREASED (<130,000) (NORMAL); PLATELET MORPHOLOGY NORMAL APPEARANCE (NORMAL); RBC MORPHOLOGY (MULTIPLE) 2+ ANISOCYTOSIS (NORMAL)
[2020-07-22 05:24] LABS: ALBUMIN 2.8 g/dL (3.2-5.5); ALBUMIN/GLOBULIN RATIO 0.8 (1.0-2.2); ALKALINE PHOSPHATASE 282 IU/L (42-121); ALT ALANINE AMINOTRANSFERASE 83 IU/L (10-60); AST ASPARTATE AMINOTRANSFERASE 144 IU/L (10-42); BILIRUBIN,TOTAL 1.3 mg/dL (0.2-1.0); BUN - BLOOD UREA NITROGEN < 5 mg/dL (6-20); CALCIUM 8.2 mg/dL (8.5-10.3); CARBON DIOXIDE - CO2 22 mmol/L (21-32); CHLORIDE 113 mmol/L (101-111); CREATININE 0.3 mg/dL (0.4-1.0); GLUCOSE 104 mg/dL (70-100); LIPASE 82 U/L (22-51); MAGNESIUM 1.9 mg/dL (1.7-2.8); PHOSPHORUS 3.6 mg/dL (2.5-4.6); SODIUM 143 mmol/L (135-145); TOTAL PROTEIN 6.2 g/dL (6.7-8.2)
[2020-07-22] MEDS ORDERED: POTASSIUM CHLORIDE 20 MEQ TABLET PO ONE (05:59)
[2020-07-22] MEDS: PANTOPRAZOLE 40 MG TABLET PO SCH (06:25)
[2020-07-22] MEDS: POTASSIUM CHLOR 10 MEQ/100 ML 10 MEQ/100 ML BAG IV SCH ×4 (08:15→14:38)
[2020-07-22] MEDS: NICOTINE 21 MG PATCH TOP SCH (08:29)
[2020-07-22] MEDS ORDERED: LACTULOSE 10 GM /15 ML UDC PO SCH (09:00)
[2020-07-22] MEDS ORDERED: chlordiazePOXIDE 25 MG CAPSULE PO SCH (09:00)
[2020-07-22] MEDS: MULTIVITAMIN 10 ML, FOLIC ACID INJ 1 MG, THIAMINE INJ 100 MG, MAGNESIUM SULFATE 2 GM in... IV SCH ×5 (09:12)
[2020-07-22] MEDS: LACTULOSE 10 GM /15 ML UDC PO SCH ×2 (09:21→21:00)
[2020-07-22] MEDS: ethyl alcohoL 62% SWAB AMPULE NAS SCH ×2 (09:22→21:00)
--- NOTE | 2020-07-22 11:45 | PROVIDER PROGRESS NOTE ---
Subjective - Prog Note Date Prog Note Date: 07/22/20 Prog Note Time: 12:33 - Subjective Subjective: She stares at me when I asked her questions. She does follow me with her eyes. Severe psychomotor slowing. She eventually will answer my questions but it takes her almost minutes to come up with a response. Current Medications - Current Medications Current Medications: Active Medications Acetaminophen (Tylenol) 650 mg PO Q4HR PRN PRN Reason: Pain or Fever > 38C (100.4F) Alcohol (Nozin) 1 amp ALLI BID MEDARDO Last Admin: 07/22/20 09:22 Dose: 1 amp Documented by: Chlordiazepoxide HCl (Librium) 25 mg PO BID [facility] Last Admin: 07/22/20 08:30 Dose: 25 mg Documented by: Sodium Chloride (Normal Saline 0.9%) 1,000 mls @ 100 mls/hr IV .Q10H MEDARDO Last Infusion: 07/22/20 06:36 Dose: 25 mls/hr Documented by: Lorazepam (Ativan) 100 mls @ 5 mls/hr IV .Q20H MEDARDO; Protocol Last Titration: 07/22/20 11:51 Dose: 7 mg/hr, 7 mls/hr Documented by: Multivitamins 10 ml/ Folic Acid 1 mg/ Thiamine HCl 100 mg / Magnesium Sulfate 2 gm/Sodium Chloride 1,015.2 mls @ 100 mls/hr IV DAILY [facility] Last Admin: 07/22/20 09:12 Dose: 100 mls/hr Documented by: Lactulose (Enulose) 30 gm PO BID MEDARDO Last Admin: 07/22/20 09:21 Dose: 30 gm Documented by: Lidocaine (Lidoderm Patch) 1 patch TOP DAILY PRN PRN Reason: PAIN Last Admin: 07/20/20 20:51 Dose: 1 patch Documented by: Multi-Ingredient Ointment (Zinc Oxide) 1 applic TOP PRN PRN PRN Reason: Skin Care Last Admin: 07/21/20 05:00 Dose: 1 applic Documented by: Nicotine (Nicoderm) 1 patch TOP DAILY MEDARDO Last Admin: 07/22/20 08:29 Dose: 1 patch Documented by: Ondansetron HCl (Zofran Inj) 4 mg IVP Q6HR PRN PRN Reason: Nausea / Vomiting Pantoprazole Sodium (Protonix) 40 mg PO QDAC MEDARDO Last Admin: 07/22/20 06:25 Dose: 40 mg Documented by: Phenol/Menthol (Chloraseptic) 2 sprays MM Q2HR PRN PRN Reason: Throat Pain Sodium Chloride (Normal Saline Flush 0.9%) 10 ml IVP PRN PRN PRN Reason: NEEDED PER PROVIDER ORDERS Last Admin: 07/19/20 21:58 Dose: 10 ml Documented by: Sodium Chloride (Normal Saline Flush 0.9%) 10 ml IVP 0100,0900,1700 [facility] Last Admin: 07/22/20 09:23 Dose: 10 ml Documented by: Gabapentin [Neurontin] 400 mg PO QID 07/19/20 Lactulose [Generlac] 30 gm PO DAILY 07/19/20 Lactulose [Generlac] 40 gm PO QPM 07/19/20 Lidocaine Patch 5% [Lidoderm Patch] 1 each TOP DAILY 07/19/20 Lipase/Protease/Amylase [Creon Dr 12,000 Units Capsule] 1 each PO TIDWM 07/19/20 Spironolactone [Aldactone] 50 mg PO DAILY 07/19/20 busPIRone [Buspar] 5 mg PO TID 07/19/20 guaiFENesin [Mucinex] 400 mg PO Q6H PRN 07/19/20 hydrOXYzine PAMOATE [Vistaril] 25 - 50 mg PO Q6H PRN 07/19/20 rifAXIMin [Xifaxan] 550 mg PO BID 07/19/20 traZODone [Desyrel] 50 mg PO HS PRN 07/19/20 Objective - Vital Signs/Intake & Output Reviewed Vital Signs: Yes Vital Signs: Vital Signs x48h Temp Pulse Resp BP Pulse Ox 07/22/20 10:00 96 18 119/62 100 07/22/20 09:00 91 22 100/78 100 07/22/20 08:00 89 17 110/55 L 98 07/22/20 07:00 93 16 114/61 07/22/20 06:00 91 22 100/63 100 07/22/20 05:00 36.2 C L 89 23 96/59 L 97 07/22/20 04:00 89 23 93/57 L 97 Intake & Output: Intake & Output 07/19/20 07/20/20 07/21/20 07/22/20 23:59 23:59 23:59 23:59 Intake Total 5550.200 5087.083 4051.600 1403.651 Output Total 1750 2400 2100 300 Balance 3800.200 2687.083 1039.493 6465.651 - Objective General Appearance: positive: No acute distress, Other (Very slow psychomotor responses) Eyes Bilateral: positive: PERRL ENT: positive: Pharynx nml Neck: positive: No JVD. negative: Stiff neck Respiratory: positive: No respiratory distress. negative: Wheezes, Rales, Rh onchi Cardiovascular: positive: Regular rate & rhythm. negative: Tachycardia, Gallop/S4, Friction rub Abdomen: positive: Non-tender, No organomegaly, Nml bowel sounds, No distention Skin: positive: Warm, Dry. negative: Diaphoresis Extremities: positive: Non-tender, No pedal edema Neurologic/Psychiatric: positive: CN's nml (2-12), Disoriented to place, Disoriented to time, Slurred/abnml speech. negative: Motor nml (Very slight tremors. But from reports of previous hospitalist notes, and nurses, she is improved tremendously.) - Lab Results Fish Bones: 07/22/20 04:45 07/22/20 04:45 Other Labs: Lab Results x24hrs 07/22/20 07/22/20 07/22/20 Range/Units 04:45 04:45 04:45 WBC (4.8-10.8) x10^3/uL RBC (4.20-5.40) 10^6/uL Hgb (12.0-16.0) g/dL Hct (37.0-47.0) % MCV (81.0-99.0) fL MCH (27.0-31.0) pg MCHC (32.0-36.0) g/dL RDW (12.0-15.0) % Plt Count (130-450) 10^3/uL MPV (7.9-10.8) fL Neut # (Auto) (1.5-6.6) 10^3/uL Lymph # (Auto) (1.5-3.5) 10^3/uL [place] # (Auto) (0.0-1.0) 10^3/uL Eos # (Auto) (0.0-0.7) 10^3/uL Baso # (Auto) (0.0-0.1) 10^3/uL Absolute Nucleated RBC x10^3/uL Nucleated RBC % /100WBC Manual Slide Review WBC Morphology (NORMAL) Platelet Estimate (NORMAL) Platelet Morphology (NORMAL) RBC Morph Micro Appear (NORMAL) VBG pH 7.465 H (7.31-7.41) Ionized Calcium 1.10 L (1.15-1.33) mmol/L Sodium 143 (135-145) mmol/L Potassium 3.4 L (3.5-5.0) mmol/L Chloride 113 H (101-111) mmol/L Carbon Dioxide 22 (21-32) mmol/L Anion Gap 8.0 (6-13) BUN < 5 L (6-20) mg/dL Creatinine 0.3 L (0.4-1.0) mg/dL Estimated GFR (MDRD) 228 (>89) Glucose 104 H (70-100) mg/dL Calcium 8.2 L (8.5-10.3) mg/dL Phosphorus 3.6 (2.5-4.6) mg/dL Magnesium 1.9 (1.7-2.8) mg/dL Total Bilirubin 1.3 H (0.2-1.0) mg/dL AST 144 H (10-42) IU/L ALT 83 H (10-60) IU/L Alkaline Phosphatase 282 H (42-121) IU/L Ammonia 74.2 H (7-35) umol/L Total Protein 6.2 L (6.7-8.2) g/dL Albumin 2.8 L (3.2-5.5) g/dL Globulin 3.4 (2.1-4.2) g/dL Albumin/Globulin Ratio 0.8 L (1.0-2.2) Lipase 82 H (22-51) U/L 07/22/20 Range/Units 04:45 WBC 3.6 L (4.8-10.8) x10^3/uL RBC 3.67 L (4.20-5.40) 10^6/uL Hgb 10.1 L (12.0-16.0) g/dL Hct 32.5 L (37.0-47.0) % MCV 88.6 (81.0-99.0) fL MCH 27.5 (27.0-31.0) pg MCHC 31.1 L (32.0-36.0) g/dL RDW 22.5 H (12.0-15.0) % Plt Count 63 L (130-450) 10^3/uL MPV 9.1 (7.9-10.8) fL Neut # (Auto) 2.0 (1.5-6.6) 10^3/uL Lymph # (Auto) 1.2 L (1.5-3.5) 10^3/uL [place] # (Auto) 0.3 (0.0-1.0) 10^3/uL Eos # (Auto) 0.1 (0.0-0.7) 10^3/uL Baso # (Auto) 0.0 (0.0-0.1) 10^3/uL Absolute Nucleated RBC 0.00 x10^3/uL Nucleated RBC % 0.0 /100WBC Manual Slide Review Indicated WBC Morphology NORMAL APPEARANCE (NORMAL) Platelet Estimate DECREASED (<130,000) (NORMAL) Platelet Morphology NORMAL APPEARANCE (NORMAL) RBC Morph Micro Appear 2+ ANISOCYTOSIS (NORMAL) VBG pH (7.31-7.41) Ionized Calcium (1.15-1.33) mmol/L Sodium (135-145) mmol/L Potassium (3.5-5.0) mmol/L Chloride (101-111) mmol/L Carbon Dioxide (21-32) mmol/L Anion Gap (6-13) BUN (6-20) mg/dL Creatinine (0.4-1.0) mg/dL Estimated GFR (MDRD) (>89) Glucose (70-100) mg/dL Calcium (8.5-10.3) mg/dL Phosphorus (2.5-4.6) mg/dL Magnesium (1.7-2.8) mg/dL Total Bilirubin (0.2-1.0) mg/dL AST (10-42) IU/L ALT (10-60) IU/L Alkaline Phosphatase (42-121) IU/L Ammonia (7-35) umol/L Total Protein (6.7-8.2) g/dL Albumin (3.2-5.5) g/dL Globulin (2.1-4.2) g/dL Albumin/Globulin Ratio (1.0-2.2) Lipase (22-51) U/L ABX Reporting Has patient been on IV antibiotics over the past 48 hours?: No Sepsis Event Note (H) - Sepsis Criteria Sepsis Criteria: Recorded Heart Rate greater than 90 bpm, Recorded Respiratory Rate greater than 20, Metabolic: lactate > 2 mmol/L Assessment/Plan - Problem List (1) SIRS (systemic inflammatory response syndrome) Impression: Patient made SIRS criteria upon admission by virtue of lactic acidosis, tachypnea, tachycardia and a temperature of 38 C. As a result she was on vancomycin and cefepime. Preliminary on 1 of 2 bottles of the patient's blood cultures drawn 07/19 and resulted 07/22 grew gram-positive cocci which were later confirmed to be coagulase-negative staph aureus. It is likely that this is a contaminant. As a result antibiotics were discontinued on July 21, 2020.She has been without a high temperature during this admission. Temperature this morning is 36.2. White cell count is low for her. When she came in at 9.4 she has steadily decreased to 3.6 today. We will continue to monitor. (2) Alcohol withdrawal Assessment/Plan: Patient was initially admitted to the [facility] floor on CIWA protocol, Librium 25 mg p.o. every 6 hours. However she consistently was scoring 17-19 on the CIWA scoring. As a result she was transferred to the ICU and placed on Ativan drip . She has been on Ativan drip since July 20. Gradually increasing up to 14 mils per hour. Today she seems to have psychomotor slowing, no agitation, minimal tremor. Is eating breakfast. Question of whether hepatic encephalopathy is a problem and she is on lactulose. Plan: Start to taper off her Ativan drip, rely on Librium p.o. The half-life of Ativan is enough that she may be covered for the next 24 to 48 hours. transfer to [facility] from ICU (3) Sinus tachycardia Assessment/Plan: This was likely related to patient's alcohol withdrawal. It is resolved. (4) Lactic acidosis Assessment/Plan: Resolved (5) Alcoholism /alcohol abuse/cirrhosis Assessment/Plan: Currently on CIWA protocol. CT abdomen pelvis done on July 19, 2020 showed a patent appearing TIPS. There was also diffuse hepatic steatosis. Lipase has not been higher than 197. Patient has mild elevated liver enzymes. Receiving a banana bag IV. I will switch to po. On Librium 25 mg p.o. every 6 hours. continue lactulose for ? hepatic encephalopathy (6) Pancreatitis, chronic Qualifiers: Pancreatitis type: alcohol induced Qualified Code(s): K86.0 - Alcohol- induced chronic pancreatitis (7) Somnolence/hepatic encephalopathy Assessment/Plan: Suspect Ativan drip and librium are strongly contributing to this. Wean off Ativan considering patient is no longer significantly tremulous. We will also decrease Librium frequency from q6hrs to bid. Lactulose 10 mg p.o. twice daily has also been ordered. Patient's ammonia level was 52. Ammonia went up from 52->>74 this am. Plan: continue current lactulose and follow exam.
[2020-07-22] MEDS: chlordiazePOXIDE 5 MG CAPSULE PO SCH ×2 (17:41→23:23)
[2020-07-23] MEDS: SODIUM CHLORIDE 0.9% 1,000 ML IV SCH (00:53)
[2020-07-23] MEDS: SODIUM CHLORIDE FLUSH 0.9% 10 ML SYRINGE IVP SCH ×3 (00:59→16:02)
[2020-07-23 04:52] LABS: VBG PH 7.519 (7.31-7.41)
[2020-07-23 04:56] LABS: BASOPHILS % (AUTO) 0.4 %; EOSINOPHILS # (AUTO) 0.1 10^3/uL (0.0-0.7); EOSINOPHILS % (AUTO) 1.7 %; HGB - HEMOGLOBIN 10.4 g/dL (12.0-16.0); LYMPHOCYTES # (AUTO) 1.2 10^3/uL (1.5-3.5); MEAN CORPUSCULAR HEMOGLOBIN 28.4 pg (27.0-31.0); MEAN CORPUSCULAR HGB CONC 32.3 g/dL (32.0-36.0); MEAN PLATELET VOLUME 9.2 fL (7.9-10.8); MONOCYTES # (AUTO) 0.6 10^3/uL (0.0-1.0); NEUTROPHILS # (AUTO) 2.9 10^3/uL (1.5-6.6); NEUTROPHILS % (AUTO) 60.5 %; PLT - PLATELET COUNT 87 10^3/uL (130-450); RED BLOOD COUNT 3.66 10^6/uL (4.20-5.40); RED CELL DISTRIBUTION WIDTH 23.7 % (12.0-15.0); WHITE BLOOD COUNT 4.8 x10^3/uL (4.8-10.8)
[2020-07-23 05:17] LABS: ALBUMIN/GLOBULIN RATIO 0.9 (1.0-2.2); ALKALINE PHOSPHATASE 317 IU/L (42-121); ALT ALANINE AMINOTRANSFERASE 84 IU/L (10-60); AST ASPARTATE AMINOTRANSFERASE 134 IU/L (10-42); BILIRUBIN,TOTAL 1.3 mg/dL (0.2-1.0); BUN - BLOOD UREA NITROGEN < 5 mg/dL (6-20); CALCIUM 8.7 mg/dL (8.5-10.3); CARBON DIOXIDE - CO2 22 mmol/L (21-32); CHLORIDE 110 mmol/L (101-111); CREATININE 0.3 mg/dL (0.4-1.0); GLUCOSE 97 mg/dL (70-100); MAGNESIUM 1.7 mg/dL (1.7-2.8); PHOSPHORUS 2.8 mg/dL (2.5-4.6); SODIUM 142 mmol/L (135-145); TOTAL PROTEIN 6.5 g/dL (6.7-8.2)
[2020-07-23 05:39] LABS: PLATELET ESTIMATE, MANUAL DECREASED (<130,000) (NORMAL)
[2020-07-23] MEDS: PANTOPRAZOLE 40 MG TABLET PO SCH (06:22)
[2020-07-23] MEDS: chlordiazePOXIDE 5 MG CAPSULE PO SCH ×3 (06:22→21:29)
[2020-07-23] MEDS: ZINC OXIDE 20% OINT 30 GM TUBE TOP PRN ×2 (06:47→23:02)
[2020-07-23] MEDS: FOLIC ACID 1 MG TABLET PO SCH (08:49)
[2020-07-23] MEDS: THIAMINE 100 MG TABLET PO SCH (08:49)
[2020-07-23] MEDS: LACTULOSE 10 GM /15 ML UDC PO SCH ×2 (08:50→21:20)
[2020-07-23] MEDS: ethyl alcohoL 62% SWAB AMPULE NAS SCH ×2 (08:50→21:20)
[2020-07-23] MEDS: NICOTINE 21 MG PATCH TOP SCH (08:50)
--- NOTE | 2020-07-23 10:35 | PROVIDER PROGRESS NOTE ---
Subjective - Prog Note Date Prog Note Date: 07/23/20 Prog Note Time: 10:35 - Subjective Subjective: She has been off IV benzodiazepines for a day now. On oral benzodiazepines. No rebound tremors or tachycardia. Eating about 25% of her food. Taking decent fluids by mouth. Still with psychomotor slowing. Current Medications - Current Medications Current Medications: Active Medications Acetaminophen (Tylenol) 650 mg PO Q4HR PRN PRN Reason: Pain or Fever > 38C (100.4F) Alcohol (Nozin) 1 amp ALLI BID REPLACED BY [facility] Last Admin: 07/23/20 08:50 Dose: 1 amp Documented by: Chlordiazepoxide HCl (Librium) 15 mg PO Q6HR REPLACED BY [facility] Last Admin: 07/23/20 06:22 Dose: 15 mg Documented by: Folic Acid () 1 mg PO DAILY REPLACED BY [facility] Last Admin: 07/23/20 08:49 Dose: 1 mg Documented by: Lactulose (Enulose) 30 gm PO BID REPLACED BY [facility] Last Admin: 07/23/20 08:50 Dose: 30 gm Documented by: Lidocaine (Lidoderm Patch) 1 patch TOP DAILY PRN PRN Reason: PAIN Last Admin: 07/20/20 20:51 Dose: 1 patch Documented by: Multi-Ingredient Ointment (Zinc Oxide) 1 applic TOP PRN PRN PRN Reason: Skin Care Last Admin: 07/23/20 06:47 Dose: 1 applic Documented by: Nicotine (Nicoderm) 1 patch TOP DAILY REPLACED BY [facility] Last Admin: 07/23/20 08:50 Dose: 1 patch Documented by: Ondansetron HCl (Zofran Inj) 4 mg IVP Q6HR PRN PRN Reason: Nausea / Vomiting Pantoprazole Sodium (Protonix) 40 mg PO QDAC REPLACED BY [facility] Last Admin: 07/23/20 06:22 Dose: 40 mg Documented by: Phenol/Menthol (Chloraseptic) 2 sprays MM Q2HR PRN PRN Reason: Throat Pain Sodium Chloride (Normal Saline Flush 0.9%) 10 ml IVP PRN PRN PRN Reason: NEEDED PER PROVIDER ORDERS Last Admin: 07/19/20 21:58 Dose: 10 ml Documented by: Sodium Chloride (Normal Saline Flush 0.9%) 10 ml IVP 0100,0900,1700 REPLACED BY [facility] Last Admin: 07/23/20 08:50 Dose: 10 ml Documented by: Thiamine HCl (Vitamin B-1) 100 mg PO DAILY [facility] Last Admin: 07/23/20 08:49 Dose: 100 mg Documented by: Gabapentin [Neurontin] 400 mg PO QID 07/19/20 Lactulose [Generlac] 30 gm PO DAILY 07/19/20 Lactulose [Generlac] 40 gm PO QPM 07/19/20 Lidocaine Patch 5% [Lidoderm Patch] 1 each TOP DAILY 07/19/20 Lipase/Protease/Amylase [Bulmaro Rosario 12,000 Units Capsule] 1 each PO TIDWM 07/19/20 Spironolactone [Aldactone] 50 mg PO DAILY 07/19/20 busPIRone [Buspar] 5 mg PO TID 07/19/20 guaiFENesin [Mucinex] 400 mg PO Q6H PRN 07/19/20 hydrOXYzine PAMOATE [Vistaril] 25 - 50 mg PO Q6H PRN 07/19/20 rifAXIMin [Xifaxan] 550 mg PO BID 07/19/20 traZODone [Desyrel] 50 mg PO HS PRN 07/19/20 Objective - Vital Signs/Intake & Output Reviewed Vital Signs: Yes Vital Signs: Vital Signs x48h Temp Pulse Resp BP Pulse Ox 07/23/20 08:09 36.4 C L 93 22 127/69 99 07/23/20 07:00 87 20 101/78 98 07/23/20 06:00 87 22 121/83 H 97 07/23/20 05:00 93 20 110/50 L 98 07/23/20 04:40 36.5 C 93 18 110/64 98 07/23/20 03:00 92 18 110/82 H Intake & Output: Intake & Output 07/20/20 07/21/20 07/22/20 07/23/20 23:59 23:59 23:59 23:59 Intake Total 5087.083 4051.600 3631.934 1718.916 Output Total 2400 2100 1000 450 Balance 2687.083 9532.614 3472.934 1268.916 - Objective General Appearance: positive: Alert, Other (Still slow. Better than yesterday. Able to sit up, But very weak.) Eyes Bilateral: positive: PERRL ENT: positive: Pharynx nml Neck: positive: No JVD Respiratory: positive: No respiratory distress. negative: Wheezes, Rales, Rhonchi Cardiovascular: positive: Regular rate & rhythm. negative: Gallop/S4, Friction rub Abdomen: positive: Non-tender, No organomegaly, Nml bowel sounds, No distention Skin: positive: Warm, Dry. negative: Diaphoresis Extremities: positive: Non-tender, No pedal edema Neurologic/Psychiatric: positive: CN's nml (2-12), Motor nml, Disoriented to place, Disoriented to time, Slurred/abnml speech - Lab Results Fish Bones: 07/23/20 04:10 07/23/20 04:10 Other Labs: Lab Results x24hrs 07/23/20 07/23/20 07/23/20 Range/Units 04:10 04:10 04:10 WBC (4.8-10.8) x10^3/uL RBC (4.20-5.40) 10^6/uL Hgb (12.0-16.0) g/dL Hct (37.0-47.0) % MCV (81.0-99.0) fL MCH (27.0-31.0) pg MCHC (32.0-36.0) g/dL RDW (12.0-15.0) % Plt Count (130-450) 10^3/uL MPV (7.9-10.8) fL Neut # (Auto) (1.5-6.6) 10^3/uL Lymph # (Auto) (1.5-3.5) 10^3/uL Davie # (Auto) (0.0-1.0) 10^3/uL Eos # (Auto) (0.0-0.7) 10^3/uL Baso # (Auto) (0.0-0.1) 10^3/uL Absolute Nucleated RBC x10^3/uL Nucleated RBC % /100WBC Manual Slide Review Platelet Estimate (NORMAL) RBC Morph Micro Appear (NORMAL) VBG pH 7.519 H (7.31-7.41) Ionized Calcium 1.07 L (1.15-1.33) mmol/L Sodium 142 (135-145) mmol/L Potassium 3.9 (3.5-5.0) mmol/L Chloride 110 (101-111) mmol/L Carbon Dioxide 22 (21-32) mmol/L Anion Gap 10.0 (6-13) BUN < 5 L (6-20) mg/dL Creatinine 0.3 L (0.4-1.0) mg/dL Estimated GFR (MDRD) 228 (>89) Glucose 97 (70-100) mg/dL Calcium 8.7 (8.5-10.3) mg/dL Phosphorus 2.8 (2.5-4.6) mg/dL Magnesium 1.7 (1.7-2.8) mg/dL Total Bilirubin 1.3 H (0.2-1.0) mg/dL AST 134 H (10-42) IU/L ALT 84 H (10-60) IU/L Alkaline Phosphatase 317 H (42-121) IU/L Ammonia 77.8 H (7-35) umol/L Total Protein 6.5 L (6.7-8.2) g/dL Albumin 3.0 L (3.2-5.5) g/dL Globulin 3.5 (2.1-4.2) g/dL Albumin/Globulin Ratio 0.9 L (1.0-2.2) 07/23/20 Range/Units 04:10 WBC 4.8 (4.8-10.8) x10^3/uL RBC 3.66 L (4.20-5.40) 10^6/uL Hgb 10.4 L (12.0-16.0) g/dL Hct 32.2 L (37.0-47.0) % MCV 88.0 (81.0-99.0) fL MCH 28.4 (27.0-31.0) pg MCHC 32.3 (32.0-36.0) g/dL RDW 23.7 H (12.0-15.0) % Plt Count 87 L (130-450) 10^3/uL MPV 9.2 (7.9-10.8) fL Neut # (Auto) 2.9 (1.5-6.6) 10^3/uL Lymph # (Auto) 1.2 L (1.5-3.5) 10^3/uL Davie # (Auto) 0.6 (0.0-1.0) 10^3/uL Eos # (Auto) 0.1 (0.0-0.7) 10^3/uL Baso # (Auto) 0.0 (0.0-0.1) 10^3/uL Absolute Nucleated RBC 0.00 x10^3/uL Nucleated RBC % 0.0 /100WBC Manual Slide Review Indicated Platelet Estimate DECREASED (<130,000) (NORMAL) RBC Morph Micro Appear 1+ OVALOCYTES (NORMAL) VBG pH (7.31-7.41) Ionized Calcium (1.15-1.33) mmol/L Sodium (135-145) mmol/L Potassium (3.5-5.0) mmol/L Chloride (101-111) mmol/L Carbon Dioxide (21-32) mmol/L Anion Gap (6-13) BUN (6-20) mg/dL Creatinine (0.4-1.0) mg/dL Estimated GFR (MDRD) (>89) Glucose (70-100) mg/dL Calcium (8.5-10.3) mg/dL Phosphorus (2.5-4.6) mg/dL Magnesium (1.7-2.8) mg/dL Total Bilirubin (0.2-1.0) mg/dL AST (10-42) IU/L ALT (10-60) IU/L Alkaline Phosphatase (42-121) IU/L Ammonia (7-35) umol/L Total Protein (6.7-8.2) g/dL Albumin (3.2-5.5) g/dL Globulin (2.1-4.2) g/dL Albumin/Globulin Ratio (1.0-2.2) Sepsis Event Note (H) - Sepsis Criteria Sepsis Criteria: Recorded Heart Rate greater than 90 bpm, Recorded Respiratory Rate greater than 20, Metabolic: lactate > 2 mmol/L Assessment/Plan - Problem List (1) Alcohol withdrawal Impression: Patient was initially admitted to the [facility] floor on CIWA protocol, Librium 25 mg p.o. every 6 hours. However she consistently was scoring 17-19 on the CIWA scoring. As a result she was transferred to the ICU and placed on Ativan drip . She has been on Ativan drip since July 20. Gradually increasing up to 14 mils per hour. 07/22 she had psychomotor slowing, no agitation, minimal tremor. was eating breakfast. Question of whether hepatic encephalopathy is a problem and she is on lactulose. She was tapered off the Ativan drip and kept on Librium 15 mg p.o. 4 times daily. Overnight she has stayed stable without tachycardia, diaphoresis or tremulousness. Eating about 25% of her breakfast. But taking good oral intake fluid mckeon. Plan: Reduce Librium dose to 10 mg 3 times daily. Continue lactulose.Transfer from ICU status to [facility] status. (2) Alcoholism /alcohol abuse/cirrhosis Assessment/Plan: Currently on CIWA protocol. CT abdomen pelvis done on July 19, 2020 showed a patent appearing TIPS. There was also diffuse hepatic steatosis. Lipase has not been higher than 197. Patient has mild elevated liver enzymes. She received a banana bag, switched to p.o. thiamine and folate on July 22. Reduce Librium to 10 mg 3 times daily. Continue lactulose. Social work is meeting with the patient to give her her options with regards to treatment of her alcohol abuse. (3) Somnolence/hepatic encephalopathy Assessment/Plan: Suspect Ativan drip and librium are strongly contributing to this. She has been weaned off Ativan drip. Librium was reduced from 25 mg to 15 mg. Lactulose 10 mg p.o. twice daily has also been ordered. Patient's ammonia level was 52. Ammonia went up from 52->>74 this am. Plan: continue current lactulose Decrease Librium further to 10 mg 3 times daily.
[2020-07-24] MEDS: SODIUM CHLORIDE FLUSH 0.9% 10 ML SYRINGE IVP SCH ×3 (00:58→16:00)
[2020-07-24] MEDS: ACETAMINOPHEN 325 MG TABLET PO PRN ×2 (00:58→22:43)
[2020-07-24] MEDS: SODIUM CHLORIDE FLUSH 0.9% 10 ML SYRINGE IVP PRN (00:59)
[2020-07-24] MEDS: ZINC OXIDE 20% OINT 30 GM TUBE TOP PRN (04:11)
[2020-07-24 05:59] LABS: BASOPHILS % (AUTO) 0.6 %; EOSINOPHILS # (AUTO) 0.1 10^3/uL (0.0-0.7); EOSINOPHILS % (AUTO) 1.7 %; HGB - HEMOGLOBIN 10.6 g/dL (12.0-16.0); LYMPHOCYTES # (AUTO) 1.4 10^3/uL (1.5-3.5); LYMPHOCYTES % (AUTO) 30.6 %; MEAN CORPUSCULAR HGB CONC 32.9 g/dL (32.0-36.0); MEAN CORPUSCULAR VOLUME 88.2 fL (81.0-99.0); MEAN PLATELET VOLUME 10.5 fL (7.9-10.8); MONOCYTES # (AUTO) 0.6 10^3/uL (0.0-1.0); NEUTROPHILS # (AUTO) 2.5 10^3/uL (1.5-6.6); NEUTROPHILS % (AUTO) 53.7 %; PLT - PLATELET COUNT 116 10^3/uL (130-450); RED BLOOD COUNT 3.65 10^6/uL (4.20-5.40); RED CELL DISTRIBUTION WIDTH 24.9 % (12.0-15.0); WHITE BLOOD COUNT 4.7 x10^3/uL (4.8-10.8)
[2020-07-24] MEDS: chlordiazePOXIDE 5 MG CAPSULE PO SCH (06:12)
[2020-07-24 06:13] LABS: ALBUMIN 2.9 g/dL (3.2-5.5); ALBUMIN/GLOBULIN RATIO 0.9 (1.0-2.2); BILIRUBIN,TOTAL 0.8 mg/dL (0.2-1.0); CALCIUM 8.6 mg/dL (8.5-10.3); CREATININE 0.5 mg/dL (0.4-1.0); TOTAL PROTEIN 6.2 g/dL (6.7-8.2)
[2020-07-24] MEDS: PANTOPRAZOLE 40 MG TABLET PO SCH (06:13)
[2020-07-24 06:39] LABS: PLATELET ESTIMATE, MANUAL DECREASED (<130,000) (NORMAL)
[2020-07-24] MEDS: FOLIC ACID 1 MG TABLET PO SCH (09:19)
[2020-07-24] MEDS: NICOTINE 21 MG PATCH TOP SCH (09:19)
[2020-07-24] MEDS: LACTULOSE 10 GM /15 ML UDC PO SCH ×2 (09:19→22:36)
[2020-07-24] MEDS: ethyl alcohoL 62% SWAB AMPULE NAS SCH ×2 (09:20→22:36)
[2020-07-24] MEDS: THIAMINE 100 MG TABLET PO SCH (09:20)
--- NOTE | 2020-07-24 12:01 | PROVIDER PROGRESS NOTE ---
Subjective - Prog Note Date Prog Note Date: 07/24/20 Prog Note Time: 12:02 - Subjective Subjective: She does not have much of an appetite. Says food just does not taste good to her. She says that she still really sleepy and really tired and wonders why. She is no longer tremulous, hypertensive. She is identified suicidal ideation or wishing that she was to social work. In trying to eat breakfast she says that her mouth hurts. She says the active opening her mouth to let her jaw drop and then to chew aches. So she prefers soft food or food to drink. She says been going on for weeks. Current Medications - Current Medications Current Medications: Active Medications Acetaminophen (Tylenol) 650 mg PO Q4HR PRN PRN Reason: Pain or Fever > 38C (100.4F) Last Admin: 07/24/20 00:58 Dose: 650 mg Documented by: Alcohol (Nozin) 1 amp ALLI BID [facility] Last Admin: 07/24/20 09:20 Dose: 1 amp Documented by: Folic Acid () 1 mg PO DAILY [facility] Last Admin: 07/24/20 09:19 Dose: 1 mg Documented by: Lactulose (Enulose) 30 gm PO BID [facility] Last Admin: 07/24/20 09:19 Dose: 30 gm Documented by: Lidocaine (Lidoderm Patch) 1 patch TOP DAILY PRN PRN Reason: PAIN Last Admin: 07/20/20 20:51 Dose: 1 patch Documented by: Multi-Ingredient Ointment (Zinc Oxide) 1 applic TOP PRN PRN PRN Reason: Skin Care Last Admin: 07/24/20 04:11 Dose: 1 applic Documented by: Nicotine (Nicoderm) 1 patch TOP DAILY [facility] Last Admin: 07/24/20 09:19 Dose: 1 patch Documented by: Pantoprazole Sodium (Protonix) 40 mg PO QDAC [facility] Last Admin: 07/24/20 06:13 Dose: 40 mg Documented by: Phenol/Menthol (Chloraseptic) 2 sprays MM Q2HR PRN PRN Reason: Throat Pain Sodium Chloride (Normal Saline Flush 0.9%) 10 ml IVP PRN PRN PRN Reason: NEEDED PER PROVIDER ORDERS Last Admin: 07/24/20 00:59 Dose: 10 ml Documented by: Sodium Chloride (Normal Saline Flush 0.9%) 10 ml IVP 0100,0900,1700 [facility] Last Admin: 07/24/20 09:20 Dose: 10 ml Documented by: Thiamine HCl (Vitamin B-1) 100 mg PO DAILY [facility] Last Admin: 07/24/20 09:20 Dose: 100 mg Documented by: Gabapentin [Neurontin] 400 mg PO QID 07/19/20 Lactulose [Generlac] 30 gm PO DAILY 07/19/20 Lactulose [Generlac] 40 gm PO QPM 07/19/20 Lidocaine Patch 5% [Lidoderm Patch] 1 each TOP DAILY 07/19/20 Lipase/Protease/Amylase [Bulmaro Dr 12,000 Units Capsule] 1 each PO TIDWM 07/19/20 Spironolactone [Aldactone] 50 mg PO DAILY 07/19/20 busPIRone [Buspar] 5 mg PO TID 07/19/20 guaiFENesin [Mucinex] 400 mg PO Q6H PRN 07/19/20 hydrOXYzine PAMOATE [Vistaril] 25 - 50 mg PO Q6H PRN 07/19/20 rifAXIMin [Xifaxan] 550 mg PO BID 07/19/20 traZODone [Desyrel] 50 mg PO HS PRN 07/19/20 Objective - Vital Signs/Intake & Output Reviewed Vital Signs: Yes Vital Signs: Vital Signs x48h Temp Pulse Resp BP Pulse Ox 07/24/20 08:45 36.9 C 90 16 114/73 97 07/24/20 06:00 36.8 C 84 16 106/62 97 Intake & Output: Intake & Output 07/21/20 07/22/20 07/23/20 07/24/20 23:59 23:59 23:59 23:59 Intake Total 4051.600 3631.934 2036.916 240 Output Total 2100 1000 450 Balance 5980.743 5119.934 1586.916 240 - Objective General Appearance: positive: No acute distress, Lethargic, Other (5 foot 2 inch white female who weighs 63 kg, still with psychomotor slowing that is gradually improving over the last 3 days. But still there.) Eyes Bilateral: positive: PERRL, EOMI ENT: positive: No signs of dehydration Neck: positive: No JVD. negative: Stiff neck Respiratory: positive: No respiratory distress. negative: Wheezes, Rales, Rhonchi Cardiovascular: positive: Regular rate & rhythm. negative: Gallop/S4, Friction rub Abdomen: positive: Non-tender, No organomegaly, Nml bowel sounds, No distention Skin: positive: Warm, Dry, Pallor Extremities: positive: Full ROM, No pedal edema Neurologic/Psychiatric: positive: CN's nml (2-12), Disoriented to time. negative: Motor nml (Slow movement. Able to accomplish her goals such as reaching for a cup, or putting food in her mouth, but it takes a very long time.) - Lab Results Fish Bones: 07/24/20 05:52 07/24/20 05:52 Other Labs: Lab Results x24hrs 07/24/20 07/24/20 07/24/20 Range/Units 05:52 05:52 05:52 WBC 4.7 L (4.8-10.8) x10^3/uL RBC 3.65 L (4.20-5.40) 10^6/uL Hgb 10.6 L (12.0-16.0) g/dL Hct 32.2 L (37.0-47.0) % MCV 88.2 (81.0-99.0) fL MCH 29.0 (27.0-31.0) pg MCHC 32.9 (32.0-36.0) g/dL RDW 24.9 H (12.0-15.0) % Plt Count 116 L (130-450) 10^3/uL MPV 10.5 (7.9-10.8) fL Neut # (Auto) 2.5 (1.5-6.6) 10^3/uL Lymph # (Auto) 1.4 L (1.5-3.5) 10^3/uL Harvey # (Auto) 0.6 (0.0-1.0) 10^3/uL Eos # (Auto) 0.1 (0.0-0.7) 10^3/uL Baso # (Auto) 0.0 (0.0-0.1) 10^3/uL Absolute Nucleated RBC 0.00 x10^3/uL Nucleated RBC % 0.0 /100WBC Manual Slide Review Indicated Platelet Estimate DECREASED (<130,000) (NORMAL) RBC Morph Micro Appear 1+ POLYCHROMASIA (NORMAL) Sodium 139 (135-145) mmol/L Potassium 3.6 (3.5-5.0) mmol/L Chloride 108 (101-111) mmol/L Carbon Dioxide 24 (21-32) mmol/L Anion Gap 7.0 (6-13) BUN 6 (6-20) mg/dL Creatinine 0.5 (0.4-1.0) mg/dL Estimated GFR (MDRD) 126 (>89) Glucose 97 (70-100) mg/dL Calcium 8.6 (8.5-10.3) mg/dL Total Bilirubin 0.8 (0.2-1.0) mg/dL AST 99 H (10-42) IU/L ALT 73 H (10-60) IU/L Alkaline Phosphatase 295 H (42-121) IU/L Ammonia 54.5 H (7-35) umol/L Total Protein 6.2 L (6.7-8.2) g/dL Albumin 2.9 L (3.2-5.5) g/dL Globulin 3.3 (2.1-4.2) g/dL Albumin/Globulin Ratio 0.9 L (1.0-2.2) Sepsis Event Note (H) - Sepsis Criteria Sepsis Criteria: Recorded Heart Rate greater than 90 bpm, Recorded Respiratory Rate greater than 20, Metabolic: lactate > 2 mmol/L Assessment/Plan - Problem List (1) Alcohol withdrawal Impression: Patient was initially admitted to the [facility] floor on CIWA protocol, Librium 25 mg p.o. every 6 hours. However she consistently was scoring 17-19 on the CIWA scoring. As a result she was transferred to the ICU and placed on Ativan drip . She was on Ativan drip starting July 20. Gradually increasing up to 14 mils per hour. 07/22 she had psychomotor slowing, no agitation, minimal tremor. was eating breakfast. Question of whether hepatic encephalopathy is a problem and she is on lactulose. She was tapered off the Ativan drip 07/22 and kept on Librium 15 mg p.o. 4 times daily. She has stayed stable without tachycardia, diaphoresis or tremulousness. Eating about 25% of her breakfast. But taking good oral intake fluid mckeon. Librium was reduced again 11/11 and transferred from ICU to Med Surg, and today I will stop it. (2) Alcoholism /alcohol abuse/cirrhosis Assessment/Plan: Currently on CIWA protocol. CT abdomen pelvis done on July 19, 2020 showed a patent appearing TIPS. There was also diffuse hepatic steatosis. Lipase has not been higher than 197. Patient has mild elevated liver enzymes. She received a banana bag, switched to p.o. thiamine and folate on July 22. Switch to vitamin today. Continue lactulose. Social work met with the patient, identified severe depression, suicidal ideation. She is already had 1 inpatient alcohol detox/rehab in February of this year. Plan: [facility] evaluation Continue lactulose and vitamins (3) Somnolence/hepatic encephalopathy Assessment/Plan: Suspect Ativan drip and librium are strongly contributing to this. She has been weaned off Ativan drip. Librium was reduced from 25 mg to 15 mg and then to 10 mg yesterday. Lactulose 10 mg p.o. twice daily has also been ordered. Patient's ammonia level was 52. Ammonia went up from 52->>74>>54.5 this am. Plan: continue current lactulose. Stop librium. (4) Jaw pain I spoke with nutrition services about this. Begin to focus on Ensure, protein shakes, and unfortunately there is no oral maxillofacial evaluation able to be done at this facility. Gross exam shows a jaw that is stiff at the joints. But no other anatomic abnormalities.
[2020-07-25] MEDS: SODIUM CHLORIDE FLUSH 0.9% 10 ML SYRINGE IVP SCH ×4 (00:40→23:54)
[2020-07-25] MEDS: PANTOPRAZOLE 40 MG TABLET PO SCH (07:04)
[2020-07-25] MEDS: ACETAMINOPHEN 325 MG TABLET PO PRN (07:04)
[2020-07-25] MEDS: NICOTINE 21 MG PATCH TOP SCH (08:51)
[2020-07-25] MEDS: ethyl alcohoL 62% SWAB AMPULE NAS SCH ×2 (08:55→20:46)
[2020-07-25] MEDS: LACTULOSE 10 GM /15 ML UDC PO SCH ×2 (08:57→20:46)
[2020-07-25] MEDS: THIAMINE 100 MG TABLET PO SCH (08:59)
[2020-07-25] MEDS: PRENATAL VITAMIN TABLET PO SCH (08:59)
--- NOTE | 2020-07-25 10:57 | PROVIDER PROGRESS NOTE ---
Subjective - Prog Note Date Prog Note Date: 07/25/20 Prog Note Time: 10:59 - Subjective Pt reports feeling: No change Subjective: she has epsidoes of confusion that are less and less, more fast speech this am. Eating better. anxious Current Medications - Current Medications Current Medications: Active Medications Acetaminophen (Tylenol) 650 mg PO Q4HR PRN PRN Reason: Pain or Fever > 38C (100.4F) Last Admin: 07/25/20 07:04 Dose: 650 mg Documented by: Alcohol (Nozin) 1 amp ALLI BID [facility] Last Admin: 07/25/20 08:55 Dose: 1 amp Documented by: Lactulose (Enulose) 30 gm PO BID [facility] Last Admin: 07/25/20 08:57 Dose: 30 gm Documented by: Lidocaine (Lidoderm Patch) 1 patch TOP DAILY PRN PRN Reason: PAIN Last Admin: 07/20/20 20:51 Dose: 1 patch Documented by: Multi-Ingredient Ointment (Zinc Oxide) 1 applic TOP PRN PRN PRN Reason: Skin Care Last Admin: 07/24/20 04:11 Dose: 1 applic Documented by: Nicotine (Nicoderm) 1 patch TOP DAILY [facility] Last Admin: 07/25/20 08:51 Dose: 1 patch Documented by: Pantoprazole Sodium (Protonix) 40 mg PO QDAC [facility] Last Admin: 07/25/20 07:04 Dose: 40 mg Documented by: Phenol/Menthol (Chloraseptic) 2 sprays MM Q2HR PRN PRN Reason: Throat Pain Multivit/Folic Acid/Iron (Trinatal Rx 1) 1 tab PO DAILYWM [facility] Last Admin: 07/25/20 08:59 Dose: 1 tab Documented by: Sodium Chloride (Normal Saline Flush 0.9%) 10 ml IVP PRN PRN PRN Reason: NEEDED PER PROVIDER ORDERS Last Admin: 07/24/20 00:59 Dose: 10 ml Documented by: Sodium Chloride (Normal Saline Flush 0.9%) 10 ml IVP 0100,0900,1700 [facility] Last Admin: 07/25/20 09:14 Dose: 10 ml Documented by: Thiamine HCl (Vitamin B-1) 100 mg PO DAILY [facility] Last Admin: 07/25/20 08:59 Dose: 100 mg Documented by: Gabapentin [Neurontin] 400 mg PO QID 07/19/20 Lactulose [Generlac] 30 gm PO DAILY 07/19/20 Lactulose [Generlac] 40 gm PO QPM 07/19/20 Lidocaine Patch 5% [Lidoderm Patch] 1 each TOP DAILY 07/19/20 Lipase/Protease/Amylase [Creon Dr 12,000 Units Capsule] 1 each PO TIDWM 07/19/20 Spironolactone [Aldactone] 50 mg PO DAILY 07/19/20 busPIRone [Buspar] 5 mg PO TID 07/19/20 guaiFENesin [Mucinex] 400 mg PO Q6H PRN 07/19/20 hydrOXYzine PAMOATE [Vistaril] 25 - 50 mg PO Q6H PRN 07/19/20 rifAXIMin [Xifaxan] 550 mg PO BID 07/19/20 traZODone [Desyrel] 50 mg PO HS PRN 07/19/20 Objective - Vital Signs/Intake & Output Reviewed Vital Signs: Yes Vital Signs: Vital Signs x48h Temp Pulse Resp BP Pulse Ox 07/25/20 07:55 36.4 C L 85 16 90/56 L 97 Intake & Output: Intake & Output 07/22/20 07/23/20 07/24/20 07/25/20 23:59 23:59 23:59 23:59 Intake Total 3631.934 2036.916 970 240 Output Total 1000 450 0 Balance 2631.934 1586.916 970 240 - Objective General Appearance: positive: No acute distress, Alert Eyes Bilateral: positive: PERRL ENT: positive: No signs of dehydration Neck: positive: No JVD Respiratory: positive: No respiratory distress. negative: Wheezes, Rales, Rhonchi Cardiovascular: positive: Regular rate & rhythm. negative: Systolic murmur, Gallop/S4, Friction rub Abdomen: positive: Non-tender, No organomegaly, Nml bowel sounds, No distention Skin: positive: Warm, Dry. negative: Diaphoresis Extremities: positive: Full ROM, No pedal edema Neurologic/Psychiatric: positive: CN's nml (2-12), Motor nml (motor skills better and faster but still slow. affect less sleepy and more responsive but now getting anxious and nervous), Disoriented to time - Lab Results Fish Bones: 07/24/20 05:52 07/24/20 05:52 Sepsis Event Note (H) - Sepsis Criteria Sepsis Criteria: Recorded Heart Rate greater than 90 bpm, Recorded Respiratory Rate greater than 20, Metabolic: lactate > 2 mmol/L Assessment/Plan - Problem List (1) Generalized weakness Impression: During the stay, she required quite a bit of benzodiazepines and an ICU stay. She was bedbound with this. As the benzodiazepines have been withdrawn, the patient has become increasingly more alert. Today she is agitated, but still needed quite a bit of help with prompting her to eat, sitting up at the side of the bed. She has diffuse generalized weakness. She is unable to be transferred to a alcohol rehab facility because of this weakness. The CDP that came to evaluate her yesterday noted that the patient was transferred to a alcohol rehab facility in [place] in February. The patient was only able to be there for 3 days and then was transferred to a [facility] facility for physical rehab and then retransferred back to the alcohol facility when she was strong enough. Plan: PT evaluation for possible SNF placement for rehab (2) Alcohol withdrawal resolved. Impression: Patient was initially admitted to the [facility] floor on CIWA protocol, Librium 25 mg p.o. every 6 hours. However she consistently was scoring 17-19 on the CIWA scoring. As a result she was transferred to the ICU and placed on Ativan drip . She was on Ativan drip starting July 20. Gradually increasing up to 14 mils per hour. 07/22 she had psychomotor slowing, no agitation, minimal tremor. was eating breakfast. Question of whether hepatic encephalopathy is a problem and she is on lactulose. She was tapered off the Ativan drip 07/22 and kept on Librium 15 mg p.o. 4 times daily. She has stayed stable without tachycardia, diaphoresis or tremulousness Now eating 50-75% of food. Taking good oral intake fluid mckeon. Librium was reduced again 07/23 and transferred from ICU to [facility], and librium stopped 11 am. CIWA protocol not being used since 07/23 so I will take those orders off as well. (2) Alcoholism /alcohol abuse/cirrhosis Assessment/Plan: CT abdomen pelvis done on July 19, 2020 showed a patent appearing TIPS. There was also diffuse hepatic steatosis. Lipase has not been higher than 197. Patient has mild elevated liver enzymes. She received a banana bag, switched to p.o. thiamine and folate on July 22. Switch to vitamin 07/24 Continue lactulose. Social work met with the patient, identified severe depression, suicidal ideation. She is already had 1 inpatient alcohol detox/rehab in February of this year. Plan: CDP evaluation done and as above. Plan for PT and then transfer to SNF for rehab THEN alcohol rehab Continue lactulose and vitamins (3) Somnolence/hepatic encephalopathy resolved. Assessment/Plan: Suspect Ativan drip and librium are strongly contributing to this. She has been weaned off Ativan drip. Librium was reduced from 25 mg to 15 mg and then to 10 mg 07/23. Libirum stopped 07/24. Lactulose 10 mg p.o. twice daily has also been ordered. Patient's ammonia level was 52. Ammonia went up from 52->>74>>54.5 on 07/24 Plan: continue lactulose. (4) Jaw pain I spoke with nutrition services about this 07/24. Begin to focus on Ensure, protein shakes, and unfortunately there is no oral maxillofacial evaluation able to be done at this facility. Gross exam shows a jaw that is stiff at the joints. But no other anatomic abnormalities. She continues to complain of this today but no new exam findings.
[2020-07-26] MEDS: ACETAMINOPHEN 325 MG TABLET PO PRN ×3 (04:42→23:41)
[2020-07-26] MEDS: PANTOPRAZOLE 40 MG TABLET PO SCH (06:19)
--- NOTE | 2020-07-26 07:32 | PROVIDER PROGRESS NOTE ---
Subjective - Prog Note Date Prog Note Date: 07/26/20 Prog Note Time: 18:50 - Subjective Pt reports feeling: No change Subjective: She still has psychomotor slowing. Anxiety is less than yesterday. Is saying that she does not want to do rehab now. Would like to go home. But when we asked her to get up and walk to the bathroom, she does require some assistance she is ataxic. Current Medications - Current Medications Current Medications: Active Medications Acetaminophen (Tylenol) 650 mg PO Q4HR PRN PRN Reason: Pain or Fever > 38C (100.4F) Last Admin: 07/26/20 04:42 Dose: 650 mg Documented by: Alcohol (Nozin) 1 amp ALLI BID [facility] Last Admin: 07/25/20 20:46 Dose: 1 amp Documented by: Lactulose (Enulose) 30 gm PO BID [facility] Last Admin: 07/25/20 20:46 Dose: 30 gm Documented by: Lidocaine (Lidoderm Patch) 1 patch TOP DAILY PRN PRN Reason: PAIN Last Admin: 07/20/20 20:51 Dose: 1 patch Documented by: Multi-Ingredient Ointment (Zinc Oxide) 1 applic TOP PRN PRN PRN Reason: Skin Care Last Admin: 07/24/20 04:11 Dose: 1 applic Documented by: Nicotine (Nicoderm) 1 patch TOP DAILY [facility] Last Admin: 07/25/20 08:51 Dose: 1 patch Documented by: Pantoprazole Sodium (Protonix) 40 mg PO QDAC [facility] Last Admin: 07/26/20 06:19 Dose: 40 mg Documented by: Phenol/Menthol (Chloraseptic) 2 sprays MM Q2HR PRN PRN Reason: Throat Pain Multivit/Folic Acid/Iron (Trinatal Rx 1) 1 tab PO DAILYWM [facility] Last Admin: 07/25/20 08:59 Dose: 1 tab Documented by: Sodium Chloride (Normal Saline Flush 0.9%) 10 ml IVP PRN PRN PRN Reason: NEEDED PER PROVIDER ORDERS Last Admin: 07/24/20 00:59 Dose: 10 ml Documented by: Sodium Chloride (Normal Saline Flush 0.9%) 10 ml IVP 0100,0900,1700 [facility] Last Admin: 07/25/20 23:54 Dose: 10 ml Documented by: Thiamine HCl (Vitamin B-1) 100 mg PO DAILY [facility] Last Admin: 07/25/20 08:59 Dose: 100 mg Documented by: Gabapentin [Neurontin] 400 mg PO QID 07/19/20 Lactulose [Generlac] 30 gm PO DAILY 07/19/20 Lactulose [Generlac] 40 gm PO QPM 07/19/20 Lidocaine Patch 5% [Lidoderm Patch] 1 each TOP DAILY 07/19/20 Lipase/Protease/Amylase [Bulmaro Rosario 12,000 Units Capsule] 1 each PO TIDWM 07/19/20 Spironolactone [Aldactone] 50 mg PO DAILY 07/19/20 busPIRone [Buspar] 5 mg PO TID 07/19/20 guaiFENesin [Mucinex] 400 mg PO Q6H PRN 07/19/20 hydrOXYzine PAMOATE [Vistaril] 25 - 50 mg PO Q6H PRN 07/19/20 rifAXIMin [Xifaxan] 550 mg PO BID 07/19/20 traZODone [Desyrel] 50 mg PO HS PRN 07/19/20 Objective - Vital Signs/Intake & Output Reviewed Vital Signs: Yes Vital Signs: Vital Signs x48h Temp Pulse Resp BP Pulse Ox 07/25/20 23:48 36.9 C 88 20 112/70 97 Intake & Output: Intake & Output 07/23/20 07/24/20 07/25/20 07/26/20 23:59 23:59 23:59 23:59 Intake Total 2036.279 071 4318 938 Output Total 450 0 150 Balance 1586.916 970 947 938 - Objective General Appearance: positive: No acute distress, Alert, Other (Eating up in bed. Very slow motion of bringing food to the mouth. Slow methodical chewing. Takes up to 10 seconds to answer question.) Eyes Bilateral: positive: PERRL, EOMI ENT: positive: No signs of dehydration Neck: positive: No JVD Respiratory: positive: No respiratory distress. negative: Wheezes, Rales, Rhonchi Cardiovascular: positive: Regular rate & rhythm. negative: Gallop/S4, Friction rub Abdomen: positive: Non-tender, No organomegaly, Nml bowel sounds, No distention Skin: positive: Warm, Dry Extremities: positive: Full ROM, Pedal edema (Mild and nonpitting around her ankles) Neurologic/Psychiatric: positive: CN's nml (2-12), Disoriented to time, Slurred/abnml speech. negative: Motor nml (Motor is definitely not normal. Slow, very delayed. But no focal deficits. Occasionally with effort she gets tremulous and anxious.) - Lab Results Fish Bones: 07/24/20 05:52 07/24/20 05:52 ABX Reporting Has patient been on IV antibiotics over the past 48 hours?: No Sepsis Event Note (H) - Sepsis Criteria Sepsis Criteria: Metabolic: lactate > 2 mmol/L Assessment/Plan - Problem List (1) Generalized weakness Impression: During the stay, she required quite a bit of benzodiazepines and an ICU stay. She was bedbound with this. As the benzodiazepines have been withdrawn, the patient has become increasingly more alert. Today she is agitated, but still needed quite a bit of help with prompting her to eat, sitting up at the side of the bed. She has diffuse generalized weakness. She is unable to be transferred to a alcohol rehab facility because of this weakness. The CDP that came to evaluate her yesterday noted that the patient was transferred to a alcohol rehab facility in [place] in February. The patient was only able to be there for 3 days and then was transferred to a custodial facility for physical rehab and then retransferred back to the alcohol facility when she was strong enough. She is now begin evaluated by PT for need for placement for rehab. Their recom mendation: Continue PT working on functional activity progression and safety; recommend SNF after hospital d/c as pt. taking some time to clear her mentation and become more interactive; she is making steady but slow progress. She should be able to transfer via w/c van at d/c. She has been medically clear since 07/24. Plan: seek placement for SNF rehab and then onto alcohol rehab. I have asked social work to see her since she is now stating she does not want to do these things.She wants to go home to her "". But her apparently she has a significant other. He has moved out of there home. He is undergoing chemotherapy. Because Ms. Jones was incontinent of stool, noncompliant, drinking too much, he felt he had to protect himself when he moved into a hotel. (2) Alcohol withdrawal resolved. Impression: Patient was initially admitted to the [facility] floor on CIWA protocol, Librium 25 mg p.o. every 6 hours. However she consistently was scoring 17-19 on the CIWA scoring. As a result she was transferred to the ICU and placed on Ativan drip . She was on Ativan drip starting July 20. Gradually increasing up to 14 mils per hour. 07/22 she had psychomotor slowing, no agitation, minimal tremor. was eating breakfast. Question of whether hepatic encephalopathy is a problem and she is on lactulose. She was tapered off the Ativan drip 07/22 and kept on Librium 15 mg p.o. 4 times daily. She has stayed stable without tachycardia, diaphoresis or tremulousness Now eating 50-75% of food. Taking good oral intake fluid mckeon. Librium was reduced again 07/23 and transferred from ICU to [facility], and librium stopped 07/24 am. CIWA protocol not being used since 07/23 so I took those off. At this time has vitamins, and no other treatment. (2) Alcoholism /alcohol abuse/cirrhosis Assessment/Plan: CT abdomen pelvis done on July 19, 2020 showed a patent appearing TIPS. There was also diffuse hepatic steatosis. Lipase has not been higher than 197. Patient has mild elevated liver enzymes. She received a banana bag, switched to p.o. thiamine and folate on July 22. Switch to vitamin 07/24 Continue lactulose. Social work met with the patient, identified severe depression, suicidal ideation. She is already had 1 inpatient alcohol detox/rehab in February of this year. Plan[facility] and as above. Plan for PT and then transfer to SNF for rehab THEN alcohol rehab Continue lactulose and vitamins (3) Somnolence/hepatic encephalopathy resolved. Assessment/Plan: Suspect Ativan drip and librium were strongly contributing to this. She was weaned off Ativan drip. Librium was reduced from 25 mg to 15 mg and then to 10 mg 07/23. Libirum stopped 07/24. Lactulose 10 mg p.o. twice daily has also been ordered. Patient's ammonia level was 52. Ammonia went up from 52->>74>>54.5 on 07/24 Plan: continue lactulose. (4) Jaw pain I spoke with nutrition services about this 07/24. Begin to focus on Ensure, protein shakes, and unfortunately there is no oral maxillofacial evaluation able to be done at this facility. Gross exam shows a jaw that is stiff at the joints. But no other anatomic abnormalities. She continues to complain of this but no new exam findings.
[2020-07-26] MEDS: LACTULOSE 10 GM /15 ML UDC PO SCH ×2 (09:04→21:11)
[2020-07-26] MEDS: ethyl alcohoL 62% SWAB AMPULE NAS SCH ×2 (09:04→21:11)
[2020-07-26] MEDS: PRENATAL VITAMIN TABLET PO SCH (09:04)
[2020-07-26] MEDS: SODIUM CHLORIDE FLUSH 0.9% 10 ML SYRINGE IVP SCH ×3 (09:05→23:41)
[2020-07-26] MEDS: NICOTINE 21 MG PATCH TOP SCH (09:05)
[2020-07-26] MEDS: THIAMINE 100 MG TABLET PO SCH (09:05)
[2020-07-27] MEDS: ACETAMINOPHEN 325 MG TABLET PO PRN ×3 (03:42→20:51)
[2020-07-27] MEDS: PANTOPRAZOLE 40 MG TABLET PO SCH (05:47)
[2020-07-27] MEDS ORDERED: SUMAtriptan 25 MG TABLET PO STA (06:54)
[2020-07-27] MEDS: PRENATAL VITAMIN TABLET PO SCH (07:35)
--- NOTE | 2020-07-27 08:12 | PROVIDER PROGRESS NOTE ---
Subjective - Prog Note Date Prog Note Date: 07/27/20 Prog Note Time: 13:32 - Subjective Subjective: She has been calling her significant other to pick her up. He has not. Mainly because she is not been able to demonstrate independence. If she goes home, there will be no one to take care of her. Daughter has also been called by the patient. Daughter is not coming to pick up man mom. Patient was seen by physical therapy yesterday.60 y.o. F w/slow responses and tremulous LE's for standing and walking; she is making slow progress but indira nues to have poor safety awareness, is at high risk for falling and moves very slowly w/transfers and walking; she needs a walker for balance and holds her hands out to side and reaches for nearby objects when trying to amb. w/o walker. Recommend continued PT while in the hospital; pt. will need transfer to SNF for continued rehab. (PT and OT) toward improved safety and independence w/mobilty. Current Medications - Current Medications Current Medications: Active Medications Acetaminophen (Tylenol) 650 mg PO Q4HR PRN PRN Reason: Pain or Fever > 38C (100.4F) Last Admin: 07/27/20 03:42 Dose: 650 mg Documented by: Alcohol (Nozin) 1 amp ALLI BID [facility] Last Admin: 07/26/20 21:11 Dose: 1 amp Documented by: Lactulose (Enulose) 30 gm PO BID [facility] Last Admin: 07/26/20 21:11 Dose: 30 gm Documented by: Lidocaine (Lidoderm Patch) 1 patch TOP DAILY PRN PRN Reason: PAIN Last Admin: 07/20/20 20:51 Dose: 1 patch Documented by: Multi-Ingredient Ointment (Zinc Oxide) 1 applic TOP PRN PRN PRN Reason: Skin Care Last Admin: 07/24/20 04:11 Dose: 1 applic Documented by: Nicotine (Nicoderm) 1 patch TOP DAILY [facility] Last Admin: 07/26/20 09:05 Dose: 1 patch Documented by: Pantoprazole Sodium (Protonix) 40 mg PO QDAC [facility] Last Admin: 07/27/20 05:47 Dose: 40 mg Documented by: Phenol/Menthol (Chloraseptic) 2 sprays MM Q2HR PRN PRN Reason: Throat Pain Multivit/Folic Acid/Iron (Trinatal Rx 1) 1 tab PO DAILYWM [facility] Last Admin: 07/27/20 07:35 Dose: 1 tab Documented by: Sodium Chloride (Normal Saline Flush 0.9%) 10 ml IVP PRN PRN PRN Reason: NEEDED PER PROVIDER ORDERS Last Admin: 07/24/20 00:59 Dose: 10 ml Documented by: Sodium Chloride (Normal Saline Flush 0.9%) 10 ml IVP 0100,0900,1700 [facility] Last Admin: 07/26/20 23:41 Dose: 10 ml Documented by: Thiamine HCl (Vitamin B-1) 100 mg PO DAILY [facility] Last Admin: 07/26/20 09:05 Dose: 100 mg Documented by: Gabapentin [Neurontin] 400 mg PO QID 07/19/20 Lactulose [Generlac] 30 gm PO DAILY 07/19/20 Lactulose [Generlac] 40 gm PO QPM 07/19/20 Lidocaine Patch 5% [Lidoderm Patch] 1 each TOP DAILY 07/19/20 Lipase/Protease/Amylase [Bulmaro Dr 12,000 Units Capsule] 1 each PO TIDWM 07/19/20 Spironolactone [Aldactone] 50 mg PO DAILY 07/19/20 busPIRone [Buspar] 5 mg PO TID 07/19/20 guaiFENesin [Mucinex] 400 mg PO Q6H PRN 07/19/20 hydrOXYzine PAMOATE [Vistaril] 25 - 50 mg PO Q6H PRN 07/19/20 rifAXIMin [Xifaxan] 550 mg PO BID 07/19/20 traZODone [Desyrel] 50 mg PO HS PRN 07/19/20 Objective - Vital Signs/Intake & Output Reviewed Vital Signs: Yes Vital Signs: Vital Signs x48h Temp Pulse Resp BP Pulse Ox 07/27/20 00:19 36.8 C 82 18 108/61 96 Intake & Output: Intake & Output 07/24/20 07/25/20 07/26/20 07/27/20 23:59 23:59 23:59 23:59 Intake Total 970 1097 1971 1150 Output Total 0 150 Balance 386 516 0357 1150 - Objective General Appearance: positive: Alert, Other (Again, sitting upright in bed. Able to feed herself but very, very, very slowly. In speaking to her, she will respond appropriately but her responses are delayed as she painfully processes any information or question you may have for her. She will get easily confused. She readily admits that her) Eyes Bilateral: positive: PERRL, EOMI ENT: positive: No signs of dehydration Neck: positive: No JVD. negative: Stiff neck Respiratory: positive: No respiratory distress. negative: Wheezes, Rales, Rhonchi Cardiovascular: positive: Regular rate & rhythm. negative: Gallop/S4, Friction rub Abdomen: positive: Non-tender, No organomegaly, Nml bowel sounds, No distention Skin: positive: Warm, Dry Extremities: positive: Non-tender, No pedal edema Neurologic/Psychiatric: positive: CN's nml (2-12), Disoriented to time, Slurred/abnml speech, Other (She keeps on saying that she can get up and get dr essed and walk out the door. I have explained to her that I do not think she can. But I am willing to see. I have asked her to get up on her own, transfer, stand and walk to the door. She is unable to do so. She is at most able to sit up but can). negative: Motor nml (Slow psychomotor responses.) - Lab Results Fish Bones: 07/24/20 05:52 07/24/20 05:52 ABX Reporting Has patient been on IV antibiotics over the past 48 hours?: No Sepsis Event Note (H) - Sepsis Criteria Sepsis Criteria: Metabolic: lactate > 2 mmol/L Assessment/Plan - Problem List (1) Generalized weakness Impression: During the stay, she required quite a bit of benzodiazepines and an ICU stay. She was bedbound with this. As the benzodiazepines have been withdrawn, the patient has become increasingly more alert. Today she is agitated, but still needed quite a bit of help with prompting her to eat, sitting up at the side of the bed. She has diffuse generalized weakness. She is unable to be transferred to a alcohol rehab facility because of this weakness. The CDP that came to evaluate her yesterday noted that the patient was transferred to a alcohol rehab facility in [place] in February. The patient was only able to be there for 3 days and then [place] [facility] [place] [facility] [place] rehab and then retransferred back to the alcohol facility when she was strong enough. She is now begin evaluated by PT for need for placement for rehab. Their recommendation: Continue PT working on functional activity progression and safety; recommend SNF after hospital d/c as pt. taking some time to clear her mentation and become more interactive; she is making steady but slow progress. She should be able to transfer via w/c van at d/c. Their note from 07/26:60 y.o. F w/slow responses and tremulous LE's for standing and walking; she is making slow progress but continues to have poor safety awareness, is at high risk for falling and moves very slowly w/transfers and walking; she needs a walker for balance and holds her hands out to side and reaches for nearby objects when trying to amb. w/o walker. Recommend continued PT while in the hospital; pt. will need transfer to SNF for continued rehab. (PT and OT) toward improved safety and independence w/mobilty. She has been medically clear since 07/24. Plan: seek placement for SNF rehab and then onto alcohol rehab. Unfortunately she does not want to do this. I will be asking social work to ask for evaluation on the basis of grave disability. (2) Alcohol withdrawal resolved. Impression: Patient was initially admitted to the [facility] floor on CIWA protocol, Librium 25 mg p.o. every 6 hours. However she consistently was scoring 17-19 on the CIWA scoring. As a result she was transferred to the ICU and placed on Ativan drip . She was on Ativan drip starting July 20. Gradually increasing up to 14 mils per hour. 07/22 she had psychomotor slowing, no agitation, minimal tremor. was eating breakfast. Question of whether hepatic encephalopathy is a problem and she is on lactulose. She was tapered off the Ativan drip 07/22 and kept on Librium 15 mg p.o. 4 times daily. She has stayed stable without tachycardia, diaphoresis or tremulousness Now eating 50-75% of food. Taking good oral intake fluid mckeon. Librium was reduced again 07/23 and transferred from ICU to [facility], and librium stopped 11/12 am. CIWA protocol not being used since 07/23 so I took those off. At this time has vitamins, and no other treatment. (2) Alcoholism /alcohol abuse/cirrhosis Assessment/Plan: CT abdomen pelvis done on July 19, 2020 showed a patent appearing TIPS. There was also diffuse hepatic steatosis. Lipase has not been higher than 197. Patient has mild elevated liver enzymes. She received a banana bag, switched to p.o. thiamine and folate on July 22. Switch to vitamin 07/24 Continue lactulose. Social work met with the patient, identified severe depression, suicidal ideation. She is already had 1 inpatient alcohol detox/rehab in February of this year. Plan: [facility] evaluation done and as above #1 A/P Plan for PT and then transfer to SNF for rehab THEN alcohol rehab Continue lactulose and vitamins (3) Somnolence/hepatic encephalopathy resolved. Assessment/Plan: Suspect Ativan drip and librium were strongly contributing to this. She was weaned off Ativan drip. Librium was reduced from 25 mg to 15 mg and then to 10 mg 07/23. Libirum stopped 07/24. In spite of that, the patient continues to have slurred speech, slow thought process, motor slowing. Weak and tremulous with exertion. She may be at baseline. Lactulose 10 mg p.o. twice daily has also been ordered. Patient's ammonia level was 52. Ammonia went up from 52->>74>>54.5 on 07/24. Think hepatic encephalopathy is the problem at this time. Plan: continue lactulose. (4) Jaw pain I spoke with nutrition services about this 07/24. Begin to focus on Ensure, protein shakes, and unfortunately there is no oral maxillofacial evaluation able to be done at this facility. Gross exam shows a jaw that is stiff at the joints. But no other anatomic abnormalities. She continues to complain of this but no new exam findings.
[2020-07-27] MEDS: ethyl alcohoL 62% SWAB AMPULE NAS SCH ×2 (08:38→20:51)
[2020-07-27] MEDS: THIAMINE 100 MG TABLET PO SCH (08:38)
[2020-07-27] MEDS: LACTULOSE 10 GM /15 ML UDC PO SCH ×2 (08:38→20:50)
[2020-07-27] MEDS: NICOTINE 21 MG PATCH TOP SCH (08:38)
[2020-07-27] MEDS: SODIUM CHLORIDE FLUSH 0.9% 10 ML SYRINGE IVP SCH ×3 (08:45→23:57)
[2020-07-27] MEDS: SODIUM CHLORIDE FLUSH 0.9% 10 ML SYRINGE IVP PRN (08:45)
[2020-07-27] MEDS ORDERED: IBUPROFEN 800 MG TABLET PO STA (16:10)
[2020-07-28] MEDS ORDERED: SUMAtriptan 25 MG TABLET PO STA (01:28)
[2020-07-28] MEDS: PANTOPRAZOLE 40 MG TABLET PO SCH (06:28)
[2020-07-28] MEDS: ACETAMINOPHEN 325 MG TABLET PO PRN ×2 (07:46→13:23)
[2020-07-28] MEDS: PRENATAL VITAMIN TABLET PO SCH (07:46)
[2020-07-28] MEDS: THIAMINE 100 MG TABLET PO SCH (08:50)
[2020-07-28] MEDS: ethyl alcohoL 62% SWAB AMPULE NAS SCH ×2 (08:50→20:40)
[2020-07-28] MEDS: LACTULOSE 10 GM /15 ML UDC PO SCH ×2 (08:50→20:40)
[2020-07-28] MEDS: NICOTINE 21 MG PATCH TOP SCH (08:50)
[2020-07-28] MEDS: SODIUM CHLORIDE FLUSH 0.9% 10 ML SYRINGE IVP SCH ×3 (08:51→23:32)
[2020-07-28] MEDS: LORazepam 1 MG TABLET PO PRN ×3 (09:33→22:12)
--- NOTE | 2020-07-28 18:06 | PROVIDER PROGRESS NOTE ---
Subjective - Prog Note Date Prog Note Date: 07/28/20 Prog Note Time: 18:04 - Subjective Subjective: The patient keeps insisting she is going home. 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 Able to walk a little bit more for longer distances but with a slow shuffling gait, still easily confused, and slow thought process. [employer]er received follow up call from Lisa with [facility] ([phone]) who stated that due to the patient not having a disability, not under home health, and is under the age of 60 - the patient is being screened out due to not meeting criteria of a vulnerable adult. If the patient does get discharged with home health services, the patient would then meet criteria as a vulnerable adult and a new [facility] report would need to be filed as this current report that was filed is being screened out. Current Medications - Current Medications Current Medications: Active Medications Acetaminophen (Tylenol) 650 mg PO Q4HR PRN PRN Reason: Pain or Fever > 38C (100.4F) Last Admin: 07/28/20 13:23 Dose: 650 mg Documented by: Alcohol (Nozin) 1 amp ALLI BID [facility] Last Admin: 07/28/20 08:50 Dose: 1 amp Documented by: Lactulose (Enulose) 30 gm PO BID [facility] Last Admin: 07/28/20 08:50 Dose: Not Given Documented by: Lidocaine (Lidoderm Patch) 1 patch TOP DAILY PRN PRN Reason: PAIN Last Admin: 07/20/20 20:51 Dose: 1 patch Documented by: Lorazepam (Ativan) 1 mg PO Q6H PRN PRN Reason: Anxiety Last Admin: 07/28/20 16:07 Dose: 1 mg Documented by: Multi-Ingredient Ointment (Zinc Oxide) 1 applic TOP PRN PRN PRN Reason: Skin Care Last Admin: 07/24/20 04:11 Dose: 1 applic Documented by: Nicotine (Nicoderm) 1 patch TOP DAILY [facility] Last Admin: 07/28/20 08:50 Dose: 1 patch Documented by: Pantoprazole Sodium (Protonix) 40 mg PO QDAC [facility] Last Admin: 07/28/20 06:28 Dose: 40 mg Documented by: Phenol/Menthol (Chloraseptic) 2 sprays MM Q2HR PRN PRN Reason: Throat Pain Multivit/Folic Acid/Iron (Trinatal Rx 1) 1 tab PO DAILYWM [facility] Last Admin: 07/28/20 07:46 Dose: 1 tab Documented by: Sodium Chloride (Normal Saline Flush 0.9%) 10 ml IVP PRN PRN PRN Reason: NEEDED PER PROVIDER ORDERS Last Admin: 07/27/20 08:45 Dose: 10 ml Documented by: Sodium Chloride (Normal Saline Flush 0.9%) 10 ml IVP 0100,0900,1700 [facility] Last Admin: 07/28/20 16:43 Dose: Not Given Documented by: Thiamine HCl (Vitamin B-1) 100 mg PO DAILY [facility] Last Admin: 07/28/20 08:50 Dose: 100 mg Documented by: Gabapentin [Neurontin] 400 mg PO QID 07/19/20 Lactulose [Generlac] 30 gm PO DAILY 07/19/20 Lactulose [Generlac] 40 gm PO QPM 07/19/20 Lidocaine Patch 5% [Lidoderm Patch] 1 each TOP DAILY 07/19/20 Lipase/Protease/Amylase [Cretommy Dr 12,000 Units Capsule] 1 each PO TIDWM 07/19/20 Spironolactone [Aldactone] 50 mg PO DAILY 07/19/20 busPIRone [Buspar] 5 mg PO TID 07/19/20 guaiFENesin [Mucinex] 400 mg PO Q6H PRN 07/19/20 hydrOXYzine PAMOATE [Vistaril] 25 - 50 mg PO Q6H PRN 07/19/20 rifAXIMin [Xifaxan] 550 mg PO BID 07/19/20 traZODone [Desyrel] 50 mg PO HS PRN 07/19/20 Objective - Vital Signs/Intake & Output Reviewed Vital Signs: Yes Vital Signs: Vital Signs x48h Temp Pulse Resp BP Pulse Ox 07/28/20 15:33 36.3 C L 81 16 119/61 98 Intake & Output: Intake & Output 07/25/20 07/26/20 07/27/20 07/28/20 23:59 23:59 23:59 23:59 Intake Total 1097 1971 1953 850 Output Total 150 Balance 947 1971 1953 850 - Objective General Appearance: positive: Alert, Other (Vacant gaze, occasionally agitated, able to feed herself with slow deliberate movements. Nursing asked for Ativan today when she was agitated) Eyes Bilateral: positive: PERRL, EOMI ENT: positive: Pharynx nml, No signs of dehydration Neck: positive: No JVD Respiratory: positive: Chest non-tender. negative: Wheezes, Rales, Rhonchi Cardiovascular: positive: Regular rate & rhythm. negative: Gallop/S4, Friction rub Abdomen: positive: Non-tender, No organomegaly, Nml bowel sounds, No distention Skin: positive: Warm, Dry Extremities: positive: Non-tender, No pedal edema Neurologic/Psychiatric: positive: CN's nml (2-12), Disoriented to time, Slurred/abnml speech. negative: Motor nml (Slow movements, deliberate, tremulous if she moves too fast) - Lab Results Fish Bones: 07/24/20 05:52 07/24/20 05:52 Sepsis Event Note (H) - Sepsis Criteria Sepsis Criteria: Metabolic: lactate > 2 mmol/L Assessment/Plan - Problem List (1) Generalized weakness Impression: This is the main reason that she has been here for the last few days. Medically stable and initially agreed to rehab. She has since changed her mind. She would like to go home. We are waiting for her to be strong enough for her to walk out of her own volition without relying on significant other or stepdaughter to pick her up. Both zipped up daughter and significant other are alarmed at the idea of her going home. They do not want to take care of her If she needs care and cannot be independent at home. Significant other is also aware that she can go back to drinking. He has no control over this. She gets would be taxi service and hires them to go buy her alcohol and bring it back to her.
[2020-07-29] MEDS: LORazepam 1 MG TABLET PO PRN ×3 (04:15→15:54)
[2020-07-29] MEDS: PANTOPRAZOLE 40 MG TABLET PO SCH (05:58)
[2020-07-29] MEDS: LACTULOSE 10 GM /15 ML UDC PO SCH (08:20)
[2020-07-29] MEDS: PRENATAL VITAMIN TABLET PO SCH (08:20)
[2020-07-29] MEDS: ethyl alcohoL 62% SWAB AMPULE NAS SCH (08:20)
[2020-07-29] MEDS: THIAMINE 100 MG TABLET PO SCH (08:20)
[2020-07-29] MEDS: NICOTINE 21 MG PATCH TOP SCH ×2 (08:21→15:55)
[2020-07-29] MEDS: SODIUM CHLORIDE FLUSH 0.9% 10 ML SYRINGE IVP SCH ×2 (08:22→17:40)
--- NOTE | 2020-07-29 13:53 | PROVIDER PROGRESS NOTE ---
Assessment/Plan - Problem List (1) Alcohol abuse Assessment/Plan: Patient has a long history of alcohol abuse with many times admission in the hospital. All intervention for patient alcohol abuse which seem failed in the previous. It is in the documentation patient continually use alcohol, and potential serious harm to her self although pt did express hope to be d/c to home. As it was noted previously by DCR, patient is detainable under Juan's Law, a new attestation was completed by social work, and me, and fax to DCR. It is pending dispatch DCR for further evaluation and potential detainment under Juan[place] law. Continue , vitamin B1, Ativan as needed. (2) Alcoholic hepatic failure without coma Assessment/Plan: Patient has long history of alcohol abuse and caused alcoholic hepatic failure but without coma. pt is alert and oriented. Unfortunately Patient continue to have alcohol abusive and potential serious harm to herself. Consult with social work, and DCR. Continue lactulose in the hospital, continue vital signs closely monitor patient. (3) Weakness Assessment/Plan: Improved, patient can walk by herself to the bathroom. We will continue consult with physical therapist. - Current Meds Current Meds: Current Medications Generic Name Dose Route Start Last Admin Trade Name Freq PRN Reason Stop Dose Admin Acetaminophen 650 mg 07/20/20 07:29 07/28/20 13:23 Tylenol PO 650 mg Q4HR PRN Administration Pain or Fever > 38C (100.4F) Alcohol 1 amp 07/20/20 09:00 07/29/20 08:20 Nozin ALLI 1 amp BID MEDARDO Administration Lactulose 30 gm 07/22/20 09:00 07/29/20 08:20 Enulose PO 30 gm BID MEDARDO Administration Lidocaine 1 patch 07/20/20 07:55 07/20/20 20:51 Lidoderm Patch TOP 1 patch DAILY PRN Administration PAIN Lorazepam 1 mg 07/28/20 09:07 07/29/20 10:07 Ativan PO 1 mg Q6H PRN Administration Anxiety Multi-Ingredient Ointment 1 applic 07/19/20 07:36 07/24/20 04:11 Zinc Oxide TOP 1 applic PRN PRN Administration Skin Care Nicotine 1 patch 07/19/20 18:29 07/29/20 08:21 Nicoderm TOP 1 patch DAILY MEDARDO Administration Pantoprazole Sodium 40 mg 07/19/20 07:00 07/29/20 05:58 Protonix PO 40 mg QDAC MEDARDO Administration Multivit/Folic Acid/Iron 1 tab 07/25/20 09:00 07/29/20 08:20 Trinatal Rx 1 PO 1 tab DAILYWM MEDARDO Administration Sodium Chloride 10 ml 07/19/20 05:15 07/27/20 08:45 Normal Saline Flush 0.9% IVP 10 ml PRN PRN Administration NEEDED PER PROVIDER ORDERS Sodium Chloride 10 ml 07/19/20 09:00 07/29/20 08:22 Normal Saline Flush 0.9% IVP Not Given 0100,0900,1700 MEDARDO Thiamine HCl 100 mg 07/23/20 09:00 07/29/20 08:20 Vitamin B-1 PO 100 mg DAILY MEDARDO Administration - Lab Result Fish Bone Diagrams: 07/24/20 05:52 07/24/20 05:52 Subjective - Subjective Patient Reports: Feeling Better Objective Vital Signs: Vital Signs - 24 hr 07/28/20 07/28/20 07/29/20 15:33 23:41 08:45 Temperature 36.3 C L 37.1 C 37 C Heart Rate [ 81 86 88 Brachial] Respiratory 16 16 16 Rate Blood Pressure 89/48 L [Left Brachial artery] Blood Pressure 119/61 102/62 [Right Brachial artery] O2 Saturation 98 94 97 Oxygen O2 Source Room air I&O (Last 24 Hrs): Intake and Output Totals x24h 07/27/20 07/28/20 07/29/20 23:59 23:59 23:59 Intake Total 1953 1236 720 Balance 1953 1236 720 General: Alert, No acute distress HEENT: Atraumatic Neck: Supple Lymphatic: no adenopathy Neuro: Alert, Non Focal Cardiovascular: Regular rate, Normal S1, Normal S2 Respiratory: Chest non-tender, No respiratory distress, Breath sounds nml Abdomen: Normal bowel sounds, Soft Extremities: Normal pulses Skin: No rashes - Results Results: Laboratory Results WBC 4.7 x10^3/uL (4.8-10.8) L 07/24/20 05:52 RBC 3.65 10^6/uL (4.20-5.40) L 07/24/20 05:52 Hgb 10.6 g/dL (12.0-16.0) L 07/24/20 05:52 Hct 32.2 % (37.0-47.0) L 07/24/20 05:52 MCV 88.2 fL (81.0-99.0) 07/24/20 05:52 MCH 29.0 pg (27.0-31.0) 07/24/20 05:52 MCHC 32.9 g/dL (32.0-36.0) 07/24/20 05:52 RDW 24.9 % (12.0-15.0) H 07/24/20 05:52 Plt Count 116 10^3/uL (130-450) L 07/24/20 05:52 MPV 10.5 fL (7.9-10.8) 07/24/20 05:52 Neut # (Auto) 2.5 10^3/uL (1.5-6.6) 07/24/20 05:52 Lymph # (Auto) 1.4 10^3/uL (1.5-3.5) L 07/24/20 05:52 Page # (Auto) 0.6 10^3/uL (0.0-1.0) 07/24/20 05:52 Eos # (Auto) 0.1 10^3/uL (0.0-0.7) 07/24/20 05:52 Baso # (Auto) 0.0 10^3/uL (0.0-0.1) 07/24/20 05:52 Absolute Nucleated RBC 0.00 x10^3/uL 07/24/20 05:52 Nucleated RBC % 0.0 /100WBC 07/24/20 05:52 Manual Slide Review Indicated 07/24/20 05:52 WBC Morphology NORMAL APPEARANCE (NORMAL) 07/22/20 04:45 Platelet Estimate DECREASED (<130,000) (NORMAL) 07/24/20 05:52 Platelet Morphology NORMAL APPEARANCE (NORMAL) 07/22/20 04:45 RBC Morph Micro Appear 2+ ANISOCYTOSIS (NORMAL) 1+ MACROCYTOSIS (NORMAL) 1+ MICROCYTOSIS (NORMAL) 1+ HYPOCHROMASIA (NORMAL) 1+ POLYCHROMASIA (NORMAL) 07/24/20 05:52 RBC Morph Micro Appear 2+ ANISOCYTOSIS (NORMAL) 1+ MACROCYTOSIS (NORMAL) 1+ MICROCYTOSIS (NORMAL) 1+ HYPOCHROMASIA (NORMAL) 1+ POLYCHROMASIA (NORMAL) 07/24/20 05:52 RBC Morph Micro Appear 2+ ANISOCYTOSIS (NORMAL) 1+ MACROCYTOSIS (NORMAL) 1+ MICROCYTOSIS (NORMAL) 1+ HYPOCHROMASIA (NORMAL) 1+ POLYCHROMASIA (NORMAL) 07/24/20 05:52 RBC Morph Micro Appear 2+ ANISOCYTOSIS (NORMAL) 1+ MACROCYTOSIS (NORMAL) 1+ MICROCYTOSIS (NORMAL) 1+ HYPOCHROMASIA (NORMAL) 1+ POLYCHROMASIA (NORMAL) 07/24/20 05:52 RBC Morph Micro Appear 2+ ANISOCYTOSIS (NORMAL) 1+ MACROCYTOSIS (NORMAL) 1+ MICROCYTOSIS (NORMAL) 1+ HYPOCHROMASIA (NORMAL) 1+ POLYCHROMASIA (NORMAL) 07/24/20 05:52 PT 16.3 secs (9.9-12.6) H 07/20/20 04:40 INR 1.5 (0.8-1.2) H 07/20/20 04:40 D-Dimer 658.7 ng/mL (200.0-255.0) H 07/18/20 21:15 VBG pH 7.519 (7.31-7.41) H 07/23/20 04:10 VBG pCO2 21.4 mmHg (41-51) L 07/18/20 21:52 VBG pO2 57.5 mmHg (25-47) H 07/18/20 21:52 VBG HCO3 11.2 mmol/L (23-28) L 07/18/20 21:52 VBG Total CO2 11.8 mmol/L (24-29) L 07/18/20 21:52 VBG O2 Saturation 85.5 % (60-80) H 07/18/20 21:52 VBG Base Excess -13.6 mmol/L (-2 - +2) L 07/18/20 21:52 Ionized Calcium 1.07 mmol/L (1.15-1.33) L 07/23/20 04:10 Sodium 139 mmol/L (135-145) 07/24/20 05:52 Potassium 3.6 mmol/L (3.5-5.0) 07/24/20 05:52 Chloride 108 mmol/L (101-111) 07/24/20 05:52 Carbon Dioxide 24 mmol/L (21-32) 07/24/20 05:52 Anion Gap 7.0 (6-13) 07/24/20 05:52 BUN 6 mg/dL (6-20) 07/24/20 05:52 Creatinine 0.5 mg/dL (0.4-1.0) 07/24/20 05:52 Estimated GFR (MDRD) 126 (>89) 07/24/20 05:52 Glucose 97 mg/dL (70-100) 07/24/20 05:52 Lactic Acid 1.7 mmol/L (0.5-2.2) 07/19/20 13:15 Calcium 8.6 mg/dL (8.5-10.3) 07/24/20 05:52 Phosphorus 2.8 mg/dL (2.5-4.6) 07/23/20 04:10 Magnesium 1.7 mg/dL (1.7-2.8) 07/23/20 04:10 Total Bilirubin 0.8 mg/dL (0.2-1.0) 07/24/20 05:52 AST 99 IU/L (10-42) H 07/24/20 05:52 ALT 73 IU/L (10-60) H 07/24/20 05:52 Alkaline Phosphatase 295 IU/L (42-121) H 07/24/20 05:52 Ammonia 54.5 umol/L (7-35) H 07/24/20 05:52 B-Natriuretic Peptide 18 pg/mL (5-100) 07/18/20 21:15 Total Protein 6.2 g/dL (6.7-8.2) L 07/24/20 05:52 Albumin 2.9 g/dL (3.2-5.5) L 07/24/20 05:52 Globulin 3.3 g/dL (2.1-4.2) 07/24/20 05:52 Albumin/Globulin Ratio 0.9 (1.0-2.2) L 07/24/20 05:52 Lipase 82 U/L (22-51) H 07/22/20 04:45 Urine Color YELLOW 07/18/20 21:40 Urine Clarity CLEAR (CLEAR) 07/18/20 21:40 Urine pH 6.5 PH (5.0-7.5) 07/18/20 21:40 Ur Specific [place] 1.020 (1.002-1.030) 07/18/20 21:40 Urine Protein NEGATIVE mg/dL (NEGATIVE) 07/18/20 21:40 Urine Glucose (UA) NEGATIVE mg/dL (NEGATIVE) 07/18/20 21:40 Urine Ketones NEGATIVE mg/dL (NEGATIVE) 07/18/20 21:40 Urine Occult Blood NEGATIVE (NEGATIVE) 07/18/20 21:40 Urine Nitrite NEGATIVE (NEGATIVE) 07/18/20 21:40 Urine Bilirubin NEGATIVE (NEGATIVE) 07/18/20 21:40 Urine Urobilinogen 0.2 (NORMAL) E.U./dL (NORMAL) 07/18/20 21:40 Ur Leukocyte Esterase NEGATIVE (NEGATIVE) 07/18/20 21:40 Ur Microscopic Review NOT INDICATED 07/18/20 21:40 Urine Culture Comments NOT INDICATED 07/18/20 21:40 Nasal Screen MRSA (PCR) POSITIVE (NEGATIVE) A* 07/19/20 23:10 Urine Opiates Screen NEGATIVE (NEGATIVE) 07/18/20 21:40 Ur Oxycodone Screen NEGATIVE (NEGATIVE) 07/18/20 21:40 Urine Methadone Screen NEGATIVE (NEGATIVE) 07/18/20 21:40 Ur Propoxyphene Screen NEGATIVE (NEGATIVE) 07/18/20 21:40 Ur Barbiturates Screen NEGATIVE (NEGATIVE) 07/18/20 21:40 Ur Tricyclics Screen NEGATIVE (NEGATIVE) 07/18/20 21:40 Ur Phencyclidine Scrn NEGATIVE (NEGATIVE) 07/18/20 21:40 Ur Amphetamine Screen NEGATIVE (NEGATIVE) 07/18/20 21:40 U Methamphetamines Scrn NEGATIVE (NEGATIVE) 07/18/20 21:40 U Benzodiazepines Scrn NEGATIVE (NEGATIVE) 07/18/20 21:40 Urine Cocaine Screen NEGATIVE (NEGATIVE) 07/18/20 21:40 U Cannabinoids Screen NEGATIVE (NEGATIVE) 07/18/20 21:40 Ethyl Alcohol 412.2 mg/dL 07/18/20 21:15 Serum Ketones NEGATIVE (NEGATIVE) 07/18/20 21:15 SARS-CoV-2 (PCR) NOT DETECTED 07/18/20 22:21 - Procedures Procedures: Procedures (02/11/19) DRAINAGE OF PERITONEAL CAVITY, PERCUTANEOUS APPROACH, DIAGN (12/06/18) Sepsis Event Note (H) - Sepsis Criteria Sepsis Criteria: Metabolic: lactate > 2 mmol/L ABX Reporting Has patient been on IV antibiotics over the past 48 hours?: No Current Medications - Current Medications Current Medications: Active Medications Acetaminophen (Tylenol) 650 mg PO Q4HR PRN PRN Reason: Pain or Fever > 38C (100.4F) Last Admin: 07/28/20 13:23 Dose: 650 mg Documented by: Alcohol (Nozin) 1 amp ALLI BID [facility] Last Admin: 07/29/20 08:20 Dose: 1 amp Documented by: Lactulose (Enulose) 30 gm PO BID [facility] Last Admin: 07/29/20 08:20 Dose: 30 gm Documented by: Lidocaine (Lidoderm Patch) 1 patch TOP DAILY PRN PRN Reason: PAIN Last Admin: 07/20/20 20:51 Dose: 1 patch Documented by: Lorazepam (Ativan) 1 mg PO Q6H PRN PRN Reason: Anxiety Last Admin: 07/29/20 10:07 Dose: 1 mg Documented by: Multi-Ingredient Ointment (Zinc Oxide) 1 applic TOP PRN PRN PRN Reason: Skin Care Last Admin: 07/24/20 04:11 Dose: 1 applic Documented by: Nicotine (Nicoderm) 1 patch TOP DAILY [facility] Last Admin: 07/29/20 08:21 Dose: 1 patch Documented by: Pantoprazole Sodium (Protonix) 40 mg PO QDAC [facility] Last Admin: 07/29/20 05:58 Dose: 40 mg Documented by: Phenol/Menthol (Chloraseptic) 2 sprays MM Q2HR PRN PRN Reason: Throat Pain Multivit/Folic Acid/Iron (Trinatal Rx 1) 1 tab PO DAILYWM [facility] Last Admin: 07/29/20 08:20 Dose: 1 tab Documented by: Sodium Chloride (Normal Saline Flush 0.9%) 10 ml IVP PRN PRN PRN Reason: NEEDED PER PROVIDER ORDERS Last Admin: 07/27/20 08:45 Dose: 10 ml Documented by: Sodium Chloride (Normal Saline Flush 0.9%) 10 ml IVP 0100,0900,1700 [facility] Last Admin: 07/29/20 08:22 Dose: Not Given Documented by: Thiamine HCl (Vitamin B-1) 100 mg PO DAILY [facility] Last Admin: 07/29/20 08:20 Dose: 100 mg Documented by: Gabapentin [Neurontin] 400 mg PO QID 07/19/20 Lactulose [Generlac] 30 gm PO DAILY 07/19/20 Lactulose [Generlac] 40 gm PO QPM 07/19/20 Lidocaine Patch 5% [Lidoderm Patch] 1 each TOP DAILY 07/19/20 Lipase/Protease/Amylase [Bulmaro Rosario 12,000 Units Capsule] 1 each PO TIDWM 07/19/20 Spironolactone [Aldactone] 50 mg PO DAILY 07/19/20 busPIRone [Buspar] 5 mg PO TID 07/19/20 guaiFENesin [Mucinex] 400 mg PO Q6H PRN 07/19/20 hydrOXYzine PAMOATE [Vistaril] 25 - 50 mg PO Q6H PRN 07/19/20 rifAXIMin [Xifaxan] 550 mg PO BID 07/19/20 traZODone [Desyrel] 50 mg PO HS PRN 07/19/20
[2020-07-30] MEDS: LORazepam 1 MG TABLET PO PRN ×3 (00:53→12:54)
[2020-07-30] MEDS: ethyl alcohoL 62% SWAB AMPULE NAS SCH ×2 (00:53→08:28)
[2020-07-30] MEDS: SODIUM CHLORIDE FLUSH 0.9% 10 ML SYRINGE IVP SCH ×2 (00:54→08:33)
[2020-07-30] MEDS: LACTULOSE 10 GM /15 ML UDC PO SCH ×2 (00:54→08:32)
[2020-07-30 01:02] VITALS: BP 106/59
[2020-07-30] MEDS: PANTOPRAZOLE 40 MG TABLET PO SCH (06:49)
[2020-07-30] MEDS ORDERED: busPIRone 5 MG TABLET PO SCH (08:00)
[2020-07-30] MEDS: NICOTINE 21 MG PATCH TOP SCH (08:32)
[2020-07-30] MEDS: PRENATAL VITAMIN TABLET PO SCH (08:32)
[2020-07-30] MEDS: THIAMINE 100 MG TABLET PO SCH (08:33)
--- NOTE | 2020-07-30 10:30 | Discharge Plan ---
Discharge Plan Problem Reviewed?: Yes Disposition: Home, Self Care Condition: Poor Prescriptions: Pnv No.95/Ferrous Fum/Folic AC [ Tablet] 1 each PO DAILY #30 tablet Thiamine HCl [Vitamin B-1] 100 mg PO DAILY #30 tablet Diet: Regular Activity Restrictions: Activity as Tolerated Shower Restrictions: No (fall precaution) Instruction Topics: Alcoholism, Alcoholism Get Help, Addiction Alcohol, Withdrawal Alcohol What Expect, Addiction Social Use Signs Health Concerns: alcoholism, weakness Plan of Treatment: strongly advise pt quit alcohol, you state you will quit. For your weakness, you declined to be d/c SNF, advise you be very safely for ambulation. Care Goals: stabilization and improvement of your medical conditions. Assessment: discussed the care plan with you, you understood and agreed. Additional Instructions or Follow Up instructions: You may followup with your PCP in one to two weeks. Should your symptoms return or worsen, you may present ER or call 911 for help. No Smoking: If you smoke, Please STOP! Call for help. Follow-up with: BRYAN TOBIAS MD [Primary Care Provider] -
--- NOTE | 2020-07-30 10:40 | DISCHARGE SUMMARY ---
Discharge Summary Admit Date: 07/19/20 Discharge Date: 07/30/20 Discharging Provider: Israel Breaux Primary Care Provider: Vasiliy Amezcua Condition at Discharge: Poor Discharge Disposition: 01 Home, Self Care Discharge Facility Name: home - DIAGNOSES Discharge Diagnoses with Status of Each Condition: (1) Alcohol intoxication resolved pt's acute intoxication after 11 days inpt. pt has no nausea or vomiting. pt's shaking is better controlled today. pt can walk without assistance. Patient was strongly advised to quit alcohol. Patient states she will quit alcohol. Social work, and DCR of [facility] try to help patient for inpt rehab but patient refused. DCR released pt until today. pt is alert and oriented plus 4 on today. Patient also refused the care of hospital, she stated she wanted to be discharged to home today. Patient is prescribed and vitamin B1 (2) Alcoholism /alcohol abuse/cirrhosis stable. Patient was treated according [facility] protocol. CT abdomen pelvis done on July 19, 2020 showed a patent appearing TIPS. She received a banana bag, switched to p.o. thiamine and folate on July 22. Continue home lactulose and xifaxan. Social work, and DCR of [facility] try to help patient for inpt rehab but patient refused. DCR released pt until today. pt is alert and oriented plus 4 on today. Patient also refused the care of hospital, she stated she wanted to be discharged to home today. Patient is prescribed and vitamin B1 (3) weakness significantly improved, pt can walk without assistance. PT saw the patient, and recommended patient does no need extra PT/OT service at this point. Meanwhile pt was strongly refusing to be d/c to SNF. pt request to be d/c to home on today. pt was strongly advise and educated for fall precaution and quit alcohol. - HPI History of Present Illness: refer from Dr. Bhatti's HPI on 07/19/2020 Patient is a 60-year-old female with medical history significant for alcohol abuse, cirrhosis for which she has undergone TIPS procedure, history of pancreatitis, coronary artery disease, COPD, PTSD, anxiety, chronic pain who presented to the ED with complaint of multiple falls. It is difficult to objectively ascertain the patient's actual complains because she has a weinberg positive review of system. Objectively in the ED she was found to be tachycardic with a heart rate as high as 120s, tachypneic, febrile with a temperature of 38 C. She also had a lactic acid of 3.8. She was also intoxicated with an alcohol level of 412. Despite this level of alcohol she also appeared to be tremulous. She reports drinking a box of wine which is about 3 L today. She will go for months without drinking and then binge drink. She has been binge drinking for the past 5 days. Her lipase level was 318. 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 She reports chest pain, dyspnea, abdominal pain, nausea, vomiting. She was initially presented for concern of being septic. She is being admitted for further treatment. - HOSPITAL COURSE Hospital Course: pt was admitted for alcohol intoxication/withdrawal, fall in the home, generalized pain and weakness. pt continue drunk at home. her alcohol level was over 400 in the admission. she consistently was scoring 17-19 on the CIWA scoring. As a result she was transferred to the ICU and placed on Ativan drip During the hospital stay. Patient had PT evaluation and treatment and patient was initially recommended to discharge to SNF but patient refused to be d/c to SNF. caseworker intake was consulted for uncontrolled and persistent alcohol drunk and intoxication behaviors, and DCR was reported as well. As it was noted previously by DCR, patient is detainable under Juan's Law, a new attestation was completed by social work, signed by hospitalist. Natali DCR report that [facility] have declined pt, but recommending that patient be hospitalized or go to a SNF for at least one week and be completely independent with her ADLs prior to going to inpatient treatment for substance use. At pt was treated in the hospital, pt had significantly improved in her weakness. PT saw the patient, and recommend patient does no need extra PT/OT service at this point. Meanwhile pt was strongly refusing to be d/c to SNF. pt strongly request to be d/c to home on today. pt was strongly advised and educated for fall precaution and quit alcohol. pt is alert and oriented plus 4. - ALLERGIES Allergies/Adverse Reactions: Allergies Allergy/AdvReac Type Severity Reaction Status Date / Time ketorolac tromethamine * Allergy Severe Hives Verified 07/18/20 21:30 [From Toradol] - MEDICATIONS Home Medications: Ambulatory Orders Medication Instructions Recorded Confirmed Multivitamin [Multiple Vitamins] 1 each PO DAILY #10 tablet 01/11/19 11/07/20 Pantoprazole [Protonix] 40 mg PO BID #30 tablet 03/03/19 07/19/20 Furosemide [Lasix] 20 mg PO DAILY #30 tablet 12/07/19 07/19/20 Gabapentin [Neurontin] 400 mg PO QID 07/19/20 07/19/20 Lactulose [Generlac] 30 gm PO DAILY 07/19/20 07/19/20 Lactulose [Generlac] 40 gm PO QPM 07/19/20 07/19/20 Lidocaine Patch 5% [Lidoderm Patch] 1 each TOP DAILY 07/19/20 07/19/20 Lipase/Protease/Amylase [Creon Dr 1 each PO TIDWM 07/19/20 07/19/20 12,000 Units Capsule] Spironolactone [Aldactone] 50 mg PO DAILY 07/19/20 07/19/20 busPIRone [Buspar] 5 mg PO TID 07/19/20 07/19/20 guaiFENesin [Mucinex] 400 mg PO Q6H PRN 07/19/20 07/19/20 hydrOXYzine PAMOATE [Vistaril] 25 - 50 mg PO Q6H PRN 07/19/20 07/19/20 rifAXIMin [Xifaxan] 550 mg PO BID 07/19/20 07/19/20 traZODone [Desyrel] 50 mg PO HS PRN 07/19/20 07/19/20 Pnv No.95/Ferrous Fum/Folic AC 1 each PO DAILY #30 tablet 07/30/20 [ Tablet] Thiamine HCl [Vitamin B-1] 100 mg PO DAILY #30 tablet 07/30/20 - PHYSICAL EXAM AT DISCHARGE General Appearance: positive: No acute distress, Alert. negative: Lethargic Eyes Bilateral: positive: Normal inspection, PERRL, No lid inflammation ENT: positive: ENT inspection nml, No signs of dehydration. negative: Purulent nasal drainage Neck: positive: Nml inspection, Thyroid nml, Trachea midline. negative: Thyromegaly, Tracheal deviation Respiratory: positive: Chest non-tender, No respiratory distress. negative: Wheezes, Rales, Rhonchi Cardiovascular: positive: Regular rate & rhythm, No murmur. negative: Tachyc ardia, Bradycardia, Systolic murmur, Diastolic murmur Peripheral Pulses: positive: 2+ Abdomen: positive: Non-tender, Nml bowel sounds, No distention. negative: Tenderness, Guarding, Rebound Back: positive: Nml inspection Skin: positive: Color nml, No rash, Warm, Dry. negative: Cyanosis, Diaphoresis, Pallor Extremities: positive: Non-tender, Full ROM, Nml appearance. negative: Calf tenderness Neurologic/Psychiatric: positive: Oriented x3, Motor nml, Sensation nml, Mood/affect nml. negative: Weakness, Sensory loss, Facial droop, Slurred/abnml speech, Depressed mood/affect - LABS Result Diagrams: 07/24/20 05:52 07/24/20 05:52 - SEPSIS Sepsis Criteria: Metabolic: lactate > 2 mmol/L - FOLLOW UP Follow Up: strongly advise you quit alcohol, you state you will quit. For your weakness, you declined to be d/c SNF, advise you be very precaution to fall. You may followup with your PCP in one to two weeks. Should your symptoms return or worsen, you may present ER or call 911 for help. - TIME SPENT Time Spent in Discharge (Minutes): 30
== END 2020-07-30 12:50 | disposition home or self-care (01) | DRG 897 ==
LOC: EDUNIT# → ED 20:29 → MS2 07-19 05:15 → ICU 07-19 23:09 → MS3 07-22 13:46 → ICU 07-22 13:47 → MS2 07-23 15:12
PROVIDERS: ADMIT Internal Medicine; ATTEND Nurse Practitioner Gerontology
DX: F10.232 Alcohol dependence with withdrawal with perceptual disturbance (principal); R65.10 Systemic inflammatory response syndrome (SIRS) of non-infectious origin without acute organ dysfunction; K86.0 Alcohol-induced chronic pancreatitis; E87.2 Acidosis; R45.851 Suicidal ideations; F10.229 Alcohol dependence with intoxication, unspecified; K70.30 Alcoholic cirrhosis of liver without ascites; Y90.8 Blood alcohol level of 240 mg/100 ml or more; K70.40 Alcoholic hepatic failure without coma; I25.10 Atherosclerotic heart disease of native coronary artery without angina pectoris; F43.10 Post-traumatic stress disorder, unspecified; F41.9 Anxiety disorder, unspecified; F32.9 Major depressive disorder, single episode, unspecified; G89.29 Other chronic pain; F17.210 Nicotine dependence, cigarettes, uncomplicated; R51.9 Headache, unspecified; E87.6 Hypokalemia; D69.59 Other secondary thrombocytopenia; M26.629 Arthralgia of temporomandibular joint, unspecified side; R53.1 Weakness; R40.0 Somnolence; T42.4X5A Adverse effect of benzodiazepines, initial encounter; Y92.230 Patient room in hospital as the place of occurrence of the external cause; Z74.09 Other reduced mobility; Z53.29 Procedure and treatment not carried out because of patient's decision for other reasons; Z22.322 Carrier or suspected carrier of Methicillin resistant Staphylococcus aureus; Z74.2 Need for assistance at home and no other household member able to render care; Z91.81 History of falling; Z79.899 Other long term (current) drug therapy; Z86.19 Personal history of other infectious and parasitic diseases; Z95.828 Presence of other vascular implants and grafts; Z86.39 Personal history of other endocrine, nutritional and metabolic disease; I25.2 Old myocardial infarction
CPT/HCPCS: 36415; 70450; 71045; 71275; 74177; 80053; 80306; 80320; 81003; 82009; 82140; 82330; 82803; 83605; 83690; 83735; 83880; 84100; 85025; 85379; 85610; 87040; 87077; 87150; 87635; 93005; 96365; 96366; 96367; 96368; 96375; 97116; 97161; 97165; 97530; 99284; 99285; A6250; A9270; J2060; J3370; J3411; J7120; J8499; Q9967; 80202; 81001; 87086

== ENCOUNTER 2020-10-16 14:26 | Outpatient (CLI) | payer MEDICAID | END 2020-10-16 23:59 | disposition critical access hospital (66) | LOC: EMS 14:26 | DX: R10.9 Unspecified abdominal pain (principal) | CPT/HCPCS: A0425; A0429; A0999 ==

== ENCOUNTER 2020-10-16 14:35 | Emergency (ER) | payer MEDICAID ==
[2020-10-16] MEDS ORDERED: SODIUM CHLORIDE 0.9% 1,000 ML IV STA (14:42)
[2020-10-16] MEDS ORDERED: THIAMINE INJ 100 MG in SODIUM CHLORIDE 0.9% 50 ML IV STA (14:43)
--- NOTE | 2020-10-16 14:44 | ED Physician Documentation ---
PD HPI ABD PAIN - Stated complaint Stated Complaint: COUGH - History obtained from History obtained from: Patient, EMS - Additional information Additional information: This is an unfortunate 60-year-old woman who has significant alcohol problems. She presents by ambulance today for a multitude of complaints including productive cough for several days without shortness of breath, right upper quadrant pain with prior consistent with prior episodes of pancreatitis, and a poorly healing wound on her left great toe. She admits to drinking today. She denies fevers. Review of Systems Ten Systems: 10 systems reviewed and negative Constitutional: denies: Fever, Chills Cardiac: denies: Chest pain / pressure, Palpitations Respiratory: reports: Cough. 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 BUILDER: None : Nocturia HEENT: Chronic sinusitis Psych: Depression, Anxiety, ADD/ADHD, Post traumatic stress disorder Musculoskeletal: Osteoarthritis, Chronic back pain Derm: None - Past Surgical History Past Surgical History: Yes General: Other Ortho: Other /PASSENGER TIRE BUILDER: Tubal ligation, Breast implants HEENT: Other - Present Medications Home Medications: Ambulatory Orders Medication Instructions Recorded Confirmed Multivitamin [Multiple Vitamins] 1 each PO DAILY #10 tablet 09/22/18 07/19/20 Pantoprazole [Protonix] 40 mg PO BID #30 tablet 03/03/19 07/19/20 Furosemide [Lasix] 20 mg PO DAILY #30 tablet 12/07/19 07/19/20 Gabapentin [Neurontin] 400 mg PO QID 07/19/20 07/19/20 Lactulose [Generlac] 30 gm PO DAILY 07/19/20 07/19/20 Lactulose [Generlac] 40 gm PO QPM 07/19/20 07/19/20 Lidocaine Patch 5% [Lidoderm Patch] 1 each TOP DAILY 07/19/20 07/19/20 Lipase/Protease/Amylase [Creon Dr 1 each PO TIDWM 07/19/20 07/19/20 12,000 Units Capsule] Spironolactone [Aldactone] 50 mg PO DAILY 07/19/20 07/19/20 busPIRone [Buspar] 5 mg PO TID 07/19/20 07/19/20 guaiFENesin [Mucinex] 400 mg PO Q6H PRN 07/19/20 07/19/20 hydrOXYzine PAMOATE [Vistaril] 25 - 50 mg PO Q6H PRN 07/19/20 07/19/20 rifAXIMin [Xifaxan] 550 mg PO BID 07/19/20 07/19/20 traZODone [Desyrel] 50 mg PO HS PRN 07/19/20 07/19/20 Pnv No.95/Ferrous Fum/Folic AC 1 each PO DAILY #30 tablet 07/30/20 [ Tablet] Thiamine HCl [Vitamin B-1] 100 mg PO DAILY #30 tablet 07/30/20 - Allergies Allergies/Adverse Reactions: Allergies Allergy/AdvReac Type Severity Reaction Status Date / Time ketorolac tromethamine * Allergy Severe Hives Verified 10/16/20 14:53 [From Toradol] - Social History Does the pt smoke?: Yes Smoking Status: Current every day smoker Does the pt drink ETOH?: Yes Does the pt have substance abuse?: No - Immunizations Immunizations are current?: No Immunizations: TDAP >10years/unknown - POLST Patient has POLST: No POLST Status: Full Code PD ED PE NORMAL - Vitals Vital signs reviewed: Yes - General General: Alert and oriented X 3, Other (Disheveled, slow slurred speech consistent with alcohol intoxication, smells of alcohol.) - HEENT HEENT: PERRL, EOMI (With nystagmus) - Neck Neck: Supple, no meningeal sign, No bony TTP - Cardiac Cardiac: RRR, No murmur - Respiratory Respiratory: No respiratory distress, Clear bilaterally - Abdomen Abdomen: Soft, Non tender - Back Back: No CVA TTP, No spinal TTP - Derm Derm: Normal color, Warm and dry, No rash - Extremities Extremities: Other (There is a small ulcer measuring maybe 1 cm x 8 mm on the medial side of the left great toe with a scab on it. No evidence of infection.) - Neuro Neuro: No motor deficit, No sensory deficit Results - Vitals Vitals: Vital Signs - 24 hr 10/16/20 10/16/20 10/16/20 14:49 17:01 19:00 Temperature 36.6 C 36.8 C Heart Rate 86 79 84 Respiratory 20 18 15 Rate Blood Pressure 128/80 101/62 124/79 O2 Saturation 98 99 97 10/16/20 21:00 Temperature Heart Rate 86 Respiratory 15 Rate Blood Pressure 99/58 L O2 Saturation 100 Oxygen O2 Source Room air - Labs Labs: Laboratory Tests 10/16/20 10/16/20 13:55 13:55 WBC 5.8 RBC 4.24 Hgb 12.5 Hct 38.4 MCV 90.6 MCH 29.5 MCHC 32.6 RDW 25.4 H Plt Count 177 MPV 9.4 Neut # (Auto) 3.4 Lymph # (Auto) 1.6 [place] # (Auto) 0.7 Eos # (Auto) 0.1 Baso # (Auto) 0.1 Absolute Nucleated RBC 0.00 Nucleated RBC % 0.0 WBC Morphology NORMAL APPEARANCE Platelet Estimate NORMAL (130-450,000) Platelet Morphology NORMAL APPEARANCE RBC Morph Micro Appear 1+ POLYCHROMASIA Sodium 140 Potassium 3.3 L Chloride 99 L Carbon Dioxide 23 Anion Gap 18.0 H BUN < 5 L Creatinine 0.4 Estimated GFR (MDRD) 163 Glucose 182 H Calcium 8.6 Phosphorus 1.7 L Magnesium 2.0 Total Bilirubin 3.6 H AST 190 H ALT 53 Alkaline Phosphatase 259 H Total Protein 7.3 Albumin 3.2 Globulin 4.1 Albumin/Globulin Ratio 0.8 L Lipase 118 H Ethyl Alcohol 380.1 - Rads (name of study) 1v chest Radiology: EMP read contemporaneously (NAD) PD MEDICAL DECISION MAKING - ED course ED course: This is a 60-year-old woman who appears quite drunk who presents by ambulance for complaints of cough and abdominal pain. She has a benign exam. A chest x- ray that is normal. Labs are relatively unremarkable with the exception of mild transaminitis related to alcohol-related liver disease and significantly elevated blood alcohol level at 380. She requested pain medication initial evaluation. Toradol was offered and declined due to allergies to same. Of course it is not safe to give her narcotics and her intoxicated state. She was allowed to sober up for several hours. She was reassessed about 2129, stating she had a panic attack. She appeared quite well and was offered hydroxyzine which she took. She requested Ativan which I discussed with her would not be safe given her elevated blood alcohol. Offered to either send her home once clinically sober versus stay in the ER and talk to social work in the morning and she opted for the latter. Departure - Departure Clinical Impression: Cough, LFT elevation Alcohol intoxication Qualifiers: Complication of substance-induced condition: uncomplicated Qualified Code(s): F10.920 - Alcohol use, unspecified with intoxication, uncomplicated Condition: Good Record reviewed to determine appropriate education?: Yes Instructions: ED Alcohol Intoxication Comments: You need to stop drinking. I hope you follow the instruction of the social media marketer and go to detox.
--- NOTE | 2020-10-16 15:47 | XRAY Report ---
PROCEDURE: Chest 1 View X-Ray INDICATIONS: Cough TECHNIQUE: One view of the chest was acquired. COMPARISON: 07/29/2020 FINDINGS: Surgical changes and devices: None. Lungs and pleura: No pleural effusions or pneumothorax. Lungs are clear. Mediastinum: Mediastinal contours appear normal. Heart size is normal. Bones and chest wall: No suspicious bony lesions. Overlying soft tissues appear unremarkable. IMPRESSION: No acute finding. Reviewed by: Zhen Richard MD on 10/16/2020 3:46 PM PST Approved by: Zhen Richard MD on 10/16/2020 3:46 PM PST Station ID: [id number]
[2020-10-16 16:15] LABS: BASOPHILS # (AUTO) 0.1 10^3/uL (0.0-0.1); BASOPHILS % (AUTO) 0.9 %; EOSINOPHILS # (AUTO) 0.1 10^3/uL (0.0-0.7); HGB - HEMOGLOBIN 12.5 g/dL (12.0-16.0); LYMPHOCYTES # (AUTO) 1.6 10^3/uL (1.5-3.5); LYMPHOCYTES % (AUTO) 26.9 %; MEAN CORPUSCULAR HEMOGLOBIN 29.5 pg (27.0-31.0); MEAN CORPUSCULAR HGB CONC 32.6 g/dL (32.0-36.0); MEAN CORPUSCULAR VOLUME 90.6 fL (81.0-99.0); MEAN PLATELET VOLUME 9.4 fL (7.9-10.8); MONOCYTES # (AUTO) 0.7 10^3/uL (0.0-1.0); MONOCYTES % (AUTO) 12.2 %; NEUTROPHILS # (AUTO) 3.4 10^3/uL (1.5-6.6); NEUTROPHILS % (AUTO) 58.7 %; PLT - PLATELET COUNT 177 10^3/uL (130-450); RED BLOOD COUNT 4.24 10^6/uL (4.20-5.40); RED CELL DISTRIBUTION WIDTH 25.4 % (12.0-15.0); WHITE BLOOD COUNT 5.8 x10^3/uL (4.8-10.8)
[2020-10-16 16:35] LABS: ALBUMIN 3.2 g/dL (3.2-5.5); ALBUMIN/GLOBULIN RATIO 0.8 (1.0-2.2); ALKALINE PHOSPHATASE 259 IU/L (42-121); ALT ALANINE AMINOTRANSFERASE 53 IU/L (10-60); AST ASPARTATE AMINOTRANSFERASE 190 IU/L (10-42); BILIRUBIN,TOTAL 3.6 mg/dL (0.2-1.0); BUN - BLOOD UREA NITROGEN < 5 mg/dL (6-20); CALCIUM 8.6 mg/dL (8.5-10.3); CARBON DIOXIDE - CO2 23 mmol/L (21-32); CHLORIDE 99 mmol/L (101-111); CREATININE 0.4 mg/dL (0.4-1.0); GLUCOSE 182 mg/dL (70-100); LIPASE 118 U/L (22-51); PHOSPHORUS 1.7 mg/dL (2.5-4.6); TOTAL PROTEIN 7.3 g/dL (6.7-8.2)
[2020-10-16 16:41] LABS: PLATELET ESTIMATE, MANUAL NORMAL (130-450,000) (NORMAL); PLATELET MORPHOLOGY NORMAL APPEARANCE (NORMAL)
[2020-10-16] MEDS ORDERED: hydrOXYzine PAMOATE 25 MG CAPSULE PO STA (21:20)
[2020-10-16] MEDS ORDERED: THIAMINE 100 MG/1 ML 2 ML MDV ONE (21:34)
[2020-10-17 08:08] VITALS: BP 115/68
[2020-10-17] MEDS ORDERED: hydrOXYzine PAMOATE 25 MG CAPSULE PO STA (08:16)
== END 2020-10-17 09:07 | disposition home or self-care (01) ==
LOC: EDUNIT# → ED 14:35
DX: F10.920 Alcohol use, unspecified with intoxication, uncomplicated (principal); Y90.8 Blood alcohol level of 240 mg/100 ml or more; R74.8 Abnormal levels of other serum enzymes; R05 Cough; K70.9 Alcoholic liver disease, unspecified; L97.529 Non-pressure chronic ulcer of other part of left foot with unspecified severity; F17.200 Nicotine dependence, unspecified, uncomplicated
CPT/HCPCS: 71045; 80053; 80320; 83690; 83735; 84100; 85025; 96365; 96366; 99284; A9270; J3411; J7040

== ENCOUNTER 2020-10-30 11:24 | Outpatient (CLI) | payer MEDICAID ==
[2020-10-30 11:59] LABS: BASOPHILS % (AUTO) 0.8 %; EOSINOPHILS # (AUTO) 0.1 10^3/uL (0.0-0.7); EOSINOPHILS % (AUTO) 1.3 %; HGB - HEMOGLOBIN 12.4 g/dL (12.0-16.0); LYMPHOCYTES # (AUTO) 0.9 10^3/uL (1.5-3.5); LYMPHOCYTES % (AUTO) 19.8 %; MEAN CORPUSCULAR HGB CONC 33.2 g/dL (32.0-36.0); MEAN CORPUSCULAR VOLUME 96.4 fL (81.0-99.0); MEAN PLATELET VOLUME 9.6 fL (7.9-10.8); MONOCYTES # (AUTO) 0.6 10^3/uL (0.0-1.0); MONOCYTES % (AUTO) 11.6 %; NEUTROPHILS # (AUTO) 3.2 10^3/uL (1.5-6.6); NEUTROPHILS % (AUTO) 66.3 %; PLT - PLATELET COUNT 144 10^3/uL (130-450); RED BLOOD COUNT 3.88 10^6/uL (4.20-5.40); RED CELL DISTRIBUTION WIDTH 24.8 % (12.0-15.0); WHITE BLOOD COUNT 4.8 x10^3/uL (4.8-10.8)
[2020-10-30 12:31] LABS: FERRITIN 138.7 ng/mL (11.0-306.8)
[2020-10-30 12:35] LABS: FOLATE 9.46 ng/mL (5.90 - >24.8)
[2020-10-30 14:04] LABS: % IRON SATURATION 59 % (20-50); ALBUMIN 3.1 g/dL (3.2-5.5); ALBUMIN/GLOBULIN RATIO 0.7 (1.0-2.2); ALKALINE PHOSPHATASE 227 IU/L (42-121); ALT ALANINE AMINOTRANSFERASE 42 IU/L (10-60); AMYLASE 145 U/L (28-100); AST ASPARTATE AMINOTRANSFERASE 182 IU/L (10-42); BILIRUBIN,TOTAL 4.1 mg/dL (0.2-1.0); BUN - BLOOD UREA NITROGEN 9 mg/dL (6-20); CALCIUM 8.3 mg/dL (8.5-10.3); CARBON DIOXIDE - CO2 23 mmol/L (21-32); CHLORIDE 100 mmol/L (101-111); CHOL/HDL RATIO 26.2 (<4.4); CHOLESTEROL 340 mg/dL; CREATININE 0.5 mg/dL (0.4-1.0); GLUCOSE 147 mg/dL (70-100); HDL CHOLESTEROL 13 mg/dL; IRON 161 ug/dL (28-170); LDL CHOLESTEROL,CALCULATED 285 mg/dL; LDL/HDL RATIO 21.9 (<4.4); LIPASE 71 U/L (22-51); MAGNESIUM 1.8 mg/dL (1.7-2.8); PHOSPHORUS 2.5 mg/dL (2.5-4.6); TOTAL IRON BINDING CAPACITY 273 ug/dL (250-450); TOTAL PROTEIN 7.3 g/dL (6.7-8.2); TRANSFERRIN 195 mg/dL (192-382); VLDL CHOLESTEROL 42 mg/dL
[2020-10-30 18:45] LABS: FREE T4 (FREE THYROXINE) 1.12 ng/dL (0.58-1.64)
== END 2020-10-30 11:25 | disposition home or self-care (01) ==
LOC: LAB 11:24
PROVIDERS: ATTEND Internal Medicine
DX: D64.9 Anemia, unspecified (principal); F10.20 Alcohol dependence, uncomplicated; K86.1 Other chronic pancreatitis; E04.1 Nontoxic single thyroid nodule; K92.2 Gastrointestinal hemorrhage, unspecified
CPT/HCPCS: 36415; 80053; 80061; 80320; 82150; 82607; 82728; 82746; 83540; 83690; 83721; 83735; 84100; 84439; 84443; 84466; 85025

== ENCOUNTER 2020-11-12 06:59 | Outpatient (CLI) | payer MEDICAID ==
--- NOTE | 2020-11-12 08:27 | Ultrasound Report ---
PROCEDURE: Abdomen Complete INDICATIONS: ELEVATED TRANSAMINASES TECHNIQUE: Real-time scanning was performed of the abdominal and retroperitoneal organs, with image documentatio n. COMPARISON: None. FINDINGS: Liver: Liver is enlarged in size at 20.5 cm craniocaudad and mildly heterogeneous in echotexture and hyperechoic, consistent with hepatic steatosis. Note is made of a TIPS stent within the liver that a ppears patent. No hepatic mass lesion is seen. Gallbladder: The gallbladder appears normal. Biliary ducts: Intrahepatic bile ducts are non-dilated. Extrahepatic bile duct caliber measures 7.2 mm. Normal is 6-7 mm or less in diameter, or 10 mm or less post-cholecystectomy. Pancreas: Visualized portions of the pancreas are sonographically normal. Spleen: Spleen is normal in size and homogeneous in echotexture. Kidneys: Kidneys are normal in size and echotexture. Right kidney measures 13.7 cm long; left kidne y measures 12.7 cm long. No hydronephrosis or nephrolithiasis. No solid masses. Aorta: Visualized aorta is normal in caliber at less than 3 cm. Iliacs: Proximal common iliac arteries are normal in caliber at less than 2.5 cm. IVC: Intrahepatic inferior vena cava is patent. Miscellaneous: No free abdominal fluid. IMPRESSION: Mildly enlarged liver, TIPS stent in the expected position, patent. No hepatic mass lesion seen. Norm al-appearing gallbladder and bile ducts. No hydronephrosis or nephrolithiasis. Reviewed by: Lake Green MD on 11/12/2020 8:25 AM PST Approved by: Lake Green MD on 11/12/2020 8:25 AM PST Station ID: [id number]
[2020-11-12 12:56] LABS: ESTIMATED AVERAGE GLUCOSE 71 mg/dL (70-100); HEMOGLOBIN A1c% 4.1 % (4.27-6.07)
[2020-11-13 10:57] LABS: ALPHA FETOPROTEIN TUMOR MARKER 5.4 ng/mL
[2020-11-13 12:17] LABS: HEPATITIS B CORE AB TOTAL NON-REACTIVE (NON-REACTIVE)
[2020-11-13 12:32] LABS: HEPATITIS C ANTIBODY NON-REACTIVE (NON-REACTIVE)
== END 2020-11-12 07:00 | disposition home or self-care (01) ==
LOC: DI 06:59
PROVIDERS: ATTEND Internal Medicine
DX: R74.01 Elevation of levels of liver transaminase levels (principal); R73.01 Impaired fasting glucose; R16.0 Hepatomegaly, not elsewhere classified
CPT/HCPCS: 36415; 82105; 83036; 86704; 86803; 87350

== ENCOUNTER 2020-12-21 23:25 | Outpatient (CLI) | payer MEDICAID | END 2020-12-21 23:26 | disposition critical access hospital (66) | LOC: EMS 23:25 | DX: R10.9 Unspecified abdominal pain (principal); R07.9 Chest pain, unspecified; R51.9 Headache, unspecified; R06.02 Shortness of breath | CPT/HCPCS: A0425; A0427; A0999 ==

== ENCOUNTER 2020-12-21 23:32 | Observation (INO) | payer MEDICAID ==
--- OUTSIDE RECORDS SUMMARY | 2020-12-22 00:04 | EXTERNAL MEDICAL SUMMARY RPT | Continuity of Care Document ---
:1960 Demographics Phone Unavailable Preferred Language Unknown Marital Status Unknown Sikh Affiliation Unknown Race Unknown Ethnic Group Unknown Author Organization [facility] Address [address] [phone] Phone Social History date description facility [phone]
[2020-12-22 00:13] LABS: BASOPHILS % (AUTO) 0.8 %; EOSINOPHILS % (AUTO) 0.8 %; HGB - HEMOGLOBIN 9.6 g/dL (12.0-16.0); LYMPHOCYTES # (AUTO) 0.4 10^3/uL (1.5-3.5); LYMPHOCYTES % (AUTO) 16.9 %; MEAN CORPUSCULAR HEMOGLOBIN 32.9 pg (27.0-31.0); MEAN CORPUSCULAR HGB CONC 33.1 g/dL (32.0-36.0); MEAN CORPUSCULAR VOLUME 99.3 fL (81.0-99.0); MEAN PLATELET VOLUME 10.6 fL (7.9-10.8); MONOCYTES # (AUTO) 0.3 10^3/uL (0.0-1.0); MONOCYTES % (AUTO) 11.5 %; NEUTROPHILS # (AUTO) 1.8 10^3/uL (1.5-6.6); NEUTROPHILS % (AUTO) 69.2 %; PLT - PLATELET COUNT 49 10^3/uL (130-450); RED BLOOD COUNT 2.92 10^6/uL (4.20-5.40); RED CELL DISTRIBUTION WIDTH 14.8 % (12.0-15.0); WHITE BLOOD COUNT 2.6 x10^3/uL (4.8-10.8)
[2020-12-22] MEDS ORDERED: SODIUM CHLORIDE 0.9% 1,000 ML IV STA ×2 (00:17)
[2020-12-22] MEDS ORDERED: FOLIC ACID INJ 1 MG, THIAMINE INJ 100 MG, MAGNESIUM SULFATE 2 GM, MULTIVITAMIN 10 ML in... IV STA ×5 (00:17)
[2020-12-22 00:21] LABS: ALBUMIN/GLOBULIN RATIO 0.9 (1.0-2.2); BILIRUBIN,TOTAL 5.6 mg/dL (0.2-1.0); CALCIUM 8.1 mg/dL (8.5-10.3); CREATININE 0.5 mg/dL (0.4-1.0); POTASSIUM 3.4 mmol/L (3.5-5.0); TOTAL PROTEIN 6.2 g/dL (6.7-8.2)
[2020-12-22] MEDS ORDERED: FOLIC ACID 5 MG/1 ML 10ML MDV ONE (00:21)
[2020-12-22] MEDS ORDERED: THIAMINE 100 MG/1 ML 2 ML MDV ONE (00:21)
[2020-12-22] MEDS ORDERED: MAGNESIUM SULFATE 1 GM/2 ML VIAL ONE (00:25)
--- NOTE | 2020-12-22 00:31 | ED Physician Documentation ---
PD HPI ABD PAIN - Stated complaint Stated Complaint: SOA/ CP/ ABD PX - Chief complaint Chief Complaint: Abd Pain - History obtained from History obtained from: Patient - History of Present Illness Timing - onset: How many days ago (3) Timing - duration: Days (3) Timing - details: Gradual onset, Still present Quality: Sharp, Stabbing, Pain Location: RUQ Radiation: Chest Improved by: Laying still Worsened by: Eating, Breathing, Position, Palpation Associated symptoms: Nausea, Vomiting, Other (dark stools). No: Fever Similar symptoms before: Diagnosis (pancreatitis) Recently seen: Not recently seen - Additional information Additional information: 60-year-old female with severe alcoholism and end-stage liver disease has had a TIPS procedure done previously she is no longer having an issue with ascites and pleural effusions but she continues to have issues with pancreatitis recurring. She has had a problem with continued alcohol use and denies any use since her prior visit to the emergency department. On initial history this seems unlikely. She is complaining of pain to the right upper quadrant similar to what she has had with pancreatitis previously and she is complaining of difficulty with a deep breath. She has not had followup since before her last admission in July of 2020. She is not immunized. Review of Systems Constitutional: reports: Fatigue. denies: Fever Eyes: denies: Decreased vision Ears: denies: Ear pain Nose: denies: Rhinorrhea / runny nose, Congestion Throat: denies: Sore throat Cardiac: reports: Chest pain / pressure. denies: Palpitations, Pedal edema, Calf pain Respiratory: reports: Dyspnea, Cough GI: reports: Abdominal Pain, Nausea, Bloody / black stool : denies: Dysuria, Frequency Skin: reports: Other (bruising). denies: Rash Musculoskeletal: reports: Back pain. denies: Neck pain, Extremity swelling Neurologic: denies: Generalized weakness, Focal weakness, Numbness Psychiatric: reports: Depressed PD PAST MEDICAL HISTORY - Past Medical History Past Medical History: Yes Cardiovascular: Coronary artery disease, PA, Murmur Respiratory: Shortness of breath Neuro: Headaches, Migraines, Tremors Endocrine/Autoimmune: None GI: GERD, Pancreatitis, Hepatitis, Cirrhosis, Cholelithiasis, Other BRAILLE TYPIST: None : Nocturia HEENT: Chronic sinusitis Psych: Depression, Anxiety, ADD/ADHD, Post traumatic stress disorder Musculoskeletal: Osteoarthritis, Chronic back pain Derm: None - Past Surgical History Past Surgical History: Yes General: Other Ortho: Other /BRAILLE TYPIST: Tubal ligation, Breast implants HEENT: Other - Present Medications Home Medications: Ambulatory Orders Medication Instructions Recorded Confirmed Multivitamin [Multiple Vitamins] 1 each PO DAILY #10 tablet 09/22/18 10/17/20 Pantoprazole [Protonix] 40 mg PO BID #30 tablet 03/03/19 10/17/20 Furosemide [Lasix] 20 mg PO DAILY #30 tablet 12/07/19 10/17/20 Gabapentin [Neurontin] 400 mg PO QID 07/19/20 10/17/20 Lactulose [Generlac] 30 gm PO DAILY 07/19/20 10/17/20 Lactulose [Generlac] 40 gm PO QPM 07/19/20 10/17/20 Lidocaine Patch 5% [Lidoderm Patch] 1 each TOP DAILY 07/19/20 10/17/20 Lipase/Protease/Amylase [Creon Dr 1 each PO TIDWM 07/19/20 10/17/20 12,000 Units Capsule] Spironolactone [Aldactone] 50 mg PO DAILY 07/19/20 10/17/20 busPIRone [Buspar] 5 mg PO TID 07/19/20 10/17/20 guaiFENesin [Mucinex] 400 mg PO Q6H PRN 07/19/20 10/17/20 hydrOXYzine PAMOATE [Vistaril] 25 - 50 mg PO Q6H PRN 07/19/20 10/17/20 rifAXIMin [Xifaxan] 550 mg PO BID 07/19/20 10/17/20 traZODone [Desyrel] 50 mg PO HS PRN 07/19/20 10/17/20 Pnv No.95/Ferrous Fum/Folic AC 1 each PO DAILY #30 tablet 07/30/20 10/17/20 [ Tablet] Thiamine HCl [Vitamin B-1] 100 mg PO DAILY #30 tablet 07/30/20 10/17/20 - Allergies Allergies/Adverse Reactions: Allergies Allergy/AdvReac Type Severity Reaction Status Date / Time ketorolac tromethamine * Allergy Severe Hives Verified 12/21/20 23:50 [From Toradol] - Social History Does the pt smoke?: Yes Smoking Status: Current every day smoker Does the pt drink ETOH?: Yes Does the pt have substance abuse?: No - Immunizations Immunizations are current?: No Immunizations: TDAP >10years/unknown - POLST Patient has POLST: No POLST Status: Full Code PD ED PE NORMAL - Vitals Vital signs reviewed: Yes - General General: Alert and oriented X 3, Well developed/nourished, Other (whinning on history with complaints of pain. Obvious stigmata of liver disease with telange ctasia and mulitple bruises. ) - HEENT HEENT: Atraumatic, PERRL, EOMI - Neck Neck: Supple, no meningeal sign, No bony TTP - Cardiac Cardiac: No murmur, Other (tachy ) - Respiratory Respiratory: No respiratory distress, Clear bilaterally - Abdomen Abdomen: Soft, Other (general tenderness and RUQ tenderness to palpation. mild distention. bruise to the right costal margin laterally. ) - Rectal Rectal: Other (with Lexus as table top tile setter the rectal tone is shauna there is dark stool present sent for FIT. (+)) - Back Back: No CVA TTP, No spinal TTP - Derm Derm: Normal color, Warm and dry, Other (Telangiectasia are present on the chest wall and extremities as well as bruising of multiple ages 1 to the right shoulder 1 to the right costal margin are obvious evident) - Extremities Extremities: No deformity, No edema - Neuro Neuro: labview programmer 2-12 intact, No motor deficit, No sensory deficit, Normal speech Eye Opening: Spontaneous Motor: Obeys Commands Verbal: Oriented GCS Score: 15 - Psych Psych: Other (Mood is whiny and the affect is sad) Results - Vitals Vitals: Vital Signs - 24 hr 12/21/20 12/22/20 12/22/20 23:32 00:03 00:48 Temperature 37.1 C Heart Rate 103 H 94 93 Respiratory 20 18 17 Rate Blood Pressure 124/66 103/53 L 103/52 L O2 Saturation 100 100 100 12/22/20 01:33 Temperature Heart Rate 99 Respiratory 20 Rate Blood Pressure 100/53 L O2 Saturation 100 Oxygen O2 Source Room air - EKG (time done) 2341 Rate: Rate (enter#) (95) Rhythm: NSR Herman: LAD Intervals: RBBB (incomplete) Ischemia: Normal ST segments Compare to prior EKG: Unchanged from prior EKG (SPT 07-18-2020 the rate has slowed. ) Computer interpretation: Agree with computer - Labs Labs: Microbiology 12/22/20 01:05 Occult Blood - Final Stool Laboratory Tests 12/22/20 12/22/20 12/22/20 00:00 00:00 00:00 WBC 2.6 L RBC 2.92 L Hgb 9.6 L Hct 29.0 L MCV 99.3 H MCH 32.9 H MCHC 33.1 RDW 14.8 Plt Count 49 L MPV 10.6 Neut # (Auto) 1.8 Lymph # (Auto) 0.4 L [place]yer # (Auto) 0.3 Eos # (Auto) 0.0 Baso # (Auto) 0.0 Absolute Nucleated RBC 0.00 Nucleated RBC % 0.0 PT INR Sodium 123 L Potassium 3.4 L Chloride 85 L Carbon Dioxide 22 Anion Gap 16.0 H BUN 9 Creatinine 0.5 Estimated GFR (MDRD) 126 Glucose 110 H Calcium 8.1 L Total Bilirubin 5.6 H AST 181 H ALT 45 Alkaline Phosphatase 175 H Total Protein 6.2 L Albumin 3.0 L Globulin 3.2 Albumin/Globulin Ratio 0.9 L Lipase 149 H Nasal Adenovirus (PCR) Nasal B. parapertussis DNA (PCR) Nasal Coronavir 229E PCR Nasal Coronavir HKU1 PCR Nasal Coronavir NL63 PCR Nasal Coronavir OC43 PCR Nasal Enterovir/Rhinovir PCR Nasal Influenza B PCR Nasal Influenza A PCR Nasal Parainfluen 1 PCR Nasal Parainfluen 2 PCR Nasal Parainfluen 3 PCR Nasal Parainfluen 4 PCR Nasal RSV (PCR) Nasal B.pertussis DNA PCR Nasal C.pneumoniae (PCR) Maurice Human Metapneumo PCR Nasal M.pneumoniae (PCR) Nasal SARS-CoV-2 (PCR) Ethyl Alcohol < 5.0 12/22/20 12/22/20 00:39 01:30 WBC RBC Hgb Hct MCV MCH MCHC RDW Plt Count MPV Neut # (Auto) Lymph # (Auto) [place]yer # (Auto) Eos # (Auto) Baso # (Auto) Absolute Nucleated RBC Nucleated RBC % PT 21.5 H INR 2.0 H Sodium Potassium Chloride Carbon Dioxide Anion Gap BUN Creatinine Estimated GFR (MDRD) Glucose Calcium Total Bilirubin AST ALT Alkaline Phosphatase Total Protein Albumin Globulin Albumin/Globulin Ratio Lipase Nasal Adenovirus (PCR) NOT DETECTED Nasal B. parapertussis DNA (PCR) NOT DETECTED Nasal Coronavir 229E PCR NOT DETECTED Nasal Coronavir HKU1 PCR NOT DETECTED Nasal Coronavir NL63 PCR NOT DETECTED Nasal Coronavir OC43 PCR NOT DETECTED Nasal Enterovir/Rhinovir PCR NOT DETECTED Nasal Influenza B PCR NOT DETECTED Nasal Influenza A PCR NOT DETECTED Nasal Parainfluen 1 PCR NOT DETECTED Nasal Parainfluen 2 PCR NOT DETECTED Nasal Parainfluen 3 PCR NOT DETECTED Nasal Parainfluen 4 PCR NOT DETECTED Nasal RSV (PCR) NOT DETECTED Nasal B.pertussis DNA PCR NOT DETECTED Nasal C.pneumoniae (PCR) NOT DETECTED Maurice Human Metapneumo PCR NOT DETECTED Nasal M.pneumoniae (PCR) NOT DETECTED Nasal SARS-CoV-2 (PCR) NOT DETECTED Ethyl Alcohol - Rads (name of study) CT ab/pel with Radiology: Prelim report reviewed (Pression: 1. No acute findings.), Final report received (Final report there are references to prior abnormalities none of them appear changed. The TIPS stent appears patent.), EMP read indepedently, See rad report Procedures - IVC sono (time) 2350 Bedside IVC sono: IVC measures (cm) (unable) PD MEDICAL DECISION MAKING - ED course Complexity details: reviewed old records, reviewed results, re-evaluated patient, considered differential, d/w patient ED course: 60-year-old female with excessive alcohol use and cirrhosis s/p TIPS procedure and she has come to the emergency department this evening with right upper quadrant pain and she indicates that she has not had anything to eat or drink for the past 3 days has not taken any of her medications. She is complaining of dark tarry stool and weakness as well as difficulty breathing because of the right upper quadrant pain. The patient is hydrated with saline and a banana bag she is administered 10 mg o f dexamethasone and Protonix intravenously as well as 10 mg of vitamin K orally. She has an INR of 2.0 she has multiple bruises and she has rectal bleeding. She has dropped her hematocrit from 37.46 weeks ago to 29 today. Hemoglobin today is at 9.6 dropped from 12.4. The case is discussed with the massage operator and she graciously agrees to admit the patient to observation. Departure - Departure Disposition: ED Place in Observation Clinical Impression: Right upper quadrant abdominal pain Acute pancreatitis Qualifiers: Pancreatitis type: alcohol induced Acute pancreatitis complication: no infection or necrosis Qualified Code(s): K85.20 - Alcohol induced acute pancreatitis without necrosis or infection GI bleed Qualifiers: GI bleed type/associated pathology: melena Qualified Code(s): K92.1 - Melena
[2020-12-22] MEDS ORDERED: IOPAMIDOL-300 100 ML VIAL ONE (00:39)
[2020-12-22] MEDS ORDERED: DEXAMETHASONE 10 MG/ML VIAL IVP STA (00:47)
[2020-12-22] MEDS ORDERED: IOPAMIDOL-300 100 ML VIAL IVP ONE (01:24)
[2020-12-22 01:32] LABS: B. PARAPERTUSSIS- RESP PCR PAN NOT DETECTED; B. PERTUSSIS- RESP PCR PANEL NOT DETECTED; C. PNEUMONIAE- RESP PCR PANEL NOT DETECTED; CORONAVIRUS 229E-RESP PCR NOT DETECTED; CORONAVIRUS HKU1-RESP PCR NOT DETECTED; CORONAVIRUS NL63-RESP PCR NOT DETECTED; CORONAVIRUS OC43-RESP PCR NOT DETECTED; HUMAN METAPNEUMOVIRUS NOT DETECTED; INFLUENZA A- RESP PCR PANEL NOT DETECTED; INFLUENZA B - RESP PCR PANEL NOT DETECTED; M. PNEUMONIAE- RESP PCR PANEL NOT DETECTED; PARAINFLUENZA VIRUS 1 NOT DETECTED; PARAINFLUENZA VIRUS 2 NOT DETECTED; PARAINFLUENZA VIRUS 3 NOT DETECTED; PARAINFLUENZA VIRUS 4 NOT DETECTED; RHINOVIRUS/ENTEROVIRUS NOT DETECTED; RSV- RESP PCR PANEL NOT DETECTED; SARS-CoV-2 -RESP PCR PANEL NOT DETECTED
[2020-12-22 01:38] LABS: PT - PROTHROMBIN TIME 21.5 secs (9.9-12.6)
[2020-12-22] MEDS ORDERED: PANTOPRAZOLE 40 MG VIAL IVP STA (01:45)
[2020-12-22] MEDS ORDERED: PHYTONADIONE 10 MG/ML AMP PO ONE (01:45)
[2020-12-22] MEDS ORDERED: CHERRY SYRUP 10 ML UDC PO ONE (01:45)
[2020-12-22] MEDS ORDERED: ONDANSETRON 4 MG/2 ML VIAL IVP PRN (02:53)
[2020-12-22] MEDS ORDERED: NICOTINE 14 MG PATCH TOP STA (03:08)
--- OUTSIDE RECORDS SUMMARY | 2020-12-22 03:31 | EXTERNAL MEDICAL SUMMARY RPT | Continuity of Care Document ---
:1960 Demographics Phone Unavailable Preferred Language Unknown Marital Status Unknown Yarsani Affiliation Unknown Race Unknown Ethnic Group Unknown Author Organization [facility] Address [address] [phone] Phone Social History date description facility [phone]
[2020-12-22] MEDS ORDERED: LORazepam 2 MG/ML VIAL IVP STA (03:32)
[2020-12-22] MEDS ORDERED: D5NS W/20 MEQ KCL 1,000 ML IV SCH (04:00)
[2020-12-22] MEDS: HYDROmorphone 0.5 MG/0.5 ML SYRINGE IVP PRN ×5 (04:27→17:15)
[2020-12-22] MEDS: SODIUM CHLORIDE FLUSH 0.9% 10 ML SYRINGE IVP PRN ×2 (04:27→05:56)
--- NOTE | 2020-12-22 04:58 | HISTORY & PHYSICAL EXAMINATION ---
DATE OF SERVICE: 12/22/2020 Physician: Yeni Altamirano MD HISTORY OF PRESENT ILLNESS: This is a 60-year-old, white female with a longstanding history of alcohol abuse, had ascites and pleural effusions that now have been stabilized by having a TIPS procedure; and she takes lactulose, spironolactone and Lasix. She also has a history of recurrent pancreatitis, alcoholic hepatitis, depression, prior MRSA. She states she stopped alcohol intake and smoking 2 mos ago. The patient presents with 3 days of abdominal pain, which is mostly in the right upper quadrant, where she has had symptoms like this when she gets pancreatitis. It was too painful to go down a flight of stairs to take her meds, as such she has had no meds for 2 days. She presented to the ER with this complaint of pain, and a CT of the abdomen was done that showed no pancreatic stranding or ascites or pseudocyst, and her TIPS stent is patent. She also reported black stool for several days and a rectal exam was done in the ER, chaperoned, and the guaiac test is strongly positive. The patient is being placed on Observation status for monitoring of her hemoglobin and treating empirically for an ulcer, also for pain management and to give IV fluids, because of marked hyponatremia with sodium of 123. PAST MEDICAL HISTORY: Alcohol abuse but she claims no alcohol intake for 2 months, alcoholic cirrhosis, recurrent pancreatitis, depression, CAD, has TIPS stent in the liver, prior MRSA. The patient was last here in July 2020 with alcohol withdrawal, required 11 days of hospitalization. Inpatient detoxification was advised, but she refused it. ALLERGIES: KETOROLAC, WHICH GAVE HER HIVES. MEDICATIONS 1. Lasix 20 mg daily. 2. Spironolactone 50 mg daily. 3. Gabapentin 400 mg q.i.d. 4. Mucinex p.r.n. 5. Vistaril p.r.n. 6. Lactulose 30 mg in the morning and 40 mg at night. 7. Creon 1 tablet t.i.d. with meals. 8. Multivitamin daily. 9. Thiamine 100 mg daily. 10. Protonix 40 mg b.i.d. 11. vitamin daily. 12. Desyrel at bedtime p.r.n. 13. BuSpar 5 mg daily. 14. Lidocaine patch topically. 15. Rifaximin 550 mg daily. SOCIAL HISTORY: The patient used to drink up to a box of wine a day. She was a smoker of a pack of cigarettes daily. There is no illicit drug use history. FAMILY HISTORY: Unknown. REVIEW OF SYSTEMS: She thinks she had a fever today. Her abdominal pain in the right upper quadrant is also pleuritic and positional. It is the similar kind of pain she gets when she gets her pancreatitis. She denies nausea , vomiting or diarrhea. She denies shortness of breath. A comprehensive review of systems was performed and the pertinent positives are listed, the rest are negative. PHYSICAL EXAMINATION GENERAL: Icteric, white female. VITAL SIGNS: Blood pressure 103/53. Heart rate 94, in sinus rhythm, but was as high as 103 in sinus rhythm at presentation. Oxygen saturation 100% on room air. HEENT: Reveals icterus of the sclerae. There is no nystagmus. Oral mucosa is dry. Dentition is fair. NECK: No JVD. CHEST: Clear. CARDIOVASCULAR: Normal heart sounds. ABDOMEN: Soft. Diminished bowel sounds. Tender to palpation in the right upper quadrant. No guarding or rebound. Possible hepatomegaly. No fluid wave. EXTREMITIES: Multiple telangiectasias and bruises in different locations. There is no clubbing, cyanosis or edema. NEUROLOGIC: No nystagmus. No liver flap. Motor exam is grossly normal. Speech is normal. Mood and affect are normal. LABORATORY DATA: Sodium 123, potassium 3.4, BUN 9, creatinine 0.5, bilirubin 5.6, AST 181, ALT 45, alkaline phosphatase 175. Albumin low at 3, lipase elevated at 149. INR elevated at 2.0. White blood count 2.6, hemoglobin 9.6, with MCV of 99 and platelet count low at 49. Respiratory panel was negative for COVID and other entities. Her serum alcohol level was not measurable. No urine has been obtained for urinalysis. EKG: Normal sinus rhythm, left anterior fascicular block, RSR prime in V1. It is similar to her EKG from July 2020. IMAGING: CT of the abdomen showed clear bases of both lungs, her TIPS stent is widely patent and there is a left renal stone that is nonobstructing. All other findings are normal. No ascites, no bowel obstruction. IMPRESSION/DIAGNOSES 1. Abdominal pain, likely her pancreatitis by description, but possibly from gastritis or peptic ulcer disease. 2. Pleuritic chest pain, which is likely inflammatory from diaphragmatic inflammation from the pancreas. 3. Alcohol abuse, longstanding but recently stopped per her report. 4. Melena. 5. Pancreatitis. 6. Transaminitis. 7. Pancytopenia. 8. Elevated INR. 9. Hyponatremia. 10. Hypokalemia. 11. History of coronary artery disease. 12. History of depression. PLAN: Obtain an ammonia level, and check a urinalysis. Place the patient in Observation. Follow a [facility] protocol with p.r.n. IV Ativan in case of alcohol withdrawal. Continue her dose of Lactulose and her Xifaxan, her thiamine and multivitamin treatments. Check a magnesium level. Order n.p.o. for diet except medications to swallow, and she may have chips and sips of water or clear liquids if they do not cause abdominal pain. Hold the CReon until she is on a diet. Begin IV Protonix 40 mg IV b.i.d. Obtain general surgery consult for EGD. Trend her hemoglobin and her entire CBC every 12 hours. Type and cross in case she needs a transfusion, if hemoglobin drops below 7 or 8. She received vitamin K in the ER for the elevated INR in a patient with melena. Monitor her INR daily. She received 1 liter of saline in the ER and was started on a banana bag and we will then continue fluids of D5 NS with potassium replacement at a moderate rate, but we will hold her Lasix and Spironolactone. Monitor her serum sodium and correct this slowly. Continue with her Gabapentin, BuSpar and lidocaine patch, but also will give p.r.n. IV pain medications and iv antiemetics p.r.n. Get a nasal swab regarding her current MRSA status. No chest x-ray will be ordered because CT of the abdomen revealed no pathology in her lung bases. DEEP VENOUS THROMBOSIS PROPHYLAXIS: SCDs. CODE STATUS: FULL CODE. ATTESTATION: The patient is expected to be discharged or transferred to another facility within 96 hours: Yes. cc: Adam Negro MD TD: 12/22/2020 04:47 [facility]ama[facility]
[2020-12-22 06:29] LABS: HCT - HEMATOCRIT 26.7 % (37.0-47.0); HGB - HEMOGLOBIN 9.3 g/dL (12.0-16.0); LYMPHOCYTES # (AUTO) 0.2 10^3/uL (1.5-3.5); LYMPHOCYTES % (AUTO) 8.8 %; MEAN CORPUSCULAR HEMOGLOBIN 33.3 pg (27.0-31.0); MEAN CORPUSCULAR HGB CONC 34.8 g/dL (32.0-36.0); MEAN CORPUSCULAR VOLUME 95.7 fL (81.0-99.0); MEAN PLATELET VOLUME 10.7 fL (7.9-10.8); MONOCYTES # (AUTO) 0.1 10^3/uL (0.0-1.0); MONOCYTES % (AUTO) 2.5 %; NEUTROPHILS # (AUTO) 1.8 10^3/uL (1.5-6.6); NEUTROPHILS % (AUTO) 87.7 %; PLT - PLATELET COUNT 46 10^3/uL (130-450); RED BLOOD COUNT 2.79 10^6/uL (4.20-5.40); RED CELL DISTRIBUTION WIDTH 14.3 % (12.0-15.0)
[2020-12-22 06:37] LABS: INR 1.8 (0.8-1.2); PT - PROTHROMBIN TIME 19.8 secs (9.9-12.6)
[2020-12-22 06:38] LABS: ALBUMIN/GLOBULIN RATIO 0.9 (1.0-2.2); BILIRUBIN,TOTAL 5.7 mg/dL (0.2-1.0); CALCIUM 7.6 mg/dL (8.5-10.3); CREATININE 0.5 mg/dL (0.4-1.0); MAGNESIUM 2.5 mg/dL (1.7-2.8); POTASSIUM 3.3 mmol/L (3.5-5.0); TOTAL PROTEIN 6.2 g/dL (6.7-8.2)
[2020-12-22 06:42] LABS: SLIDE REVIEW? Indicated
[2020-12-22] MEDS: busPIRone 5 MG TABLET PO SCH ×2 (07:11→14:08)
[2020-12-22] MEDS: GABAPENTIN 300 MG CAPSULE PO SCH ×2 (07:11→14:08)
--- NOTE | 2020-12-22 07:59 | CT Report ---
PROCEDURE: Abdomen/Pelvis W INDICATIONS: RUQ pain sharp stabbing CONTRAST: IV CONTRAST: Isovue 300 ml: 100 PO CONTRAST: *NO PO CONTRAST TECHNIQUE: After the administration of intermediate contrast, 5 mm thick sections acquired from the diaphragms t o the symphysis. 5 mm thick coronal and sagittal reformats were acquired. For radiation dose reduct ion, the following was used: automated exposure control, adjustment of mA and/or kV according to pat ient size. COMPARISON: CT abdomen and pelvis with contrast, 10/10/2019, 07/19/2020, 12/11/2018 and 02/08/2018. CT angiogram chest with and without contrast, 07/18/2020. FINDINGS: Image quality: Excellent. ABDOMEN: Lung bases: There is an 8 mm nodule in the right lung base (series 4 [id number]). Lung bases are oth erwise clear. Heart size is normal. Bilateral breast implants. Small hiatal hernia. Solid organs: Nodular contour liver consistent with cirrhosis. Liver is prominent in size. Liver dem onstrates heterogeneous, diffusely decreased attenuation. Spleen is normal in size and enhancement. Gallbladder is normal. There is TIPS in liver.Biliary system is non dilated. Pancreas enhances norm ally. No adrenal nodules. Kidneys demonstrate normal size and enhancement, without hydronephrosis. There is a 4 mm stone in the inferior pole of left kidney. Peritoneum and bowel: Bowel loops demonstrate normal wall thickness and caliber. No free fluid or a ir. Nodes and vessels: No retroperitoneal or mesenteric adenopathy by size criteria. Aorta and inferior vena cava are normal in size. Miscellaneous: No ventral hernias. PELVIS: Genitourinary: Uterus and ovaries are normal. No adnexal mass. No free fluid in pelvis. Bladder wall thickness is normal. Miscellaneous: No inguinal hernias or adenopathy. Bones: No suspicious bony lesions. No vertebral body compression fractures. Mild scoliosis. Degene rative disease in lumbar spine. IMPRESSION: 1. No acute abnormalities in abdomen or pelvis. 2. Cirrhosis of liver with a TIPS. There is hepatic steatosis.. 3. A 4 mm nonobstructive stone in the inferior pole of the left kidney. 4. An 8 mm lung nodule in the right lung base. Please see enclosed follow-up recommendation. No significant change with the preliminary interpretation. Fleischner Society criteria for SOLID lung nodule followup. Nodule size (mm) Low-risk patient High-risk patient ?4 No follow-up needed Follow-up at 12 mo; if no change, no further follow-up >4-[address] at 12 mo; if no change, no further follow-up needed. Initial follow-up CT at 6-12 mo, then 18-24 mo if no change. >6-8 Initial follow-up CT at 6-12 mo, then 18-24 mo if no change. Initial follow-up CT at 3-6 mo, then 9-12 mo and 24 mo if no change. >8 Follow-[address] at 3, 9, 24 mo. Or PET and/or biopsy. Same as for low-risk pts. Reviewed by: Rima Galvan MD on 12/22/2020 7:58 AM PDT Approved by: Rima Galvan MD on 12/22/2020 7:58 AM PDT Station ID: [id number]
[2020-12-22] MEDS ORDERED: PRENATAL VITAMIN TABLET PO SCH (08:00)
[2020-12-22 08:21] LABS: DIFFERENTIAL COMMENT MANUAL=AUTO DIFF; PLATELET ESTIMATE, MANUAL DECREASED (<130,000) (NORMAL); PLATELET MORPHOLOGY NORMAL APPEARANCE (NORMAL); RBC MORPHOLOGY (MULTIPLE) 1+ HYPOCHROMASIA (NORMAL); WBC MORPHOLOGY (MULTIPLE) NORMAL APPEARANCE (NORMAL)
[2020-12-22] MEDS ORDERED: SERTRALINE 50 MG TABLET PO SCH (09:00)
[2020-12-22] MEDS ORDERED: LACTULOSE 10 GM /15 ML UDC PO SCH (09:00)
[2020-12-22] MEDS ORDERED: rifAXIMin 550 MG TABLET PO SCH (09:00)
[2020-12-22] MEDS ORDERED: PANTOPRAZOLE 40 MG VIAL IV SCH (09:00)
[2020-12-22] MEDS ORDERED: THIAMINE 100 MG TABLET PO SCH (09:00)
[2020-12-22] MEDS ORDERED: ethyl alcohoL 62% SWAB AMPULE NAS SCH (09:00)
[2020-12-22] MEDS ORDERED: LIDOCAINE PATCH 5% TOP SCH (09:00)
[2020-12-22] MEDS: LORazepam 2 MG/ML VIAL IVP PRN ×2 (09:02→16:36)
[2020-12-22] MEDS: SODIUM CHLORIDE FLUSH 0.9% 10 ML SYRINGE IVP SCH ×2 (09:03→16:17)
--- NOTE | 2020-12-22 10:25 | PHARMACY PROGRESS NOTE ---
- Best Possible Medication History Admit Date and Time: 12/22/20 0253 Processed by: Nursing Medication History completed: Yes Secondary Source(s): Pharmacy records, Insurance records As the person ultimately responsible for medication therapy, providers are able to order a medication from an existing home medication list in [facility] via the "Reconcile Routine" prior to Confirmation of that medication by manager client support. Such practice is discouraged except when the physician, in their clinical judgment, deems that a medical need exists for a medication without regard to previous use.
[2020-12-22 11:12] LABS: HCT - HEMATOCRIT 27.2 % (37.0-47.0); HGB - HEMOGLOBIN 9.4 g/dL (12.0-16.0)
[2020-12-22 11:20] LABS: CALCIUM 8.1 mg/dL (8.5-10.3); CREATININE 0.5 mg/dL (0.4-1.0)
[2020-12-22] MEDS ORDERED: POTASSIUM CHLORIDE 20 MEQ TABLET PO ONE (12:11)
[2020-12-22 12:27] LABS: GLUCOSE, URINE (UA) NEGATIVE (NEGATIVE); KETONES,URINE (UA) 15 mg/dL (NEGATIVE); LEUKOCYTE ESTERASE, URINE NEGATIVE (NEGATIVE); NITRITE,URINE NEGATIVE (NEGATIVE); OCCULT BLOOD,URINE LARGE (NEGATIVE); PROTEIN,URINE NEGATIVE (NEGATIVE); UROBILINOGEN,URINE 1 (NORMAL) E.U./dL (NORMAL)
[2020-12-22 12:30] LABS: BILIRUBIN,URINE SMALL (NEGATIVE); CLARITY,URINE CLEAR (CLEAR); ICTOTEST,URINE POSITIVE
[2020-12-22 12:40] LABS: BACTERIA,URINE Rare /HPF (None Seen); SQUAMOUS EPITHELIAL CELL,UR FEW Squamous (<= Few); WBC,URINE 0-3 /HPF (0-5)
[2020-12-22] MEDS: POTASSIUM CHLOR 10 MEQ/100 ML 10 MEQ/100 ML BAG IV SCH ×4 (12:53→16:17)
--- NOTE | 2020-12-22 17:29 | DISCHARGE SUMMARY ---
Discharge Summary Admit Date: 12/22/20 Discharge Date: 12/22/20 Discharging Provider: Jared Bhatti Primary Care Provider: Adam Negro Code Status: Attempt Resuscitation Condition at Discharge: Stable Discharge Disposition: 02 Transfer Acute Care Hosp Discharge [facility] Name: [facility] - DIAGNOSES Admission Diagnoses: Abdominal pain Pleuritic chest pain Alcohol abuse Melena Pancreatitis Transaminitis Pancytopenia Elevated INR Hyponatremia Hypokalemia History of coronary artery disease Depression Discharge Diagnoses with Status of Each Condition: Abdominal pain Pleuritic chest pain Alcohol abuse Melena Pancreatitis Transaminitis Pancytopenia Elevated INR Hyponatremia Hypokalemia History of coronary artery disease Depression - HPI History of Present Illness: 60-year-old female with longstanding history of alcohol abuse, ascites and pleural effusion that now has been stabilized by having a TIPS procedure. She is on lactulose, spironolactone and Lasix. She has history of recurrent pancreatitis alcohol hepatitis, depression, prior MRSA. She states that she stopped drinking alcohol and smoking 2 months ago. She presented with 3 days of abdominal pain which is mostly in the right upper quadrant with she has had symptoms like this when she gets pancreatitis. It was too painful to go down a flight of stairs to take her meds as such she has not had her medications in [address] abdomen done in the ED showed no pancreatic Stranding or ascites or pseudocyst and had TIPS stent is patent. She also reported black stools for several days and the rectal exam was done in the ER. She was guaiac positive. She was placed on observation status for monitoring of her hemoglobin and treating empirically for an ulcer. Also pain management and IV hydration because of marked hyponatremia with a sodium level of 123. Further review of her chart, her hemoglobin was 12.4 on 10/30/2020. The day of admission which was improved 08/31/2021 it was 9.4. WBC 2.0, platelet 46. INR 2.0. She is not on any anticoagulant. Sodium 123 potassium 3.4 AST 181 ALT 45 alk phos 175 anion gap 16 total bilirubin 5.6 Albumin 3.0. I reached out to general surgery about possible EGD. However due to the patient's significant medical history and current liver failure Was advised that the patient be transferred to another facility for higher level of care. The patient's TIPS procedure was done in [place] about 2 months ago. I reached out to the hospitalist team who were agreeable to take the patient onto their service if gastroenterology was willing to do a consult and EGD. GI agreed to an EGD. Consequently the patient was transferred to [facility]. - ALLERGIES Allergies/Adverse Reactions: Allergies Allergy/AdvReac Type Severity Reaction Status Date / Time ketorolac tromethamine * Allergy Severe Hives Verified 12/21/20 23:50 [From Toradol] - MEDICATIONS Home Medications: Ambulatory Orders Medication Instructions Recorded Confirmed Multivitamin [Multiple Vitamins] 1 each PO DAILY #10 tablet 09/22/18 12/22/20 Pantoprazole [Protonix] 40 mg PO BID #30 tablet 03/03/19 12/22/20 Furosemide [Lasix] 20 mg PO DAILY #30 tablet 12/07/19 12/22/20 Gabapentin [Neurontin] 400 mg PO QID 07/19/20 12/22/20 Lactulose [Generlac] 30 gm PO DAILY 07/19/20 12/22/20 Lactulose [Generlac] 40 gm PO QPM 07/19/20 12/22/20 Lidocaine Patch 5% [Lidoderm Patch] 1 each TOP DAILY 07/19/20 12/22/20 Lipase/Protease/Amylase [Creon Dr 1 each PO TIDWM 07/19/20 12/22/20 12,000 Units Capsule] Spironolactone [Aldactone] 50 mg PO DAILY 07/19/20 12/22/20 busPIRone [Buspar] 5 mg PO TID 07/19/20 12/22/20 guaiFENesin [Mucinex] 400 mg PO Q6H PRN 07/19/20 12/22/20 hydrOXYzine PAMOATE [Vistaril] 25 - 50 mg PO Q6H PRN 07/19/20 12/22/20 rifAXIMin [Xifaxan] 550 mg PO BID 07/19/20 12/22/20 traZODone [Desyrel] 50 mg PO HS PRN 07/19/20 12/22/20 Pnv No.95/Ferrous Fum/Folic AC 1 each PO DAILY #30 tablet 07/30/20 12/22/20 [ Tablet] Thiamine HCl [Vitamin B-1] 100 mg PO DAILY #30 tablet 07/30/20 12/22/20 - PHYSICAL EXAM AT DISCHARGE General Appearance: positive: Moderate distress, Lethargic Eyes Bilateral: positive: PERRL, EOMI ENT: positive: Dry mucous membranes Neck: positive: No JVD, Trachea midline Respiratory: positive: Chest non-tender, Breath sounds nml. negative: Wheezes, Rales, Rhonchi Cardiovascular: positive: Regular rate & rhythm Abdomen: positive: Nml bowel sounds, No distention, Tenderness Rectal: positive: Stool - heme POS Back: positive: Nml inspection Skin: positive: Color nml, No rash, Warm, Dry Extremities: positive: Non-tender, Nml appearance, No pedal edema Neurologic/Psychiatric: positive: Oriented x3, Mood/affect nml - LABS Result Diagrams: 12/22/20 11:07 12/22/20 11:07 - TIME SPENT Time Spent in Discharge (Minutes): 30
--- NOTE | 2020-12-22 17:44 | Discharge Plan ---
Discharge Plan Problem Reviewed?: Yes Disposition: 02 Transfer Acute Care Hosp Condition: Stable Health Concerns: You presented with nonspecific abdominal pain and was slightly tremulous. You also appeared somewhat lethargic. It was suspected that your pain was due to alcoholic pancreatitis. Significant lab findings were Hgb 9.6, platelets 49, WBC 2.0 On 10/30/20 your hemoglobin was 12.4, platelets 144, WBC 4.8 Fecal occult blood test done was also noted to be positive. Your Total bilirubin was 5.7, AST 178, ALT 45, alk phos 172, lipase 149, Albumin 3.0, INR 1.8, ammonia 65.4. You recently underwent a TIPS procedure at [facility] Due to your liver failure and possible varices you are a significant risk for both sedation by anesthesia and bleeding during an EGD. As a result you are being transferred to [place] for higher level of care where you will be seen by a computer mechanic. This was explained to you and you are in agreement with the plan. Plan of Treatment: You presented with nonspecific abdominal pain and was slightly tremulous. You also appeared somewhat lethargic. It was suspected that your pain was due to alcoholic pancreatitis. Significant lab findings were Hgb 9.6, platelets 49, WBC 2.0 On 10/30/20 your hemoglobin was 12.4, platelets 144, WBC 4.8 Fecal occult blood test done was also noted to be positive. Your Total bilirubin was 5.7, AST 178, ALT 45, alk phos 172, lipase 149, Albumin 3.0, INR 1.8, ammonia 65.4. You recently underwent a TIPS procedure at [facility] Due to your liver failure and possible varices you are a significant risk for both sedation by anesthesia and bleeding during an EGD. As a result you are being transferred to [place] for higher level of care where you will be seen by a computer mechanic. This was explained to you and you are in agreement with the plan. Care Goals: You presented with nonspecific abdominal pain and was slightly tremulous. You also appeared somewhat lethargic. It was suspected that your pain was due to alcoholic pancreatitis. Significant lab findings were Hgb 9.6, platelets 49, WBC 2.0 On 10/30/20 your hemoglobin was 12.4, platelets 144, WBC 4.8 Fecal occult blood test done was also noted to be positive. Your Total bilirubin was 5.7, AST 178, ALT 45, alk phos 172, lipase 149, Albumin 3.0, INR 1.8, ammonia 65.4. You recently underwent a TIPS procedure at [facility] Due to your liver failure and possible varices you are a significant risk for both sedation by anesthesia and bleeding during an EGD. As a result you are being transferred to [place] for higher level of care where you will be seen by a computer mechanic. This was explained to you and you are in agreement with the plan. Assessment: You presented with nonspecific abdominal pain and was slightly tremulous. You also appeared somewhat lethargic. It was suspected that your pain was due to alcoholic pancreatitis. Significant lab findings were Hgb 9.6, platelets 49, WBC 2.0 On 10/30/20 your hemoglobin was 12.4, platelets 144, WBC 4.8 Fecal occult blood test done was also noted to be positive. Your Total bilirubin was 5.7, AST 178, ALT 45, alk phos 172, lipase 149, Albumin 3.0, INR 1.8, ammonia 65.4. You recently underwent a TIPS procedure at [facility] Due to your liver failure and possible varices you are a significant risk for both sedation by anesthesia and bleeding during an EGD. As a result you are being transferred to [place] for higher level of care where you will be seen by a computer mechanic. This was explained to you and you are in agreement with the plan. No Smoking: If you smoke, Please STOP! Call for help.
[2020-12-22 17:56] VITALS: BP 129/72
--- NOTE | 2020-12-22 18:26 | CONSULTATION NOTE ---
Referring Provider Name of Referring Provider:: [facility] Consult Date: 12/22/20 History of Present Illness - Admitted From Admitted From:: Abdominal pain - History Obtained From Records Reviewed: old records from previous admissions and endoscopies History obtained from: Physicians and care givers Exam Limitations: Patient is lethargic and disoriented - History of Present Illness HPI Comment/Other: Lee Ann is an unfortunate 60-year-old lady who is well-known to our service from prior admissions. She has been admitted to the medicine service on multiple occasions. The last time she had a procedure done by our service was in 2019 at which time she had an us esophagogastroduodenoscopy with banding of esophageal varices for advanced cirrhosis.Since that admission, she has undergone a TIPS procedure and so has less difficulty with bleeding and ascites.She continues to have problems with chronic pancreatitis and chronic abdominal pain.She presented back to the emergency room last evening or early this morning complaining of abdominal pain. She was found to be relatively anemic with a baseline hemoglobin of 12-1/2 and a current hemoglobin of 9-1/2. She was admitted to the medicine service and we have been consulted for consideration of EGD.She has not seen any chai blood in her stools nor has she had any hematemesis that she endorses.She reports she generally does not feel well. History - Past Medical History Cardiovascular: reports: Coronary artery disease, [place], Murmur Respiratory: reports: Shortness of breath Neuro: reports: Headaches, Migraines, Tremors Endocrine/Autoimmune: reports: None GI: reports: GERD, Pancreatitis, Hepatitis, Cirrhosis, Cholelithiasis, Other SURGICAL ORDERLY: reports: None : reports: Nocturia HEENT: reports: Chronic sinusitis Psych: reports: Depression, Anxiety, ADD/ADHD, Post traumatic stress disorder Musculoskeletal: reports: Osteoarthritis, Chronic back pain Derm: reports: None MRSA Hx?: Yes - Past Surgical History General: reports: Other Ortho: reports: Other /SURGICAL ORDERLY: reports: Tubal ligation, Breast implants HEENT: reports: Other - Family & Social History Family History: Mother: , CVA/TIA, Father: , Hyperlipidemia, Hypertension, [place], Sister: Alive and Well (Epilepsy), Brother: Alive and Well, Other family: Cancer, Diabetes, Type 2 Family History Comment/Other: neg for GI tumors Social History Notes: Patient lives in [place], [place] with her boyfriend. She has 2 children one son and one daughter. 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 She continues to smoke 3 cigarettes a day.She would go for months without drinking and binge drink. For the pas 5 days she has been drinking a box of wine daily. She denies any illicit drug use. - Substance History Use: Uses substance without health or social issues: Tobacco - POLST Patient has POLST: No POLST Status: Full Code Meds/Allgy - Home Medications Home Medications: Ambulatory Orders Medication Instructions Recorded Confirmed Multivitamin [Multiple Vitamins] 1 each PO DAILY #10 tablet 09/22/18 12/22/20 Pantoprazole [Protonix] 40 mg PO BID #30 tablet 03/03/19 12/22/20 Furosemide [Lasix] 20 mg PO DAILY #30 tablet 12/07/19 12/22/20 Gabapentin [Neurontin] 400 mg PO QID 07/19/20 12/22/20 Lactulose [Generlac] 30 gm PO DAILY 07/19/20 12/22/20 Lactulose [Generlac] 40 gm PO QPM 07/19/20 12/22/20 Lidocaine Patch 5% [Lidoderm Patch] 1 each TOP DAILY 07/19/20 12/22/20 Lipase/Protease/Amylase [Creon Dr 1 each PO TIDWM 07/19/20 12/22/20 12,000 Units Capsule] Spironolactone [Aldactone] 50 mg PO DAILY 07/19/20 12/22/20 busPIRone [Buspar] 5 mg PO TID 07/19/20 12/22/20 guaiFENesin [Mucinex] 400 mg PO Q6H PRN 07/19/20 12/22/20 hydrOXYzine PAMOATE [Vistaril] 25 - 50 mg PO Q6H PRN 07/19/20 12/22/20 rifAXIMin [Xifaxan] 550 mg PO BID 07/19/20 12/22/20 traZODone [Desyrel] 50 mg PO HS PRN 07/19/20 12/22/20 Pnv No.95/Ferrous Fum/Folic AC 1 each PO DAILY #30 tablet 07/30/20 12/22/20 [ Tablet] Thiamine HCl [Vitamin B-1] 100 mg PO DAILY #30 tablet 07/30/20 12/22/20 - Allergies Allergies/Adverse Reactions: Allergies Allergy/AdvReac Type Severity Reaction Status Date / Time ketorolac tromethamine * Allergy Severe Hives Verified 12/21/20 23:50 [From Toradol] Review of Systems - Constitutional Constitutional: reports: Fatigue - Respiratory Respiratory: reports: SOB at rest, SOB with exertion - Gastrointestinal Gastrointestinal: reports: Abdominal pain Exam - Vital Signs Reviewed Vital Signs: Yes Vital Signs: Vital Signs x48h Temp Pulse Resp BP Pulse Ox 12/22/20 17:45 36.3 C L 96 16 129/72 94 12/22/20 16:18 36.5 C 81 16 117/66 97 12/22/20 11:35 36.9 C 81 16 101/60 97 - Physical Exam General Appearance: positive: Lethargic Eyes Bilateral: positive: Other (Bilateral scleral icterus) ENT: positive: ENT inspection nml, No signs of dehydration Neck: positive: Trachea midline. negative: Thyromegaly Respiratory: positive: Chest non-tender, No respiratory distress, Other (Breath sounds are decreased bilaterally) Cardiovascular: positive: Regular rate & rhythm Peripheral Pulses: positive: 0 Abdomen: positive: Tenderness (Global tenderness to palpation.No rebound or true guarding) Neurologic/Psychiatric: positive: Other (The patient is oriented to person place and time when appropriately stimulated. She is otherwise lethargic and it is difficult for her to cooperate.) Conclusion and Plan - Lab Results Microbiology Results 12/22/20 01:05 Stool Occult Blood - Final Laboratory Results 12/22/20 12:10: Urine Color DARK YELLOW, Urine Clarity CLEAR, Urine pH 7.0, Ur Specific [place] 1.010, Urine Protein NEGATIVE, Urine Glucose (UA) NEGATIVE, Urine Ketones 15 H, Urine Occult Blood LARGE H, Urine Nitrite NEGATIVE, Urine Bilirubin SMALL H, Urine Urobilinogen 1 (NORMAL), Ur Leukocyte Esterase NEGATIVE, Urine RBC 11-25 H, Urine WBC 0-3, Ur Squamous Epith Cells FEW Squamous, Urine Bacteria Rare 12/22/20 11:07: Sodium 131 L, Potassium 3.0 L, Chloride 94 L, Carbon Dioxide 23, Anion Gap 14.0 H, BUN 8, Creatinine 0.5, Estimated GFR (MDRD) 126, Glucose 239 H, Calcium 8.1 L 12/22/20 11:07: Hgb 9.4 L, Hct 27.2 L 12/22/20 06:15: Magnesium 2.5 12/22/20 06:15: WBC 2.0 L*, RBC 2.79 L, Hgb 9.3 L, Hct 26.7 L, MCV 95.7, MCH 33.3 H, MCHC 34.8, RDW 14.3, Plt Count 46 L, MPV 10.7, Neut # (Auto) 1.8, Lymph # (Auto) 0.2 L, [place] # (Auto) 0.1, Eos # (Auto) 0.0, Baso # (Auto) 0.0, Absolute Nucleated RBC 0.00, Total Counted SEED TESTER, Band Neuts % (Manual) Not Reportable, Abnorm Lymph % (Manual) Not Reportable, Nucleated RBC % 0.0, Neutrophils # (Manual) Not Reportable, Lymphocytes # (Manual) Not Reportable, Monocytes # (Manual) Not Reportable, Eosinophils # (Manual) Not Reportable, Basophils # (Manual) Not Reportable, Differential Comment MANUAL=AUTO DIFF, Manual Slide Review Indicated, WBC Morphology NORMAL APPEARANCE, Platelet Estimate DECREASED (<130,000), Platelet Morphology NORMAL APPEARANCE, RBC Morph Micro Appear 1+ HYPOCHROMASIA 12/22/20 06:15: Ammonia 65.4 H 12/22/20 06:15: Sodium 127 L, Potassium 3.3 L, Chloride 92 L, Carbon Dioxide 21, Anion Gap 14.0 H, BUN 7, Creatinine 0.5, Estimated GFR (MDRD) 126, Glucose 177 H, Calcium 7.6 L, Magnesium 2.5, Total Bilirubin 5.7 H, AST 176 H, ALT 45, Alkaline Phosphatase 172 H, Total Protein 6.2 L, Albumin 3.0 L, Globulin 3.2, Albumin/Globulin Ratio 0.9 L 12/22/20 06:15: PT 19.8 H, INR 1.8 H 12/22/20 06:15: Blood Type A POSITIVE, Antibody Screen NEGATIVE 12/22/20 04:40: Nasal Screen MRSA (PCR) POSITIVE A* 12/22/20 01:30: PT 21.5 H, INR 2.0 H 12/22/20 00:39: Nasal Adenovirus (PCR) NOT DETECTED, Nasal B. parapertussis DNA (PCR) NOT DETECTED, Nasal Coronavir 229E PCR NOT DETECTED, Nasal Coronavir HKU1 PCR NOT DETECTED, Nasal Coronavir NL63 PCR NOT DETECTED, Nasal Coronavir OC43 PCR NOT DETECTED, Nasal Enterovir/Rhinovir PCR NOT DETECTED, Nasal Influenza B PCR NOT DETECTED, Nasal Influenza A PCR NOT DETECTED, Nasal Parainfluen 1 PCR NOT DETECTED, Nasal Parainfluen 2 PCR NOT DETECTED, Nasal Parainfluen 3 PCR NOT DETECTED, Nasal Parainfluen 4 PCR NOT DETECTED, Nasal RSV (PCR) NOT DETECTED, Nasal B.pertussis DNA PCR NOT DETECTED, Nasal C.pneumoniae (PCR) NOT DETECTED, Maurice Human Metapneumo PCR NOT DETECTED, Nasal M.pneumoniae (PCR) NOT DETECTED, Nasal SARS-CoV-2 (PCR) NOT DETECTED 12/22/20 00:00: Ethyl Alcohol < 5.0 12/22/20 00:00: Sodium 123 L, Potassium 3.4 L, Chloride 85 L, Carbon Dioxide 22, Anion Gap 16.0 H, BUN 9, Creatinine 0.5, Estimated GFR (MDRD) 126, Glucose 110 H, Calcium 8.1 L, Total Bilirubin 5.6 H, AST 181 H, ALT 45, Alkaline Phosphatase 175 H, Total Protein 6.2 L, Albumin 3.0 L, Globulin 3.2, Albumin/Globulin Ratio 0.9 L, Lipase 149 H 12/22/20 00:00: WBC 2.6 L, RBC 2.92 L, Hgb 9.6 L, Hct 29.0 L, MCV 99.3 H, MCH 32.9 H, MCHC 33.1, RDW 14.8, Plt Count 49 L, MPV 10.6, Neut # (Auto) 1.8, Lymph # (Auto) 0.4 L, [place] # (Auto) 0.3, Eos # (Auto) 0.0, Baso # (Auto) 0.0, Absolute Nucleated RBC 0.00, Nucleated RBC % 0.0 - Diagnostic Imaging Results Diagnostic Imaging Results Comments: Final report was reviewed and is consistent with advanced cirrhosis and functioning TIPS procedure without ascites.She is incidentally noted to have a renal stone - Diagnosis Diagnosis: Anemia of unknown etiology in a lady with known advanced hepatic cirrhosis.It certainly would be interesting to find out if she has any esophageal varices remaining after 1 round of banding followed by TIPS procedure. - Plan Plan: I agree that she would benefit from EGD. I have discussed this case with our anesthesia staff and they feel she is too high risk to sedate in our facility. I have recommended transfer to a higher level of care.
== END 2020-12-22 18:00 | disposition short-term general hospital (02) ==
LOC: EDUNIT# → ED 23:32 → MS2 12-22 02:53
PROVIDERS: ADMIT Internal Medicine; ATTEND Internal Medicine
DX: K85.20 Alcohol induced acute pancreatitis without necrosis or infection (principal); K70.30 Alcoholic cirrhosis of liver without ascites; F10.20 Alcohol dependence, uncomplicated; K92.1 Melena; Z86.14 Personal history of Methicillin resistant Staphylococcus aureus infection; E87.1 Hypo-osmolality and hyponatremia; R74.01 Elevation of levels of liver transaminase levels; D61.818 Other pancytopenia; R79.1 Abnormal coagulation profile; E87.6 Hypokalemia; I25.10 Atherosclerotic heart disease of native coronary artery without angina pectoris; F17.210 Nicotine dependence, cigarettes, uncomplicated; Z88.8 Allergy status to other drugs, medicaments and biological substances; K70.10 Alcoholic hepatitis without ascites; Z91.128 Patient's intentional underdosing of medication regimen for other reason; R53.83 Other fatigue; I78.1 Nevus, non-neoplastic; K21.9 Gastro-esophageal reflux disease without esophagitis; F32.9 Major depressive disorder, single episode, unspecified; Z98.890 Other specified postprocedural states; F43.10 Post-traumatic stress disorder, unspecified; Z79.899 Other long term (current) drug therapy
CPT/HCPCS: 0202U; 36415; 74177; 80048; 80053; 80320; 81001; 82140; 82270; 83690; 83735; 85014; 85018; 85025; 85610; 86850; 86900; 86901; 87640; 93005; 96365; 96366; 96367; 96375; 96376; 99285; A9270; G0378; J1170; J2060; J3411; J8499; Q9967; 82274

== ENCOUNTER 2020-12-22 17:47 | Outpatient (CLI) | payer MEDICAID | END 2020-12-22 17:48 | disposition short-term general hospital (02) | LOC: EMS 17:47 | PROVIDERS: ATTEND Internal Medicine | DX: K92.2 Gastrointestinal hemorrhage, unspecified (principal); K72.90 Hepatic failure, unspecified without coma; K85.90 Acute pancreatitis without necrosis or infection, unspecified; Z96.89 Presence of other specified functional implants | CPT/HCPCS: A0425; A0426 ==

== ENCOUNTER 2021-01-08 16:09 | Outpatient (CLI) | payer MEDICAID | END 2021-01-08 16:10 | disposition critical access hospital (66) | LOC: EMS 16:09 | DX: R14.0 Abdominal distension (gaseous) (principal); R06.00 Dyspnea, unspecified; R51.9 Headache, unspecified; R04.0 Epistaxis | CPT/HCPCS: A0425; A0429; A0999 ==

== ENCOUNTER 2021-01-08 16:18 | Emergency (ER) | payer MEDICAID ==
--- OUTSIDE RECORDS SUMMARY | 2021-01-08 16:25 | EXTERNAL MEDICAL SUMMARY RPT | Continuity of Care Document ---
:1960 Demographics Phone Unavailable Preferred Language Unknown Marital Status Unknown Christianity Affiliation Unknown Race Unknown Ethnic Group Unknown Author Organization [place] Address [address] [id number] Phone Problems date description facility [id number] upper GIB, liver failure [employer] Social History date description facility [id number]
[2021-01-08] MEDS ORDERED: SODIUM CHLORIDE 0.9% 1,000 ML IV STA (16:55)
--- NOTE | 2021-01-08 17:00 | ED Physician Documentation ---
History of Present Illness - Stated complaint Stated Complaint: SOA/NOSE BLEED - Chief complaint Chief Complaint: General - Additonal information Additional information: 60-year-old female presents the emergency department via EMS for evaluation of shortness of air yellowing of skin and abdominal discomfort. She does have a history of alcohol abuse ascites and cirrhosis. She also has a history of a TIPS procedure. She was admitted to this hospital early November but ultimately required transfer to [facility]. The records from there are pending but it sounds like she had a thoracentesis completed while at [facility]. She was discharged home about 1 week ago. Patient reports that since discharge from [facility] she has fainted multiple times mostly with exertion,so she has stayed in bed. She denies any further melena but does have coffee-ground emesis on her top. She has very jaundiced sclera. She smells heavily of alcohol. States that she did not drink at all for 3 months until today when she had a glass of wine to calm herself. Review of Systems Constitutional: denies: Fever, Chills Eyes: reports: Reviewed and negative Ears: reports: Reviewed and negative Nose: reports: Reviewed and negative Throat: reports: Reviewed and negative Cardiac: reports: Reviewed and negative Respiratory: reports: Dyspnea GI: reports: Abdominal Pain, Nausea, Vomiting, Hematemesis, Bloody / black stool : denies: Dysuria, Frequency, Hesitancy Skin: denies: Rash, Lesions Musculoskeletal: denies: Neck pain, Back pain PD PAST MEDICAL HISTORY - Past Medical History Cardiovascular: Coronary artery disease, [place], Murmur Respiratory: Shortness of breath Neuro: Headaches, Migraines, Tremors Endocrine/Autoimmune: None GI: GERD, Pancreatitis, Hepatitis, Cirrhosis, Cholelithiasis, Other FACILITY WORKER: None : Nocturia HEENT: Chronic sinusitis Psych: Depression, Anxiety, ADD/ADHD, Post traumatic stress disorder Musculoskeletal: Osteoarthritis, Chronic back pain Derm: None - Past Surgical History Past Surgical History: Yes General: Other Ortho: Other /FACILITY WORKER: Tubal ligation, Breast implants HEENT: Other - Present Medications Home Medications: Ambulatory Orders Medication Instructions Recorded Confirmed Multivitamin [Multiple Vitamins] 1 each PO DAILY #10 tablet 09/22/18 01/08/21 Pantoprazole [Protonix] 40 mg PO BID #30 tablet 03/03/19 01/08/21 Gabapentin [Neurontin] 400 mg PO QID 07/19/20 01/08/21 Lactulose [Generlac] 30 gm PO DAILY 07/19/20 01/08/21 Lactulose [Generlac] 40 gm PO QPM 07/19/20 01/08/21 Lidocaine Patch 5% [Lidoderm Patch] 1 each TOP DAILY 07/19/20 01/08/21 Lipase/Protease/Amylase [Creon Dr 1 each PO TIDWM 07/19/20 01/08/21 12,000 Units Capsule] busPIRone [Buspar] 5 mg PO TID 07/19/20 01/08/21 guaiFENesin [Mucinex] 400 mg PO Q6H PRN 07/19/20 01/08/21 hydrOXYzine PAMOATE [Vistaril] 25 - 50 mg PO Q6H PRN 07/19/20 01/08/21 rifAXIMin [Xifaxan] 550 mg PO BID 07/19/20 01/08/21 traZODone [Desyrel] 50 mg PO HS PRN 07/19/20 01/08/21 Pnv No.95/Ferrous Fum/Folic AC 1 each PO DAILY #30 tablet 07/30/20 01/08/21 [ Tablet] Thiamine HCl [Vitamin B-1] 100 mg PO DAILY #30 tablet 07/30/20 01/08/21 Furosemide [Lasix] 40 mg PO DAILY 01/08/21 01/08/21 Spironolactone [Aldactone] 100 mg PO DAILY 01/08/21 01/08/21 - Allergies Allergies/Adverse Reactions: Allergies Allergy/AdvReac Type Severity Reaction Status Date / Time ketorolac tromethamine * Allergy Severe Hives Verified 01/08/21 16:37 [From Toradol] - Social History Does the pt smoke?: Yes Smoking Status: Former smoker Does the pt drink ETOH?: Yes Does the pt have substance abuse?: No - Immunizations Immunizations are current?: No Immunizations: TDAP >10years/unknown - POLST Patient has POLST: No POLST Status: Full Code PD ED PE EXPANDED - General General: Alert, No acute distress, Other (smells heavily of alcohol) - HEENT HEENT: PERRL, Scleral icterus - Cardiac Cardiac: Tachy, Radial strong equal, Pedal strong equal, Cap refill < 2 sec - Respiratory Respiratory: Clear to ausultation josefina. No: Distress, Labored - Abdomen Abdomen: Normal Bowel sounds, Distended (Mild ascites appreciated but no rigid abdomen.) - Rectal Rectal: Other (JONAS completed. empty vault. no stool) - Derm Derm: Warm and dry, Jaundiced - Extremities Extremities: Normal. No: Deformity, Tenderness - Neuro Neuro: Alert and Oriented X 3, CNII-XII intact Results - Vitals Vitals: Vital Signs - 24 hr 01/08/21 01/08/21 01/08/21 16:27 18:15 19:21 Temperature 36.4 C L Heart Rate 112 H 97 108 H Respiratory 20 24 30 H Rate Blood Pressure 112/59 L 106/56 L 122/61 O2 Saturation 99 92 96 01/08/21 01/08/21 01/08/21 19:22 19:25 19:30 Temperature 36.6 C 36.6 C 36.5 C Heart Rate 107 H 97 Respiratory 30 H 30 H 18 Rate Blood Pressure 122/61 122/61 125/74 O2 Saturation 95 95 97 01/08/21 01/08/21 20:30 21:50 Temperature 37.0 C Heart Rate 97 98 Respiratory 23 35 H Rate Blood Pressure 106/70 128/49 L O2 Saturation 98 98 Oxygen O2 Source Room air - EKG (time done) 1714 Rate: Rate (enter#) (93) Rhythm: NSR Barry: Anterior hemiblock QRS: Low voltage Ischemia: Q waves (anterior) Computer interpretation: Agree with computer - Labs Labs: Microbiology 01/08/21 20:30 Occult Blood - Final Stool Laboratory Tests 01/08/21 01/08/21 01/08/21 16:54 17:00 17:48 WBC 20.8 H RBC 3.64 L Hgb 12.1 Hct 36.2 L MCV 99.5 H MCH 33.2 H MCHC 33.4 RDW 21.7 H Plt Count 259 MPV 9.8 Neut # (Auto) 17.5 H Lymph # (Auto) 1.3 L [place] # (Auto) 1.6 H Eos # (Auto) 0.1 Baso # (Auto) 0.1 Absolute Nucleated RBC 0.00 Nucleated RBC % 0.0 Manual Slide Review Indicated WBC Morphology NORMAL APPEARANCE Platelet Estimate NORMAL (130-450,000) Platelet Morphology NORMAL APPEARANCE RBC Morph Micro Appear NORMAL APPEARANCE PT INR APTT Sodium 125 L Potassium 3.3 L Chloride 93 L Carbon Dioxide 19 L Anion Gap 13.0 BUN 8 Creatinine 0.4 Estimated GFR (MDRD) 163 Glucose 141 H Lactic Acid Calcium 7.9 L Total Bilirubin 9.1 H AST 214 H ALT 63 H Alkaline Phosphatase 228 H Troponin I High Sens Total Protein 6.5 L Albumin 2.2 L Globulin 4.3 H Albumin/Globulin Ratio 0.5 L Lipase 147 H Urine Color ORANGE Urine Clarity HAZY Urine pH 6.0 Ur Specific [place] 1.025 Urine Protein TRACE Urine Glucose (UA) NEGATIVE Urine Ketones NEGATIVE Urine Occult Blood MODERATE H Urine Nitrite NEGATIVE Urine Bilirubin Urine Urobilinogen Ur Leukocyte Esterase TRACE H Urine RBC 11-25 H Urine WBC 11-25 H Ur Squamous Epith Cells MANY Squamous H Urine Bacteria Moderate H Urine Casts 0-2 Hyaline Casts Urine Mucus Few Strands Ur Microscopic Review INDICATED Urine Culture Comments NOT INDICATED Nasal Adenovirus (PCR) Nasal B. parapertussis DNA (PCR) Nasal Coronavir 229E PCR Nasal Coronavir HKU1 PCR Nasal Coronavir NL63 PCR Nasal Coronavir OC43 PCR Nasal Enterovir/Rhinovir PCR Nasal Influenza B PCR Nasal Influenza A PCR Nasal Parainfluen 1 PCR Nasal Parainfluen 2 PCR Nasal Parainfluen 3 PCR Nasal Parainfluen 4 PCR Nasal RSV (PCR) Nasal B.pertussis DNA PCR Nasal C.pneumoniae (PCR) [place] Human Metapneumo PCR Nasal M.pneumoniae (PCR) Nasal SARS-CoV-2 (PCR) Ethyl Alcohol 273.9 Blood Type Antibody Screen 01/08/21 01/08/21 01/08/21 17:48 17:48 17:48 WBC RBC Hgb Hct MCV MCH MCHC RDW Plt Count MPV Neut # (Auto) Lymph # (Auto) [place] # (Auto) Eos # (Auto) Baso # (Auto) Absolute Nucleated RBC Nucleated RBC % Manual Slide Review WBC Morphology Platelet Estimate Platelet Morphology RBC Morph Micro Appear PT 22.6 H INR 2.1 H APTT 40.9 H Sodium Potassium Chloride Carbon Dioxide Anion Gap BUN Creatinine Estimated GFR (MDRD) Glucose Lactic Acid Calcium Total Bilirubin AST ALT Alkaline Phosphatase Troponin I High Sens 10.8 Total Protein Albumin Globulin Albumin/Globulin Ratio Lipase Urine Color Urine Clarity Urine pH Ur Specific [place] Urine Protein Urine Glucose (UA) Urine Ketones Urine Occult Blood Urine Nitrite Urine Bilirubin Urine Urobilinogen Ur Leukocyte Esterase Urine RBC Urine WBC Ur Squamous Epith Cells Urine Bacteria Urine Casts Urine Mucus Ur Microscopic Review Urine Culture Comments Nasal Adenovirus (PCR) Nasal B. parapertussis DNA (PCR) Nasal Coronavir 229E PCR Nasal Coronavir HKU1 PCR Nasal Coronavir NL63 PCR Nasal Coronavir OC43 PCR Nasal Enterovir/Rhinovir PCR Nasal Influenza B PCR Nasal Influenza A PCR Nasal Parainfluen 1 PCR Nasal Parainfluen 2 PCR Nasal Parainfluen 3 PCR Nasal Parainfluen 4 PCR Nasal RSV (PCR) Nasal B.pertussis DNA PCR Nasal C.pneumoniae (PCR) [place] Human Metapneumo PCR Nasal M.pneumoniae (PCR) Nasal SARS-CoV-2 (PCR) Ethyl Alcohol Blood Type A POSITIVE Antibody Screen NEGATIVE 01/08/21 01/08/21 17:53 18:33 WBC RBC Hgb Hct MCV MCH MCHC RDW Plt Count MPV Neut # (Auto) Lymph # (Auto) [place] # (Auto) Eos # (Auto) Baso # (Auto) Absolute Nucleated RBC Nucleated RBC % Manual Slide Review WBC Morphology Platelet Estimate Platelet Morphology RBC Morph Micro Appear PT INR APTT Sodium Potassium Chloride Carbon Dioxide Anion Gap BUN Creatinine Estimated GFR (MDRD) Glucose Lactic Acid 3.7 H* Calcium Total Bilirubin AST ALT Alkaline Phosphatase Troponin I High Sens Total Protein Albumin Globulin Albumin/Globulin Ratio Lipase Urine Color Urine Clarity Urine pH Ur Specific [place] Urine Protein Urine Glucose (UA) Urine Ketones Urine Occult Blood Urine Nitrite Urine Bilirubin Urine Urobilinogen Ur Leukocyte Esterase Urine RBC Urine WBC Ur Squamous Epith Cells Urine Bacteria Urine Casts Urine Mucus Ur Microscopic Review Urine Culture Comments Nasal Adenovirus (PCR) NOT DETECTED Nasal B. parapertussis DNA (PCR) NOT DETECTED Nasal Coronavir 229E PCR NOT DETECTED Nasal Coronavir HKU1 PCR NOT DETECTED Nasal Coronavir NL63 PCR NOT DETECTED Nasal Coronavir OC43 PCR NOT DETECTED Nasal Enterovir/Rhinovir PCR NOT DETECTED Nasal Influenza B PCR NOT DETECTED Nasal Influenza A PCR NOT DETECTED Nasal Parainfluen 1 PCR NOT DETECTED Nasal Parainfluen 2 PCR NOT DETECTED Nasal Parainfluen 3 PCR NOT DETECTED Nasal Parainfluen 4 PCR NOT DETECTED Nasal RSV (PCR) NOT DETECTED Nasal B.pertussis DNA PCR NOT DETECTED Nasal C.pneumoniae (PCR) NOT DETECTED Maurice Human Metapneumo PCR NOT DETECTED Nasal M.pneumoniae (PCR) NOT DETECTED Nasal SARS-CoV-2 (PCR) NOT DETECTED Ethyl Alcohol Blood Type Antibody Screen - Rads (name of study) CXR Radiology: Final report received (Moderate right pleural effusion with atelectasis or consolidation of the right lower lobe. No pneumothorax.) PD MEDICAL DECISION MAKING - ED course Complexity details: reviewed old records, reviewed results, re-evaluated patient, d/w patient ED course: 60-year-old female who has a history of alcoholic cirrhosis as well as status post TIPS procedure presents to the emergency department with shortness of air and coffee-ground emesis on her clothing. She was recently discharged from [facility] where she underwent a thoracostomy for a right-sided pleural effusion. She reports that since being discharged from the hospital she has fainted multiple times and has been unable to get out of bed without falling to the floor. She does present as septic with an elevated white blood cell count as well as a lactic acidosis. She does have findings consist ent with a urinary tract infection she was started on Unasyn to cover both urinary and abdominal pathology. Chest x-ray here suggest a moderate to large right-sided pleural effusion. Given her history of severe alcoholic cirrhosis as well as previous TIPS procedure we are unable to manage the complexity of her care at [facility]. Therefore I have reached out to [facility] and Dr. Prudence Bravo has graciously accepted to receive the patient in transfer pending Covid results. Appropriate COBRA paperwork completed. - Sepsis Event Sepsis Onset Date: 01/08/21 Sepsis Onset Time: 18:15 Current Stage of Sepsis: Sepsis Initial Hypotension: Not hypotensive Possible source of Sepsis: Pulmonary, GI tract/intra-abdominal Mental/Cognitive Status: Alert/Oriented X3 Reason for not giving 30ml/kg crystalloid fluids: Not in septic shock Peripheral Pulse Strength: 2+ Slightly Diminished Peripheral Pulse Location: Pedal Bedside ultrasound performed: No Sepsis Comment: Elevated white blood cell count of 21,000 lactate of 3. UA shows signs of infection. History of cirrhosis as well as recent thoracentesis. Appropriate fluid volume ordered as well as Unasyn which should adequately cover abdominal and GI bacteria. blood cx pending Departure - Departure Disposition: 02 Transfer Acute Care Hosp Clinical Impression: Pleural effusion, right, Hyponatremia Sepsis Qualifiers: Sepsis type: sepsis due to unspecified organism Sepsis acute organ dysfunction status: with acute organ dysfunction Severe sepsis acute organ dysfunction type: acute liver failure Hepatic coma status: without hepatic coma Severe sepsis shock status: without septic shock Qualified Code(s): A41.9 - Sepsis, unspecified organism Cirrhosis Qualifiers: Hepatic cirrhosis type: alcoholic cirrhosis Ascites presence: with ascites Qualified Code(s): K70.31 - Alcoholic cirrhosis of liver with ascites
--- NOTE | 2021-01-08 17:24 | XRAY Report ---
PROCEDURE: Chest 1 View X-Ray INDICATIONS: recent pleural effusion s/p throacentesis TECHNIQUE: One view of the chest was acquired. COMPARISON: Chest radiograph 10/16/2020 FINDINGS: Surgical changes and devices: None. Lungs and pleura: A moderate right-sided pleural effusion is seen with atelectasis or consolidation i n the right lower lobe. No pneumothorax is seen. The left lung is clear. Mediastinum: Mediastinal contours appear normal. Heart size is normal. Bones and chest wall: No suspicious bony lesions. Overlying soft tissues appear unremarkable. IMPRESSION: Moderate right pleural effusion with atelectasis or consolidation of the right lower lobe. No pneumot horax. Reviewed by: Angelo Martinez MD on 01/08/2021 5:23 PM PDT Approved by: Angelo Martinez MD on 01/08/2021 5:23 PM PDT Station ID: [id number]
[2021-01-08 17:26] LABS: CLARITY,URINE HAZY (CLEAR); GLUCOSE, URINE (UA) NEGATIVE (NEGATIVE); KETONES,URINE (UA) NEGATIVE (NEGATIVE); LEUKOCYTE ESTERASE, URINE TRACE (NEGATIVE); NITRITE,URINE NEGATIVE (NEGATIVE); OCCULT BLOOD,URINE MODERATE (NEGATIVE); PROTEIN,URINE TRACE mg/dL (NEGATIVE)
[2021-01-08 17:30] LABS: BASOPHILS # (AUTO) 0.1 10^3/uL (0.0-0.1); BASOPHILS % (AUTO) 0.3 %; EOSINOPHILS # (AUTO) 0.1 10^3/uL (0.0-0.7); EOSINOPHILS % (AUTO) 0.4 %; HCT - HEMATOCRIT 36.2 % (37.0-47.0); HGB - HEMOGLOBIN 12.1 g/dL (12.0-16.0); LYMPHOCYTES # (AUTO) 1.3 10^3/uL (1.5-3.5); LYMPHOCYTES % (AUTO) 6.1 %; MEAN CORPUSCULAR HEMOGLOBIN 33.2 pg (27.0-31.0); MEAN CORPUSCULAR HGB CONC 33.4 g/dL (32.0-36.0); MEAN CORPUSCULAR VOLUME 99.5 fL (81.0-99.0); MEAN PLATELET VOLUME 9.8 fL (7.9-10.8); MONOCYTES # (AUTO) 1.6 10^3/uL (0.0-1.0); MONOCYTES % (AUTO) 7.7 %; NEUTROPHILS # (AUTO) 17.5 10^3/uL (1.5-6.6); NEUTROPHILS % (AUTO) 84.4 %; PLT - PLATELET COUNT 259 10^3/uL (130-450); RED BLOOD COUNT 3.64 10^6/uL (4.20-5.40); RED CELL DISTRIBUTION WIDTH 21.7 % (12.0-15.0); WHITE BLOOD COUNT 20.8 x10^3/uL (4.8-10.8)
[2021-01-08 17:32] LABS: SLIDE REVIEW? Indicated
[2021-01-08 17:44] LABS: SQUAMOUS EPITHELIAL CELL,UR MANY Squamous (<= Few)
[2021-01-08 17:45] LABS: BACTERIA,URINE Moderate /HPF (None Seen); CASTS, URINE 0-2 Hyaline Casts /LPF; MUCUS,URINE Few Strands
[2021-01-08 17:55] LABS: ALBUMIN 2.2 g/dL (3.2-5.5); ALBUMIN/GLOBULIN RATIO 0.5 (1.0-2.2); BILIRUBIN,TOTAL 9.1 mg/dL (0.2-1.0); CALCIUM 7.9 mg/dL (8.5-10.3); CREATININE 0.4 mg/dL (0.4-1.0); ETOH - ETHANOL 273.9 mg/dL; POTASSIUM 3.3 mmol/L (3.5-5.0); TOTAL PROTEIN 6.5 g/dL (6.7-8.2)
[2021-01-08 18:02] LABS: PLATELET MORPHOLOGY NORMAL APPEARANCE (NORMAL)
[2021-01-08 18:03] LABS: PLATELET ESTIMATE, MANUAL NORMAL (130-450,000) (NORMAL); RBC MORPHOLOGY (MULTIPLE) NORMAL APPEARANCE (NORMAL); WBC MORPHOLOGY (MULTIPLE) NORMAL APPEARANCE (NORMAL)
[2021-01-08 18:06] LABS: INR 2.1 (0.8-1.2); PT - PROTHROMBIN TIME 22.6 secs (9.9-12.6)
[2021-01-08 18:12] LABS: LACTIC ACID, VENOUS 3.7 mmol/L (0.5-2.2)
[2021-01-08 18:13] LABS: PARTIAL THROMBOPLASTIN TIME 40.9 secs (24.9-33.3)
[2021-01-08] MEDS ORDERED: AMPICILLIN/SULBACTAM 3 GM in SODIUM CHLORIDE 0.9% MINIBAG 100 ML IV STA (18:17)
[2021-01-08] MEDS ORDERED: SODIUM CHLORIDE 0.9% 600 ML IV STA (18:21)
[2021-01-08] MEDS ORDERED: fentaNYL 100 MCG/2 ML VIAL IVP STA ×3 (18:42→21:38)
[2021-01-08 19:38] LABS: B. PARAPERTUSSIS- RESP PCR PAN NOT DETECTED; B. PERTUSSIS- RESP PCR PANEL NOT DETECTED; C. PNEUMONIAE- RESP PCR PANEL NOT DETECTED; CORONAVIRUS 229E-RESP PCR NOT DETECTED; CORONAVIRUS HKU1-RESP PCR NOT DETECTED; CORONAVIRUS NL63-RESP PCR NOT DETECTED; CORONAVIRUS OC43-RESP PCR NOT DETECTED; HUMAN METAPNEUMOVIRUS NOT DETECTED; INFLUENZA A- RESP PCR PANEL NOT DETECTED; INFLUENZA B - RESP PCR PANEL NOT DETECTED; M. PNEUMONIAE- RESP PCR PANEL NOT DETECTED; PARAINFLUENZA VIRUS 1 NOT DETECTED; PARAINFLUENZA VIRUS 2 NOT DETECTED; PARAINFLUENZA VIRUS 3 NOT DETECTED; PARAINFLUENZA VIRUS 4 NOT DETECTED; RHINOVIRUS/ENTEROVIRUS NOT DETECTED; RSV- RESP PCR PANEL NOT DETECTED; SARS-CoV-2 -RESP PCR PANEL NOT DETECTED
[2021-01-08] MEDS: ACETAMINOPHEN 325 MG TABLET PO STA ×2 (20:23→20:29)
[2021-01-08 21:50] VITALS: BP 128/49
== END 2021-01-08 21:52 | disposition short-term general hospital (02) ==
LOC: EDUNIT# → ED 16:18 → SUPCPDRO 16:18 → ED 21:49
DX: A41.9 Sepsis, unspecified organism (principal); N39.0 Urinary tract infection, site not specified; R65.20 Severe sepsis without septic shock; K72.00 Acute and subacute hepatic failure without coma; J90 Pleural effusion, not elsewhere classified; E87.1 Hypo-osmolality and hyponatremia; K92.0 Hematemesis; K70.31 Alcoholic cirrhosis of liver with ascites; F10.10 Alcohol abuse, uncomplicated; I44.4 Left anterior fascicular block; Z20.822 Contact with and (suspected) exposure to COVID-19; Z87.891 Personal history of nicotine dependence
CPT/HCPCS: 0202U; 36415; 71045; 80053; 80320; 81001; 82272; 83605; 83690; 84484; 85025; 85610; 85730; 86850; 86900; 86901; 87040; 93005; 96365; 96375; 96376; 99283; 99285; A9270; 81003; 87086

== ENCOUNTER 2021-01-08 21:36 | Outpatient (CLI) | payer MEDICAID | END 2021-01-08 21:37 | disposition short-term general hospital (02) | LOC: EMS 21:36 | PROVIDERS: ATTEND Registered Nurse | DX: A41.9 Sepsis, unspecified organism (principal); K74.60 Unspecified cirrhosis of liver; N39.0 Urinary tract infection, site not specified; J90 Pleural effusion, not elsewhere classified | CPT/HCPCS: A0425; A0428 ==

== ENCOUNTER 2021-01-14 18:06 | Emergency (ER) | payer MEDICAID ==
--- OUTSIDE RECORDS SUMMARY | 2021-01-14 18:09 | EXTERNAL MEDICAL SUMMARY RPT | Continuity of Care Document ---
:1960 Demographics Phone Unavailable Preferred Language Unknown Marital Status Unknown Anabaptism Affiliation Unknown Race Unknown Ethnic Group Unknown Author Organization [place] Address [address] [phone] Phone Problems date description facility [id number] [facility] [id number] upper GIB, liver failure [facility]
--- OUTSIDE RECORDS SUMMARY | 2021-01-14 18:16 | EXTERNAL MEDICAL SUMMARY RPT | Continuity of Care Document ---
:1960 Demographics Phone Unavailable Preferred Language Unknown Marital Status Unknown Presybeterian Affiliation Unknown Race Unknown Ethnic Group Unknown Author Organization [place] Address [address] [phone] Phone Problems date description facility [id number] [facility] [id number] upper GIB, liver failure [facility]
[2021-01-14 18:52] LABS: BASOPHILS % (AUTO) 0.4 %; EOSINOPHILS % (AUTO) 1.2 %; HGB - HEMOGLOBIN 11.6 g/dL (12.0-16.0); LYMPHOCYTES % (AUTO) 9.6 %; MEAN CORPUSCULAR HEMOGLOBIN 34.2 pg (27.0-31.0); MEAN CORPUSCULAR HGB CONC 33.1 g/dL (32.0-36.0); MEAN CORPUSCULAR VOLUME 103.2 fL (81.0-99.0); MEAN PLATELET VOLUME 9.7 fL (7.9-10.8); MONOCYTES % (AUTO) 13.8 %; NEUTROPHILS % (AUTO) 73.9 %; PLT - PLATELET COUNT 151 10^3/uL (130-450); RED BLOOD COUNT 3.39 10^6/uL (4.20-5.40); RED CELL DISTRIBUTION WIDTH 21.2 % (12.0-15.0)
[2021-01-14 18:55] LABS: ABNORMAL LYMPHS % (MANUAL) 0 %
[2021-01-14 19:08] LABS: INR 2.5 (0.8-1.2); PT - PROTHROMBIN TIME 26.1 secs (9.9-12.6)
[2021-01-14 19:10] LABS: ALBUMIN 1.9 g/dL (3.2-5.5); ALBUMIN/GLOBULIN RATIO 0.4 (1.0-2.2); BILIRUBIN,TOTAL 9.5 mg/dL (0.2-1.0); CALCIUM 8.3 mg/dL (8.5-10.3); CREATININE 0.6 mg/dL (0.4-1.0); POTASSIUM 4.1 mmol/L (3.5-5.0); TOTAL PROTEIN 6.4 g/dL (6.7-8.2)
[2021-01-14 19:15] LABS: PARTIAL THROMBOPLASTIN TIME 38.5 secs (24.9-33.3)
[2021-01-14 19:56] LABS: CLARITY,URINE CLEAR (CLEAR); GLUCOSE, URINE (UA) NEGATIVE (NEGATIVE); KETONES,URINE (UA) TRACE mg/dL (NEGATIVE); LEUKOCYTE ESTERASE, URINE NEGATIVE (NEGATIVE); NITRITE,URINE NEGATIVE (NEGATIVE); OCCULT BLOOD,URINE TRACE-INTA (NEGATIVE); PROTEIN,URINE NEGATIVE (NEGATIVE)
[2021-01-14 20:01] LABS: BAND NEUTROPHILS % (MANUAL) 2 %; EOSINOPHILS # (MANUAL) 0.4 10^3/uL (0-0.7); LYMPHOCYTES # (MANUAL) 1.3 10^3/uL (1.5-3.5); LYMPHOCYTES % (MANUAL) 12 %; NEUTROPHILS # (MANUAL) 8.3 10^3/uL (1.5-6.6)
[2021-01-14 20:02] LABS: DIFFERENTIAL COMMENT MANUAL DIFFERENTIAL; PLATELET ESTIMATE, MANUAL NORMAL (130-450,000) (NORMAL); PLATELET MORPHOLOGY NORMAL APPEARANCE (NORMAL); WBC MORPHOLOGY (MULTIPLE) 1+ TOXIC GRANULATION (NORMAL)
[2021-01-14 20:09] LABS: BACTERIA,URINE Rare /HPF (None Seen); RBC,URINE 0-5 /HPF (0-5); SQUAMOUS EPITHELIAL CELL,UR MOD Squamous (<= Few); WBC,URINE 0-3 /HPF (0-5)
[2021-01-14] MEDS ORDERED: oxyCODONE 5 MG TABLET PO STA (21:17)
--- NOTE | 2021-01-14 21:35 | ED Physician Documentation ---
History of Present Illness - Stated complaint Stated Complaint: ABD PX, SWOLLEN TONGUE - Chief complaint Chief Complaint: Abd Pain - History obtained from History obtained from: Patient - History of Present Illness Pain level max: 0 Pain level now: 0 - Additonal information Additional information: Patient is a 60-year-old female well-known to the emergency department with ongoing abdominal swelling from cirrhosis. This been ongoing for the past year. She was recently admitted to [facility] in [place] and states she was discharged 2 days ago. She states that she is concerned that the fluid in her lungs is likely returning and she is concerned about the fluid in her abdomen. She states she has mild difficulty breathing. Nothing makes it better or worse. She also states that she is out of her oxycodone. She states her last alcohol use was 6 days ago Review of Systems Ten Systems: 10 systems reviewed and negative Constitutional: denies: Fever, Chills Eyes: denies: Decreased vision Ears: denies: Ear pain Nose: denies: Rhinorrhea / runny nose, Congestion Throat: denies: Sore throat Cardiac: denies: Chest pain / pressure, Palpitations Respiratory: denies: Cough, Hemoptysis, Wheezing GI: reports: Diarrhea (chronic from lactulose, no changes.). 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 : Nocturia HEENT: Chronic sinusitis Psych: Depression, Anxiety, ADD/ADHD, Post traumatic stress disorder Musculoskeletal: Osteoarthritis, Chronic back pain Derm: None - Past Surgical History Past Surgical History: Yes General: Other Ortho: Other /MICROBIOLOGY SUPERVISOR: Tubal ligation, Breast implants HEENT: Other - Present Medications Home Medications: Ambulatory Orders Medication Instructions Recorded Confirmed Multivitamin [Multiple Vitamins] 1 each PO DAILY #10 tablet 09/22/18 01/14/21 Pantoprazole [Protonix] 40 mg PO BID #30 tablet 03/03/19 01/14/21 Gabapentin [Neurontin] 400 mg PO QID 07/19/20 01/14/21 Lactulose [Generlac] 30 gm PO DAILY 07/19/20 01/14/21 Lactulose [Generlac] 40 gm PO QPM 07/19/20 01/14/21 Lidocaine Patch 5% [Lidoderm Patch] 1 each TOP DAILY 07/19/20 01/14/21 Lipase/Protease/Amylase [Creon Dr 1 each PO TIDWM 07/19/20 01/14/21 12,000 Units Capsule] busPIRone [Buspar] 5 mg PO TID 07/19/20 01/14/21 guaiFENesin [Mucinex] 400 mg PO Q6H PRN 07/19/20 01/14/21 hydrOXYzine PAMOATE [Vistaril] 25 - 50 mg PO Q6H PRN 07/19/20 01/14/21 rifAXIMin [Xifaxan] 550 mg PO BID 07/19/20 01/14/21 traZODone [Desyrel] 50 mg PO HS PRN 07/19/20 01/14/21 Pnv No.95/Ferrous Fum/Folic AC 1 each PO DAILY #30 tablet 07/30/20 01/14/21 [ Tablet] Thiamine HCl [Vitamin B-1] 100 mg PO DAILY #30 tablet 07/30/20 01/08/21 Furosemide [Lasix] 40 mg PO DAILY 01/08/21 01/14/21 Spironolactone [Aldactone] 100 mg PO DAILY 01/08/21 01/14/21 oxyCODONE [Roxicodone] 5 mg PO Q8H PRN #7 tablet 01/14/21 - Allergies Allergies/Adverse Reactions: Allergies Allergy/AdvReac Type Severity Reaction Status Date / Time ketorolac tromethamine * Allergy Severe Hives Verified 01/14/21 18:11 [From Toradol] - Social History Does the pt smoke?: Yes Smoking Status: Current every day smoker Does the pt drink ETOH?: Yes Does the pt have substance abuse?: No - Immunizations Immunizations are current?: No Immunizations: TDAP >10years/unknown - POLST Patient has POLST: No POLST Status: Full Code PD ED PE NORMAL - Vitals Vital signs reviewed: Yes - General General: Alert and oriented X 3, No acute distress - HEENT HEENT: Moist mucous membranes - Neck Neck: Supple, no meningeal sign - Cardiac Cardiac: RRR - Respiratory Respiratory: No respiratory distress, Other (diminished breath sounds on the R lower lung. ) - Abdomen Abdomen: Soft, Non tender, Other (mild distention. no tense ascites.) - Derm Derm: Warm and dry - Extremities Extremities: No calf tenderness / cord - Neuro Neuro: Alert and oriented X 3 Results - Vitals Vitals: Vital Signs - 24 hr 01/14/21 01/14/21 01/14/21 18:11 19:17 21:00 Temperature 36.9 C 36.9 C Heart Rate 106 H 97 89 Respiratory 22 19 20 Rate Blood Pressure 138/65 H 125/62 122/64 O2 Saturation 97 99 99 01/14/21 22:27 Temperature 36.9 C Heart Rate 81 Respiratory 19 Rate Blood Pressure 123/62 O2 Saturation 99 Oxygen O2 Source Room air - EKG (time done) 1819 Rate: Rate (enter#) (101) Rhythm: NSR Decker: Normal Intervals: Normal FL QRS: Normal Ischemia: Non specific changes - Labs Labs: Laboratory Tests 01/14/21 01/14/21 01/14/21 18:45 18:45 18:45 WBC 11.0 H RBC 3.39 L Hgb 11.6 L Hct 35.0 L MCV 103.2 H MCH 34.2 H MCHC 33.1 RDW 21.2 H Plt Count 151 MPV 9.7 Neut # (Auto) Not Reportable Lymph # (Auto) Not Reportable [place] # (Auto) Not Reportable Eos # (Auto) Not Reportable Baso # (Auto) Not Reportable Absolute Nucleated RBC Not Reportable Total Counted 100 Band Neuts % (Manual) 2 Abnorm Lymph % (Manual) 0 Nucleated RBC % Not Reportable Neutrophils # (Manual) 8.3 H Lymphocytes # (Manual) 1.3 L Monocytes # (Manual) 1.0 Eosinophils # (Manual) 0.4 Basophils # (Manual) 0.0 Differential Comment MANUAL DIFFERENTIAL WBC Morphology 1+ TOXIC GRANULATION Platelet Estimate NORMAL (130-450,000) Platelet Morphology NORMAL APPEARANCE RBC Morph Micro Appear 1+ POLYCHROMASIA PT 26.1 H INR 2.5 H APTT 38.5 H Sodium 134 L Potassium 4.1 Chloride 102 Carbon Dioxide 24 Anion Gap 8.0 BUN 10 Creatinine 0.6 Estimated GFR (MDRD) 102 Glucose 159 H Calcium 8.3 L Total Bilirubin 9.5 H AST 123 H ALT 49 Alkaline Phosphatase 210 H Total Protein 6.4 L Albumin 1.9 L Globulin 4.5 H Albumin/Globulin Ratio 0.4 L Lipase 133 H Urine Color Urine Clarity Urine pH Ur Specific [place] Urine Protein Urine Glucose (UA) Urine Ketones Urine Occult Blood Urine Nitrite Urine Bilirubin Urine Urobilinogen Ur Leukocyte Esterase Urine RBC Urine WBC Ur Squamous Epith Cells Urine Bacteria Ur Microscopic Review Urine Culture Comments Ethyl Alcohol 01/14/21 01/14/21 18:45 19:12 WBC RBC Hgb Hct MCV MCH MCHC RDW Plt Count MPV Neut # (Auto) Lymph # (Auto) [place] # (Auto) Eos # (Auto) Baso # (Auto) Absolute Nucleated RBC Total Counted Band Neuts % (Manual) Abnorm Lymph % (Manual) Nucleated RBC % Neutrophils # (Manual) Lymphocytes # (Manual) Monocytes # (Manual) Eosinophils # (Manual) Basophils # (Manual) Differential Comment WBC Morphology Platelet Estimate Platelet Morphology RBC Morph Micro Appear PT INR APTT Sodium Potassium Chloride Carbon Dioxide Anion Gap BUN Creatinine Estimated GFR (MDRD) Glucose Calcium Total Bilirubin AST ALT Alkaline Phosphatase Total Protein Albumin Globulin Albumin/Globulin Ratio Lipase Urine Color ORANGE Urine Clarity CLEAR Urine pH 6.0 Ur Specific [place] 1.015 Urine Protein NEGATIVE Urine Glucose (UA) NEGATIVE Urine Ketones TRACE Urine Occult Blood TRACE-INTA Urine Nitrite NEGATIVE Urine Bilirubin Urine Urobilinogen Ur Leukocyte Esterase NEGATIVE Urine RBC 0-5 Urine WBC 0-3 Ur Squamous Epith Cells MOD Squamous H Urine Bacteria Rare Ur Microscopic Review INDICATED Urine Culture Comments NOT INDICATED Ethyl Alcohol < 5.0 - Rads (name of study) cxr Radiology: Prelim report reviewed, EMP read contemporaneously, See rad report (Moderate to large right-sided pleural effusion) PD MEDICAL DECISION MAKING - ED course Complexity details: reviewed results, re-evaluated patient, considered differential, d/w patient ED course: 60-year-old female with recurrent pleural effusion. No hypoxia. No respiratory distress. Recommend that she follow-up with her doctor for outpatient thoracentesis. This should be scheduled with radiology. Does not have significant ascites on examination of the abdomen. Ultrasound was applied as well. We will have her follow-up with her doctor for further care. Patient is well-appearing, nontoxic. Afebrile. Labs improved from prior. Patient couns eled regarding signs and symptoms for which I believe and urgent re-evaluation would be necessary. Patient with good understanding of and agreement to plan and is comfortable going home at this time This document was made in part using voice recognition software. While efforts are made to proofread this document, sound alike and grammatical errors may occur. Departure - Departure Disposition: 01 Home, Self Care Clinical Impression: Pleural effusion, right Liver cirrhosis, alcoholic Qualifiers: Ascites presence: with ascites Qualified Code(s): K70.31 - Alcoholic cirrhosis of liver with ascites Condition: Stable Instructions: Cirrhosis Liver Dc Follow-Up: Adam Negro MD [Primary Care Provider] - Within 1 week Prescriptions: oxyCODONE [Roxicodone] 5 mg PO Q8H PRN #7 tablet PRN Reason: Abdominal Pain Comments: Contact your doctor to schedule a thoracentesis with radiology. Return if you worsen. We will prescribe a small amount of pain medication for you. Do not drink alcohol with the pain medication. Do not drink alcohol or drive while on narcotic pain medicine. Note that many narcotic pain relievers also contain tylenol/acetaminophen. Please ensure that your total dose of acetaminophen from all sources does not exceed 3 grams (3000mg) per day. You may constipated on this medication, take a stool softener such as "Colace" twice a day while you are on it. Also recommend a uaqk-vlf-limrgbd laxative such as senna or MiraLAX any day that you do not have a bowel movement. If you received narcotic pain medication in the emergency department, do not drive or operate machinery for the next 24 hours. Discharge Date/Time: 01/14/21 22:27
--- NOTE | 2021-01-14 21:44 | XRAY Report ---
PROCEDURE: Chest 2 View X-Ray INDICATIONS: pleural effusions TECHNIQUE: 2 view(s) of the chest. COMPARISON: None. FINDINGS: Surgical changes and devices: None. No pneumothorax. Moderate to large right pleural effusion with adjacent atelectasis. Left lung appear s clear. Mediastinum: Mediastinal contours are normal. Heart size is normal. Bones and chest wall: Chronic L2 compression fracture with mild height loss. Additionally noted TIPS. IMPRESSION: Moderate to large right pleural effusion with adjacent atelectasis. Reviewed by: Colt Olivier MD on 01/14/2021 9:43 PM PDT Approved by: Colt Olivier MD on 01/14/2021 9:43 PM PDT Station ID: [id number]
[2021-01-14] MEDS ORDERED: oxyCODONE/ACET 5/325 Prepack 4 PO STA (22:05)
[2021-01-14 22:29] VITALS: BP 123/62
== END 2021-01-14 22:27 | disposition home or self-care (01) ==
LOC: ED 18:06
DX: J90 Pleural effusion, not elsewhere classified (principal); K70.31 Alcoholic cirrhosis of liver with ascites; I44.4 Left anterior fascicular block; F17.200 Nicotine dependence, unspecified, uncomplicated
CPT/HCPCS: 36415; 71046; 80053; 80320; 81001; 83690; 85025; 85610; 85730; 93005; 99284; A9270; 81003; 87086

== ENCOUNTER 2021-01-21 11:25 | Outpatient (CLI) | payer MEDICAID ==
[2021-01-21 12:37] LABS: BASOPHILS % (AUTO) 0.3 %; EOSINOPHILS # (AUTO) 0.1 10^3/uL (0.0-0.7); EOSINOPHILS % (AUTO) 0.6 %; HGB - HEMOGLOBIN 11.8 g/dL (12.0-16.0); LYMPHOCYTES # (AUTO) 0.9 10^3/uL (1.5-3.5); LYMPHOCYTES % (AUTO) 6.8 %; MEAN CORPUSCULAR HGB CONC 33.7 g/dL (32.0-36.0); MEAN CORPUSCULAR VOLUME 103.9 fL (81.0-99.0); MEAN PLATELET VOLUME 10.7 fL (7.9-10.8); MONOCYTES # (AUTO) 1.1 10^3/uL (0.0-1.0); MONOCYTES % (AUTO) 7.7 %; NEUTROPHILS # (AUTO) 11.7 10^3/uL (1.5-6.6); PLT - PLATELET COUNT 161 10^3/uL (130-450); RED BLOOD COUNT 3.37 10^6/uL (4.20-5.40); RED CELL DISTRIBUTION WIDTH 18.2 % (12.0-15.0); WHITE BLOOD COUNT 13.9 x10^3/uL (4.8-10.8)
[2021-01-21 12:55] LABS: ALBUMIN 1.9 g/dL (3.2-5.5); ALBUMIN/GLOBULIN RATIO 0.4 (1.0-2.2); BILIRUBIN,TOTAL 10.2 mg/dL (0.2-1.0); CALCIUM 8.2 mg/dL (8.5-10.3); CREATININE 0.6 mg/dL (0.4-1.0); TOTAL PROTEIN 6.2 g/dL (6.7-8.2)
[2021-01-21 13:20] LABS: INR 2.4 (0.8-1.2); PT - PROTHROMBIN TIME 25.5 secs (9.9-12.6)
== END 2021-01-21 11:26 | disposition home or self-care (01) ==
LOC: LAB 11:25
PROVIDERS: ATTEND Internal Medicine
DX: J94.8 Other specified pleural conditions (principal); K70.30 Alcoholic cirrhosis of liver without ascites
CPT/HCPCS: 36415; 80053; 83615; 85025; 85610; 85730

== ENCOUNTER 2021-01-26 10:05 | Emergency (ER) | payer MEDICAID ==
--- OUTSIDE RECORDS SUMMARY | 2021-01-26 10:09 | EXTERNAL MEDICAL SUMMARY RPT | Continuity of Care Document ---
:1960 Demographics Phone Unavailable Preferred Language Unknown Marital Status Unknown Nondenominational Affiliation Unknown Race Unknown Ethnic Group Unknown Author Organization [place] Address [address] [phone] Phone Problems date description facility [id number] [facility] [id number] upper GIB, liver failure [facility]
--- OUTSIDE RECORDS SUMMARY | 2021-01-26 10:45 | EXTERNAL MEDICAL SUMMARY RPT | Continuity of Care Document ---
:1960 Demographics Phone Unavailable Preferred Language Unknown Marital Status Unknown Jehovah'S Witness Affiliation Unknown Race Unknown Ethnic Group Unknown Author Organization [place] Address [address] [phone] Phone Problems date description facility [id number] [facility] [id number] upper GIB, liver failure [facility]
[2021-01-26 10:54] LABS: BASOPHILS % (AUTO) 0.4 %; EOSINOPHILS # (AUTO) 0.1 10^3/uL (0.0-0.7); EOSINOPHILS % (AUTO) 0.6 %; HCT - HEMATOCRIT 37.3 % (37.0-47.0); LYMPHOCYTES # (AUTO) 0.9 10^3/uL (1.5-3.5); LYMPHOCYTES % (AUTO) 8.8 %; MEAN CORPUSCULAR HEMOGLOBIN 34.7 pg (27.0-31.0); MEAN CORPUSCULAR HGB CONC 32.2 g/dL (32.0-36.0); MEAN CORPUSCULAR VOLUME 107.8 fL (81.0-99.0); MEAN PLATELET VOLUME 10.6 fL (7.9-10.8); MONOCYTES % (AUTO) 9.7 %; NEUTROPHILS # (AUTO) 8.2 10^3/uL (1.5-6.6); NEUTROPHILS % (AUTO) 79.9 %; PLT - PLATELET COUNT 138 10^3/uL (130-450); RED BLOOD COUNT 3.46 10^6/uL (4.20-5.40); RED CELL DISTRIBUTION WIDTH 16.9 % (12.0-15.0); WHITE BLOOD COUNT 10.2 x10^3/uL (4.8-10.8)
[2021-01-26 10:55] LABS: VBG BASE EXCESS 0.1 mmol/L (-2 - +2); VBG HCO3 22.5 mmol/L (23-28); VBG OXYGEN SATURATION 91.5 % (60-80); VBG PCO2 30.1 mmHg (41-51); VBG PH 7.491 (7.31-7.41); VBG PO2 60.5 mmHg (25-47); VBG TOTAL CO2 23.4 mmol/L (24-29)
[2021-01-26 11:13] LABS: ALBUMIN 1.9 g/dL (3.2-5.5); ALBUMIN/GLOBULIN RATIO 0.4 (1.0-2.2); BILIRUBIN,TOTAL 7.8 mg/dL (0.2-1.0); CALCIUM 8.1 mg/dL (8.5-10.3); CREATININE 0.5 mg/dL (0.4-1.0); POTASSIUM 4.9 mmol/L (3.5-5.0); TOTAL PROTEIN 6.2 g/dL (6.7-8.2)
[2021-01-26 12:11] LABS: GLUCOSE, URINE (UA) NEGATIVE (NEGATIVE); KETONES,URINE (UA) NEGATIVE (NEGATIVE); LEUKOCYTE ESTERASE, URINE NEGATIVE (NEGATIVE); NITRITE,URINE NEGATIVE (NEGATIVE); OCCULT BLOOD,URINE LARGE (NEGATIVE); PH,URINE 6.5 PH (5.0-7.5); PROTEIN,URINE NEGATIVE (NEGATIVE); UROBILINOGEN,URINE 1 (NORMAL) E.U./dL (NORMAL)
[2021-01-26 12:15] LABS: CLARITY,URINE HAZY (CLEAR)
[2021-01-26 12:19] LABS: ICTOTEST,URINE POSITIVE
--- NOTE | 2021-01-26 12:19 | XRAY Report ---
PROCEDURE: Chest 1 View X-Ray INDICATIONS: Hiatal hernia, right pleural effusion TECHNIQUE: One view of the chest was acquired. COMPARISON: 01/14/2021 FINDINGS: Surgical changes and devices: None. Lungs and pleura: Slight decrease in size of small-moderate right pleural effusion. Overlying airspac e opacity again noted. The left lung and pleural space are clear. Mediastinum: Mediastinal contours appear normal. Heart size is normal. Bones and chest wall: No suspicious bony lesions. Overlying soft tissues appear unremarkable. IMPRESSION: Mild decrease in size of small-moderate right pleural effusion. Reviewed by: Zhen Richard MD on 01/26/2021 12:17 PM PDT Approved by: Zhen Richard MD on 01/26/2021 12:17 PM PDT Station ID: [id number]
[2021-01-26 12:20] LABS: BILIRUBIN,URINE MODERATE (NEGATIVE)
[2021-01-26 12:36] LABS: WBC,URINE 0-3 /HPF (0-5)
[2021-01-26 12:37] LABS: BACTERIA,URINE Few /HPF (None Seen); RBC,URINE TNTC /HPF (0-5); SQUAMOUS EPITHELIAL CELL,UR MOD Squamous (<= Few)
[2021-01-26] MEDS ORDERED: oxyCODONE 5 MG TABLET PO STA (12:52)
--- NOTE | 2021-01-26 12:55 | ED Physician Documentation ---
History of Present Illness - Stated complaint Stated Complaint: SOA/ABD PX - Chief complaint Chief Complaint: Resp - History obtained from History obtained from: Patient - Additonal information Additional information: 60-year-old woman with history of alcoholic cirrhosis, right pleural effusion scheduled for thoracentesis this Tuesday, presents with shortness of breath this morning that she attributes to anxiety.Patient denies cough, fever, nausea vomiting, diarrhea, chest pain, leg swelling. She also states that she had a hiatal hernia and she is concerned that it tore After coughing this morning. Review of Systems Ten Systems: 10 systems reviewed and negative Constitutional: denies: Fever, Chills Respiratory: denies: Dyspnea, Cough GI: reports: Abdominal Pain (EPIGASTtric abd discomfort). 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 : Nocturia HEENT: Chronic sinusitis Psych: Depression, Anxiety, ADD/ADHD, Post traumatic stress disorder Musculoskeletal: Osteoarthritis, Chronic back pain Derm: None - Past Surgical History Past Surgical History: Yes General: Other Ortho: Other /CUSTOMER SERVICE SPECIALIST: Tubal ligation, Breast implants HEENT: Other - Present Medications Home Medications: Ambulatory Orders Medication Instructions Recorded Confirmed Multivitamin [Multiple Vitamins] 1 each PO DAILY #10 tablet 09/22/18 01/26/21 Pantoprazole [Protonix] 40 mg PO BID #30 tablet 03/03/19 01/26/21 Gabapentin [Neurontin] 400 mg PO QID 07/19/20 01/26/21 Lactulose [Generlac] 30 gm PO DAILY 07/19/20 01/26/21 Lipase/Protease/Amylase [Creon Dr 1 each PO TIDWM 07/19/20 01/26/21 12,000 Units Capsule] busPIRone [Buspar] 5 mg PO TID 07/19/20 01/26/21 Pnv No.95/Ferrous Fum/Folic AC 1 each PO DAILY #30 tablet 07/30/20 01/26/21 [ Tablet] Furosemide [Lasix] 40 mg PO DAILY 01/08/21 01/26/21 Spironolactone [Aldactone] 100 mg PO DAILY 01/08/21 01/26/21 Sertraline [Zoloft] 1 tab PO DAILY 01/26/21 01/26/21 hydrOXYzine HCL [Hydroxyzine HCl] 25 mg PO Q6H PRN #30 tablet 01/26/21 - Allergies Allergies/Adverse Reactions: Allergies Allergy/AdvReac Type Severity Reaction Status Date / Time ketorolac tromethamine * Allergy Severe Hives Verified 01/26/21 10:13 [From Toradol] - Social History Does the pt smoke?: No Smoking Status: Former smoker Does the pt drink ETOH?: No Does the pt have substance abuse?: No - Immunizations Immunizations are current?: No Immunizations: TDAP >10years/unknown - POLST Patient has POLST: No POLST Status: Full Code PD ED PE NORMAL - Vitals Vital signs reviewed: Yes - General General: Alert and oriented X 3, No acute distress, Well developed/nourished - HEENT HEENT: Atraumatic, PERRL, EOMI - Neck Neck: Supple, no meningeal sign - Cardiac Cardiac: RRR - Respiratory Respiratory: No respiratory distress, Clear bilaterally - Abdomen Abdomen: Non tender, Non distended, Other (discomfort with epigastric palpation) - Derm Derm: Normal color - Extremities Extremities: No deformity - Neuro Neuro: Alert and oriented X 3 - Psych Psych: Normal mood, Normal affect Results - Vitals Vitals: Vital Signs - 24 hr 01/26/21 01/26/21 01/26/21 10:15 11:31 12:16 Temperature 37 C Heart Rate 84 81 86 Respiratory 24 19 16 Rate Blood Pressure 123/102 H 116/57 L 98/54 L O2 Saturation 100 98 96 Oxygen O2 Source Room air - Labs Labs: Laboratory Tests 01/26/21 01/26/21 01/26/21 10:47 10:47 10:47 WBC 10.2 RBC 3.46 L Hgb 12.0 Hct 37.3 MCV 107.8 H MCH 34.7 H MCHC 32.2 RDW 16.9 H Plt Count 138 MPV 10.6 Neut # (Auto) 8.2 H Lymph # (Auto) 0.9 L [place] # (Auto) 1.0 Eos # (Auto) 0.1 Baso # (Auto) 0.0 Absolute Nucleated RBC 0.00 Nucleated RBC % 0.0 VBG pH VBG pCO2 VBG pO2 VBG HCO3 VBG Total CO2 VBG O2 Saturation VBG Base Excess Sodium 129 L Potassium 4.9 Chloride 101 Carbon Dioxide 22 Anion Gap 6.0 BUN 19 Creatinine 0.5 Estimated GFR (MDRD) 126 Glucose 110 H Calcium 8.1 L Total Bilirubin 7.8 H AST 137 H ALT 54 Alkaline Phosphatase 181 H Troponin I High Sens B-Natriuretic Peptide 81 Total Protein 6.2 L Albumin 1.9 L Globulin 4.3 H Albumin/Globulin Ratio 0.4 L Lipase 119 H Urine Color Urine Clarity Urine pH Ur Specific [place] Urine Protein Urine Glucose (UA) Urine Ketones Urine Occult Blood Urine Nitrite Urine Bilirubin Urine Urobilinogen Ur Leukocyte Esterase Urine RBC Urine WBC Ur Squamous Epith Cells Urine Bacteria Ur Microscopic Review Urine Culture Comments 01/26/21 01/26/21 01/26/21 10:47 10:47 11:25 WBC RBC Hgb Hct MCV MCH MCHC RDW Plt Count MPV Neut # (Auto) Lymph # (Auto) [place] # (Auto) Eos # (Auto) Baso # (Auto) Absolute Nucleated RBC Nucleated RBC % VBG pH 7.491 H VBG pCO2 30.1 L VBG pO2 60.5 H VBG HCO3 22.5 L VBG Total CO2 23.4 L VBG O2 Saturation 91.5 H VBG Base Excess 0.1 Sodium Potassium Chloride Carbon Dioxide Anion Gap BUN Creatinine Estimated GFR (MDRD) Glucose Calcium Total Bilirubin AST ALT Alkaline Phosphatase Troponin I High Sens 6.5 B-Natriuretic Peptide Total Protein Albumin Globulin Albumin/Globulin Ratio Lipase Urine Color DARK YELLOW Urine Clarity HAZY Urine pH 6.5 Ur Specific [place] 1.020 Urine Protein NEGATIVE Urine Glucose (UA) NEGATIVE Urine Ketones NEGATIVE Urine Occult Blood LARGE H Urine Nitrite NEGATIVE Urine Bilirubin MODERATE H Urine Urobilinogen 1 (NORMAL) Ur Leukocyte Esterase NEGATIVE Urine RBC TNTC H Urine WBC 0-3 Ur Squamous Epith Cells MOD Squamous H Urine Bacteria Few Ur Microscopic Review INDICATED Urine Culture Comments NOT INDICATED PD MEDICAL DECISION MAKING - ED course ED course: X-ray and lab work nonfocal. Discussed with patient who understands that given her normal physical exam she likely does not have a ruptured hernia. She is requesting an IV pain medication. I advised her that I can give her oral medication but cannot give her prescription. She is having her boyfriend pick her up. She also is requesting something for anxiety therefore I am giving a prescription for Atarax. Return precautions given. Patient will follow up for thoracentesis this Tuesday. Departure - Departure Disposition: 01 Home, Self Care Clinical Impression: Anxiety attack, Pleural effusion, Shortness of breath Condition: Good Instructions: ED Effusion Pleural Prescriptions: hydrOXYzine HCL [Hydroxyzine HCl] 25 mg PO Q6H PRN #30 tablet PRN Reason: Anxiety Comments: You are seen in the emergency department for shortness of breath and an anxiety attack. Your x-ray looks better than it did previously. Please follow-up for thoracentesis this tuesday. Return the emergency department if you have any new or worsening symptoms or other concerns.
[2021-01-26 13:00] VITALS: BP 109/63
== END 2021-01-26 13:10 | disposition home or self-care (01) ==
LOC: ED 10:05
DX: F41.9 Anxiety disorder, unspecified (principal); J90 Pleural effusion, not elsewhere classified; R06.02 Shortness of breath; R10.13 Epigastric pain; K70.30 Alcoholic cirrhosis of liver without ascites; Z87.891 Personal history of nicotine dependence
CPT/HCPCS: 36415; 71045; 80053; 81001; 82803; 83690; 83880; 84484; 85025; 99283; 99284; A9270; 81003; 87086

== ENCOUNTER 2021-01-30 13:08 | Outpatient (CLI) | payer MEDICAID ==
[2021-01-30 13:51] LABS: BILIRUBIN,DIRECT 3.9 mg/dL (0.1-0.5); BILIRUBIN,TOTAL 7.7 mg/dL (0.2-1.0); TOTAL PROTEIN 6.8 g/dL (6.7-8.2)
== END 2021-01-30 13:09 | disposition home or self-care (01) ==
LOC: DI 13:08
PROVIDERS: ATTEND Internal Medicine
DX: J94.8 Other specified pleural conditions (principal); K70.30 Alcoholic cirrhosis of liver without ascites
CPT/HCPCS: 36415; 80053; 80076; 81599; 85025; 85610; 87070; 87205; 89051

== ENCOUNTER 2021-05-02 18:30 | Outpatient (CLI) | payer MEDICAID | END 2021-05-02 18:31 | disposition critical access hospital (66) | LOC: EMS 18:30 | DX: R45.851 Suicidal ideations (principal) | CPT/HCPCS: A0425; A0429; A0999 ==

== ENCOUNTER 2021-05-02 18:40 | Emergency (ER) | payer MEDICAID ==
[2021-05-02 19:03] LABS: BASOPHILS % (AUTO) 0.7 %; EOSINOPHILS # (AUTO) 0.1 10^3/uL (0.0-0.7); EOSINOPHILS % (AUTO) 2.6 %; HCT - HEMATOCRIT 35.6 % (37.0-47.0); HGB - HEMOGLOBIN 11.8 g/dL (12.0-16.0); LYMPHOCYTES # (AUTO) 1.4 10^3/uL (1.5-3.5); LYMPHOCYTES % (AUTO) 32.2 %; MEAN CORPUSCULAR HGB CONC 33.1 g/dL (32.0-36.0); MEAN CORPUSCULAR VOLUME 90.6 fL (81.0-99.0); MEAN PLATELET VOLUME 10.9 fL (7.9-10.8); MONOCYTES # (AUTO) 0.4 10^3/uL (0.0-1.0); MONOCYTES % (AUTO) 9.5 %; NEUTROPHILS # (AUTO) 2.3 10^3/uL (1.5-6.6); NEUTROPHILS % (AUTO) 54.8 %; PLT - PLATELET COUNT 108 10^3/uL (130-450); RED BLOOD COUNT 3.93 10^6/uL (4.20-5.40); RED CELL DISTRIBUTION WIDTH 15.4 % (12.0-15.0); WHITE BLOOD COUNT 4.2 x10^3/uL (4.8-10.8)
[2021-05-02 19:07] LABS: MUDS CUTOFF CONCENTRATIONS CUTOFF CONC BELOW:
[2021-05-02 19:08] LABS: BILIRUBIN,URINE NEGATIVE (NEGATIVE); GLUCOSE, URINE (UA) NEGATIVE (NEGATIVE); KETONES,URINE (UA) NEGATIVE (NEGATIVE); LEUKOCYTE ESTERASE, URINE NEGATIVE (NEGATIVE); NITRITE,URINE NEGATIVE (NEGATIVE); OCCULT BLOOD,URINE LARGE (NEGATIVE); PROTEIN,URINE TRACE mg/dL (NEGATIVE); UROBILINOGEN,URINE 4 E.U./dL (NORMAL)
[2021-05-02 19:09] LABS: CLARITY,URINE HAZY (CLEAR)
[2021-05-02 19:22] LABS: AMPHETAMINE SCREEN,URINE NEGATIVE (NEGATIVE); BACTERIA,URINE Moderate /HPF (None Seen); BARBITURATE SCREEN,UR NEGATIVE (NEGATIVE); BENZODIAZEPINES SCREEN, URINE NEGATIVE (NEGATIVE); COCAINE SCREEN URINE NEGATIVE (NEGATIVE); METHADONE SCREEN, URINE NEGATIVE (NEGATIVE); METHAMPHETAMINES SCREEN, URINE NEGATIVE (NEGATIVE); OPIATE SCREEN, URINE NEGATIVE (NEGATIVE); OXYCODONE SCREEN, URINE NEGATIVE (NEGATIVE); PROPOXYPHENE SCREEN, URINE NEGATIVE (NEGATIVE); SQUAMOUS EPITHELIAL CELL,UR FEW Squamous (<= Few); THC CANNABINOID SCREEN, URINE NEGATIVE (NEGATIVE); TRICYCLIC ANTIDEPRESSANT,URINE NEGATIVE (NEGATIVE); WBC,URINE 0-3 /HPF (0-5)
[2021-05-02 19:25] LABS: ACETAMINOPHEN < 10 ug/mL (10-30); ALBUMIN 3.3 g/dL (3.2-5.5); ALBUMIN/GLOBULIN RATIO 0.8 (1.0-2.2); ALKALINE PHOSPHATASE 135 IU/L (42-121); ALT ALANINE AMINOTRANSFERASE 30 IU/L (10-60); AST ASPARTATE AMINOTRANSFERASE 90 IU/L (10-42); BILIRUBIN,TOTAL 2.8 mg/dL (0.2-1.0); BUN - BLOOD UREA NITROGEN 13 mg/dL (6-20); CALCIUM 9.4 mg/dL (8.5-10.3); CARBON DIOXIDE - CO2 24 mmol/L (21-32); CHLORIDE 102 mmol/L (101-111); CREATININE 0.4 mg/dL (0.4-1.0); GFR - MDRD 163 (>89); GLUCOSE 126 mg/dL (70-100); LIPASE 60 U/L (22-51); POTASSIUM 3.8 mmol/L (3.5-5.0); SALICYLATE < 6.0 mg/dL; SODIUM 140 mmol/L (135-145); TOTAL PROTEIN 7.4 g/dL (6.7-8.2)
[2021-05-02] MEDS ORDERED: FOLIC ACID INJ 1 MG, THIAMINE INJ 100 MG, MAGNESIUM SULFATE 2 GM, MULTIVITAMIN 10 ML in... IV STA ×5 (19:39)
[2021-05-02] MEDS ORDERED: THIAMINE 100 MG/1 ML 2 ML MDV ONE (19:46)
[2021-05-02] MEDS ORDERED: MAGNESIUM SULFATE 1 GM/2 ML VIAL ONE (19:46)
[2021-05-02 20:11] LABS: INR 1.6 (0.8-1.2); PT - PROTHROMBIN TIME 16.9 secs (9.9-12.6)
[2021-05-02 20:18] LABS: PARTIAL THROMBOPLASTIN TIME 40.2 secs (24.9-33.3)
[2021-05-02 20:24] LABS: B. PARAPERTUSSIS- RESP PCR PAN NOT DETECTED; B. PERTUSSIS- RESP PCR PANEL NOT DETECTED; C. PNEUMONIAE- RESP PCR PANEL NOT DETECTED; CORONAVIRUS 229E-RESP PCR NOT DETECTED; CORONAVIRUS HKU1-RESP PCR NOT DETECTED; CORONAVIRUS NL63-RESP PCR NOT DETECTED; CORONAVIRUS OC43-RESP PCR NOT DETECTED; HUMAN METAPNEUMOVIRUS NOT DETECTED; INFLUENZA A- RESP PCR PANEL NOT DETECTED; INFLUENZA B - RESP PCR PANEL NOT DETECTED; M. PNEUMONIAE- RESP PCR PANEL NOT DETECTED; PARAINFLUENZA VIRUS 1 NOT DETECTED; PARAINFLUENZA VIRUS 2 NOT DETECTED; PARAINFLUENZA VIRUS 3 NOT DETECTED; PARAINFLUENZA VIRUS 4 NOT DETECTED; RHINOVIRUS/ENTEROVIRUS NOT DETECTED; RSV- RESP PCR PANEL NOT DETECTED; SARS-CoV-2 -RESP PCR PANEL NOT DETECTED
--- NOTE | 2021-05-02 22:25 | ED Physician Documentation ---
PD HPI MHE - Stated complaint Stated Complaint: SI - Chief complaint Chief Complaint: MHE - History obtained from History obtained from: Patient, EMS - History of Present Illness Primary symptom: Suicidal ideation Timing - onset: Today Pain level max: 0 Pain level now: 0 Contributing factors: Substance abuse - ETOH - Additional information Additional information: Patient is a 60-year-old female with a longstanding history of alcoholism. She states she had quit drinking alcohol for 5 months and then recently started drinking again. She states she is drinking alcohol during the day and night. Usually wine during the day and vodka at night. She states that she feels very disappointed in herself and so she felt like killing herself tonight. She states she is going to place her head in the oven and slit her wrist with a [place] [employer] knife. Patient states that she has not been taking her lactulose or other medications for the past few days. Review of Systems Ten Systems: 10 systems reviewed and negative Constitutional: denies: Fever Nose: denies: Rhinorrhea / runny nose, Congestion Respiratory: denies: Cough GI: reports: Abdominal Pain (Chronic abdominal pain.). 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 AIDE: None : Nocturia HEENT: Chronic sinusitis Psych: Depression, Anxiety, ADD/ADHD, Post traumatic stress disorder Musculoskeletal: Osteoarthritis, Chronic back pain Derm: None - Past Surgical History Past Surgical History: Yes General: Other Ortho: Other /CITY PLANNING AIDE: Tubal ligation, Breast implants HEENT: Other - Present Medications Home Medications: Ambulatory Orders Medication Instructions Recorded Confirmed Multivitamin [Multiple Vitamins] 1 each PO DAILY #10 tablet 09/22/18 05/02/21 Pantoprazole [Protonix] 40 mg PO BID #30 tablet 03/03/19 05/02/21 Gabapentin [Neurontin] 400 mg PO QID 07/19/20 05/02/21 Lactulose [Generlac] 30 gm PO DAILY 07/19/20 05/02/21 Lipase/Protease/Amylase [Creon Dr 1 each PO TIDWM 07/19/20 05/02/21 12,000 Units Capsule] busPIRone [Buspar] 5 mg PO TID 07/19/20 05/02/21 Pnv No.95/Ferrous Fum/Folic AC 1 each PO DAILY #30 tablet 07/30/20 05/02/21 [ Tablet] Furosemide [Lasix] 40 mg PO DAILY 01/08/21 05/02/21 Spironolactone [Aldactone] 100 mg PO DAILY 01/08/21 05/02/21 Sertraline [Zoloft] 1 tab PO DAILY 01/26/21 05/02/21 hydrOXYzine HCL [Hydroxyzine HCl] 25 mg PO Q6H PRN #30 tablet 01/26/21 05/02/21 - Allergies Allergies/Adverse Reactions: Allergies Allergy/AdvReac Type Severity Reaction Status Date / Time ketorolac tromethamine * Allergy Severe Hives Verified 05/02/21 18:48 [From Toradol] - Social History Does the pt smoke?: No Smoking Status: Never smoker Does the pt drink ETOH?: No Does the pt have substance abuse?: No - Immunizations Immunizations are current?: No Immunizations: TDAP >10years/unknown - POLST Patient has POLST: No POLST Status: Full Code PD ED PE NORMAL - Vitals Vital signs reviewed: Yes - General General: Alert and oriented X 3, No acute distress - HEENT HEENT: Moist mucous membranes - Neck Neck: Supple, no meningeal sign - Cardiac Cardiac: RRR - Respiratory Respiratory: No respiratory distress, Clear bilaterally - Abdomen Abdomen: Soft, Non tender, Non distended - Back Back: No CVA TTP, No spinal TTP - Derm Derm: Warm and dry - Extremities Extremities: No edema, No calf tenderness / cord - Neuro Neuro: Alert and oriented X 3 Results - Vitals Vitals: Vital Signs - 24 hr 05/02/21 05/02/21 18:48 19:12 Temperature 36.3 C L 36.4 C L Heart Rate 74 75 Respiratory 16 16 Rate Blood Pressure 118/96 H 119/89 H O2 Saturation 96 96 Oxygen O2 Source Room air - EKG (time done) 1904 Rate: Rate (enter#) (71) Rhythm: NSR [place]: Anterior hemiblock (LAFB) Intervals: Normal [place] QRS: Normal Ischemia: Normal ST segments Other comments: Other comments (Manual QTc is 435 ms) - Labs Labs: Laboratory Tests 05/02/21 05/02/21 05/02/21 18:55 18:58 18:58 WBC 4.2 L RBC 3.93 L Hgb 11.8 L Hct 35.6 L MCV 90.6 MCH 30.0 MCHC 33.1 RDW 15.4 H Plt Count 108 L MPV 10.9 H Neut # (Auto) 2.3 Lymph # (Auto) 1.4 L [place] # (Auto) 0.4 Eos # (Auto) 0.1 Baso # (Auto) 0.0 Absolute Nucleated RBC 0.00 Nucleated RBC % 0.0 PT INR APTT Sodium 140 Potassium 3.8 Chloride 102 Carbon Dioxide 24 Anion Gap 14.0 H BUN 13 Creatinine 0.4 Estimated GFR (MDRD) 163 Glucose 126 H Calcium 9.4 Total Bilirubin 2.8 H AST 90 H ALT 30 Alkaline Phosphatase 135 H Ammonia Total Protein 7.4 Albumin 3.3 Globulin 4.1 Albumin/Globulin Ratio 0.8 L Lipase 60 H TSH Urine Color YELLOW Urine Clarity HAZY Urine pH 6.0 Ur Specific [place] 1.020 Urine Protein TRACE Urine Glucose (UA) NEGATIVE Urine Ketones NEGATIVE Urine Occult Blood LARGE H Urine Nitrite NEGATIVE Urine Bilirubin NEGATIVE Urine Urobilinogen 4 H Ur Leukocyte Esterase NEGATIVE Urine RBC 11-25 H Urine WBC 0-3 Ur Squamous Epith Cells FEW Squamous Urine Bacteria Moderate H Ur Microscopic Review INDICATED Urine Culture Comments NOT INDICATED Nasal Adenovirus (PCR) Nasal B. parapertussis DNA (PCR) Nasal Coronavir 229E PCR Nasal Coronavir HKU1 PCR Nasal Coronavir NL63 PCR Nasal Coronavir OC43 PCR Nasal Enterovir/Rhinovir PCR Nasal Influenza B PCR Nasal Influenza A PCR Nasal Parainfluen 1 PCR Nasal Parainfluen 2 PCR Nasal Parainfluen 3 PCR Nasal Parainfluen 4 PCR Nasal RSV (PCR) Nasal B.pertussis DNA PCR Nasal C.pneumoniae (PCR) [place] Human Metapneumo PCR Nasal M.pneumoniae (PCR) Nasal SARS-CoV-2 (PCR) Salicylates < 6.0 Urine Opiates Screen NEGATIVE Ur Oxycodone Screen NEGATIVE Urine Methadone Screen NEGATIVE Ur Propoxyphene Screen NEGATIVE Acetaminophen < 10 L Ur Barbiturates Screen NEGATIVE Ur Tricyclics Screen NEGATIVE Ur Phencyclidine Scrn NEGATIVE Ur Amphetamine Screen NEGATIVE U Methamphetamines Scrn NEGATIVE U Benzodiazepines Scrn NEGATIVE Urine Cocaine Screen NEGATIVE U Cannabinoids Screen NEGATIVE Ethyl Alcohol 251.0 05/02/21 05/02/21 05/02/21 18:58 19:10 19:58 WBC RBC Hgb Hct MCV MCH MCHC RDW Plt Count MPV Neut # (Auto) Lymph # (Auto) [place] # (Auto) Eos # (Auto) Baso # (Auto) Absolute Nucleated RBC Nucleated RBC % PT 16.9 H INR 1.6 H APTT 40.2 H Sodium Potassium Chloride Carbon Dioxide Anion Gap BUN Creatinine Estimated GFR (MDRD) Glucose Calcium Total Bilirubin AST ALT Alkaline Phosphatase Ammonia Total Protein Albumin Globulin Albumin/Globulin Ratio Lipase TSH 1.89 Urine Color Urine Clarity Urine pH Ur Specific [place] Urine Protein Urine Glucose (UA) Urine Ketones Urine Occult Blood Urine Nitrite Urine Bilirubin Urine Urobilinogen Ur Leukocyte Esterase Urine RBC Urine WBC Ur Squamous Epith Cells Urine Bacteria Ur Microscopic Review Urine Culture Comments Nasal Adenovirus (PCR) NOT DETECTED Nasal B. parapertussis DNA (PCR) NOT DETECTED Nasal Coronavir 229E PCR NOT DETECTED Nasal Coronavir HKU1 PCR NOT DETECTED Nasal Coronavir NL63 PCR NOT DETECTED Nasal Coronavir OC43 PCR NOT DETECTED Nasal Enterovir/Rhinovir PCR NOT DETECTED Nasal Influenza B PCR NOT DETECTED Nasal Influenza A PCR NOT DETECTED Nasal Parainfluen 1 PCR NOT DETECTED Nasal Parainfluen 2 PCR NOT DETECTED Nasal Parainfluen 3 PCR NOT DETECTED Nasal Parainfluen 4 PCR NOT DETECTED Nasal RSV (PCR) NOT DETECTED Nasal B.pertussis DNA PCR NOT DETECTED Nasal C.pneumoniae (PCR) NOT DETECTED [place] Human Metapneumo PCR NOT DETECTED Nasal M.pneumoniae (PCR) NOT DETECTED Nasal SARS-CoV-2 (PCR) NOT DETECTED Salicylates Urine Opiates Screen Ur Oxycodone Screen Urine Methadone Screen Ur Propoxyphene Screen Acetaminophen Ur Barbiturates Screen Ur Tricyclics Screen Ur Phencyclidine Scrn Ur Amphetamine Screen U Methamphetamines Scrn U Benzodiazepines Scrn Urine Cocaine Screen U Cannabinoids Screen Ethyl Alcohol 05/02/21 19:58 WBC RBC Hgb Hct MCV MCH MCHC RDW Plt Count MPV Neut # (Auto) Lymph # (Auto) [place] # (Auto) Eos # (Auto) Baso # (Auto) Absolute Nucleated RBC Nucleated RBC % PT INR APTT Sodium Potassium Chloride Carbon Dioxide Anion Gap BUN Creatinine Estimated GFR (MDRD) Glucose Calcium Total Bilirubin AST ALT Alkaline Phosphatase Ammonia 31.6 Total Protein Albumin Globulin Albumin/Globulin Ratio Lipase TSH Urine Color Urine Clarity Urine pH Ur Specific [place] Urine Protein Urine Glucose (UA) Urine Ketones Urine Occult Blood Urine Nitrite Urine Bilirubin Urine Urobilinogen Ur Leukocyte Esterase Urine RBC Urine WBC Ur Squamous Epith Cells Urine Bacteria Ur Microscopic Review Urine Culture Comments Nasal Adenovirus (PCR) Nasal B. parapertussis DNA (PCR) Nasal Coronavir 229E PCR Nasal Coronavir HKU1 PCR Nasal Coronavir NL63 PCR Nasal Coronavir OC43 PCR Nasal Enterovir/Rhinovir PCR Nasal Influenza B PCR Nasal Influenza A PCR Nasal Parainfluen 1 PCR Nasal Parainfluen 2 PCR Nasal Parainfluen 3 PCR Nasal Parainfluen 4 PCR Nasal RSV (PCR) Nasal B.pertussis DNA PCR Nasal C.pneumoniae (PCR) [place] Human Metapneumo PCR Nasal M.pneumoniae (PCR) Nasal SARS-CoV-2 (PCR) Salicylates Urine Opiates Screen Ur Oxycodone Screen Urine Methadone Screen Ur Propoxyphene Screen Acetaminophen Ur Barbiturates Screen Ur Tricyclics Screen Ur Phencyclidine Scrn Ur Amphetamine Screen U Methamphetamines Scrn U Benzodiazepines Scrn Urine Cocaine Screen U Cannabinoids Screen Ethyl Alcohol PD MEDICAL DECISION MAKING - ED course Complexity details: reviewed results, re-evaluated patient, considered differential, d/w patient ED course: Patient is intoxicated in the emergency department and suicidal. She will be signed out to the [facility] emergency department physician for repeat evaluation when she is sober. Given a banana bag here. This document was made in part using voice recognition software. While efforts are made to proofread this document, sound alike and grammatical errors may occur. Departure - Departure Clinical Impression: Alcoholism, Thrombocytopenia, Suicidal ideation Alcohol intoxication Qualifiers: Complication of substance-induced condition: uncomplicated Qualified Code(s): F10.920 - Alcohol use, unspecified with intoxication, uncomplicated Condition: Stable
--- NOTE | 2021-05-03 00:40 | ED Physician Documentation ---
ED Addendum - Addendum Addendum: 05/03/21 00:39 Note that Ms. Jones requested to go home, stating she is no longer suicidal and "I could do this at home". I agreed since she is now clinically sober and denies SI/HI/AVH she can be discharged, but she does not have a ride. does endorse anxiety and has a mild tremor therefore I will provide low dose ativan. Okay to d/c 1:1 observation. 05/03/21 00:43 05/03/21 07:[address] Diaz for social work eval.
[2021-05-03] MEDS ORDERED: LORazepam 0.5 MG TABLET PO STA ×2 (00:41→00:43)
[2021-05-03] MEDS ORDERED: LORazepam 2 MG/ML VIAL IVP STA ×2 (08:50→09:18)
--- NOTE | 2021-05-03 08:54 | ED Physician Documentation ---
ED Addendum - Addendum Addendum: 05/03/21 08:53 60-year-old female alcoholic with end-stage liver disease has had prior TIPS procedure done she has been sober for 5 months and she has started drinking again 1 week ago. She states when she drinks she drinks 24 hours a day. She feels that she will have some issue with withdrawal and feels it would likely be brief. She came into the emergency department last night feeling suicidal while she was intoxicated. She has no longer intoxicated denies suicidal ideation w ould like to go home has a support person at home will come and pick her up. I discussed with the patient treatment of her withdrawal symptoms and I provided a prescription for 11 pills of Librium.
[2021-05-03] MEDS ORDERED: LORazepam 1 MG TABLET PO STA (09:17)
[2021-05-03 09:43] VITALS: BP 123/59
== END 2021-05-03 09:42 | disposition home or self-care (01) ==
LOC: EDUNIT# → ED 18:40
DX: F10.229 Alcohol dependence with intoxication, unspecified (principal); R45.851 Suicidal ideations; K70.9 Alcoholic liver disease, unspecified; D69.6 Thrombocytopenia, unspecified; F41.9 Anxiety disorder, unspecified; I44.4 Left anterior fascicular block; Z20.822 Contact with and (suspected) exposure to COVID-19
CPT/HCPCS: 0202U; 36415; 80053; 80306; 80307; 80320; 80329; 81001; 82140; 83690; 84443; 85025; 85610; 85730; 93005; 96365; 96375; 99284; 99285; A9270; J2060; J3411; 81003; 87086

== ENCOUNTER 2021-05-09 21:45 | Outpatient (CLI) | payer MEDICAID | END 2021-05-09 23:59 | disposition critical access hospital (66) | LOC: EMS 21:45 | DX: S05.40XA Penetrating wound of orbit with or without foreign body, unspecified eye, initial encounter (principal); S20.224A Contusion of middle back wall of thorax, initial encounter; S20.02XA Contusion of left breast, initial encounter; W10.9XXA Fall (on) (from) unspecified stairs and steps, initial encounter; Y92.009 Unspecified place in unspecified non-institutional (private) residence as the place of occurrence of the external cause; M54.5 Low back pain; R20.0 Anesthesia of skin | CPT/HCPCS: A0425; A0429; A0999 ==

== ENCOUNTER 2021-05-09 21:51 | Emergency (ER) | payer MEDICAID ==
--- NOTE | 2021-05-09 21:58 | ED Physician Documentation ---
PD HPI Fall - Stated complaint Stated Complaint: GLF/ HEAD INJ - Chief complaint Chief Complaint: Trauma Ch/Bk - History obtained from History obtained from: Patient - History of Present Illness Mechanism of injury: Unknown Fall distance: Standing position Where injury occurred: Home Timing - onset: Yesterday Injury(ies) location: Head Pain level now: 9 Quality of pain: Pain Associated symptoms: AMS, Amnesia, Weakness, Paresthesias Symptoms improve with: Nothing Worsens with: Movement Contributing factors: Intoxicated. No: Anticoagulated Recently seen: Emergency Dept (last week ()) - Additional information Additional information: BIBA. Patient well known to this ED with over 60 previous [facility] ED visits, most frequently for alcohol-related problems. Patient reportedly fell yesterday down stairs; this is per EMS, who obtained most of the information from patient's roommate, as patient also has AMS. After falling, patient crawled slowly back to her bed but did not get back into bed. EMS arrived to find patient on the floor leaning against the side of the bed with an empty bottle of wine at her side. Patient is reporting lack of sensation bilaterally from waist down. She also says to me that she feels her legs are weak ,as well. She has an odd affect on my HPI and provides inconsistent responses to questions as well as commands. She c/o pain "everywhere", mostly upper and lower back Review of Systems Unable to obtain: AMS, Intoxicated, Other (limited in reliability. 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 : Nocturia HEENT: Chronic sinusitis Psych: Depression, Anxiety, ADD/ADHD, Post traumatic stress disorder Musculoskeletal: Osteoarthritis, Chronic back pain Derm: None - Past Surgical History Past Surgical History: Yes General: Other Ortho: Other /VIDEO GAME REPAIR TECHNICIAN: Tubal ligation, Breast implants HEENT: Other - Present Medications Home Medications: Ambulatory Orders Medication Instructions Recorded Confirmed Multivitamin [Multiple Vitamins] 1 each PO DAILY #10 tablet 09/22/18 05/10/21 Pantoprazole [Protonix] 40 mg PO BID #30 tablet 03/03/19 05/10/21 Gabapentin [Neurontin] 400 mg PO QID 07/19/20 05/10/21 Lactulose [Generlac] 30 gm PO DAILY 07/19/20 05/10/21 Lipase/Protease/Amylase [Creon Dr 1 each PO TIDWM 07/19/20 05/10/21 12,000 Units Capsule] busPIRone [Buspar] 5 mg PO TID 07/19/20 05/10/21 Pnv No.95/Ferrous Fum/Folic AC 1 each PO DAILY #30 tablet 07/30/20 05/10/21 [ Tablet] Furosemide [Lasix] 40 mg PO DAILY 01/08/21 05/10/21 Spironolactone [Aldactone] 100 mg PO DAILY 01/08/21 05/10/21 Sertraline [Zoloft] 1 tab PO DAILY 01/26/21 05/10/21 hydrOXYzine HCL [Hydroxyzine HCl] 25 mg PO Q6H PRN #30 tablet 01/26/21 05/10/21 chlordiazePOXIDE [Librium] 25 mg PO Q6H PRN #11 05/03/21 05/10/21 - Allergies Allergies/Adverse Reactions: Allergies Allergy/AdvReac Type Severity Reaction Status Date / Time ketorolac tromethamine * Allergy Severe Hives Verified 05/09/21 22:01 [From Toradol] - Social History Does the pt smoke?: No Smoking Status: Never smoker Does the pt drink ETOH?: No Does the pt have substance abuse?: No - Immunizations Immunizations are current?: No Immunizations: TDAP >10years/unknown - POLST Patient has POLST: No POLST Status: Full Code PD ED PE NORMAL - Vitals Vital signs reviewed: Yes - General General: No acute distress, Well developed/nourished, Other (awake, alert, oriented to self but not to place nor time. speech is slurred) - HEENT HEENT: PERRL, EOMI, Other (4 cm laceration to midline/left occipital scalp) - Neck Neck: Other (cervical collar in place) - Cardiac Cardiac: RRR - Respiratory Respiratory: No respiratory distress, Other (diminished breath sounds right hemithorax ) - Abdomen Abdomen: Non tender, Non distended - Derm Derm: Other (scattered bruises (left breast, anterolateral neck, shoulders)) - Neuro Neuro: spa associate 2-12 intact Eye Opening: Spontaneous Motor: Obeys Commands Verbal: Confused GCS Score: 14 PD ED PE EXPANDED - Extremities Extremities: Other (BLE absent LTS (patient states she cannot feel any/all attempts at LTS from proximal thighs down)) - Neuro Neuro: Other (3/5 bilateral plantar/dorsiflexion. 3/5 bilateral field spec strength) Results - Vitals Vitals: Vital Signs - 24 hr 05/09/21 05/09/21 05/09/21 21:51 22:02 22:30 Temperature 36.2 C L 36.5 C Heart Rate 81 80 85 Respiratory 15 15 20 Rate Blood Pressure 111/69 109/70 146/72 H O2 Saturation 95 95 94 05/09/21 05/09/21 05/10/21 23:00 23:30 00:00 Temperature 36.5 C Heart Rate 78 77 80 Respiratory 18 18 18 Rate Blood Pressure 103/66 109/73 110/80 O2 Saturation 94 96 98 05/10/21 05/10/21 05/10/21 00:15 00:46 01:21 Temperature 36.4 C L 36.2 C L Heart Rate 79 75 75 Respiratory 15 13 14 Rate Blood Pressure 110/80 109/65 102/64 O2 Saturation 95 96 95 Oxygen O2 Source Room air - Labs Labs: Laboratory Tests 05/09/21 05/09/21 05/09/21 10:00 10:00 10:44 WBC 5.5 RBC 3.82 L Hgb 11.8 L Hct 35.2 L MCV 92.1 MCH 30.9 MCHC 33.5 RDW 16.1 H Plt Count 97 L MPV 11.1 H Neut # (Auto) 3.8 Lymph # (Auto) 1.1 L [place] # (Auto) 0.5 Eos # (Auto) 0.1 Baso # (Auto) 0.0 Absolute Nucleated RBC 0.00 Nucleated RBC % 0.0 PT 18.6 H INR 1.7 H APTT 44.6 H Sodium Potassium Chloride Carbon Dioxide Anion Gap BUN Creatinine Estimated GFR (MDRD) Glucose Calcium Total Bilirubin AST ALT Alkaline Phosphatase Ammonia 49.6 H Total Protein Albumin Globulin Albumin/Globulin Ratio Lipase Urine Color Urine Clarity Urine pH Ur Specific [place] Urine Protein Urine Glucose (UA) Urine Ketones Urine Occult Blood Urine Nitrite Urine Bilirubin Urine Urobilinogen Ur Leukocyte Esterase Urine RBC Urine WBC Ur Squamous Epith Cells Urine Bacteria Urine Mucus Ur Microscopic Review Urine Culture Comments Nasal Adenovirus (PCR) Nasal B. parapertussis DNA (PCR) Nasal Coronavir 229E PCR Nasal Coronavir HKU1 PCR Nasal Coronavir NL63 PCR Nasal Coronavir OC43 PCR Nasal Enterovir/Rhinovir PCR Nasal Influenza B PCR Nasal Influenza A PCR Nasal Parainfluen 1 PCR Nasal Parainfluen 2 PCR Nasal Parainfluen 3 PCR Nasal Parainfluen 4 PCR Nasal RSV (PCR) Nasal B.pertussis DNA PCR Nasal C.pneumoniae (PCR) [place] Human Metapneumo PCR Nasal M.pneumoniae (PCR) Nasal SARS-CoV-2 (PCR) Urine Opiates Screen Ur Oxycodone Screen Urine Methadone Screen Ur Propoxyphene Screen Ur Barbiturates Screen Ur Tricyclics Screen Ur Phencyclidine Scrn Ur Amphetamine Screen U Methamphetamines Scrn U Benzodiazepines Scrn Urine Cocaine Screen U Cannabinoids Screen Ethyl Alcohol 05/09/21 05/09/21 05/09/21 22:00 22:05 22:30 WBC RBC Hgb Hct MCV MCH MCHC RDW Plt Count MPV Neut # (Auto) Lymph # (Auto) [place] # (Auto) Eos # (Auto) Baso # (Auto) Absolute Nucleated RBC Nucleated RBC % PT INR APTT Sodium 138 Potassium 3.8 Chloride 103 Carbon Dioxide 20 L Anion Gap 15.0 H BUN 10 Creatinine 0.5 Estimated GFR (MDRD) 126 Glucose 116 H Calcium 8.0 L Total Bilirubin 3.7 H AST 65 H ALT 27 Alkaline Phosphatase 128 H Ammonia Total Protein 7.3 Albumin 3.6 Globulin 3.7 Albumin/Globulin Ratio 1.0 Lipase 39 Urine Color DARK YELLOW Urine Clarity HAZY Urine pH 6.0 Ur Specific [place] 1.025 Urine Protein NEGATIVE Urine Glucose (UA) NEGATIVE Urine Ketones NEGATIVE Urine Occult Blood LARGE H Urine Nitrite NEGATIVE Urine Bilirubin NEGATIVE Urine Urobilinogen 1 (NORMAL) Ur Leukocyte Esterase NEGATIVE Urine RBC TNTC H Urine WBC 0-3 Ur Squamous Epith Cells FEW Squamous Urine Bacteria Rare Urine Mucus Moderate Strands Ur Microscopic Review INDICATED Urine Culture Comments NOT INDICATED Nasal Adenovirus (PCR) NOT DETECTED Nasal B. parapertussis DNA (PCR) NOT DETECTED Nasal Coronavir 229E PCR NOT DETECTED Nasal Coronavir HKU1 PCR NOT DETECTED Nasal Coronavir NL63 PCR NOT DETECTED Nasal Coronavir OC43 PCR NOT DETECTED Nasal Enterovir/Rhinovir PCR NOT DETECTED Nasal Influenza B PCR NOT DETECTED Nasal Influenza A PCR NOT DETECTED Nasal Parainfluen 1 PCR NOT DETECTED Nasal Parainfluen 2 PCR NOT DETECTED Nasal Parainfluen 3 PCR NOT DETECTED Nasal Parainfluen 4 PCR NOT DETECTED Nasal RSV (PCR) NOT DETECTED Nasal B.pertussis DNA PCR NOT DETECTED Nasal C.pneumoniae (PCR) NOT DETECTED [place] Human Metapneumo PCR NOT DETECTED Nasal M.pneumoniae (PCR) NOT DETECTED Nasal SARS-CoV-2 (PCR) NOT DETECTED Urine Opiates Screen NEGATIVE Ur Oxycodone Screen NEGATIVE Urine Methadone Screen NEGATIVE Ur Propoxyphene Screen NEGATIVE Ur Barbiturates Screen NEGATIVE Ur Tricyclics Screen NEGATIVE Ur Phencyclidine Scrn NEGATIVE Ur Amphetamine Screen NEGATIVE U Methamphetamines Scrn NEGATIVE U Benzodiazepines Scrn POSITIVE H Urine Cocaine Screen NEGATIVE U Cannabinoids Screen NEGATIVE Ethyl Alcohol 359.6 - Rads (name of study) CTH Radiology: Prelim report reviewed, See rad report CT cervical spine Radiology: Prelim report reviewed, See rad report CT chest with IV contrast Radiology: Prelim report reviewed, See rad report CT thoracic spine Radiology: Prelim report reviewed, See rad report CT A/P with IV contrast Radiology: Prelim report reviewed, See rad report CT lumbar spine Radiology: Prelim report reviewed, See rad report PD MEDICAL DECISION MAKING - ED course Complexity details: reviewed old records, reviewed results, re-evaluated patient, considered differential, d/w patient ED course: presents after having fallen at some time yesterday; patient is amnestic for event. during ED stay (both initially and on repeat exams), she persists in reporting loss of light touch sensation when tested on BLE. during ED stay, she gradually became increasingly appropriate and oriented. she was given 2mg morphine IV for pain with one repeat dose. Findings are most relevant for acute L3 fracture with ventral epidural blood posterior to the L3 vertebral body resulting in moderate canal stenosis with flattening of the ventral thecal sac. D/W Dr. Oralia Gallagher ([place] [facility] [place]) who accepts transfer to [facility] [place] ED. Departure - Departure Disposition: 02 Transfer Acute Care Hosp Clinical Impression: Numbness of legs, Pleural effusion L3 vertebral fracture Qualifiers: Encounter type: initial encounter Fracture type: closed Fracture morphology: other fracture Qualified Code(s): S32.038A - Other fracture of third lumbar vertebra, initial encounter for closed fracture Scalp laceration Qualifiers: Encounter type: initial encounter Qualified Code(s): S01.01XA - Laceration without foreign body of scalp, initial encounter Alcohol intoxication Qualifiers: Complication of substance-induced condition: uncomplicated Qualified Code(s): F10.920 - Alcohol use, unspecified with intoxication, uncomplicated Condition: Stable Discharge Date/Time: 05/10/21 01:42
[2021-05-09 22:08] LABS: BASOPHILS % (AUTO) 0.4 %; EOSINOPHILS # (AUTO) 0.1 10^3/uL (0.0-0.7); EOSINOPHILS % (AUTO) 1.3 %; HCT - HEMATOCRIT 35.2 % (37.0-47.0); HGB - HEMOGLOBIN 11.8 g/dL (12.0-16.0); LYMPHOCYTES # (AUTO) 1.1 10^3/uL (1.5-3.5); LYMPHOCYTES % (AUTO) 20.7 %; MEAN CORPUSCULAR HEMOGLOBIN 30.9 pg (27.0-31.0); MEAN CORPUSCULAR HGB CONC 33.5 g/dL (32.0-36.0); MEAN CORPUSCULAR VOLUME 92.1 fL (81.0-99.0); MEAN PLATELET VOLUME 11.1 fL (7.9-10.8); MONOCYTES # (AUTO) 0.5 10^3/uL (0.0-1.0); MONOCYTES % (AUTO) 9.2 %; NEUTROPHILS # (AUTO) 3.8 10^3/uL (1.5-6.6); NEUTROPHILS % (AUTO) 67.9 %; PLT - PLATELET COUNT 97 10^3/uL (130-450); RED BLOOD COUNT 3.82 10^6/uL (4.20-5.40); RED CELL DISTRIBUTION WIDTH 16.1 % (12.0-15.0); WHITE BLOOD COUNT 5.5 x10^3/uL (4.8-10.8)
[2021-05-09 22:15] LABS: INR 1.7 (0.8-1.2); PT - PROTHROMBIN TIME 18.6 secs (9.9-12.6)
[2021-05-09 22:20] LABS: ALBUMIN 3.6 g/dL (3.2-5.5); BILIRUBIN,TOTAL 3.7 mg/dL (0.2-1.0); CREATININE 0.5 mg/dL (0.4-1.0); ETOH - ETHANOL 359.6 mg/dL; POTASSIUM 3.8 mmol/L (3.5-5.0); TOTAL PROTEIN 7.3 g/dL (6.7-8.2)
[2021-05-09 22:22] LABS: PARTIAL THROMBOPLASTIN TIME 44.6 secs (24.9-33.3)
[2021-05-09 22:34] LABS: MUDS CUTOFF CONCENTRATIONS CUTOFF CONC BELOW:
[2021-05-09 22:35] LABS: BILIRUBIN,URINE NEGATIVE (NEGATIVE); GLUCOSE, URINE (UA) NEGATIVE (NEGATIVE); KETONES,URINE (UA) NEGATIVE (NEGATIVE); LEUKOCYTE ESTERASE, URINE NEGATIVE (NEGATIVE); NITRITE,URINE NEGATIVE (NEGATIVE); OCCULT BLOOD,URINE LARGE (NEGATIVE); PROTEIN,URINE NEGATIVE (NEGATIVE); UROBILINOGEN,URINE 1 (NORMAL) E.U./dL (NORMAL)
[2021-05-09 22:37] LABS: CLARITY,URINE HAZY (CLEAR)
[2021-05-09 22:44] LABS: BACTERIA,URINE Rare /HPF (None Seen); RBC,URINE TNTC /HPF (0-5); SQUAMOUS EPITHELIAL CELL,UR FEW Squamous (<= Few); WBC,URINE 0-3 /HPF (0-5)
[2021-05-09 22:45] LABS: AMPHETAMINE SCREEN,URINE NEGATIVE (NEGATIVE); BARBITURATE SCREEN,UR NEGATIVE (NEGATIVE); BENZODIAZEPINES SCREEN, URINE POSITIVE (NEGATIVE); COCAINE SCREEN URINE NEGATIVE (NEGATIVE); METHADONE SCREEN, URINE NEGATIVE (NEGATIVE); METHAMPHETAMINES SCREEN, URINE NEGATIVE (NEGATIVE); MUCUS,URINE Moderate Strands; OPIATE SCREEN, URINE NEGATIVE (NEGATIVE); OXYCODONE SCREEN, URINE NEGATIVE (NEGATIVE); PROPOXYPHENE SCREEN, URINE NEGATIVE (NEGATIVE); THC CANNABINOID SCREEN, URINE NEGATIVE (NEGATIVE); TRICYCLIC ANTIDEPRESSANT,URINE NEGATIVE (NEGATIVE)
[2021-05-09 22:58] LABS: B. PARAPERTUSSIS- RESP PCR PAN NOT DETECTED; B. PERTUSSIS- RESP PCR PANEL NOT DETECTED; C. PNEUMONIAE- RESP PCR PANEL NOT DETECTED; CORONAVIRUS 229E-RESP PCR NOT DETECTED; CORONAVIRUS HKU1-RESP PCR NOT DETECTED; CORONAVIRUS NL63-RESP PCR NOT DETECTED; CORONAVIRUS OC43-RESP PCR NOT DETECTED; HUMAN METAPNEUMOVIRUS NOT DETECTED; INFLUENZA A- RESP PCR PANEL NOT DETECTED; INFLUENZA B - RESP PCR PANEL NOT DETECTED; M. PNEUMONIAE- RESP PCR PANEL NOT DETECTED; PARAINFLUENZA VIRUS 1 NOT DETECTED; PARAINFLUENZA VIRUS 2 NOT DETECTED; PARAINFLUENZA VIRUS 3 NOT DETECTED; PARAINFLUENZA VIRUS 4 NOT DETECTED; RHINOVIRUS/ENTEROVIRUS NOT DETECTED; RSV- RESP PCR PANEL NOT DETECTED; SARS-CoV-2 -RESP PCR PANEL NOT DETECTED
--- NOTE | 2021-05-09 23:08 | CONSULTATION NOTE ---
Surgery Consult - Consult Date Consult Date: 05/09/21 Requesting Provider: Saurabh - Chief Complaint Chief Complaint: lower extremity weakness after fall yesterday - Home Meds/Allergies Home Medications: Patient History Medication Instructions Recorded Confirmed Gabapentin [Neurontin] 400 mg PO QID 07/19/20 05/10/21 Lactulose [Generlac] 30 gm PO DAILY 07/19/20 05/10/21 Lipase/Protease/Amylase [Bulmaro Rosario 1 each PO TIDWM 07/19/20 05/10/21 12,000 Units Capsule] busPIRone [Buspar] 5 mg PO TID 07/19/20 05/10/21 Furosemide [Lasix] 40 mg PO DAILY 01/08/21 05/10/21 Spironolactone [Aldactone] 100 mg PO DAILY 01/08/21 05/10/21 Sertraline [Zoloft] 1 tab PO DAILY 01/26/21 05/10/21 Allergies/Adverse Reactions: Allergies Allergy/AdvReac Type Severity Reaction Status Date / Time ketorolac tromethamine * Allergy Severe Hives Verified 05/09/21 22:01 [From Toradol] - Vital Signs Vital Signs: Last Vital Signs Temp 36.5 C 05/09/21 22:02 Pulse 85 05/09/21 22:30 Resp 20 05/09/21 22:30 BP 146/72 H 05/09/21 22:30 Pulse Ox 94 05/09/21 22:30 - Lab Results Result Diagrams: 05/09/21 10:00 05/09/21 22:00 - Consultation Note Consultation Note: 60 yo female with known alcoholic liver disease fell down 17 steps yesterday. Unclear what happened until she was brought to the ER [facility] with claim of pain in her back and loss of sensation and weakness in her legs. Also complains of l eft shoulder pain. No headache, neck pain, chest pain, abdominal pain. Patient History Medication Instructions Recorded Confirmed Gabapentin [Neurontin] 400 mg PO QID 07/19/20 05/02/21 Lactulose [Generlac] 30 gm PO DAILY 07/19/20 05/02/21 Lipase/Protease/Amylase [Bulmaro Rosario 1 each PO TIDWM 07/19/20 05/02/21 12,000 Units Capsule] busPIRone [Buspar] 5 mg PO TID 07/19/20 05/02/21 Furosemide [Lasix] 40 mg PO DAILY 01/08/21 05/02/21 Spironolactone [Aldactone] 100 mg PO DAILY 01/08/21 05/02/21 Sertraline [Zoloft] 1 tab PO DAILY 01/26/21 05/02/21 EXAM: Temp Pulse Resp BP Pulse Ox 36.5 C 78 18 103/66 94 05/09/21 22:02 05/09/21 23:00 05/09/21 23:00 05/09/21 23:00 05/09/21 23:00 General: Cervical collar on, strapped to backboard, answers some questions Head: AT/NC Neck: no crepitus, no bruising, trachea midline Chest: clear, no bruising, no palpable fractures, no crepitus CV: regular rate Abdomen: soft, nontender, not distended, no masses, no guarding Back: no bruising, no stepoffs Rectal: decreased sphincter tone, no masses, no blood Extremities: no edema, no bruising, no palpable fractures Neuro: slurred speech, moves upper extremities well, limited lower extremity movements Laboratory Tests 05/09/21 05/09/21 05/09/21 10:00 10:00 10:44 WBC 5.5 RBC 3.82 L Hgb 11.8 L Hct 35.2 L MCV 92.1 MCH 30.9 MCHC 33.5 RDW 16.1 H Plt Count 97 L MPV 11.1 H Neut # (Auto) 3.8 Lymph # (Auto) 1.1 L [place] # (Auto) 0.5 Eos # (Auto) 0.1 Baso # (Auto) 0.0 Absolute Nucleated RBC 0.00 Nucleated RBC % 0.0 PT 18.6 H INR 1.7 H APTT 44.6 H Sodium Potassium Chloride Carbon Dioxide Anion Gap BUN Creatinine Estimated GFR (MDRD) Glucose Calcium Total Bilirubin AST ALT Alkaline Phosphatase Ammonia 49.6 H Total Protein Albumin Globulin Albumin/Globulin Ratio Lipase Urine Color Urine Clarity Urine pH Ur Specific [place] Urine Protein Urine Glucose (UA) Urine Ketones Urine Occult Blood Urine Nitrite Urine Bilirubin Urine Urobilinogen Ur Leukocyte Esterase Urine RBC Urine WBC Ur Squamous Epith Cells Urine Bacteria Urine Mucus Ur Microscopic Review Urine Culture Comments Nasal Adenovirus (PCR) Nasal B. parapertussis DNA (PCR) Nasal Coronavir 229E PCR Nasal Coronavir HKU1 PCR Nasal Coronavir NL63 PCR Nasal Coronavir OC43 PCR Nasal Enterovir/Rhinovir PCR Nasal Influenza B PCR Nasal Influenza A PCR Nasal Parainfluen 1 PCR Nasal Parainfluen 2 PCR Nasal Parainfluen 3 PCR Nasal Parainfluen 4 PCR Nasal RSV (PCR) Nasal B.pertussis DNA PCR Nasal C.pneumoniae (PCR) Maurice Human Metapneumo PCR Nasal M.pneumoniae (PCR) Nasal SARS-CoV-2 (PCR) Urine Opiates Screen Ur Oxycodone Screen Urine Methadone Screen Ur Propoxyphene Screen Ur Barbiturates Screen Ur Tricyclics Screen Ur Phencyclidine Scrn Ur Amphetamine Screen U Methamphetamines Scrn U Benzodiazepines Scrn Urine Cocaine Screen U Cannabinoids Screen Ethyl Alcohol 05/09/21 05/09/21 05/09/21 22:00 22:05 22:30 WBC RBC Hgb Hct MCV MCH MCHC RDW Plt Count MPV Neut # (Auto) Lymph # (Auto) [place] # (Auto) Eos # (Auto) Baso # (Auto) Absolute Nucleated RBC Nucleated RBC % PT INR APTT Sodium 138 Potassium 3.8 Chloride 103 Carbon Dioxide 20 L Anion Gap 15.0 H BUN 10 Creatinine 0.5 Estimated GFR (MDRD) 126 Glucose 116 H Calcium 8.0 L Total Bilirubin 3.7 H AST 65 H ALT 27 Alkaline Phosphatase 128 H Ammonia Total Protein 7.3 Albumin 3.6 Globulin 3.7 Albumin/Globulin Ratio 1.0 Lipase 39 Urine Color DARK YELLOW Urine Clarity HAZY Urine pH 6.0 Ur Specific [place] 1.025 Urine Protein NEGATIVE Urine Glucose (UA) NEGATIVE Urine Ketones NEGATIVE Urine Occult Blood LARGE H Urine Nitrite NEGATIVE Urine Bilirubin NEGATIVE Urine Urobilinogen 1 (NORMAL) Ur Leukocyte Esterase NEGATIVE Urine RBC TNTC H Urine WBC 0-3 Ur Squamous Epith Cells FEW Squamous Urine Bacteria Rare Urine Mucus Moderate Strands Ur Microscopic Review INDICATED Urine Culture Comments NOT INDICATED Nasal Adenovirus (PCR) NOT DETECTED Nasal B. parapertussis DNA (PCR) NOT DETECTED Nasal Coronavir 229E PCR NOT DETECTED Nasal Coronavir HKU1 PCR NOT DETECTED Nasal Coronavir NL63 PCR NOT DETECTED Nasal Coronavir OC43 PCR NOT DETECTED Nasal Enterovir/Rhinovir PCR NOT DETECTED Nasal Influenza B PCR NOT DETECTED Nasal Influenza A PCR NOT DETECTED Nasal Parainfluen 1 PCR NOT DETECTED Nasal Parainfluen 2 PCR NOT DETECTED Nasal Parainfluen 3 PCR NOT DETECTED Nasal Parainfluen 4 PCR NOT DETECTED Nasal RSV (PCR) NOT DETECTED Nasal B.pertussis DNA PCR NOT DETECTED Nasal C.pneumoniae (PCR) NOT DETECTED Maurice Human Metapneumo PCR NOT DETECTED Nasal M.pneumoniae (PCR) NOT DETECTED Nasal SARS-CoV-2 (PCR) NOT DETECTED Urine Opiates Screen NEGATIVE Ur Oxycodone Screen NEGATIVE Urine Methadone Screen NEGATIVE Ur Propoxyphene Screen NEGATIVE Ur Barbiturates Screen NEGATIVE Ur Tricyclics Screen NEGATIVE Ur Phencyclidine Scrn NEGATIVE Ur Amphetamine Screen NEGATIVE U Methamphetamines Scrn NEGATIVE U Benzodiazepines Scrn POSITIVE H Urine Cocaine Screen NEGATIVE U Cannabinoids Screen NEGATIVE Ethyl Alcohol 359.6 Imaging studies: CT head, neck and c-spine, chest, abdomen, pelvis: pending ASSESS: 1- Alcohol intoxication with EtOH level 360 2- alcoholic liver disease with Bili 3.7, INR 1.7, TIPS catheter for cirrhosis, elevated NH3 level 3- Fall yesterday down stairs, no obvious trauma, but exam unreliable due to intoxication 4- Right foot weakness, bilateral light touch deficit both legs 5- CT lumbar spine shows L3 compression fracture with bony retropulsion and epidural hematoma 6- Chronic right pleural effusion 7- No intraabdominal injury by CT, no chest injury RECOMMEND: Patient transferred to [facility] for management of lumbar spine injury
[2021-05-09] MEDS ORDERED: IOPAMIDOL-300 50 ML VIAL IVP ONE (23:11)
[2021-05-09] MEDS ORDERED: IOPAMIDOL-300 50 ML VIAL ONE (23:14)
[2021-05-10] MEDS ORDERED: MORPHINE 2 MG/ML CARPUJECT IVP STA ×2 (00:11→00:44)
[2021-05-10] MEDS ORDERED: SODIUM CHLORIDE 0.9% 1,000 ML IV STA (00:44)
[2021-05-10] MEDS ORDERED: TETANUS/DIPHTHERIA/PERTUSSIS 0.5 ML SYRINGE IM ONE (00:48)
[2021-05-10 01:23] VITALS: BP 102/64
[2021-05-10] MEDS ORDERED: LORazepam 2 MG/ML VIAL IVP STA (01:30)
--- NOTE | 2021-05-10 07:39 | CT Report ---
PROCEDURE: HEAD WO INDICATIONS: AMS, fell yesterday TECHNIQUE: Noncontrast 4.5 mm thick angled axial sections acquired from the foramen magnum to the vertex. For r adiation dose reduction, the following was used: automated exposure control, adjustment of mA and/or kV according to patient size. COMPARISON: FINDINGS: Image quality: Excellent. CSF spaces: Basal cisterns are patent. No extra-axial fluid collections. The ventricles are symmet cari in size and shape. Brain: No intracranial bleeds or masses. There is cerebral volume loss for age, with resultant vent ricular and sulcal prominence. There are periventricular and deep white matter chronic small vessel ischemic changes. There is intracranial internal carotid artery atherosclerosis. Skull and face: Calvarium and visualized facial bones appear intact, without suspicious lesions. Sinuses: Mild mucosal thickening in the right maxillary sinus. The mastoids are clear. IMPRESSION: No acute intracranial disease process. Reviewed by: Maricarmen Welch MD, PhD on 05/10/2021 7:38 AM PDT Approved by: Maricarmen Welch MD, PhD on 05/10/2021 7:38 AM PDT Station ID: [id number]
--- NOTE | 2021-05-10 07:42 | CT Report ---
PROCEDURE: CERVICAL SPINE WO INDICATIONS: fell yesterday, weakness and numbness TECHNIQUE: Noncontrast 3 mm thick sections acquired from the skull base to the T4 level. Sagittal and coronal r eformats were then constructed. For radiation dose reduction, the following was used: automated exp osure control, adjustment of mA and/or kV according to patient size. COMPARISON: 11/10/2015. FINDINGS: Image quality: Excellent. Bones: No acute fractures or dislocations. Chronic appearing compression fracture involving the supe rior endplate of the T2 vertebral body noted. Trace degenerative C2-C3 anterolisthesis, C3-C4 retroli sthesis and C4-C5 retrolisthesis. Visualized superior ribs are intact. Spine degenerative disc diseas e and facet arthropathy are noted. Soft tissues: Prevertebral soft tissues are normal in thickness. No paravertebral hematomas. No ap ical pneumothoraces. Partially visualized right-sided pleural fluid collection. IMPRESSION: No acute fracture. No acute osseous lesion. If there is continued clinical concern for pathology, the n MRI should be considered for further evaluation. Reviewed by: Maricarmen Welch MD, PhD on 05/10/2021 7:41 AM PDT Approved by: Maricarmen Welch MD, PhD on 05/10/2021 7:41 AM PDT Station ID: [id number]
--- NOTE | 2021-05-10 09:36 | CT Report ---
PROCEDURE: CHEST W INDICATIONS: fall yesterday, AMS and neurologic c/o CONTRAST: IV CONTRAST: Isovue 300 ml: 100 PO CONTRAST: *NO PO CONTRAST TECHNIQUE: After the administration of intravenous contrast, images were acquired from the pulmonary apices to t he posterior costophrenic angles. Multiplanar MIP reformats were acquired. For radiation dose reduc tion, the following was used: automated exposure control, adjustment of mA and/or kV according to pa tient size. COMPARISON: None. FINDINGS: Image quality: Excellent. Central airways are clear. No focal consolidation. Moderate right pleural effusion with adjacent pass kaycee atelectasis. Mild cardiomegaly. No enlarged mediastinal lymph nodes. Mildly nodular contour liver consistent with cirrhosis. There is also presence of a TIPS. Spleen is m ildly enlarged. No acute bony abnormality. Ruptured bilateral subpectoral implants. No axillary lymphadenopathy. IMPRESSION: Moderate right pleural effusion with adjacent passive atelectasis. Cirrhosis with TIPS. Reviewed by: Hans Jorgensen on 05/10/2021 8:35 AM NATHALIE Approved by: Hans Jorgensen on 05/10/2021 8:35 AM NATHAILE Station ID: [id number]
--- NOTE | 2021-05-10 09:45 | CT Report ---
PROCEDURE: Abdomen/Pelvis W INDICATIONS: fall yesterday, neurologic complaints and AMS CONTRAST: IV CONTRAST: Isovue 300 ml: 100 PO CONTRAST: *NO PO CONTRAST TECHNIQUE: After the administration of 100 mL Isovue-300 IV contrast, 5 mm thick sections acquired from the diap hragms to the symphysis. 5 mm thick coronal and sagittal reformats were acquired. For radiation dos e reduction, the following was used: automated exposure control, adjustment of mA and/or kV accordin g to patient size. COMPARISON: CT abdomen/pelvis December 21, 2020. FINDINGS: Image quality: Excellent. Moderate right pleural effusion. Cirrhotic liver with TIPS. Subtle densities in the gallbladder likely gallstones. Normal appearance o f the pancreas. Mild thyromegaly. Normal adrenal glands. Normal enhancement of the kidneys. 3 to 4 mm nonobstructing left kidney stone. Additional nonobstruct ing bilateral punctate stones. No hydronephrosis. A catheter balloon in place. No small bowel obstruction. Normal appendix. No free fluid or free air in the abdomen. Uterus is anteverted. Normal caliber of the aorta with scattered vascular calcification. Normal inferior vena cava. Remote L2 compression fracture with less than 25% height loss. L3 compression fracture with approximately 6 mm bony retropulsion. There is also small amount of epid ural hemorrhage adjacent to the fracture. There is less than 25% height loss. Mild multilevel thoraco lumbar spondylosis. IMPRESSION: 1. No acute intra-abdominal abdomen. 2. New L2 compression fracture with 6 mm of bony retropulsion into the spinal canal. There is also sm all amount of epidural hemorrhage adjacent to the fracture. There is less than 25% loss. 3. Nonobstructing kidney stones 4. Moderate right pleural effusion. 5. Cirrhosis with TIPS and mild splenomegaly. Note: No significant discrepancy in the preliminary report. Reviewed by: Hans Jorgensen on 05/10/2021 8:44 AM NATHALIE Approved by: Hans Jorgensen on 05/10/2021 8:44 AM NATHALIE Station ID: [id number]
--- NOTE | 2021-05-10 10:13 | CT Report ---
PROCEDURE: THORACIC SPINE W INDICATIONS: fall, weakness/numbness CONTRAST: IV CONTRAST: Isovue 300 ml: 100 PO CONTRAST: *NO PO CONTRAST TECHNIQUE: After the administration of intravenous Isovue contrast, 3 mm thick sections acquired through the lev els of interest. Sagittal and coronal reformats were then constructed. For radiation dose reduction, the following was used: automated exposure control, adjustment of mA and/or kV according to patient size. COMPARISON: None. FINDINGS: Image quality: Excellent. Bones: No acute fracture or traumatic well aligned. Remote T2 superior endplate compression fracture versus Schmorl's node. No significant facet hypertrophy. Soft tissues: Moderate right pleural effusion. TIPS catheter present. IMPRESSION: 1. No acute thoracic spine fracture or traumatic malalignment. 2. Possible remote superior T2 endplate compression fracture with minimal height loss or Schmorl's no de. 3. Right-sided pleural effusion. Note: No significant discrepancy in the preliminary report Reviewed by: Hans Jorgensen on 05/10/2021 9:11 AM NATHALIE Approved by: Hans Jorgensen on 05/10/2021 9:11 AM NATHALIE Station ID: [id number]
--- NOTE | 2021-05-10 10:22 | CT Report ---
PROCEDURE: LUMBAR SPINE W INDICATIONS: fall, weakness/numbness CONTRAST: IV CONTRAST: Isovue 300 ml: 100 PO CONTRAST: *NO PO CONTRAST TECHNIQUE: After the administration of intravenous Isovue contrast, 3 mm thick sections acquired from the T12 le celina to the sacrum. Sagittal and coronal reformats were constructed. For radiation dose reduction, t he following was used: automated exposure control, adjustment of mA and/or kV according to patient s ize. COMPARISON: None. FINDINGS: Image quality: Excellent. Normal sagittal alignment. Remote L2 compression fracture with less than 25% height loss. Acute L3 compression fracture with approximately 25% height loss and 6 mm bony retropulsion. This berto ng with small amount of epidural hemorrhage adjacent to the fracture moderately narrows the spinal ca nal. Facet arthrosis throughout the lumbar spine. Mild multilevel intervertebral disc height loss most georgina arent at L1-2, L4-5, and L5-S1. Moderate right pleural effusion. TIPS catheter. IMPRESSION: Acute L3 compression fracture with retropulsion and a small amount of epidural hemorrhage moderately narrowing the spinal canal. There is approximately 25% loss of the vertebral body. Remote L2 compression fracture. Note: No acute discrepancy in the preliminary report. Reviewed by: Hans Jorgensen on 05/10/2021 9:21 AM NATHALIE Approved by: Hans Jorgensen on 05/10/2021 9:21 AM NATHALIE Station ID: [id number]
== END 2021-05-10 01:42 | disposition short-term general hospital (02) ==
LOC: ED 21:51
DX: S32.039A Unspecified fracture of third lumbar vertebra, initial encounter for closed fracture (principal); S34.103A Unspecified injury to L3 level of lumbar spinal cord, initial encounter; S01.01XA Laceration without foreign body of scalp, initial encounter; S20.02XA Contusion of left breast, initial encounter; S10.93XA Contusion of unspecified part of neck, initial encounter; S40.012A Contusion of left shoulder, initial encounter; S40.011A Contusion of right shoulder, initial encounter; W10.9XXA Fall (on) (from) unspecified stairs and steps, initial encounter; Y92.009 Unspecified place in unspecified non-institutional (private) residence as the place of occurrence of the external cause; Z23 Encounter for immunization; F10.920 Alcohol use, unspecified with intoxication, uncomplicated; Y90.8 Blood alcohol level of 240 mg/100 ml or more; K70.30 Alcoholic cirrhosis of liver without ascites; R20.0 Anesthesia of skin; J90 Pleural effusion, not elsewhere classified; Z20.822 Contact with and (suspected) exposure to COVID-19
CPT/HCPCS: 0202U; 36415; 70450; 71260; 72125; 72129; 72132; 74177; 80053; 80306; 80320; 81001; 82140; 83690; 85025; 85610; 85730; 90471; 90715; 96374; 96376; 99285; J2060; Q9967; 81003; 87086

== ENCOUNTER 2021-05-24 17:03 | Outpatient (CLI) | payer MEDICAID | END 2021-05-24 17:04 | disposition E | LOC: EMS 17:03 ==